=== PATIENT | male | born 1945 | race Caucasian/White ===

== ENCOUNTER 2022-05-24 18:14 | Outpatient (CLI) | payer MEDICARE, SELFPAY ==
--- OUTSIDE RECORDS SUMMARY | 2022-05-24 18:22 | XMS_ITS | Encounter Summary ---
:1945 Author Organization [facility] Address [address] [place] [id number] Care Team Providers Name Role Phone Elsewhere, Pcp Primary Care Provider Unavailable Reason for Visit Reason Comments Med Refill Encounter Details Date Type Department Care Team Description 09/06/2021 Refill Department of Family Medicine Davi Dean APRN, Med Refill in [facility] ynes RussellNYelena, M.S.N. [address] [place] [phone] [place] [phone] (Wo rk) Social History Tobacco Use Types Packs/Day Years Used Date Smoking Tobacco: Never Smokeless Tobacco: Never Comments: I don't care for it. Alcohol Use Standard Drinks/Week Comments No 0 (1 standard drink = 0.6 oz pure alcoho l) Alcohol Habits Answer Date Recorded How often do you have a drink containing alcohol? Monthly or less 06/14/2019 How many drinks containing alcohol do you have on a Patient refused 01/30/2020 typical day when you are drinking? How often do you have six or more drinks on one Never 06/14/2019 occasion? Comment: Not asked Social Isolation Answer Date Recorded In a typical week, how many times do you More than three yennifer es a week 06/14/2019 talk on the phone with family, friends, or neighbors? How often do you get together with friends Once a week 01/30/2020 or relatives? How often do you attend islam or More than 4 times per year 06/14/2019 confucianist services? Do you belong to any clubs or Yes 06/14/2019 organizations such as islam groups, unions, fraternal or athletic groups, or school groups? How often do you attend meetings of the More than 4 times pe r year 06/14/2019 clubs or organizations you belong to? Are you now , , , 06/14/2019 , never or living with a partner? Physical Activity Answer Date Recorded On average, how many days per week do you engage in 2 days 06/14/2019 moderate to strenuous exercise (like walking fast, running, jogging, dancing, swimming, biking, or other activities that cause a light or heavy sweat)? On average, how many minutes do you engage in exercise Patie nt refused 01/30/2020 at this level? Stress Answer Date Recorded Do you feel stress - tense, restless, nervous, or anxious, N ot at all 01/30/2020 or unable to sleep at night because your mind is troubled all the time - these days? Financial Resource Strain Answer Date Recorded How hard is it for you to pay for the very basics like Not v crystal hard 06/14/2019 food, housing, medical care, and heating? Intimate Partner Violence Answer Date Recorded Within the last year, have you been afraid of your partner o r No 06/14/2019 ex-partner? Within the last year, have you been humiliated or emotionall y No 06/14/2019 abused in other ways by your partner or ex-partner? Within the last year, have you been kicked, hit, slapped, or No 06/14/2019 otherwise physically hurt by your partner or ex-partner? Within the last year, have you been raped or forced to have any No 06/14/2019 kind of sexual activity by your partner or ex-partner? Food Insecurity Answer Date Recorded Within the past 12 months, you worried that your food would Never true 06/14/2019 run out before you got money to buy more. Within the past 12 months, the food you bought just didn't N ever true 06/14/2019 last and you didn't have money to get more. Transportation Needs Answer Date Recorded In the past 12 months, has lack of transportation kept you f rom No 06/14/2019 medical appointments or from getting medications? In the past 12 months, has lack of transportation kept you f rom No 01/30/2020 meetings, work, or getting things needed for daily living? Education Answer Date Recorded What is the highest level of school Bachelor's degree (e.g., BA, AB, 06/14/2019 you have completed or the highest BS) degree you have received? Sex Assigned at Date Recorded Male 04/17/2019 1:04 PM CDT documented as of this encounter Miscellaneous Notes Telephone Encounter - Petra Hines - 09/07/2021 12:45 PM CST Jorge no longer is going to be seen at [facility] due to an insurance change. May return if they get new insurance. ITY CONTROL EXPERT Telephone Encounter - Ofelia Montelongo LKamilaP.N. - 09/06/2021 12:17 PM QUALITY CONTROL EXPERT Last visit with you 08/10/20. Scheduling, please call patient to schedule annual exam for further refills. ITY CONTROL EXPERT documented in this encounter Plan of Treatment Not on filedocumented as of this encounter Visit Diagnoses Not on filedocumented in this encounter Care Teams Tax Commissioner Relationship Specialty Start Date End Date Elsewhere, Pcp PCP - General Family Medicine 12/02/20 documented as of this encounter
--- OUTSIDE RECORDS SUMMARY | 2022-05-24 18:22 | XMS_ITS | Clinical Summary ---
:1945 Author Organization [facility] Address [address] [place] [address] Care Team Providers Name Role Phone Elsewhere, Pcp Primary Care Provider Unavailable Source Comments Patient records contain information from all sites at [facility]. For routine questions regarding patient records, call [phone] during business hours, M-F 8:00 AM - 5:00 PM Central Time. Record requests for emergency care only can be directed to [phone] at any time.[facility] Allergies Active Allergy Reactions Severity Noted Date Comments Adhesive Tape-Silicones Rash 05/05/2011 Aspirin Other (see comments) 11/01/2011 Noseble ed Atorvastatin Other (see comments) 03/13/2009 Chest p ain Bee Venom Protein (Honey Other (see comments) 03/13/20 09 Bee) Clindamycin Other (see comments) 03/13/2009 Lisinopril Other (see comments) 06/09/2020 Elevate d potassium Metformin GI intolerance 07/24/2020 Hypokalemia Penicillin Shortness of breath 03/13/2009 Hives Medications Medication Sig Dispensed Refills Start Date End Date Status EPINEPHrine Inject 0.3 mg 0 06/30/2014 Act maurilio (for_EPIPEN) 0.3 intramuscularly once. mg/0.3 mL injection syringe ibuprofen Take 2 tablets by 0 04/14/2017 A ctive (for_ADVIL,MOTRIN) mouth every 4 (four) 200 mg tablet hours as needed. SIMETHICONE ORAL 80 mg as needed. 0 11/11/2013 Active sodium chloride 3 % Administer 2 sprays 0 06/13/2013 Active mist into each nostril 4 (four) times a day as needed. phenylephrine phenylephrine 0.5% 0 08/23/2013 Active (for_NEO-SYNEPHRINE) nasal spray as needed 0.5 % nasal spray for allergies DOCOSAHEXANOIC Take 1 capsule by 0 06/13/2013 Active ACID/EPA (FISH OIL mouth 3 (three) times ORAL) a day. When remembers blood sugar Pharmacy to dispense 400 strip 2 09/09/2019 Active diagnostic (OneTouch strips that are Ultra Blue Test covered by patient's Strip) strips insurance to allow pt to test blood glucose 4 to 5 times daily. E11.22 lancets Pharmacy to dispense 400 each 2 09/09/2019 Active lancets that are covered by patient's insurance to allow patient to test glucose 4 to 5 times a day. ICD 10: E11.22 FLUTICASONE FUROATE Administer into 0 Active NASAL nostril(s) as needed. insulin 2 Injection by 100 each 8 12/06/2019 Acti ve syringe-needle U-100 abdominal 1 mL 31 gauge x 5/16 subcutaneous route syringe daily. chlorhexidine Swish and spit 2 0 04/23/2020 Active (PERIDEX) 0.12 % (two) times a day. mouthwash fluocinonide (LIDEX) Apply 1 application 20 mL 3 0 Active 0.05 % external topically as needed solution for rash (5-6 x month). insulin lispro Inject 82 Units under 180 mL 3 06/09/2020 Active protamin-lispro the skin 2 (two) (HumaLOG Mix times a day before 75-25,U-100,Insuln) breakfast and dinner. 100 unit/mL (75-25) injection albuterol sulfate Inhale 2 puffs every 1 Inhaler 11 06/09/2020 Active (ProAir RespiClick) 4 (four) hours as 90 mcg/actuation needed for wheezing. aerosol powdr breath activated inhaler allopurinoL Take 1 tablet (100 mg 30 tablet 0 09/06/2021 Active (ZYLOPRIM) 100 mg total) by mouth 2 tablet (two) times a day. 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 type vesse l Diabetes Mellitus Type 2 With Diabetic Chronic Kidney Disease 03/10/2011 Hyperglycemic Overview: Diabetes mellitus without mention of com plication, type II or unspecified type, not stated as uncontrolled Family History Coronary Artery Disease 08/12/2009 Overview: Family history of coronary artery diseas e Hypertensive Heart And Chronic Kidney Disease Without Heart Failure And 08/12/2009 With Stage 3 (Moderate) Chronic Kidney Disease Overview: HTN [Hypertension] Hyperlipidemia 08/12/2009 Resolved Problems Problem Noted Date Resolved Date History Of Falling 10/18/2017 06/08/2020 Proteinuria 12/02/2015 06/08/2020 Myocardial Infarction Acute 11/09/2015 06/08/2020 Skin Cancer (Primary) NOS 11/09/2015 06/08/2020 Infection Helicobacter Pylori 07/24/2013 06/08/2020 Arrest Cardiac 08/12/2009 06/08/2020 Overview: Cardiac Arrest Coronary Stent Status Post 08/12/2009 06/08/2020 Pain Leg Left 06/08/2020 Immunizations Name Administration Dates Next Due Influenza high dose QV(65 years or 06/25/2020 older) (PF) Influenza, Seasonal, Injectable 07/05/2019 Influenza, Unspecified 06/13/2016, 06/25/2015, 06/30/2014, 06/13/2013, 06/17/2012, 10/07/2011, 06/30/2010 PCV13 08/05/2015 PPSV23 07/31/2014, 08/09/2006 SARS-COV-2 (COVID-19) - PFIZER (12 11/24/2020, 11/03/2020 years or older) Td (Adult), adsorbed 08/25/2011, 07/14/2003 Tdap 03/29/2018 influenza high dose (65 years or 08/09/2017, 05/27/2016 older) (PF) Family History Medical History Relation Name Comments Cataracts Brother 1 sabino Diabetes Brother 1 sabino Cataracts Brother 2 asvage Coronary artery disease Brother 2 savage Diabetes Brother 2 savage Pacemaker care Brother 2 savage Stroke Brother 2 savage Cataracts Brother 3 bianca Diabetes Brother 3 bianca Glaucoma Brother 3 bianca Diabetes Brother 4 mulu Urolithiasis Brother 4 mulu Brain Tumor Mother rachana Diabetes Sister domenic ORQUIDEA disease Sister domenic Relation Name Status Comments Brother 1 sabino Brother 2 savage Brother 3 bianca Brother 4 mulu Brother 5 Murphy (Age 3) Cause of : MVA Father Duc (Age 55) Mother rachana (Age 88) Sister domenic Social History Tobacco Use Types Packs/Day Years Used Date Smoking Tobacco: Never Smokeless Tobacco: Never Tobacco Cessation: Counseling Given: No Comments: I don't care for it. Alcohol [...] or relatives? How often do you attend alevism or More than 4 times per year 06/14/2019 bahai services? Do you belong to any clubs or Yes 06/14/2019 organizations such as alevism groups, unions, fraternal or athletic groups, or [...] Date Recorded Male 04/17/2019 1:04 PM CDT Last Filed Vital Signs Vital Sign Reading Time Taken Comments Blood Pressure 134/66 07/24/2020 2:27 PM LAUNCH MANAGER Pulse 64 07/24/2020 2:22 PM LAUNCH MANAGER Temperature 36 ??C (96.8 ??F) 07/24/2020 2:22 PM LAUNCH MANAGER Respiratory Rate 20 07/24/2020 2:22 PM LAUNCH MANAGER Oxygen Saturation 96% 01/30/2020 7:52 AM CDT room ai r Inhaled Oxygen Concentration - - Weight 113 kg (249 lb 9 oz) 07/24/2020 2:22 PM LAUNCH MANAGER Height 193 cm (6' 3.98) 06/10/2020 10:06 AM CDT Body Mass Index 30.39 06/10/2020 10:06 AM CDT Plan of Treatment Health Maintenance Due Date Last Done Comments Hepatitis B Vaccines (1 of 3 - 2004 Risk 3-dose series) Diabetes Education 02/21/2017 09/14/2015 Creatinine Level 12/03/2020 12/04/2019, 07/10/2019, 06/26/2019, Additional history exists Urine Albumin 12/03/2020 12/04/2019, 06/03/2019, 05/04/2018, Additional history exists Hemoglobin A1C 12/06/2020 06/08/2020, 12/04/2019, 06/03/2019, Additional history exists Diabetic Office Visit with Foot 06/09/2021 06/09/2020, 04, Exam 10/18/2017, Additional history exists Dilated Eye Exam 06/12/2021 06/12/2020 (Performed elsewhere), 06/03/2019 (Performed elsewhere), 05/24/2018 (Performed elsewhere), Additional history exists Office Visit for Blood Pressure 07/24/2021 07/24/2020 Check / Re-check Depression Screening (Annual 09/11/2021 PHQ-2) Fall Risk Screen (Annual) 09/11/2021 COVID-19 Vaccine (4 - Booster for 10/10/2021 06/10/2021, , Pfizer series) 11/03/2020 Influenza Vaccine (#1) 2022 06/10/2021, 06/25/2020, 07/05/2019, Additional history exists DTaP,Tdap,and Td Vaccines (3 - Td 03/29/2028 03/29/2018, , or Tdap) 08/25/2011, Additional history exists Pneumococcal vaccine (65+ years) Completed 08/05/2015, , 08/09/2006 Hepatitis C Screening Completed 04/12/2017 Zoster Vaccines Completed 10/01/2021, 06/10/2021 Medical Devices Implanted Type Area Feeder Catcher Device Shelf Model / Serial Identifier Expiration / Lot Date Cardiac Cardiac Heart Stent Stent Lens Ult [id number] Ant +17.0d - [id number] - [id number] Ocular Right: Evan 02/08/2022 [id number] / Implanted: Qty: 1 on 07/16/2019 by Bouchra Owens M.D. at [facility] [employer] [id number] / N/A Lens Ult [id number] Ant +18.0d - Sn/A - [id number] Ocular Evan 02/08/2022 [id number] / Implanted: Qty: 1 on 07/30/2019 by Bouchra Owens M.D. at [facility] [employer] N/A / [id number] Insurance Payer Benefit Plan / Subscriber ID Effective Dates Phone Addre ss Type Group AARP AARP MEDICARE [id number] 2020-Present [phone] [address] [address] [place] [address] Advance Directives For more information, please contact: [phone] Latest Code Status on File Code Status Date Activated Date Inactivated Comments Full Code 07/16/2019 10:14 AM 07/16/2019 12:54 PM Full Code: Discussed Full Code 07/16/2019 8:59 AM 07/16/2019 10:14 AM Full Code: Discussed Care Teams Perfect Bind Machine Operator Relationship Specialty Start Date End Date Elsewhere, Pcp PCP - General Family Medicine 12/02/20
--- OUTSIDE RECORDS SUMMARY | 2022-05-24 18:22 | XMS_ITS | Encounter Summary ---
:1945 Author Organization [facility] Address [address] [place] [address] Care Team Providers Name Role Phone Elsewhere, Pcp Primary Care Provider Unavailable Encounter Details Date Type Department Care Team Description 06/07/2021 Orders Only [facility] PCP [facility] Remberto Johnston, DKamilaOKamila [address] [place] [place] [address] (Wo rk) Social History Tobacco Use Types [...] or relatives? How often do you attend confucianist or More than 4 times per year 06/14/2019 mu-ism services? Do you belong to any clubs or Yes 06/14/2019 organizations such as confucianist groups, unions, fraternal or athletic groups, or [...] PM CDT documented as of this encounter Plan of Treatment Not on filedocumented as of this encounter Visit Diagnoses Not on filedocumented in this encounter Care Teams Assistance Specialist Relationship Specialty Start Date End Date Elsewhere, Pcp PCP - General Family Medicine 12/02/20 documented as of this encounter
--- OUTSIDE RECORDS SUMMARY | 2022-05-24 18:22 | XMS_ITS | Encounter Summary ---
:1945 Author Organization [facility] Address [address] [place] [address] Care Team Providers Name Role Phone Ebony Patton APRN, M.S.Mamta., R.N. Primary Care Provider + Reason for Visit Reason Comments Med Refill allopurinol and metoprolol Encounter Details Date Type Department Care Team Description 10/15/2020 Refill Department of [facility] Ebony Patton M ed Refill (allopurinol Medicine in [place] M. S.[place]., R.N. and metoprolol) [address] [phone] Social History Tobacco Use Types Packs/Day Years [...] or relatives? How often do you attend faith or More than 4 times per year 06/14/2019 baptist services? Do you belong to any clubs or Yes 06/14/2019 organizations such as faith groups, unions, fraternal or athletic groups, or [...] this encounter Miscellaneous Notes Telephone Encounter - Marlen Ceballos L.P.N. - 10/15/2020 1:43 PM CAR SALES CONSULTANT Last visit 07/24/20 Last refill 06/12/20- allopurinol and 06/09/20- metoprolol Next appointment scheduled -12/09/20 Pended 180 And 3 refills for allopurinol and 90 with 3 refills for metoprolol SALES CONSULTANT documented in this encounter Plan of Treatment Not on filedocumented as of this encounter Visit Diagnoses Not on filedocumented in this encounter Care Teams Telegraph Service Clerk Relationship Specialty Start Date End Date Ebony Patton APRN, M.S.N., R.N. PCP - General 12/19/19 12/01/[address] [place], [place] [address] [address] documented as of this encounter
--- OUTSIDE RECORDS SUMMARY | 2022-05-24 18:22 | XMS_ITS | Encounter Summary ---
:1945 Author Organization [facility] Address [address] [place] [address] Care Team Providers Name Role Phone Ebony Patton APRN, M.S.N., R.N. Primary Care Provider + Reason for Visit Reason Comments DMV form Encounter Details Date Type Department Care Team Description 08/21/2020 Clinical Communication Department of [facility] Dick iqbal, DMV form Medicine in [facility] [place], Shaka Wei, R.N. [address] [place] [phone] Social History Tobacco Use Types Packs/Day Years [...] or relatives? How often do you attend religion or More than 4 times per year 06/14/2019 bahai services? Do you belong to any clubs or Yes 06/14/2019 organizations such as religion groups, unions, fraternal or athletic groups, or [...] this encounter Miscellaneous Notes Telephone Encounter - Diana Vail - 08/24/2020 1:30 PM CST Form has been faxed to DMV, scanned to chart and sent to DMV. Patient has been notified. [place] INSPECTOR Telephone Encounter - Diana Vail - 08/21/2020 2:15 PM CST Patient dropped off form for DMV. Form had been partially filled out and placed on [employer] temporary desk in [place]. [place] INSPECTOR documented in this encounter Plan of Treatment Not on filedocumented as of this encounter Visit Diagnoses Not on filedocumented in this encounter Care Teams Critical Care Nurse Specialist Relationship Specialty Start Date End Date Ebony Patton APRN, M.S.N., R.N. PCP - General 12/19/19 12/01/[address] [place] [phone] documented as of this encounter
--- OUTSIDE RECORDS SUMMARY | 2022-05-24 18:22 | XMS_ITS | Encounter Summary ---
:1945 Author Organization [facility] Address [address] [place] [address] Care Team Providers Name Role Phone Ebony Patton APRN, M.SKamilaN., R.N. Primary Care Provider + Reason for Referral Specialty Diagnoses / Procedures Referred By Contact Refer red To Contact Cintia Pierre M.D. [facility] [address] [place] [address] Referral ID Status Reason Start Date Expiration Date Visits Requ ested Visits Authorized TATION WORKER CLEANING EQUIPMENT Encounter Details Date Type Department Care Team Description 10/16/2020 Orders Only [facility] PCP [facility] Artur Rincon Jr., M.D. [address] [place] [phone] (Wo rk) Social History Tobacco Use Types [...] or relatives? How often do you attend restorationism or More than 4 times per year 06/14/2019 worship services? Do you belong to any clubs or Yes 06/14/2019 organizations such as restorationism groups, unions, fraternal or athletic groups, or [...] as of this encounter Plan of Treatment Scheduled Referrals Name Type Priority Associated Order Schedule Diagnoses Covid immunization Outpatient Referral Routine Ex pected: office visit Initial 021 (Approximate), Expires: 10/16/2021 documented as of this encounter Visit Diagnoses Not on filedocumented in this encounter Care Teams Credit And Collections Representative Relationship Specialty Start Date End Date Ebony Patton APRN, M.S.N., R.N. PCP - General 12/19/19 12/01/[address] [place] [address] SAKINA Wise [phone] documented as of this encounter
--- OUTSIDE RECORDS SUMMARY | 2022-05-24 18:22 | XMS_ITS | Encounter Summary ---
:1945 Author Organization [facility] Address [address] [place] [address] Care Team Providers Name Role Phone Ebony Patton APRN, M.SIván, R.N. Primary Care Provider + Reason for Referral Outpatient (Routine) - Closed Specialty Diagnoses / Procedures Referred By Contact Refer red To Contact Diagnoses Pain Leg Bilateral Ebony Patton APRN, [facility] Region Procedures Lower Extremity Arterial (PEPPER) - Standard Protocol Sanjuana, R.N. [address] [place] [phone] Referral ID Status Reason Start Date Expiration Date Visits Requ ested Visits Authorized [id number] Closed 07/24/2020 07/24/2021 1 1 CTOR SHOPPER MARKETING Reason for Visit Outpatient (Routine) - Closed Specialty Diagnoses / Procedures Referred By Contact Refer red To Contact Diagnoses Pain Leg Bilateral Ebony Patton APRN, [facility] Region Procedures Lower Extremity Arterial (PEPPER) - Standard Protocol EloiseSIván, R.N. [address] [place] [phone] Referral ID Status Reason Start Date Expiration Date Visits Requ ested Visits Authorized [id number] Closed 07/24/2020 07/24/2021 1 1 Encounter Details Date Type Department Care Team Description 08/12/2020 Hospital Encounter Department of Nico Patton Bilateral Radiology, [place] APRN, [facility], in [place], MKamilaSKamilaN., R. N. [address] [place], [place] [phone] Social History Tobacco Use Types Packs/Day Years [...] or relatives? How often do you attend latter day or More than 4 times per year 06/14/2019 cheondoism services? Do you belong to any clubs or Yes 06/14/2019 organizations such as latter day groups, unions, fraternal or athletic groups, or [...] PM CDT documented as of this encounter Medications at Time of Discharge Medication Sig Dispensed Refills Start Date End Date albuterol sulfate Inhale 2 puffs every 4 1 Inhaler 11 2019 (ProAir RespiClick) (four) hours as needed 90 mcg/actuation for wheezing. aerosol powdr breath activated inhaler blood sugar Pharmacy to dispense 400 strip 2 09/09/2019 diagnostic (OneTouch strips that are Ultra Blue Test covered by patient's Strip) strips insurance to allow pt to test blood glucose 4 to 5 times daily. E11.22 chlorhexidine Swish and spit 2 (two) 0 04/23/2020 (PERIDEX) 0.12 % times a day. mouthwash DOCOSAHEXANOIC Take 1 capsule by 0 06/13/2013 ACID/EPA (FISH OIL mouth 3 (three) times ORAL) a day. When remembers EPINEPHrine Inject 0.3 mg 0 06/30/2014 (for_EPIPEN) 0.3 intramuscularly once. mg/0.3 mL injection syringe fluocinonide (LIDEX) Apply 1 application 20 mL 3 2019 0.05 % external topically as needed solution for rash (5-6 x month). FLUTICASONE FUROATE Administer into 0 NASAL nostril(s) as needed. ibuprofen Take 2 tablets by 0 04/14/2017 (for_ADVIL,MOTRIN) mouth every 4 (four) 200 mg tablet hours as needed. insulin lispro Inject 82 Units under 180 mL 3 06/09/2020 protamin-lispro the skin 2 (two) times (HumaLOG Mix a day before breakfast 75-25,U-100,Insuln) and dinner. 100 unit/mL (75-25) injection insulin 2 Injection by 100 each 8 12/06/2019 syringe-needle U-100 abdominal subcutaneous 1 mL 31 gauge x 5/16 route daily. syringe lancets Pharmacy to dispense 400 each 2 09/09/2019 lancets that are covered by patient's insurance to allow patient to test glucose 4 to 5 times a day. ICD 10: E11.22 phenylephrine phenylephrine 0.5% 0 08/23/2013 (for_NEO-SYNEPHRINE) nasal spray as needed 0.5 % nasal spray for allergies SIMETHICONE ORAL 80 mg as needed. 0 11/11/2013 sodium chloride 3 % Administer 2 sprays 0 013 mist into each nostril 4 (four) times a day as needed. xjlbgi-lcxlrudq-iostj Take 2 capsules by 540 capsule 3 06/1006/10/2021 se (Creon) mouth 3 (three) times 24,000-76,000-120,000 a day. Unit per DR capsuleIndications: Pancreatitis Chronic (HCC) allopurinoL Take 1 tablet (100 mg 180 tablet 3 06/12/2020 (ZYLOPRIM) 100 mg total) by mouth 2 tablet (two) times a day. metoprolol tartrate Take 0.5 tablets (12.5 90 tablet 3 05/1310/15/2020 (LOPRESSOR) 25 mg mg total) by mouth 2 tablet (two) times a day. documented as of this encounter Plan of Treatment Not on filedocumented as of this encounter Procedures Procedure Name Priority Date/Time Associated Diagnosis Comme nts LOWER EXTREMITY Routine 08/12/2020 11:15 AM Pain Leg Bilateral Results for this ARTERIAL - STANDARD DIRECTOR SHOPPER MARKETING procedur e are in PROTOCOL the results section. documented in this encounter Results LOWER EXTREMITY ARTERIAL - STANDARD PROTOCOL (08/12/2020 11:15 AM DIRECTOR SHOPPER MARKETING) Anatomical Region Laterality Modality Ultrasound Specimen (Source) Anatomical Collection Method Collection Time Re ceived Time Location / / Volume Laterality 08/12/2020 9:49 AM DIRECTOR SHOPPER MARKETING Narrative 08/12/2020 9:49 AM DIRECTOR SHOPPER MARKETING Right: Doppler Waveforms: ? Normal at all levels evaluated. ?? Resting Index: ? PEPPER (PT)- ??1.23 ?PEPPER (DP)- ??1.17 ?TBI- ??0.92 ?? Left: Doppler Waveforms: ? Normal at all levels evaluated. ?? Resting Index: ? PEPPER (PT)- ??1.12 ?PEPPER (DP)- ??1.25 ?TBI- ??0.73 ?? General: PEPPER standard completed Left omar f > 1.4 ?? Conclusions: Normal bilateral ABIs. Wave form evaluation with no evidence of focal severe stenosis. Procedure Note Sean Justice M.D. - 08/14/2020Formatt ing of this note might be different from the original. Right: Doppler Waveforms: Normal at all levels evaluated. Resting Index: PEPPER (PT)- 1.23 PEPPER (DP)- 1.17 TBI- 0.92 Left: Doppler Waveforms: Normal at all l evels evaluated. Resting Index: PPEPER (PT)- 1.12 PEPPER (DP)- 1.25 TBI- 0.73 General: PEPPER standard completed Left omar f > 1.4 Conclusions: Normal bilateral ABIs. Wave form evaluation with no evidence of focal severe stenosis. Ebony Patton APRN, M.S.N., R.N. CV VASCULAR PROCED URES documented in this encounter Visit Diagnoses Diagnosis Pain Leg Bilateral documented in this encounter Care Teams Spice Cleaner Relationship Specialty Start Date End Date Ebony Patton APRN, M.S.N., R.N. PCP - General 12/19/19 12/01/[address] [place], [place] [address] [phone] documented as of this encounter
--- OUTSIDE RECORDS SUMMARY | 2022-05-24 18:22 | XMS_ITS | Encounter Summary ---
:1945 Author Organization [facility] Address [address] [place] [address] Care Team Providers Name Role Phone Elsewhere, Pcp Primary Care Provider Unavailable Reason for Visit Reason Comments Med Refill Encounter Details Date Type Department Care Team Description 11/09/2021 Refill Department of Family Medicine Ebony Patton APRN, Med Refill in [facility] [place] ynes M.S.N., R.N. [address] [place] [phone] [place] [phone] (Wo rk) Social History Tobacco Use Types [...] or relatives? How often do you attend yarsanism or More than 4 times per year 06/14/2019 anabaptist services? Do you belong to any clubs or Yes 06/14/2019 organizations such as yarsanism groups, unions, fraternal or athletic groups, or [...] this encounter Miscellaneous Notes Telephone Encounter - Ofelia Montelongo L.P.N. - 11/09/2021 8:19 AM FIRE OFFICER Spoke with patient. Meds were not meant to go to us. Pt will call [facility] to get this fixed. OFFICER Telephone Encounter - Ofelia Montelongo L.P.N. - 11/09/2021 8:11 AM FIRE OFFICER Last visit with you 08/12/20. Scheduling, please call patient to schedule annual exam for further refills. OFFICER documented in this encounter Plan of Treatment Not on filedocumented as of this encounter Visit Diagnoses Not on filedocumented in this encounter Care Teams Steam Hammer Operator Relationship Specialty Start Date End Date Elsewhere, Pcp PCP - General Family Medicine 12/02/20 documented as of this encounter
--- OUTSIDE RECORDS SUMMARY | 2022-05-24 18:22 | XMS_ITS | Encounter Summary ---
:1945 Author Organization [facility] Address [address] [place] [address] Care Team Providers Name Role Phone Ebony Patton APRN M.S.N., R.N. Primary Care Provider + Reason for Referral Outpatient (Routine) - Closed Specialty Diagnoses / Procedures Referred By Contact Refer red To Contact Diagnoses Pain Leg Bilateral [facility]ony [facility] Region Procedures Lower Extremity Arterial (PEPPER) - Standard Protocol M.S.Mamta., R.N. [address] [place] [phone] Referral ID Status Reason Start Date Expiration Date Visits Requ ested Visits Authorized [id number] Closed 07/24/2020 07/24/2021 1 1 TMILLER Reason for Visit Reason Comments Medication Question switching insulin d/t covera ge Leg Pain bilat notice when up doing w ork Outpatient (Routine) - Canceled Specialty Diagnoses / Procedures Referred By Contact Refer red To Contact Family Medicine Ebony Patton [facility] Region M.S.N., R.N. [address] [place] [phone] 1 Referral ID Status Reason Start Date Expiration Date Visits V isits Requested Authorized [id number] Canceled 06/09/2020 06/09/2021 1 1 Encounter Details Date Type Department Care Team Description 07/24/2020 Office Visit Department of Family Nico Patton Bilateral (Primary Dx); Medicine in Eb[place], NETEZZA ARCHITECT, Diabetes [facility] Type 2 With Diabetic Chronic Kidney Disease Hyperglycemic (HCC) Shaka Hood, R.N. [address] [place] [address] [phone] Social History Tobacco Use Types Packs/Day Years [...] or relatives? How often do you attend yazidi or More than 4 times per year 06/14/2019 mormonism services? Do you belong to any clubs or Yes 06/14/2019 organizations such as yazidi groups, unions, fraternal or athletic groups, or [...] PM CDT documented as of this encounter Last Filed Vital Signs Vital Sign Reading Time Taken Comments Blood Pressure 134/66 07/24/2020 2:27 PM GRISTMILLER Pulse 64 07/24/2020 2:22 PM GRISTMILLER Temperature 36 ??C (96.8 ??F) 07/24/2020 2:22 PM GRISTMILLER Respiratory Rate 20 07/24/2020 2:22 PM GRISTMILLER Oxygen Saturation - - Inhaled Oxygen Concentration - - Weight 113 kg (249 lb 9 oz) 07/24/2020 2:22 PM GRISTMILLER Height - - Body Mass Index 30.39 06/10/2020 10:06 AM CDT documented in this encounter Progress Notes Ebony Patton, CHARY, C.N.P., M.S.N. - 07/24/2020 2:30 PM CST SUBJECTIVE CHIEF COMPLAINT/REASON FOR VISIT Chief Complaint Patient presents with ??? Medication Question switching insulin d/t coverage ??? Leg Pain bilat notice when up doing work HISTORY OF PRESENT ILLNESS Jorge Chance is a 75 y.o. male who presents to the clinic today for evaluation of right lower calf leg pain progressing over the last month, and wanting to know this provider's recommendationsfor Medicare supplemental insurance, and to see if switching from humalog to novolog flex pen (70-30) would be a problem if he switched insurance companies. He reports right lower calf pain worse with standing and walking around, and intermittently in the left leg, also some twitching in his legs, sometimes in the overnight hours per his . He is wondering what could be causing this. He states his legs seem to be cold at times. He does have neuropathy and is wondering if this could be a pronblem. Also reports his feet become purple at times. He stateshe does not feel like he has good circulation. He completed a lower extremity ultrasound in 2014 that was normal PEPPER. He presents with his Clara. He has a medical history positive for diabetes mellitus type 2, chronic pancreatitis, last visit with GI was in March of 2019, history of H pylori gastritis in 2012, hypertensive heart and chronic kidney disease without heart failure, history of coronary artery disease with out of hospital cardiac arrest in 2005 secondary to LAD stenosis with anterior UT, hyperlipidemia, and gout. His last colonoscopy was in 2012 is due for repeat 2022. ?? CURRENT MEDICATIONS Current Outpatient Medications Medication Sig Dispense Refill ??? albuterol sulfate (ProAir RespiClick) 90 mcg/actuation aerosol powdr breath activated inhaler Inhale 2 puffs every 4 (four) hours as needed for wheezing. 1 Inhaler 11 ??? allopurinoL (ZYLOPRIM) 100 mg tablet Take 1 tablet (100 mg total) by mouth 2 (two) times a day. 180 tablet 3 ??? blood sugar diagnostic (OneTouch Ultra Blue Test Strip) strips Pharmacy to dispense strips that are covered by patient's insurance to allow pt to test blood glucose 4 to 5 times daily. E11.22 400 strip 2 ??? DOCOSAHEXANOIC ACID/EPA (FISH OIL ORAL) Take 1 capsule by mouth 3 (three) times a day. When remembers ??? EPINEPHrine (for_EPIPEN) 0.3 mg/0.3 mL injection syringe Inject 0.3 mg intramuscularly once. ??? fluocinonide (LIDEX) 0.05 % external solution Apply 1 application topically as needed for rash (5-6 x month). 20 mL 3 ??? FLUTICASONE FUROATE NASAL Administer into nostril(s) as needed. ??? ibuprofen (for_ADVIL,MOTRIN) 200 mg tablet Take 2 tablets by mouth every 4 (four) hours as needed. ??? insulin lispro protamin-lispro (HumaLOG Mix 75-25,U-100,Insuln) 100 unit/mL (75-25) injection Inject 82 Units under the skin 2 (two) times a day before breakfast and dinner. 180 mL 3 ??? insulin syringe-needle U-100 1 mL 31 gauge x 5/16 syringe 2 Injection by abdominal subcutaneous route daily. 100 each 8 ??? lancets Pharmacy to dispense lancets that are covered by patient's insurance to allow patient totest glucose 4 to 5 times a day. ICD 10: E11.22 400 each 2 ??? gnafub-kcsirhbk-repqlht (Creon) 24,000-76,000-120,[address] capsule Take 2 capsules by mouth 3 (three) times a day. 540 capsule 3 ??? metoprolol tartrate (LOPRESSOR) 25 mg tablet Take 0.5 tablets (12.5 mg total) by mouth 2 (two) times a day. 90 tablet 3 ??? SIMETHICONE ORAL 80 mg as needed. ??? sodium chloride 3 % mist Administer 2 sprays into each nostril 4 (four) times a day as needed. ??? chlorhexidine (PERIDEX) 0.12 % mouthwash Swish and spit 2 (two) times a day. ??? phenylephrine (for_NEO-SYNEPHRINE) 0.5 % nasal spray phenylephrine 0.5% nasal spray as needed for allergies No current facility-administered medications for this visit. ALLERGIES/CONTRAINDICATIONS Allergies Allergen Reactions ??? Adhesive Tape-Silicones Rash ??? Aspirin Other (see comments) Nosebleed ??? Atorvastatin Other (see comments) Chest pain ??? Bee Venom Protein (Honey Bee) Other (see comments) ??? Clindamycin Other (see comments) ??? Lisinopril Other (see comments) Elevated potassium ??? Metformin GI intolerance Hypokalemia ??? Penicillin Shortness of breath Hives REVIEW OF SYSTEMS Constitutional: Positive for fatigue. Genitourinary: Positive for urgency and erectile dysfunction. Musculoskeletal: Positive for back pain. Neurological: Positive for numbness or shooting pain in hands, arms, legs, or feet. The following systems were negative: Skin, Eyes, ENT, CV, Respiratory, GI, Hematologic MEDICAL HISTORY Past Medical History: Diagnosis Date ??? Arrest Cardiac (HCC) ??? Cataract 2009 ??? Coronary Artery Disease (Unspecified) ??? Diabetes Mellitus NOS ??? History Of Falling ??? Hyperlipidemia ??? Hypertension NOS ??? Infection Helicobacter Pylori ??? Myocardial Infarction Acute (HCC) ??? Pancreatitis Chronic (HCC) ??? Proteinuria ??? Skin Cancer (Primary) NOS SURGICAL HISTORY Past Surgical History: Procedure Laterality Date ??? CAROTID ARTERY ANGIOPLASTY 2005 ??? CORONARY STENT PLACEMENT 2005 ??? MOUTH SURGERY ??? OSTECTOMY OF CALCANEUS FOR SPUR N/A 02/23/2007 Excision of calcaneal spur ??? OTHER SURGICAL HISTORY 2000 bone spurs removed ??? PHACOEMULSIFICATION CATARACT WITH INTRAOCULAR LENS IMPLANTATION Right 07/16/2019 Procedure: PHACOEMULSIFICATION CATARACT WITH INTRAOCULAR LENS IMPLANTATION; Surgeon: Bouchra Ta M.D.; Location: [facility] OR ??? PHACOEMULSIFICATION CATARACT WITH INTRAOCULAR LENS IMPLANTATION Left 07/30/2019 Procedure: PHACOEMULSIFICATION CATARACT WITH INTRAOCULAR LENS IMPLANTATION; Surgeon: Bouchra Ta M.D.; Location: [facility] OR ??? PLACEMENT OF STENT IN CARDIAC CONDUIT 2005 OBJECTIVE VITAL SIGNS BP 134/66 Pulse 64 Temp 36 ??C (Temporal) Resp 20 Wt 113 kg BMI 30.39 kg/m?? PHYSICAL EXAMINATION General: Alert male in no acute distress, nontoxic in appearance, well dressed, normal hygiene. HEENT: Head normocephalic, atraumatic. Neck: Supple. Cardiovascular: Regular rate, rhythm, S1, S2. No edema. Respiratory: Lungs clear to auscultation in the anterior chest, easy respirations. Nonlabored breathing. Neurologic: Alert, oriented, steady gait. Extremities: Cool lower extremities bilaterally, pedis pulses 2+. Negative homans test. No edema. Noopen sores or erythema. Cap refill less than 2 seconds. ASSESSMENT / PLAN #1 Pain Leg Bilateral - Lower Extremity Arterial (PEPPER) - Standard Protocol; Future; Expected date: 07/24/2020 #2 Diabetes Mellitus Type 2 With Diabetic Chronic Kidney Disease Hyperglycemic (HCC) Differential diagnosis includes spinal stenosis, electrolyte disturbance, neuropathy, claudication, venous insufficiency, atherosclerosis, myofascial pain. We discussed with his cool feet bilaterally, although good pulses, there may be concern for lower extremity atherosclerosis. No difference in calf circumference. No varicosities. No erythema, warmth. Negative Homans signs. Pedis pulse 2+. This may be the start of claudication. He does have a history of coronary artery disease. We discussed doing a Mag level, electrolytes to see if he would have someclonus sort of symptoms from electrolytes changes. He defers. He would like to start with a standardABI per ask Camejo Expert for atherosclerosis. He states that his brother recently got treated for plaque buildup in his legs. Recommend stretching, adequate hydration, and close observation. We also discussed switching from Humalog to NovoLog would not be an issue. Recommend he choose a supplemental insurance that is most comfortable with his financial strategies,and directed care. Patient agrees with plan, verbalizes understanding of plan, and is receptive to plan. Patient was provided verbal and written education. Patient has no further questions or concerns. Patient will follow up as needed or at the next scheduled return visit. Patient will call the clinic if there are any further questions or concerns in the meantime. Thank you for letting me be involved in your care. TMILLER documented in this encounter Plan of Treatment Not on filedocumented as of this encounter Results LOWER EXTREMITY ARTERIAL - STANDARD PROTOCOL (08/12/2020 11:15 AM GRISTMILLER) Anatomical Region Laterality Modality Ultrasound Specimen (Source) Anatomical Collection Method Collection Time Re ceived Time Location / / Volume Laterality 08/12/2020 9:49 AM GRISTMILLER Narrative 08/12/2020 9:49 AM GRISTMILLER Right: Doppler Waveforms: ? Normal at all [...] at all l evels evaluated. Resting Index: PEPPER (PT)- 1.12 PEPPER (DP)- 1.25 TBI- 0.73 General: PEPPER standard completed Left omar f > 1.4 Conclusions: Normal bilateral ABIs. Wave form evaluation with no evidence of focal severe stenosis. Ebony Patton APRN, M.S.N., R.N. CV VASCULAR PROCED URES documented in this encounter Visit Diagnoses Diagnosis Pain Leg Bilateral - Primary Diabetes Mellitus Type 2 With Diabetic C hronic Kidney Disease Hyperglycemic (HCC) Pain Leg Bilateral documented in this encounter Care Teams District Resource Officer Relationship Specialty Start Date End Date Ebony Patton APRN, M.S.N., R.N. PCP - General 12/19/19 12/01/[address] [place] [phone] documented as of this encounter
--- OUTSIDE RECORDS SUMMARY | 2022-05-24 18:22 | XMS_ITS | Encounter Summary ---
:1945 Author Organization [facility] Address [address] [place] [address] Care Team Providers Name Role Phone Ebony Patton APRN, M.S.N., R.N. Primary Care Provider + Encounter Details Date Type Department Care Team Description 11/24/2020 Immunization Business Service Irma Riddle [facility] For COVID-19 [facility] [place] Vaccine Immunization [place] [id number] [facility] [address] [place] [phone] Social History Tobacco Use Types Packs/Day Years [...] or relatives? How often do you attend mormonism or More than 4 times per year 06/14/2019 catholic services? Do you belong to any clubs or Yes 06/14/2019 organizations such as mormonism groups, unions, fraternal or athletic groups, or [...] filedocumented as of this encounter Visit Diagnoses Diagnosis Encounter For COVID-19 Vaccine Immunizat ion documented in this encounter Care Teams Warehouse Logistics Manager Relationship Specialty Start Date End Date Ebony Patton APRN, M.S.N., R.N. PCP - General 12/19/19 12/01/[address] [place] [address] [place] [phone] documented as of this encounter
--- OUTSIDE RECORDS SUMMARY | 2022-05-24 18:22 | XMS_ITS | Encounter Summary ---
:1945 Author Organization [facility] Address [address] [place] [address] Care Team Providers Name Role Phone Ebony Patton APRN, M.SPilar., R.N. Primary Care Provider + Reason for Referral Specialty Diagnoses / Procedures Referred By Contact Refer red To Contact [facility] [address] [place] [phone] Referral ID Status Reason Start Date Expiration Date Visits Requ ested Visits Authorized CE TEST ENGINEER Encounter Details Date Type Department Care Team Description 11/03/2020 Immunization [facility]co unter For COVID-19 in [place], [place] Vaccine Immunization [address] (Primary Dx) [place] [phone] Social History Tobacco Use Types Packs/Day Years [...] or relatives? How often do you attend denominational or More than 4 times per year 06/14/2019 temple services? Do you belong to any clubs or Yes 06/14/2019 organizations such as denominational groups, unions, fraternal or athletic groups, or [...] pay for the very basics like Not mayra crystal hard 06/14/2019 food, housing, medical care, [...] Treatment Scheduled Referrals Name Type Priority Associated Diagnoses Order S chedule Covid immunization Outpatient Referral Routine Encounter For E xpected: office visit COVID-19 Vaccine 11/24/2020, Subsequent; 21 days Immunization Expires: 11/03/2023 documented as of this encounter Visit Diagnoses Diagnosis Encounter For COVID-19 Vaccine Immunizat ion - Primary documented in this encounter Care Teams City Letter Carrier Relationship Specialty Start Date End Date Ebony Patton APRN, M.S.N., R.N. PCP - General 12/19/19 12/01/[address] [place] [address] [place] [phone] documented as of this encounter
--- OUTSIDE RECORDS SUMMARY | 2022-05-24 18:23 | XMS_ITS | Encounter Summary ---
:1945 Author Organization [facility] Address [address] [place] [id number] Care Team Providers Name Role Phone Cathy Mccoy M.D. Primary Care Provider Unavailable Reason for Visit Reason Onset Date Comments Med Refill 10/11/2019 Encounter Details Date Type Department Care Team Description 10/11/2019 Clinical Communication Department of [facility] Diane patterson, Med Refill Medicine in Cathy Hood M.D. [address] [address] Social History Tobacco Use Types Packs/Day Years Used Date Smoking Tobacco: Never Smokeless Tobacco: Never Alcohol Use Standard Drinks/Week Comments No 0 [...] or relatives? How often do you attend tenriism or More than 4 times per year 06/14/2019 restorationist services? Do you belong to any clubs or Yes 06/14/2019 organizations such as tenriism groups, unions, fraternal or athletic groups, or [...] this encounter Miscellaneous Notes Telephone Encounter - Asia Hien Blade - 10/11/2019 2:09 PM CST Pended to provider an 90 day supply script. Please see that encounter F MEDICAL OFFICER Telephone Encounter - Jenny Perkins - 10/11/2019 12:09 PM CST Please do not reply to sender,emails are not monitored. Thank you. If you need a prescription refill please call your pharmacy. Please allow 3 business days for processing. Expert RN: N/A (Med Refill Only) Call Center Template: ??? May we leave a message for you on this phone? yes What can I help you with today? Patient is wanting a 90 day supply of his humalog mix. [facility] He will save money by getting a 90 day supply. Please call with questions. ??? If Medication Refill: o What is the name and strength of the medication? o What do you use the medication for? o How many pills do you have left? o What pharmacy do you use (include location)? I will send this information to the appropriate staff member who will look into your concern. Is there anything else I can help you with today? Thank you for calling [facility]. F MEDICAL OFFICER documented in this encounter Plan of Treatment Not on filedocumented as of this encounter Visit Diagnoses Not on filedocumented in this encounter Care Teams Silo Man Relationship Specialty Start Date End Date Cathy Mccoy M.D. PCP - General 02/23/17 12/18/19 documented as of this encounter
--- OUTSIDE RECORDS SUMMARY | 2022-05-24 18:23 | XMS_ITS | Encounter Summary ---
:[address] [facility] Address [address] [place] [address] Care Team Providers Name Role Phone Ebony Ptaton APRN M.S.N., R.N. Primary Care Provider + Reason for Referral Outpatient (Routine) - Closed Specialty Diagnoses / Procedures Referred By Contact Refer red To Contact Diagnoses Cyst Epidermal Karina Herman M.D. Procedures Lesion Excision and Closure [facility] [place] [address] Referral ID Status Reason Start Date Expiration Date Visits Requ ested Visits Authorized [id number] Closed 02/10/2020 02/09/2021 1 1 Reason for Visit Reason Comments Procedure cyst on neck and left should er Outpatient (Routine) - Closed Specialty Diagnoses / Procedures Referred By Contact Refer red To Contact General Surgery Diagnoses Cyst Epidermal Steffany Jose APRN, [facility] C.N.P., M.S.N. [address] [place] [phone] Referral ID Status Reason Start Date Expiration Date Visits V isits Requested Authorized [id number] Closed Specialty 01/30/2020 01/29/2021 1 1 Services Required Encounter Details Date Type Department Care Team Description 02/10/2020 Comprehensive Visit Department of Karina Herman Cyst Ep idermal General Surgery in Junior (Primary Dx) [place], [place] [address] [facility] [address] [place], [place] [phone] Social History Tobacco Use Types Packs/Day Years [...] More than 4 times per year 06/14/2019 jainism services? Do you belong to any clubs [...] Sign Reading Time Taken Comments Blood Pressure - - Pulse - - Temperature 36.2 ??C (97.2 ??F) 02/10/2020 8:32 AM CDT Respiratory Rate 18 02/10/2020 8:32 AM CDT Oxygen Saturation - - Inhaled Oxygen Concentration - - Weight 111 kg (244 lb 4.3 oz) 02/10/2020 8:32 AM CDT Height 193 cm (6' 3.98) 02/10/2020 8:32 AM CDT Body Mass Index 29.75 02/10/2020 8:32 AM CDT documented in this encounter Procedure Notes Karina Herman M.D. - 02/10/2020 8:30 AM CDTAssociated Order(s): Lesion Excision and Closure Post-Procedure Diagnose(s): Cyst Epidermal Lesion Excision and Closure Date/Time: 02/10/2020 11:09 AM Performed by: Karina Herman M.D. Authorized by: Karina Herman M.D. Care team members present 1. Karina Herman M.D. 2. Kathleen Jenkins L.P.N. PROCEDURE DETAILS Number of lesions: 3 Lesion Number 1 Location on body: head/neck Head/Neck: neck Neck: anterior, right side. Size of lesion: 0.5 cm Size of total margins (both edges): 0 cm Size of lesion + margin: 0.5 cm Excision depth: subcutaneous Specimen sent for pathology: no (noted in comment) Malignancy: Benign lesion - Epidermoid cyst (epidermal inclusion or sebaceous cysts) Wound closure / hemostasis: wound closure Wound closure: simple Suture size: 4-0 Suture technique: subcuticular Photo taken: no Lesion Number 2 Location on body: posterior trunk Posterior trunk: left periscapular. Size of lesion: 1 cm Size of total margins (both edges): 0 cm Size of lesion + margin: 1 cm Excision depth: subcutaneous Specimen sent for pathology: no (noted in comment) Malignancy: Benign lesion- Epidermoid cyst (epidermal inclusion or sebaceous cysts) Wound closure / hemostasis: wound closure Wound closure: simple Suture size: 4-0 Suture material: Monocryl Suture technique: subcuticular Photo taken: no Lesion Number 3 Location on body: posterior trunk Posterior trunk: left periscapular. Size of lesion: 0.5 cm Size of total margins (both edges): 0 cm Size of lesion + margin: 0.5 cm Excision depth: subcutaneous Specimen sent for pathology: no (noted in comment) Malignancy: Benign lesion- Epidermoid cyst (epidermal inclusion or sebaceous cysts) Wound closure / hemostasis: wound closure Wound closure: simple Suture size: 4-0 Suture material: Monocryl Photo taken: no CONSENT Consent obtained: written UNIVERSAL PROTOCOL All relevant documentation and testing were reviewed and available. All required blood products, implants, devices and or special equipment were made available as applicable. Pre-procedure verificationwas conducted and the correct site was marked if required. A fire risk assessment was done as applicable. The procedural time-out was conducted prior to performing the procedure and confirmed in a procedural pause. PRE-PROCEDURE DETAILS Procedure purpose: therapeutic Appropriate hand hygiene, gown, cap, mask, protective eyewear, sterile gloves, skin preparation, sterile drape, and strict aseptic technique were utilized as applicable for the procedure.: Yes Site preparation: chlorhexidine SEDATION / ANESTHESIA Anesthesia method: local infiltration Local infiltrate type: lidocaine, with epinephrine POST-PROCEDURE DETAILS Estimated blood loss: minimal Procedure completed successfully: Yes Complications: No apparent complications Tolerance: well tolerated Follow-up: yes, requested as ordered documented in this encounter Consult Notes Karina Herman M.D. - 02/10/2020 8:30 AM CDT SUBJECTIVE CHIEF COMPLAINT/REASON FOR VISIT Neck cyst and left shoulder cyst. Referring provider: Steffany Jose APRN, C.N.Ashok., M.S.N. HISTORY OF PRESENT ILLNESS Jorge Chance is a 74 y.o. man who is referred by Steffany Jose APRN, C.Pete, M.S.N. with a chief complaint of a neck cyst and a left shoulder cyst. The patient has had the neck cyst for several weeks. It is been much larger in size than it is currently. Several days ago the patient and his squeezed a bunch of fluid out of the cyst. In addition, the patient has a cyst over his left scapular area. He has had this skin lesion for about five years or so. It is not drain for several years but he still notes that it is present. PAST MEDICAL HISTORY: Past Medical History: Diagnosis Date ??? Arrest Cardiac (HCC) ??? Coronary Artery Disease (Unspecified) ??? Diabetes Mellitus NOS ??? History Of Falling ??? Hyperlipidemia ??? Hypertension NOS ??? Infection Helicobacter Pylori ??? Myocardial Infarction Acute (HCC) ??? Pancreatitis Chronic (HCC) ??? Proteinuria ??? Skin Cancer (Primary) NOS PAST SURGICAL HISTORY: Past Surgical History: Procedure Laterality Date ??? MOUTH SURGERY ??? OSTECTOMY OF CALCANEUS FOR SPUR N/A 02/23/2007 Excision of calcaneal spur ??? PHACOEMULSIFICATION CATARACT WITH INTRAOCULAR LENS IMPLANTATION Right 07/16/2019 Procedure: PHACOEMULSIFICATION CATARACT WITH INTRAOCULAR LENS IMPLANTATION; Surgeon: Bouchra Ta M.D.; Location: [facility] OR ??? PHACOEMULSIFICATION CATARACT WITH INTRAOCULAR LENS IMPLANTATION Left 07/30/2019 Procedure: PHACOEMULSIFICATION CATARACT WITH INTRAOCULAR LENS IMPLANTATION; Surgeon: Bouchra Ta M.D.; Location: [facility] OR ??? PLACEMENT OF STENT IN CARDIAC CONDUIT 2005 MEDICATIONS: Current Outpatient Medications on File Prior to Visit Medication Sig Dispense Refill ??? albuterol sulfate (ProAir RespiClick) 90 mcg/actuation aerosol powdr breath activated inhaler Inhale 2 puffs every 4 (four) hours as needed for wheezing. 1 Inhaler 11 ??? allopurinol (ZYLOPRIM) 100 mg tablet TAKE 1 TABLET (100 MG) BY MOUTH TWO TIMES A DAY. 180 tablet2 ??? blood sugar diagnostic (MacroSolveuch Ultra Blue Test Strip) strips Pharmacy to dispense strips that are covered by patient's insurance to allow pt to test blood glucose 4 to 5 times daily. E11.22 400 strip 2 ??? diphenhydrAMINE (for_BENADRYL) 25 mg tablet Take 25 mg by mouth as needed. ??? DOCOSAHEXANOIC ACID/EPA (FISH OIL ORAL) Take 1 capsule by mouth 3 (three) times a day. When remembers ??? EPINEPHrine (for_EPIPEN) 0.3 mg/0.3 mL injection syringe Inject 0.3 mg intramuscularly once. ??? fluocinonide (LIDEX) 0.05 % external solution Apply 1 application topically as needed for rash (5-6 x month). 20 mL 3 ??? FLUTICASONE FUROATE NASAL Administer into affected nostril(s). ??? gemfibrozil (LOPID) 600 mg tablet TAKE 1 TABLET (600 MG) BY MOUTH TWO TIMES A DAY. 180 tablet 3 ??? ibuprofen (for_ADVIL,MOTRIN) 200 mg tablet Take 2 tablets by mouth every 4 (four) hours as needed. ??? insulin lispro protamin-lispro (HumaLOG Mix 75-25,U-100,Insuln) 100 unit/mL (75-25) injection Inject 0.9 mL (90 Units total) under the skin 2 (two) times a day. 180 mL 3 ??? insulin syringe-needle U-100 1 mL 31 gauge x 5/16 syringe 2 Injection by abdominal subcutaneous route daily. 100 each 8 ??? lancets Pharmacy to dispense lancets that are covered by patient's insurance to allow patient totest glucose 4 to 5 times a day. ICD 10: E11.22 400 each 2 ??? ofzfno-kscqrnyl-naexkmv (Creon) 24,000-76,000-120,[address] capsule Take 2 capsules by mouth 3 (three) times a day. 540 capsule 3 ??? metoprolol tartrate (LOPRESSOR) 25 mg tablet TAKE 1/2 TABLET (12.5MG) BY MOUTH TWO TIMES A DAY 90 tablet 3 ??? nitroglycerin (NITROSTAT) 0.[address] 1 tablet (0.4 mg total) under the tongue every 5 (five) minutes as needed for chest pain. 25 tablet 0 ??? phenylephrine (for_NEO-SYNEPHRINE) 0.5 % nasal spray phenylephrine 0.5% nasal spray as needed for allergies ??? SIMETHICONE ORAL 80 mg as needed. ??? sodium chloride 3 % mist Administer 2 sprays into each nostril 4 (four) times a day as needed. No current facility-administered medications on file prior to visit. ALLERGIES: Allergies Allergen Reactions ??? Adhesive Tape-Silicones Rash ??? Aspirin Other (see comments) Nosebleed ??? Atorvastatin Other (see comments) Chest pain ??? Bee Venom Protein (Honey Bee) Other (see comments) ??? Clindamycin Other (see comments) ??? Penicillin Shortness of breath Hives Social History Tobacco Use ??? Smoking status: Never Smoker ??? Smokeless tobacco: Never Used Substance Use Topics ??? Alcohol use: No Frequency: Monthly or less Drinks per session: Patient refused Binge frequency: Never FAMILY HISTORY His family history includes Brain Tumor in his mother; Cataracts in his brother, brother, and brother; Coronary artery disease in his brother; Diabetes in his brother, brother, brother, brother, and sister; ORQUIDEA disease in his sister; Glaucoma in his brother; Pacemaker care in his brother; Stroke in his brother; Urolithiasis in his brother. REVIEW OF SYSTEMS OBJECTIVE PHYSICAL EXAM VITAL SIGNS Temp 36.2 ??C (Temporal) Resp 18 Ht 193 cm Wt 111 kg BMI 29.75 kg/m?? GENERAL: Jorge Chance is a well-developed, well-nourished man who appears in no acute distress. NECK: At the base of the patient's right neck just posterior to his anterior sternocleidomastoid there is a small skin cyst. This feels entirely subcutaneous. It is soft and mobile. It is about 5 mm insize. Today, I cannot squish any fluid out of it. BACK: Examination of the left shoulder area reveals actually two small lumps within the skin. One isabout 1 cm in size in the others maybe 5 mm or so in size. The larger one appears to have a skin punctum but I cannot squeeze fluid out of it. They are both soft and mobile. They both feel entirely subcutaneous. LABS: Lab Results Component Value Date WBC 6.0 07/10/2019 HGB 15.4 07/10/2019 HCT 46.7 07/10/2019 PLT 178 07/10/2019 NA 140 12/04/2019 K 4.8 12/04/2019 CL 107 12/04/2019 HCO3 22 07/10/2019 CREATININE 1.40 (H) 12/04/2019 ALT 29 03/28/2019 AST 32 12/04/2019 CALCIUM 9.6 12/04/2019 BILITOT 0.4 03/28/2019 IMAGING: No results found. ASSESSMENT / PLAN #1 Cyst Epidermal PLAN The patient is a 74-year-old gentleman who appears to have three subcutaneous cyst. One is at the base of his right neck and the other two are over his posterior shoulder area. He is interested in excision of all of these today. I explained to the patient and his that this would be a short procedure that I could do for him in the office today. Risks of the procedure would be including but not limited to risk of bleeding, infection and recurrence of the lesions. The patient gave written consent to proceed. The procedure was completed successfully and please see the procedure note for full details. The patient was given post-procedure wound care instructions in a written and verbal format. I will see him back on a p.r.n. basis. Answers for HPI/ROS submitted by the patient on 01/29/2020 Fatigue: Yes No eye issues: Yes No ENT issues: Yes Pain in the calf muscles when walking: Yes No respiratory issues: Yes No GI issues: Yes Muscle pain/stiffness: Yes Change in mole or skin spot: Yes Numbness or shooting pain in hands, arms, legs or feet: Yes Weakness in arms and/or legs: Yes No mental health issues: Yes No blood/lymph issues: Yes Erectile dysfunction: Yes documented in this encounter Plan of Treatment Not on filedocumented as of this encounter Procedures Procedure Name Priority Date/Time Associated Diagnosis Comme nts LESION EXCISION AND Routine 02/10/2020 8:30 AM Cyst Epidermal Results for this CLOSURE CDT procedure are i n the results section. documented in this encounter Results Lesion Excision and Closure (02/10/2020 8:30 AM CDT) Narrative Karina Herman M.D. - 02/10/2020 8:30 AM CDT Karina Herman M.D. ? 02/10/2020 11:12 AM Lesion Excision and Closure Date/Time: 02/10/2020 11:09 AM Performed by: Karina Herman M.D. Authorized by: Karina Herman M.D. Care team members present 1. Karina Herman M.D. 2. Kathleen Jenkins L.P.N. PROCEDURE DETAILS ?? Number of lesions: 3 Lesion Number 1 Location on body: head/neck Head/Neck: neck Neck: anterior, right side. Size of lesion: 0.5 cm Size of total margins (both edges): 0 cm Size of lesion + margin: 0.5 cm Excision depth: subcutaneous Specimen sent for pathology: no (noted i n comment) Malignancy: Benign lesion - Epidermoid c yst (epidermal inclusion or sebaceous cysts) Wound closure / hemostasis: wound closur e Wound closure: simple Suture size: 4-0 Suture technique: subcuticular Photo taken: no Lesion Number 2 Location on body: posterior trunk Posterior trunk: left periscapular. Size of lesion: 1 cm Size of total margins (both edges): 0 cm Size of lesion + margin: 1 cm Excision depth: subcutaneous Specimen sent for pathology: no (noted i n comment) Malignancy: Benign lesion- Epidermoid cy st (epidermal inclusion or sebaceous cysts) Wound closure / hemostasis: wound closur e Wound closure: simple Suture size: 4-0 Suture material: Monocryl Suture technique: subcuticular Photo taken: no Lesion Number 3 Location on body: posterior trunk Posterior trunk: left periscapular. Size of lesion: 0.5 cm Size of total margins (both edges): 0 cm Size of lesion + margin: 0.5 cm Excision depth: subcutaneous Specimen sent for pathology: no (noted i n comment) Malignancy: Benign lesion- Epidermoid cy st (epidermal inclusion or sebaceous cysts) Wound closure / hemostasis: wound closur e Wound closure: simple Suture size: 4-0 Suture material: Monocryl Photo taken: no CONSENT Consent obtained: written UNIVERSAL PROTOCOL All relevant documentation and testing w ere reviewed and available. All required blood products, implants, devic es and or special equipment were made available as applicable. Pre-proced ure verification was conducted and the correct site was marked if required. A fire risk assessment was done as applicable. The procedural time-out w as conducted prior to performing the procedure and confirmed in a procedu ral pause. PRE-PROCEDURE DETAILS ?? Procedure purpose: therapeutic Appropriate hand hygiene, gown, cap, mas k, protective eyewear, sterile gloves, skin preparation, sterile drape, and strict aseptic technique were utilized as applicable for the procedure .: Yes ?? Site preparation: chlorhexidine SEDATION / ANESTHESIA Anesthesia method: local infiltration Local infiltrate type: lidocaine, with e pinephrine POST-PROCEDURE DETAILS ?? Estimated blood loss: minimal Procedure completed successfully: Yes ?? Complications: No apparent complications ?? Tolerance: well tolerated Follow-up: yes, requested as ordered Karina Herman M.D. PROCEDURE/MINOR SURGICAL ORD ERABLES documented in this encounter Visit Diagnoses Diagnosis Cyst Epidermal - Primary documented in this encounter Care Teams Private Branch Exchange Service Adviser Relationship Specialty Start Date End Date Ebony Patton APRN, M.S.N., R.N. PCP - General 12/19/19 12/01/[address] [place] [phone] documented as of this encounter
--- OUTSIDE RECORDS SUMMARY | 2022-05-24 18:23 | XMS_ITS | Encounter Summary ---
:1945 Author Organization [facility] Address [address] [place] [address] Care Team Providers Name Role Phone Ebony Patton APRN, M.S.N., R.N. Primary Care Provider + Encounter Details Date Type Department Care Team Description 06/08/2020 Hospital Encounter Department of [place], Diabetes Mellitus Type 2 With Diabetic Chronic Kidney Disease Hyperglycemic (HCC); Laboratory Medicine Mei Morgan. Hyperte nsive Heart And Chronic Kidney Disease Without Heart Failure And With Stage 3 (Moderate) Chronic Kidney Disease (HCC) in [place], [place] [address] [place] [address] Social History Tobacco Use Types Packs/Day [...] or relatives? How often do you attend caodaism or More than 4 times per year 06/14/2019 yazidi services? Do you belong to any clubs or Yes 06/14/2019 organizations such as caodaism groups, unions, fraternal or athletic groups, or [...] Sig Dispensed Refills Start Date End Date blood sugar diagnostic Pharmacy to dispense 400 strip 2 (OneTouch Ultra Blue strips that are Test Strip) strips covered by patient's insurance to allow pt [...] 0.3 intramuscularly once. mg/0.3 mL injection syringe FLUTICASONE FUROATE Administer into 0 NASAL nostril(s) as needed. ibuprofen Take 2 tablets by 0 04/14/2017 (for_ADVIL,MOTRIN) 200 mouth every 4 (four) mg tablet hours as needed. insulin syringe-needle 2 Injection by 100 each 8 0 U-100 1 mL 31 gauge x abdominal subcutaneous 01/24 syringe route daily. lancets Pharmacy to dispense 400 each 2 [...] 4 (four) times a day as needed. albuterol sulfate Inhale 2 puffs every 4 1 Inhaler 11 201906/09/2020 (ProAir RespiClick) 90 (four) hours as needed mcg/actuation aerosol for wheezing. powdr breath activated inhaler allopurinol (ZYLOPRIM) TAKE 1 TABLET (100 MG) 180 tablet 2 0 09/20/2019 06/09/2020 100 mg tablet BY MOUTH TWO TIMES A DAY. diphenhydrAMINE Take 25 mg by mouth as 0 04/14/20 17 06/09/2020 (for_BENADRYL) 25 mg needed. tablet fluocinonide (LIDEX) Apply 1 application 20 mL 3 201906/09/2020 0.05 % external topically as needed solution for rash (5-6 x month). gemfibrozil (LOPID) TAKE 1 TABLET (600 MG) 180 tablet 3 08/1106/09/2020 600 mg BY MOUTH TWO TIMES A tabletIndications: DAY. Diabetes Mellitus Type 2 With Diabetic Chronic Kidney Disease Hyperglycemic (HCC) insulin lispro Inject 0.9 mL (90 180 mL 3 10/11/2019 protamin-lispro Units total) under the (HumaLOG Mix skin 2 (two) times a 75-25,U-100,Insuln) day. 100 unit/mL (75-25) injection penvtz-lzafdyir-xwalfb Take 2 capsules by 540 capsule 3 09/1306/10/2020 e (Creon) mouth 3 (three) times 24,000-76,000-120,000 a day. Unit per DR capsuleIndications: Pancreatitis Chronic (HCC) LORazepam (ATIVAN) 1 Take 2 tablets (2 mg 2 tablet 0 05/2906/09/2020 mg tablet total) by mouth once for 1 dose. Take 30 minutes to 1 hour prior to MRI metoprolol tartrate TAKE 1/2 TABLET 90 tablet 3 06/21/2019 06/09/2020 (LOPRESSOR) 25 mg (12.5MG) BY MOUTH TWO tablet TIMES A DAY nitroglycerin Place 1 tablet (0.4 mg 25 tablet 0 12/06/2019 06/09/2020 (NITROSTAT) 0.4 mg SL total) under the tablet tongue every 5 (five) minutes as needed for chest pain. documented as of this encounter Plan of Treatment Not on filedocumented as of this encounter Procedures Procedure Name Priority Date/Time Associated Diagnosis Comme nts POTASSIUM, S/P Routine 06/08/2020 9:55 AM Hypertensive Heart A nd Results for this CDT Chronic Kidney Disease proce dure are in Without Heart Failure the re sults And With Stage 3 section. (Moderate) Chronic Kidney Disease (HCC) HEMOGLOBIN A1C, B Routine 06/08/2020 9:55 AM Diabetes Mellitus Type Results for this CDT 2 With Diabetic procedure ar e in Chronic Kidney Disease the r esults Hyperglycemic (HCC) section. documented in this encounter Results Potassium (06/08/2020 9:55 AM CDT) P athologist Signature Potassium, P 4.7 3.6 - 5.2 06/08/2020 [facility] mmol/L 2:26 PM CDT Specimen Anatomical Collection Method Collection Time Receive d Time (Source) Location / / Volume Laterality Blood (Blood, 06/08/2020 9:55 AM 06/08/20 20 1:04 Venous) CDT PM CDT Cathy Mccoy M.D. LAB BLOOD ADD-ON Performing Organization Address [facility]/ZIP Code Phon e Number [address] [address] [facility] [place] [address] (ABNORMAL) Hemoglobin A1c (06/08/2020 9:55 AM CDT) P athologist Signature Hemoglobin A1c, 6.5 (H) 4.2 - 5.6 06/08/2020 [facility] B % 2:01 PM CDT Comment: Hemoglobin A1c values greater than or eq ual to 6.5 percent are diagnostic for diabetes mellitus. ?? Diagnosis should be confirmed by repeat testing. ??In diabet ic patients, HbA1c goals should be discussed with healthcar e provider. Specimen Anatomical Collection Method Collection Time Receive d Time (Source) Location / / Volume Laterality Blood (Blood, 06/08/2020 9:55 AM 06/08/20 20 1:04 Venous) CDT PM CDT Cathy Mccoy M.D. LAB BLOOD ADD-ON Performing Organization Address City/[facility]/ZIP Code Phon e Number [address] [place], [place] [address] [facility] [place] [address] System [address] documented in this encounter Visit Diagnoses Diagnosis Diabetes Mellitus Type 2 With Diabetic C hronic Kidney Disease Hyperglycemic (HCC) Hypertensive Heart And Chronic Kidney Di sease Without Heart Failure And With Stage 3 (Moderate) Chronic Kidney Disease (HCC) documented in this encounter Care Teams Federal Appellate Clerk Relationship Specialty Start Date End Date Ebony Patton APRN, M.S.N., R.N. PCP - General 12/19/19 12/01/[address] [place] [address] SAKINA Wise [phone] documented as of this encounter
--- OUTSIDE RECORDS SUMMARY | 2022-05-24 18:23 | XMS_ITS | Encounter Summary ---
:1945 Author Organization [facility] Address [address] [place] [address] Care Team Providers Name Role Phone Ebony Patton APRN, M.S.N., R.N. Primary Care Provider + Encounter Details Date Type Department Care Team Description 05/29/2020 Clinical Communication Department of [facility], Gastroenterology in [place], [place] Junior, Ph.D. [address] [address] [place] [address] [phone] Social History Tobacco Use Types Packs/Day Years [...] or relatives? How often do you attend congregational or More than 4 times per year 06/14/2019 oriental orthodox services? Do you belong to any clubs or Yes 06/14/2019 organizations such as congregational groups, unions, fraternal or athletic groups, or [...] this encounter Miscellaneous Notes Telephone Encounter - Cristela Weinstein L.P.N. - 06/01/2020 11:44 AM CDT Spoke with the patient's and notified her that the Ativan Rx had been sent to the pharmacy. Shestated that the pharmacy had already notified them that the Rx was ready to brain picker. She wanted to verify the correct dates/time for MRI and follow up appointment with Dr. Zapata and had no further questions. Telephone Encounter - Cristela Weinstein L.P.N. - 05/29/2020 12:08 PM CDT Patient is scheduled for MRI on 06/09/20. Per last office visit note from 08/15/19: PLAN: 1. - MRI abdomen (Pancreas) to assess chronic pancreatitis and assess if pancreas cancer high rish patient in 03/2020; pt has claustrophobia and may use oral Ativan (1mg/tab) 1-2 tab before MRI exam. Telephone Encounter - Lacie Tafoya - 05/29/2020 11:55 AM CDT Cristela Pt doesn't want Mail order for prescription they want sent to [facility] in [facility] and she said he needs 2 like last time documented in this encounter Plan of Treatment Not on filedocumented as of this encounter Visit Diagnoses Not on filedocumented in this encounter Care Teams Transportation Assistant Relationship Specialty Start Date End Date Ebony Patton APRN, M.S.N., R.N. PCP - General 12/19/19 12/01/[address] [place] [address], [place] [phone] documented as of this encounter
--- OUTSIDE RECORDS SUMMARY | 2022-05-24 18:23 | XMS_ITS | Encounter Summary ---
:1945 Author Organization [facility] Address [address] [place] [address] Care Team Providers Name Role Phone Ebony Patton APRN, M.SPilar., R.N. Primary Care Provider + Reason for Referral Outpatient (Routine) - Closed Specialty Diagnoses / Referred By Contact Referred To Procedures Contact Gastroenterology and Evan Zapata [facility] Hepatology Junior, Ph.D. [address] [place] [phone] Referral ID Status Reason Start Date Expiration Date Visits Requ ested Visits Authorized [id number] Closed 06/10/2020 06/10/2021 1 1 Reason for Visit Reason Comments Follow-up 6 mth Outpatient (Routine) - Closed Specialty Diagnoses / Referred By Contact Referred To Procedures Contact Gastroenterology and Evan Zaapta [facility] Hepatology Junior, Ph.D. [address] [place] [phone] Referral ID Status Reason Start Date Expiration Date Visits Requ ested Visits Authorized [id number] Closed 08/15/2019 08/14/2020 1 1 Encounter Details Date Type Department Care Team Description 06/10/2020 Office Visit Department of [place]enny, Pancreatitis Lacy hronic (HCC) (Primary Dx); Gastroenterology in [place] (HCC) [place], [place] Junior, Ph.D. [address] [facility] [address] [place] [address] [place], [place] [phone] Social History Tobacco Use Types Packs/Day [...] or relatives? How often do you attend yazidism or More than 4 times per year 06/14/2019 restorationist services? Do you belong to any clubs or Yes 06/14/2019 organizations such as yazidism groups, unions, fraternal or athletic groups, or [...] Sign Reading Time Taken Comments Blood Pressure 100/60 06/10/2020 10:06 AM CDT Pulse 64 06/10/2020 10:06 AM CDT Temperature 36.9 ??C (98.4 ??F) 06/10/2020 10:06 AM CDT Respiratory Rate 22 06/10/2020 10:06 AM CDT Oxygen Saturation - - Inhaled Oxygen Concentration - - Weight 109 kg (241 lb 2.9 oz) 06/10/2020 10:06 AM CDT Height 193 cm (6' 3.98) 06/10/2020 10:06 AM CDT Body Mass Index 29.37 06/10/2020 10:06 AM CDT documented in this encounter Patient Instructions Patient InstructionsNannette Preciado L.P.N. - 06/10/2020 10:15 AM CDT Blood work today 1 yr follow up documented in this encounter Progress Notes Evan Zapata M.D., Ph.D. - 06/10/2020 10:15 AM CDT SUBJECTIVE Patient ID: Jorge Chance is a 75 y.o. male who presents for evaluation of Follow-up (6 mth). HPI 75 y/o Male, first seen my clinic 03/2019 as FU of chronic pancreatitis since 2013.?? 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 Hx chronic pancreatitis (burn-out total calcified); ?In use of Creon (2 pills TID) with okay control of BMs with sometimes loose stool and abdominal bloating.??Recently, due to elevated potassium level and frequent loose stool, metformin and lisinoprilwere discontinued and he feels good control BM now and K level stable as well. BW: - 2019 BMI: 31; (113 kgs) - 05/2020 109 KGS, BMI -29.4; MEDs: creon??(2 pills TID), vit E, NITRO, iNSULIN, ALLOPURINOL, LOPID, Metoprolol, albuterol, Ibuprofen prn; allopurinol, ?? FH: denied CRC; mother -brain tumor; uncle some kind of cancer; SMK (-); alcohol (-) ?? - 07/10/2019 Hb 15, MCV 104; WBC 6.0; PLT 178; - 04/2019 folate >20; TSH 3.7; 04/2019 blood smear review - mild macrocytosis; FINAL DIAGNOSIS Peripheral blood smear: Mild macrocytosis with otherwise unremarkable red cells, white cells and platelets. See comment. COMMENT : The differential diagnosis for macrocytosis includes, but is not limited to, nutritional deficiencies, reticulocytosis, toxin/medication effect, alcohol abuse, hypothyroidism, liver disease, as well as a myeloid disorder. ?? - 05/2020 A1C- 6.5; - 11/2019 Cre 1.40; - 03/28/2019 Hb 14.1, MCV 105.7, PLT 172; WBC 6.3; cmp ok but K 6.0 (pt went to ED for care of hyperkalemia);??cre 1.48 ??BUN 34;?LFT wnl; B12 390; ?? - 04/01/2019 Hb 13.3, MCV 107.1; - 03/2019 CEA 4.3 wnl; CA 19-9 ??10 wnl; 03/29/2018 - CBC ok, MCV 104 HIGH - 12/2018 - bun 31, CRE 1.32; SUGAR 139; A1C 5.9 - 03/2018 LFT wnl; CA 19-9 wnl;? 06/09/2020- MR ABDOMEN WITHOUT AND WITH IV CONTRAST ??COMPARISON: 04/03/2019 ??IMPRESSION:?? 1. Improved pancreatic ductal dilatation, now measuring 7.2 mm in greatest diameter compared to 10.2 mm on the study of 04/03/2019. 2. Stable significant pancreatic atrophy. 3. No separable pancreatic mass. FINDINGS: There is stable diffuse pancreatic atrophy. There is persistent dilatation of the proximal pancreatic duct, which has improved in the interim, now measuring 7.2 mm in greatest diameter as compared to 10.2 mm on the prior study. There is no evidence of a separable mass within the pancreatic head. Previously noted pancreatic calcifications are not as well appreciated on this study as on a prior CT scan of 01/29/2016. ?? The liver, gallbladder, spleen, adrenal glands and kidneys are unchanged, including several bilateral nonenhancing renal cysts. ? - 04/03/2019?MR ABDOMEN MRCP WITHOUT AND WITH IV CONTRAST ??COMPARISON: CT 01/29/2016, previous MRI 08/20/2015. ??IMPRESSION: ??1. Persistent diffuse pancreatic ductal dilatation with distal filling defect which may represent obstructing calcified stone given numerous pancreatic calcifications on prior CT. 2. No discrete mass within atrophied pancreatic parenchyma. 3. No biliary ductal dilatation. ?? FINDINGS: Liver normal size and contour. No focal hepatic lesion identified. Spleen, adrenal glands,gallbladder within normal limits. Stable simple appearing cysts within both kidneys.?? Persistent diffuse pancreatic ductal dilatation measuring up to 10 mm. Numerous pancreatic calcifications??better demonstrated on prior CT, which may account for filling defect within distal pancreatic duct best appreciated on coronal image 15 series 10, similar-appearing finding at this location on prior MRI. Persistent diffuse pancreatic atrophy. No biliary ductal dilatation. ??Abdominal aorta normal diameter. ??Visualized bowel normal diameter. No upper abdominal ascites. ??Degenerative findings of the spine. ?? 07/16/2013??EGD? PREOPERATIVE DIAGNOSIS: ??Chronic diarrhea and weight loss. ? POSTOPERATIVE DIAGNOSIS: ??H. Pylori gastritis.? 07/2013 C-scope -??Colonic diverticulosis. ?? MRI/MRCP 08/2015 IMPRESSION: 1. Unchanged 8 x 5 mm distal pancreatic duct stone within the head of the pancreas with dilated mainpancreatic duct proximal to the stone, consistent with chronic pancreatitis. This has been stable since the CT examination 06/20/2013. 2. No evidence for pancreatic mass. 3. No evidence for gallbladder or biliary pathology. 4. Other incidental nonacute findings as described above, stable ? 08/2014 MRCP IMPRESSION: 1. Findings compatible with sequela of chronic pancreatitis with obstructing intraductal calcification measuring 8mm. No discrete pancreatic mass identified. Progressive pancreatic atrophy favored related to chronic ductal obstruction. 2. Diffuse hepatic steatosis.? - 01/2016 CT abdomen/pel?? IMPRESSION: 1. Normal-appearing appendix. 2. No acute intra-abdominal/pelvic pathology. 3. Other stable incidental nonacute findings as described above. ?? OBJECTIVE PHYSICAL EXAM Vital signs: Recorded and reviewed. General: Alert and oriented, no acute distress. Head: Normocephalic, atraumatic. Eyes: Anicteric sclera. Neck: Supple. No jugular venous distention. Cardiac: Regular rate. Normal peripheral perfusion. Lungs: Non-labored respirations. Symmetrical expansion. Abdomen: Soft and nontender with normoactive bowel sounds. Musculoskeletal: Normal range of motion, no deformity. Integumentary: Warm and dry. No characteristic lesions on exposed surfaces. Neurologic: No relevant focal deficits. Psychiatric: Cooperative, appropriate mood and affect. ASSESSMENT / PLAN 1. Improving loose stool and hyperkalemia after discontinued metformin and lisinopril; 2. Chronic (atrophic) pancreatitis (remote alcoholics hx) with calcified and P duct stone 8 mm in last MRCP 2014; clinically, stable, no abdominal pain; on Creon (2 pills with meals three times a day) with well control; MRI abd 03/2019 - diffuse P duct dilation with distal filling defect may representcalcified stone given chronic pancreatic calcification; MRI 05/2020- no pancreas mass, previous dilated P duct decrease in size from 10mm to 7.2mm; 3. DM, CKD cre 1.48; lab 03/28/2019 showed K 6.0 high and sugar 331; LFT wnl; K wnl 05/2020; 4. Hx of H pylori gastritis s/p abx in 2012; hx of colonic diverticulosis; ?? PLAN: 1. CBC, LFT, B12, CEA, CA19-9; 2. May repeat MRI pancreas in 2021; MRI abdomen (Pancreas) to assess chronic pancreatitis ; pt has claustrophobia and may use oral Ativan (1mg/tab) 1-2 tab before MRI exam. 3. ??my office contact info is provided to pt for follow and up and further question or concern later on; informed patient about the availability of future communicating/updating through [place] patient portal; Clinic follow up in 12 months. Answers for HPI/ROS submitted by the patient on 06/07/2020 Fatigue: Yes No eye issues: Yes No ENT issues: Yes No heart issues: Yes No respiratory issues: Yes No GI issues: Yes Back pain/stiffness: Yes No skin issues: Yes Numbness or shooting pain in hands, arms, legs or feet: Yes No mental health issues: Yes No blood/lymph issues: Yes Urgency: Yes Erectile dysfunction: Yes 4. documented in this encounter Plan of Treatment Scheduled Referrals Name Type Priority Associated Order Schedule Diagnoses Gastroenterology and Outpatient Routine Expecte d: Hepatology office visit Referral 05/14 (clinic) (Approximate), Expires: 06/10/2023 documented as of this encounter Results Carbohydrate Antigen 19-9 (CA 19-9) (06/10/2020 10:51 AM CDT) P athologist Signature Carbohydrate Ag 9 <35 U/mL 06/11/2020 [facility] 19-9, S 9:02 AM CDT Comment: ----ADDITIONAL INFORMATION---- The testing method is an immunoenzymatic assay manufactured by [employer] and performed on the [employer] DxI 800. ? Values obtained with different assay met hods or kits may be different and cannot be used inte rchangeably. ? Test results cannot be interpreted as ab solute evidence for the presence or absence of malignant disease. Specimen Anatomical Collection Method Collection Time Receive d Time (Source) Location / / Volume Laterality Blood (Blood, 06/10/2020 10:51 06/11/2020 8:09 Venous) AM CDT AM CDT Evan Zapata M.D., Ph.D. LAB BLOOD ADD-ON Performing Organization Address City/State/ZIP Code Phon e Number [facility] [address] [place] [address] [place] [address] Laboratory Medicine and Pathology [address] [place] CEA (Carcinoembryonic Antigen) (06/10/2020 10:51 AM CDT) [facility] Method Time Signature Carcinoembryonic Ag 4.1 ng/mL 06/10/2020 [facility] (CEA), S 12:05 PM CDT Comment: Biotin has been identified by the [facility] as a potential interfering substance. ??Higher concentr ations of biotin may be found in multivitamins, hair/nail supple ments, and workout supplements. ??If the result does not ma [facility] clinical observations, repeat testing after patient refrains fr om the use of supplements for at least 12 hours. ----REFERENCE VALUE---- Reference values have not been established for patients who are greater than 69 years of age ----ADDITIONAL INFORMATION---- The testing method is an electrochemilum inescence assay manufactured by [employer] and performed on the Sam system. Values obtained with different assay met hods or kits may be different and cannot be used inte rchangeably. Test results cannot be interpreted as ab solute evidence for the presence or absence of malignant disease. Specimen Anatomical Collection Method Collection Time Receive d Time (Source) Location / / Volume Laterality Blood (Blood, 06/10/2020 10:51 06/10/2020 Venous) AM CDT 10:54 AM CDT Evan Zapata M.D., Ph.D. LAB BLOOD ADD-ON Performing Organization Address [facility] Phon e Number [facility]- [address] [place] [address] [place] [address] System in [address] Hepatic Function Panel (06/10/2020 10:51 AM CDT) [facility] gist Method Time Signature Bilirubin, Total, P 0.4 <=1.2 06/10/2020 [facility] mg/dL 11:24 AM CDT Bilirubin, Direct, P <0.2 0.0 - 0.3 06/10/2020 [facility] mg/dL 11:24 AM CDT Aspartate 40 8 - 48 06/10/2020 [facility] Aminotransferase U/L 11:24 AM CDT (AST), P Alanine 34 7 - 55 06/10/2020 [facility] Aminotransferase U/L 11:24 AM CDT (ALT), P Alkaline 89 40 - 129 06/10/2020 [facility] Phosphatase, P U/L 11:24 AM CDT Albumin, P 4.0 3.5 - 5.0 06/10/2020 [facility] g/dL 11:24 AM CDT Protein, Total, P 7.2 6.3 - 7.9 06/10/2020 [facility] g/dL 11:24 AM CDT Specimen Anatomical Collection Method Collection Time Receive d Time (Source) Location / / Volume Laterality Blood (Blood, 06/10/2020 10:51 06/10/2020 Venous) AM CDT 10:54 AM CDT Evan Zapata M.D., Ph.D. LAB BLOOD ADD-ON Performing Organization Address City/[facility] Phon e Number [facility]- [address] [place] [phone] [place] [address] System in [address] (ABNORMAL) CBC with Differential, Blood (06/10/2020 10:51 AM CDT) [facility] gist Method Time Signature Hemoglobin 15.1 13.2 - 06/10/2020 [facility] 16.6 g/dL 10:58 AM CDT Hematocrit 46.8 38.3 - 06/10/2020 [facility] 48.6 % 10:58 AM CDT Erythrocytes 4.39 4.35 - 06/10/2020 [facility] 5.65 10:58 AM CDT x10(12)/L MCV 106.6 (H) 78.2 - 06/10/2020 [facility] 97.9 fL 10:58 AM CDT RBC Distrib Width 12.8 11.8 - 06/10/2020 [facility] 14.5 % 10:58 AM CDT Platelet Count 172 135 - 317 06/10/2020 [facility] x10(9)/L 10:58 AM CDT Leukocytes 5.7 3.4 - 9.6 06/10/2020 [facility] x10(9)/L 10:58 AM CDT Neutrophils 3.19 1.56 - 06/10/2020 [facility] 6.45 10:58 AM CDT x10(9)/L Lymphocytes 1.72 0.95 - 06/10/2020 [facility] 3.07 10:58 AM CDT x10(9)/L Monocytes 0.58 0.26 - 06/10/2020 [facility] 0.81 10:58 AM CDT x10(9)/L Eosinophils 0.16 0.03 - 06/10/2020 [facility] 0.48 10:58 AM CDT x10(9)/L Basophils 0.03 0.01 - 06/10/2020 [facility] 0.08 10:58 AM CDT x10(9)/L Specimen Anatomical Collection Method Collection Time Receive d Time (Source) Location / / Volume Laterality Blood (Blood, 06/10/2020 10:51 06/10/2020 Venous) AM CDT 10:54 AM CDT Evan Zapata M.D., Ph.D. LAB BLOOD ADD-ON Performing Organization Address City/State/ZIP Code Phon e Number [facility]- [address] [place] [phone] [place] [address] System in [address] documented in this encounter Visit Diagnoses Diagnosis Pancreatitis Chronic (HCC) - Primary Cyst Pancreas documented in this encounter Care Teams Burn Table Operator Relationship Specialty Start Date End Date Ebony Patton APRN, M.S.N., R.N. PCP - General 12/19/19 12/01/[address] [place] [address] SAKINA Carson [phone] documented as of this encounter
--- OUTSIDE RECORDS SUMMARY | 2022-05-24 18:23 | XMS_ITS | Encounter Summary ---
:1945 Author Organization [facility] Address [address] [place] [address] Care Team Providers Name Role Phone Ebony Patton APRN, M.S.N., R.N. Primary Care Provider + Reason for Referral Outpatient (Routine) - Closed Specialty Diagnoses / Procedures Referred By Contact Refer red To Contact General Surgery Diagnoses Cyst Epidermal Steffany Jose APRN, [facility] Lacy.N.Rajeev, M.S.N. [address] [place] [phone] Referral ID Status Reason Start Date Expiration Date Visits V isits Requested Authorized [id number] Closed Specialty 01/30/2020 01/29/2021 1 1 Services Required Reason for Visit Reason Comments Cyst on neck and Left shoulder Encounter Details Date Type Department Care Team Description 01/30/2020 Office Visit Department of [facility] Steffany Jose, Cyst Epidermal Medicine, Billie DIEZ C.N.PKamila, (Primary D x) Clinic, in [place].S.NKamila [address] [place] [phone] Social History Tobacco Use Types Packs/Day Years [...] or relatives? How often do you attend evangelical or More than 4 times per year 06/14/2019 judaism services? Do you belong to any clubs or Yes 06/14/2019 organizations such as evangelical groups, unions, fraternal or athletic groups, or [...] Sign Reading Time Taken Comments Blood Pressure 118/64 01/30/2020 7:52 AM CDT Pulse 62 01/30/2020 7:52 AM CDT Temperature 36.2 ??C (97.2 ??F) 01/30/2020 7:52 AM CDT Respiratory Rate 20 01/30/2020 7:52 AM CDT Oxygen Saturation 96% 01/30/2020 7:52 AM CDT room ai r Inhaled Oxygen Concentration - - Weight 109 kg (240 lb 15.4 oz) 01/30/2020 7:52 AM CDT Height - - Body Mass Index 29.34 08/15/2019 1:31 PM NET ARCHITECT documented in this encounter Progress Notes Steffany Jose, CHARY, C.N.P., M.S.N. - 01/30/2020 8:00 AM CDT SUBJECTIVE CHIEF COMPLAINT / REASON FOR VISIT Cyst (on neck and Left shoulder ) HISTORY OF PRESENT ILLNESS Jorge Chance is a 74 y.o. male who presents for evaluation of a bump on his left shoulder which has been present for the last 5 years. He states that over the last few years intermittently it has drained however has not drained in the last year or caused any pain or redness or swelling or other problems. He also notes he has an area on his right neck. It has been there for the last 2 months.He states in the past he has squeezed it and small amount of drainage has come out. He feels this isactually improving not worsening. He states there has been no redness or pain in the area. Overall he is feeling well today. His is with him. The patient's social history, problem list, medications and allergies were reviewed in the electronic medical record. REVIEW OF SYSTEMS A brief review of systems was negative except for that mentioned in the history of present of illness. PAST MEDICAL HISTORY Past Medical History: Diagnosis Date ??? Arrest Cardiac (HCC) ??? Coronary Artery Disease (Unspecified) ??? Diabetes Mellitus NOS ??? History Of Falling ??? Hyperlipidemia ??? Hypertension NOS ??? Infection Helicobacter Pylori ??? Myocardial Infarction Acute (HCC) ??? Pancreatitis Chronic (HCC) ??? Proteinuria ??? Skin Cancer (Primary) NOS CURRENT MEDICATIONS Current Outpatient Medications on File Prior to Visit Medication Sig Dispense Refill ??? albuterol sulfate (ProAir RespiClick) 90 mcg/actuation aerosol powdr breath activated inhaler Inhale 2 puffs every 4 (four) hours as needed for wheezing. 1 Inhaler 11 ??? allopurinol (ZYLOPRIM) 100 mg tablet TAKE 1 TABLET (100 MG) BY MOUTH TWO TIMES A DAY. 180 tablet2 ??? blood sugar diagnostic (OneTouch Ultra Blue [...] 4 (four) hours as needed. ??? insulin syringe-needle U-100 1 mL 31 gauge x 5/16 syringe 2 Injection by abdominal subcutaneous route daily. 100 each 8 ??? lancets Pharmacy to dispense lancets that are covered by patient's insurance to allow patient totest glucose 4 to 5 times a day. ICD 10: E11.22 400 each 2 ??? achezr-sznyktkg-ywfztwq (Creon) 24,000-76,000-120,[address] capsule Take [...] (four) times a day as needed. ??? insulin lispro protamin-lispro (HumaLOG Mix 75-25,U-100,Insuln) 100 unit/mL (75-25) injection Inject 0.9 mL (90 Units total) under the skin 2 (two) times a day. 180 mL 3 No current facility-administered medications on file prior to visit. The patient's social history, medical history, problem list, medications and allergies were reviewedin the electronic medical record. OBJECTIVE VITAL SIGNS BP 118/64 (BP Location: Right arm, Patient Position: Sitting, Cuff Size: Large) Pulse 62 Temp 36.2 ??C Resp 20 Wt 109 kg SpO2 96% Comment: room air BMI 29.34 kg/m?? PHYSICAL EXAMINATION Constitutional General: He is not in acute distress. Appearance: Normal appearance. He is not toxic-appearing. HENT Head: Normocephalic and atraumatic. Eyes Conjunctiva/sclera: Conjunctivae normal. Cardiovascular Rate and Rhythm: Normal rate and regular rhythm. Pulmonary Effort: Pulmonary effort is normal. Breath sounds: Normal breath sounds. Musculoskeletal Normal range of motion. Skin General: Skin is warm and dry. Capillary Refill: Capillary refill takes less than 2 seconds. Comments: Right anterior neck an inch over the clavicle there is a raised, skin colored, cyst whichis not painful to touch and 1 cm by 1 cm in size. There is no surrounding erythema or inflammation. There is a pinpoint area in the center which when decompressed is using a very small amount of yellowdrainage but this is very minimal. Left posterior shoulder has an area which also appears to be a cyst, is skin colored and raised and nonpainful to touch. It is 2 cm x 2 cm in size approximately. There is no drainage, open areas, redness or signs of infection. Neurological Mental Status: He is alert and oriented to person, place, and time. Psychiatric Mood and Affect: Mood normal. Behavior: Behavior normal. Thought Content: Thought content normal. Judgment: Judgment normal. ASSESSMENT / PLAN 1. Cyst Epidermal We discussed that the cyst present on his right neck likely will eventually need to be incised and drained. I did offer to do this today in the clinic. We discussed the cyst on his left shoulder looks to be benign, it has been there for 5 years and at this time does not require removal unless he desires to do so. We discussed the area does not appear to need antibiotics on his right neck at this timeis are no signs of infection however with the small amount of drainage this likely will eventually need to be incised, again he is declining having this done in the clinic today. I did offer a consult to General surgery for removal of both at the same time as well as the cyst capsules. The 1 on the right neck is in a more sensitive area. He prefers to again have this done all at once in [place] with general surgery. If the area on his right neck should worsen prior to his appointment he should return sooner. - General Surgery - General consult (clinic); Future Patient agrees with plan and verbalizes understanding of plan. Patient was provided verbal and written education and has no further questions or concerns. He will follow up as needed or at the next scheduled return visit. He will call the clinic if there are any further questions or concerns in the meantime. documented in this encounter Plan of Treatment Scheduled Referrals Name Type Priority Associated Diagnoses Order S [facility] Surgery - Outpatient Referral Routine Cyst Epidermal E xpected: General consult 01/30/2020 (clinic) (Approximate), Expires: 01/29/2023 documented as of this encounter Visit Diagnoses Diagnosis Cyst Epidermal - Primary documented in this encounter Care Teams Electrical Troubleshooter Relationship Specialty Start Date End Date Ebony Patton APRN, M.S.N., R.N. PCP - General 12/19/19 12/01/[address] [place] [address] [place] [address] documented as of this encounter
--- OUTSIDE RECORDS SUMMARY | 2022-05-24 18:23 | XMS_ITS | Encounter Summary ---
:1945 Author Organization [facility] Address [address] [place] [id number] Care Team Providers Name Role Phone Cathy Mccoy M.D. 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 How often do you attend mandaen or More than 4 times per year 06/14/2019 moravian services? Do you belong to any clubs or Yes 06/14/2019 organizations such as mandaen groups, unions, fraternal or athletic groups, or [...] glucose 4 to 5 times daily. E11.22 DOCOSAHEXANOIC Take 1 capsule by 0 06/13/2013 ACID/EPA (FISH OIL mouth 3 (three) times ORAL) a day. When remembers EPINEPHrine Inject 0.3 mg 0 06/30/2014 (for_EPIPEN) 0.3 intramuscularly once. mg/0.3 mL injection syringe ibuprofen Take 2 tablets by 0 04/14/2017 (for_ADVIL,MOTRIN) 200 mouth every 4 (four) mg tablet hours as needed. lancets Pharmacy to dispense 400 each 2 [...] (four) times a day as needed. albuterol Inhale 2 puffs every 4 0 04/14/2017 (for_PROVENTIL (four) hours as HFA,VENTOLIN HFA) 90 needed. mcg/actuation inhaler allopurinol (ZYLOPRIM) TAKE 1 TABLET (100 MG) 180 tablet 2 0 09/20/2019 06/09/2020 100 mg tablet BY MOUTH TWO TIMES A DAY. diphenhydrAMINE Take 25 mg by mouth as 0 04/14/20 17 06/09/2020 (for_BENADRYL) 25 mg needed. tablet fluocinonide Apply 1 application 20 mL 3 10/18/2017 (for_LIDEX) 0.05 % topically as needed external solution for rash (5-6 x month). gemfibrozil (LOPID) TAKE 1 TABLET (600 MG) 180 tablet 3 08/1106/09/2020 600 mg BY MOUTH TWO TIMES A tabletIndications: DAY. Diabetes Mellitus Type 2 With Diabetic Chronic Kidney Disease Hyperglycemic (HCC) insulin lispro 91 U before breakfast; 80 mL 3 9 12/06/2019 protamin-lispro 86 U before supper. 90 (HumaLOG Mix day supply; lifetime 75-25,U-100,Insuln) 100 unit/mL (75-25) injection insulin lispro Inject 0.9 mL (90 180 mL 3 10/11/2019 protamin-lispro Units total) under the (HumaLOG Mix skin 2 (two) times a 75-25,U-100,Insuln) day. 100 unit/mL (75-25) injection insulin syringe-needle USE FOR INSULIN 100 each 4 05/27/20 19 12/06/2019 U-100 1 mL 31 gauge x INJECTIONS TWO TIMES A 01/24 syringe DAY ketorolac (ACULAR) 0.5 Administer 1 drop into 1 1 12/06/2019 % ophthalmic solution the left eye 2 (two) times a day. zogjes-ixperdmt-tafdly Take 2 capsules by 540 capsule 3 09/1306/10/2020 e (Creon) mouth 3 (three) times 24,000-76,000-120,000 a day. Unit per DR capsuleIndications: Pancreatitis Chronic (HCC) metoprolol tartrate TAKE 1/2 TABLET 90 tablet 3 06/21/2019 06/09/2020 (LOPRESSOR) 25 mg (12.5MG) BY MOUTH TWO tablet TIMES A DAY nitroglycerin Place 1 tablet (0.4 mg 25 tablet 0 12/19/2018 12/06/2019 (NITROSTAT) 0.4 mg SL total) under the tablet tongue every 5 (five) minutes as needed for chest pain. prednisoLONE acetate 1 07/05/201911/10 (PRED FORTE) 1 % ophthalmic suspension documented as of this encounter Plan of Treatment Not on filedocumented as of this encounter Procedures Procedure Name Priority Date/Time Associated Diagnosis Comme nts LIPID PANEL, S Routine 12/04/2019 8:34 Hyperlipidemia Results for this AM CDT procedure are i n the results section. ASPARTATE Routine 12/04/2019 8:34 Hyperlipidemia Results fo r this AMINOTRANSFERASE (AST), AM CDT proc edure are in S/P the results section. HEMOGLOBIN A1C, B Routine 12/04/2019 8:34 Diabetes Mellitus Re sults for this AM CDT Type 2 With Diabetic procedu re are in Chronic Kidney the results Disease Hyperglycemic sectio n. (HCC) BASIC METABOLIC PANEL, Routine 12/04/2019 8:34 Hyperkalemia Re sults for this S/P AM CDT procedure are i n the results section. documented in this encounter Results (ABNORMAL) Hemoglobin A1c (12/04/2019 8:34 AM CDT) P athologist Signature Hemoglobin A1c, 7.5 (H) 4.2 - 5.6 12/04/2019 [facility] B % 1:20 PM CDT Comment: Hemoglobin A1c values greater than or eq ual to 6.5 percent are diagnostic for diabetes mellitus. ?? Diagnosis should be confirmed by repeat testing. ??In diabet ic patients, HbA1c goals should be discussed with healthcar e provider. Specimen Anatomical Collection Method Collection Time Receive d Time (Source) Location / / Volume Laterality Blood (Blood, 12/04/2019 8:34 AM 12/04/19 Venous) CDT 12:34 PM CDT Cathy Mccoy M.D. LAB BLOOD ADD-ON Performing Organization Address City/[facility] Phon e Number [phone] [place] [address] System [address] AST (Aspartate Aminotransferase) (12/04/2019 8:34 AM CDT) [facility] gist Method Time Signature Aspartate 32 8 - 48 12/04/2019 [facility] Aminotransferase U/L 1:13 PM CDT (AST), P Specimen Anatomical Collection Method Collection Time Receive d Time (Source) Location / / Volume Laterality Blood (Blood, 12/04/2019 8:34 AM 12/04/19 20 Venous) CDT 12:34 PM CDT Cathy Mccoy M.D. LAB BLOOD ADD-ON Performing Organization Address City/[facility] Phon e Number [phone] [place] [address] System [address] (ABNORMAL) Lipid Panel (12/04/2019 8:34 AM CDT) P athologist Signature Cholesterol, 121 mg/dL 12/04/2019 [facility] Total 1:13 PM CDT Comment: ----REFERENCE VALUE---- Desirable: < 200 Borderline high: 200 - 239 High: > or = 240 Triglycerides 81 mg/dL 12/04/2019 1:13 PM CDT [facility] Comment: ----REFERENCE VALUE---- Normal: <150 Borderline high: 150-199 High: 200-499 Very high: > or =500 Cholesterol, HDL 28 (L) >=40 mg/dL 12/04/2019 1:13 PM CDT [facility] Calculated LDL 77 mg/dL 12/04/2019 1:13 PM CDT [facility] CA Comment: ----REFERENCE VALUE---- Desirable: <100 Above Desirable: 100-129 Borderline high: 130-159 High: 160-189 Very high: > or =190 Cholesterol, Non-HDL, Calculated 93 mg/dL 020 1:13 PM CDT [facility] Comment: ----REFERENCE VALUE---- Desirable: <130 Above Desirable: 130-159 Borderline high: 160-189 High: 190-219 Very high: > or =220 Specimen Anatomical Collection Method Collection Time Receive d Time (Source) Location / / Volume Laterality Blood (Blood, 12/04/2019 8:34 AM 12/04/19 20 Venous) CDT 12:34 PM CDT Cathy Mccoy M.D. LAB BLOOD ADD-ON Performing Organization Address City/State/ZIP Code Phon e Number [facility]- [address] [place] [phone] [place] [address] [address] (ABNORMAL) Basic Metabolic Panel (12/04/2019 8:34 AM CDT) Analysis Performed At Patho logist Time Signature Potassium, P 4.8 3.6 - 5.2 12/04/2019 [facility] mmol/L 1:13 PM CDT Sodium, P 140 135 - 145 12/04/2019 [facility] mmol/L 1:13 PM CDT Chloride, P 107 98 - 107 12/04/2019 [facility] mmol/L 1:13 PM CDT Bicarbonate, P 20 (L) 22 - 29 12/04/2019 [facility] mmol/L 1:13 PM CDT Anion Gap, P 13 7 - 15 12/04/2019 [facility] 1:13 PM CDT BUN (Blood Urea 35 (H) 8 - 24 12/04/2019 [facility] Nitrogen), P mg/dL 1:13 PM CDT Creatinine 1.40 (H) 0.74 - 12/04/2019 [facility] 1.35 mg/dL 1:13 PM CDT eGFR-Black/Afri 56 (L) >=60 12/04/2019 [facility] can [place] mL/min/BSA 1:13 PM CDT Comment: ----ADDITIONAL INFORMATION---- Estimated GFR calculated using the 2009 CKD_EPI creatinine equation. eGFR Non-Black/ 49 (L) >=60 mL/min/BSA 12/04/2019 1:13 PM CDT [facility] [place] Comment: ----ADDITIONAL INFORMATION---- Estimated GFR calculated using the 2009 CKD_EPI creatinine equation. Calcium, Total, P 9.6 8.8 - 10.2 mg/dL 12/04/2019 1:13 PM CDT [facility] Glucose, P 148 (H) 70 - 140 mg/dL 12/04/2019 1:13 PM CDT [facility] Specimen Anatomical Collection Method Collection Time Receive d Time (Source) Location / / Volume Laterality Blood (Blood, 12/04/2019 8:34 AM 12/04/19 20 Venous) CDT 12:34 PM CDT Cathy Mccoy M.D. LAB BLOOD ADD-ON Performing Organization Address City/State/ZIP Code Phon e Number [facility]- [address] [place] [address] [phone] [place] [address] System in [address] documented in this encounter Visit Diagnoses Diagnosis Hyperkalemia Hyperlipidemia Diabetes Mellitus Type 2 With Diabetic C hronic Kidney Disease Hyperglycemic (HCC) documented in this encounter Care Teams Chemist Internship Relationship Specialty Start Date End Date Cathy Mccoy M.D. PCP - General 02/23/17 12/18/19 documented as of this encounter
--- OUTSIDE RECORDS SUMMARY | 2022-05-24 18:23 | XMS_ITS | Encounter Summary ---
:1945 Author Organization [facility] Address [address] [place] [address] Care Team Providers Name Role Phone Cathy Mccoy M.D. Primary Care Provider Unavailable Reason for Visit Reason Comments Med Refill Encounter Details Date Type Department Care Team Description 08/22/2019 Refill Department of Family Medicine Cathy Mccoy Med Refill in [facility] ynes Pacheco [address] [place] [address] Social History Tobacco Use Types Packs/Day Years [...] More than 4 times per year 06/14/2019 holiness services? Do you belong to any clubs [...] this encounter Miscellaneous Notes Telephone Encounter - Allyssa Taylor - 08/22/2019 3:10 PM CST Patient's spouse notified script was sent to pharmacy by Dr. Noriega. SBAND LAYER Telephone Encounter - Allyssa Taylor - 08/22/2019 1:20 PM CST Gemfibrozil 600mg tablet renewal request received from [employer]. Renewal is currently pending to PCP Dr. Mccoy, who is back in office tomorrow. Patient was notified of the above. He states he only has 1 tablet remaining so he would like refill request addressed today, if possible. He takes medication twice daily. Instructional Supervisor will re-route script toon-call provider, Dr. Noriega. He takes medication for his diabetes. Last office visit was with Dr. Mccoy on 06/14/19 for pre-op. Please do not reply to sender,emails are not monitored. Thank you. If you need a prescription refill please call your pharmacy. Please allow 3 business days for processing. Expert RN: N/A (Med Refill Only) Call Center Template: ??? May we leave a message for you on this phone? yes What can I help you with today? Patient is needing his gemfibrozil refilled. He is completely out. Please send script to [facility] in [facility]. ??? If Medication Refill: o What is [...] you with today? Thank you for calling [facility]. SBAND LAYER documented in this encounter Plan of Treatment Not on filedocumented as of this encounter Visit Diagnoses Diagnosis Diabetes Mellitus Type 2 With Diabetic C hronic Kidney Disease Hyperglycemic (HCC) - Primary documented in this encounter Care Teams Hand Gluer And Slicer Relationship Specialty Start Date End Date Cathy Mccoy M.D. PCP - General 02/23/17 12/18/19 documented as of this encounter
--- OUTSIDE RECORDS SUMMARY | 2022-05-24 18:23 | XMS_ITS | Encounter Summary ---
:1945 Author Organization [facility] Address [address] [place] [address] Care Team Providers Name Role Phone Cathy Mccoy M.D. Primary Care Provider Unavailable Reason for Visit Reason Onset Date Comments Med Refill 08/22/2019 Encounter Details Date Type Department Care Team Description 08/22/2019 Clinical Communication Department of [facility] Diane patterson, Med Refill Medicine in Cathy Hood M.D. [address] [address] Social History Tobacco Use Types [...] or relatives? How often do you attend scientologist or More than 4 times per year 06/14/2019 judaism services? Do you belong to any clubs or Yes 06/14/2019 organizations such as scientologist groups, unions, fraternal or athletic groups, or [...] Telephone Encounter - Allyssa Taylor - 08/22/2019 1:15 PM CST Gemfibrozil 600mg tablet renewal request received from [employer]. Renewal is currently pending to PCP Dr. Mccoy, who is back in office tomorrow. Patient was notified of the above. He states he only has 1 tablet remaining so he would like refill request addressed today, if possible. He takes medication twice daily. Gift Officer will re-route script toon-call provider, Dr. Noriega. RAFT MECHANIC Telephone Encounter - Jenny Perkins - 08/22/2019 1:07 PM CST Please do not reply to [...] is completely out. Please send script to [facility] in [facility]. ??? If Medication Refill: o [...] you with today? Thank you for calling [facility]. RAFT MECHANIC documented in this encounter Plan of Treatment Not on filedocumented as of this encounter Visit Diagnoses Not on filedocumented in this encounter Care Teams Calender Runner Relationship Specialty Start Date End Date Cathy Mccoy M.D. PCP - General 02/23/17 12/18/19 documented as of this encounter
--- OUTSIDE RECORDS SUMMARY | 2022-05-24 18:23 | XMS_ITS | Encounter Summary ---
:1945 Author Organization [facility] Address [address] [place] [address] Care Team Providers Name Role Phone Ebony Patton APRN, M.S.N., R.N. Primary Care Provider + Reason for Visit Reason Comments Medication Question allopurinol Encounter Details Date Type Department Care Team Description 06/12/2020 Clinical Communication Department of [facility] in [place], (allopuri nol) Jose Hood., R.N. [address] [phone] Social History Tobacco Use Types Packs/Day Years [...] or relatives? How often do you attend quaker or More than 4 times per year 06/14/2019 congregational services? Do you belong to any clubs or Yes 06/14/2019 organizations such as quaker groups, unions, fraternal or athletic groups, or [...] Notes Telephone Encounter - Allyssa Taylor - 06/12/2020 4:42 PM CDT Rumper spoke with patient and informed him of Ebony's response. He will plan to continue on allopurinol 100mg po BID. Informed him that the 300mg tablet script has been discontinued and new 100mg po BIDscript sent to pharmacy instead. Patient verbalized understanding. No other concerns at this time. Telephone Encounter - Ebony Patton APRN C.N.P., M.S.N. - 06/12/2020 4:31 PM CDT No I don't know why it was changed, he can stay on the allopurinol 100mg BID, our apologies Thanks Ebony Telephone Encounter - Allyssa Taylor - 06/12/2020 3:58 PM CDT Reviewed patient's chart. He has previously been prescribed allopurinol 100mg po BID. Prescriptions go back to 03/06/2017. Dr. Mccoy had previously prescribed this dose to patient. See medication history below: Start Date End Date allopurinoL (ZYLOPRIM) 300 mg tablet 06/09/20 -- allopurinol (ZYLOPRIM) 100 mg tablet 09/18/19 06/09/20 allopurinol (ZYLOPRIM) 100 mg tablet 02/12/19 01/08/20 allopurinol (ZYLOPRIM) 100 mg tablet 03/06/18 10/23/18 allopurinol (for_ZYLOPRIM) 100 mg tablet 10/18/17 03/06/18 allopurinol (for_ZYLOPRIM) 100 mg tablet 08/31/17 10/18/17 allopurinol (for_ZYLOPRIM) 100 mg tablet 03/06/17 08/31/17 Lab Results Component Value Date URICACID 4.1 01/22/2014 Rumper spoke with patient and spouse on phone. They are wondering why the dose was changed from 100mg po BID to 300mg po daily? Patient reports changing of his dose was not discussed at last office visit. Patient states he did not pickling solution maker the 300mg tablet from pharmacy. Patient states he's been takingthe 100mg po BID dosing for way longer than 2016 (technical proposal writer informed patient/spouse this is the then states so can we have a reason why this was changed and sent to the pharmacy this way? Rumper apologized to patient/spouse for any confusion. Will Telephone Encounter - Ebony Patton APRN, C.N.Ashok., M.S.N. - 06/12/2020 3:06 PM CDT Nursing, please call patient's pharmacy and ensure correct allopurinol dosage, then send me the pended correct dosage. Also, please ask the patient if there are any other med concerns? We apologize, asour lists are not always in sync with the pharmacy and we have to rely on patient's for their dosing, which is not always know if meds are not present. Thanks Ebony Telephone Encounter - Steffany Faith L.PIván - 06/12/2020 1:16 PM CDT Patient had called clinic this AM, technical proposal writer returned call back, and patient and had concerns regarding allopurinol RX. Patient states he takes 100 mg BID and not 300 mg daily. Informed patient will inform Ebony and we will get the correct RX sent to pharmacy for him. Rumper informed patient he will get a call back when this is completed. documented in this encounter Plan of Treatment Not on filedocumented as of this encounter Visit Diagnoses Not on filedocumented in this encounter Care Teams Field Representative/Health Education Relationship Specialty Start Date End Date Ebony Patton APRN, M.S.N., R.N. PCP - General 12/19/19 12/01/[address] [place] [phone] documented as of this encounter
--- OUTSIDE RECORDS SUMMARY | 2022-05-24 18:23 | XMS_ITS | Encounter Summary ---
:1945 Author Organization [facility] Address [address] [place] [address] Care Team Providers Name Role Phone Ebony Patton APRN, M.SPilar., R.N. Primary Care Provider + Reason for Visit Reason Comments Phone Contact f/u cyst excisions Encounter Details Date Type Department Care Team Description 02/12/2020 Documentation Department of General Karina Herman, Phone Contact (f[place]u [place] [address] [phone] Social History Tobacco Use Types Packs/Day Years [...] or relatives? How often do you attend jehovah's witness or More than 4 times per year 06/14/2019 quaker services? Do you belong to any clubs or Yes 06/14/2019 organizations such as jehovah's witness groups, unions, fraternal or athletic groups, or [...] PM CDT documented as of this encounter Progress Notes Marlen Cruz R.N. - 02/12/2020 3:31 PM CDT Pt called clinic stating that he has another cyst he noticed on his right neck. He had 3 cysts removed in clinic by Dr. Herman on 02/10/2020. One on his neck, and two on his left upper back. Pt explained that approx an 1/8 inch below the incision on his Rt neck he has noticed another pimple forming. Ptquestioning if he should come in soon again to have it looked at or wait until the incision on his neck has healed and see if the new spot clears up. Pt denied any drainage or complications to recent incision sites. Senior Software Analyst offered an appt to come in and have site looked at now if he would like, but hecan also wait if it is not bothering him or showing increasing s/s of infection. Pt decided he wouldlike To wait until he heals from recent excisions and if spot is still bothersome then he will call back to make an appt. Pt will continue to monitor other excision sites for any complications as well and call us back for a return visit if needed. documented in this encounter Plan of Treatment Not on filedocumented as of this encounter Visit Diagnoses Not on filedocumented in this encounter Care Teams Shell Sorter Relationship Specialty Start Date End Date Ebony Patton APRN, M.S.N., R.N. PCP - General 12/19/19 12/01/[address] [place] [address] SAKINA Carson [phone] documented as of this encounter
--- OUTSIDE RECORDS SUMMARY | 2022-05-24 18:23 | XMS_ITS | Encounter Summary ---
:1945 Author Organization [facility] Address [address] [place] [address] Care Team Providers Name Role Phone Cathy Mccoy M.D. Primary Care Provider Unavailable Reason for Visit Reason Comments Med Refill Encounter Details Date Type Department Care Team Description 09/18/2019 Refill Department of Family Medicine Cathy Mccoy Med Refill in [facility] ynes [place] [address] [place] [address] Social History Tobacco Use [...] or relatives? How often do you attend samaritan or More than 4 times per year 06/14/2019 lutheran services? Do you belong to any clubs or Yes 06/14/2019 organizations such as samaritan groups, unions, fraternal or athletic groups, or [...] this encounter Miscellaneous Notes Telephone Encounter - Jose Garcia C.M.A. - 09/18/2019 11:52 AM CUPOLA TENDER HELPER Last OV 07/10/19, has appt on 12/06/2019 LA TENDER HELPER documented in this encounter Plan of Treatment Not on filedocumented as of this encounter Visit Diagnoses Not on filedocumented in this encounter Care Teams Community Representative Relationship Specialty Start Date End Date Cathy Mccoy M.D. PCP - General 02/23/17 12/18/19 documented as of this encounter
--- OUTSIDE RECORDS SUMMARY | 2022-05-24 18:23 | XMS_ITS | Encounter Summary ---
:1945 Author Organization [facility] Address [address] [place] [address] Care Team Providers Name Role Phone Ebony Patton APRN, M.SPilar., R.N. Primary Care Provider + Encounter Details Date Type Department Care Team Description 06/11/2020 Clinical Communication Department of [place], Gastroenterology in [place], [place] L.P.N. [address] [facility] [phone] [place] [phone] (Work) [phone] Social History Tobacco Use Types Packs/Day Years [...] More than 4 times per year 06/14/2019 adventism services? Do you belong to any clubs [...] this encounter Miscellaneous Notes Telephone Encounter - Nannette Preciado L.P.N. - 06/11/2020 2:03 PM CDT [id number] documented in this encounter Plan of Treatment Not on filedocumented as of this encounter Visit Diagnoses Not on filedocumented in this encounter Care Teams Rn Charge Relationship Specialty Start Date End Date Ebony Patton APRN, M.S.N., R.N. PCP - General 12/19/19 12/01/[address] [place] [phone] documented as of this encounter
--- OUTSIDE RECORDS SUMMARY | 2022-05-24 18:23 | XMS_ITS | Encounter Summary ---
:1945 Author Organization [facility] Address [address] [place] [address] Care Team Providers Name Role Phone Ebony Patton APRN, M.SPilar., R.N. Primary Care Provider + Encounter Details Date Type Department Care Team Description 06/15/2020 Clinical Communication Department of [place], Gastroenterology in [place], [place] L.P.N. [address] [facility] [phone] [place] [phone] (Work) [phone] Social History Tobacco Use Types Packs/Day Years [...] or relatives? How often do you attend jew or More than 4 times per year 06/14/2019 synagogue services? Do you belong to any clubs or Yes 06/14/2019 organizations such as jew groups, unions, fraternal or athletic groups, or [...] Telephone Encounter - Nannette Preciado L.P.N. - 06/15/2020 3:32 PM CDT Spoke with patient and updated him on the unremarkable results from the liver panel, tumor markers (CEA, CA 19-9) and blood counts. Pt had no quesitons or concerns at that time. Verbalized understanding Telephone Encounter - Nannette Preciado L.P.N. - 06/15/2020 9:09 AM CDT Left a message with patients to call us back. Patients took our number and stated will letpt know documented in this encounter Plan of Treatment Not on filedocumented as of this encounter Visit Diagnoses Not on filedocumented in this encounter Care Teams Kaiawhina Kohanga Reo Relationship Specialty Start Date End Date Ebony Patton APRN, M.S.N., R.N. PCP - General 12/19/19 12/01/[address] [place] [phone] documented as of this encounter
--- OUTSIDE RECORDS SUMMARY | 2022-05-24 18:23 | XMS_ITS | Encounter Summary ---
:1945 Author Organization [facility] Address [address] [place] [address] Care Team Providers Name Role Phone Cathy Mccoy M.D. Primary Care Provider Unavailable Reason for Visit Reason Comments Med Refill Encounter Details Date Type Department Care Team Description 09/06/2019 Refill Department of Family Medicine Cathy Mccoy Med Refill in [facility] ynes [place] [address] [place] [phone] Social History Tobacco Use [...] or relatives? How often do you attend advent or More than 4 times per year 06/14/2019 yazdanism services? Do you belong to any clubs or Yes 06/14/2019 organizations such as advent groups, unions, fraternal or athletic groups, or [...] on filedocumented in this encounter Care Teams Central Services Tech Relationship Specialty Start Date End Date Cathy Mccoy M.D. PCP - General 02/23/17 12/18/19 documented as of this encounter
--- OUTSIDE RECORDS SUMMARY | 2022-05-24 18:23 | XMS_ITS | Encounter Summary ---
:1945 Author Organization [facility] Address [address] [place] [address] Care Team Providers Name Role Phone Cathy Mccoy M.D. Primary Care Provider Unavailable Reason for Visit Reason Comments Rash Appointment Request (Routine) - Closed Specialty Diagnoses / Procedures Referred By Contact Refer red To Contact Family Medicine Referral ID Status Reason Start Date Expiration Date Visits Requ ested Visits Authorized [id number] Closed 11/04/2019 11/03/2020 1 1 Encounter Details Date Type Department Care Team Description 11/04/2019 Office Visit Department of Family Baldomero Mccoy ce (Primary Dx); Medicine in [place] Methicillin Re sistant Staphylococcal Aureus [address] [phone] Social History Tobacco Use Types Packs/Day Years Used Date Smoking Tobacco: Never Smokeless Tobacco: Never Tobacco Cessation: Counseling Given: Yes Alcohol Use Standard Drinks/Week Comments No 0 [...] or relatives? How often do you attend adventist or More than 4 times per year 06/14/2019 christian services? Do you belong to any clubs or Yes 06/14/2019 organizations such as adventist groups, unions, fraternal or athletic groups, or [...] Sign Reading Time Taken Comments Blood Pressure 130/68 11/04/2019 2:38 PM AGING ROOM OPERATOR Pulse 62 11/04/2019 2:38 PM AGING ROOM OPERATOR Temperature 36.5 ??C (97.7 ??F) 11/04/2019 2:38 PM AGING ROOM OPERATOR Respiratory Rate 14 11/04/2019 2:38 PM AGING ROOM OPERATOR Oxygen Saturation - - Inhaled Oxygen Concentration - - Weight 108 kg (238 lb) 11/04/2019 2:38 PM AGING ROOM OPERATOR Height - - Body Mass Index 28.98 08/15/2019 1:31 PM AGING ROOM OPERATOR documented in this encounter Progress Notes Cathy Mccoy M.D. - 11/04/2019 2:45 PM CST SUBJECTIVE CHIEF COMPLAINT/REASON FOR VISIT Rash HISTORY OF PRESENT ILLNESS Jorge Chance is a 74 y.o. male who presents with a rash on the left side of his face. It started on at the tip of his nose and he put triple antibiotic on it. He thought it helped a little but it seemed to be worse 2 days later. He is diabetic and his sugars have been a little bit higher than normal. He denies changes in skin sensation around the rash but he says the left eye feels lisa. REVIEW OF SYSTEMS Review of systems was negative except as noted in HPI. ALLERGIES/CONTRAINDICATIONS Allergies Allergen Reactions ??? Adhesive Tape-Silicones Rash ??? Aspirin Other (see comments) Nosebleed ??? Atorvastatin Other (see comments) Chest pain ??? Bee Venom Protein (Honey Bee) Other (see comments) ??? Clindamycin Other (see comments) ??? Penicillin Shortness of breath Hives CURRENT MEDICATIONS Current Outpatient Medications Medication Sig Dispense Refill ??? albuterol (for_PROVENTIL HFA,VENTOLIN HFA) 90 mcg/actuation inhaler Inhale 2 puffs every 4 (four) hours as needed. ??? allopurinol (ZYLOPRIM) 100 mg tablet TAKE [...] Inject 0.3 mg intramuscularly once. ??? fluocinonide (for_LIDEX) 0.05 % external solution Apply 1 application topically as needed for rash (5-6 x month). 20 mL 3 ??? gemfibrozil (LOPID) 600 mg tablet TAKE 1 TABLET (600 MG) BY MOUTH TWO TIMES A DAY. 180 tablet 3 ??? ibuprofen (for_ADVIL,MOTRIN) 200 mg tablet Take 2 tablets by mouth every 4 (four) hours as needed. ??? insulin lispro protamin-lispro (HumaLOG Mix 75-25,U-100,Insuln) 100 unit/mL (75-25) injection 91U before breakfast; 86 U before supper. 90 day supply; lifetime 80 mL 3 ??? insulin lispro protamin-lispro (HumaLOG Mix 75-25,U-100,Insuln) 100 unit/mL (75-25) injection Inject 0.9 mL (90 Units total) under the skin 2 (two) times a day. 180 mL 3 ??? insulin syringe-needle U-100 1 mL 31 gauge x 5/16 syringe USE FOR INSULIN INJECTIONS TWO TIMES ADAY 100 each 4 ??? ketorolac (ACULAR) 0.5 % ophthalmic solution Administer 1 drop into the left eye 2 (two) times aday. 1 ??? lancets Pharmacy to dispense lancets that are covered by patient's insurance to allow patient totest glucose 4 to 5 times a day. ICD 10: E11.22 400 each 2 ??? ubbkzd-ypdgbbez-vuafein (Creon) 24,000-76,000-120,[address] capsule Take [...] nasal spray as needed for allergies ??? prednisoLONE acetate (PRED FORTE) 1 % ophthalmic suspension 1 ??? SIMETHICONE ORAL 80 mg as needed. ??? sodium chloride 3 % mist Administer 2 sprays into each nostril 4 (four) times a day as needed. ??? cephalexin (KEFLEX) 500 mg capsule Take 1 capsule (500 mg total) by mouth 4 (four) times a day for 7 days. 28 capsule 0 ??? valACYclovir (VALTREX) 1000 mg tablet Take 1 tablet (1,000 mg total) by mouth 3 (three) times a day for 7 days. 21 tablet 0 OBJECTIVE VITAL SIGNS BP 130/68 (BP Location: Right arm, Patient Position: Sitting, Cuff Size: Large) Pulse 62 Temp 36.5 ??C (Temporal) Resp 14 Wt 108 kg BMI 28.98 kg/m?? PHYSICAL EXAMINATION General: The patient is in no apparent distress and is alert and oriented. Mood and affect normal. Patient is very pleasant. Skin: On the tip of his nose there is an area of eschar that is yellow it is about 3 force cm. Underneath the left eye there is an area of swelling and erythema underneath the entire eye. There are 3 open areas in this area of redness that appear white and open. Underneath the large area of redness there are 3 small pink spots that are new according to the patient. ASSESSMENT / PLAN #1 Rash Face Hard to say since there are no out right vesicles, but this appears like it could be zoster. Becausethere is no obvious vesicles I decided to test for zoster as I lifted a area on the eschar of the nose. We also did a bacterial culture and started Keflex in case this is bacterial. Also because of the complaint of Lisa I were going to have him see Ophthalmology. We are also going to start Valtrex 1000 mg 3 times a day so he can be treated if it is zoster. I suspect it is. - Varicella-Zoster Virus PCR; Future; Expected date: 11/04/2019 - Bacterial Culture, Aerobic + Susc; Future; Expected date: 11/04/2019 - Ophthalmology - General consult (clinic); Future; Expected date: 11/04/2019 - Bacterial Culture, Aerobic + Susc - Varicella-Zoster Virus PCR Other orders - cephalexin (KEFLEX) 500 mg capsule; Take 1 capsule (500 mg total) by mouth 4 (four) times a day for 7 days., Starting Mon11/04/2019, Until Mon11/11/2019, Normal - valACYclovir (VALTREX) 1000 mg tablet; Take 1 tablet (1,000 mg total) by mouth 3 (three) times a day for 7 days., Starting Mon11/04/2019, Until Mon11/11/2019, Normal Addendum: Cultures came back positive for varicella zoster and MRSA. He has already been using Valtrex to treat the zoster. We are starting him on doxycycline 100 mg b.i.d. for 10 days and Bactroban nasal ointment. Contacted patient with this information. ADMINISTRATIVE BILLING Total time spent 30 minutes, 25 minutes spent in counseling and coordination of care. G ROOM OPERATOR documented in this encounter Miscellaneous Notes Result Encounter Note - Cathy Mccoy M.D. - 11/06/2019 5:53 PM AGING ROOM OPERATOR Gave results to patient and who is a nurse. The swelling under the left eye is decreasing and the open areas are turning dark. He is not having any pain but he has noticed for 5 tiny vesicles in different places such as the back under the arm and on the buttock. We're going to take off the Keflexa case this is an allergic reaction, but I told him if he continues to see more vesicle like lesionshe should go the emergency room as that could mean he has disseminated herpes zoster. G ROOM OPERATOR documented in this encounter Plan of Treatment Not on filedocumented as of this encounter Procedures Procedure Name Priority Date/Time Associated Diagnosis Comme nts VARICELLA-ZOSTER Routine 11/04/2019 3:32 PM Rash Face Resul ts for this VIRUS PCR, V AGING ROOM OPERATOR procedure are i n the results section. BACTERIAL CULTURE, Routine 11/04/2019 3:32 PM Rash Face Res ults for this AEROBIC + SUSC AGING ROOM OPERATOR procedure are in the results section. documented in this encounter Results (ABNORMAL) Bacterial Culture, Aerobic + Susc (11/04/2019 3:32 PM AGING ROOM OPERATOR) Component Value Ref Test Analysis Performed At [facility] Method Time Signature Bacterial STAPHYLOCOCCUS EPIDERMIDIS 11/07/2019 MK TO Culture, 2+ 9:34 AM AGING ROOM OPERATOR Aerobic + (A) Susc Specimen Anatomical Collection Method Collection Time Receive d Time (Source) Location / / Volume Laterality Swab (Nose) 11/04/2019 3:32 PM 0 AGING ROOM OPERATOR 10:45 PM AGING ROOM OPERATOR Comment: Specimen Source Site: Swab Organism Antibiotic Method Susceptibility Staphylococcus epidermidis Oxacillin SUSCEPTIBILITY, SUZETTE > =4 mcg/mL: Resistant (MCG/ML) Comment: Use oxacillin interpretation to predict results for anti-staphylococcal beta-lac avendano antibiotics (except ceftaroline). Staphylococcus Gentamicin SUSCEPTIBILITY, SUZETTE <=0.5 mcg/mL : epidermidis (MCG/ML) Susceptible Staphylococcus Ciprofloxacin SUSCEPTIBILITY, SUZETTE >=8 mcg/mL: Resistant epidermidis (MCG/ML) Staphylococcus Levofloxacin SUSCEPTIBILITY, SUZETTE >=8 mcg/mL: Resistant epidermidis (MCG/ML) Staphylococcus Moxifloxacin SUSCEPTIBILITY, SUZETTE 1 mcg/mL: Joel sceptible epidermidis (MCG/ML) Staphylococcus Erythromycin SUSCEPTIBILITY, SUZETTE >=8 mcg/mL: Resistant epidermidis (MCG/ML) Staphylococcus Clindamycin SUSCEPTIBILITY, SUZETTE 0.25 mcg/mL: epidermidis (MCG/ML) Susceptible Staphylococcus Linezolid SUSCEPTIBILITY, SUZETTE 1 mcg/mL: Joel sceptible epidermidis (MCG/ML) Staphylococcus Daptomycin SUSCEPTIBILITY, SUZETTE 0.5 mcg/mL: epidermidis (MCG/ML) Susceptible Staphylococcus Vancomycin SUSCEPTIBILITY, SUZETTE 1 mcg/mL: Joel sceptible epidermidis (MCG/ML) Staphylococcus Doxycycline SUSCEPTIBILITY, SUZETTE 4 mcg/mL: Joel sceptible epidermidis (MCG/ML) Staphylococcus Tetracycline SUSCEPTIBILITY, SUZETTE >=16 mcg/mL: epidermidis (MCG/ML) Resistant Staphylococcus Rifampin SUSCEPTIBILITY, SUZETTE <=0.5 mcg/mL : epidermidis (MCG/ML) Susceptible Comment: Rifampin should not be used as monotherapy Staphylococcus Trimethoprim + SUSCEPTIBILITY, SUZETTE <=10 mcg/mL: epidermidis Sulfamethoxazole (MCG/ML) Susceptible Cathy Mccoy M.D. LAB MICROBIOLOGY - GENERAL O CRISTHIAN Performing Organization Address City/[facility]/ZIP Code Phon e Number [facility]- [address] [place] [address] [place] [address] System in [place] [address] [facility] (ABNORMAL) Varicella-Zoster Virus PCR (11/04/2019 3:32 PM AGING ROOM OPERATOR) [facility] Method Time Signature Specimen Swab, Nasal 11/06/2019 DTL Source tip 5:26 PM AGING ROOM OPERATOR Varicella-Zos Positive (A) Negative 11/06/[address] Virus PCR 5:26 PM AGING ROOM OPERATOR Comment: ----ADDITIONAL INFORMATION---- This test was developed and its performa nce characteristics determined by [facility] in a manner consistent with CLIA requirements. This test has not been cleared or approved by the [place] Jennifer d and Drug Administration. Semi-Urgent This is a semi-urgent result [facility] - () [facility] Specimen Anatomical Collection Method Collection Time Receive d Time (Source) Location / / Volume Laterality Varies (Nasal 11/04/2019 3:32 PM 11/05/19 20 tip) AGING ROOM OPERATOR 10:18 PM AGING ROOM OPERATOR Cathy Mccoy M.D. 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 PCP - General 02/23/17 12/18/19 documented as of this encounter
--- OUTSIDE RECORDS SUMMARY | 2022-05-24 18:23 | XMS_ITS | Encounter Summary ---
:1945 Author Organization [facility] Address [address] [place] [address] Care Team Providers Name Role Phone Ebony Patton APRN, M.S.N., R.N. Primary Care Provider + Reason for Visit Reason Comments Consult Encounter Details Date Type Department Care Team Description 03/23/2020 Office Visit Department of General Laurita Herman M.D. Cyst Epidermal Surgery in [place], [address] [place] [address] (Primary Dx) [place], [place] [address] [facility] [id number] [place] [address] [phone] Social History Tobacco Use Types Packs/Day Years [...] or relatives? How often do you attend zoroastrian or More than 4 times per year 06/14/2019 scientology services? Do you belong to any clubs or Yes 06/14/2019 organizations such as zoroastrian groups, unions, fraternal or athletic groups, or [...] Sign Reading Time Taken Comments Blood Pressure 128/60 03/23/2020 1:03 PM CDT Pulse 60 03/23/2020 1:03 PM CDT Temperature 36.1 ??C (97 ??F) 03/23/2020 1:03 PM CDT Respiratory Rate 18 03/23/2020 1:03 PM CDT Oxygen Saturation - - Inhaled Oxygen Concentration - - Weight - - Height - - Body Mass Index - - documented in this encounter Progress Notes Karina Herman M.D. - 03/23/2020 1:30 PM CDT SUBJECTIVE CHIEF COMPLAINT/REASON FOR VISIT Concern for recurrent or new right neck cyst. HISTORY OF PRESENT ILLNESS Jorge Chance is a 75 y.o. man seen in post procedure follow-up. On 02/10/2020, I excised a small cyst from the patient's right neck. I also excise two cysts from the patient's left upper back area. The patient has been concern for several weeks that he either has a new recurrent cyst on the right side. He feels like there are actually two new cysts with a yellowy area of tissue in between. He is concerned because he touches this area every single day when he shaves his face and neck. He denies any pain at the site of his previous incisions. OBJECTIVE VITAL SIGNS BP 128/60 Pulse 60 Temp 36.1 ??C (Temporal) Resp 18 PHYSICAL EXAM In general, the patient is a well-developed well-nourished man in no acute distress. Neck: Examination of the incision at the base of his right neck, that is anteriorly located, shows that his incision is healing nicely. He has a little bit of skin thickening at each end of the incision and this turns out to be the area where he thinks he has recurrent or new cyst. I explained to the patient that this is actually still his incision healing an adult take several months for the incision to completely soften out and feel normal again. Reassurance is provided. Back: Examination of the two incisions at the left upper back area shows that these also have thickened healing tissue underneath these also. The patient does admit he does not feel these areas on a regular basis. ASSESSMENT / PLAN Mr. Chance is 75 y.o. man status post an excision of a right neck cyst and two left upper back cyst. I had a discussion with the patient and his that he does not have new recurrent cyst at his incision site on his right neck. This is simply this healing process still occurring. I have encouraged him to place a little bit a lotion on the incisions a couple of times a day for at least the next few months. Reassurance is provided. There is nothing to re-excise. I will see the patient back on a p.r.n. basis but if he has further concerns or problems he is encouraged to call my office. Answers for HPI/ROS submitted by the patient [...] Primary documented in this encounter Care Teams Undercoat Sprayer Relationship Specialty Start Date End Date Ebony Patton APRN, M.S.N., R.N. PCP - General 12/19/19 12/01/[address] [place] [address] SAKINA Carson [phone] documented as of this encounter
--- OUTSIDE RECORDS SUMMARY | 2022-05-24 18:23 | XMS_ITS | Encounter Summary ---
:1945 Author Organization [facility] Address [address] [place] [address] Care Team Providers Name Role Phone Cathy Mccoy M.D. Primary Care Provider Unavailable Reason for Referral Outpatient (Routine) - Closed Specialty Diagnoses / Procedures Referred By Contact Refer red To Contact Family Cathy Crook M.D. [address] [address] Referral ID Status Reason Start Date Expiration Date Visits Requ ested Visits Authorized [id number] Closed 12/06/2019 12/05/2020 1 1 Reason for Visit Reason Comments Follow-up 6 month diabetic- labs prior Dental Injury Teeth breaking down. Outpatient (Routine) - Closed Specialty Diagnoses / Procedures Referred By Contact Refer red To Contact Family Cathy Crook M.D. 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 How often do you attend lutheran or More than 4 times per year 06/14/2019 church services? Do you belong to any clubs or Yes 06/14/2019 organizations such as lutheran groups, unions, fraternal or athletic groups, or [...] documented as of this encounter Progress Notes Cathy Mccoy M.D. - 12/06/2019 9:45 AM CDT SUBJECTIVE CHIEF COMPLAINT/REASON FOR VISIT Follow-up (6 month diabetic- labs prior) and Dental Injury (Teeth breaking down.) HISTORY OF PRESENT ILLNESS Jorge Chance is a 74 y.o. male who presents for diabetic check. He has already looked at his labs and of concern was his kidney function. Creatinine was 1.4 and BUN was 35. I told him he needsto drink more fluids as his GFR was 49. His microalbumin was 63 and previously 95 so that has improved. Hemoglobin A1c was 7.5 and previously it was 7.4. Lipids were great and AST was normal. He is concerned about his potassium because it was high before. It is now in the normal range. He needed meds refilled plus diabetic insulin products such as needles and testing strips. He just had zoster a couple months ago and he was wanting about the a zoster shot but advised that this is should probably wait until after the covoid-19 virus is decreased. He also says that his teeth are breaking down and he has a dentist that he is following with but last talked in September. They wanted to pull his teeth andgiven dentures however I told him I was not sure that that would happen. This conversation came up when we were talking about giving him aspirin but he can't take that because it causes nosebleeds for him. I advised him to talk to his dentist to see if anything was actually going to happen any time soon. REVIEW OF SYSTEMS See pertinent findings noted above in the History of Present Illness. MEDICAL HISTORY Patient Active Problem List Diagnosis ??? Family History Coronary Artery Disease ??? 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 Pancreatitis Chronic (HCC) ??? Coronary Artery Disease (Unspecified) ??? Diabetes Mellitus Type 2 With Diabetic Chronic Kidney Disease Hyperglycemic (HCC) ??? Arrest Cardiac (HCC) ??? Myocardial Infarction Acute (HCC) ??? Coronary Stent Status Post ??? Gout ??? Infection Helicobacter Pylori ??? Hyperlipidemia ??? Proteinuria ??? Skin Cancer (Primary) NOS ??? History Of Falling ??? Pain Leg Left SURGICAL HISTORY Past Surgical History: Procedure Laterality Date ??? MOUTH SURGERY ??? OSTECTOMY OF CALCANEUS FOR SPUR N/A 02/23/2007 Excision of calcaneal spur ??? PHACOEMULSIFICATION CATARACT WITH INTRAOCULAR LENS IMPLANTATION Right 07/16/2019 Procedure: PHACOEMULSIFICATION CATARACT WITH INTRAOCULAR LENS IMPLANTATION; Surgeon: Bouchra Ta M.D.; Location: [facility] OR ??? PHACOEMULSIFICATION CATARACT WITH INTRAOCULAR LENS IMPLANTATION Left 07/30/2019 Procedure: PHACOEMULSIFICATION CATARACT WITH INTRAOCULAR LENS IMPLANTATION; Surgeon: Bouchra Ta M.D.; Location: [facility] OR ??? PLACEMENT OF STENT IN CARDIAC CONDUIT 2005 FAMILY HISTORY Family History Problem Relation Age of Onset ??? Cataracts Brother ??? Diabetes Brother ??? Brain Tumor Mother ??? Diabetes Brother ??? Cataracts Brother ??? Coronary artery disease Brother ??? Pacemaker care Brother ??? Stroke Brother ??? Diabetes Sister ??? ORQUIDEA disease Sister ??? Diabetes Brother ??? Cataracts Brother ??? Glaucoma Brother ??? Urolithiasis Brother ??? Diabetes Brother SOCIAL HISTORY Social History Tobacco Use ??? Smoking status: Never Smoker ??? Smokeless tobacco: Never Used Substance Use Topics ??? Alcohol use: No Frequency: Monthly or less Drinks per session: 1 or 2 Binge frequency: Never ??? Drug use: No ALLERGIES/CONTRAINDICATIONS Allergies Allergen Reactions ??? Adhesive Tape-Silicones Rash ??? Aspirin Other (see comments) Nosebleed ??? Atorvastatin Other (see comments) Chest pain ??? Bee Venom Protein (Honey Bee) Other (see comments) ??? Clindamycin Other (see comments) ??? Penicillin Shortness of breath Hives CURRENT MEDICATIONS Current Outpatient Medications Medication Sig Dispense Refill ??? allopurinol (ZYLOPRIM) 100 mg tablet TAKE 1 TABLET (100 MG) BY MOUTH TWO TIMES A DAY. 180 tablet2 ??? blood sugar diagnostic (Practice Fusionuch Ultra Blue Test Strip) strips Pharmacy to [...] ICD 10: E11.22 400 each 2 ??? iolwtc-ixdihwgv-twxleij (Creon) 24,000-76,000-120,[address] capsule Take 2 capsules by mouth 3 (three) times a day. 540 capsule 3 ??? metoprolol tartrate (LOPRESSOR) 25 mg tablet TAKE 1/2 TABLET (12.5MG) BY MOUTH TWO TIMES A DAY 90 tablet 3 ??? phenylephrine (for_NEO-SYNEPHRINE) 0.5 % nasal spray phenylephrine 0.5% nasal spray as needed for allergies ??? SIMETHICONE ORAL 80 mg as needed. ??? albuterol sulfate (ProAir RespiClick) 90 mcg/actuation aerosol powdr breath activated inhaler Inhale 2 puffs every 4 (four) hours as needed for wheezing. 1 Inhaler 11 ??? nitroglycerin (NITROSTAT) 0.[address] 1 tablet (0.4 mg total) under the tongue every 5 (five) minutes as needed for chest pain. 25 tablet 0 ??? sodium chloride 3 % mist Administer 2 sprays into each nostril 4 (four) times a day as needed. OBJECTIVE VITAL SIGNS There were no vitals taken for this visit. PHYSICAL EXAMINATION No exam because this is a telephone visit due to suleiman-19. Did let him know that this would be billed as if it was tvzz-qy-yqmc. DIAGNOSTICS Recent Results (from the past 72 hour(s)) Basic Metabolic Panel Collection Time: 12/04/19 8:34 AM Result Value Potassium, P 4.8 Sodium, P 140 Chloride, P 107 Bicarbonate, P 20 (L) Anion Gap, P 13 BUN, P 35 (H) Creatinine, P 1.40 (H) eGFR Black 56 (L) eGFR Non-Black 49 (L) Calcium, Total, P 9.6 Glucose, P 148 (H) Lipid Panel Collection Time: 12/04/19 8:34 AM Result Value Cholesterol, Total, P 121 Triglycerides, Fasting, P 81 Cholesterol, HDL, P 28 (L) Calculated LDL 77 Non HDL Cholesterol 93 AST (Aspartate Aminotransferase) Collection Time: 12/04/19 8:34 AM Result Value Aspartate Aminotransferase (AST), P 32 Hemoglobin A1c Collection Time: 12/04/19 8:34 AM Result Value Hemoglobin A1c, B 7.5 (H) Albumin, Random, Urine Collection Time: 12/04/19 8:42 AM Result Value Microalbumin 63.0 Creatinine 92 Albumin/Creatinine Ratio 68 (H) ASSESSMENT / PLAN #1 Diabetes Mellitus Type 2 With Diabetic Chronic Kidney Disease Hyperglycemic (HCC) Will check a hemoglobin A1c and set up appointment for 6 months. This will be with another provider due to my half-way. His diabetes is fairly stable although it should be a little lower than it is. He is going to drink more fluid because of his kidney function. Refilled insulin syringes. 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 - Potassium; Future; Expected date: 06/07/2020 #3 Hyperlipidemia Lipid was very good and he should have that checked in a year. Other orders - Family Medicine office visit (clinic) - albuterol sulfate (ProAir RespiClick) 90 mcg/actuation aerosol powdr breath activated inhaler; Inhale 2 puffs every 4 (four) hours as needed for wheezing., Starting Mon12/06/2019, Normal - fluocinonide (LIDEX) 0.05 % external solution; Apply 1 application topically as needed for rash (5-6 x month)., Starting Mon12/06/2019, Normal - insulin syringe-needle U-100 1 mL 31 gauge x 5/16 syringe; 2 Injection by abdominal subcutaneous route daily., Starting Mon12/06/2019, Until Mon12/05/2020, Normal - nitroglycerin (NITROSTAT) 0.4 mg SL tablet; Place 1 tablet (0.4 mg total) under the tongue every 5(five) minutes as needed for chest pain., Starting Mon12/06/2019, Normal - Family Medicine office visit (clinic); Future; Expected date: 06/07/2020 ADMINISTRATIVE BILLING: Total time spent 44 minutes, 44 minutes spent in counseling and coordination of care. documented in this encounter Plan of Treatment Scheduled Referrals Name Type Priority Associated Diagnoses Order S chito Family Medicine Outpatient Referral Routine Expec ann: office visit 06/07/2020 (clinic) (Approximate), Expires: 12/05/2022 documented as of this encounter Results Potassium (06/08/2020 9:55 AM CDT) athologist Signature Potassium, P 4.7 3.6 - 5.2 06/08/2020 [facility] mmol/L 2:26 PM CDT Specimen Anatomical Collection Method Collection Time Receive d Time (Source) Location / / Volume Laterality Blood (Blood, 06/08/2020 9:55 AM 06/08/20 20 1:04 Venous) CDT PM CDT Cathy Mccoy M.D. LAB BLOOD ADD-ON Performing Organization Address [facility] Phon e Number [address] [phone] [facility] [place] [address] [address] (ABNORMAL) Hemoglobin A1c (06/08/2020 9:55 AM CDT) athologist Signature Hemoglobin A1c, 6.5 (H) 4.2 [...] M.D. LAB BLOOD ADD-ON Performing Organization Address [facility] Phon e Number [phone] [facility] [place] [address] System in [address] documented in this encounter Visit Diagnoses Diagnosis Diabetes Mellitus Type 2 With Diabetic C hronic Kidney Disease Hyperglycemic (HCC) - Primary Hypertensive Heart And Chronic Kidney Di sease Without Heart Failure And With Stage 3 (Moderate) Chronic Kidney Disease (HCC) Hyperlipidemia documented in this encounter Care Teams Urban Renewal Manager Relationship Specialty Start Date End Date Cathy Mccoy M.D. PCP - General 02/23/17 12/18/19 documented as of this encounter
--- OUTSIDE RECORDS SUMMARY | 2022-05-24 18:23 | XMS_ITS | Encounter Summary ---
:1945 Author Organization [facility] Address [address] [place] [address] Care Team Providers Name Role Phone Ebony Patton APRN, M.S.N., R.N. Primary Care Provider + Encounter Details Date Type Department Care Team Description 06/10/2020 Hospital Encounter Department of [place], Pancreat itis Chronic (HCC); Laboratory Medicine, [facility], Cyst Pa ncreas (HCC) Specialty Clinic, in [place] Ph.D. [address] [phone] Social History Tobacco Use Types Packs/Day [...] or relatives? How often do you attend jainism or More than 4 times per year 06/14/2019 muslim services? Do you belong to any clubs or Yes 06/14/2019 organizations such as jainism groups, unions, fraternal or athletic groups, or [...] 4 (four) times a day as needed. kjvvlk-bksrwfkj-resvl Take 2 capsules by 540 capsule 3 06/1006/10/2021 se (Creon) mouth 3 (three) times 24,000-76,000-120,000 a day. Unit per DR capsuleIndications: Pancreatitis Chronic (HCC) allopurinoL Take 1 tablet (300 mg 90 tablet 3 06/09/2020 (ZYLOPRIM) 300 mg total) by mouth daily. tablet metoprolol tartrate Take 0.5 tablets (12.5 90 tablet 3 05/1310/15/2020 (LOPRESSOR) 25 mg mg total) by mouth 2 tablet (two) times a day. documented as of this encounter Plan of Treatment Not on filedocumented as of this encounter Procedures Procedure Name Priority Date/Time Associated Comments Diagnosis HEPATIC FUNCTION PANEL, Routine 06/10/2020 10:51 Pancreatitis Results for this S AM CDT Chronic (HCC) procedure are in Cyst Pancreas (HCC) the resu lts section. CARBOHYDRATE AG 19-9 (CA Routine 06/10/2020 10:51 Pancreatitis Results for this 19-9), S AM CDT Chronic (HCC) procedure are in Cyst Pancreas (HCC) the resu lts section. CBC WITH DIFFERENTIAL, B Routine 06/10/2020 10:51 Pancreatitis Results for this AM CDT Chronic (HCC) procedure are in Cyst Pancreas (HCC) the resu lts section. CARCINOEMBRYONIC AG Routine 06/10/2020 10:51 Pancreatitis Resu lts for this (CEA), S AM CDT Chronic (HCC) procedure are in Cyst Pancreas (HCC) the resu lts section. documented in this encounter Results Carbohydrate Antigen 19-9 (CA 19-9) (06/10/2020 10:51 AM CDT) P athologist Signature Carbohydrate Ag 9 <35 U/mL 06/11/2020 [facility] 19-9, S 9:02 AM CDT Comment: ----ADDITIONAL INFORMATION---- The testing method is an immunoenzymatic assay manufactured by [employer] and performed on the Traansmission DxI 800. ? Values obtained with different [...] Organization Address City/State/ZIP Code Phon e Number [facility] [address] [place] [address] [facility] [place] [address] Laboratory Medicine and Pathology [address] [place] CEA (Carcinoembryonic Antigen) (06/10/2020 10:51 AM CDT) Patholo gist Method Time Signature Carcinoembryonic Ag 4.1 ng/mL 06/10/2020 [facility] (CEA), S 12:05 PM CDT Comment: Biotin has been identified by the [facility]phy [facility]ney as a potential interfering substance. ??Higher concentr ations of biotin may be found in multivitamins, hair/nail supple ments, and workout supplements. ??If the result does not ma [facility] clinical observations, repeat testing after patient refrains fr om the use of supplements for at least 12 hours. ----REFERENCE VALUE---- Reference values have not been established for patients who are greater than 69 years of age ----ADDITIONAL INFORMATION---- The testing method is an electrochemilum inescence assay manufactured by [employer] and performed on the Sam system. [...] Ph.D. LAB BLOOD ADD-ON Performing Organization Address City/[facility] Phon e Number [facility]- [address] [place] [phone] [place] [address] System [address] Hepatic Function Panel (06/10/2020 10:51 AM CDT) [facility] Method Time Signature Bilirubin, Total, P 0.4 [...] Ph.D. LAB BLOOD ADD-ON Performing Organization Address City/[facility] Code Phon e Number [facility]- [address] [place] [phone] [place] [address] (ABNORMAL) CBC with Differential, Blood (06/10/2020 10:51 AM CDT) Patholo gist Method Time Signature Hemoglobin 15.1 13.2 [...] Organization Address City/State/ZIP Code Phon e Number [facility]- [address] [place] [phone] [place] [address] [address] documented in this encounter Visit Diagnoses Diagnosis Pancreatitis Chronic (HCC) Cyst Pancreas documented in this encounter Care Teams Barge Pilot Relationship Specialty Start Date End Date Ebony Patton APRN, M.S.N., R.N. PCP - General 12/19/19 12/01/[address] [place] [address] SAKINA Wise [phone] documented as of this encounter
--- OUTSIDE RECORDS SUMMARY | 2022-05-24 18:23 | XMS_ITS | Encounter Summary ---
:1945 Author Organization [facility] Address [address] [place] [address] Care Team Providers Name Role Phone Ebony Patton APRN, M.S.N., R.N. Primary Care Provider + Reason for Visit Reason Comments Follow-up 6 month- labs prior- diabeti c shoes Outpatient (Routine) - Closed Specialty Diagnoses / Procedures Referred By Contact Refer red To Contact Family Medicine Cathy Mccoy M.D. [facility] [address] [place] [phone] Referral ID Status Reason Start Date Expiration Date Visits Requ ested Visits Authorized [id number] Closed 12/06/2019 12/05/2020 1 1 Encounter Details Date Type Department Care Team Description 06/09/2020 Office Visit Department of Family Parisa Patton History Of Other Malignant Neoplasm Of Skin (Primary Dx); Medicine in [place], Family History Coronary Artery Disease; [facility] Sanjuana, R.N. Hypertensive Heart And Chronic Kidney Di seas Without Heart Failure And With Stage 3 (Moderate) Chronic Kidney Disease (HCC); [address] [place] [address] Coronary Artery Disease Without Angina P ectoris; [place], [place] Hyperlipidemi a; [id number] Gout; [phone] Diabetes [facility] Type 2 With Diabetic Chronic Kidney Disease Hyperglycemic (HCC); (Work) Pancreatitis Chronic (HCC); [phone] Macrocytosis; (Fax) Diabetes [facility] Type 2 With Diabetic Neuropathy (HCC); Dermatitis; Other Allergic Rhinitis Social History Tobacco Use Types Packs/Day Years Used Date Smoking Tobacco: Never Smokeless Tobacco: Never Tobacco Cessation: Counseling Given: No Alcohol Use Standard Drinks/Week Comments No 0 [...] or relatives? How often do you attend synagogue or More than 4 times per year 06/14/2019 sikhism services? Do you belong to any clubs or Yes 06/14/2019 organizations such as synagogue groups, unions, fraternal or athletic groups, or [...] for the very basics like Not mayra rojas hard 06/14/2019 food, housing, medical care, and [...] Sign Reading Time Taken Comments Blood Pressure 116/66 06/09/2020 10:50 AM CDT Pulse 64 06/09/2020 10:50 AM CDT Temperature 36.1 ??C (97 ??F) 06/09/2020 10:50 AM CDT Respiratory Rate 18 06/09/2020 10:50 AM CDT Oxygen Saturation - - Inhaled Oxygen Concentration - - Weight 110 kg (241 lb 10 oz) 06/09/2020 10:50 AM CDT Height - - Body Mass Index 29.42 02/10/2020 8:32 AM CDT documented in this encounter Progress Notes Ebony Patton, [facility], C.N.P., M.S.N. - 06/09/2020 11:00 AM CDT SUBJECTIVE CHIEF COMPLAINT/REASON FOR VISIT Chief Complaint Patient presents with ??? Follow-up 6 month- labs prior- diabetic shoes HISTORY OF PRESENT ILLNESS Jorge Chance is a 75 y.o. male who presents to the clinic today for an establish care, diabetes visit. He presents with his Clara. He has a medical history positive for diabetes mellitus type 2, chronic pancreatitis, last visit with GI was in March of 2019, history of H pylori gastritis in 2012, hypertensive heart and chronic kidney disease without heart failure, history of coronary artery disease with out of hospital cardiac arrest in 2005 secondary to LAD stenosis with anterior IL, hyperlipidemia, and gout. Recently he got dentures, he is not sure if he likes them at this time. He isstill adapting. His last colonoscopy was in 2012 is due for repeat 2022. He offers no additional concerns today. He also has seasonal allergies in which he uses an albuterolinhaler for intermittently and scalp dermatitis in which he uses lidex wash intermittently PRN with flares. CURRENT MEDICATIONS Current Outpatient Medications Medication Sig Dispense Refill ??? albuterol sulfate (ProAir RespiClick) 90 mcg/actuation aerosol powdr breath activated inhaler Inhale 2 puffs every 4 (four) hours as needed for wheezing. 1 Inhaler 11 ??? blood sugar diagnostic (OneTouch Ultra Blue Test Strip) strips Pharmacy to dispense strips that are covered by patient's insurance to allow pt to test blood glucose 4 to 5 times daily. E11.22 400 strip 2 ??? chlorhexidine (PERIDEX) 0.12 % mouthwash ??? DOCOSAHEXANOIC ACID/EPA (FISH OIL ORAL) Take 1 capsule by mouth 3 (three) times a day. When remembers ??? EPINEPHrine (for_EPIPEN) 0.3 mg/0.3 mL injection syringe Inject 0.3 mg intramuscularly once. ??? fluocinonide (LIDEX) 0.05 % external solution Apply 1 application topically as needed for rash (5-6 x month). 20 mL 3 ??? FLUTICASONE FUROATE NASAL Administer into affected nostril(s). ??? insulin lispro protamin-lispro (HumaLOG Mix 75-25,U-100,Insuln) [...] ICD 10: E11.22 400 each 2 ??? khidvz-mwgrioom-qpeniyv (Creon) 24,000-76,000-120,[address] capsule Take 2 capsules by mouth 3 (three) times a day. 540 capsule 3 ??? phenylephrine (for_NEO-SYNEPHRINE) 0.5 % nasal spray phenylephrine 0.5% nasal spray as needed for allergies ??? SIMETHICONE ORAL 80 mg as needed. ??? sodium chloride 3 % mist Administer 2 sprays into each nostril 4 (four) times a day as needed. ??? allopurinoL (ZYLOPRIM) 300 mg tablet Take 1 tablet (300 mg total) by mouth daily. 90 tablet 3 ??? ibuprofen (for_ADVIL,MOTRIN) 200 mg tablet Take 2 tablets by mouth every 4 (four) hours as needed. ??? metoprolol tartrate (LOPRESSOR) 25 mg tablet Take 0.5 tablets (12.5 mg total) by mouth 2 (two) times a day. 90 tablet 3 No current facility-administered medications for this visit. ALLERGIES/CONTRAINDICATIONS Allergies Allergen Reactions ??? Adhesive Tape-Silicones Rash ??? Aspirin Other (see comments) Nosebleed ??? Atorvastatin Other (see comments) Chest pain ??? Bee Venom Protein (Honey Bee) Other (see comments) ??? Clindamycin Other (see comments) ??? Lisinopril Other (see comments) Elevated potassium ??? Penicillin Shortness of breath Hives REVIEW [...] LENS IMPLANTATION; Surgeon: Bouchra Ta M.D.; Location: [facility] OR ??? PHACOEMULSIFICATION CATARACT WITH INTRAOCULAR LENS IMPLANTATION Left 07/30/2019 Procedure: PHACOEMULSIFICATION CATARACT WITH INTRAOCULAR LENS IMPLANTATION; Surgeon: Bouchra Ta M.D.; Location: [facility] OR ??? PLACEMENT OF STENT IN CARDIAC CONDUIT 2005 OBJECTIVE VITAL SIGNS BP 116/66 (BP Location: Right arm, Patient Position: Sitting, Cuff Size: Large) Pulse 64 Temp 36.1 ??C (Temporal) Resp 18 Wt 110 kg BMI 29.42 kg/m?? PHYSICAL EXAMINATION General: Alert male in no acute distress, nontoxic in appearance, well dressed, normal hygiene. HEENT: Head normocephalic, atraumatic, pupils equal round react to light, EOM intact. Neck: Supple. No lymphadenopathy. Cardiovascular: Regular rate, rhythm, S1, S2. No murmur. No edema. Respiratory: Lungs clear to auscultation in the anterior and posterior chest, easy Respirations. Nonlabored breathing. Neurologic: Alert, oriented, steady gait. Extremities: Warm, pink, dry. Significantly poor peripheral known sensation. Failed monofilament testing bilaterally. 2+ pedal pulses bilaterally. DIAGNOSTICS: Hemoglobin A1c is 6.5 Potassium is 4.7 ASSESSMENT / PLAN #1 Family History Coronary Artery Disease #2 Hypertensive Heart And Chronic Kidney Disease Without Heart Failure And With Stage 3 (Moderate) Chronic Kidney Disease (HCC) #3 Coronary Artery Disease Without Angina Pectoris #4 Hyperlipidemia -patient had an out of hospital cardiac arrest in 2005, with stenting placed to the LAD, anterior IL. His last visit with Cardiology was over 10 years ago. He is on risk factor modification with statinmedication, aspirin therapy, and blood pressure management with metoprolol 12.5 mg twice daily. No anginal symptoms today. Cholesterol profile is due for follow-up in 6 months. Patient is not on FLORA-inhibitor given hyperkalemia. Recommend a low-fat, low-cholesterol diet. Renal functions in November of 2019 revealed evidence of CKD stage 3. GFR was 56. Creatinine was 1.4. Recommend avoidance of NSAIDs. #5 Gout -stable on allopurinol, no recent gouty flares. Uric acid pending in 6 months. #6 Diabetes Mellitus Type 2 With Diabetic Chronic Kidney Disease Hyperglycemic (HCC) with severe polyneuropathy - DME Lower limb orthosis (ankle, foot, hip, knee); - DME Medical Justification: Lower limb devices (ankle, foot, knee, shoe) - Lipid Panel; Future; Expected date: 12/07/2020 - Albumin, Random, Urine; Future; Expected date: 12/07/2020 - CBC with Differential, Blood; Future; Expected date: 12/07/2020 -hemoglobin A1c is stable at 6.5. No changes made to diabetes medication. Recommend he continue on Humalog mix 82 units twice daily. Prescription for diabetic shoes given today. Return visit planned in6 months, with A1c, urine microalbumin, BMP, and lipid panel. Currently not on metformin given diarrheal issues. Recommend daily foot checks given his significant poor sensation distally. #7 Pancreatitis Chronic (HCC) -following with GI, no longer on metformin given some diarrheal issues. Currently on pancreas enzymesupplementation. #8 Personal History Of Other Malignant Neoplasm Of Skin -patient has a history of basal cell carcinoma. No skin concerns today. ABCDE of skin monitoring recommended. #9 Macrocytosis - Vitamin B12 Assay; Future; Expected date: 12/07/2020 - Folate; Future; Expected date: 12/07/2020 - Comprehensive Metabolic Panel; Future; Expected date: 12/07/2020 -patient has significant macrocytosis in the past, we will plan to follow this up in 6 months, with a CBC, B12, CMP, and folic acid level. Recommend referral to hematology at follow-up. #10 Scalp dermatitis -Lidex wash renewed for patient #11 Seasonal allergy -albuterol inhaler refilled, he uses p.r.n. with postnasal drainage induced wheezing #12 Adult health maintenance -age anticipatory guidance provided, support given -colonoscopy due in 2022 -vaccinations are up to date -he is past age for prostate cancer screening -recommended diabetes friendly diet Other orders - Family Medicine office visit (clinic) - metoprolol tartrate (LOPRESSOR) 25 mg tablet; Take 0.5 tablets (12.5 mg total) by mouth 2 (two) times a day., Starting Mon06/09/2020, Until Mon06/09/2021, Normal - fluocinonide (LIDEX) 0.05 % external solution; Apply 1 application topically as needed for rash (5-6 x month)., Starting Mon06/09/2020, Normal - allopurinoL (ZYLOPRIM) 300 mg tablet; Take 1 tablet (300 mg total) by mouth daily., Starting Mon06/09/2020, Normal - insulin lispro protamin-lispro (HumaLOG Mix 75-25,U-100,Insuln) 100 unit/mL (75-25) injection; Inject 82 Units under the skin 2 (two) times a day before breakfast and dinner., Starting Mon06/09/2020,Normal - albuterol sulfate (ProAir RespiClick) 90 mcg/actuation aerosol powdr breath activated inhaler; Inhale 2 puffs every 4 (four) hours as needed for wheezing., Starting Mon06/09/2020, Normal - Family Medicine office visit (clinic); Future; Expected date: 12/07/2020 Return visit in 6 months with labs, sooner if needed. Patient agrees with plan, verbalizes understanding of plan, is receptive to plan. Patient was provided verbal and written education. Patient has no further questions or concerns. Patient will follow upas needed or at the next scheduled return visit. Patient will call the clinic if there are any further questions or concerns in the meantime. Thank you for letting me be involved in your care. documented in this encounter Plan of Treatment Not on filedocumented as of this encounter Visit Diagnoses Diagnosis Personal History Of Other Malignant Neop lasm Of Skin - Primary Family History Coronary Artery Disease Hypertensive Heart And Chronic Kidney Di sease Without Heart Failure And With Stage 3 (Moderate) Chronic Kidney Disease (HCC) Coronary Artery Disease Without Angina P ectoris Hyperlipidemia Gout Diabetes Mellitus Type 2 With Diabetic C hronic Kidney Disease Hyperglycemic (HCC) Pancreatitis Chronic (HCC) Macrocytosis Diabetes Mellitus Type 2 With Diabetic N europathy (HCC) Dermatitis Other Allergic Rhinitis documented in this encounter Care Teams Pipe Manufacture Supervisor Relationship Specialty Start Date End Date Ebony Patton APRN, M.S.N., R.N. PCP - General 12/19/19 12/01/[address] [place] [address] SAKINA Wise [phone] documented as of this encounter
--- OUTSIDE RECORDS SUMMARY | 2022-05-24 18:23 | XMS_ITS | Encounter Summary ---
:1945 Author Organization [facility] Address [address] [place] [address] Care Team Providers Name Role Phone Cathy Mccoy M.D. Primary Care Provider Unavailable Encounter Details Date Type Department Care Team Description 12/04/2019 Hospital Encounter Department of Nadine, Diabetes Mellitus Type Laboratory Medicine Junior Morgan 2 With Diabetic in [place], Chronic Kidne y Disease [place] Hyperglycemic (HCC) [address] [place] [address] Social History Tobacco Use Types [...] or relatives? How often do you attend hindu or More than 4 times per year 06/14/2019 evangelical services? Do you belong to any clubs or Yes 06/14/2019 organizations such as hindu groups, unions, fraternal or athletic groups, or [...] left eye 2 (two) times a day. sdbgym-[id number] Take 2 capsules by 540 capsule 3 [...] Name Priority Date/Time Associated Diagnosis Comme nts ALBUMIN, RANDOM, U Routine 12/04/2019 8:42 AM Diabetes Mellitu s Type Results for this CDT 2 With Diabetic procedure ar e in Chronic Kidney Disease the r esults Hyperglycemic (HCC) section. documented in this encounter Results (ABNORMAL) Albumin, Random, Urine (12/04/2019 8:42 AM CDT) Analysis Performed At Patho logist Time Signature Microalbumin 63.0 mg/L 12/04/2019 MKTO 2:49 PM CDT Creatinine 92 mg/dL 12/04/2019 MKTO 2:49 PM CDT Albumin/Creatinin 68 (H) <17 mg/g 12/04/2019 MKTO e Ratio 2:49 PM CDT Specimen Anatomical Collection Method Collection Time Receive d Time (Source) Location / / Volume Laterality Urine (Urine, 12/04/2019 8:42 AM 12/04/19 20 2:12 Clean Catch) CDT PM CDT Cathy Mccoy M.D. LAB URINE ORDERABLES Performing Organization Address City/State/[facility] Phon e Number [facility]- [address] [place] [address] [place] [address] [address] documented in this encounter Visit Diagnoses Diagnosis Diabetes Mellitus Type 2 With Diabetic C hronic Kidney Disease Hyperglycemic (HCC) documented in this encounter Care Teams Skin Grader Relationship Specialty Start Date End Date Cathy Mccoy M.D. PCP - General 02/23/17 12/18/19 documented as of this encounter
--- OUTSIDE RECORDS SUMMARY | 2022-05-24 18:23 | XMS_ITS | Encounter Summary ---
:1945 Author Organization [facility] Address [address] [place] [address] Care Team Providers Name Role Phone Cathy Mccoy M.D. Primary Care Provider Unavailable Reason for Referral Outpatient (Routine) - Closed Specialty Diagnoses / Referred By Contact Referred To Procedures Contact Gastroenterology and Evan Zapata, [facility] Hepatology MJewels, Ph.D. [address] [place] [phone] Referral ID Status Reason Start Date Expiration Date Visits Requ ested Visits Authorized [id number] Closed 08/15/2019 08/14/2020 1 1 GER ENDOSCOPY MRI/CAT/PET Scan (Routine) - Closed Specialty Diagnoses / Procedures Referred By Contact Refer red To Contact Radiology Diagnoses Cyst Pancreas Evan Zapata M.D., [facility] Procedures MR Abdomen without and with IV Contrast Ph.D. [address] [place] [phone] Referral ID Status Reason Start Date Expiration Date Visits Requ ested Visits Authorized [id number] Closed 08/15/2019 08/14/2020 1 1 GER ENDOSCOPY Reason for Visit Reason Comments Pancreatitis Outpatient (Routine) - Closed Specialty Diagnoses / Referred By Contact Referred To Procedures Contact Gastroenterology and Evan Zapata [facility] Hepatology Junior, Ph.D. [address] [place] [phone] Referral ID Status Reason Start Date Expiration Date Visits Requ ested Visits Authorized [id number] Closed 03/28/2019 03/27/2020 1 1 Encounter Details Date Type Department Care Team Description 08/15/2019 Office Visit Department of Evan Zapata, Cyst Pancre as (HCC) Gastroenterology in Junior, Ph.D. [address] [phone] Social History Tobacco Use Types Packs/Day Years [...] or relatives? How often do you attend zoroastrianism or More than 4 times per year 06/14/2019 christian services? Do you belong to any clubs or Yes 06/14/2019 organizations such as zoroastrianism groups, unions, fraternal or athletic groups, or [...] Sign Reading Time Taken Comments Blood Pressure 110/80 08/15/2019 1:31 PM MANAGER ENDOSCOPY Pulse 68 08/15/2019 1:31 PM MANAGER ENDOSCOPY Temperature 36.4 ??C (97.5 ??F) 08/15/2019 1:31 PM MANAGER ENDOSCOPY Respiratory Rate 16 08/15/2019 1:31 PM MANAGER ENDOSCOPY Oxygen Saturation - - Inhaled Oxygen Concentration - - Weight 112 kg (247 lb 5.7 oz) 08/15/2019 1:31 PM MANAGER ENDOSCOPY Height 193 cm (6' 3.98) 08/15/2019 1:31 PM MANAGER ENDOSCOPY Body Mass Index 30.12 08/15/2019 1:31 PM MANAGER ENDOSCOPY documented in this encounter Progress Notes Evan Zapata M.D., Ph.D. - 08/15/2019 1:30 PM CST SUBJECTIVE Patient ID: Jorge Chance is a 74 y.o. male who presents for evaluation of Pancreatitis. HPI 74 y/o Male, first seen my clinic 03/2019 as FU of chronic pancreatitis since 2013. He is in use of Creon (2 pills TID) with okay control of BMs with sometimes loose stool and abdominal bloating. Recently, due to elevated potassium level and frequent loose stool, metformin and lisinopril were discontinued and he feels much better control BM now and K level stable as well. 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 Hx chronic pancreatitis (burn-out total calcified); ??BMI: 31; (113 kgs) ?? MEDs: creon (2 pills TID), vit E, NITRO, iNSULIN, ALLOPURINOL, LOPID, Metoprolol, albuterol, Ibuprofen prn; FH: denied CRC; mother -brain tumor; uncle some kind of cancer; SMK (-); alcohol (-) - 07/10/2019 Hb 15, MCV 104; WBC [...] disease, as well as a myeloid disorder. - 03/28/2019 Hb 14.1, MCV 105.7, PLT 172; WBC 6.3; cmp ok but K 6.0 (pt went to ED for care of hyperkalemia); cre 1.48 BUN 34; LFT wnl; B12 390; - 04/01/2019 Hb 13.3, MCV 107.1; - 03/2019 CEA 4.3 wnl; CA 19-9 10 wnl; 03/29/2018 - CBC ok, MCV 104 HIGH - 12/2018 - bun 31, CRE 1.32; SUGAR 139; A1C 5.9 - 03/2018 LFT wnl; CA 19-9 wnl;? - 04/03/2019 MR ABDOMEN MRCP WITHOUT AND WITH IV CONTRAST [...] measuring up to 10 mm. Numerous pancreatic calcifications better demonstrated on prior CT, which may account for filling defect within distal pancreatic duct best appreciated on coronal image 15 series 10, similar-appearing finding at this location on prior MRI. Persistent diffuse pancreatic atrophy. No biliary ductal dilatation. ??Abdominal aorta normal diameter. ??Visualized bowel normal diameter. No upper abdominal ascites. ??Degenerative findings of the spine. 07/16/2013??EGD? PREOPERATIVE DIAGNOSIS: ??Chronic diarrhea and weight [...] stable incidental nonacute findings as described above. ASSESSMENT / PLAN 1. Improving loose stool [...] may representcalcified stone given chronic pancreatic calcification; 3. DM, CKD cre 1.48; Today lab 03/28/2019 showed K 6.0 high and sugar 331; LFT wnl; 4. Hx of H pylori gastritis s/p abx in 2012; hx of colonic diverticulosis; PLAN: 1. - MRI abdomen (Pancreas) to assess chronic pancreatitis and assess if pancreas cancer high rish patient in 03/2020; pt has claustrophobia and may use oral Ativan (1mg/tab) 1-2 tab before MRI exam. 2. my office contact info is provided to pt for follow and up and further question or concern later on; informed patient about the availability of future communicating/updating through [place] patient portal; Clinic follow up in 6 months. GER ENDOSCOPY documented in this encounter Plan of Treatment Scheduled Referrals Name Type Priority Associated Order Schedule Diagnoses Gastroenterology and Outpatient Routine Expecte d: Hepatology office visit Referral 11/2019 (clinic) (Approximate), Expires: 08/15/2022 documented as of this encounter Results MR Abdomen without and with IV Contrast (06/09/2020 4:39 PM CDT) Anatomical Region Laterality Modality Abdomen, Abdominal RST LOS, Abdominal ARZ LOS, N/A Magnetic Resonance Abdominal FLA LOS Specimen (Source) Anatomical Collection Method Collection Time Re ceived Time Location / / Volume Laterality 06/09/2020 5:19 PM CDT Impressions 06/09/2020 5:22 PM CDT 1. Improved pancreatic ductal dilatation , now measuring 7.2 mm in greatest diameter compared to 10.2 mm on the stud y of 04/03/2019. 2. Stable significant pancreatic atrophy . 3. No separable pancreatic mass. Narrative 06/09/2020 5:22 PM CDT EXAM: MR ABDOMEN WITHOUT AND WITH IV CONTRAST COMPARISON: 04/03/2019 FINDINGS: There is stable diffuse pancre atic atrophy. There is persistent dilatation of the proximal pancreatic du ct, which has improved in the interim, now measuring 7.2 mm in greatest diamete r as compared to 10.2 mm on the prior study. There is no evidence of a separab le mass within the pancreatic head. Previously noted pancreatic calcificatio ns are not as well appreciated on this study as on a prior CT scan of 6. The liver, gallbladder, spleen, adrenal glands and kidneys are unchanged, including several bilateral nonenhancing renal cysts. Procedure Note James Craven M.D. - 06/09/2020Format ting of this note might be different from the original. EXAM: MR ABDOMEN WITHOUT AND WITH IV CON TRAST COMPARISON: 04/03/2019 FINDINGS: There is stable diffuse pancre atic atrophy. There is persistent dilatation of the proximal pancreatic du ct, which has improved in the interim, now measuring 7.2 mm in greatest diamete r as compared to 10.2 mm on the prior study. There is no evidence of a separab le mass within the pancreatic head. Previously noted pancreatic calcificatio ns are not as well appreciated on this study as on a prior CT scan of 6. The liver, gallbladder, spleen, adrenal glands and kidneys are unchanged, including several bilateral nonenhancing renal cysts. IMPRESSION: 1. Improved pancreatic ductal dilatation , now measuring 7.2 mm in greatest diameter compared to 10.2 mm on the stud y of 04/03/2019. 2. Stable significant pancreatic atrophy . 3. No separable pancreatic mass. Evan Zapata M.D., Ph.D. IMG MRI PROCEDURES documented in this encounter Visit Diagnoses Diagnosis Cyst Pancreas Cyst Pancreas documented in this encounter Care Teams Secretary Board Of Commissioners Relationship Specialty Start Date End Date Waldschmidt, Cathy, M.D. PCP - General 02/23/17 12/18/19 documented as of this encounter
--- OUTSIDE RECORDS SUMMARY | 2022-05-24 18:23 | XMS_ITS | Encounter Summary ---
:1945 Author Organization [facility] Address [address] [place] [address] Care Team Providers Name Role Phone Ebony Patton APRN, M.S.Mamta., R.N. Primary Care Provider + Reason for Referral MRI/CAT/PET Scan (Routine) - Closed Specialty Diagnoses / Procedures Referred By Contact Refer red To Contact Radiology Diagnoses Cyst Pancreas Evan Zapata M.D., [facility] Region Procedures MR Abdomen without and with IV Contrast Ph.D. [address] [place] [phone] Referral ID Status Reason Start Date Expiration Date Visits Requ ested Visits Authorized [id number] Closed 08/15/2019 08/14/2020 1 1 Reason for Visit MRI/CAT/PET Scan (Routine) - Closed Specialty Diagnoses / Procedures Referred By Contact Refer red To Contact Radiology Diagnoses Cyst Pancreas Evan Zapata M.D., [facility] Region Procedures MR Abdomen without and with IV Contrast Ph.D. [address] [place] [phone] Referral ID Status Reason Start Date Expiration Date Visits Requ ested Visits Authorized [id number] Closed 08/15/2019 08/14/2020 1 1 Encounter Details Date Type Department Care Team Description 06/09/2020 Hospital Encounter Department of Evan Zapata, Cyst Pancreas (HCC) Radiology, [place] M.D., Ph.[place] [facility] [place] [address] [place] [address] [place], [place] [phone] (Work) [phone] Social History Tobacco Use Types Packs/Day Years [...] or relatives? How often do you attend buddhist or More than 4 times per year 06/14/2019 sabianism services? Do you belong to any clubs or Yes 06/14/2019 organizations such as buddhist groups, unions, fraternal or athletic groups, or [...] 4 (four) times a day as needed. allopurinoL Take 1 tablet (300 mg 90 tablet 3 06/09/2020 (ZYLOPRIM) 300 mg total) by mouth daily. tablet gpuyqp-xobptdzd-zryol Take 2 capsules by 540 capsule 3 10/1106/10/2020 se (Creon) mouth 3 (three) times 24,000-76,000-120,000 a day. Unit per DR capsuleIndications: Pancreatitis Chronic (HCC) metoprolol tartrate Take 0.5 tablets (12.5 90 tablet 3 05/1310/15/2020 (LOPRESSOR) 25 mg mg total) by mouth 2 tablet (two) times a day. documented as of this encounter Plan of Treatment Not on filedocumented as of this encounter Procedures Procedure Name Priority Date/Time Associated Comments Diagnosis MR ABDOMEN RAD - Routine 06/09/2020 4:39 Cyst Pancreas Results fo r this WITHOUT AND WITH (most inpatients PM CDT (HCC) procedu re are in IV CONTRAST and all the results outpatients) section. documented in this encounter Results MR Abdomen without and [...] atrophy . 3. No separable pancreatic mass. Eavn Zapata M.D., Ph.D. IMG MRI PROCEDURES documented in this encounter Visit Diagnoses Diagnosis Cyst Pancreas documented in this encounter Administered Medications Inactive Administered Medications - up to 3 most recent administrations Medication Order MAR Action Action Date Dose Rate Site gadobutrol injection 0.01-30 mL Given 06/09/2020 4:40 PM CDT 10 mL (GADAVIST) 0.01-30 mL, intravenous, Once in imaging, contrast, Starting on Mon06/09/20 at 1640, For 1 dose, Imaging Protocol Orders, Dose per Radiant Medication Guidelines sodium chloride (PF) 0.9 % injection 1-1 00 mL Given 06/09/2020 4:45 PM CDT 50 mL 1-100 mL, intravenous, Once, On Mon06/09/20 at 1645, For 1 dose, Imaging Protocol Orders documented in this encounter Care Teams Tool Setter Apprentice Relationship Specialty Start Date End Date Ebony Patton APRN, M.S.N., R.N. PCP - General 12/19/19 12/01/[address] [place] [phone] documented as of this encounter
--- OUTSIDE RECORDS SUMMARY | 2022-05-24 18:23 | XMS_ITS | Encounter Summary ---
:1945 Author Organization [facility] [place] [facility] Address [address] [place] [address] Care Team Providers Name Role Phone Cathy Mccoy M.D. Primary Care Provider Unavailable Encounter Details Date Type Department Care Team Description 10/11/2019 Clinical Communication Department of Diana Radford, Gastroenterology in [address] [phone] Social History Tobacco Use Types Packs/Day Years [...] or relatives? How often do you attend anabaptist or More than 4 times per year 06/14/2019 adventism services? Do you belong to any clubs or Yes 06/14/2019 organizations such as anabaptist groups, unions, fraternal or athletic groups, or [...] encounter Miscellaneous Notes Telephone Encounter - Diana Radford R.N. - 10/11/2019 2:27 PM CST Patient calling to request new Rx of Creon be sent to pharmacy in a 90 day supply. SAMANTHA: 08/15/19- Dr. Zapata 74 y/o Male, first seen my clinic 03/2019 as FU of chronic pancreatitis since 2013. He is in use of Creon (2 pills TID) with okay control of BMs with sometimes loose stool and abdominal bloating. Rx pended for 90 day supply of Creon. ORT GUIDE documented in this encounter Plan of Treatment Not on filedocumented as of this encounter Visit Diagnoses Diagnosis Pancreatitis Chronic (HCC) documented in this encounter Care Teams Cone Chocolate Dipper Relationship Specialty Start Date End Date Cathy Mccoy M.D. PCP - General 02/23/17 12/18/19 documented as of this encounter
--- OUTSIDE RECORDS SUMMARY | 2022-05-24 18:23 | XMS_ITS | Encounter Summary ---
:1945 Author Organization [facility] Address [address] [place] [address] Care Team Providers Name Role Phone Cathy Mccoy M.D. Primary Care Provider Unavailable Reason for Visit Reason Onset Date Comments Med Refill 10/11/2019 Encounter Details Date Type Department Care Team Description 10/11/2019 Refill Department of Family Medicine Cathy Mccoy Med Refill in [facility] ynes Pacheco [address] [place] [address] Social History Tobacco Use [...] More than 4 times per year 06/14/2019 jain services? Do you belong to any clubs [...] this encounter Miscellaneous Notes Telephone Encounter - Hien Betancourt - 10/11/2019 1:58 PM CST Pt calling in needing a 90 days supply of his humalog [facility]. It will be more cost savings to receive a 90 day supply. 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 PCP - General 02/23/17 12/18/19 documented as of this encounter
--- OUTSIDE RECORDS SUMMARY | 2022-05-24 18:23 | XMS_ITS | Encounter Summary ---
:1945 Author Organization [facility] Address [address] [place] [address] Care Team Providers Name Role Phone Ebony Patton APRN, M.S.N., R.N. Primary Care Provider + Encounter Details Date Type Department Care Team Description 06/12/2020 Orders Only Department of Family Ebony Patton, Medicine in [place], Eloise DIEZ, R.N. [address] [address] [place] [address] [phone] Social History Tobacco Use Types Packs/Day Years [...] on filedocumented in this encounter Care Teams Student Career Development Specialist Relationship Specialty Start Date End Date Ebony Patton APRN, M.S.N., R.N. PCP - General 12/19/19 12/01/[address] [place] [address] SAKINA Carson [phone] documented as of this encounter
--- OUTSIDE RECORDS SUMMARY | 2022-05-24 18:24 | XMS_ITS | Encounter Summary ---
:1945 Author Organization [facility] Address [address] [place] [address] Care Team Providers Name Role Phone Cathy Mccoy M.D. Primary Care Provider Unavailable Encounter Details Date Type Department Care Team Description 06/05/2019 Orders Only Department of Family Camilla Mccoy (Primary Medicine in [place] Dx) [facility] a [address] [place] [address] Social History Tobacco Use Types [...] or relatives? How often do you attend bahai or More than 4 times per year 06/14/2019 taoism services? Do you belong to any clubs or Yes 06/14/2019 organizations such as bahai groups, unions, fraternal or athletic groups, or [...] or getting things needed for daily living? Sex Assigned at Date Recorded Male 04/17/2019 1:04 PM CDT documented as of this encounter Plan of Treatment Not on filedocumented as of this encounter Results (ABNORMAL) Potassium (06/06/2019 10:04 AM CDT) P athologist Signature Potassium, S 5.6 (H) 3.6 - 5.2 06/06/2019 mmol/L 10:55 AM CDT Specimen Anatomical Collection Method Collection Time Receive d Time (Source) Location / / Volume Laterality Blood (Blood, 06/06/2019 10:04 06/06/2019 Venous) AM CDT 10:55 AM CDT Cathy Mccoy M.D. LAB BLOOD ADD-ON Performing Organization Address City/State/ZIP Code Phon e Number [facility]- [address] [place] [address], [place] [address] [facility] documented in this encounter Visit Diagnoses Diagnosis Hyperkalemia - Primary documented in this encounter Care Teams Salvation [employer] Officer Relationship Specialty Start Date End Date Cathy Mccoy M.D. PCP - General 02/23/17 12/18/19 documented as of this encounter
--- OUTSIDE RECORDS SUMMARY | 2022-05-24 18:24 | XMS_ITS | Encounter Summary ---
:1945 Author Organization [facility] Address [address] [place] [address] Care Team Providers Name Role Phone Cathy Mccoy M.D. Primary Care Provider Unavailable Reason for Visit Reason Comments Med Refill Encounter Details Date Type Department Care Team Description 06/20/2019 Refill Department of Family Medicine Cathy Mccoy, Med Refill in [facility] ynes Pacheco [address] [place] [address] Social History Tobacco Use Types Packs/Day Years [...] or relatives? How often do you attend presybeterian or More than 4 times per year 06/14/2019 nondenominational services? Do you belong to any clubs or Yes 06/14/2019 organizations such as presybeterian groups, unions, fraternal or athletic groups, or [...] on filedocumented in this encounter Care Teams Budget Specialist Relationship Specialty Start Date End Date Cathy Mccoy M.D. PCP - General 02/23/17 12/18/19 documented as of this encounter
--- OUTSIDE RECORDS SUMMARY | 2022-05-24 18:24 | XMS_ITS | Encounter Summary ---
:[address] [facility] Address [address] [place] [address] Care Team Providers Name Role Phone Cathy Mccoy M.D. Primary Care Provider Unavailable Reason for Visit Outpatient (Routine) - Closed Specialty Diagnoses / Procedures Referred By Contact Refer red To Contact Nutrition Diagnoses fu Cathy Mccoy M.D. [facility] Region [address] [place] [phone] Referral ID Status Reason Start Date Expiration Date Visits Requ ested Visits Authorized [id number] Closed 06/26/2019 06/25/2020 1 1 Encounter Details Date Type Department Care Team Description 08/05/2019 Clinical Support Department of Cathy Mccoy M .D. Diabetes Mellitus Type Nutrition in Aly Wise, Velma Chambers RIván [address] [place] [phone] 2 With Diabetic [place] Chronic Kidney Disease [address] [facility] Hyperglycemic (HCC) [place] (Primary Dx) [phone] Social History Tobacco Use Types Packs/Day Years [...] or relatives? How often do you attend holiness or More than 4 times per year 06/14/2019 pentecostalism services? Do you belong to any clubs or Yes 06/14/2019 organizations such as holiness groups, unions, fraternal or athletic groups, or [...] to pay for the very basics like Danna nunez crystal hard 06/14/2019 food, housing, medical care, [...] documented as of this encounter Progress Notes Aly, Velma Chambers R.N., Bruce. - 08/05/2019 10:00 AM CST REASON FOR VISIT Diabetes Education Referred by: Cathy Mccoy M.D. HISTORY OF PRESENT ILLNESS Jorge attends with his [place] and his log book ready to share blood sugars from the last few weeks. The goal was to reduce the evening dose of Humalog 75/25 from 91 to 86 U in an effort to reduce nocturnal hypoglycemia. Jorge has reduced the insulin about 90% of the time. CDE notes on 2 days he took the first and last dose of Humalog about 4-5 hours apart. He could not recall the details but the times in his log book clearly noted the times. He did recall that he had done it, things were messed up that day. Using [id number] sheet of HumaLog 75/25 we reviewed the action of the insulin and the importance not to double up on the dosing. On 07/24/19 Jorge had a 49 fasting. He explained that he did not eat the amount of carbohydrates at the evening meal prior due to his cataract surgery that morning. Discussed the importance of eating about the same amount of carbohydrate at each meal. Diabetes Visit type: follow-up Diabetes type: type 2 Blood glucose ranges (mg/dl): Date: last 2 weeks Breakfast: Range: 49-291 Preprandial range: 49-291 Dinner: Preprandial range: 200's often will snack in the afternoon. OBJECTIVE Pertinent Labs: Lab Results Component Value Date HGBA1C 7.4 (H) 06/03/2019 HGBA1C 5.9 (H) 12/12/2018 HGBA1C 6.4 (H) 05/04/2018 Lab Results Component Value Date HDL 25 (L) 12/12/2018 HDL 25 (L) 10/16/2017 HDL 24 (L) 10/12/2016 Lab Results Component Value Date LDLCALC 66 12/12/2018 LDLCALC 75 10/16/2017 LDLCALC 88 10/12/2016 Lab Results Component Value Date TRIG 109 12/12/2018 TRIG 150 (H) 10/16/2017 TRIG 144 10/12/2016 Lab Results Component Value Date CREATININE 1.27 07/10/2019 CREATININE 1.19 06/26/2019 CREATININE 1.44 (H) 06/14/2019 Lab Results Component Value Date EGFR 55 (L) 07/10/2019 EGFR 59 (L) 06/26/2019 EGFR 47 (L) 06/14/2019 ASSESSMENT CDE identified patient knowledge gaps or diabetes skills that patient needs education/training on asthe following: Review action of HumaLog 75/25; Patient Education Provided: Yes, patient education was provided, refer to the patients education record. Evaluation of Learning: Barriers that were noted at education session and how addressed: no barriers to learning Patient's response to learning completed today: OK, I will do my best. Will need further education on the following: Encouraged to meet with RDN, refuses at this time. Medication Changes: No Medication recommendations: Continue to take mixed insulin AC breakfast and AC supper. Do not take < 8-10 hours apart. PLAN The patient has the following support and personal plans for managing their diabetes: Goal #1: I will check my blood sugar 3 times per day, fasting pre and post supper. I will bring my log to Velma in 2 weeks. DMPLAN: Patient completed diabetes eduacaton program. Patient encouraged to call/message team with questions and attend annual diabetes education. 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 PCP - General 02/23/17 12/18/19 documented as of this encounter
--- OUTSIDE RECORDS SUMMARY | 2022-05-24 18:24 | XMS_ITS | Encounter Summary ---
:1945 Author Organization [facility] Address [address] [place] [address] Care Team Providers Name Role Phone Cathy Mccoy M.D. Primary Care Provider Unavailable Reason for Visit Reason Comments Med Refill Pend evening dose of Humalog 75/25 reduction to 86 U AC supper Encounter Details Date Type Department Care Team Description 06/26/2019 Refill Department of Nutrition Aly, Velma Chambers Med Refill (Pend evening in [place], [place] R.N. dose of Humalog 75/25 [address] [facility] [address] [facility] reduction [place] [address] [place] [address] [place], [place] supper) [phone] Social History Tobacco Use Types Packs/Day [...] More than 4 times per year 06/14/2019 religion services? Do you belong to any clubs [...] this encounter Miscellaneous Notes Telephone Encounter - Velma Lu R.N., C.DKamilaE. - 06/26/2019 11:33 AM CDT I have asked Jorge to reduce his evening dose of Humalog 75 /25 from 91 to 86 U. Remain at 91 U Am Dose. He is coming back to see me in about a month. Will send me notes of concern via portal in the meantime. Not feeling the 63, but felt low at 50. Fast noon acsup Hs 115 125 80 84 112 May have eaten something in the middle of the night 208 70 216 79 180 63 228 303 73 97 82 264 50 236 371 151 189 111 Thank you! Velma documented in this encounter Plan of Treatment Not on filedocumented as of this encounter Visit Diagnoses Not on filedocumented in this encounter Care Teams Milieu Coordinator Relationship Specialty Start Date End Date Cathy Mccoy M.D. PCP - General 02/23/17 12/18/19 documented as of this encounter
--- OUTSIDE RECORDS SUMMARY | 2022-05-24 18:24 | XMS_ITS | Encounter Summary ---
:1945 Author Organization [facility] Address [address] [place] [address] Care Team Providers Name Role Phone Cathy Mccoy M.D. Primary Care Provider Unavailable Encounter Details Date Type Department Care Team Description 06/11/2019 Orders Only Department of Family Camilla Mccoy (Primary Medicine in [place]x) [facility] a [address] [place] [address] Social History Tobacco Use Types [...] More than 4 times per year 06/14/2019 baptism services? Do you belong to any clubs [...] as of this encounter Visit Diagnoses Diagnosis Hyperkalemia - Primary documented in this encounter Care Teams Corporate Communications Manager Relationship Specialty Start Date End Date Cathy Mccoy M.D. PCP - General 02/23/17 12/18/19 documented as of this encounter
--- OUTSIDE RECORDS SUMMARY | 2022-05-24 18:24 | XMS_ITS | Encounter Summary ---
:1945 Author Organization [facility] Address [address] [place] [address] Care Team Providers Name Role Phone Cathy Mccoy M.D. Primary Care Provider Unavailable Reason for Visit Auth/Cert Specialty Diagnoses / Procedures Referred By Contact Refer red To Contact Diagnoses Cataract Procedures SC RMVL CATARACT EXTRACAP CMPLX PHACOEMULSIFICATION CATARACT WITH INTRAOCULAR LENS IMPLANTATION Referral ID Status Reason Start Date Expiration Date Visits Requ ested Visits Authorized [id number] 1 1 Encounter Details Date Type Department Care Team Description 07/16/2019 Hospital Encounter [facility] OR Bouchra Ta, [address] [address] [address] [facility] [phone] [place] [phone] (Wo rk) Social History Tobacco Use Types [...] or relatives? How often do you attend yarsani or More than 4 times per year 06/14/2019 [employer] services? Do you belong to any clubs or Yes 06/14/2019 organizations such as yarsani groups, unions, fraternal or athletic groups, or [...] Sign Reading Time Taken Comments Blood Pressure 143/81 07/16/2019 10:33 AM VIDEO PRODUCER Pulse 52 07/16/2019 10:33 AM VIDEO PRODUCER Temperature 36.4 ??C (97.5 ??F) 07/16/2019 10:33 AM VIDEO PRODUCER Respiratory Rate 16 07/16/2019 10:33 AM VIDEO PRODUCER Oxygen Saturation 98% 07/16/2019 10:33 AM VIDEO PRODUCER Inhaled Oxygen Concentration - - Weight 111 kg (244 lb 11.4 oz) 07/16/2019 9:03 AM VIDEO PRODUCER Height - - Body Mass Index 29.8 07/10/2019 10:21 AM CDT documented in this encounter Discharge Instructions Discharge InstructionsBouchra Ta M.D. - 07/16/2019 10:31 AM VIDEO PRODUCER Images from the original note were not included. Anesthesia Discharge Instructions Adult - Outpatient After sedation After you have been sedated, it is common to have lapses of memory, slowed reaction time and impaired judgment. Arrange for someone to accompany you to and from your appointment and drive you home. Youmay need this person to help you at home as well. ?? Rest. ?? Do not drive or operate motorized vehicles or equipment. ?? Do not return to work or school. ?? Do not take on responsibility for children or anyone who depends on your care. ?? Do not use exercise equipment or take part in rough play or sports. ?? Do not drink alcoholic beverages. Medication Do not take any medications that are unknown to your surgeon. If your pain is not controlled, notifyyour surgeon. In addition, because you were given: ?? General anesthesia..you may experience: A sore throat that may last a few days. Generalized body soreness for a few days. ?? Spinal anesthesia..notify your physician if you: Have a severe headache (if headache is mild, increase fluids you drink) Notice any residual weakness or numbness Develop severe back pain ?? Monitored anesthesia care (MAC) with local..you may have: Numbness in the affected area. Until the numbness wears off, you will not be able to feel heat, cold, or pressure like normal. Protect the extremity from these sensations. Notify your physician if you have numbness or tingling that lasts longer than 24 hours. ?? IV regional block anesthesia with MAC..you may have: Numbness or tingling in the ???blocked or deadened?? area may last up to 24 hours. Until the numbness wears off, you will not be able to feel heat, cold, or pressure like normal. Protect the extremityfrom these sensations. Notify your physician if you have numbness or tingling that lasts longer than24 hours. ?? Upper extremity block/lower extremity block..you may have: Numbness or tingling in the ???blocked or deadened?? area may last up to 24 hours. Until the numbness wears off, you will not be able to feel heat, cold, or pressure like normal. Protect the extremityfrom these sensations. Notify your physician if you have numbness or tingling of your affected extremity that lasts longer than 24 hours. This material is for your education and information only. This content does not replace medical advice, diagnosis or treatment. New medical research may change this information. If you have questions about a medical condition, always talk with your health care provider. Caring for your Eye Please administer 1 drop from all 3 of your prescription eye drop bottles 3 more times today. Keep shield on at all times during the day and overnight except for when administering the eye drops Do not rub the eye. Avoid heavy lifting (>15 pounds), bending at the waist (keep your head above your heart), or straining (anything that elevates your heart rate or turns you red in the face). Call [facility] ([phone]) with severe pain or loss of vision. Follow up tomorrow morning as scheduled for your first post operative appointment O PRODUCER documented in this encounter Medications at Time of Discharge Medication Sig Dispensed Refills Start Date End Date DOCOSAHEXANOIC Take 1 capsule by 0 06/13/2013 ACID/EPA (FISH OIL mouth 3 (three) times ORAL) a day. When remembers EPINEPHrine Inject 0.3 mg 0 06/30/2014 (for_EPIPEN) 0.3 intramuscularly once. mg/0.3 mL injection syringe ibuprofen Take 2 tablets by 0 04/14/2017 (for_ADVIL,MOTRIN) 200 mouth every 4 (four) mg tablet hours as needed. phenylephrine phenylephrine 0.5% 0 08/23/2013 (for_NEO-SYNEPHRINE) nasal [...] HFA) 90 needed. mcg/actuation inhaler allopurinol (ZYLOPRIM) Take 1 tablet (100 mg 180 tablet 2 09/18/2019 100 mg tablet total) by mouth 2 (two) times a day. benzocaine 10 % liquid Apply 1 application 0 04/201608/15/2019 topically 4 (four) times a day. blood sugar diagnostic 5 test daily. Use to 400 strip 3 09/06/2019 (ONETOUCH ULTRA BLUE test 4-5 times a day TEST STRIP) strips E11.9 diphenhydrAMINE Take 25 mg by mouth as 0 04/14/20 17 06/09/2020 (for_BENADRYL) 25 mg needed. tablet fluocinonide Apply 1 application 20 mL 3 10/18/2017 (for_LIDEX) 0.05 % topically as needed external solution for rash (5-6 x month). gemfibrozil (LOPID) Take 1 tablet (600 mg 180 tablet 2 10/2408/22/2019 600 mg tablet total) by mouth 2 (two) times a day. insulin lispro 91 U before breakfast; 80 mL 3 9 12/06/2019 protamin-lispro 86 U before supper. 90 (HumaLOG Mix day supply; lifetime 75-25,U-100,Insuln) 100 unit/mL (75-25) injection insulin syringe-needle USE FOR INSULIN 100 each 4 05/27/20 19 12/06/2019 U-100 1 mL 31 gauge x INJECTIONS TWO TIMES A 01/24 syringe DAY ketorolac (ACULAR) 0.5 Administer 1 drop into 1 1 12/06/2019 % ophthalmic solution the left eye 2 (two) times a day. lancets 1 test 5 (five) times 0 a day. Pharmacy to dispense lancets that are covered by patient's insurance to allow patient to test glucose 4 to 5 times a day. ICD 10: E11.22 asimyi-yjrvxlei-gkxksc Take 2 capsules by 180 capsule 11 03/1310/11/2019 e (CREON) mouth 3 (three) times 24,000-76,000-120,000 a day. [...] (five) minutes as needed for chest pain. ofloxacin (OCUFLOX) 1 07/05/201908/15 0.3 % ophthalmic solution prednisoLONE acetate 1 07/05/201911/10 (PRED FORTE) 1 % ophthalmic suspension documented as of this encounter H&P Notes Bouchra Ta M.D. - 07/16/2019 9:21 AM CST INTERVAL HISTORY AND PHYSICAL PRE-PROCEDURE UPDATE H&P reviewed. The patient was examined and there are no significant changes to the H&P. Bouchra Ta M.D. O PRODUCER Source Note - Cathy Mccoy M.D. - 07/10/2019 10:30 AM CDT SUBJECTIVE CHIEF COMPLAINT/REASON FOR VISIT Chief Complaint Patient presents with ??? Pre-op Exam cataracts, [facility] [place] [facility] HISTORY OF PRESENT ILLNESS Jorge [place] is a 74 y.o. male who presents at the request of Dr. Ta for cataract removal on 07/16/2019 and 07/30/2019 at [facility]. He had this schedule previously but was having elevated potassium so this got delayed and we are going to recheck potassium today. We talked about his diabetes and evidently he was going low so they cut back on his insulin and then he started going up again. He is working with diabetic Education on this. She does complain of elbow pain and right shoulder pain for last few days. REVIEW OF SYSTEMS Constitutional: Positive for fatigue. Fatigue is getting better Eyes: Positive for visual problems. Having cataract surgery done Respiratory: Positive for sleep disturbances due to breathing. Genitourinary: Positive for erectile dysfunction. Musculoskeletal: Positive for arthralgias, pain or stiffness in the joints and muscle pain/stiffness. Right shoulder pain and in the last few days pain in the anterior elbow area Neurological: Positive for numbness or shooting pain in hands, arms, legs, or feet. Psychiatric/Behavioral: Positive for snores loudly and stop breathing, choking, or gasping while asleep. notes sleep apnea The following systems were negative: ENT, Hematologic MEDICAL HISTORY Patient Active Problem List Diagnosis [...] N/A 02/23/2007 Excision of calcaneal spur ??? PLACEMENT OF STENT IN CARDIAC CONDUIT [...] Brother ??? Urolithiasis Brother ??? Diabetes Brother No anesthesia or bleeding problems. SOCIAL HISTORY Social History Tobacco Use ??? [...] needed. ??? allopurinol (ZYLOPRIM) 100 mg tablet Take 1 tablet (100 mg total) by mouth 2 (two) times a day. 180 tablet 2 ??? benzocaine 10 % liquid Apply 1 application topically 4 (four) times a day. ??? blood sugar diagnostic (ONETOUCH ULTRA BLUE TEST STRIP) strips 5 test daily. Use to test 4-5 times a day E11.9 400 strip 3 ??? diphenhydrAMINE (for_BENADRYL) 25 mg tablet Take 25 mg by mouth as needed. ??? DOCOSAHEXANOIC ACID/EPA (FISH OIL ORAL) Take 1 capsule by mouth 3 (three) times a day. ??? EPINEPHrine (for_EPIPEN) 0.3 mg/0.3 mL injection syringe Inject 0.3 mg intramuscularly once. ??? fluocinonide (for_LIDEX) 0.05 % external solution Apply 1 application topically as needed for rash (5-6 x month). 20 mL 3 ??? gemfibrozil (LOPID) 600 mg tablet Take 1 tablet (600 mg total) by mouth 2 (two) times a day. 180tablet 2 ??? ibuprofen (for_ADVIL,MOTRIN) 200 mg tablet Take 2 tablets by mouth every 4 (four) hours as needed. ??? insulin lispro protamin-lispro (HumaLOG Mix 75-25,U-100,Insuln) 100 unit/mL (75-25) injection 91U before breakfast; 86 U before supper. 90 day supply; lifetime 80 mL 3 ??? insulin syringe-needle U-100 1 mL 31 gauge x 5/16 syringe USE FOR INSULIN INJECTIONS TWO TIMES ADAY 100 each 4 ??? pszvxa-linexooy-gdivjlz (CREON) 24,000-76,000-120,[address] capsule Take 2 capsules by mouth 3 (three) times a day. 180 capsule 11 ??? metFORMIN XR (GLUCOPHAGE-XR) 500 mg 24 hr tablet Take 1 tablet (500 mg total) by mouth daily. 90tablet 2 ??? metoprolol tartrate (LOPRESSOR) 25 mg tablet [...] (four) times a day as needed. ??? ketorolac (ACULAR) 0.5 % ophthalmic solution 1 ??? ofloxacin (OCUFLOX) 0.3 % ophthalmic solution 1 ??? prednisoLONE acetate (PRED FORTE) 1 % ophthalmic suspension 1 OBJECTIVE VITAL SIGNS BP 110/76 (BP Location: Left arm, Patient Position: Sitting, Cuff Size: Large) Pulse 64 Temp 36.2 ??C (Temporal) Resp 20 Ht 193 cm Wt 109 kg BMI 29.16 kg/m?? PHYSICAL EXAMINATION General: Alert, in no apparent distress, nontoxic appearing. Mood and affect were appropriate to thesituation. HEENT: No pallor or icterus. Conjunctivae and sclerae clear without redness or drainage. Oropharynx was clear with no erythema, exudate or tonsillar enlargement. Moist mucous membranes. Tympanic membranes pearly wang bilaterally. Cataracts noted. Neck: Trachea was midline. No lymphadenopathy. No thyromegaly or palpable masses. No carotid bruits. Heart: S1, S2 with no significant murmurs, rubs or gallops. Odin rate and regular rhythm. Lungs: Breath sounds were clear throughout bilaterally. Respirations were regular, nonlabored. Abdomen: Soft, nontender, nondistended with bowel sounds active x 4 quadrants. No abdominal bruits. No rebound tenderness or guarding. No obvious masses or hernias. No organomegaly noted. Extremities: Without redness, swelling, or edema. Skin: [place], warm, dry and intact with no rashes noted. Neurologic: No focal deficits. Sensorimotor function was intact in the bilateral upper and lower extremities. Pupils were equal, round, and reactive to light. Normal gait and posture noted. DTRs 2+/4. Strengths 5/5. ASSESSMENT / PLAN #1 Preoperative Exam We are checking a CBC and his hemoglobin is 15.4 platelet count is 178 and leukocytes are 6. He had an EKG in March that showed sinus rhythm with 1st degree AV block, left axis deviation and low anterolateral forces. Cannot rule out inferior infarct but he has had a heart attack many years ago. 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 He is not taking metformin because it was thought that might be affecting his potassium. 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 Told him to take his metoprolol with a small sip of fluid the day of his surgery. - BMP (Basic Metabolic Panel) Addendum: Patient is cleared for surgery in outpatient venue. ADMINISTRATIVE BILLING Total time spent 30 minutes, 25 minutes spent in counseling and coordination of care. documented in this encounter OR Notes Op Note - Bouchra Ta M.D. - 07/16/2019 10:15 AM CST FULL OP NOTE Procedure(s) (LRB): PHACOEMULSIFICATION CATARACT WITH INTRAOCULAR LENS IMPLANTATION (Right) Surgeon(s) and Role: * Bouchra Ta M.D. - Primary Anesthesia Type Moderate sedation (rn) Pre-operative Diagnosis Visually significant nuclear sclerotic cataract of the right eye Post-operative Diagnosis Pseudophakia, right eye Findings As expected. Complications None Description of Procedure After informed written consent was obtained, the patient was brought into the operating room and placed in the supine position. The appropriate leads and monitors were placed by the anesthesia team andmonitored anesthesia care was induced. Tetracaine was instilled into the operative eye, and the patient was then prepped and draped in the usual sterile fashion. A time-out was performed to ensure the correct patient and eye were confirmed by all present in the operating room. An eyelid speculum was placed. Using a 1.0 mm sideport blade, a paracentesis was performed 60 degrees temporal to the planned temporal incision. Approximately 0.5 cc of 1% preservative free epi-Shugarcaine was then injected into the anterior chamber. A cohesive and dispersive viscoelastic were injected into the anterior chamber using an Arshinoff shell technique. A 2.75 mm keratome was then used to make the temporal incision. A cystotome and uttrata forceps were used to create a continuous curvilinear capsulorrhexis. Hydrodissection was performed to free the nucleus from the capsule and the nucleusrotated freely within the capsule. Using a chopping technique, phacoemulsification was performed to e mulsify the nucleus. The irrigation/aspiration handpiece was then used to remove the remaining cortical material. Using a sigifredo squeegee, the capsular bag was polished. The bag was then filled with viscoelastic and the intraocular lens was injected into the capsule and rotated into position. The irrigation/aspiration handpiece was then used to remove the remaining viscoelastic. The wound was hydratedwith balanced salt solution. 0.05 ml of preservative free moxifloxacin was injected into the anterior chamber. At the conclusion of the case the wound was watertight, the pupil was round, the IOL was centered and the anterior chamber was deep and formed. Antibiotic and steroid eye drops were placed inthe operative eye, the lid speculum and drapes were removed, and a protective shield was taped over the operative eye. The patient then left the operating room in stable condition. Specimens None Drains None Estimated Blood Loss None Implants Implant Name Type Inv. Item Serial No. Meat Scrubber Lot No. LRB No. Used LENS ULT [id number] ANT +17.0D - [id number] - [id number] Ocular Lens LENS ULT [id number] ANT +17.0D [id number] Replise N/A Right 1 Bouchra Ta M.D. O PRODUCER documented in this encounter Plan of Treatment Not on filedocumented as of this encounter Procedures Procedure Name Priority Date/Time Associated Comments Diagnosis GLUCOSE POCT, B Routine 07/16/2019 10:38 Results for this AM VIDEO PRODUCER procedure are i n the results section. PHACOEMULSIFICATION 07/16/2019 10:05 Cataract CATARACT WITH INTRAOCULAR AM VIDEO PRODUCER LENS IMPLANTATION Special Needs Epishugarcaine GLUCOSE POCT, B Routine 07/16/2019 9:58 AM VIDEO PRODUCER Re sults for this procedure are in the results sec tion. GLUCOSE POCT, B Routine 07/16/2019 9:43 AM VIDEO PRODUCER Re sults for this procedure are in the results sec tion. GLUCOSE POCT, B Routine 07/16/2019 9:26 AM VIDEO PRODUCER Re sults for this procedure are in the results sec tion. documented in this encounter Results Glucose, POCT (07/16/2019 10:38 AM VIDEO PRODUCER) P athologist Signature Glucose, POCT, 114 70 - 140 07/16/2019 MKTO B mg/dL 10:38 AM VIDEO PRODUCER Specimen Anatomical Collection Method Collection Time Receive d Time (Source) Location / / Volume Laterality Blood 07/16/2019 10:38 07/16/2019 AM VIDEO PRODUCER 10:52 AM VIDEO PRODUCER Generic Rals LAB POCT ORDERABLES-MANUAL Performing Organization Address City/State/ZIP Code Phon e Number [facility] [place] [address] [facility] [place] [address] System [address] Glucose, POCT (07/16/2019 9:58 AM VIDEO PRODUCER) P athologist Signature Glucose, POCT, 96 70 - 140 07/16/2019 MKTO B mg/dL 9:58 AM VIDEO PRODUCER Specimen Anatomical Collection Method Collection Time Receive d Time (Source) Location / / Volume Laterality Blood 07/16/2019 9:58 AM 9 VIDEO PRODUCER 10:09 AM VIDEO PRODUCER Generic Rals LAB POCT ORDERABLES-MANUAL Performing Organization Address City/[facility]/ZIP Code Phon e Number [facility] [place] [address] [facility] [place] [address] Glucose, POCT (07/16/2019 9:43 AM VIDEO PRODUCER) P athologist Signature Glucose, POCT, 116 70 - 140 07/16/2019 MKTO B mg/dL 9:43 AM VIDEO PRODUCER Specimen Anatomical Collection Method Collection Time Receive d Time (Source) Location / / Volume Laterality Blood 07/16/2019 9:43 AM 9 VIDEO PRODUCER 10:09 AM VIDEO PRODUCER Generic Rals LAB POCT ORDERABLES-MANUAL Performing Organization Address City/State/ZIP Code Phon e Number [facility] [address] [place] [id number] [facility] [place] [address] System in [place] [address] [place] [address] (ABNORMAL) Glucose, POCT (07/16/2019 9:26 AM VIDEO PRODUCER) P athologist Signature Glucose, POCT, 46 (L) 70 - 140 07/16/2019 MKTO B mg/dL 9:26 AM VIDEO PRODUCER Specimen Anatomical Collection Method Collection Time Receive d Time (Source) Location / / Volume Laterality Blood 07/16/2019 9:26 AM 9 VIDEO PRODUCER 10:09 AM VIDEO PRODUCER Generic Rals LAB POCT ORDERABLES-MANUAL Performing Organization Address City/State/ZIP Code Phon e Number [facility] [place] [address] [place] [address] System in [place] [address] [facility] documented in this encounter Visit Diagnoses Not on filedocumented in this encounter Administered Medications Inactive Administered Medications - up to 3 most recent administrations Medication Order MAR Action Action Date Dose Rate Site acetaminophen tablet 650 mg (TYLENOL) 650 mg, oral, Once as needed, mild pain or score 1-3 of 10, moderate pain or score 4-6 of 10, Starting on Mon07/16/19 at 1014, For 1 dose cyclopentolate 1 % ophthalmic solution 1 drop Given 9:54 AM VIDEO PRODUCER 1 drop (CYCLOGYL) 1 drop, right eye, Every 5 min, First dose on Mon07/16/19 at 0900, For 3 doses, Pre-Op, in operative eye, Indications: perioperative mydriasis Given 07/16/2019 9:50 AM VIDEO PRODUCER 1 drop Given 07/16/2019 9:45 AM VIDEO PRODUCER 1 drop dextrose 40 % gel 15 g (GLUTOSE) 15 g, oral, As needed, low blood sugar, For glucose 51-70 mg/dL, Starting on Mon07/16/19 at 0928, If patient is conscious and able to s wallow safely and has a fuctioning gastrointestinal tract or on Acarbose (Prec ose??) or Miglitol (Glyset??). May use tablets or gel. dextrose 50 % injection 12.5 g Given 07/16/2019 10:01 AM VIDEO PRODUCER 12.5 g 12.5 g, intravenous, As needed, low blood sugar, For glucose 51-70 mg/dL, Starting on Mon07/16/19 at 0928, If the patient has intravenous access available, is not able to take oral feeding safely, does not have a functioning gastrointestinal tract or feeding tube, or is NPO, administer D50W intravenously. Given 07/16/2019 9:32 AM VIDEO PRODUCER 12.5 g dextrose 50 % injection 25 g 25 g, intravenous, As needed, low blood sugar, For glu cose less than 50 mg/dL, Starting on Mon07/16/19 at 0928, If intravenous access is available, administer D50W intravenously glucagon injection 1 mg (GlucaGen) 1 mg, subcutaneous, Once as needed, low blood sugar, F or glucose 51-70 mg/dL, Starting on Mon07/16/19 at 0928, For 1 d ose, If patient is not able to take oral feeding safely, does not have a function ing gastrointestinal tract or feeding tube, or is NPO. Following treatment with Gluc agon, a source of glucose should be started to maintain blood glucose level (e.g., patient should eat oral carbohydrates if allowed or perscriber should be contacte d to consider starting fluids containing dextrose) Glucagon may only be given once per hypoglyc emia episode. glucagon injection 1 mg (GlucaGen) 1 mg, subcutaneous, Once as needed, low blood sugar, F or glucose less than 50 mg/dL, Starting on Mon07/16/19 at 0928, For 1 dose, If intravenous access not available and patient is not able to take oral feeding safely, does not have a functioning gastrointestinal tract or feeding tube. glucose chewable tablet 16 g 16 g, oral, As needed, low blood sugar, For glucose 51-70 mg/dL, Starting on Mon07/16/19 at 0928, If patient is conscious and able to s wallow safely and has a functioning gastrointestinal tract or on Acarbose (Pre cose??) or Miglitol (Glyset??). Administer 4 tablets to total 16 grams. Ma y use tablets or gel. lactated ringers New Bag 07/16/2019 9:49 AM VIDEO PRODUCER 20 mL/hr 20 mL/hr 20 mL/hr, intravenous, Continuous, Starting on Mon07/16/19 at 1045, Pre-Op midazolam (PF) injection (VERSED) Given 07/16/2019 10:10 AM VIDEO PRODUCER 0.5 mg Code/trauma/sedation medication, Starting on Mon07/16/19 at 1010 naloxone injection 0.2 mg (NARCAN) 0.2 mg, intravenous, As needed, respirat ory depression, Starting on Mon07/16/19 at 1014, For respiratory rate less than 8 b reaths per minute or RASS score of -3, -4, -5. Apply oxygen to keep oxygen saturati ons greater than 90% and notify service. phenylephrine 2.5 % ophthalmic solution 1 Given 07/16/2019 9:55 AM VIDEO PRODUCER 1 drop drop (MYDFRIN) 1 drop, right eye, Every 5 min, First dose on Mon07/16/19 at 0900, For 3 doses, Pre-Op, in operative eye, Indications: mydriasis Given 07/16/2019 9:50 AM VIDEO PRODUCER 1 drop Given 07/16/2019 9:45 AM VIDEO PRODUCER 1 drop sodium chloride 0.9 % injection 10 mL 10 mL, intravenous, As needed, line care , Starting on Mon07/16/19 at 0859, Pre-Op, Peripheral Intravenous Catheter and Rapid Infusion Cat heter, prior to blood sampling, post blood transfusion or post blood samplin g sodium chloride 0.9 % injection 3 mL 3 mL, intravenous, As needed, line care, Starting on Mon07/16/19 at 0859, Pre-Op, Prior to and following infusion and betw een multiple consecutive infusions: sodium chloride 0.9 % injection sodium chloride 0.9 % injection 3 mL 3 mL, intravenous, Every 12 hours scheduled, First dos e on Mon07/16/19 at 0900, Pre-Op, Peripheral Intravenous Catheter and Rapid Infu berta Catheter, when no infusion to maintain patency documented in this encounter Active and Recently Administered Medications Due to Daylight Saving Time, this section may contain times in both CDT and VIDEO PRODUCER. Scheduled Medication Order 07/14/2019 07/15/2019 07/16/2019 cyclopentolate 1 % ophthalmic solution 1 drop (CYCLOGYL) (COMPLE YANICK) 0945 (Given - Provider: Marlen Murphy R.N.)0950 (Given - Provider: Marlen Murphy R.N.)0954 (Given - Provider: Marlen Murphy R.N.) 1 drop, right eye, Every 5 min, First do se on Mon07/16/19 at 0900, For 3 doses, Pre-Op, in operative eye, Indications: Perioperative Mydriasis phenylephrine 2.5 % ophthalmic solution 1 drop (MYDFRIN) (COMPLE YANICK) 0945 (Given - Provider: Marlen Murphy R.N.)0950 (Given - Provider: Marlen Murphy R.N.)0955 (Given - Provider: Marlen Murphy R.N.) 1 drop, right eye, Every 5 min, First do se on Mon07/16/19 at 0900, For 3 doses, Pre-Op, in operative eye, Indications: Mydriasis sodium chloride 0.9 % injection 3 mL 0900 (Due) 3 mL, intravenous, Every 12 hours schedu led, First dose on Mon07/16/19 at 0900, Pre-Op, Peripheral Intravenous Catheter and Rapid Infusion Catheter, when no infusion to maintain patency Continuous Medication Order 07/14/2019 07/15/2019 07/16/2019 lactated ringers 0949 (New Bag - Provider: Jacquie Hager R.N.) 20 mL/hr, intravenous, at 20 mL/hr, Cont inuous, Starting Mon07/16/19 at 1045, Pre-Op PRN Medication Order 07/14/2019 07/15/2019 07/16/2019 acetaminophen tablet 650 mg (TYLENOL) 650 mg, oral, Once as needed, mild pain or score 1-3 of 10, moderate pain or score 4-6 of 10, Starting Mon07/16/19 at 1014, For 1 dose dextrose 40 % gel 15 g (GLUTOSE) 15 g, oral, As needed, low blood sugar, For glucose 51-70 mg/dL, Starting Mon07/16/19 at 0928, If patient is conscious and able to swallow safely and has a fuctioning gastrointestinal tract or on Acarbo se (Precose??) or Miglitol (Glyset??). May use tablets or gel. dextrose 50 % injection 12.5 g 0 932 (Given - Provider: Marlen Murphy R.N.)1001 (Given - Provider: Marlen Murphy R.N.) 12.5 g, intravenous, As needed, low bloo d sugar, For glucose 51-70 mg/dL, Starting Mon07/16/19 at 0928, If the patient has intravenous access available, is not able to take oral feeding safely, does not have a functioning gastrointestinal tra ct or feeding tube, or is NPO, administer D50W intravenously. dextrose 50 % injection 25 g 25 g, intravenous, As needed, low blood sugar, For glucose less than 50 mg/dL, Starting Mon07/16/19 at 0928, If intravenous access is available, administer D50W intravenously EPINEPHrine 0.5 mg in balanced salt solu tion 500 mL ophthalmic irrigation (CANCELED) 1016 (Given - Provid er: Bouchra Ta M.D.) As needed, Starting Mon07/16/19 at 1016, Intra-Op glucagon injection 1 mg (GlucaGen) 1 mg, subcutaneous, Once as needed, low blood sugar, For glucose 51-70 mg/dL, Starting Mon07/16/19 at 0928, For 1 dose, If patient is not able to take oral feeding safely, does not have a functioning ga strointestinal tract or feeding tube, or is NPO. Following treatment with Glucagon, a source of glucose should be started to maintain blood glucose level (e.g., patient should eat oral carbohydrates if allowed or perscriber should be contacte d to consider starting fluids containing dextrose) Glucagon may only be given once per hypoglycemia episode. glucagon injection 1 mg (GlucaGen) 1 mg, subcutaneous, Once as needed, low blood sugar, For glucose less than 50 mg/dL, Starting Mon07/16/19 at 0928, For 1 dose, If intravenous access not available and patient is not able to take oral fe eding safely, does not have a functionin g gastrointestinal tract or feeding tube. glucose chewable tablet 16 g 16 g, oral, As needed, low blood sugar, For glucose 51-70 mg/dL, Starting Mon07/16/19 at 0928, If patient is conscious and able to swallow safely and has a functioning gastrointestinal tract or on Acarb ose (Precose??) or Miglitol (Glyset??). Administer 4 tablets to total 16 grams. May use tablets or gel. lidocaine (PF) 0.75 mL, balanced salt so lution 2.25 mL, EPINEPHrine (PF) 1 mL 4 mL solution (SHUGARCAINE) (CANCELED) 101 6 (Given - Provider: Bouchra Ta M.D.) As needed, Starting Mon07/16/19 at 1016, Intra-Op midazolam (PF) injection (VERSED) (COMPLETED) 1010 (Given - Provider: Ann Marie Palmer R.N.) Code/trauma/sedation medication, Starting on Mon07/16/19 at 1010 moxifloxacin 0.5 % ophthalmic solution (VIGAMOX) (CANCELED) 1027 (Given - Provider: Bouchra Ta M.D.) As needed, Starting e 07/16/19 at 1027, Intra-Op naloxone injection 0.2 mg (NARCAN) 0.2 mg, intravenous, As needed, respirat ory depression, Starting e 07/16/19 at 1014, For respiratory rate less than 8 breaths per minute or RASS score of -3, - 4, -5. Apply oxygen to keep oxygen saturations greater than 90% and notify service. sodium chloride 0.9 % injection 10 mL 10 mL, intravenous, As needed, line care , Starting Mon07/16/19 at 0859, Pre-Op, Peripheral Intravenous Catheter and Rapid Infusion Catheter, prior to blood sampling, post blood transfusion or post blood sampling sodium chloride 0.9 % injection 3 mL 3 mL, intravenous, As needed, line care, Starting Mon07/16/19 at 0859, Pre-Op, Prior to and following infusion and between multiple consecutive infusions: sodium chloride 0.9 % injection tetracaine (PF) 0.5 % ophthalmic solution (ALTACAINE) (CANCELED) 1010 (Given - Provider: Bouchra Ta M.D.)1011 (Given - Provider: Bouchra Ta M.D.)1012 (Given - Provider: Bouchra Ta M.D.) As needed, Starting Mon07/16/19 at 1010, Intra-Op documented in this encounter Care Teams Float Nurse Relationship Specialty Start Date End Date Cathy Mccoy M.D. PCP - General 02/23/17 12/18/19 documented as of this encounter
--- OUTSIDE RECORDS SUMMARY | 2022-05-24 18:24 | XMS_ITS | Encounter Summary ---
:1945 Author Organization [facility] Address [address] [place] [address] Care Team Providers Name Role Phone Cathy Mccoy M.D. 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 How often do you attend mosque or More than 4 times per year 06/14/2019 jain services? Do you belong to any clubs or Yes 06/14/2019 organizations such as mosque groups, unions, fraternal or athletic groups, or [...] Sign Reading Time Taken Comments Blood Pressure 110/76 07/10/2019 10:21 AM CDT Pulse 64 07/10/2019 10:21 AM CDT Temperature 36.2 ??C (97.2 ??F) 07/10/2019 10:21 AM CDT Respiratory Rate 20 07/10/2019 10:21 AM CDT Oxygen Saturation - - Inhaled Oxygen Concentration - - Weight 109 kg (239 lb 6.7 oz) 07/10/2019 10:21 AM CDT Height 193 cm (6' 3.98) 07/10/2019 10:21 AM CDT Body Mass Index 29.16 07/10/2019 10:21 AM CDT documented in this encounter Progress Notes Cathy Mccoy M.D. - 07/10/2019 10:30 AM CDT SUBJECTIVE CHIEF COMPLAINT/REASON FOR VISIT Chief Complaint Patient presents with ??? Pre-op Exam cataracts, 07/16/19 and 07/[facility]/19, at [facility] HISTORY OF PRESENT ILLNESS Jorge Chance is a 74 y.o. male who presents at the request of Dr. Ta for cataract removal on 07/16/2019 and 07/30/2019 at [facility]. He had this schedule previously but was [...] times a day. ??? blood sugar diagnostic (UFOstart AGUCH ULTRA BLUE TEST STRIP) strips 5 test [...] TWO TIMES ADAY 100 each 4 ??? wswbbg-njfoqnmg-yfzzebl (CREON) 24,000-76,000-120,[address] capsule Take [...] Extremities: Without redness, swelling, or edema. Skin: [place], warm, dry and intact with no [...] Name Priority Date/Time Associated Diagnosis Comme nts CBC WITH Routine 07/10/2019 11:41 Preoperative Exam Result s for this DIFFERENTIAL, B AM CDT procedure ar e in the results section. BASIC METABOLIC Routine 07/10/2019 11:41 Hypertensive Heart Re sults for this PANEL, S/P AM CDT And Chronic Kidney procedure are in Disease Without Heart the re sults Failure And With section. Stage 3 (Moderate) Chronic Kidney Disease (HCC) documented in this encounter Results (ABNORMAL) CBC with Differential, Blood (07/10/2019 11:41 AM CDT) [facility] Method Time Signature Hemoglobin 15.4 13.2 - 07/10/2019 [facility] 16.6 g/dL 8:47 PM CDT Hematocrit 46.7 38.3 - 07/10/2019 [facility] 48.6 % 8:47 PM CDT Erythrocytes 4.49 4.35 - 07/10/2019 [facility] 5.65 8:47 PM CDT x10(12)/L MCV 104.0 (H) 78.2 - 07/10/2019 [facility] 97.9 fL 8:47 PM CDT RBC Distrib Width 13.2 11.8 - 07/10/2019 [facility] 14.5 % 8:47 PM CDT Platelet Count 178 135 - 317 07/10/2019 [facility] x10(9)/L 8:47 PM CDT Leukocytes 6.0 3.4 - 9.6 07/10/2019 [facility] x10(9)/L 8:47 PM CDT Neutrophils 3.27 1.56 - 07/10/2019 [facility] 6.45 8:47 PM CDT x10(9)/L Lymphocytes 1.93 0.95 - 07/10/2019 [facility] 3.07 8:47 PM CDT x10(9)/L Monocytes 0.65 0.26 - 07/10/2019 [facility] 0.81 8:47 PM CDT x10(9)/L Eosinophils 0.09 0.03 - 07/10/2019 [facility] 0.48 8:47 PM CDT x10(9)/L Basophils 0.02 0.01 - 07/10/2019 [facility] 0.08 8:47 PM CDT x10(9)/L Specimen Anatomical Collection Method Collection Time Receive d Time (Source) Location / / Volume Laterality Blood (Blood, 07/10/2019 11:41 07/10/2019 8:39 Venous) AM CDT PM CDT Cathy Mccoy M.D. LAB BLOOD ADD-ON Performing Organization Address City/State/ZIP Code Phon e Number [facility]- [address] [place] [phone] [place] [address] System [address] (ABNORMAL) BMP (Basic Metabolic Panel) (07/10/2019 11:41 AM CDT) P athologist Signature Potassium, S 4.8 3.6 - 5.2 07/10/2019 [facility] mmol/L 9:00 PM CDT Sodium, S 141 135 - 145 07/10/2019 [facility] mmol/L 9:00 PM CDT Chloride, S 106 98 - 107 07/10/2019 [facility] mmol/L 9:00 PM CDT Bicarbonate, S 22 22 - 29 07/10/2019 [facility] mmol/L 9:00 PM CDT Anion Gap 13 7 - 15 07/10/2019 [facility] 9:00 PM CDT BUN (Blood Urea 33 (H) 8 - 24 07/10/2019 [facility] Nitrogen), S mg/dL 9:00 PM CDT Creatinine 1.27 0.74 - 07/10/2019 [facility] 1.35 mg/dL 9:00 PM CDT eGFR-Non 55 (L) >=60 07/10/2019 [facility] Black/ mL/min/BSA 9:00 PM CDT [place] Comment: ----ADDITIONAL INFORMATION---- Estimated GFR calculated using the 2009 CKD_EPI creatinine equation. eGFR-Black/ 63 >=60 mL/min/BSA 2018 9:00 PM CDT [facility] Comment: ----ADDITIONAL INFORMATION---- Estimated GFR calculated using the 2009 CKD_EPI creatinine equation. Calcium, Total, S 9.6 8.8 - 10.2 mg/dL 07/10/2019 9:00 PM CDT [facility] Glucose, S 119 70 - 140 mg/dL 07/10/2019 9:00 PM CDT [facility] Specimen Anatomical Collection Method Collection Time Receive d Time (Source) Location / / Volume Laterality Blood (Blood, 07/10/2019 11:41 07/10/2019 8:39 Venous) AM CDT PM CDT Cathy Mccoy M.D. LAB BLOOD ADD-ON Performing Organization Address City/State/ZIP Code Phon e Number [facility]- [address] [place] [phone] [place] [address] System [address] documented in this encounter Visit Diagnoses Diagnosis Preoperative Exam - Primary Diabetes Mellitus Type 2 With Diabetic C hronic Kidney Disease Hyperglycemic (HCC) Hypertensive Heart And Chronic Kidney Di sease Without Heart Failure And With Stage 3 (Moderate) Chronic Kidney Disease (HCC) documented in this encounter Care Teams Stock Raiser Relationship Specialty Start Date End Date Cathy Mccoy M.D. PCP - General 02/23/17 12/18/19 documented as of this encounter
--- OUTSIDE RECORDS SUMMARY | 2022-05-24 18:24 | XMS_ITS | Encounter Summary ---
:1945 Author Organization [facility] Address [address] [place] [address] Care Team Providers Name Role Phone Cathy Mccoy M.D. Primary Care Provider Unavailable Reason for Visit Reason Onset Date Comments Diabetes 08/05/2019 DSMT Encounter Details Date Type Department Care Team Description 08/05/2019 Clinical Communication Department of [facility], Velma fontana (DSMT) Nutrition in [place], Trish, R.N. [address] [place] [phone] Social History Tobacco Use Types Packs/Day Years [...] or relatives? How often do you attend rastafari or More than 4 times per year 06/14/2019 adventism services? Do you belong to any clubs or Yes 06/14/2019 organizations such as rastafari groups, unions, fraternal or athletic groups, or [...] on filedocumented in this encounter Care Teams Knot Cutter Relationship Specialty Start Date End Date Cathy Mccoy M.D. PCP - General 02/23/17 12/18/19 documented as of this encounter
--- OUTSIDE RECORDS SUMMARY | 2022-05-24 18:24 | XMS_ITS | Encounter Summary ---
:1945 Author Organization [facility] Address [address] [place] [address] Care Team Providers Name Role Phone Cathy Mccoy M.D. Primary Care Provider Unavailable Encounter Details Date Type Department Care Team Description 06/26/2019 Hospital Encounter Department of Laboratory Diane patterson, Hyperkalemia Medicine in Cathy Wise M.D. [address] [address] Social History Tobacco Use Types Packs/Day Years [...] or relatives? How often do you attend confucianism or More than 4 times per year 06/14/2019 mormonism services? Do you belong to any clubs or Yes 06/14/2019 organizations such as confucianism groups, unions, fraternal or athletic groups, or [...] INJECTIONS TWO TIMES A 01/24 syringe DAY vqobni-mhdrzbvt-miqqdo Take 2 capsules by 180 capsule 03/1310/11/2019 e (CREON) mouth 3 (three) times 24,000-76,000-120,000 a day. Unit per DR capsuleIndications: Pancreatitis Chronic (HCC) metFORMIN XR Take 1 tablet (500 mg 90 tablet 2 10/24/2018 1 09/11/2018 (GLUCOPHAGE-XR) 500 mg total) by mouth daily. 24 hr tablet metoprolol tartrate TAKE 1/2 TABLET 90 tablet 3 06/21/2019 06/09/2020 (LOPRESSOR) 25 mg (12.5MG) BY MOUTH TWO tablet TIMES A DAY nitroglycerin Place 1 tablet (0.4 mg 25 tablet 0 12/19/2018 12/06/2019 (NITROSTAT) 0.4 mg SL total) under the tablet tongue every 5 (five) minutes as needed for chest pain. documented as of this encounter Miscellaneous Notes Result Encounter Note - Cathy Mccoy M.D. - 06/26/2019 9:30 AM CDT Discussed basic metabolic panel from 06/26/2019 and his potassium is now normal sodium is normal butchloride is high kidney function is much improved and glucose was improved also. He was told to decrease his insulin to 85 units as he was going low in the morning and I discussed bedtime snacks with him. documented in this encounter Plan of Treatment Not on filedocumented as of this encounter Procedures Procedure Name Priority Date/Time Associated Diagnosis Comme nts BASIC METABOLIC Routine 06/26/2019 9:47 AM Hyperkalemia Result s for this PANEL, S/P CDT procedure are i n the results section. documented in this encounter Results (ABNORMAL) BMP (Basic Metabolic Panel) (06/26/2019 9:47 AM CDT) P athologist Signature Potassium, S 4.2 3.6 - 5.2 06/26/2019 [facility] mmol/L 11:49 AM CDT Sodium, S 142 135 - 145 06/26/2019 [facility] mmol/L 11:49 AM CDT Chloride, S 114 (H) 98 - 107 06/26/2019 [facility] mmol/L 11:49 AM CDT Bicarbonate, S 17 (L) 22 - 29 06/26/2019 [facility] mmol/L 11:49 AM CDT Anion Gap 11 7 - 15 06/26/2019 [facility] 11:49 AM CDT BUN (Blood Urea 29 (H) 8 - 24 06/26/2019 [facility] Nitrogen), S mg/dL 11:49 AM CDT Creatinine 1.19 0.74 - 06/26/2019 [facility] 1.35 mg/dL 11:49 AM CDT eGFR-Non 59 (L) >=60 06/26/2019 [facility] Black/ mL/min/BSA 11:49 AM CDT [place] Comment: ----ADDITIONAL INFORMATION---- Estimated GFR calculated using the 2009 CKD_EPI creatinine equation. eGFR-Black/ 69 >=60 mL/min/BSA 2018 11:49 AM CDT [facility] Comment: ----ADDITIONAL INFORMATION---- Estimated GFR calculated using the 2009 CKD_EPI creatinine equation. Calcium, Total, S 9.3 8.8 - 10.2 mg/dL 06/26/2019 11:4 9 AM CDT [facility] Glucose, S 129 70 - 140 mg/dL 06/26/2019 11:49 AM CDT [facility] Specimen Anatomical Collection Method Collection Time Receive d Time (Source) Location / / Volume Laterality Blood (Blood, 06/26/2019 9:47 AM 06/26/20 9:48 Venous) CDT AM CDT Cathy Mccoy M.D. LAB BLOOD ADD-ON Performing Organization Address City/State/ZIP Code Phon e Number [facility]- [address] [place] [phone] [facility] [place] [address] System [address] documented in this encounter Visit Diagnoses Diagnosis Hyperkalemia documented in this encounter Care Teams Diesel Engine Erector Relationship Specialty Start Date End Date Cathy Mccoy M.D. PCP - General 02/23/17 12/18/19 documented as of this encounter
--- OUTSIDE RECORDS SUMMARY | 2022-05-24 18:24 | XMS_ITS | Encounter Summary ---
:1945 Author Organization [facility] Address [address] [place] [address] Care Team Providers Name Role Phone Cathy Mccoy M.D. Primary Care Provider Unavailable Reason for Referral Outpatient (Routine) - Closed Specialty Diagnoses / Procedures Referred By Contact Refer red To Contact Nutrition Diagnoses fu Cathy Mccoy M.D. [address] [address] Referral ID Status Reason Start Date Expiration Date Visits Requ ested Visits Authorized [id number] Closed 06/26/2019 06/25/2020 1 1 Reason for Visit Outpatient (Routine) - Closed Specialty Diagnoses / Procedures Referred By Contact Refer red To Contact Cathy Adams M.D. [address] [address] Referral ID Status Reason Start Date Expiration Date Visits Requ ested Visits Authorized [id number] Closed 06/10/2019 06/09/2020 1 1 Encounter Details Date Type Department Care Team Description 06/26/2019 Clinical Support Department of Cathy Mccoy M .D. Diabetes Mellitus Type Nutrition in Aly Wise, Velma Chambers RKamilaNKamila [address] [place] [address] 2 With Diabetic [place] Chronic Kidney Disease [address] [facility] (HCC) [place], [place] (Primary Dx) [phone] Social History Tobacco Use [...] or relatives? How often do you attend anglican or More than 4 times per year 06/14/2019 spiritism services? Do you belong to any clubs or Yes 06/14/2019 organizations such as anglican groups, unions, fraternal or athletic groups, or [...] PM CDT documented as of this encounter Patient Instructions Patient InstructionsSchVelma an R.N., Alexa - 06/26/2019 10:15 AM CDT Reduce evening dose of insulin from 91 to 86 U; Take about about 10-15 before supper. Test blood sugar right before you take the evening insulin. Test 3-4 hours after supper before bedtime snack. Use a notebook to keep track of blood sugars and times, and meals if you can, after you return from your travels. documented in this encounter Progress Notes Velma Lu R.N., Bruce. - 06/26/2019 10:15 AM CDT REASON FOR VISIT Diabetes Education Referred by: Cathy Mccoy M.D. HISTORY OF PRESENT ILLNESS Jorge attends with his Elham to share blood sugars from the last couple weeks. He has his One Touch meter that is one of the earlier models. Jorge believes it is working fine and is not interestedin a new meter. 06/17/19-06/26/19 Fast noon acsup Hs 115 125 80 84 112 208 70 216 79 180 63 228 303 73 97 82 264 50 236 371 151 189 111 Jorge is moving his injection site daily and preparing the cloudy insulin correctly. Meter was tested against clinic meter, 15% difference. Elham explains that they are making diet changes to reduce the K+ in Jorge's diet thus they have eliminated potatoes and all melons. Both foods that had enjoyed daily. They are having more pasta and rice instead. Some of the HS readings may have followed an Hs snack but Jorge could not confirm that for sure. Elham shares that Jorge might get up in the middle of the night and grab something to eat Jorge agreed which may drive the fasting blood sugar up. He does not recall s/s of low blood sugar being the reason he gets up in the middle of the night. He did not feel hypoglycemic at 63, but he did feel funny at 50, noting my balance was off. Plan: Reduce the evening dose of Humalog 75/25 from 91 to 86 U due to hypoglycemia unawareness. Check HS blood sugar before the evening snack. Return before Thanks to review blood sugars. Napoleon send notes of concern via portal in the meantime. OBJECTIVE Pertinent Labs: Lab Results Component Value [...] 10/12/2016 Lab Results Component Value Date CREATININE 1.19 06/26/2019 CREATININE 1.44 (H) 06/14/2019 CREATININE 1.44 (H) 06/05/2019 Lab Results Component Value Date EGFR 59 (L) 06/26/2019 EGFR 47 (L) 06/14/2019 EGFR 47 (L) 06/05/2019 ASSESSMENT CDE identified patient knowledge gaps or diabetes skills that patient needs education/training on asthe following: Review s/s of low blood sugar and tx of; the importance of preventing acute complications; encouraged to test blood sugars before evening snack; limit nocturnal snacking; low K+ options to take the place of his potatoes; Patient Education Provided: Yes, patient education was provided, refer to the patients education record. Evaluation of Learning: Barriers that were noted at education session and how addressed: No barriers to learning noted. Patient's response to learning completed today: I learned that we need to continue to experiment with the foods that we are able to eat. I will reduce my insulin to 86 U before supper and take blood sugar before my snack. Will need further education on the following: blood sugar follow up in one month. Medication Changes: Yes, Medication recommendations: Reduce ac supper dose to 86 U PLAN The patient has the following support and personal plans for managing their diabetes: Goal #1: I will check my blood sugar 3 times per day, fasting pre and post supper. I will bring my log to Velma in 2 weeks. DMPLAN: To see roaster operator face to face (visit) in One month documented in this encounter Plan of Treatment Scheduled Referrals Name Type Priority Associated Diagnoses Order S [facility] Nutrition office Outpatient Referral Routine Expe cted: visit (clinic) 08/05/2019 (Approximate), Expires: 06/26/2022 documented as of this encounter Visit Diagnoses Diagnosis Diabetes Mellitus Type 2 With Diabetic C hronic Kidney Disease Hyperglycemic (HCC) - Primary documented in this encounter Care Teams Component Engineer Relationship Specialty Start Date End Date Cathy Mccoy M.D. PCP - General 02/23/17 12/18/19 documented as of this encounter
--- OUTSIDE RECORDS SUMMARY | 2022-05-24 18:24 | XMS_ITS | Encounter Summary ---
:1945 Author Organization [facility] Address [address] [place] [address] Care Team Providers Name Role Phone Cathy Mccoy M.D. Primary Care Provider Unavailable Reason for Visit Auth/Cert Specialty Diagnoses / Procedures Referred By Contact Refer red To Contact Diagnoses Cataract Procedures [place] RMVL CATARACT EXTRACAP CMPLX PHACOEMULSIFICATION CATARACT WITH INTRAOCULAR LENS IMPLANTATION Referral ID Status Reason Start Date Expiration Date Visits Requ ested Visits Authorized [id number] 1 1 Encounter Details Date Type Department Care Team Description 07/30/2019 Hospital Encounter [facility] OR Bouchra Ta, [address] [place] [address] 2009 [facility] [phone] [place] [phone] (Wo rk) Social History Tobacco Use Types [...] or relatives? How often do you attend shinto or More than 4 times per year 06/14/2019 catholic services? Do you belong to any clubs or Yes 06/14/2019 organizations such as shinto groups, unions, fraternal or athletic groups, or [...] Sign Reading Time Taken Comments Blood Pressure 151/87 07/30/2019 9:41 AM RELOCATION SERVICES SPECIALIST Pulse 62 07/30/2019 9:41 AM RELOCATION SERVICES SPECIALIST Temperature 36.8 ??C (98.2 ??F) 07/30/2019 9:41 AM RELOCATION SERVICES SPECIALIST Respiratory Rate 18 07/30/2019 9:41 AM RELOCATION SERVICES SPECIALIST Oxygen Saturation 98% 07/30/2019 9:41 AM RELOCATION SERVICES SPECIALIST Inhaled Oxygen Concentration - - Weight 111 kg (244 lb 7.8 oz) 07/30/2019 8:19 AM RELOCATION SERVICES SPECIALIST Height - - Body Mass Index 29.77 07/10/2019 10:21 AM CDT documented in this encounter Discharge Instructions Discharge InstructionsKaitlynn Franco R.N. - 07/30/2019 9:32 AM CST Images from the original note were not [...] In addition, because you were given: ?? Monitored anesthesia care (MAC) with local..you may have: Numbness in the affected area. Until the numbness wears off, you will not be able to feel heat, cold, or pressure like normal. Protect the extremity from these sensations. Notify your physician if you have numbness or tingling that lasts longer than 24 hours. This material is for your education and information only. This content does not replace medical advice, diagnosis or treatment. New medical research may change this information. If you have questions about a medical condition, always talk with your health care provider. Cataract Surgery ?? No lifting, bending, straining or eye rubbing. Keep head up. ?? If you should develop severe eye pain or headache pain call your doctor. ?? Give drops today as directed by physician. (all 3 drops today, 3 more times) [facility] [phone] CATION SERVICES SPECIALIST documented in this encounter Medications at Time [...] by mouth 2 (two) times a day. HUMALOG MIX INJECT 90 UNITS UNDER 60 mL 11 07/29/2019 75-25,U-100,INSULN 100 THE SKIN TWICE A DAY unit/mL (75-25) injection insulin lispro 91 U before breakfast; 80 [...] 5 times a day. ICD 10: E11.22 zpgald-klnjclzb-bshmvh Take 2 capsules by 180 capsule 11 [...] encounter H&P Notes Bouchra Ta M.D. - 07/30/2019 8:33 AM CST INTERVAL HISTORY AND PHYSICAL PRE-PROCEDURE UPDATE H&P reviewed. The patient was examined and there are no significant changes to the H&P. Bouchra Ta M.D. CATION SERVICES SPECIALIST Source Note - Cathy Mccoy M.D. - 07/10/2019 10:30 AM CDT SUBJECTIVE CHIEF COMPLAINT/REASON FOR VISIT Chief Complaint Patient presents with ??? Pre-op Exam cataracts, 07/16/19 and 07/30/19, at [email or web address] HISTORY OF PRESENT ILLNESS Jorge Chance is a 74 y.o. male who presents at the request of Dr. Ta for cataract removal on 07/16/2019 and 07/30/2019 at [facility]. He had this schedule previously but was [...] times a day. ??? blood sugar diagnostic (Affirmed NetworksUCH ULTRA BLUE TEST STRIP) strips 5 test [...] TWO TIMES ADAY 100 each 4 ??? pvhrww-tlgfhbul-adjyshs (CREON) 24,000-76,000-120,[address] capsule Take [...] Extremities: Without redness, swelling, or edema. Skin: [place], warm, dry and intact with no rashes [...] Op Note - Bouchra Ta M.D. - 07/30/2019 9:23 AM CST FULL OP NOTE Procedure(s) (LRB): PHACOEMULSIFICATION CATARACT WITH INTRAOCULAR LENS IMPLANTATION (Left) Surgeon(s) and Role: * Bouchra Ta M.D. - Primary Anesthesia Type Moderate sedation (rn) Pre-operative Diagnosis Cataract Visually significant nuclear sclerotic cataract of the left eye Post-operative Diagnosis Pseudophakia, Left eye Findings As expected. Complications None Description [...] Implant Name Type Inv. Item Serial No. Security Services Specialist Lot No. LRB No. Used LENS ULT [id number] ANT +18.0D - SN/A - [id number] Ocular Lens LENS ULT [id number] ANT +18.0D N/A [employer] [id number] Left 1 Bouchra Ta M.D. CATION SERVICES SPECIALIST documented in this encounter Plan of Treatment Not on filedocumented as of this encounter Procedures Procedure Name Priority Date/Time Associated Comments Diagnosis PHACOEMULSIFICATION CATARACT 07/30/2019 9:[address] WITH INTRAOCULAR LENS RELOCATION SERVICES SPECIALIST IMPLANTATION Special Needs Epishugarcaine GLUCOSE POCT, B Routine 07/30/2019 8:38 AM RELOCATION SERVICES SPECIALIST Re sults for this procedure are in the results sec tion. documented in this encounter Results (ABNORMAL) Glucose, POCT (07/30/2019 8:38 AM RELOCATION SERVICES SPECIALIST) athologist Signature Glucose, POCT, 189 (H) 70 - 140 07/30/2019 MKTO B mg/dL 8:38 AM RELOCATION SERVICES SPECIALIST Specimen Anatomical Collection Method Collection Time Receive d Time (Source) Location / / Volume Laterality Blood 07/30/2019 8:38 AM 9 8:45 RELOCATION SERVICES SPECIALIST AM RELOCATION SERVICES SPECIALIST Generic [facility] LAB POCT ORDERABLES-MANUAL Performing Organization Address City/State/ZIP Code Phon e Number [facility]- [address] [place] [address] [place] [address] [facility] [place] [address] [place] [address] documented in this encounter Visit Diagnoses Not on filedocumented in this encounter Administered Medications Inactive Administered Medications - up to 3 most recent administrations Medication Order MAR Action Action Date Dose Rate Site cyclopentolate 1 % ophthalmic Given 07/30/2019 8:46 AM RELOCATION SERVICES SPECIALIST 1 juliette p solution 1 drop (CYCLOGYL) 1 drop, left eye, Every 5 min, First dose on Mon07/30/19 at 0815, For 3 doses, Pre-Op, in operative eye Given 07/30/2019 8:39 AM RELOCATION SERVICES SPECIALIST 1 drop Given 07/30/2019 8:32 AM RELOCATION SERVICES SPECIALIST 1 drop lactated ringers New Bag 07/30/2019 8:47 AM RELOCATION SERVICES SPECIALIST 20 mL/hr 20 mL/hr 20 mL/hr, intravenous, Continuous, Starting on Mon07/30/19 at 0815, Pre-Op midazolam (PF) injection (VERSED) Given 07/30/2019 9:18 AM RELOCATION SERVICES SPECIALIST 0.5 mg Code/trauma/sedation medication, Starting on Mon07/30/19 at 0918 phenylephrine 2.5 % ophthalmic solution 1 Given 07/30/2019 8:46 AM RELOCATION SERVICES SPECIALIST 1 drop drop (MYDFRIN) 1 drop, left eye, Every 5 min, First dose on Mon07/30/19 at 0815, For 3 doses, Pre-Op, in operative eye Given 07/30/2019 8:39 AM RELOCATION SERVICES SPECIALIST 1 drop Given 07/30/2019 8:32 AM RELOCATION SERVICES SPECIALIST 1 drop sodium chloride 0.9 % injection 10 mL 10 mL, intravenous, As needed, line care , Starting on Mon07/30/19 at 0805, Pre-Op, Peripheral Intravenous Catheter and Rapid Infusion Cat heter, prior to blood sampling, post blood transfusion or post blood samplin g sodium chloride 0.9 % injection 3 mL 3 mL, intravenous, As needed, line care, Starting on Mon07/30/19 at 0805, Pre-Op, Prior to and following infusion and betw een multiple consecutive infusions: sodium chloride 0.9 % injection sodium chloride 0.9 % injection 3 mL 3 mL, intravenous, Every 12 hours schedu led, First dose on Mon07/30/19 at 0900, Pre-Op, Peripheral Intravenous Catheter and Rapid Infu berta Catheter, when no infusion to maintain patency documented in this encounter Active and Recently Administered Medications Times are shown in RELOCATION SERVICES SPECIALIST. Scheduled Medication Order 07/28/2019 07/29/2019 07/30/2019 cyclopentolate 1 % ophthalmic solution 1 drop (CYCLOGYL) (COMPLE YANICK) 0832 (Given - Provider: Jacquie Hager RPilar.)0839 (Given - Provider: Jacquie Hager R.N.)0846 (Given - Provider: Heena PedroN.) 1 drop, left eye, Every 5 min, First dos e on Mon07/30/19 at 0815, For 3 doses, Pre-Op, in operative eye phenylephrine 2.5 % ophthalmic solution 1 drop (MYDFRIN) (COMPLE YNAICK) 0832 (Given - Provider: Jacqueline Pedro.N.)0839 (Given - Provider: Jacqueline Pedro.N.)0846 (Given - Provider: Heena PedroN.) 1 drop, left eye, Every 5 min, First dos e on Mon07/30/19 at 0815, For 3 doses, Pre-Op, in operative eye sodium chloride 0.9 % injection 3 mL 0900 (Due) 3 mL, intravenous, Every 12 hours schedu led, First dose on Mon07/30/19 at 0900, Pre-Op, Peripheral Intravenous Catheter and Rapid Infusion Catheter, when no infusion to maintain patency Continuous Medication Order 07/28/2019 07/29/2019 07/30/2019 lactated ringers 0847 (New Bag - Provider: Jacquie Hager RKamilaNKamila) 20 mL/hr, intravenous, at 20 mL/hr, Cont inuous, Starting Mon07/30/19 at 0815, Pre-Op PRN Medication Order 07/28/2019 07/29/2019 07/30/2019 EPINEPHrine 0.5 mg in balanced salt solu tion 500 mL ophthalmic irrigation (CANCELED) 0930 (Given - Provid er: Bouchra Ta M.D.) As needed, Starting Mon07/30/19 at 0930, Intra-Op lidocaine (PF) 0.75 mL, balanced salt so lution 2.25 mL, EPINEPHrine (PF) 1 mL 4 mL solution (SHUGARCAINE) (CANCELED) 092 9 (Given - Provider: Bouchra Ta M.D.) As needed, Starting Mon07/30/19 at 0929, Intra-Op midazolam (PF) injection (VERSED) (COMPLETED) 0918 (Given - Provider: Joanne Jama R.N.) Code/trauma/sedation medication, Starting on Mon07/30/19 at 091 8 moxifloxacin 0.5 % ophthalmic solution (VIGAMOX) (CANCELED) 0929 (Given - Provider: Bouchra Ta M.D.) As needed, Starting Mon07/30/19 at 0929, Intra-Op sodium chloride 0.9 % injection 10 mL 10 mL, intravenous, As needed, line care , Starting Mon07/30/19 at 0805, Pre-Op, Peripheral Intravenous Catheter and Rapid Infusion Catheter, prior to blood sampling, post blood transfusion or post blood sampling sodium chloride 0.9 % injection 3 mL 3 mL, intravenous, As needed, line care, Starting Mon07/30/19 at 0805, Pre-Op, Prior to and following infusion and between multiple consecutive infusions: sodium chloride 0.9 % injection tetracaine (PF) 0.5 % ophthalmic solution (ALTACAINE) (CANCELED) 0915 (Given - Provider: Bouchra Ta M.D.)0916 (Given - Provider: Bouchra Ta M.D.)0917 (Given - Provider: [facility] Ta M.D.) As needed, Starting Mon07/30/19 at 0915, Intra-Op documented in this encounter Care Teams Continuous Improvement Facilitator Relationship Specialty Start Date End Date Cathy Mccoy M.D. PCP - General 02/23/17 12/18/19 documented as of this encounter
--- OUTSIDE RECORDS SUMMARY | 2022-05-24 18:24 | XMS_ITS | Encounter Summary ---
:1945 Author Organization [facility] Address [address] [place] [address] Care Team Providers Name Role Phone Cathy Mccoy M.D. Primary Care Provider Unavailable Reason for Visit Reason Onset Date Comments Sign 07/10 pre-op note 07/12/2019 Encounter Details Date Type Department Care Team Description 07/12/2019 Clinical Department of [facility], Sign 07/10 pre -op Communication Anesthesiology in Cintia Schmid R.N. note [place], [place] [address] [place] [address] [address] [place] [phone] Social History Tobacco Use Types Packs/Day Years [...] or relatives? How often do you attend roman catholic or More than 4 times per year 06/14/2019 sikhism services? Do you belong to any clubs or Yes 06/14/2019 organizations such as roman catholic groups, unions, fraternal or athletic groups, or [...] this encounter Miscellaneous Notes Telephone Encounter - Cathy Mccoy M.D. - 07/12/2019 3:43 PM CDT This is been down Telephone Encounter - Venus Jones L.P.N. - 07/12/2019 9:56 AM CDT This was sent to [facility]. Telephone Encounter - Cintia Wren R.N. - 07/12/2019 9:40 AM CDT Tico Mccoy and team, Patient is scheduled for surgery on 07/16 & 07/30 (cataracts). Please complete and sign your H&P note from 07/10. Thank you, FERNANDO Chamberlain Pre-op Material Specialist documented in this encounter Plan of Treatment Not on filedocumented as of this encounter Visit Diagnoses Not on filedocumented in this encounter Care Teams Guest Service Supervisor Relationship Specialty Start Date End Date Cathy Mccoy M.D. PCP - General 02/23/17 12/18/19 documented as of this encounter
--- OUTSIDE RECORDS SUMMARY | 2022-05-24 18:24 | XMS_ITS | Encounter Summary ---
:1945 Author Organization [facility] Address [address] [place] [address] Care Team Providers Name Role Phone Cathy Mccoy M.D. Primary Care Provider Unavailable Reason for Visit Reason Comments Other elevated potassium and gluco se readings Appointment Request (Routine) - Closed Specialty Diagnoses / Procedures Referred By Contact Refer red To Contact Family Medicine Referral ID Status Reason Start Date Expiration Date Visits Requ ested Visits Authorized [id number] Closed 06/12/2019 06/11/2020 1 1 Encounter Details Date Type Department Care Team Description 06/14/2019 Office Visit Department of Family Camilla Mccoy (Primary Medicine in [place]) [facility] [address] [place] [address] Social History Tobacco Use Types Packs/Day Years [...] Sign Reading Time Taken Comments Blood Pressure 122/78 06/14/2019 3:35 PM CDT Pulse 62 06/14/2019 3:35 PM CDT Temperature 36.2 ??C (97.2 ??F) 06/14/2019 3:35 PM CDT Respiratory Rate 18 06/14/2019 3:35 PM CDT Oxygen Saturation - - Inhaled Oxygen Concentration - - Weight 111 kg (244 lb 7.8 oz) 06/14/2019 3:35 PM CDT Height 193 cm (6' 3.98) 06/14/2019 3:35 PM CDT Body Mass Index 29.77 06/14/2019 3:35 PM CDT documented in this encounter Progress Notes Cathy Mccoy M.D. - 06/14/2019 3:00 PM CDT SUBJECTIVE CHIEF COMPLAINT/REASON FOR VISIT Chief Complaint Patient presents with ??? Other elevated potassium and glucose readings HISTORY OF PRESENT ILLNESS Jorge Chance is a 74 y.o. male who presents because he has been having elevated potassium levels and he is trying to get ready for a surgery for cataracts. We gave him Kayexalate 1 dose and heis here to get Rechecked. We also had a long discussion about what should be a normal potassium intake and they are going to try to really pay attention to the diet so he does not get added potassium. His kidney function is somewhat low with a GFR 47, but I do not think it is low enough to cause the chronic hyperkalemia. He has been taken off Doug inhibitors and metformin due to this when his potassium was 6.5 earlier this year. We also advised him to hydrate himself well and he does admit that he does not drink as much as he probably should. He does mention that since taking the Kayexalate he did not have crampy feelings in his calf and hips like he has previously. He did talk to nutrition and he has a list of high potassium foods to avoid. We did tell him that normal potassium amount would be 4700 mg per day but he should shoe for less than that since his kidney function is not normal. REVIEW OF SYSTEMS Answers for HPI/ROS submitted by the patient on 06/14/2019 Fatigue: Yes Visual problems: Yes No ENT issues: Yes Pain in the calf muscles when walking: Yes Shortness of breath: Yes Coughing up mucus (phlegm): Yes Abdominal (belly) pain or cramping: Yes Diarrhea: Yes Muscle pain/stiffness: Yes Pain or stiffness in the joints: Yes Skin rash: Yes Headache: Yes Light-headedness: Yes Numbness or shooting pain in hands, arms, legs or feet: Yes Weakness in arms and/or legs: Yes Loss of balance or tendency to fall easily: Yes Loud snoring: Yes Stop breathing, choking, or gasping while asleep: Yes No blood/lymph issues: Yes Difficulty urinating: Yes Erectile dysfunction: Yes MEDICAL HISTORY Patient Active Problem List Diagnosis ??? Family History Coronary Artery Disease ??? Hypertension Benign Renovascular ??? Pancreatitis Chronic (HCC) ??? Coronary Artery [...] times a day before breakfast and dinner. 60 mL 3 ??? insulin syringe-needle U-100 1 mL 31 gauge x 5/16 syringe USE FOR INSULIN INJECTIONS TWO TIMES ADAY 100 each 4 ??? hyvtew-afidorbm-lbiecnw (CREON) 24,000-76,000-120,[address] capsule Take 2 capsules by mouth 3 (three) times a day. 180 capsule 11 ??? metFORMIN XR (GLUCOPHAGE-XR) 500 mg 24 hr tablet Take 1 tablet (500 mg total) by mouth daily. 90tablet 2 ??? metoprolol tartrate (LOPRESSOR) 25 mg tablet Take 0.5 tablets (12.5 mg total) by mouth 2 (two) times a day. 90 tablet 3 ??? nitroglycerin (NITROSTAT) 0.4 [...] a day as needed. OBJECTIVE VITAL SIGNS BP 122/78 (BP Location: Left arm, Patient Position: Sitting, Cuff Size: Regular) Pulse 62 Temp 36.2 ??C Resp 18 Ht 193 cm Wt 111 kg BMI 29.77 kg/m?? PHYSICAL EXAMINATION General: Alert, in no apparent distress, nontoxic appearing. Mood and affect were appropriate to thesituation. Heart: S1, S2 with no significant murmurs, rubs or gallops. Regular rate and rhythm. Lungs: Breath sounds were clear throughout bilaterally. Respirations were regular, nonlabored. DIAGNOSTICS Recent Results (from the past 72 hour(s)) BMP (Basic Metabolic Panel) Collection Time: 06/14/19 4:25 PM Result Value Potassium, S 4.5 Sodium, S 143 Chloride, S 107 Bicarbonate, S 22 Anion Gap 14 Bld Urea Nitrog(BUN), S 40 (H) Creatinine, S 1.44 (H) eGFR-Non Black 47 (L) eGFR-Black 55 (L) Calcium, Total, S 9.4 Glucose, S 156 (H) ASSESSMENT / PLAN #1 Hyperkalemia We checked a basic metabolic panel today and as noted above his potassium was 4.5 which is normal. Were going to recheck in about 10 days which is prior to his cataract surgery preop to see if the dietis helping to keep his potassium lower. Otherwise we could start a diuretic but he really does not have a lot of edema problems. - BMP (Basic Metabolic Panel) - BMP (Basic Metabolic Panel); Future; Expected date: 06/26/2019 ADMINISTRATIVE BILLING Total time spent 25 minutes, 20 minutes spent in counseling and coordination of care. documented in this encounter Miscellaneous Notes Result Encounter Note - Cathy Mccoy M.D. - 06/14/2019 3:00 PM CDT Discussed labs with patient and his documented in this encounter Plan of Treatment Not on filedocumented as of this encounter Procedures Procedure Name Priority Date/Time Associated Diagnosis Comme nts BASIC METABOLIC Routine 06/14/2019 4:25 PM Hyperkalemia Result s for this PANEL, S/P [...] 06/26/2019 [facility] Black/ mL/min/BSA 11:49 AM CDT [place] Comment: ----ADDITIONAL INFORMATION---- Estimated GFR calculated using [...] Organization Address City/State/ZIP Code Phon e Number [facility]- [address] [place] [address] [address] [place] [place] [address] [address] (ABNORMAL) BMP (Basic Metabolic Panel) (06/14/2019 4:25 PM CDT) Analysis Performed At Patho logist Time Signature Potassium, S 4.5 3.6 - 5.2 06/14/2019 mmol/L 8:47 PM CDT Sodium, S 143 135 - 145 06/14/2019 mmol/L 8:47 PM CDT Chloride, S 107 98 - 107 06/14/2019 mmol/L 8:47 PM CDT Bicarbonate, S 22 22 - 29 06/14/2019 mmol/L 8:47 PM CDT Anion Gap 14 7 - 15 06/14/2019 8:47 PM CDT BUN (Blood Urea 40 (H) 8 - 24 06/14/2019 Nitrogen), S mg/dL 8:47 PM CDT Creatinine 1.44 (H) 0.74 - 06/14/2019 1.35 mg/dL 8:47 PM CDT eGFR-Non 47 (L) >=60 06/14/2019 Black/ mL/min/BSA 8:47 PM CDT [place] Comment: ----ADDITIONAL INFORMATION---- Estimated GFR calculated using the 2009 CKD_EPI creatinine equation. eGFR-Black/ 55 (L) >=60 mL/min/BSA 2018 8:47 PM CDT Comment: ----ADDITIONAL INFORMATION---- Estimated GFR calculated using the 2009 CKD_EPI creatinine equation. Calcium, Total, S 9.4 8.8 - 10.2 mg/dL 06/14/2019 8:47 PM CDT Glucose, S 156 (H) 70 - 140 mg/dL 06/14/2019 8:47 PM CDT Specimen Anatomical Collection Method Collection Time Receive d Time (Source) Location / / Volume Laterality Blood (Blood, 06/14/2019 4:25 PM 06/14/20 19 8:16 Venous) CDT PM CDT Cathy Mccoy M.D. LAB BLOOD ADD-ON Performing Organization Address City/State/ZIP Code Phon e Number [facility]- [address] [place] [address], [place] [address] [facility] documented in this encounter Visit Diagnoses Diagnosis Hyperkalemia - Primary documented in this encounter Care Teams Cougar Hunter Relationship Specialty Start Date End Date Cathy Mccoy M.D. PCP - General 02/23/17 12/18/19 documented as of this encounter
--- OUTSIDE RECORDS SUMMARY | 2022-05-24 18:24 | XMS_ITS | Encounter Summary ---
:1945 Author Organization [facility] Address [address] [place] [address] Care Team Providers Name Role Phone Cathy Mccoy M.D. Primary Care Provider Unavailable Reason for Visit Reason Comments Med Refill Encounter Details Date Type Department Care Team Description 07/26/2019 Refill Department of Family Medicine Cathy Mccoy Med Refill in [facility] [place] [address] [place] [address] Social History Tobacco Use [...] or relatives? How often do you attend buddhism or More than 4 times per year 06/14/2019 anglican services? Do you belong to any clubs or Yes 06/14/2019 organizations such as buddhism groups, unions, fraternal or athletic groups, or [...] Telephone Encounter - Ofelia Montelongo L.P.N. - 07/29/2019 9:00 AM SHRIMP PACKER Last visit with you 07/10/19. MP PACKER documented in this encounter Plan of Treatment Not on filedocumented as of this encounter Visit Diagnoses Not on filedocumented in this encounter Care Teams Expansion Joint Builder Relationship Specialty Start Date End Date Cathy Mccoy M.D. PCP - General 02/23/17 12/18/19 documented as of this encounter
--- OUTSIDE RECORDS SUMMARY | 2022-05-24 18:24 | XMS_ITS | Encounter Summary ---
:1945 Author Organization [facility] Address [address] [place] [address] Care Team Providers Name Role Phone Cathy Mccoy M.D. Primary Care Provider Unavailable Encounter Details Date Type Department Care Team Description 07/15/2019 Clinical Communication Department of Family Diane patterson, Medicine in [place] [address] [place] [address] Social History Tobacco Use Types [...] or relatives? How often do you attend anabaptism or More than 4 times per year 06/14/2019 jainism services? Do you belong to any clubs or Yes 06/14/2019 organizations such as anabaptism groups, unions, fraternal or athletic groups, or [...] Notes Telephone Encounter - Allyssa Taylor - 07/15/2019 9:53 AM CST Per office dictation from visit with Dr. Mccoy on 07/10/19: #1 Preoperative Exam We are checking a [...] is cleared for surgery in outpatient venue. Spoke with patient on phone. He states he received call from [facility] today re: his surgery. He states the nurse he spoke with answered all of his medication questions/concerns. He has no further questions at this time. He read back his notes re: medications correctly, as dictated by Dr. Mccoy. TION DESCRIPTION MANAGER Telephone Encounter - Margaret Simmons - 07/15/2019 9:15 AM CST Please do not reply to sender,emails are not monitored. Thank you. If you need a prescription refill please call your pharmacy. Please allow 3 business days for processing. Expert RN: Declined Call Center Template: ??? May we leave a message for you on this phone? yes What can I help you with today? Patient's called re: insulin. Caller states that patient is having cataract surgery tomorrow and needs to be NPO after midnight tonight. Caller would like a call back from Dr. Mccoy re: theamount of insulin that patient is supposed to take tomorrow morning, along with which mediations to t lawrence and which not to. Please call patient back as soon as possible. Thank you. I will send this information to the appropriate staff member who will look into your concern. Is there anything else I can help you with today? Thank you for calling [facility]. TION DESCRIPTION MANAGER documented in this encounter Plan of Treatment Not on filedocumented as of this encounter Visit Diagnoses Not on filedocumented in this encounter Care Teams Microbiology Laboratory Manager Relationship Specialty Start Date End Date Cathy Mccoy M.D. PCP - General 02/23/17 12/18/19 documented as of this encounter
--- OUTSIDE RECORDS SUMMARY | 2022-05-24 18:24 | XMS_ITS | Encounter Summary ---
:1945 Author Organization [facility] Address [address] [place] [address] Care Team Providers Name Role Phone Cathy Mccoy M.D. Primary Care Provider Unavailable Reason for Visit Physical Therapy (Routine) - Canceled Specialty Diagnoses / Procedures Referred By Contact Refer red To Contact Diagnoses Pain Leg Left [facility] [place] [facility] Procedures PT Ongoing treatment [address] [place] [address] Referral ID Status Reason Start Date Expiration Date Visits V isits Requested Authorized [id number] Canceled 05/23/2019 09/10/2019 99 19 Encounter Details Date Type Department Care Team Description 06/06/2019 Clinical Support Department of Physical Mike Holbrook M.D. [address] [place] [address] Pain Leg Left Kassidy and Benja Brown, PKamilaTKamila [address] [place] [address] Rehabilitation in [place], [place] [address] [place] [address] Social History Tobacco Use Types Packs/Day Years [...] documented as of this encounter Progress Notes Benja Brown, P.T. - 06/06/2019 9:00 AM CDT Physical Therapy Outpatient Treatment Note SUBJECTIVE Patient's Name: Jorge Carr Carlosleigha Referring Provider: Mike Holbrook M.D. Visit Diagnosis: 1. Pain Leg Left Reason for Referral: Left hamstring strain Onset Date: 05/09/19 Payor: [facility] / Plan: [employer] FOR [employer] HMO / Product Type: HMO / No data recorded Epic Visit Count: 3 Patient comments: patient is doing well no concerns or complaints today. He states compliance with his home program. OBJECTIVE Pain: Pain Assessment Pain Assessment: 0-10 Numeric Pain Intensity Scale Pain Score: 3 Pain Type: Acute pain Pain Location: Leg Pain Orientation: Left TREATMENT Treatment today consisted of: Therapeutic Exercise: patient was placed on the NuStep for 10 min of warmup and AROM. Patient continued with hip abduction machine bilaterally 2 plates times 25, hamstring resisted curls 2 plates times20. Patient performs lunges, step- ups, standing hip abduction and mini squats times 25 Patient was instructed in Thera-Band resisted shoulder extension, internal rotation and external rotation followedby 1 lb scaption times 25. Patient was instructed in Thera-Band resisted hamstring curls, hamstring stretches, times 25 Home Exercise Program/Education: Patient was provided written, graphic, and verbal instructions for the exercises to ensure understanding. Assessment Clinical Impression: Patient still has some discomfort in the hamstring and right shoulder. Overall he tolerates exercises well. Rehab Potential: Excellent Clinical Presentation: Stable Functional Goals and Timeframes: PT Goal #1: Patient will be independent in home program in 2 weeks PT Goal #2: Patient will report 25% improvement with all standing functional tasks in 2 weeks PT Goal #3: Patient reports 50% improvement with all standing functional activities in 6 weeks PT Goal #4: Patient will score 70 or more on the LEFS in 8 weeks Goals 1 through 2 met 3- 4 in progress Plan Treatment/Interventions: Therapeutic exercise Plan: Continue with current plan Plan for next session: Patient will continue with current plan of care and return for [facility] program as tolerated and deemed appropriate by therapist. Time Spent with Patient Therapeutic Exercise (min): 30 min Time Calculation Total Timed Units (min): 30 min Total Treatment Time (min): 30 min Functional G-code Worksheet Rajeev AuT. Department of Physical Medicine and Rehabilitation in [address] [address] Dept: [phone] documented in this encounter Plan of Treatment Not on filedocumented as of this encounter Visit Diagnoses Diagnosis Pain Leg Left documented in this encounter Care Teams Barrel Maker Relationship Specialty Start Date End Date Cathy Mccoy M.D. PCP - General 02/23/17 12/18/19 documented as of this encounter
--- OUTSIDE RECORDS SUMMARY | 2022-05-24 18:24 | XMS_ITS | Encounter Summary ---
:1945 Author Organization [facility] Address [address] [place] [address] Care Team Providers Name Role Phone Cathy Mccoy M.D. Primary Care Provider Unavailable Reason for Visit Physical Therapy (Routine) - Canceled Specialty Diagnoses / Procedures Referred By Contact Refer red To Contact Diagnoses Pain Leg Left [facility] [place] [facility] Procedures PT Ongoing treatment [address] [place] [address] Referral ID Status Reason Start Date Expiration Date Visits V isits Requested Authorized [id number] Canceled 05/23/2019 09/10/2019 99 19 Encounter Details Date Type Department Care Team Description 06/13/2019 Clinical Support Department of Physical YusefMike ortiz M.D. [address] [place] [address] Pain Leg Left Kassidy and Benja Brown, PKamilaTKamila [address] [place] [address] Rehabilitation in [place], [place] [address] [place] [address] Social History Tobacco Use Types Packs/Day Years [...] or relatives? How often do you attend temple or More than 4 times per year 06/14/2019 roman catholic services? Do you belong to any clubs or Yes 06/14/2019 organizations such as temple groups, unions, fraternal or athletic groups, or [...] encounter Progress Notes Benja Brown, P.T. - 06/13/2019 10:00 AM CDT Physical Therapy Outpatient Treatment Note SUBJECTIVE Patient's Name: Jorge Chance Referring Provider: Mike Holbrook M.D. Visit Diagnosis: 1. Pain Leg Left Reason for Referral: Left hamstring strain Onset Date: 05/09/19 Payor: [employer] / Plan: [employer] FOR [employer] HMO / Product Type: HMO / No data recorded Epic Visit Count: 4 Patient comments: patient is doing well no concerns or complaints today. He states compliance with his home program. OBJECTIVE Pain: Pain Assessment Pain Assessment: 0-10 Numeric Pain Intensity Scale Pain Score: 1 Pain Location: Shoulder Pain Orientation: Right TREATMENT Treatment today consisted of: Therapeutic Exercise: [...] right shoulder. Overall he tolerates exercises well. LEFS 72, report 75% overall improvement Rehab Potential: Excellent Clinical Presentation: Stable Functional [...] LEFS in 8 weeks Goals 1 through 4 met Plan Treatment/Interventions: Therapeutic exercise Plan: Discontinue therapy Plan for next session: Patient will continue with current plan of care and return for [facility] program as tolerated and deemed appropriate by therapist. Discharge summary: Patient was seen in physical therapy for hamstring strain. Patient made excellentprogress with skilled physical therapy and achieved all of his short-term and long-term goals. Patient is independent with their home program, understands his condition, and will continue working on their home exercises. Patient will be discharged from physical therapy at this time secondary to his progress. Time Spent with Patient Therapeutic Exercise (min): 30 min Time Calculation Total Timed Units (min): 30 min Total Treatment Time (min): 30 min Functional G-code Worksheet Benja Brown P.T. Department of Physical Medicine and Rehabilitation in [address] [address] Dept: [phone] documented in this encounter Plan of Treatment Not on filedocumented as of this encounter Visit Diagnoses Diagnosis Pain Leg Left documented in this encounter Care Teams Pediatric Anesthesiologist Relationship Specialty Start Date End Date Cathy Mccoy M.D. PCP - General 02/23/17 12/18/19 documented as of this encounter
--- OUTSIDE RECORDS SUMMARY | 2022-05-24 18:24 | XMS_ITS | Encounter Summary ---
:1945 Author Organization [facility] Address [address] [place] [address] Care Team Providers Name Role Phone Cathy Mccoy M.D. Primary Care Provider Unavailable Reason for Visit Reason Onset Date Comments Diabetes 06/10/2019 Chronic pancreatitis Encounter Details Date Type Department Care Team Description 06/10/2019 Clinical Communication Department of Schema, Velma fontana (Chronic Nutrition in A, R.N. pancreatitis) [address] [address] [phone] Social History Tobacco Use Types Packs/Day Years [...] More than 4 times per year 06/14/2019 voodoo services? Do you belong to any clubs [...] this encounter Miscellaneous Notes Telephone Encounter - Narcisa Murphy M.D. - 06/11/2019 10:14 AM CDT Yony Carreon, Due to chronic pancreatitis patients can develop Diabetes, however loss of exocrine pancreas is generally more prominent and earlier feature and loss of beta cell function can come in to play generallylater. So once Beta cell function is feected- they would have less insulin secretion and present like type 1 DM patients and would require insulin treatment, however DKA risk would be low. I think thiscan be the case with him, STEVE 65 ab level can be checked as well but given pancreatitis history- I doubt that this will be Type 1. He does not necessarily see me due to pancreatitis as ling as DM is well controlled, however I wouldleave this up to discretion of his PCP. Thanks! Dr Murphy Telephone Encounter - Velma Lu R.N., CKamilaDKamilaE. - 06/10/2019 11:40 AM CDT , I met with Jorge today, has a very interesting hx. 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 Dx with chronic pancreatitis in 2013. My question, would this affect his ability to produce insulin? I do not see a STEVE 65 done, he is currently using 90-91 U of HumaLog 75/25 BID. Recently went off of metformin and FLORA due to hyperkaliemia. Is there a chance he could have developed type 1 diabetes? Should he come an see you? His PCP is out for a few days and I am interested in your opinion. Thank you, Velma documented in this encounter Plan of Treatment Not on filedocumented as of this encounter Visit Diagnoses Not on filedocumented in this encounter Care Teams Filler Wiper Relationship Specialty Start Date End Date Cathy Mccoy M.D. PCP - General 02/23/17 12/18/19 documented as of this encounter
--- OUTSIDE RECORDS SUMMARY | 2022-05-24 18:24 | XMS_ITS | Encounter Summary ---
:1945 Author Organization [facility] Address [address] [place] [address] Care Team Providers Name Role Phone Cathy Mccoy M.D. Primary Care Provider Unavailable Encounter Details Date Type Department Care Team Description 06/06/2019 Hospital Encounter Department of Laboratory Diane patterson, Hyperkalemia Medicine in Cathy Wise M.D. [address] [address] Social History Tobacco Use Types Packs/Day Years [...] daily. Use to 400 strip 3 09/06/2019 (PosibaTOUCH ULTRA BLUE test 4-5 times a day [...] 2 (two) times a day. insulin lispro Inject 0.9 mL (90 60 mL 3 06/05/2019 protamin-lispro Units total) under the (HumaLOG Mix skin 2 (two) times a 75-25,U-100,Insuln) day before breakfast 100 unit/mL (75-25) and dinner. injection insulin syringe-needle USE FOR INSULIN 100 each 4 05/27/20 19 12/06/2019 U-100 1 mL 31 gauge x INJECTIONS TWO TIMES A 01/24 syringe DAY [id number] Take 2 capsules by 180 capsule 11 03/1310/11/2019 e (CREON) mouth 3 (three) times 24,000-76,000-120,[address] a day. Unit per DR capsuleIndications: Pancreatitis Chronic (HCC) metFORMIN XR Take 1 tablet (500 mg 90 tablet 2 10/24/2018 1 09/11/2018 (GLUCOPHAGE-XR) 500 mg total) by mouth daily. 24 hr tablet metoprolol tartrate Take 0.5 tablets (12.5 90 tablet 3 05/1306/20/2019 (LOPRESSOR) 25 mg mg total) by mouth 2 tablet (two) times a day. nitroglycerin Place 1 tablet (0.4 mg 25 tablet 0 12/19/2018 12/06/2019 (NITROSTAT) 0.4 mg SL total) under the tablet tongue every 5 (five) minutes as needed for chest pain. documented as of this encounter Miscellaneous Notes Result Encounter Note - Cathy Mccoy M.D. - 06/06/2019 9:30 AM CDT Contacted patient and noted continued elevated potassium and were going to have him get some Kayexalate and take that. He will be coming back in to see me probably Monday and will discuss whether he should be seen by Endocrinology to control his diabetes. documented in this encounter Plan of Treatment Not on filedocumented as of this encounter Procedures Procedure Name Priority Date/Time Associated Diagnosis Comme nts POTASSIUM, S/P Routine 06/06/2019 10:04 AM Hyperkalemia Result s for this CDT procedure are i n the results section . documented in this encounter Results (ABNORMAL) Potassium (06/06/2019 10:04 [...] Address City/State/ZIP Code Phon e Number [facility]- [address] [place] [address], [place] [address] [facility] documented in this encounter Visit Diagnoses Diagnosis Hyperkalemia documented in this encounter Care Teams Urogynaecologist Relationship Specialty Start Date End Date Cathy Mccoy M.D. PCP - General 02/23/17 12/18/19 documented as of this encounter
--- OUTSIDE RECORDS SUMMARY | 2022-05-24 18:24 | XMS_ITS | Encounter Summary ---
:1945 Author Organization [facility] Address [address] [place] [address] Care Team Providers Name Role Phone Cathy Mccoy M.D. Primary Care Provider Unavailable Reason for Visit Auth/Cert Specialty Diagnoses / Procedures Referred By Contact Refer red To Contact Diagnoses Cataract Procedures OH RMVL CATARACT EXTRACAP CMPLX PHACOEMULSIFICATION CATARACT WITH INTRAOCULAR LENS IMPLANTATION Referral ID Status Reason Start Date Expiration Date Visits Requ ested Visits Authorized [id number] 1 1 Encounter Details Date Type Department Care Team Description 07/16/2019 Surgery [facility] OR Bouchra Ta PHACOEMULSIFICATION CATARACT [address] MONTANO M.D. WITH INTRAOCULAR LENS [place], [place] [address] IMPLANTATION [address] [place], [place] [phone] Social History Tobacco Use Types Packs/Day Years [...] or relatives? How often do you attend sikh or More than 4 times per year 06/14/2019 baptist services? Do you belong to any clubs or Yes 06/14/2019 organizations such as sikh groups, unions, fraternal or athletic groups, or [...] Comments Blood Pressure 143/81 07/16/2019 10:33 AM HOSPICE PLAN ADMINISTRATOR Pulse 52 07/16/2019 10:33 AM HOSPICE PLAN ADMINISTRATOR Temperature 36.4 ??C (97.5 ??F) 07/16/2019 10:33 AM HOSPICE PLAN ADMINISTRATOR Respiratory Rate 16 07/16/2019 10:33 AM HOSPICE PLAN ADMINISTRATOR Oxygen Saturation 98% 07/16/2019 10:33 AM HOSPICE PLAN ADMINISTRATOR Inhaled Oxygen Concentration - - Weight 111 kg (244 lb 11.4 oz) 07/16/2019 9:03 AM HOSPICE PLAN ADMINISTRATOR Height - - Body Mass Index 29.8 07/10/2019 10:21 AM CDT documented in this encounter Discharge Instructions Discharge InstructionsBouchra Ta M.D. - 07/16/2019 10:31 AM HOSPICE PLAN ADMINISTRATOR Images from the original note were not [...] red in the face). Call [facility] ([phone]) with severe pain or loss of vision. Follow up tomorrow morning as scheduled for your first post operative appointment ICE PLAN ADMINISTRATOR documented in this encounter Medications at Time [...] 5 times a day. ICD 10: E11.22 sgoook-zylsjaqw-knmfrn Take 2 capsules by 180 capsule 11 [...] changes to the H&P. Bouchra Ta M.D. ICE PLAN ADMINISTRATOR Source Note - Waldabymidt, Cathy K, M.D. - 07/10/2019 10:30 AM CDT SUBJECTIVE CHIEF COMPLAINT/REASON FOR VISIT Chief Complaint Patient presents with ??? Pre-op Exam cataracts, 07/16/19 and 07/30/19, at [place], bouchra ta HISTORY OF PRESENT ILLNESS Jorge Chance is a 74 y.o. male who presents at the request of Dr. Ta for cataract removal on 07/16/2019 and 07/30/2019 at [facility]. He had this schedule previously but [...] TWO TIMES ADAY 100 each 4 ??? lttnxd-aqzbpywt-qeokbkg (CREON) 24,000-76,000-120,[address] capsule Take [...] Extremities: Without redness, swelling, or edema. Skin: [place], warm, dry and intact with no rashes [...] Implant Name Type Inv. Item Serial No. Geoscience Professor Lot No. LRB No. Used LENS ULT [id number] ANT +17.0D - [id number] - [id number] Ocular Lens LENS ULT [id number] ANT +17.0D [id number] HESIODO N/A Right 1 Bouchra Ta M.D. ICE PLAN ADMINISTRATOR documented in this encounter Plan of Treatment Not on filedocumented as of this encounter Procedures Procedure Name Priority Date/Time Associated Comments Diagnosis GLUCOSE POCT, B Routine 07/16/2019 10:38 Results for this AM HOSPICE PLAN ADMINISTRATOR procedure are i n the results section. PHACOEMULSIFICATION 07/16/2019 10:05 Cataract CATARACT WITH INTRAOCULAR AM HOSPICE PLAN ADMINISTRATOR LENS IMPLANTATION Special Needs Epishugarcaine GLUCOSE POCT, B Routine 07/16/2019 9:58 AM HOSPICE PLAN ADMINISTRATOR Re sults for this procedure are in the results sec tion. GLUCOSE POCT, B Routine 07/16/2019 9:43 AM HOSPICE PLAN ADMINISTRATOR Re sults for this procedure are in the results sec tion. GLUCOSE POCT, B Routine 07/16/2019 9:26 AM HOSPICE PLAN ADMINISTRATOR Re sults for this procedure are in the results sec tion. documented in this encounter Results Glucose, POCT (07/16/2019 10:38 AM HOSPICE PLAN ADMINISTRATOR) P athologist Signature Glucose, POCT, 114 70 - 140 07/16/2019 MKTO B mg/dL 10:38 AM HOSPICE PLAN ADMINISTRATOR Specimen Anatomical Collection Method Collection Time Receive d Time (Source) Location / / Volume Laterality Blood 07/16/2019 10:38 07/16/2019 AM HOSPICE PLAN ADMINISTRATOR 10:52 AM HOSPICE PLAN ADMINISTRATOR Generic Rals LAB POCT ORDERABLES-MANUAL Performing Organization Address City/State/ZIP Code Phon e Number [facility]- [facility] [place] [address] [place] [address] Glucose, POCT (07/16/2019 9:58 AM HOSPICE PLAN ADMINISTRATOR) P athologist Signature Glucose, POCT, 96 70 - 140 07/16/2019 MKTO B mg/dL 9:58 AM HOSPICE PLAN ADMINISTRATOR Specimen Anatomical Collection Method Collection Time Receive d Time (Source) Location / / Volume Laterality Blood 07/16/2019 9:58 AM 9 HOSPICE PLAN ADMINISTRATOR 10:09 AM HOSPICE PLAN ADMINISTRATOR Generic Rals LAB POCT ORDERABLES-MANUAL Performing Organization Address City/State/ZIP Code Phon e Number [facility] [place] [address] [facility] [place] [address] System [address] Glucose, POCT (07/16/2019 9:43 AM HOSPICE PLAN ADMINISTRATOR) P athologist Signature Glucose, POCT, 116 70 - 140 07/16/2019 MKTO B mg/dL 9:43 AM HOSPICE PLAN ADMINISTRATOR Specimen Anatomical Collection Method Collection Time Receive d Time (Source) Location / / Volume Laterality Blood 07/16/2019 9:43 AM 9 HOSPICE PLAN ADMINISTRATOR 10:09 AM HOSPICE PLAN ADMINISTRATOR Generic Rals LAB POCT ORDERABLES-MANUAL Performing Organization Address City/State/ZIP Code Phon e Number [facility] [place] [address] [facility] [address] System in [place] [address] [place] [address] (ABNORMAL) Glucose, POCT (07/16/2019 9:26 AM HOSPICE PLAN ADMINISTRATOR) P athologist Signature Glucose, POCT, 46 (L) 70 - 140 07/16/2019 MKTO B mg/dL 9:26 AM HOSPICE PLAN ADMINISTRATOR Specimen Anatomical Collection Method Collection Time Receive d Time (Source) Location / / Volume Laterality Blood 07/16/2019 9:26 AM 9 HOSPICE PLAN ADMINISTRATOR 10:09 AM HOSPICE PLAN ADMINISTRATOR Generic Rals LAB POCT ORDERABLES-MANUAL Performing Organization Address City/State/ZIP Code Phon e Number [facility]- [address] [place] [address] [facility] [address] System in [place] [address] [facility] documented in this encounter Visit Diagnoses Not [...] ophthalmic solution 1 drop Given 9:54 AM HOSPICE PLAN ADMINISTRATOR 1 drop (CYCLOGYL) 1 drop, right eye, Every 5 min, First dose on Mon07/16/19 at 0900, For 3 doses, Pre-Op, in operative eye, Indications: perioperative mydriasis Given 07/16/2019 9:50 AM HOSPICE PLAN ADMINISTRATOR 1 drop Given 07/16/2019 9:45 AM HOSPICE PLAN ADMINISTRATOR 1 drop dextrose 40 % gel 15 [...] injection 12.5 g Given 07/16/2019 10:01 AM HOSPICE PLAN ADMINISTRATOR 12.5 g 12.5 g, intravenous, As needed, low blood sugar, For glucose 51-70 mg/dL, Starting on Mon07/16/19 at 0928, If the patient has intravenous access available, is not able to take oral feeding safely, does not have a functioning gastrointestinal tract or feeding tube, or is NPO, administer D50W intravenously. Given 07/16/2019 9:32 AM HOSPICE PLAN ADMINISTRATOR 12.5 g dextrose 50 % injection 25 g 25 g, intravenous, As needed, low blood sugar, For glu cose less than 50 mg/dL, Starting on Mon07/16/19 at 0928, If intravenous access is available, administer D50W intravenously EPINEPHrine 0.5 mg in balanced salt solution Given 01/2019 10:16 AM HOSPICE PLAN ADMINISTRATOR 500 mL 500 mL ophthalmic irrigation As needed, Starting on Mon07/16/19 at 1016, Intra-Op glucagon injection 1 [...] lactated ringers New Bag 07/16/2019 9:49 AM HOSPICE PLAN ADMINISTRATOR 20 mL/hr 20 mL/hr 20 mL/hr, intravenous, Continuous, Starting on Mon07/16/19 at 1045, Pre-Op lidocaine (PF) 0.75 mL, balanced salt Given 07/16/2019 10:16 AM HOSPICE PLAN ADMINISTRATOR 1 mL Right Eye solution 2.25 mL, EPINEPHrine (PF) 1 mL 4 mL solution (SHUGARCAINE) As needed, Starting on Mon07/16/19 at 1016, Intra-Op midazolam (PF) injection (VERSED) Given 07/16/2019 10:10 AM HOSPICE PLAN ADMINISTRATOR 0.5 mg Code/trauma/sedation medication, Starting on Mon07/16/19 at 1010 moxifloxacin 0.5 % ophthalmic Given 07/16/2019 10:27 AM HOSPICE PLAN ADMINISTRATOR 0.05 mL Right Eye solution (VIGAMOX) As needed, Starting on Mon07/16/19 at 1027, Intra-Op naloxone injection 0.2 mg (NARCAN) 0.2 mg, intravenous, As needed, respirat ory depression, Starting on Mon07/16/19 at 1014, For respiratory rate less than 8 b reaths per minute or RASS score of -3, -4, -5. Apply oxygen to keep oxygen saturati ons greater than 90% and notify service. phenylephrine 2.5 % ophthalmic solution 1 Given 07/16/2019 9:55 AM HOSPICE PLAN ADMINISTRATOR 1 drop drop (MYDFRIN) 1 drop, right eye, Every 5 min, First dose on Mon07/16/19 at 0900, For 3 doses, Pre-Op, in operative eye, Indications: mydriasis Given 07/16/2019 9:50 AM HOSPICE PLAN ADMINISTRATOR 1 drop Given 07/16/2019 9:45 AM HOSPICE PLAN ADMINISTRATOR 1 drop sodium chloride 0.9 % injection [...] Catheter, when no infusion to maintain patency tetracaine (PF) 0.5 % ophthalmic Given 07/16/2019 10:12 AM HOSPICE PLAN ADMINISTRATOR 2 drops Right Eye solution (ALTACAINE) As needed, Starting on Mon07/16/19 at 1010, Intra-Op Given 07/16/2019 10:11 AM HOSPICE PLAN ADMINISTRATOR 1 drop Righ t Eye Given 07/16/2019 10:10 AM HOSPICE PLAN ADMINISTRATOR 1 drop Righ t Eye documented in this encounter Active and Recently Administered Medications Due to Daylight Saving Time, this section may contain times in both CDT and HOSPICE PLAN ADMINISTRATOR. Scheduled Medication Order 07/14/2019 07/15/2019 07/16/2019 cyclopentolate 1 % ophthalmic solution 1 drop (CYCLOGYL) (COMPLE YNAICK) 0945 (Given - Provider: Marlen Murphy R.N.)0950 [...] 0949 (New Bag - Provider: Jacquie Hager RIván) 20 mL/hr, intravenous, at 20 mL/hr, Cont [...] For glucose 51-70 mg/dL, Starting Mon07/16/19 at 09, If the patient has intravenous access available, is not able to take oral feeding safely, does not have a functioning gastrointestinal tra ct or feeding tube, or is NPO, administer D50W intravenously. dextrose 50 % injection 25 g 25 g, intravenous, As needed, low blood sugar, For glucose less than 50 mg/dL, Starting Mon07/16/19 at 09, If intravenous access is available, administer D50W [...] Ta M.D.) As needed, Starting Mon07/16/19 at 1027, Intra-Op naloxone injection 0.2 mg (NARCAN) 0.2 mg, intravenous, As needed, respirat ory depression, Starting Mon07/16/19 at 1014, For respiratory rate less [...] Intra-Op documented in this encounter Care Teams Quality Assurance Tester Relationship Specialty Start Date End Date Cathy Mccoy M.D. PCP - General 02/23/17 12/18/19 documented as of this encounter
--- OUTSIDE RECORDS SUMMARY | 2022-05-24 18:24 | XMS_ITS | Encounter Summary ---
:1945 Author Organization [facility] Address [address] [place] [address] Care Team Providers Name Role Phone Cathy Mccoy M.D. Primary Care Provider Unavailable Reason for Referral Outpatient (Routine) - Closed Specialty Diagnoses / Procedures Referred By Contact Refer red To Contact Cathy Adams M.D. [facility] [address] [place] [phone] Referral ID Status Reason Start Date Expiration Date Visits Requ ested Visits Authorized [id number] Closed 06/10/2019 06/09/2020 1 1 Encounter Details Date Type Department Care Team Description 06/10/2019 Clinical Support Department of Cathy Mccoy M .D. Diabetes Mellitus Type Nutrition in [facility] Aly, Velma Chambers, R.N. 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 Do you belong to any clubs [...] encounter Patient Instructions Patient InstructionsSchVelma an R.N., Bruce. - 06/10/2019 10:00 AM CDT Check blood sugars: 1 Beforer Breakfast; Goal is to get to 100-140, most morning 2 Before evening meal ( before late afternoon snack.) Goal is to get to, 100-160 Most of the time 3 2-3 hours after supper, before bedtime snack; Goal is < 180 Most the time. documented in this encounter Progress Notes Velma Lu R.N., Bruce. - 06/10/2019 10:00 AM CDT REASON FOR VISIT Diabetes Education Referred by: Cathy Mccoy M.D. HISTORY OF PRESENT ILLNESS Jorge attends with his of nearly 50 years, Elham. He shares his recent hx of Hyperkalemia and notes that he has stopped taking metformin and his FLORA inhibitor. Since stopping the metformin his blood sugars have gone up on average about 40- 50 pts. He is checking AC breakfast and evening meals, confirming the use of Humalog 75/25 90-91 U BID. He also checks periodically if he feels his blood sugars are going too low, he feels low at about 60's. Using vial and syringe, he is not interested in using the pen. The vial is affordable. 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 It is so small that it is not able to produce any enzymes and he wonders about the ability to produce insulin. He has been told thatbecause of the Creon that is required, he only has a limited amount of time to live. CDE does not note a STEVE 65 in his history. Jorge would be interested in using an insulin pump, if indeed he can afford it. He has done basal/bolus in the past, Elham recalls adjusting the insulin as needed. However they believe they switched to mixed insulin to simplify his daily routine. Plan: Increase testing times to TID, and if he feels he is going low. Return in 2 weeks to review and start insulin titration. Send note of concern to Dr. Murphy. OBJECTIVE Pertinent Labs: Lab Results Component Value [...] 10/12/2016 Lab Results Component Value Date CREATININE 1.44 (H) 06/05/2019 CREATININE 1.43 (H) 04/04/2019 CREATININE 1.37 (H) 04/01/2019 Lab Results Component Value Date EGFR 47 (L) 06/05/2019 EGFR 48 (L) 04/04/2019 EGFR 50 (L) 04/01/2019 ASSESSMENT CDE identified patient knowledge gaps or diabetes skills that patient needs education/training on asthe following: Discuss blood sugar goals; insulin options, including insulin pump. Ask RDN to supplyinformation on foods that contain K+; explain the roll of metformin. Patient Education Provided: Yes, patient education was provided, refer to the patients education record. Evaluation of Learning: Barriers that were noted at education session and how addressed: No barriers to education noted. Patient's response to learning completed today: I learned about the potassium and that we can look at a pump. Will need further education on the following: Insulin titration. Medication Changes: No Medication recommendations: Increase testing times to TID to allow for safe insulin titration. PLAN The patient has the following support and personal plans for managing their diabetes: Goal #1: I will check my blood sugar 3 times per day, fasting pre and post supper. I will bring my log to Velma in 2 weeks. DMPLAN: To see educator senior clinical face to face (visit) in 2 weeks. 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 PCP - General 02/23/17 12/18/19 documented as of this encounter
--- OUTSIDE RECORDS SUMMARY | 2022-05-24 18:24 | XMS_ITS | Encounter Summary ---
:1945 Author Organization [facility] Address [address] [place] [address] Care Team Providers Name Role Phone Cathy Mccoy M.D. Primary Care Provider Unavailable Reason for Visit Auth/Cert Specialty Diagnoses / Procedures Referred By Contact Refer red To Contact Diagnoses Cataract Procedures [place] RMVL CATARACT EXTRACAP CMPLX PHACOEMULSIFICATION CATARACT WITH INTRAOCULAR LENS IMPLANTATION Referral ID Status Reason Start Date Expiration Date Visits Requ ested Visits Authorized [id number] 1 1 Encounter Details Date Type Department Care Team Description 07/30/2019 Surgery [facility] OR Bouchra Ta PHACOEMULSIFICATION CATARACT [address] MONTANO M.D. WITH INTRAOCULAR LENS [place], [place] [address] IMPLANTATION [address] [place], [place] [phone] Social History Tobacco Use Types Packs/Day [...] Comments Blood Pressure 151/87 07/30/2019 9:41 AM WELDER APPRENTICE GAS Pulse 62 07/30/2019 9:41 AM WELDER APPRENTICE GAS Temperature 36.8 ??C (98.2 ??F) 07/30/2019 9:41 AM WELDER APPRENTICE GAS Respiratory Rate 18 07/30/2019 9:41 AM WELDER APPRENTICE GAS Oxygen Saturation 98% 07/30/2019 9:41 AM WELDER APPRENTICE GAS Inhaled Oxygen Concentration - - Weight 111 kg (244 lb 7.8 oz) 07/30/2019 8:19 AM WELDER APPRENTICE GAS Height - - Body Mass Index 29.77 [...] more times) [facility] [phone] ER APPRENTICE GAS documented in this encounter Medications at Time [...] 5 times a day. ICD 10: E11.22 wsujgu-dsewnrjw-abzeuo Take 2 capsules by 180 capsule 11 [...] changes to the H&P. Bouchra Ta M.D. ER APPRENTICE GAS Source Note - Cathy Mccoy M.D. - 07/10/2019 10:30 AM CDT SUBJECTIVE CHIEF COMPLAINT/REASON FOR VISIT Chief Complaint Patient presents with ??? Pre-op Exam [facility], [facility] HISTORY OF PRESENT ILLNESS Jorge Chance is a 74 y.o. male who presents at the request of Dr. Ta for cataract removal on 07/16/2019 and 07/30/2019 at [facility]. He had this schedule previously but was [...] times a day. ??? blood sugar diagnostic (RamamiaUCH ULTRA BLUE TEST STRIP) strips 5 test [...] TWO TIMES ADAY 100 each 4 ??? ojpzpi-agyknuca-yscbbus (CREON) 24,000-76,000-120,[address] capsule Take [...] Extremities: Without redness, swelling, or edema. Skin: [place], warm, dry and intact with no rashes [...] Implant Name Type Inv. Item Serial No. Senior Javascript Engineer Lot No. LRB No. Used LENS ULT [id number] ANT +18.0D - SN/A - [id number] Ocular Lens LENS ULT [id number] ANT +18.0D N/A [employer] [id number] Left 1 Bouchra Ta M.D. ER APPRENTICE GAS documented in this encounter Plan of Treatment Not on filedocumented as of this encounter Procedures Procedure Name Priority Date/Time Associated Comments Diagnosis PHACOEMULSIFICATION CATARACT 07/30/2019 9:[address] WITH INTRAOCULAR LENS WELDER APPRENTICE GAS IMPLANTATION Special Needs Epishugarcaine GLUCOSE POCT, B Routine 07/30/2019 8:38 AM WELDER APPRENTICE GAS Re sults for this procedure are in the results sec tion. documented in this encounter Results (ABNORMAL) Glucose, POCT (07/30/2019 8:38 AM WELDER APPRENTICE GAS) P athologist Signature Glucose, POCT, 189 (H) 70 - 140 07/30/2019 MKTO B mg/dL 8:38 AM WELDER APPRENTICE GAS Specimen Anatomical Collection Method Collection Time Receive d Time (Source) Location / / Volume Laterality Blood 07/30/2019 8:38 AM 9 8:45 WELDER APPRENTICE GAS AM WELDER APPRENTICE GAS Generic Rals LAB POCT ORDERABLES-MANUAL Performing Organization Address City/State/ZIP Code Phon e Number [facility]- [address] [place] [address] System [address] documented in this encounter Visit Diagnoses Not on filedocumented in this encounter Administered Medications Inactive Administered Medications - up to 3 most recent administrations Medication Order MAR Action Action Date Dose Rate Site cyclopentolate 1 % ophthalmic Given 07/30/2019 8:46 AM WELDER APPRENTICE GAS 1 juliette p solution 1 drop (CYCLOGYL) 1 drop, left eye, Every 5 min, First dose on Mon07/30/19 at 0815, For 3 doses, Pre-Op, in operative eye Given 07/30/2019 8:39 AM WELDER APPRENTICE GAS 1 drop Given 07/30/2019 8:32 AM WELDER APPRENTICE GAS 1 drop EPINEPHrine 0.5 mg in balanced salt solution Given 9:30 AM WELDER APPRENTICE GAS 500 mL 500 mL ophthalmic irrigation As needed, Starting on Mon07/30/19 at 0930, Intra-Op lactated ringers New Bag 07/30/2019 8:47 AM WELDER APPRENTICE GAS 20 mL/hr 20 mL/hr 20 mL/hr, intravenous, Continuous, Starting on Mon07/30/19 at 0815, Pre-Op lidocaine (PF) 0.75 mL, balanced salt Given 07/30/2019 9:[address] 1.5 mL Left Eye solution 2.25 mL, EPINEPHrine (PF) 1 mL 4 mL solution (SHUGARCAINE) As needed, Starting on Mon07/30/19 at 0929, Intra-Op midazolam (PF) injection (VERSED) Given 07/30/2019 9:18 AM WELDER APPRENTICE GAS 0.5 mg Code/trauma/sedation medication, Starting on Mon07/30/19 at 0918 moxifloxacin 0.5 % ophthalmic Given 07/30/2019 9:29 AM WELDER APPRENTICE GAS 0.05 mL Left Eye solution (VIGAMOX) As needed, Starting on Mon07/30/19 at 0929, Intra-Op phenylephrine 2.5 % ophthalmic solution 1 Given 07/30/2019 8:46 AM WELDER APPRENTICE GAS 1 drop drop (MYDFRIN) 1 drop, left eye, Every 5 min, First dose on Mon07/30/19 at 0815, For 3 doses, Pre-Op, in operative eye Given 07/30/2019 8:39 AM WELDER APPRENTICE GAS 1 drop Given 07/30/2019 8:32 AM WELDER APPRENTICE GAS 1 drop sodium chloride 0.9 % injection [...] patency tetracaine (PF) 0.5 % ophthalmic Given 07/30/2019 9:17 AM WELDER APPRENTICE GAS 1 drop Left Eye solution (ALTACAINE) As needed, Starting on Mon07/30/19 at 0915, Intra-Op Given 07/30/2019 9:16 AM WELDER APPRENTICE GAS 1 drop Left Eye Given 07/30/2019 9:15 AM WELDER APPRENTICE GAS 1 drop Left Eye documented in this encounter Active and Recently Administered Medications Times are shown in WELDER APPRENTICE GAS. Scheduled Medication Order 07/28/2019 07/29/2019 07/30/2019 cyclopentolate 1 % ophthalmic solution 1 drop (CYCLOGYL) (COMPLE YANICK) 0832 (Given - Provider: Jacquie Hager R.N.)0839 (Given - Provider: Jacquie Hager R.N.)0846 (Given - Provider: Jacquie Hager R.N.) 1 drop, left eye, Every 5 min, First dos e on Mon07/30/19 at 0815, For 3 doses, Pre-Op, in operative eye phenylephrine 2.5 % ophthalmic solution 1 drop (MYDFRIN) (COMPLE YANICK) 0832 (Given - Provider: Jacquie Hager R.N.)0839 (Given - Provider: Jacquie Hager R.N.)0846 (Given - Provider: Jacquie Hager R.N.) 1 drop, left eye, Every 5 min, [...] 0847 (New Bag - Provider: Jacquie Hager R.N.) [...] 0929, Intra-Op midazolam (PF) injection (VERSED) (COMPLETED) 917 (Given - Provider: Joanne Jama R.N.) Code/trauma/sedation medication, Starting on Mon07/30/19 at 091 8 moxifloxacin 0.5 % ophthalmic solution (VIGAMOX) (CANCELED) 928 (Given - Provider: Bouchra Ta M.D.) As [...] (PF) 0.5 % ophthalmic solution (ALTACAINE) (CANCELED) 914 (Given - Provider: Bouchra Ta M.D.)09 (Given - Provider: Bouchra Ta M.D.)0917 (Given - Provider: Bouchra Ta M.D.) As needed, Starting Mon07/30/19 at 0915, Intra-Op documented in this encounter Care Teams Wildland Fire Fighter Specialist Relationship Specialty Start Date End Date Cathy Mccoy M.D. PCP - General 02/23/17 12/18/19 documented as of this encounter
--- OUTSIDE RECORDS SUMMARY | 2022-05-24 18:25 | XMS_ITS | Encounter Summary ---
:1945 Author Organization [facility] Address [address] [place] [address] Care Team Providers Name Role Phone Cathy Mccoy M.D. Primary Care Provider Unavailable Reason for Visit Reason Comments Med Refill Encounter Details Date Type Department Care Team Description 05/27/2019 Refill Department of Family Medicine, Malka Thomas RKamilaNKamila Med Refill [facility], in [place] [id number] [place] [address] [place] [address] [place] [address] Social History Tobacco Use Types Packs/Day Years [...] this encounter Miscellaneous Notes Telephone Encounter - Malka Horton - 05/27/2019 9:53 AM CDT Last seen 04/01/19 Last filled 11/05/18 Upcoming appt 06/05/19 documented in this encounter Plan of Treatment Not on filedocumented as of this encounter Visit Diagnoses Not on filedocumented in this encounter Care Teams Flosser Relationship Specialty Start Date End Date Cathy Mccoy M.D. PCP - General 02/23/17 12/18/19 documented as of this encounter
--- OUTSIDE RECORDS SUMMARY | 2022-05-24 18:25 | XMS_ITS | Encounter Summary ---
:1945 Author Organization [facility] Address [address] [place] [address] Care Team Providers Name Role Phone Cathy Mccoy M.D. Primary Care Provider Unavailable Reason for Referral Outpatient (Routine) - Closed Specialty Diagnoses / Procedures Referred By Contact Sita loera To Contact Cathy De Jesus M.D. [address] [phone] Referral ID Status Reason Start Date Expiration Date Visits Requ ested Visits Authorized [id number] Closed 06/05/2019 06/04/2020 1 1 Specialty Diagnoses / Procedures Referred By Contact Sita olera To Contact Cathy Mccoy M.D. [address] [phone] Referral ID Status Reason Start Date Expiration Date Visits Requ ested Visits Authorized Reason for Visit Reason Comments Diabetes 6 month follow up Pre-op Exam cataract surgery planned to be scheduled soon, [facility], Outpatient (Routine) - Closed Specialty Diagnoses / Procedures Referred By Arcelia loera To Contact Cathy De Jesus M.D. 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 Hyperglycemic (HCC); Shaka Hood Hyperlipidemia; [address] Hypertension Benign Renovasc ular; [place], [place] Proteinuria; [id number] Hyperkalemia [phone] Social History Tobacco Use Types Packs/Day Years [...] Sign Reading Time Taken Comments Blood Pressure 112/66 06/05/2019 10:20 AM CDT Pulse 64 06/05/2019 10:20 AM CDT Temperature 35.7 ??C (96.3 ??F) 06/05/2019 10:20 AM CDT Respiratory Rate 20 06/05/2019 10:20 AM CDT Oxygen Saturation - - Inhaled Oxygen Concentration - - Weight 110 kg (243 lb 9.7 oz) 06/05/2019 10:20 AM CDT Height 193 cm (6' 3.98) 06/05/2019 10:20 AM CDT Body Mass Index 29.67 06/05/2019 10:20 AM CDT documented in this encounter Progress Notes Cathy Mccoy M.D. - 06/05/2019 10:30 AM CDT SUBJECTIVE CHIEF COMPLAINT/REASON FOR VISIT Chief Complaint Patient presents with ??? Diabetes 6 month follow up ??? Pre-op Exam cataract surgery planned to be scheduled soon, [facility], HISTORY OF PRESENT ILLNESS Jorge Chance is a 74 y.o. male who presents for diabetes check but he is also interested beau preop for cataract surgery. It has not been arranged yet so I am not sure that this visit will count for preop unless the surgery is scheduled within a month. Patient has had labs done and his microalbumin has increased from 70-95, hemoglobin A1c is increased from 5.9-7.4. He keeps having hyperkalemia and they stopped metformin and lisinopril due to this. He says his sugars in the morning her around 165 and in the evening around 185. He had his diabetic eye exam last Monday and that is why they are setting up cataract surgery. He was seen recently in the emergency room and he was told that he tore his left hamstring and is doing physical therapy for that. He was evidently trying to lift to trailer and became unsteady. He is also having some pain in his right shoulder because he tipped over in achair and he says it hurts to sleep on that shoulder. He does not want to have evaluation quite yet and wants to give it more time. He also mentions that the last 2 weeks he has had sore calves when hewalks and they are better when he rests. He discussed this very late and the appointment and we asked him to come back to re-evaluate this as it could be claudication. REVIEW OF SYSTEMS Constitutional: Positive for fatigue. Eyes: Positive for visual problems. Getting cataracts done Respiratory: Positive for sleep disturbances due to breathing. Cardiovascular: Positive for pain in the calf muscles when walking. Musculoskeletal: Positive for arthralgias, pain or stiffness in the joints and muscle pain/stiffness. Tore hamstring and right shoulder pain from fall and torquing lifting Psychiatric/Behavioral: Positive for stop breathing, choking, or gasping while asleep. The following systems were negative: Skin, ENT, GI, , Hematologic, Neuro MEDICAL HISTORY Patient Active Problem List Diagnosis [...] Substance Use Topics ??? Alcohol use: No ??? Drug use: No ALLERGIES/CONTRAINDICATIONS Allergies Allergen [...] times a day. ??? blood sugar diagnostic (Food and Beverage ULTRA BLUE TEST STRIP) strips 5 test [...] TWO TIMES ADAY 100 each 4 ??? kfyfgn-jumhgcsd-sikxqsf (CREON) 24,000-76,000-120,[address] capsule Take 2 capsules by mouth 3 (three) times a day. 180 capsule 11 ??? metoprolol tartrate (LOPRESSOR) 25 mg tablet [...] (four) times a day as needed. ??? metFORMIN XR (GLUCOPHAGE-XR) 500 mg 24 hr tablet Take 1 tablet (500 mg total) by mouth daily. 90tablet 2 OBJECTIVE VITAL SIGNS BP 112/66 (BP Location: Right arm, Patient Position: Sitting, Cuff Size: Large) Pulse 64 Temp (!) 35.7 ??C (Temporal) Resp 20 Ht 193 cm Wt 110 kg BMI 29.67 kg/m?? PHYSICAL EXAMINATION General: Alert, in no apparent distress, nontoxic appearing. Mood and affect were appropriate to thesituation. HEENT: No pallor or icterus. Conjunctivae and sclerae clear without redness or drainage. Bilateral cataract. Oropharynx was clear with no erythema, exudate or tonsillar enlargement. Moist mucous membranes. Tympanic membranes pearly wang bilaterally. Neck: Trachea was midline. No lymphadenopathy. No thyromegaly or palpable masses. No carotid bruits. Heart: S1, S2 with no significant murmurs. Regular rate and rhythm. Distant. Lungs: Breath sounds were clear throughout bilaterally. Respirations were regular, nonlabored. Abdomen: Soft, nontender, nondistended with bowel sounds active x 4 quadrants. No abdominal bruits. No rebound tenderness or guarding. No obvious masses or hernias. No organomegaly noted. Extremities: Right shoulder is tender at 45?? with extension. Supraspinatus and pop can test were both positive Skin: [place], warm, dry and intact with no rashes noted. Neurologic: No focal deficits. Sensorimotor function was intact in the bilateral upper and lower extremities. Pupils were equal, round, and reactive to light. Normal gait and posture noted. DTR???s 2+/4, Strengths 5/5. DIAGNOSTICS Recent Results (from the past 72 hour(s)) Hemoglobin A1c Collection Time: 06/03/19 8:55 AM Result Value Hemoglobin A1c, B 7.4 (H) Microalbumin, Random, Urine Collection Time: 06/03/19 9:02 AM Result Value Microalbumin 95.0 Creatinine 120 Albumin/Creatinine Ratio 79 (H) ASSESSMENT / PLAN #1 Preoperative Exam If his cataract surgery is scheduled within 30 days depending on labs we will likely clear him for surgery. He has history of cardiac arrest but an EKG in March showed sinus rhythm with 1st degree AV block, left axis deviation, low- voltage QRS, low anterolateral forces and cannot rule out inferior infarct. 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 We should see him back in 6 months with a hemoglobin A1c and microalbumin.We are increasing his dosage of 75/25 mix of insulin to 90 units twice a day. - Nutrition - clinical educator visit (clinic); Future; Expected date: 06/05/2019 - Microalbumin, Random, Urine; Future; Expected date: 12/04/2019 - Hemoglobin A1c; Future; Expected date: 12/04/2019 #3 Hyperlipidemia In 6 months will be checking lipid panel and AST. - Lipid Panel; Future; Expected date: 12/04/2019 - AST (Aspartate Aminotransferase); Future; Expected date: 12/04/2019 #4 Hypertension Benign Renovascular Hypertension is being controlled by metoprolol alone. He was taken off lisinopril because it was thought that that might be increasing his potassium. #5 Proteinuria Protein in the urine is increasing so were going to recheck that and may have him see Nephrology if that continues to increase. #6 Hyperkalemia We are going to recheck a basic metabolic panel today and in 6 months. - BMP (Basic Metabolic Panel); Future; Expected date: 12/04/2019 - BMP (Basic Metabolic Panel) Other orders - Family Medicine office visit (clinic) - Self - Family Medicine office visit (clinic); Future; Expected date: 12/04/2019 - insulin lispro protamin-lispro (HumaLOG Mix 75-25,U-100,Insuln) 100 unit/mL (75-25) injection; Inject 0.9 mL (90 Units total) under the skin 2 (two) times a day before breakfast and dinner., StartingWed 06/05/2019, Normal ADMINISTRATIVE BILLING Total time spent 45 minutes, 40 minutes spent in counseling and coordination of care. documented in this encounter Miscellaneous Notes Result Encounter Note - Cathy Mccoy M.D. - 06/05/2019 10:30 AM CDT Contacted patient and discussed potassium and kidney function and will have him go back in and checka potassium tomorrow and told him to drink plenty of fluids tonight. documented in this encounter Plan of Treatment Scheduled Referrals Name Type Priority Associated Diagnoses Order S chedule Nutrition - Outpatient Referral Routine Diabetes Mellitus Typ e Expected: clinical educator 2 With Diabetic 019 visit (clinic) Chronic Kidney Disease (Ap proximate), Hyperglycemic (HCC) Expires: 06/05/2020 Family Medicine Outpatient Referral Routine Expec ann: office visit 12/04/2019 (clinic) (Approximate), Expires: 06/05/2022 documented as of this encounter Procedures Procedure Name Priority Date/Time Associated Diagnosis Comme nts BASIC METABOLIC Routine 06/05/2019 11:33 Hyperkalemia Results for this PANEL, S/P AM CDT procedure are i n [...] M.D. LAB URINE ORDERABLES Performing Organization Address City/State/ZIP Code Phon e Number [facility]- [address] [place] [phone] [place] [address] System in [address] (ABNORMAL) Hemoglobin A1c (12/04/2019 8:34 AM CDT) [...] M.D. LAB BLOOD ADD-ON Performing Organization Address [facility] Phon e Number [place] [address] [address] [place] [address] System in [address] AST (Aspartate Aminotransferase) (12/04/2019 8:34 AM CDT) [facility] Method Time Signature Aspartate 32 8 - 48 12/04/2019 [facility] Aminotransferase U/L 1:13 PM CDT (AST), P Specimen Anatomical Collection Method Collection Time Receive d Time (Source) Location / / Volume Laterality Blood (Blood, 12/04/2019 8:34 AM 12/04/19 20 Venous) CDT 12:34 PM CDT Cathy Mccoy M.D. LAB BLOOD ADD-ON Performing Organization Address [facility] Phon e Number [phone] [place] [address] System in [address] (ABNORMAL) Lipid Panel (12/04/2019 8:34 AM CDT) athologist Signature Cholesterol, 121 mg/dL 12/04/2019 [facility] Total 1:13 PM CDT Comment: ----REFERENCE VALUE---- Desirable: < 200 Borderline high: 200 - 239 High: > or = 240 Triglycerides 81 mg/dL 12/04/2019 1:13 PM CDT [facility] A Comment: ----REFERENCE VALUE---- Normal: <150 Borderline [...] Organization Address City/State/ZIP Code Phon e Number [phone] [address] System [address] (ABNORMAL) Basic Metabolic Panel (12/04/2019 8:34 [...] eGFR-Black/Afri 56 (L) >=60 12/04/2019 [facility] can [place] mL/min/BSA 1:13 PM CDT Comment: ----ADDITIONAL INFORMATION---- Estimated GFR calculated using the 2009 CKD_EPI creatinine equation. eGFR Non-Black/ 49 (L) >=60 mL/min/BSA 12/04/2019 1:13 PM CDT [facility] [place] Comment: ----ADDITIONAL INFORMATION---- Estimated GFR calculated using [...] Address City/State/ZIP Code Phon e Number [facility]- [address] [place] [phone] [place] [address] System [address] (ABNORMAL) BMP (Basic Metabolic Panel) (06/05/2019 11:33 AM CDT) Analysis Performed At Patho logist Time Signature Potassium, S 5.6 (H) 3.6 - 5.2 06/05/2019 mmol/L 8:16 PM CDT Sodium, S 137 135 - 145 06/05/2019 mmol/L 8:16 PM CDT Chloride, S 106 98 - 107 06/05/2019 mmol/L 8:16 PM CDT Bicarbonate, S 20 (L) 22 - 29 06/05/2019 mmol/L 8:16 PM CDT Anion Gap 11 7 - 15 06/05/2019 8:16 PM CDT BUN (Blood Urea 32 (H) 8 - 24 06/05/2019 Nitrogen), S mg/dL 8:16 PM CDT Creatinine 1.44 (H) 0.74 - 06/05/2019 1.35 mg/dL 8:16 PM CDT eGFR-Non 47 (L) >=60 06/05/2019 Black/ mL/min/BSA 8:16 PM CDT [place] Comment: ----ADDITIONAL INFORMATION---- Estimated GFR calculated using the 2009 CKD_EPI creatinine equation. eGFR-Black/ 55 (L) >=60 mL/min/BSA 2018 8:16 PM CDT Comment: ----ADDITIONAL INFORMATION---- Estimated GFR calculated using the 2009 CKD_EPI creatinine equation. Calcium, Total, S 9.9 8.8 - 10.2 mg/dL 06/05/2019 8:16 PM CDT Glucose, S 243 (H) 70 - 140 mg/dL 06/05/2019 8:16 PM CDT Specimen Anatomical Collection Method Collection Time Receive d Time (Source) Location / / Volume Laterality Blood (Blood, 06/05/2019 11:33 06/05/2019 7:39 Venous) AM CDT PM CDT Cathy Mccoy M.D. LAB BLOOD ADD-ON Performing Organization Address City/State/ZIP Code Phon e Number [facility]- [address] [place] [address] [address] [facility] documented in this encounter Visit Diagnoses Diagnosis Preoperative Exam - Primary Diabetes Mellitus Type 2 With Diabetic C hronic Kidney Disease Hyperglycemic (HCC) Hyperlipidemia Hypertension Benign Renovascular Proteinuria Hyperkalemia documented in this encounter Care Teams Sofa Inspector Relationship Specialty Start Date End Date Cathy Mccoy M.D. PCP - General 02/23/17 12/18/19 documented as of this encounter
--- OUTSIDE RECORDS SUMMARY | 2022-05-24 18:25 | XMS_ITS | Encounter Summary ---
:1945 Author Organization [facility] Address [address] [place] [address] Care Team Providers Name Role Phone Cathy Mccoy M.D. Primary Care Provider Unavailable Reason for Visit Reason Comments Abnormal Potassium reports high potassium. had same last week. patient feels very well otherwise. Encounter Details Date Type Department Care Team Description 04/01/2019 Emergency [facility] Kyle Lozano Hype rkalemia (Primary System Olivia Junior Dx) Emergency Department [address] [phone] Social History Tobacco Use Types Packs/Day Years [...] or relatives? How often do you attend latter-day or More than 4 times per year 06/14/2019 uatsdin services? Do you belong to any clubs or Yes 06/14/2019 organizations such as latter-day groups, unions, fraternal or athletic groups, or [...] Sign Reading Time Taken Comments Blood Pressure 147/78 04/01/2019 11:00 PM CDT Pulse 59 04/01/2019 11:00 PM CDT Temperature 36.5 ??C (97.7 ??F) 04/01/2019 9:34 PM CDT Respiratory Rate 0 04/01/2019 11:00 PM CDT Oxygen Saturation 98% 04/01/2019 11:00 PM CDT Inhaled Oxygen Concentration - - Weight 113 kg (249 lb 9 oz) 04/01/2019 9:34 PM CDT Height 190.5 cm (6' 3) 04/01/2019 9:34 PM CDT Body Mass Index 31.19 04/01/2019 9:34 PM CDT documented in this encounter Discharge Instructions AttachmentsThe following attachments cannot be sent through Care Everywhere. Hyperkalemia (Kazakh)documented in this encounter Medications at Time of [...] (two) times a day. HUMALOG MIX INJECT 0.9 ML (90 60 mL 4 11/05/20182018 75-25,U-100,INSULN 100 UNITS) UNDER THE SKIN unit/mL (75-25) TWICE A DAY injection insulin syringe-needle USE TO INJECT INSULIN 200 each 3 05/27/2019 U-100 1 mL 31 gauge x TWICE DAILY E11.9 01/24 syringe [id number]-[id number] Take 2 capsules by 180 capsule 11 03/1104/08/2019 e (CREON) mouth 3 (three) times 24,000-76,000-120,000 a day. Unit per capsuleIndications: Pancreatitis Chronic (HCC) metFORMIN XR Take [...] chest pain. documented as of this encounter ED Notes Tanning, Kyle D, M.D. - 04/01/2019 10:00 PM CDT I, Price Vergara, am scribing for and in the presence of, Kyle Lozano MD SUBJECTIVE: CHIEF COMPLAINT/REASON FOR VISIT: Abnormal Potassium (reports high potassium. had same last week. patient feels very well otherwise. ) HISTORY OF PRESENT ILLNESS: 74 YO male presents w/ noted hyperkalemia that was noted on f/u lab draw after a similar episode last week. He reports a K+ of 6.5 today and states that he has no complaints or other sxs at this time. Patient is currently on lisinopril, however, spoke w/ PCP who felt that this was driving up his K andhas now stopped this as of today. He also takes metformin. History provided by: Patient and significant other Abnormal Lab Time since result: 4 hours Patient referred by: PCP Resulting agency: Internal Result type: chemistry Chemistry: Potassium: High REVIEW OF SYSTEMS: Constitutional: Negative for chills and fever. HENT: Negative for congestion and sore throat. Respiratory: Negative for cough and shortness of breath. Cardiovascular: Negative for chest pain. Gastrointestinal: Negative for abdominal pain, diarrhea, nausea and vomiting. Genitourinary: Negative for dysuria and hematuria. Musculoskeletal: Negative for back pain. Skin: Negative for rash. Neurological: Negative for numbness and headaches. Psychiatric/Behavioral: Negative for confusion. ALLERGIES/MEDICATIONS: Reviewed in medical record PAST MEDICAL/FAMILY/SOCIAL HISTORY: Medical History: Past Medical History: Diagnosis Date ??? Arrest Cardiac (HCC) ??? Coronary Artery Disease (Unspecified) ??? Diabetes Mellitus NOS ??? History Of Falling ??? Hyperlipidemia ??? Hypertension NOS ??? Infection Helicobacter Pylori ??? Myocardial Infarction Acute (HCC) ??? Pancreatitis Chronic (HCC) ??? Proteinuria ??? Skin Cancer (Primary) NOS Patient Active Problem List Diagnosis Date Noted ??? History Of Falling 10/18/2017 ??? Proteinuria 12/02/2015 ??? Myocardial Infarction Acute (HCC) 11/09/2015 ??? Skin Cancer (Primary) NOS 11/09/2015 ??? Gout 01/22/2014 ??? Infection Helicobacter Pylori 07/24/2013 ??? Pancreatitis Chronic (HCC) 07/16/2013 ??? Coronary Artery Disease (Unspecified) 03/10/2011 ??? Diabetes Mellitus Type 2 (HCC) 03/10/2011 ??? Family History Coronary Artery Disease 08/12/2009 ??? Hypertension Benign Renovascular 08/12/2009 ??? Arrest Cardiac (HCC) 08/12/2009 ??? Coronary Stent Status Post 08/12/2009 ??? Hyperlipidemia 08/12/2009 Surgical History: Past Surgical History: Procedure Laterality Date ??? MOUTH SURGERY ??? OSTECTOMY OF CALCANEUS FOR SPUR N/A 02/23/2007 Excision of calcaneal spur ??? PLACEMENT OF STENT IN CARDIAC CONDUIT 2005 Family History: Reviewed in chart Social History: Social History Socioeconomic History ??? Marital status: Spouse name: None ??? Number of children: None ??? Years of education: None ??? Highest education level: None Occupational History ??? None Social Needs ??? Financial resource strain: None ??? Food insecurity: Worry: None Inability: None ??? Transportation needs: Medical: None Non-medical: None Tobacco Use ??? Smoking status: Never Smoker ??? Smokeless tobacco: Never Used Substance and Sexual Activity ??? Alcohol use: No ??? Drug use: No ??? Sexual activity: None Lifestyle ??? Physical activity: Days per week: None Minutes per session: None ??? Stress: None Relationships ??? Social connections: Talks on phone: None Gets together: None Attends uatsdin service: None Active member of club or organization: None Attends meetings of clubs or organizations: None Relationship status: None ??? Intimate partner violence: Fear of current or ex partner: None Emotionally abused: None Physically abused: None Forced sexual activity: None Other Topics Concern ??? None Social History Narrative ??? None Social History Substance and Sexual Activity Alcohol Use No Social History Substance and Sexual Activity Drug Use No OBJECTIVE: INITIAL VITAL SIGNS: Initial Vitals Temperature Pulse Rate Heart Rate Resp Rate Blood Pressure SpO2 04/01/19 2134 04/01/19 2134 04/01/19 2200 04/01/19 2134 04/01/19213304/01/192133 36.5 ??C 64 62 17 143/73 98 % Pain Score 04/01/19 2323 0 - No pain PHYSICAL EXAMINATION: Constitutional: No distress. HENT: Head: Normocephalic and atraumatic. Nose: Nose normal. Mouth/Throat: Mucous membranes are moist. Eyes: Conjunctivae and EOM are normal. Neck: Normal range of motion. Neck supple. Cardiovascular: Normal rate and regular rhythm. No murmur heard. Pulmonary/Chest: Effort normal. No tachypnea. No respiratory distress. Abdominal: Soft. He exhibits no distension. There is no tenderness. Musculoskeletal: Normal range of motion. He exhibits no tenderness or deformity. Neurological: He is alert and oriented to person, place, and time. Skin: Skin is warm, dry and normal color. He is not diaphoretic. Psychiatric: He has a normal mood and affect. His behavior is normal. Nursing note and vitals reviewed. ED COURSE: Final Diagnoses: as of Apr 02 46 Hyperkalemia INTERVENTIONS: Medications NaCl 0.9 % bolus 500 mL (0 mL intravenous Stopped 04/01/192253) furosemide injection 20 mg (LASIX) (20 mg intravenous Given 04/01/198) LABS: Labs Reviewed BASIC METABOLIC PANEL, S/P - Abnormal Result Value Potassium, P 5.6 (*) Sodium, P 136 Chloride, P 109 (*) Bicarbonate, P 20 (*) Anion Gap, P 7 BUN, P 34 (*) Creatinine, P 1.37 (*) eGFR Black 58 (*) eGFR Non-Black 50 (*) Calcium, Total, P 8.9 Glucose, P 289 (*) CBC WITHOUT DIFFERENTIAL, B - Abnormal Hemoglobin 13.3 Hematocrit 41.7 Erythrocytes 3.88 (*) MCV 107.5 (*) RBC Distrib Width 12.7 Platelet Count 159 Leukocytes 4.9 ECG: Ecg 12 Lead Result Date: 03/29/2019 Normal sinus rhythm Low voltage QRS Low anterolateral forces Cannot rule out Inferior infarct When compared with ECG of 10-APR-2015 10:45, Possible V2-V3 interchange Minimal criteria for Inferior infarct are now present Reviewed by MILAGROS Wilburn RADIOLOGY: No orders to display ASSESSMENT AND PLAN: Impression and Plan 74-year-old male presents with concerns of hyperkalemia. The reported lab draw of 6.5 was either savannah hemolyzed or was elevated but his somewhat self- resolved. He does have mild hyperkalemia still, but considerably lower than this. I gave 500 cc of saline and 20 mg of IV Lasix to eliminate this. I donot think he needs further cellular shifting at that level. EKG was reassuring as well. He is feeling fine and asymptomatic. Given the renal status of a creatinine of 1.38, I do not think that this is the culprit. Rather, the use of lisinopril in the use of metformin would be the biggest triggers for him to have issues with hyperkalemia. As per the conversation he had earlier today, I do think that stopping lisinopril at this time makes sense. I think he should follow up with the PCP to figure out if a replacement for this will be warranted. I also hope we can address whether not the metformin works from after this change, or if the issues with hyperkalemia are ongoing related to this other etiology.. I personally performed the services described in this documentation, as scribed in my presence, and it is both accurate and complete. DIAGNOSIS: Final diagnoses: [E87.5] Hyperkalemia ED DISCHARGE MEDS: ED Prescriptions None DISPOSITION: FOLLOW UP: Kyle Lozano M.D. 04/02/19 0046 documented in this encounter Plan of Treatment Not on filedocumented as of this encounter Procedures Procedure Name Priority Date/Time Associated Diagnosis Comme nts CBC WITHOUT STAT 04/01/2019 10:25 PM Results for this DIFFERENTIAL, B CDT procedure ar e in the results section. BASIC METABOLIC STAT 04/01/2019 10:25 PM Resul ts for this PANEL, S/P CDT procedure are i n the results section. ECG STAT 04/01/2019 9:38 PM Results f or this CDT procedure are i n the results section. documented in this encounter Results (ABNORMAL) CBC without Differential (04/01/2019 10:25 PM CDT) [facility] Method Time Signature Hemoglobin 13.3 13.2 - 04/01/2019 16.6 g/dL 10:29 PM CDT Hematocrit 41.7 38.3 - 04/01/2019 48.6 % 10:29 PM CDT Erythrocytes 3.88 (L) 4.35 - 04/01/2019 5.65 10:29 PM CDT x10(12)/L MCV 107.5 (H) 78.2 - 04/01/2019 97.9 fL 10:29 PM CDT RBC Distrib Width 12.7 11.8 - 04/01/2019 14.5 % 10:29 PM CDT Platelet Count 159 135 - 317 04/01/2019 x10(9)/L 10:29 PM CDT Leukocytes 4.9 3.4 - 9.6 04/01/2019 x10(9)/L 10:29 PM CDT Specimen Anatomical Collection Method Collection Time Receive d Time (Source) Location / / Volume Laterality Blood (Blood, 04/01/2019 10:25 04/01/2019 Venous) PM CDT 10:27 PM CDT Kyle Lozano M.D. LAB BLOOD ADD-ON Performing Organization Address City/State/[facility] Code Phon e Number [address] [phone] LAB (ABNORMAL) BMP (Basic Metabolic Panel) (04/01/2019 10:25 PM CDT) Analysis Performed At Patho logist Time Signature Potassium, P 5.6 (H) 3.6 - 5.2 04/01/2019 mmol/L 10:47 PM CDT Sodium, P 136 135 - 145 04/01/2019 mmol/L 10:47 PM CDT Chloride, P 109 (H) 98 - 107 04/01/2019 mmol/L 10:47 PM CDT Bicarbonate, P 20 (L) 22 - 29 04/01/2019 mmol/L 10:47 PM CDT Anion Gap, P 7 7 - 15 04/01/2019 10:47 PM CDT BUN (Blood Urea 34 (H) 8 - 24 04/01/2019 Nitrogen), P mg/dL 10:47 PM CDT Creatinine 1.37 (H) 0.74 - 04/01/2019 1.35 mg/dL 10:47 PM CDT eGFR-Black/Afri 58 (L) >=60 04/01/2019 can Kosovan mL/min/BSA 10:47 PM CDT Comment: ----ADDITIONAL INFORMATION---- Estimated GFR calculated using the 2009 CKD_EPI creatinine equation. eGFR Non-Black/ 50 (L) >=60 mL/min/BSA 04/01/2019 10:47 PM CDT Comment: ----ADDITIONAL INFORMATION---- Estimated GFR calculated using the 2009 CKD_EPI creatinine equation. Calcium, Total, P 8.9 8.8 - 10.2 mg/dL 04/01/2019 10:4 7 PM CDT Glucose, P 289 (H) 70 - 140 mg/dL 04/01/2019 10:47 PM CDT Specimen Anatomical Collection Method Collection Time Receive d Time (Source) Location / / Volume Laterality Blood (Blood, 04/01/2019 10:25 04/01/2019 Venous) PM CDT 10:27 PM CDT Kyle Lozano M.D. LAB BLOOD ADD-ON Performing Organization Address City/State/ZIP Code Phon e Number [address] [phone] LAB ECG 12 Lead (04/01/2019 9:38 PM CDT) P athologist Signature Ventricular Rate 60 BPM MUSE ECG/Min [place] Interval 216 ms MUSE QRSD Interval 86 ms MUSE QT Interval 386 ms MUSE QTC Interval 386 ms MUSE P [place] 10 degrees MUSE R [place] -43 degrees MUSE T Wave [place] 14 degrees MUSE Specimen Anatomical Collection Method Collection Time Receive d Time (Source) Location / / Volume Laterality 04/01/2019 9:38 PM 9 9:06 CDT AM CDT Impressions MUSE - 04/02/2019 9:06 AM CDT Sinus rhythm with 1st degree A-V block Left axis deviation Low voltage QRS Low anterolateral forces Cannot rule out Inferior infarct When compared with ECG of 28-MAR-2019 16 :55, [place] interval has increased Reviewed by MILAGROS Hough Narrative This result has an attachment that is no t available. Procedure Note Kurt Dhaliwal M.D. - 04/02/2019Forma tting of this note might be different from the original. IMPRESSION: Sinus rhythm with 1st degree A-V block Left axis deviation Low voltage QRS Low anterolateral forces Cannot rule out Inferior infarct When compared with ECG of 28-MAR-2019 16 :55, [place] interval has increased Reviewed by MILAGROS Hough Kyle Lozano M.D. ECG ORDERABLES Performing Organization Address City/State/ZIP Code Phon e Number MUSE MUSE NA documented in this encounter Visit Diagnoses Diagnosis Hyperkalemia - Primary documented in this encounter Administered Medications Inactive Administered Medications - up to 3 most recent administrations Medication Order MAR Action Action Date Dose Rate Site furosemide injection 20 mg (LASIX) Given 04/01/2019 11:18 PM CDT 20 mg 20 mg, intravenous, Once, On Mon04/01/19 at 2254, For 1 dose, Adults: Doses less than 120 mg: IV push over 20 mg/minute. Doses 120 mg or greater: IVPB at 4 mg/minute. Peds/Neonates: Doses less than 120 mg over 0.5 mg/kg/minute. Doses 120 mg or greater: IVPB at 4 mg/minute. NaCl 0.9 % bolus 500 mL New Bag 04/01/2019 10:07 PM CDT 500 mL 500 mL/hr 500 mL, intravenous, at 500 mL/hr, Administer over 1 Hours, Once, On Mon04/01/19 at 2206, For 1 dose documented in this encounter Active and Recently Administered Medications Times are shown in CDT. Scheduled Medication Order 03/30/2019 03/31/2019 04/01/2019 furosemide injection 20 mg (LASIX) (COMPLETED) 2317 (Given - Provider: Rl Enrique R.N.) 20 mg, intravenous, Once, Mon04/01/19 at 2254, For 1 dose, Adults: Doses less than 120 mg: IV push over 20 mg/minute. Doses 120 mg or greater: IVPB at 4 mg/minute. Peds/Neonates: Doses less than 120 mg over 0.5 mg/kg/minute. Doses 120 mg or greater: IVPB at 4 mg/min circle. NaCl 0.9 % bolus 500 mL (COMPLETED) 2206 (New Bag - Provider: Angela Herrera R.N.)2254 (Stopped - Provider: Rl Enrique R.N.) 500 mL, intravenous, at 500 mL/hr, Admin ister over 1 Hours, Once, Mon04/01/19 at 2206, For 1 dose documented in this encounter Care Teams Patient Care Technician Relationship Specialty Start Date End Date Cathy Mccoy M.D. PCP - General 02/23/17 12/18/19 documented as of this encounter
--- OUTSIDE RECORDS SUMMARY | 2022-05-24 18:25 | XMS_ITS | Encounter Summary ---
:1945 Author Organization [facility] Address [address] [place] [address] Care Team Providers Name Role Phone Cathy Mccoy M.D. Primary Care Provider Unavailable Reason for Referral MRI/CAT/PET Scan (Routine) - Closed Specialty Diagnoses / Procedures Referred By Contact Refer red To Contact Radiology Diagnoses Pancreatitis Chronic (HCC) Evan Zapata M.D., [facility] Region Procedures MR Abdomen MRCP without and with IV Contrast UT MRI ABDOMEN WO/W CNTRST HC MRI ABDOMEN WO/W CNTRST UT MRI ABDOMEN WO/W CNTRST Ph.D. [address] [place] [phone] Referral ID Status Reason Start Date Expiration Date Visits Requ ested Visits Authorized [id number] Closed 03/28/2019 03/27/2020 1 1 Reason for Visit MRI/CAT/PET Scan (Routine) - Closed Specialty Diagnoses / Procedures Referred By Contact Refer red To Contact Radiology Diagnoses Pancreatitis Chronic (HCC) Evan Zapata M.D., [facility] Region Procedures MR Abdomen MRCP without and with IV Contrast UT MRI ABDOMEN WO/W CNTRST HC MRI ABDOMEN WO/W CNTRST UT MRI ABDOMEN WO/W CNTRST Ph.D. [address] [place] [phone] Referral ID Status Reason Start Date Expiration Date Visits Requ ested Visits Authorized [id number] Closed 03/28/2019 03/27/2020 1 1 Encounter Details Date Type Department Care Team Description 04/03/2019 Hospital Encounter Department of [facility], nissa Pacheco, Ph.D. [place] [place] [address] [facility] [phone] Social History Tobacco Use Types Packs/Day Years [...] More than 4 times per year 06/14/2019 faith services? Do you belong to any clubs [...] daily. Use to 400 strip 3 09/06/2019 ([employer] ULTRA BLUE test 4-5 times a day [...] gauge x TWICE DAILY E11.9 01/24 syringe pwypgg-gbsnvsya-lgozlu Take 2 capsules by 180 capsule 11 [...] Priority Date/Time Associated Comments Diagnosis MR ABDOMEN MRCP RAD - Routine 04/03/2019 2:00 Pancreatitis Results for this WITHOUT AND WITH (most inpatients PM CDT Chronic (HCC) proced ure are in IV CONTRAST and all the results outpatients) section. documented in this encounter Results MR Abdomen MRCP without and with IV Contrast (04/03/2019 2:00 PM CDT) Anatomical Region Laterality Modality Abdomen, Abdominal RST LOS, Abdominal ARZ LOS, N/A Magnetic Resonance Abdominal FLA LOS Specimen (Source) Anatomical Collection Method Collection Time Re ceived Time Location / / Volume Laterality 04/03/2019 3:11 PM CDT Impressions 04/03/2019 3:21 PM CDT 1. Persistent diffuse pancreatic ductal dilatation with distal filling defect which may represent obstructing calcifie d stone given numerous pancreatic calcifications on prior CT. 2. No discrete mass within atrophied tripp creatic parenchyma. 3. No biliary ductal dilatation. Narrative 04/03/2019 3:21 PM CDT EXAM: MR ABDOMEN MRCP WITHOUT AND WITH IV CONTRAST COMPARISON: CT 01/29/2016, previous MRI 1 10/21/2014. FINDINGS: Liver normal size and contour. No focal hepatic lesion identified. Spleen, adrenal glands, gallbladder with in normal limits. Stable simple appearing cysts within both kidneys. Persistent diffuse pancreatic ductal dil atation measuring up to 10 mm. Numerous pancreatic calcifications better demonst rated on prior CT, which may account for filling defect within distal pancreatic duct best appreciated on coronal image 15 series 10, similar-appearing finding at this location on prior MRI. Persistent diffuse pancreatic atrophy. N o biliary ductal dilatation. Abdominal aorta normal diameter. Visualized bowel normal diameter. No upp er abdominal ascites. Degenerative findings of the spine. Procedure Note Price Bradford M.D. - 04/03/2019For matting of this note might be different from the original. EXAM: MR ABDOMEN MRCP WITHOUT AND WITH I V CONTRAST COMPARISON: CT 01/29/2016, previous MRI 1 10/21/2014. FINDINGS: Liver normal size and contour. No focal hepatic lesion identified. Spleen, adrenal glands, gallbladder with in normal limits. Stable simple appearing cysts within both kidneys. Persistent diffuse pancreatic ductal dil atation measuring up to 10 mm. Numerous pancreatic calcifications better demonst rated on prior CT, which may account for filling defect within distal pancreatic duct best appreciated on coronal image 15 series 10, similar-appearing finding at this location on prior MRI. Persistent diffuse pancreatic atrophy. N o biliary ductal dilatation. Abdominal aorta normal diameter. Visualized bowel normal diameter. No upp er abdominal ascites. Degenerative findings of the spine. IMPRESSION: 1. Persistent diffuse pancreatic ductal dilatation with distal filling defect which may represent obstructing calcifie d stone given numerous pancreatic calcifications on prior CT. 2. No discrete mass within atrophied tripp creatic parenchyma. 3. No biliary ductal dilatation. Evan Zapata M.D., Ph.D. IMG MRI PROCEDURES documented in this encounter Visit Diagnoses Diagnosis Pancreatitis Chronic (HCC) documented in this encounter Administered Medications Inactive Administered Medications - up to 3 most recent administrations Medication Order MAR Action Action Date Dose Rate Site gadobutrol injection 0.01-30 Given 04/03/2019 1:43 PM CDT 10 mL Right Hand mL (GADAVIST) 0.01-30 mL, intravenous, Once in imaging, contrast, Starting on Mon04/03/19 at 1412, For 1 dose, Imaging Protocol Orders, Dose per Radiant Medication Guidelines documented in this encounter Care Teams Flavor Room Worker Relationship Specialty Start Date End Date Cathy Mccoy M.D. PCP - General 02/23/17 12/18/19 documented as of this encounter
--- OUTSIDE RECORDS SUMMARY | 2022-05-24 18:25 | XMS_ITS | Encounter Summary ---
:1945 Author Organization [facility] Address [address] [place] [address] Care Team Providers Name Role Phone Cathy Mccoy M.D. Primary Care Provider Unavailable Encounter Details Date Type Department Care Team Description 04/18/2019 Clinical Communication Department of [facility], Gastroenterology in [place], [place] Junior, Ph.D. [address] [address] [place] [address] [phone] Social History Tobacco Use Types Packs/Day [...] of the More than 4 times pe year 06/14/2019 clubs or organizations you belong [...] Telephone Encounter - Diana Radford R.N. - 04/18/2019 11:52 AM CDT Reviewed letter to patient from Dr. Zapata- increase size of RBC (red blood cells) up to MCV 107 (normal is less than 100). Your B12 is normal. I ordered another blood test (checking folate and thyroid function) to see if any other reason to cause the increase of RBC size. If still unclear, I will suggest a Hematology consult opinion for this macrocytosis (increase of RBC size). Patient verbalized understanding and had no further questions. Telephone Encounter - Sarika Sanchez - 04/18/2019 10:39 AM CDT Please do not reply to sender,emails are not monitored. Thank you. If you need a prescription refill please call your pharmacy. Please allow 3 business days for processing. Expert RN: N/A (Med Refill Only) Call Center Template: ??? May we leave a message for you on this phone? yes What can I help you with today? Pt had blood work done this morning. He thought he was just having aPotassium done, but he actually had other orders too and he is wondering why. He doesn't understand why we sherly for the other things. Please call him back to advise. ??? If Medication Refill: o What is [...] you with today? Thank you for calling [facility]. documented in this encounter Plan of Treatment Not on filedocumented as of this encounter Visit Diagnoses Not on filedocumented in this encounter Care Teams Bench Loom Weaver Relationship Specialty Start Date End Date Cathy Mccoy M.D. PCP - General 02/23/17 12/18/19 documented as of this encounter
--- OUTSIDE RECORDS SUMMARY | 2022-05-24 18:25 | XMS_ITS | Encounter Summary ---
:1945 Author Organization [facility] Address [address] [place] [address] Care Team Providers Name Role Phone Cathy Mccoy M.D. Primary Care Provider Unavailable Reason for Visit Reason Onset Date Comments Med Refill 04/08/2019 Encounter Details Date Type Department Care Team Description 04/08/2019 Clinical Communication Department of [facility], Med Refill Gastroenterology in [place], [place] Junior, Ph.D. [facility] [address] [place] [address] [phone] Social History Tobacco Use Types Packs/Day [...] Telephone Encounter - Cristela Weinstein L.P.N. - 04/09/2019 2:29 PM CDT PA requested. Telephone Encounter - Cristela Weinstein L.P.N. - 04/08/2019 8:59 AM CDT SAMANTHA: 03/28/19 Next Office Visit: 07/04/19 1. Chronic (atrophic) pancreatitis (remote alcoholics hx) with calcified and P duct stone 8 mm in last MRCP 2014; clinically, stable, no abdominal pain; on Creon (2 pills with meals three times a day) with well control, except sometimes loose stool and bloating Telephone Encounter - Chanda Luna - 04/08/2019 8:52 AM CDT Please do not reply to sender,emails are not monitored. Thank you. If you need a prescription refill please call your pharmacy. Please allow 3 business days for processing. Expert RN: N/A (Med Refill Only) Call Center Template: ??? May we leave a message for you on this phone? yes What can I help you with today? If Medication Refill: o What is the name and strength of the medication? CREON o What do you use the medication for? o How many pills do you have left? o What pharmacy do you use (include location)? [facility] I will send this information to the appropriate staff member who will look into your concern. Is there anything else I can help you with today? Thank you for calling [facility]. documented in this encounter Plan of Treatment Not on filedocumented as of this encounter Visit Diagnoses Diagnosis Pancreatitis Chronic (HCC) documented in this encounter Care Teams Oval Or Circular Glass Cutter Relationship Specialty Start Date End Date Cathy Mccoy M.D. PCP - General 02/23/17 12/18/19 documented as of this encounter
--- OUTSIDE RECORDS SUMMARY | 2022-05-24 18:25 | XMS_ITS | Encounter Summary ---
:1945 Author Organization [facility] Address [address] [place] [address] Care Team Providers Name Role Phone Cathy Mccoy M.D. Primary Care Provider Unavailable Reason for Visit Physical Therapy (Routine) - Canceled Specialty Diagnoses / Procedures Referred By Contact Refer red To Contact Diagnoses Pain Leg Left [facility] [place] [facility] Procedures PT Ongoing treatment [address] [place] [address] Referral ID Status Reason Start Date Expiration Date Visits V isits Requested Authorized [id number] Canceled 05/23/2019 09/10/2019 99 19 Encounter Details Date Type Department Care Team Description 05/30/2019 Clinical Support Department of Physical Mike Holbrook M.D. [address] [place] [address] Pain Leg Left Kassidy and Benja Brown, PKamilaTKamila [address] [place] [address] Rehabilitation in [place], [place] [address] [place] [address] Social History Tobacco Use Types Packs/Day Years [...] encounter Progress Notes Benja Brown, P.T. - 05/30/2019 9:00 AM CDT Physical Therapy Outpatient Treatment Note SUBJECTIVE Patient's Name: Jorge Crar Carlosleigha Referring Provider: Mike Holbrook M.D. Visit Diagnosis: 1. Pain Leg Left Reason for Referral: Left hamstring strain Onset Date: 05/09/19 Payor: [employer] / Plan: [employer] FOR [employer] HMO / Product Type: HMO / No data recorded Epic Visit Count: 2 Patient comments: patient is doing well no concerns or complaints today. He states compliance with his home program. OBJECTIVE Pain: Pain Assessment Pain Assessment: 0-10 Numeric Pain Intensity Scale Pain Score: 4 Pain Location: Leg Pain Orientation: Left TREATMENT [...] in 8 weeks Goals 1 through 4 in progress Plan Treatment/Interventions: Therapeutic exercise Plan: Continue with current plan Plan for next session: Patient will continue with current plan of care and return for [facility] as tolerated and deemed appropriate by therapist. Time Spent with Patient Therapeutic Exercise (min): 30 min Time Calculation Total Timed Units (min): 30 min Total Treatment Time (min): 30 min Functional G-code Worksheet Benja Brown PKamilaTKamila Department of Physical Medicine and Rehabilitation in [address] [address] Dept: [phone] documented in this encounter Plan of Treatment Not on filedocumented as of this encounter Visit Diagnoses Diagnosis Pain Leg Left documented in this encounter Care Teams Farm Crops Teacher Relationship Specialty Start Date End Date Cathy Mccoy M.D. PCP - General 02/23/17 12/18/19 documented as of this encounter
--- OUTSIDE RECORDS SUMMARY | 2022-05-24 18:25 | XMS_ITS | Encounter Summary ---
:1945 Author Organization [facility] Address [address] [place] [address] Care Team Providers Name Role Phone Cathy Mcocy M.D. Primary Care Provider Unavailable Encounter Details Date Type Department Care Team Description 04/08/2019 Clinical Communication Department of [facility], Gastroenterology in [place], [place] Junior, Ph.D. [address] [address] [place] [address] [phone] Social History Tobacco Use Types Packs/Day [...] More than 4 times per year 06/14/2019 adventist services? Do you belong to any clubs [...] Miscellaneous Notes Telephone Encounter - Cristela Weinstein L.PKamilaN. - 04/08/2019 8:54 AM CDT See alternate thread, patient called back and gave name of medication and pharmacy needed. Telephone Encounter - Theresa Leigh - 04/08/2019 8:02 AM CDT Patient left a message on the scheduling line needing a prescription refill, he did not state which prescription. Please call patient back to discuss. documented in this encounter Plan of Treatment Not on filedocumented as of this encounter Visit Diagnoses Not on filedocumented in this encounter Care Teams Stone Setter Apprentice Relationship Specialty Start Date End Date Cathy Mccoy M.D. PCP - General 02/23/17 12/18/19 documented as of this encounter
--- OUTSIDE RECORDS SUMMARY | 2022-05-24 18:25 | XMS_ITS | Encounter Summary ---
:1945 Author Organization [facility] Address [address] [place] [address] Care Team Providers Name Role Phone Cathy Mccoy M.D. Primary Care Provider Unavailable Reason for Visit Appointment Request (Routine) - Closed Specialty Diagnoses / Procedures Referred By Contact Refer red To Contact Family Medicine Referral ID Status Reason Start Date Expiration Date Visits Requ ested Visits Authorized [id number] Closed 04/01/2019 03/31/2020 1 Encounter Details Date Type Department Care Team Description 04/01/2019 Office Visit Department of Family Camilla Mccoy (Primary Medicine in [place]) [address] [address] Social History Tobacco Use Types [...] or relatives? How often do you attend rastafarian or More than 4 times per year 06/14/2019 anabaptist services? Do you belong to any clubs or Yes 06/14/2019 organizations such as rastafarian groups, unions, fraternal or athletic groups, or [...] Sign Reading Time Taken Comments Blood Pressure 114/66 04/01/2019 3:47 PM CDT Pulse 68 04/01/2019 3:47 PM CDT Temperature 37 ??C (98.6 ??F) 04/01/2019 3:47 PM CDT Respiratory Rate 16 04/01/2019 3:47 PM CDT Oxygen Saturation - - Inhaled Oxygen Concentration - - Weight 112 kg (247 lb) 04/01/2019 3:47 PM CDT Height - - Body Mass Index 30.07 03/28/2019 4:59 PM CDT documented in this encounter Progress Notes Cathy Mccoy M.D. - 04/01/2019 4:00 PM CDT SUBJECTIVE CHIEF COMPLAINT/REASON FOR VISIT No chief complaint on file. HISTORY OF PRESENT ILLNESS Jorge Chance is a 74 y.o. male who presents to follow-up for hyperkalemia. He was seen by Gastroenterology because of his pancreas and labs were done and it was noted that he had a potassium of 6. He went to the emergency room due to this and his potassium came back 5.3. He is here for recheck. They do have an MRI with and without dye scheduled for 04/03. His GFR on the most recent basic metabolic panel was 55. His sugars are between 100 and 105 in the morning and occasionally goes down to 70 so the potassium is a because of extremely high glucose. He feels just fine and has not had any heart symptoms. REVIEW OF SYSTEMS See pertinent findings noted above in the History of Present Illness. MEDICAL HISTORY Patient Active Problem List Diagnosis ??? Family History Coronary Artery Disease ??? Hypertension Benign Renovascular ??? Pancreatitis Chronic (HCC) ??? Coronary Artery Disease (Unspecified) ??? Diabetes Mellitus Type 2 (HCC) ??? Arrest Cardiac (HCC) ??? Myocardial Infarction Acute (HCC) ??? Coronary Stent Status Post ??? Gout ??? Infection Helicobacter Pylori ??? Hyperlipidemia ??? Proteinuria ??? Skin Cancer (Primary) NOS ??? History Of Falling SURGICAL HISTORY Past Surgical History: Procedure Laterality [...] (two) times a day. 180tablet 2 ??? HUMALOG MIX 75-25,U-100,INSULN 100 unit/mL (75-25) injection INJECT 0.9 ML (90 UNITS) UNDER THE SKIN TWICE A DAY (Patient taking differently: 84-86 Units. ) 60 mL 4 ??? ibuprofen (for_ADVIL,MOTRIN) 200 mg tablet Take 2 tablets by mouth every 4 (four) hours as needed. ??? insulin syringe-needle U-100 1 mL 31 gauge x 5/16 syringe USE TO INJECT INSULIN TWICE DAILY E11.9 200 each 3 ??? pqysxv-sspihuhg-nwdpofp (CREON) 24,000-76,000-120,000 Unit per capsule Take 2 capsules by mouth 3 [...] day as needed. OBJECTIVE VITAL SIGNS BP 114/66 (BP Location: Right arm, Patient Position: Sitting, Cuff Size: Regular) Pulse 68 Temp 37 ??C (Temporal) Resp 16 Wt 112 kg BMI 30.07 kg/m?? PHYSICAL EXAMINATION General: Alert, in no apparent distress, nontoxic appearing. Mood and affect were appropriate to thesituation. Heart: S1, S2 with no significant murmurs, rubs or gallops. Regular rate and rhythm. Lungs: Breath sounds were clear throughout bilaterally. Respirations were regular, nonlabored. Extremities: Without redness, swelling, or edema. ASSESSMENT / PLAN #1 Hyperkalemia We are going to check a potassium today with a basic metabolic panel to see his kidney function also, but also because he is having contrast in 2 days we want to check his potassium again so we will have him come in on Monday to get that, the . We are also going to stop his lisinopril as that could be causing his potassium to increase. All have him come back in a month to recheck his blood pressures and his potassium and kidney function. - BMP (Basic Metabolic Panel); Future; Expected date: 04/05/2019 - BMP (Basic Metabolic Panel) Addendum: Potassium recheck was 6.5 in we again sent him to the emergency room where his potassium was still high but not critically high. ADMINISTRATIVE BILLING Total time spent 20 minutes, 15 minutes spent in counseling and coordination of care. documented in this encounter Miscellaneous Notes Result Encounter Note - Cathy Mccoy M.D. - 04/01/2019 4:00 PM CDT Called patient when contacted about critical result and told him could go to ER and he chooses to [facility] and did call 1 call and they will contact the ER. documented in this encounter Plan of Treatment Not on filedocumented as of this encounter Procedures Procedure Name Priority Date/Time Associated Diagnosis Comme nts BASIC METABOLIC Routine 04/01/2019 4:40 PM Hyperkalemia Result s for this PANEL, S/P CDT procedure are i n the results section. documented in this encounter Results (ABNORMAL) BMP (Basic Metabolic Panel) (04/04/2019 9:26 AM CDT) Analysis Performed At Patho logist Time Signature Potassium, S 5.4 (H) 3.6 - 5.2 04/04/2019 mmol/L 9:52 AM CDT Sodium, S 139 135 - 145 04/04/2019 mmol/L 9:52 AM CDT Chloride, S 105 98 - 107 04/04/2019 mmol/L 9:52 AM CDT Bicarbonate, S 22 22 - 29 04/04/2019 mmol/L 9:52 AM CDT Anion Gap 12 7 - 15 04/04/2019 9:52 AM CDT BUN (Blood Urea 39 (H) 8 - 24 04/04/2019 Nitrogen), S mg/dL 9:52 AM CDT Creatinine 1.43 (H) 0.74 - 04/04/2019 1.35 mg/dL 9:52 AM CDT eGFR-Non 48 (L) >=60 04/04/2019 Black/ mL/min/BSA 9:52 AM CDT Nigerian Comment: ----ADDITIONAL INFORMATION---- Estimated GFR calculated using the 2009 CKD_EPI creatinine equation. eGFR-Black/ 55 (L) >=60 mL/min/BSA 2018 9:52 AM CDT Comment: ----ADDITIONAL INFORMATION---- Estimated GFR calculated using the 2009 CKD_EPI creatinine equation. Calcium, Total, S 9.9 8.8 - 10.2 mg/dL 04/04/2019 9:52 AM CDT Glucose, S 81 70 - 140 mg/dL 04/04/2019 9:52 AM CDT Specimen Anatomical Collection Method Collection Time Receive d Time (Source) Location / / Volume Laterality Blood (Blood, 04/04/2019 9:26 AM 04/04/20 19 9:27 Venous) CDT AM CDT Cathy Mccoy M.D. LAB BLOOD ADD-ON Performing Organization Address City/State/ZIP Code Phon e Number [facility]- [address] [place] [phone] [facility] (ABNORMAL) BMP (Basic Metabolic Panel) (04/01/2019 4:40 PM CDT) Analysis Performed At Patho logist Time Signature Potassium, S 6.5 (CH) 3.6 - 5.2 04/01/2019 mmol/L 8:27 PM CDT Sodium, S 139 135 - 145 04/01/2019 mmol/L 8:27 PM CDT Chloride, S 107 98 - 107 04/01/2019 mmol/L 8:27 PM CDT Bicarbonate, S 22 22 - 29 04/01/2019 mmol/L 8:27 PM CDT Anion Gap 10 7 - 15 04/01/2019 8:27 PM CDT BUN (Blood Urea 36 (H) 8 - 24 04/01/2019 Nitrogen), S mg/dL 8:27 PM CDT Creatinine 1.38 (H) 0.74 - 04/01/2019 1.35 mg/dL 8:27 PM CDT eGFR-Non 50 (L) >=60 04/01/2019 Black/ mL/min/BSA 8:27 PM CDT Nigerian Comment: ----ADDITIONAL INFORMATION---- Estimated GFR calculated using the 2009 CKD_EPI creatinine equation. eGFR-Black/ 57 (L) >=60 mL/min/BSA 2018 8:27 PM CDT Comment: ----ADDITIONAL INFORMATION---- Estimated GFR calculated using the 2009 CKD_EPI creatinine equation. Calcium, Total, S 9.6 8.8 - 10.2 mg/dL 04/01/2019 8:27 PM CDT Glucose, S 133 70 - 140 mg/dL 04/01/2019 8:27 PM CDT Specimen Anatomical Collection Method Collection Time Receive d Time (Source) Location / / Volume Laterality Blood (Blood, 04/01/2019 4:40 PM 04/01/20 19 8:04 Venous) CDT PM CDT Cathy Mccoy M.D. LAB BLOOD ADD-ON Performing Organization Address City/State/ZIP Code Phon e Number [facility]- [address] [place] [address] [place], [place] [phone] [facility] documented in this encounter Visit Diagnoses Diagnosis Hyperkalemia - Primary documented in this encounter Care Teams Egg Processing Supervisor Relationship Specialty Start Date End Date Cathy Mccoy M.D. PCP - General 02/23/17 12/18/19 documented as of this encounter
--- OUTSIDE RECORDS SUMMARY | 2022-05-24 18:25 | XMS_ITS | Encounter Summary ---
:1945 Author Organization [facility] Address [address] [place] [address] Care Team Providers Name Role Phone Cathy Mccoy M.D. Primary Care Provider Unavailable Encounter Details Date Type Department Care Team Description 04/18/2019 Hospital Encounter Department of Laboratory Zaid Zapata, Macrocytosis Medicine in [place] Wise, Ph.D. [address] [place] [phone] Social History Tobacco Use Types Packs/Day Years [...] or relatives? How often do you attend restorationist or More than 4 times per year 06/14/2019 faith services? Do you belong to any clubs or Yes 06/14/2019 organizations such as restorationist groups, unions, fraternal or athletic groups, or [...] gauge x TWICE DAILY E11.9 01/24 syringe wfxcwj-ehysrggy-andema Take 2 capsules by 180 capsule 11 [...] Name Priority Date/Time Associated Diagnosis Comme nts THYROID-STIMULATING Routine 04/18/2019 9:02 AM Macrocytosis Re sults for this HORMONE-SENSITIVE CDT procedure are in (S-TSH) the results section. FOLATE, S Routine 04/18/2019 9:02 AM Macrocytosis Results f or this CDT procedure are i n the results section. documented in this encounter Results Folate (04/18/2019 9:02 AM CDT) P athologist Signature Folate, S >20.0 >=4.0 mcg/L 04/18/2019 6:46 PM CDT Comment: Biotin has been identified by the murphy whitney as a potential interfering substance. ??Higher concentr ations of biotin may be found in multivitamins, hair/nail supple ments, and workout supplements. ??If the result does not [facility] clinical observations, repeat testing after patient refrains fr om the use of supplements for at least 12 hours. Specimen Anatomical Collection Method Collection Time Receive d Time (Source) Location / / Volume Laterality Blood (Blood, 04/18/2019 9:02 AM 04/18/20 19 2:12 Venous) CDT PM CDT Evan Zapata M.D., Ph.D. LAB BLOOD ADD-ON Performing Organization Address City/[facility] Code Phon e Number [facility] [address] [place] [address] LAB S-TSH (Thyroid-Stimulating Hormone - Sensitive) (04/18/2019 9:02 AM CDT) athologist Signature TSH, Sensitive 3.7 0.3 - 4.2 04/18/2019 mIU/L 9:59 AM CDT Comment: Biotin has been identified by the murphy whitney as a potential interfering substance. ??Higher concentr ations of biotin may be found in multivitamins, hair/nail supple ments, and workout supplements. ??If the result does not [facility] clinical observations, repeat testing after patient refrains fr om the use of supplements for at least 12 hours. Specimen Anatomical Collection Method Collection Time Receive d Time (Source) Location / / Volume Laterality Blood (Blood, 04/18/2019 9:02 AM 04/18/20 19 9:21 Venous) CDT AM CDT Evan Zapata M.D., Ph.D. LAB BLOOD ADD-ON Performing Organization Address City/State/[facility] Code Phon e Number [facility]- [address] [place] [phone] [facility] documented in this encounter Visit Diagnoses Diagnosis Macrocytosis documented in this encounter Care Teams Support Team Assoc Relationship Specialty Start Date End Date Cathy Mccoy M.D. PCP - General 02/23/17 12/18/19 documented as of this encounter
--- OUTSIDE RECORDS SUMMARY | 2022-05-24 18:25 | XMS_ITS | Encounter Summary ---
:1945 Author Organization [facility] Address [address] [place] [address] Care Team Providers Name Role Phone Cathy Mccoy M.D. Primary Care Provider Unavailable Reason for Visit Reason Comments Med Refill Encounter Details Date Type Department Care Team Description 05/27/2019 Refill Department of Family Medicine Cathy Mccoy Med Refill in [facility] ynes Pacheco [address] [place] [address] Social History Tobacco Use [...] or relatives? How often do you attend sabianism or More than 4 times per year 06/14/2019 cheondoism services? Do you belong to any clubs or Yes 06/14/2019 organizations such as sabianism groups, unions, fraternal or athletic groups, or [...] this encounter Miscellaneous Notes Telephone Encounter - Enid Siu, MarlynPKamilaN. - 05/27/2019 10:14 AM CDT Pt needs today. Last visit 04/01/19, next appointment 06/05/19, last filled 03/27/19 documented in this encounter Plan of Treatment Not on filedocumented as of this encounter Visit Diagnoses Not on filedocumented in this encounter Care Teams Watershed Program Manager Relationship Specialty Start Date End Date Cathy Mccoy M.D. PCP - General 02/23/17 12/18/19 documented as of this encounter
--- OUTSIDE RECORDS SUMMARY | 2022-05-24 18:25 | XMS_ITS | Encounter Summary ---
:1945 Author Organization [facility] Address [address] [place] [address] Care Team Providers Name Role Phone Cathy Mccoy M.D. Primary Care Provider Unavailable Encounter Details Date Type Department Care Team Description 04/12/2019 Documentation Division of Gastroenterology Valeria Zapata, in [facility] yousuf Pacheco, Ph.D. [address] [facility] [address] [place] [address] [place], [place] [phone] [phone] Social History Tobacco Use Types Packs/Day [...] or relatives? How often do you attend pentecostalism or More than 4 times per year 06/14/2019 voodoo services? Do you belong to any clubs or Yes 06/14/2019 organizations such as pentecostalism groups, unions, fraternal or athletic groups, or [...] documented as of this encounter Progress Notes Evan Zapata M.D., Ph.D. - 04/12/2019 4:58 PM CDT Reviewed chart; PLAN: - for macrocytosis, MCV 107; check folate and TSH; although pt had alcohol history in past but not currently; ordered lab; - peripheral blood smear review - if unclear, may need Shaka consult to r/o other myelodysplastic disease - scheduled GI return 06/2019; - 03/28/2019 Hb 14.1, MCV 105.7, PLT 172; WBC 6.3; cmp ok but K 6.0 (pt went to ED for care of hyperkalemia); cre 1.48 BUN 34; LFT wnl; B12 390; - 04/01/2019 Hb 13.3, MCV 107.1; - 03/2019 CEA 4.3 wnl; CA 19-9 10 wnl; MEDs: creon (2 pills TID), vit E, NITRO, iNSULIN, ALLOPURINOL, LOPID, METFORMIN, LISINOPRIL, Metoprolol, albuterol, Ibuprofen, Bismuth - 04/03/2019 MR ABDOMEN MRCP WITHOUT AND WITH IV CONTRAST ??COMPARISON: CT 01/29/2016, previous MRI 08/20/2015. ??IMPRESSION: ??1. Persistent diffuse pancreatic ductal dilatation with distal filling defect which may represent obstructing calcified stone given numerous pancreatic calcifications on prior CT. 2. No discrete mass within atrophied pancreatic parenchyma. 3. No biliary ductal dilatation. FINDINGS: Liver normal size and contour. No [...] ascites. ??Degenerative findings of the spine. ?? - 03/28/2019 1. Chronic (atrophic) pancreatitis (remote alcoholics hx) with calcified and P duct stone 8 mm in last MRCP 2014; clinically, stable, no abdominal pain; on Creon (2 pills with meals three times a day) with well control, except sometimes loose stool and bloating 2. DM, CKD cre 1.48; Today lab 03/28/2019 showed K 6.0 high and sugar 331; LFT wnl; 3. Hx of H pylori gastritis s/p abx in 2012; hx of colonic diverticulosis; documented in this encounter Plan of Treatment Not on filedocumented as of this encounter Results Folate (04/18/2019 9:02 AM CDT) athologist Signature Folate, S >20.0 >=4.0 mcg/L 04/18/2019 6:46 PM CDT Comment: Biotin has been identified by the murphy whitney as a potential interfering substance. ??Higher concentr ations of biotin may be found in multivitamins, hair/nail supple ments, and workout supplements. ??If the result does not ma tch clinical observations, repeat testing after patient refrains fr om the use of supplements for at least 12 hours. Specimen Anatomical Collection Method Collection Time Receive d Time (Source) Location / / Volume Laterality Blood (Blood, 04/18/2019 9:02 AM 04/18/20 19 2:12 Venous) CDT PM CDT Evan Zapata M.D., Ph.D. LAB BLOOD ADD-ON Performing Organization Address City/State/ZIP Code Phon e Number [address] [address] LAB S-TSH (Thyroid-Stimulating Hormone - Sensitive) (04/18/2019 9:02 AM CDT) P athologist Signature TSH, Sensitive 3.7 0.3 - 4.2 04/18/2019 mIU/L 9:59 AM CDT Comment: Biotin has been identified by the murphy whitney as a potential interfering substance. ??Higher concentr ations of biotin may be found in multivitamins, hair/nail supple ments, and workout supplements. ??If the result does not ma tch clinical observations, repeat testing after patient refrains fr om the use of supplements for at least 12 hours. Specimen Anatomical Collection Method Collection Time Receive d Time (Source) Location / / Volume Laterality Blood (Blood, 04/18/2019 9:02 AM 04/18/20 19 9:21 Venous) CDT AM CDT Evan Zapata M.D., Ph.D. LAB BLOOD ADD-ON Performing Organization Address City/State/[facility] Code Phon e Number [facility]- [address] [place] [phone] [facility] documented in this encounter Visit Diagnoses Diagnosis Macrocytosis - Primary documented in this encounter Care Teams Consulting Technical Director Relationship Specialty Start Date End Date Cathy Mccoy M.D. PCP - General 02/23/17 12/18/19 documented as of this encounter
--- OUTSIDE RECORDS SUMMARY | 2022-05-24 18:25 | XMS_ITS | Encounter Summary ---
:1945 Author Organization [facility] Address [address] [place] [address] Care Team Providers Name Role Phone Cathy Mccoy M.D. Primary Care Provider Unavailable Encounter Details Date Type Department Care Team Description 05/09/2019 Nurse Triage Department of Lisa Watts, Medicine in [address] [place] [address] [place] [address] Social History Tobacco Use Types Packs/Day Years [...] on filedocumented in this encounter Care Teams Gymnastic Coach Relationship Specialty Start Date End Date Cathy Mccoy M.D. PCP - General 02/23/17 12/18/19 documented as of this encounter
--- OUTSIDE RECORDS SUMMARY | 2022-05-24 18:25 | XMS_ITS | Encounter Summary ---
:1945 Author Organization [facility] Address [address] [place] [address] Care Team Providers Name Role Phone Cathy Mccoy M.D. Primary Care Provider Unavailable Encounter Details Date Type Department Care Team Description 04/02/2019 Clinical Communication Department of Diana Radford, Gastroenterology in [address] [phone] Social History Tobacco Use Types Packs/Day Years [...] More than 4 times per year 06/14/2019 episcopalian services? Do you belong to any clubs [...] Telephone Encounter - Diana Radford R.N. - 04/02/2019 3:20 PM CDT Pharmacy calling requesting Rx for Ativan sent last week. Upon chart review it was noted that the Rxwas ordered clinic administer. Verbal order for Ativan given to pharmacy per Dr. Zapata's visit note. documented in this encounter Plan of Treatment Not on filedocumented as of this encounter Visit Diagnoses Not on filedocumented in this encounter Care Teams Labor Arbitrator Relationship Specialty Start Date End Date Cathy Mccoy M.D. PCP - General 02/23/17 12/18/19 documented as of this encounter
--- OUTSIDE RECORDS SUMMARY | 2022-05-24 18:25 | XMS_ITS | Encounter Summary ---
:1945 Author Organization [facility] Address [address] [place] [address] Care Team Providers Name Role Phone Cathy Mccoy M.D. Primary Care Provider Unavailable Encounter Details Date Type Department Care Team Description 04/18/2019 Orders Only Department of Evan Zapata, Chronic Kid megan Disease Stage 2 Glomerular Filtration Rate 60 To 89 (Primary Dx); Gastroenterology in M.D., Ph.D. Hyperkalemia; [place], [place] [address] [facility] Macrocytosis [address] [place] [phone] Social History Tobacco Use Types Packs/Day Years [...] or relatives? How often do you attend sabianist or More than 4 times per year 06/14/2019 temple services? Do you belong to any clubs or Yes 06/14/2019 organizations such as sabianist groups, unions, fraternal or athletic groups, or [...] on filedocumented as of this encounter Results Peripheral Morphology (04/18/2019 9:19 AM CDT) Component Value Ref Test Analysis Performed Pathologis t Range Method Time At Signature Report Jenny P. 04/19/2019 electronically MD Jean-Paul 1:13 PM signed by CDT 04/19/2019 1:13 PM CDT Specimen Received A. Peripheral 04/19/2019 blood smear, 1:13 PM CDT Gross Description Received is a peripheral blood smear and accompan inna 04/19/2019 hemogram results. 1:13 PM CDT Microscopic Red blood cells: The red cells appear normochromic. 04/19/2019 Description Poikilocytosis is minimal. Polychromasia is not increa sed. 1:13 PM Rouleaux formation is not increased. CDT White blood cells: Lymphocytes appear polymorphous and neutrophils display normal cytoplasmic granularity and unremarkable nuclear morphology. Platelets: The morphology of the platelets is normal. Interpretation FINAL DIAGNOSIS 04/19/2019 Peripheral blood smear: Mild macrocytosis with otherwise 1:13 PM unremarkable red cells, white cells and platelets. See CDT comment. COMMENT : The differential diagnosis for macrocytosis includes, but is not limited to, nutritional deficiencies, reticulocytosis, toxin/medication effect, alcohol abuse, hypothyroidism, liver disease, as well as a myeloid disorder. Correlation with clinical findings and additional laboratory studies is recommended. Specimen Anatomical Collection Method Collection Time Receive d Time (Source) Location / / Volume Laterality Blood (Blood, 04/18/2019 9:19 AM 04/18/20 19 3:56 Venous) CDT PM CDT Narrative This result has an attachment that is no t available. Evan Zapata M.D., Ph.D. LAB BLOOD ADD-ON Performing Organization Address City/State/ZIP Code Phon e Number [address] [phone] LAB Potassium (04/18/2019 9:19 AM CDT) P athologist Signature Potassium, S 4.9 3.6 - 5.2 04/18/2019 mmol/L 10:37 AM CDT Specimen Anatomical Collection Method Collection Time Receive d Time (Source) Location / / Volume Laterality Blood (Blood, 04/18/2019 9:19 AM 04/18/20 19 9:19 Venous) CDT AM CDT Evan Zapata M.D., Ph.D. LAB BLOOD ADD-ON Performing Organization Address City/State/[facility] Code Phon e Number [facility]- [address] [place] [address], [place] [phone] [facility] documented in this encounter Visit Diagnoses Diagnosis Chronic Kidney Disease Stage 2 Glomerula r Filtration Rate 60 To 89 - Primary Hyperkalemia Macrocytosis documented in this encounter Care Teams Launch Manager Relationship Specialty Start Date End Date Cathy Mccoy M.D. PCP - General 02/23/17 12/18/19 documented as of this encounter
--- OUTSIDE RECORDS SUMMARY | 2022-05-24 18:25 | XMS_ITS | Encounter Summary ---
:1945 Author Organization [facility] Address [address] [place] [address] Care Team Providers Name Role Phone Cathy Mccoy M.D. Primary Care Provider Unavailable Reason for Referral Outpatient (Routine) - Closed Specialty Diagnoses / Procedures Referred By Contact Refer red To Contact Emergency Medicine Diagnoses Pain Leg Left Mike Holbrook M.D. [address] [address] Referral ID Status Reason Start Date Expiration Date Visits Requ ested Visits Authorized [id number] Closed 05/09/2019 05/08/2020 1 1 Reason for Visit Reason Comments Leg Injury pt lifting hitch last night, felt pop in back of upper leg and has had pain since. advil last night for pain. Encounter Details Date Type Department Care Team Description 05/09/2019 Emergency [facility] Mike Holbrook Pain Leg Left (Primary System Henna Pacheco Dx) Emergency Department [address] [place] [phone] Social History Tobacco Use Types Packs/Day Years [...] More than 4 times per year 06/14/2019 druze services? Do you belong to any clubs [...] Sign Reading Time Taken Comments Blood Pressure 134/81 05/09/2019 12:30 PM CDT Pulse 64 05/09/2019 12:30 PM CDT Temperature 36.4 ??C (97.5 ??F) 05/09/2019 11:39 AM CDT Respiratory Rate 16 05/09/2019 11:39 AM CDT Oxygen Saturation 97% 05/09/2019 12:30 PM CDT Inhaled Oxygen Concentration - - Weight 111 kg (245 lb 9.5 oz) 05/09/2019 11:40 AM CDT Height 193 cm (6' 4) 05/09/2019 11:40 AM CDT Body Mass Index 29.89 05/09/2019 11:40 AM CDT documented in this encounter Discharge Instructions Discharge InstructionsAida Solomon, P.A.-Lacy. - 05/09/2019 1:18 PM CDT You evaluated in the emergency department for left leg pain. Your x-rays were reassuring. If you have any new or worsening symptoms of pain, difficulty walk or weakness you may follow-up in the emergency department for re-evaluation. You should follow-up with primary care provider in 5-7 days for re-evaluation of symptoms. documented in this encounter Medications at Time [...] gauge x TWICE DAILY E11.9 01/24 syringe [id number] Take 2 capsules by 180 capsule 11 [...] documented as of this encounter ED Notes Mike Holbrook M.D. - 05/09/2019 1:24 PM CDT I have personally seen and examined this patient. I have fully participated in the care of this patient. I have reviewed all clinical information including history, physical exam, orders, and plan. I agree with the note of the DIRECTOR AIRPORT OPERATIONS/PA. Clinically patient has strain versus partial tear of his left hamstring. X-ray with no avulsion injury. Is stable for discharge, advised injury, advised gentle stretching, no extensive exercise or heavy lifting, follow-up with physical therapy and primary care On last evaluation, patient stable for discharge. ED return precautions given, both specific for condition and if they feel any concern for a change or worsening of their condition. Advised to follow up with primary care physician. Final Diagnoses: as of May 10 1139 Pain Leg Left Mike Holbrook M.D. 05/10/19 113 Aida Solomon P.A.-C. - 05/09/2019 12:36 PM CDT SUBJECTIVE CHIEF COMPLAINT/REASON FOR VISIT Leg Injury (pt lifting hitch last night, felt pop in back of upper leg and has had pain since. advillast night for pain. ) HISTORY OF PRESENT ILLNESS Jorge Chance is a 74 y.o. male presenting to the emergency department with a chief complaint of leg injury. Patient reports that yesterday he was lifting a ball hitch from the boat when he experienced a popping sensation in the left posterior thigh near the hip area. He reports that the painwas significant initially any head immediately stop what he was doing and stand without moving untilthe pain improved. Patient reports that he then hobbled around on the leg and felt like ???somethingwas moving in the back of his leg that was not supposed to be ???. Patient reports that he has had moderate pain since the injury but has not noticed any swelling. He notes difficulty with ambulation secondary to pain. REVIEW OF SYSTEMS Constitutional: Negative for chills, diaphoresis, fatigue and fever. Eyes: Negative for photophobia and visual disturbance. Respiratory: Negative for cough, chest tightness and shortness of breath. Cardiovascular: Negative for chest pain, palpitations and leg swelling. Gastrointestinal: Negative for abdominal pain, diarrhea, nausea and vomiting. Musculoskeletal: Positive for extremity pain. Negative for back pain and neck pain. Skin: Negative for pallor, rash and wound. Neurological: Negative for weakness, numbness and headaches. OBJECTIVE Initial Vitals Temperature Pulse Rate Heart Rate Resp Rate Blood Pressure SpO2 05/09/19 1139 05/09/19 1139 -- 05/09/19 1139 05/09/19 1139 05/09/19 1139 36.4 ??C 72 16 135/73 98 % Pain Score 05/09/19 1140 8 PHYSICAL EXAMINATION Constitutional: He appears not lethargic. No distress. HENT: Head: Normocephalic and atraumatic. No signs of injury. Right Ear: Tympanic membrane normal. Left Ear: Tympanic membrane normal. Mouth/Throat: Oropharynx is clear and moist. Mucous membranes are moist. Eyes: Conjunctivae and EOM are normal. Pupils are equal, round, and reactive to light. Right eye exhibits no discharge. Left eye exhibits no discharge. Neck: Normal range of motion. No JVD present. No tracheal deviation present. Cardiovascular: Normal rate, regular rhythm and normal heart sounds. Exam reveals no gallop and no friction rub. Pulses are strong and palpable. No murmur heard.Capillary refill: takes less than 3 seconds, Pulmonary/Chest: Effort normal and breath sounds normal. No tachypnea. No respiratory distress. He has no wheezes. He has no rhonchi. He has no rales. Abdominal: Soft. He exhibits no distension. There is no tenderness. There is no rebound and no guarding. Musculoskeletal: There is no pain with palpation of the pelvis, left femur, left knee, left tibia or fibula. The patient is able to fully flex, extend, abduct and adduct his left hip. Strength of his hip is intact withresistance. The patient is able to fully flex and extend left his knee. Strength of his knee is intact with resistance. There is no evidence of bruising, swelling or deformity of the left hip or thigh. Sensation of the left thigh is intact. The left lower extremity is warm and well perfused with intact dorsalis pedis and posterior tibial pulses. Neurological: He is alert and oriented to person, place, and time. Skin: Skin is warm and dry. He is not diaphoretic. No cyanosis. No pallor. Psychiatric: He has a normal mood and affect. His behavior is normal. Nursing note and vitals reviewed. ASSESSMENT/PLAN Impression and Plan 74-year-old male presenting emergency department with left posterior hip/buttock discomfort. Hemodynamics are reassuring. Patient has adequate range of motion of the left lower extremity in strength is intact. Neurovascular intact. Plain film imaging of the left hip and pelvis to rule out avulsion fracture which is reassuring. At this point in time, the patient most likely has a strain of the left hamstring versus partial tear. Navneet not suspect a full tear given his musculoskeletal exam. Physical therapy referral placed if the patient continues to have discomfort or pain. I did discuss return precautions with the patient and his and they verbalized understanding. Follow-up recommendations discussed. I personally reviewed the radiology image(s) and reviewed the radiology report(s). The Radiology exam interpretation(s) is/are normal. ED Course as of May 09 1504 Kiki May 09, 2019 1325 X-ray hip and pelvis left:FINDINGS: There is no identified fracture or acute abnormality of thepelvis. Hip joint spaces are maintained. There is no fracture/dislocation or acute abnormality of the left hip. Regional soft tissues have a normal appearance. There is atherosclerotic vascular calcification. The visualized lower lumbar spine instrument endplate degenerative changes and facet arthropathy. Symmetric appearance of the sacroiliac joints. No widening of the pubic symphysis. Final Diagnoses: as of May 09 1504 Pain Leg Left Aida Solomon P.A.-C. 05/09/19 1708 documented in this encounter Plan of Treatment Scheduled Referrals Name Type Priority Associated Diagnoses Order S chedule POST ED VISIT Outpatient Referral Routine Pain Leg Left Expect ed: Physical Therapy 05/09/2019 (Approximate), Expires: 05/09/2022 documented as of this encounter Procedures Procedure Name Priority Date/Time Associated Comments Diagnosis DX HIP AND PELVIS RAD - Semiurgent 05/09/2019 12:14 Re sults for this LEFT 2-3 VIEWS (Fast; most ED PM CDT procedure a re in patients; some the results inpatients) section. documented in this encounter Results DX Hip And Pelvis Left 2-3 Views (05/09/2019 12:14 PM CDT) Anatomical Region Laterality Modality Lower Extremity, Pelvis, Hip, Musculoskeletal RST LOS, Left Digital Radiography Musculoskeletal ARZ LOS, Muskuloskeletal FLA LOS Specimen (Source) Anatomical Collection Method Collection Time Re ceived Time Location / / Volume Laterality 05/09/2019 12:36 PM CDT Impressions 05/09/2019 12:37 PM CDT No acute abnormality of the pelvis or le ft hip. Narrative 05/09/2019 12:37 PM CDT EXAM: DX HIP AND PELVIS LEFT 2-3 VIEWS COMPARISON: None FINDINGS: There is no identified fractur e or acute abnormality of the pelvis. Hip joint spaces are maintained. There i s no fracture/dislocation or acute abnormality of the left hip. Regional so ft tissues have a normal appearance. There is atherosclerotic vascular calcif ication. The visualized lower lumbar spine instru ment endplate degenerative changes and facet arthropathy. Symmetric appearance of the sacroiliac joints. No widening of the pubic symphysis. Procedure Note Francis Luevano M.D. - 05/09/2019Forma tting of this note might be different from the original. EXAM: DX HIP AND PELVIS LEFT 2-3 VIEWS COMPARISON: None FINDINGS: There is no identified fractur e or acute abnormality of the pelvis. Hip joint spaces are maintained. There i s no fracture/dislocation or acute abnormality of the left hip. Regional so ft tissues have a normal appearance. There is atherosclerotic vascular calcif ication. The visualized lower lumbar spine instru ment endplate degenerative changes and facet arthropathy. Symmetric appearance of the sacroiliac joints. No widening of the pubic symphysis. IMPRESSION: No acute abnormality of the pelvis or le ft hip. Aida Solomon P.A.-C. [facility] DIAGNOSTIC IMAGING PROC EDURES documented in this encounter Visit Diagnoses Diagnosis Pain Leg Left - Primary documented in this encounter Care Teams Systems Mgr Relationship Specialty Start Date End Date Cathy Mccoy M.D. PCP - General 02/23/17 12/18/19 documented as of this encounter
--- OUTSIDE RECORDS SUMMARY | 2022-05-24 18:25 | XMS_ITS | Encounter Summary ---
:1945 Author Organization [facility] Address [address] [place] [address] Care Team Providers Name Role Phone Cathy Mccoy M.D. Primary Care Provider Unavailable Encounter Details Date Type Department Care Team Description 04/18/2019 Hospital Encounter Department of Zapata, Chronic Kidney Disease Stage 2 Glomerular Filtration Rate 60 To 89; Laboratory Medicine Zaid-Jose David, Hyperkal emia; in [place], [place] Junior, Ph.D. Macrocytosis [address] [facility] [address] [place] [phone] [phone] Social History Tobacco Use Types Packs/Day Years [...] or relatives? How often do you attend mormon or More than 4 times per year 06/14/2019 restoration services? Do you belong to any clubs or Yes 06/14/2019 organizations such as mormon groups, unions, fraternal or athletic groups, or [...] gauge x TWICE DAILY E11.9 01/24 syringe [id number] Take 2 capsules by 180 capsule 11 [...] Name Priority Date/Time Associated Diagnosis Comme nts PERIPHERAL Routine 04/18/2019 9:19 AM Macrocytosis Results f or this MORPHOLOGY CDT procedure are i n the results section. POTASSIUM, S/P Routine 04/18/2019 9:19 AM Chronic Kidney Resul ts for this CDT Disease Stage 2 procedure ar e in Glomerular Filtration the re sults Rate 60 To 89 section. Hyperkalemia CBC WITH Routine 04/18/2019 9:18 AM Results f or this DIFFERENTIAL, B CDT procedure ar e in the results section. documented in this encounter Results Peripheral Morphology (04/18/2019 9:19 AM CDT) Component Value Ref Test Analysis Performed Pathologis t Range Method Time At Signature Report Jenny Boo 04/19/2019 electronically MD Jean-Paul 1:13 PM signed [...] Laterality Blood (Blood, 04/18/2019 9:19 AM 04/18/20 3:56 Venous) CDT PM CDT Narrative This result has an attachment that is no t available. Evan Zapata M.D., Ph.D. LAB BLOOD ADD-ON Performing Organization Address City/[facility]/ZIP Code Phon e Number [facility] [address] [place] [address] LAB Potassium (04/18/2019 9:19 AM CDT) P athologist Signature Potassium, S 4.9 3.6 - 5.2 04/18/2019 mmol/L 10:37 AM CDT Specimen Anatomical Collection Method Collection Time Receive d Time (Source) Location / / Volume Laterality Blood (Blood, 04/18/2019 9:19 AM 04/18/20 19 9:19 Venous) CDT AM CDT Evan Zapata M.D., Ph.D. LAB BLOOD ADD-ON Performing Organization Address City/[facility]/ZIP [facility] Phon e Number [facility]- [address] [place] [phone] [facility] (ABNORMAL) CBC with Differential, Blood (04/18/2019 9:18 AM CDT) [facility] Method Time Signature Hemoglobin 15.3 13.2 - 04/18/2019 16.6 g/dL 5:17 PM CDT Hematocrit 46.3 38.3 - 04/18/2019 48.6 % 5:17 PM CDT Erythrocytes 4.42 4.35 - 04/18/2019 5.65 5:17 PM CDT x10(12)/L MCV 104.8 (H) 78.2 - 04/18/2019 97.9 fL 5:17 PM CDT RBC Distrib Width 12.9 11.8 - 04/18/2019 14.5 % 5:17 PM CDT Platelet Count 181 135 - 317 04/18/2019 x10(9)/L 5:17 PM CDT Leukocytes 5.3 3.4 - 9.6 04/18/2019 x10(9)/L 5:17 PM CDT Neutrophils 2.80 1.56 - 04/18/2019 6.45 5:17 PM CDT x10(9)/L Lymphocytes 1.77 0.95 - 04/18/2019 3.07 5:17 PM CDT x10(9)/L Monocytes 0.57 0.26 - 04/18/2019 0.81 5:17 PM CDT x10(9)/L Eosinophils 0.10 0.03 - 04/18/2019 0.48 5:17 PM CDT x10(9)/L Basophils 0.01 0.01 - 04/18/2019 0.08 5:17 PM CDT x10(9)/L Specimen Anatomical Collection Method Collection Time Receive d Time (Source) Location / / Volume Laterality Blood 04/18/2019 9:18 AM 9 4:56 CDT PM CDT Evan Zapata M.D., Ph.D. LAB BLOOD ADD-ON Performing Organization Address City/State/ZIP Code Phon e Number [facility]- [address] [place] [address] Billie SAKINA [phone] [facility] documented in this encounter Visit Diagnoses Diagnosis Chronic Kidney Disease Stage 2 Glomerula r Filtration Rate 60 To 89 Hyperkalemia Macrocytosis documented in this encounter Care Teams Rubber Attacher Relationship Specialty Start Date End Date Waldschmidt, Cathy, M.D. PCP - General 02/23/17 12/18/19 documented as of this encounter
--- OUTSIDE RECORDS SUMMARY | 2022-05-24 18:25 | XMS_ITS | Encounter Summary ---
:1945 Author Organization [facility] Address [address] [place] [address] Care Team Providers Name Role Phone Cathy Mccoy M.D. Primary Care Provider Unavailable Reason for Visit Reason Comments Abnormal Potassium pt sent to ER with K+ of 6.0 . pt has hx of a little kidney trouble from time to time. Encounter Details Date Type Department Care Team Description [facility]2019 [facility] Henna Pacheco Results (Primary Dx) Emergency Department [id number] [place] [phone] Social History Tobacco Use Types Packs/Day Years [...] or relatives? How often do you attend judaism or More than 4 times per year 06/14/2019 baptism services? Do you belong to any clubs or Yes 06/14/2019 organizations such as judaism groups, unions, fraternal or athletic groups, or [...] Sign Reading Time Taken Comments Blood Pressure 134/79 03/28/2019 6:00 PM CDT Pulse 58 03/28/2019 6:00 PM CDT Temperature 36.8 ??C (98.2 ??F) 03/28/2019 4:56 PM CDT Respiratory Rate 17 03/28/2019 6:00 PM CDT Oxygen Saturation 95% 03/28/2019 6:00 PM CDT Inhaled Oxygen Concentration - - Weight 112 kg (247 lb 12.8 oz) 03/28/2019 4:59 PM CDT Height 193 cm (6' 4) 03/28/2019 4:59 PM CDT Body Mass Index 30.16 03/28/2019 4:59 PM CDT documented in this encounter Medications at Time [...] 4 (four) times a day as needed. vitamin E 400 unit Take 1 capsule (400 30 capsule 11 03/29/20 18 03/29/2019 capsuleIndications: Units total) by mouth Pancreatitis Chronic daily. (HCC) ADACEL,TDAP 0 03/29/2018 04/01/2019 ADOLESN/ADULT,,PF, vaccine albuterol Inhale 2 puffs every 4 0 04/14/2017 (for_PROVENTIL (four) hours as HFA,VENTOLIN HFA) 90 needed. mcg/actuation inhaler allopurinol (ZYLOPRIM) Take 1 tablet (100 mg 180 tablet 2 09/18/2019 100 mg tablet total) by mouth 2 (two) times a day. benzocaine 10 % liquid Apply 1 application 0 04/201608/15/2019 topically 4 (four) times a day. BISMUTH SUBSALICYLATE Take by mouth as 0 03/13/20 09 04/01/2019 ORAL needed. blood sugar diagnostic 5 test daily. Use to 400 strip 3 09/06/2019 ([employer] Europe[employer]CH ULTRA BLUE test 4-5 times a day TEST STRIP) strips E11.9 diphenhydrAMINE Take 25 mg by mouth as 0 04/14/20 17 06/09/2020 (for_BENADRYL) 25 mg needed. tablet fluocinonide Apply 1 application 20 mL 3 10/18/2017 (for_LIDEX) 0.05 % topically as needed external solution for rash (5-6 x month). FLUZONE HIGH-DOSE INJECT 0.5ML ANNUALLY 0 017 04/01/2019 2017-18, PF, vaccine FLUZONE HIGH-DOSE INJECT 0.5ML ANNUALLY 0 018 04/01/2019 2018-19, PF, vaccine gemfibrozil (LOPID) Take 1 tablet (600 mg [...] gauge x TWICE DAILY E11.9 01/24 syringe xhsluq-mzahzpur-oajtzf Take 2 capsules by 180 capsule 11 03/1104/08/2019 e (CREON) mouth 3 (three) times 24,000-76,000-120,000 a day. Unit per capsuleIndications: Pancreatitis Chronic (HCC) lisinopril TAKE 1 TABLET (5 MG 90 tablet 3 09/03/201804/01 (PRINIVIL,ZESTRIL) 5 TOTAL) BY MOUTH DAILY. mg tablet metFORMIN XR Take 1 tablet (500 mg [...] encounter ED Notes Mike Holbrook M.D. - 03/28/2019 5:13 PM CDT I, Price Vergara, am scribing for and in the presence of, Mike Holbrook MD. SUBJECTIVE: CHIEF COMPLAINT/REASON FOR VISIT: Abnormal Potassium (pt sent to ER with K+ of 6.0. pt has hx of a little kidney trouble from time totime.) HISTORY OF PRESENT ILLNESS: 74 YO male arrives from clinic w/ noted hyperkalemia w/ routine lab draw earlier today. He denies any CP, SOB, abdominal pain or other sxs, is currently on lisinopril and denies any recent illnesses. History provided by: Patient and medical records Abnormal Lab Time since result: 3 hours Patient referred by: PCP Resulting agency: Internal Result type: chemistry Chemistry: Potassium: High (6.0) REVIEW OF SYSTEMS: Constitutional: Negative for chills and fever. HENT: Negative for congestion. Respiratory: Negative for cough and shortness of breath. Cardiovascular: Negative for chest pain. Gastrointestinal: Negative for abdominal pain, diarrhea, nausea and vomiting. Genitourinary: Negative for dysuria. Musculoskeletal: Negative for back pain. Skin: Negative [...] on phone: None Gets together: None Attends baptism service: None Active member of club or [...] Heart Rate Resp Rate Blood Pressure SpO2 03/28/19 1656 03/28/19 1656 03/28/19 1700 03/28/19 1656 03/28/19 1657 03/28/19 1656 36.8 ??C 60 61 20 128/78 96 % Pain Score 03/28/19 1802 0 - No pain PHYSICAL EXAMINATION: Constitutional: [...] Skin is warm, dry and normal color. Psychiatric: He has a normal mood and affect. His behavior is normal. Nursing note and vitals reviewed. ED COURSE: ED Course as of Mar 29 47 [facility] Mar 28, 2019 1750 Labs appear to have slight dehydration, not hyperkalemia, is stable for discharge, increased toincrease fluid intake and follow up primary care in a week Final Diagnoses: as of Mar 29 47 Abnormal Laboratory Results INTERVENTIONS: Medications - No data to display LABS: Labs Reviewed CBC WITH DIFFERENTIAL, B - Abnormal Result Value Hemoglobin 14.1 Hematocrit 42.6 Erythrocytes 4.03 (*) MCV 105.7 (*) RBC Distrib Width 12.6 Platelet Count 172 Leukocytes 6.3 Neutrophils 3.93 Lymphocytes 1.69 Monocytes 0.54 Eosinophils 0.08 Basophils 0.04 BASIC METABOLIC PANEL, S/P - Abnormal Potassium, P 5.3 (*) Sodium, P 137 Chloride, P 107 Bicarbonate, P 19 (*) Anion Gap, P 11 BUN, P 38 (*) Creatinine, P 1.42 (*) eGFR Black 55 (*) eGFR Non-Black 48 (*) Calcium, Total, P 9.1 Glucose, P 267 (*) ECG: RADIOLOGY: No orders to display ASSESSMENT AND PLAN: ED Course as of Mar 29 47 [facility] Mar 28, 2019 1750 Labs appear to have slight dehydration, not hyperkalemia, is stable for discharge, increased toincrease fluid intake and follow up primary care in a week Final Diagnoses: as of Mar 29 47 Abnormal Laboratory Results I personally performed the services described in this documentation, as scribed in my presence, and it is both accurate and complete. DIAGNOSIS: Final diagnoses: [R68.89] Abnormal Laboratory Results ED DISCHARGE MEDS: ED Prescriptions None DISPOSITION: FOLLOW UP: Mike Holbrook M.D. 03/29/1947 Mike Holbrook M.D. 03/29/1948 documented in this encounter Plan of Treatment Not on filedocumented as of this encounter Procedures Procedure Name Priority Date/Time Associated Diagnosis Comme nts CBC WITH STAT 03/28/2019 5:08 PM Results f or this DIFFERENTIAL, B CDT procedure ar e in the results section. BASIC METABOLIC STAT 03/28/2019 5:08 PM Result s for this PANEL, S/P CDT procedure are i n the results section. ECG STAT 03/28/2019 4:55 PM Results f or this CDT procedure are i n the results section. documented in this encounter Results (ABNORMAL) BMP (Basic Metabolic Panel) (03/28/2019 5:08 PM CDT) Analysis Performed At Patho logist Time Signature Potassium, P 5.3 (H) 3.6 - 5.2 03/28/2019 mmol/L 5:31 PM CDT Sodium, P 137 135 - 145 03/28/2019 mmol/L 5:31 PM CDT Chloride, P 107 98 - 107 03/28/2019 mmol/L 5:31 PM CDT Bicarbonate, P 19 (L) 22 - 29 03/28/2019 mmol/L 5:31 PM CDT Anion Gap, P 11 7 - 15 03/28/2019 5:31 PM CDT BUN (Blood Urea 38 (H) 8 - 24 03/28/2019 Nitrogen), P mg/dL 5:31 PM CDT Creatinine 1.42 (H) 0.74 - 03/28/2019 1.35 mg/dL 5:31 PM CDT eGFR-Black/Afri 55 (L) >=60 03/28/2019 can Micronesian mL/min/BSA 5:31 PM CDT Comment: ----ADDITIONAL INFORMATION---- Estimated GFR calculated using the 2009 CKD_EPI creatinine equation. eGFR Non-Black/ 48 (L) >=60 mL/min/BSA 5:31 PM CDT Comment: ----ADDITIONAL INFORMATION---- Estimated GFR calculated using the 2009 CKD_EPI creatinine equation. Calcium, Total, P 9.1 8.8 - 10.2 mg/dL 03/28/2019 5:31 PM CDT Glucose, P 267 (H) 70 - 140 mg/dL 03/28/2019 5:31 PM CDT Specimen Anatomical Collection Method Collection Time Receive d Time (Source) Location / / Volume Laterality Blood (Blood, 03/28/2019 5:08 PM 03/28/20 19 5:11 Venous) CDT PM CDT Mike Holbrook M.D. LAB BLOOD ADD-ON Performing Organization Address City/State/[facility] Code Phon e Number [address] [address] LAB (ABNORMAL) CBC with Differential (03/28/2019 5:08 PM CDT) [facility] gist Method Time Signature Hemoglobin 14.1 13.2 - 03/28/2019 16.6 g/dL 5:15 PM CDT Hematocrit 42.6 38.3 - 03/28/2019 48.6 % 5:15 PM CDT Erythrocytes 4.03 (L) 4.35 - 03/28/2019 5.65 5:15 PM CDT x10(12)/L MCV 105.7 (H) 78.2 - 03/28/2019 97.9 fL 5:15 PM CDT RBC Distrib Width 12.6 11.8 - 03/28/2019 14.5 % 5:15 PM CDT Platelet Count 172 135 - 317 03/28/2019 x10(9)/L 5:15 PM CDT Leukocytes 6.3 3.4 - 9.6 03/28/2019 x10(9)/L 5:15 PM CDT Neutrophils 3.93 1.56 - 03/28/2019 6.45 5:15 PM CDT x10(9)/L Lymphocytes 1.69 0.95 - 03/28/2019 3.07 5:15 PM CDT x10(9)/L Monocytes 0.54 0.26 - 03/28/2019 0.81 5:15 PM CDT x10(9)/L Eosinophils 0.08 0.03 - 03/28/2019 0.48 5:15 PM CDT x10(9)/L Basophils 0.04 0.01 - 03/28/2019 0.08 5:15 PM CDT x10(9)/L Specimen Anatomical Collection Method Collection Time Receive d Time (Source) Location / / Volume Laterality Blood (Blood, 03/28/2019 5:08 PM 03/28/20 19 5:11 Venous) CDT PM CDT Mike Holbrook M.D. LAB BLOOD ADD-ON Performing Organization Address City/State/[facility] [place] [address] LAB ECG 12 Lead (03/28/2019 4:55 PM CDT) P athologist Signature Ventricular Rate 60 BPM MUSE ECG/Min MD Interval 198 ms MUSE QRSD Interval 88 ms MUSE QT Interval 382 ms MUSE QTC Interval 382 ms MUSE P [place] -8 degrees MUSE R [place] -37 degrees MUSE T Wave [place] -5 degrees MUSE Specimen Anatomical Collection Method Collection Time Receive d Time (Source) Location / / Volume Laterality 03/28/2019 4:55 PM 9 CDT 10:51 AM CDT Impressions MUSE - 03/29/2019 10:51 AM CDT Normal sinus rhythm Low voltage QRS Low anterolateral forces Cannot rule out Inferior infarct When compared with ECG of 10-APR-2015 10 :45, Possible V2-V3 interchange Minimal criteria for Inferior infarct ar e now present Reviewed by MILAGROS Wilburn Narrative This result has an attachment that is no t available. Procedure Note Karissa Sam M.D., Ph.D. - 03/29/2019Fo rmatting of this note might be different from the original. IMPRESSION: Normal sinus rhythm Low voltage QRS Low anterolateral forces Cannot rule out Inferior infarct When compared with ECG of 10-APR-2015 10 :45, Possible V2-V3 interchange Minimal criteria for Inferior infarct ar e now present Reviewed by MILAGROS Wilburn Mike Holbrook M.D. ECG ORDERABLES Performing Organization Address City/State/ZIP Code Phon e Number MUSE MUSE NA documented in this encounter Visit Diagnoses Diagnosis Abnormal Laboratory Results - Primary documented in this encounter Care Teams Kick Press Operator Relationship Specialty Start Date End Date Cathy Mccoy M.D. PCP - General 02/23/17 12/18/19 documented as of this encounter
--- OUTSIDE RECORDS SUMMARY | 2022-05-24 18:25 | XMS_ITS | Encounter Summary ---
:1945 Author Organization [facility] Address [address] [place] [address] Care Team Providers Name Role Phone Cathy Mccoy M.D. Primary Care Provider Unavailable Reason for Visit Outpatient (Routine) - Closed Specialty Diagnoses / Procedures Referred By Contact Refer red To Contact Emergency Medicine Diagnoses Pain Leg Left Mike Holbrook M.D. [facility] [address] [place] [phone] Referral ID Status Reason Start Date Expiration Date Visits Requ ested Visits Authorized [id number] Closed 05/09/2019 05/08/2020 1 1 Encounter Details Date Type Department Care Team Description 05/23/2019 Clinical Support Department of Physical Mike Holbrook M.D. [address] [place] [phone] Pain Leg Left Medicine and Benja Brown, P.TKamila [address] [place] [phone] Rehabilitation in [address] [phone] Social History Tobacco Use Types Packs/Day Years [...] or relatives? How often do you attend jain or More than 4 times per year 06/14/2019 sikhism services? Do you belong to any clubs or Yes 06/14/2019 organizations such as jain groups, unions, fraternal or athletic groups, or [...] PM CDT documented as of this encounter Consult Notes Benja Brown P.T. - 05/23/2019 10:00 AM CDT Consults Physical Therapy Outpatient Evaluation/Treatment By co-signing this note, the provider certifies the therapy being provided to this patient is reasonable and necessary for the diagnosis or treatment of this patient. SUBJECTIVE Patient's Name: Jorge Chance Referring Provider: Mike Holbrook M.D. Visit Diagnosis: 1. Pain Leg Left Reason for Referral: Left hamstring strain Onset Date: 05/09/19 Payor: [facility] / Plan: [id number] HMO / Product Type: HMO / [employer] Visit Count: 1 PERTINENT MEDICAL / SURGICAL HISTORY: Patient Active Problem List Diagnosis ??? Family [...] History Of Falling ??? Pain Leg Left Past Surgical History: Procedure Laterality Date ??? MOUTH SURGERY ??? OSTECTOMY OF CALCANEUS FOR SPUR N/A 02/23/2007 Excision of calcaneal spur ??? PLACEMENT OF STENT IN CARDIAC CONDUIT 2005 Diagnostic Tests: Negative x-ray for avulsion injury or fracture Jorge Chance is a 74 y.o. male who presents to outpatient physical therapy for evaluation. His symptoms consist of: 1. Left hip pain Overall he reports his status is improving . History of Present Illness: patient is a 74-year-old male referred to physical therapy for evaluation treatment of left hip pain. Patient was lifting a trailer hitch in felt a pop in the left buttock. He localizes the pain to the and insertion of the proximal hamstring and the midportion of the hamstring muscle. It is worse with resisted hamstring contractions and better with rest. Unfortunately alsofell recently a injury to his right shoulder. He would also like me to look at that today. Aggravating Factors: Patient has pain with walking and standing and lifting objects from the floor Relieving Factors: Rest Previous Treatments: Heat/Cold modalities Prior Level of Function: Patient was quite active for his age and was not limited with standing activities Patient goals:Patient like to walk without pain OBJECTIVE REVIEW OF SYSTEMS Negative PHYSICAL EXAM Pain: Pain Assessment Pain Assessment: 0-10 Numeric Pain Intensity Scale Pain Score: 5 - Moderate pain Pain Location: Buttocks Pain Orientation: Left Observation/Inspection: Patient is a well-appearing 74-year-old no acute distress Posture: Normal Ambulation/Balance: mildly antalgic secondary to left hip pain Palpation: Tender palpation at the proximal insertion of the lateral hamstring, also tender along the midportion of hamstring muscle belly. Range of Motion: hip and knee are within normal limits. Right shoulder as a painful arc from 80-120 however he has full AROM in all planes. Strength: 5/5 throughout lower extremities except for left hamstring which is 4/5 and painful. 5/5 throughout upper extremities except for right external rotation 4/5 and painful. Neuro Screen/Motor Control: Intact to light touch, denies numbness or tingling throughout the upper and lower extremities. Reflexes are absent at the patella and Achilles bilaterally, 1+ at the brachioradialis, triceps and biceps bilaterally Joint Mobility: Hip and knee normal, shoulder normal Special Tests: Negative FADIR and GARRET, negative straight leg raise, pain with stretch of the hamstring and active contraction of the hamstring. Positive Yancey Larry, positive empty can for pain, negative external rotation lag sign, and negative speed's. LEFS 60 Ortho Exam TREATMENT Treatment today consisted of: Therapeutic Exercise: patient was placed on the NuStep for 10 min of warmup and AROM. Patient continued with hip abduction bilaterally, hamstring resisted curls 2 plates times 20. Patient was instructed in Thera-Band resisted shoulder extension, internal rotation and external rotation times 25. Patient was instructed in Thera-Band resisted hamstring curls, hamstring stretches, bridging times 25. Home Exercise Program/Education: Patient was provided written, graphic, and verbal instructions for the exercises to ensure understanding. Assessment Clinical Impression: Mr. Chance presents to physical therapy with signs and symptoms consistent with grade 2 hamstringstrain, rotator cuff contusion. Impairments: Pain in the hip, pain in the shoulder unable to walk without pain Functional Deficits: lifting objects overhead, walking Rehab Potential: Mr. Chance has Excellent potential to achieve established physical therapy goalswithin the time frame outlined below, provided he actively participates in his physical therapy treatment plan and home program. Comorbidities: See past medical history above Personal Factors: None Clinical Presentation: Stable Examination elements: 1-2 Clinical Decision Making: Low: no complicating factors, 1-2 eval elements, stable clinical presentation Functional Goals and Timeframes: PT Goal #1: Patient will be independent in home program in 2 weeks PT Goal #2: Patient will report 25% improvement with all standing functional tasks in 2 weeks PT Goal #3: Patient reports 50% improvement with all standing functional activities in 6 weeks PT Goal #4: Patient will score 70 or more on the LEFS in 8 weeks Plan Mr. Chance was educated regarding evaluative findings, diagnosis, prognosis, potential risks and benefits of rehabilitation interventions. A collaborative effort was used to establish goals and planof care. He was informed of his right to make decisions regarding his care, including refusal of examination or treatment or selection of services from another provider if desired. The treatment plan may be progressed or modified based upon his response to treatment. Treatment Plan: Start of Plan of Care: 05/23/2019 Number of Visits: 8 visits PT Duration: 6 weeks PT Frequency: 1-2x/week Treatment interventions may include: Therapeutic exercise Plan for next session: Patient will continue with current plan of care and return for advancement ofhome program as tolerated and deemed appropriate by therapist. Time Spent with Patient PT Evaluation (min): 20 min Therapeutic Exercise (min): 20 min Time Calculation Total Timed Units (min): 20 min Total Treatment Time (min): 40 min Functional G-code Worksheet Benja Brown P.T. Department of Physical Medicine and Rehabilitation in [address] [phone] Dept: [phone] documented in this encounter Plan of Treatment Not on filedocumented as of this encounter Visit Diagnoses Diagnosis Pain Leg Left documented in this encounter Care Teams Chip Loft Worker Relationship Specialty Start Date End Date Cathy Mccoy M.D. PCP - General 02/23/17 12/18/19 documented as of this encounter
--- OUTSIDE RECORDS SUMMARY | 2022-05-24 18:25 | XMS_ITS | Encounter Summary ---
:1945 Author Organization [facility] Address [address] [place] [address] Care Team Providers Name Role Phone Cathy Mccoy M.D. Primary Care Provider Unavailable Reason for Visit Reason Onset Date Comments Med Refill 05/27/2019 Encounter Details Date Type Department Care Team Description 05/27/2019 Clinical Communication Department of [facility] Diane patterson, Med Refill Medicine in Cathy Hood M.D. [address] [phone] Social History Tobacco Use Types [...] Miscellaneous Notes Telephone Encounter - Malka Horton 05/27/2019 9:49 AM CDT Currently pending to Dr Mccoy, awaiting approval. Telephone Encounter - Chanda Luna - 05/27/2019 9:38 AM CDT Please do not reply to sender,emails are not monitored. Thank you. If you need a prescription refill please call your pharmacy. Please allow 3 business days for processing. Expert RN: N/A (Med Refill Only) Call Center Template: ??? May we leave a message for you on this phone? yes What can I help you with today? Needing needles today- only has 4 needles. Thank you. ??? If Medication Refill: o What is the name and strength of the medication? HUMALOG and PEN NEEDLES o What do you use the medication for? o How many pills do you have left? o What pharmacy do you use (include location)? [facility] in [place] I will send this information to the appropriate staff member who will look into your concern. Is there anything else I can help you with today? Thank you for calling [facility]. documented in this encounter Plan of Treatment Not on filedocumented as of this encounter Visit Diagnoses Not on filedocumented in this encounter Care Teams Political Researcher Relationship Specialty Start Date End Date Cathy Mccoy M.D. PCP - General 02/23/17 12/18/19 documented as of this encounter
--- OUTSIDE RECORDS SUMMARY | 2022-05-24 18:25 | XMS_ITS | Encounter Summary ---
:1945 Author Organization [facility] Address [address] [place] [address] Care Team Providers Name Role Phone Cathy Mccoy M.D. Primary Care Provider Unavailable Encounter Details Date Type Department Care Team Description 06/03/2019 Hospital Encounter Department of Nadine, Diabetes Mellitus Laboratory Medicine Junior Morgan Type 2 (HCC) in [place], [place] [address] [place] [address] Social History Tobacco Use Types [...] (two) times a day. insulin lispro Inject 0.84-0.86 mL 60 mL 3 05/27/2019 0 06/05/2019 protamin-lispro (84-86 Units total) (HumaLOG Mix under the skin 2 (two) 75-25,U-100,Insuln) times a day. 100 unit/mL (75-25) injection insulin syringe-needle USE FOR INSULIN 100 each 4 05/27/20 19 12/06/2019 U-100 1 mL 31 gauge x INJECTIONS TWO TIMES A 01/24 syringe DAY [id number] Take 2 capsules by 180 capsule 11 [...] Diagnosis Comme nts ALBUMIN, RANDOM, U Routine 06/03/2019 9:02 AM Diabetes Mellitu s Results for this CDT Type 2 (HCC) procedure are i n the results section. HEMOGLOBIN A1C, B Routine 06/03/2019 8:55 AM Diabetes Mellitus Results for this CDT Type 2 (HCC) procedure are i n the results section. documented in this encounter Results (ABNORMAL) Microalbumin, Random, Urine (06/03/2019 9:02 AM CDT) Analysis Performed At Patho logist Time Signature Microalbumin 95.0 mg/L 06/03/2019 2:51 PM CDT Creatinine 120 mg/dL 06/03/2019 2:51 PM CDT Albumin/Creatinin 79 (H) <17 mg/g 06/03/2019 e Ratio 2:51 PM CDT Specimen Anatomical Collection Method Collection Time Receive d Time (Source) Location / / Volume Laterality Urine (Urine, 06/03/2019 9:02 AM 06/03/20 19 2:16 Clean Catch) CDT PM CDT Cathy Mccoy M.D. LAB URINE ORDERABLES Performing Organization Address City/[facility]/ZIP Code Phon e Number [facility] [address] [place] [address] LAB (ABNORMAL) Hemoglobin A1c (06/03/2019 8:55 AM CDT) P athologist Signature Hemoglobin A1c, 7.4 (H) 4.2 - 5.6 06/03/2019 B % 2:14 PM CDT Comment: Hemoglobin A1c values greater than or eq ual to 6.5 percent are diagnostic for diabetes mellitus. ?? Diagnosis should be confirmed by repeat testing. ??In diabet ic patients, HbA1c goals should be discussed with healthcar e provider. Specimen Anatomical Collection Method Collection Time Receive d Time (Source) Location / / Volume Laterality Blood (Blood, 06/03/2019 8:55 AM 06/03/20 19 Venous) CDT 12:57 PM CDT Cathy Mccoy M.D. LAB BLOOD ADD-ON Performing Organization Address City/State/ZIP Code Phon e Number [facility]- [address] [place] [address], [place] [phone] [facility] documented in this encounter Visit Diagnoses Diagnosis Diabetes Mellitus Type 2 (HCC) documented in this encounter Care Teams Segment Assembler Relationship Specialty Start Date End Date Cathy Mccoy M.D. PCP - General 02/23/17 12/18/19 documented as of this encounter
--- OUTSIDE RECORDS SUMMARY | 2022-05-24 18:25 | XMS_ITS | Encounter Summary ---
:1945 Author Organization [facility] Address [address] [place] [address] Care Team Providers Name Role Phone Cathy Mccoy M.D. Primary Care Provider Unavailable Encounter Details Date Type Department Care Team Description 04/04/2019 Hospital Encounter Department of Laboratory Diane patterson, Hyperkalemia Medicine in Cathy Wise M.D. [address] [address] Social History Tobacco Use Types Packs/Day Years [...] or relatives? How often do you attend congregation or More than 4 times per year 06/14/2019 voodoo services? Do you belong to any clubs or Yes 06/14/2019 organizations such as congregation groups, unions, fraternal or athletic groups, or [...] gauge x TWICE DAILY E11.9 01/24 syringe yeqqbu-yvcndklm-allvrg Take 2 capsules by 180 capsule 11 [...] Associated Diagnosis Comme nts BASIC METABOLIC Routine 04/04/2019 9:26 AM Hyperkalemia Result s for this PANEL, [...] >=60 04/04/2019 Black/ mL/min/BSA 9:52 AM CDT Mauritian Comment: ----ADDITIONAL INFORMATION---- Estimated GFR calculated using [...] City/State/ZIP Code Phon e Number [facility]- [address] [place] [address], [place] [phone] [facility] documented in this encounter Visit Diagnoses Diagnosis Hyperkalemia documented in this encounter Care Teams Lead Cook Relationship Specialty Start Date End Date Cathy Mccoy M.D. PCP - General 02/23/17 12/18/19 documented as of this encounter
--- OUTSIDE RECORDS SUMMARY | 2022-05-24 18:26 | XMS_ITS | Encounter Summary ---
:1945 Author Organization [facility] Address [address] [place] [address] Care Team Providers Name Role Phone Cathy Mccoy M.D. Primary Care Provider Unavailable Encounter Details Date Type Department Care Team Description 03/26/2019 Documentation Department of Gastroenterology Harshad Zapata, in [place], Shaka dunn M.D., Ph.D. [address] [address] [place] [address] [phone] Social History Tobacco Use Types Packs/Day [...] or relatives? How often do you attend religious or More than 4 times per year 06/14/2019 cheondoism services? Do you belong to any clubs or Yes 06/14/2019 organizations such as religious groups, unions, fraternal or athletic groups, or school groups? How often do you attend meetings of the More than 4 times pe sudarshan year 06/14/2019 clubs or organizations you belong [...] Progress Notes Evan Zapata M.D., Ph.D. 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 Hx chronic pancreatitis (burn-out total calcified); BMI: 31; (113 kgs) MEDs: creon, vit E, NITRO, iNSULIN, ALLOPURINOL, LOPID, METFORMIN, LISINOPRIL, Metoprolol, albuterol, Ibuprofen, Bismuth 03/29/2018 - CBC ok, MCV 104 HIGH - 12/2018 - bun 31, CRE 1.32; SUGAR 139; A1C 5.9 - 03/2018 LFT wnl; CA 19-9 wnl; 07/16/2013 EGD ?? PREOPERATIVE DIAGNOSIS: Chronic diarrhea and weight loss. ?? POSTOPERATIVE DIAGNOSIS: H. Pylori gastritis. 07/2013 C-scope - Colonic diverticulosis. MRI/MRCP 08/2015 IMPRESSION: 1. Unchanged 8 x 5 mm distal pancreatic duct stone within the head of the pancreas with dilated mainpancreatic duct proximal to the stone, consistent with chronic pancreatitis. This has been stable since the CT examination 06/20/2013. 2. No evidence for pancreatic mass. 3. No evidence for gallbladder or biliary pathology. 4. Other incidental nonacute findings as described above, stable 08/2014 MRCP IMPRESSION: 1. Findings compatible with sequela of chronic pancreatitis with obstructing intraductal calcification measuring 8mm. No discrete pancreatic mass identified. Progressive pancreatic atrophy favored related to chronic ductal obstruction. 2. Diffuse hepatic steatosis. - 01/2016 CT abdomen/pel IMPRESSION: 1. Normal-appearing appendix. 2. No acute intra-abdominal/pelvic pathology. 3. Other stable incidental nonacute findings as described above. FINDINGS: Lung bases: No acute airspace opacity in the bilateral bases. Coronary artery and thoracic aortic atherosclerotic changes again observed, stable. Abdomen and pelvis: Normal-appearing appendix in the right lower quadrant on image 48 through 52 ofseries 2. There is no free intraperitoneal air, free fluid, fluid collection, or abscess. Mild aortoiliac atherosclerotic changes are observed. Unchanged rounded low attenuating renal cortical structures bilaterally that are too small to characterize but statistically most likely to represent simple cysts. Pancreatic calcifications proximally and atrophy of the pancreas throughout are stable. The liver, spleen, adrenal glands, and gallbladder are unremarkable. Bones: No lytic or blastic bone lesions are identified. documented in this encounter Plan of Treatment Not on filedocumented as of this encounter Visit Diagnoses Not on filedocumented in this encounter Care Teams Earth Science Professor Relationship Specialty Start Date End Date Cathy Mccoy M.D. PCP - General 02/23/17 12/18/19 documented as of this encounter
--- OUTSIDE RECORDS SUMMARY | 2022-05-24 18:26 | XMS_ITS | Encounter Summary ---
:1945 Author Organization [facility] Address [address] [place] [address] Care Team Providers Name Role Phone Cathy Mccoy M.D. Primary Care Provider Unavailable Reason for Referral Outpatient (Routine) - Closed Specialty Diagnoses / Referred By Contact Referred To Procedures Contact Gastroenterology and Diagnoses Pancreatitis Chronic (HCC) Kedar Ellison M.D. [facility] Hepatology [address] [place] [phone] Referral ID Status Reason Start Date Expiration Date Visits Requ ested Visits Authorized [id number] Closed 03/29/2018 03/29/2019 1 1 Reason for Visit Reason Comments Pancreatitis Outpatient (Routine) - Closed Specialty Diagnoses / Procedures Referred By Contact Refer red To Contact Kedar Ellison M.D. Referral ID Status Reason Start Date Expiration Date Visits Requ ested Visits Authorized [id number] Closed 06/22/2017 12/19/2017 1 1 Encounter Details Date Type Department Care Team Description 03/29/2018 Office Visit Department of Kedar Ellison, Pancreatitis Chronic Gastroenterology in [place].D[place] (HCC) (P rimary Dx) [address] [phone] Social History Tobacco Use Types Packs/Day Years [...] or relatives? How often do you attend adventism or More than 4 times per year 06/14/2019 jewish services? Do you belong to any clubs or Yes 06/14/2019 organizations such as adventism groups, unions, fraWeft or athletic groups, or school groups? How [...] Sign Reading Time Taken Comments Blood Pressure 112/70 03/29/2018 10:29 AM CDT Pulse 60 03/29/2018 10:29 AM CDT Temperature - - Respiratory Rate 10 03/29/2018 10:29 AM CDT Oxygen Saturation - - Inhaled Oxygen Concentration - - Weight 112 kg (246 lb 11.1 oz) 03/29/2018 10:29 AM CDT Height 191 cm (6' 3.2) 03/29/2018 11:31 AM CDT Body Mass Index 30.67 03/29/2018 10:29 AM CDT documented in this encounter Progress Notes Kedar Ellison M.D. - 03/29/2018 10:15 AM CDT SUBJECTIVE Chief Complaint/Reason for Visit Chief Complaint Patient presents with ??? Pancreatitis Jorge Chance is a 73 y.o. male who presents for evaluation of the following concerns: Chronic calcific pancreatitis with exocrine and endocrine pancreatic insufficiency. History of Present Illness: Diagnosis Plan 1. Pancreatitis Chronic (HCC) vitamin E 400 unit capsule kzlmbd-mzvfrdei-kmbqnpj (CREON) 24,000-76,000-120,000 Unit per capsule Tdap: Vtsudhi-xljnvxnbja-yxgomnsht pertussis vaccine (7 years and older) CBC without Differential Hepatic Function Panel Carbohydrate Antigen 19-9 (CA 19-9) Gastroenterology office visit (clinic) 73-year-old gentleman with history of chronic calcific pancreatitis due to alcoholism in the remote past presented to GI Clinic for follow-up. Since last year patient started on vitamin E due to deficiency identified from blood test. His ability to walk and his gait have improved within 2 weeks of starting vitamin-E supplementation. Patient only complained of diarrhea approximately once every 3 weeks. His weight has been stable. He gained approximately 30 lb after pancreas enzyme supplementations was started [address] scan from 2016 showed near complete atrophy of the pancreas with diffuse calcification of the pancreas gland. Pancreatic duct was obstructed due to calcifications. Review of Systems Constitutional: Negative for fatigue, fever, loss of appetite, night sweats and weight loss of more than 10 pounds. Skin: Negative for skin rash. Eyes: Negative for visual problems. ENT: Negative for sinus congestion. Respiratory: Negative for dry cough. Cardiovascular: Negative for swelling in the legs or feet. Gastrointestinal: Negative for abdominal (belly) pain or cramping, blood in stool, constipation, diarrhea, heartburn, nausea, vomiting and difficulty swallowing. Genitourinary: Negative for difficulty urinating. Hematologic: Negative for abnormal lumps or bumps. Musculoskeletal: Negative for joint swelling. OBJECTIVE Physical Exam Constitutional: He is oriented to person, place, and time. He appears well- developed and well-nourished. HENT: Head: Normocephalic and atraumatic. Nose: Nose normal. Eyes: Conjunctivae and EOM are normal. Pupils are equal, round, and reactive to light. No scleral icterus. Neck: Normal range of motion. Neck supple. No JVD present. No tracheal deviation present. Cardiovascular: Normal rate, regular rhythm and normal heart sounds. He exhibits no edema. No murmur heard. Pulmonary/Chest: Effort normal and breath sounds normal. He has no wheezes. He has no rales. Abdominal: Soft. Bowel sounds are normal. He exhibits no distension and no mass. There is no tenderness. There is no rebound and no guarding. No hernia. Musculoskeletal: Normal range of motion. Lymphadenopathy: He has no cervical adenopathy. Neurological: He is alert and oriented to person, place, and time. Skin: Skin is warm and dry. Psychiatric: He has a normal mood and affect. His behavior is normal. ASSESSMENT / PLAN 1. Pancreatitis Chronic (HCC) Nearly complete burnt out pancreas with diffuse calcifications. - vitamin E 400 unit capsule; Take 1 capsule (400 Units total) by mouth daily. Dispense: 30 capsule;Refill: 11 - cigqam-bxqsrvdj-kopcklf (CREON) 24,000-76,000-120,000 Unit per capsule; Take 2 capsules by mouth 3(three) times a day. Dispense: 180 capsule; Refill: 11 - Tdap: Mbsivox-vgdntusnzp-fhywppqos pertussis vaccine (7 years and older) - CBC without Differential - Hepatic Function Panel - Carbohydrate Antigen 19-9 (CA 19-9) - Gastroenterology office visit (clinic); Future in 1 year. documented in this encounter Plan of Treatment Scheduled Referrals Name Type Priority Associated Order Schedule Diagnoses Gastroenterology office Outpatient Routine Pancreatitis Expe cted: visit (clinic) Referral Chronic (HCC) 03/29/2019 (Approximate), Expires: 03/29/2021 documented as of this encounter Procedures Procedure Name Priority Date/Time Associated Diagnosis Comme nts HEPATIC FUNCTION Routine 03/29/2018 11:43 Pancreatitis Chronic Results for this PANEL, S AM CDT (HCC) procedure are i n the results section. CARBOHYDRATE AG 19-9 Routine 03/29/2018 11:43 Pancreatitis Chr onic Results for this (CA 19-9), S AM CDT (HCC) procedure are i n the results section. CBC WITHOUT Routine 03/29/2018 11:43 Pancreatitis Chronic Res ults for this DIFFERENTIAL, B AM CDT (HCC) procedure ar e in the results section. documented in this encounter Results Carbohydrate Antigen 19-9 (CA 19-9) (03/29/2018 11:43 AM CDT) P athologist Signature Carbohydrate Ag 7 <35 U/mL 03/30/2018 [facility] 19-9, S 10:13 AM CDT [facility] Comment: ----ADDITIONAL INFORMATION---- The testing method is an immunoenzymatic assay manufactured by [employer] and performed on the RIISnetI 800. ? Values obtained with different assay met hods or kits may be different and cannot be used inte rchangeably. ? Test results cannot be interpreted as ab solute evidence for the presence or absence of malignant disease. Specimen Anatomical Collection Method Collection Time Receive d Time (Source) Location / / Volume Laterality Blood (Blood, 03/29/2018 11:43 03/30/2018 8:20 Venous) AM CDT AM CDT Kedar Ellison M.D. LAB BLOOD ADD-ON Performing Organization Address City/[facility] Code Phon e Number [facility] [address] [place], [place] [address] [facility] Hepatic Function Panel (03/29/2018 11:43 AM CDT) [facility] Method Time Signature Bilirubin, Total, S 0.4 <=1.2 03/29/2018 [facility] mg/dL 12:44 PM CDT [facility] Bilirubin, Direct, S 0.2 0.0 - 0.3 03/29/2018 [facility] mg/dL 12:44 PM CDT [facility] Aspartate 34 8 - 48 03/29/2018 [facility] Aminotransferase U/L 12:44 PM CDT [facility] Alanine 31 7 - 55 03/29/2018 [facility] Aminotransferase U/L 12:44 PM CDT [facility] Alkaline 91 45 - 115 03/29/2018 [facility] Phosphatase, S U/L 12:44 PM CDT [facility] Albumin, S 4.2 3.5 - 5.0 03/29/2018 [facility] g/dL 12:44 PM CDT [facility] Protein, Total, S 6.9 6.3 - 7.9 03/29/2018 [facility] g/dL 12:44 PM CDT [facility] Specimen Anatomical Collection Method Collection Time Receive d Time (Source) Location / / Volume Laterality Blood (Blood, 03/29/2018 11:43 03/29/2018 Venous) AM CDT 11:49 AM CDT Kedar Ellison M.D. LAB BLOOD ADD-ON Performing Organization Address City/State/ZIP Code Phon e Number [facility] [address] [place] [address] LAB (ABNORMAL) CBC without Differential (03/29/2018 11:43 AM CDT) [facility] Method Time Signature Hemoglobin 14.7 13.2 - 03/29/2018 [facility] 16.6 g/dL 11:54 AM T [facility] Hematocrit 45.4 38.3 - 03/29/2018 [facility] 48.6 % 11:54 AM T [facility] Erythrocytes 4.37 4.35 - 03/29/2018 [facility] 5.65 11:54 AM CDT HEALTH x10(12)/L [facility] MCV 103.9 (H) 78.2 - 03/29/2018 [facility] 97.9 fL 11:54 AM T [facility] RBC Distrib Width 13.9 11.8 - 03/29/2018 [facility] 14.5 % 11:54 AM T [facility] Platelet Count 199 135 - 317 03/29/2018 [facility] x10(9)/L 11:54 AM T [facility] Leukocytes 5.9 3.4 - 9.6 03/29/2018 [facility] x10(9)/L 11:54 AM T [facility] Specimen Anatomical Collection Method Collection Time Receive d Time (Source) Location / / Volume Laterality Blood (Blood, 03/29/2018 11:43 03/29/2018 Venous) AM CDT 11:49 AM CDT Kedar Ellison M.D. LAB BLOOD ADD-ON Performing Organization Address City/State/ZIP Code Phon e Number [facility] [address] [place] [address] LAB documented in this encounter Visit Diagnoses Diagnosis Pancreatitis Chronic (HCC) - Primary documented in this encounter Care Teams Staff Mine Warfare Officer Relationship Specialty Start Date End Date Cathy Mccoy M.D. PCP - General 02/23/17 12/18/19 documented as of this encounter
--- OUTSIDE RECORDS SUMMARY | 2022-05-24 18:26 | XMS_ITS | Encounter Summary ---
:1945 Author Organization [facility] Address [address] [place] [address] Care Team Providers Name Role Phone Cathy Mccoy M.D. Primary Care Provider Unavailable Reason for Visit Reason Comments Diabetes follow up Outpatient (Routine) - Closed Specialty Diagnoses / Procedures Referred By Contact Refer red To Contact Cathy Mccoy M.D. Referral ID Status Reason Start Date Expiration Date Visits Requ ested Visits Authorized [id number] Closed 06/22/2017 12/19/2017 1 1 Encounter Details Date Type Department Care Team Description 10/18/2017 Office Visit Department of Family Brigid Mccoy s Mellitus Type 2 (HCC) (Primary Dx); Medicine in [place] Hypertension B enign Renovascular [facility] a [address] [place] [address] Social History Tobacco Use Types [...] More than 4 times per year 06/14/2019 amish services? Do you belong to any clubs [...] Sign Reading Time Taken Comments Blood Pressure 116/74 10/18/2017 1:49 PM BILLING CLINICIAN Pulse 68 10/18/2017 1:49 PM BILLING CLINICIAN Temperature 36.3 ??C (97.3 ??F) 10/18/2017 1:49 PM BILLING CLINICIAN Respiratory Rate 20 10/18/2017 1:49 PM BILLING CLINICIAN Oxygen Saturation - - Inhaled Oxygen Concentration - - Weight 113 kg (250 lb) 10/18/2017 1:49 PM BILLING CLINICIAN Height 174 cm (5' 8.5) 10/18/2017 1:49 PM BILLING CLINICIAN Body Mass Index 37.46 10/18/2017 1:49 PM BILLING CLINICIAN documented in this encounter Progress Notes Cathy Mccoy M.D. - 10/18/2017 2:00 PM CST SUBJECTIVE CHIEF COMPLAINT / REASON FOR VISIT Jorge Chance is a 72 y.o. male who presents for evaluation of Diabetes (follow up). HISTORY OF PRESENT ILLNESS Patient is a 72-year-old male here with his for diabetic check. He had his hemoglobin A1c done previously and it was 7.5 which is up from 6.4 last time he says he uses more insulin in the winter because he is not as active. He does say he has been having some charley horses. Eyes: Positive for visual problems. Gastrointestinal: Positive for diarrhea. Occ. diarrhea Genitourinary: Positive for decreased libido and erectile dysfunction. Hematologic: Bruises/bleeds easily: .exa. Neurological: Positive for loss of balance or tendency to fall easily. Helped with Vitamen E Psychiatric/Behavioral: Positive for decreased libido and sleep disturbance. Feeling anxious in pasttwo weeks: .exa. The following systems were negative: Constitutional, Skin, ENT, CV, Respiratory, Hematologic, Musculoskeletal The following portions of the patient's history were reviewed and updated as appropriate: allergies,current medications, family history, medical history, social history, surgical history and problem list. OBJECTIVE BP 116/74 (BP Location: Left arm, Patient Position: Sitting, Cuff Size: Large) Pulse 68 Temp 36.3 ??C (Temporal) Resp 20 Ht 174 cm Wt 113.4 kg BMI 37.46 kg/m?? PHYSICAL EXAM Constitutional: He is oriented to person, place, and time. He appears well- developed and well-nourished. Neck: Normal range of motion. Neck supple. No thyromegaly present. Cardiovascular: Normal rate, regular rhythm, normal heart sounds and intact distal pulses. He exhibits no edema. Exam reveals no gallop and no friction rub. No murmur heard. Dorsal pedal pulses and ankle pulses are within normal limits. Pulmonary/Chest: Effort normal and breath sounds normal. No respiratory distress. He has no wheezes.He has no rales. Abdominal: Soft. Bowel sounds are normal. He exhibits no distension and no mass. There is no tenderness. There is no rebound and no guarding. Musculoskeletal: Normal range of motion. He exhibits no tenderness or deformity. Neurological: He is alert and oriented to person, place, and time. He has normal reflexes. He exhibits normal muscle tone. He has decreased sensation on left in the whole foot and on the right mainly his toes. Skin: Skin is warm and dry. On the right foot there is eschar on the dorsum that is healing ASSESSMENT / PLAN #1 Diabetes Mellitus Type 2 (HCC) He is using insulin twice a day which is quite a big dose of 90 units of 7525 insulin mix. This is likely due to his pancreas not functioning well he needs refills of his syringe needles and his insulin. Were going to get a hemoglobin A1c microalbumin the next time in 6 months. - Hemoglobin A1c; Future - Microalbumin, Random, Urine; Future #2 Hypertension Benign Renovascular He is doing well on his current regimen will do a basic metabolic panel in 6 months. Other orders - Family Medicine office visit (clinic) - insulin lispro protamin-lispro (HumaLOG Mix 75-25) 100 unit/mL (75-25) injection; Inject 0.9 mL (90 Units total) under the skin 2 (two) times a day., Starting Mon10/18/2017, Until Mon04/16/2018, Normal - allopurinol (for_ZYLOPRIM) 100 mg tablet; Take 1 tablet (100 mg total) by mouth 2 (two) times a day., Starting Mon10/18/2017, Normal - fluocinonide (for_LIDEX) 0.05 % external solution; Apply 1 application topically as needed for rash (5-6 x month)., Starting Mon10/18/2017, Normal - gemfibrozil (for_LOPID) 600 mg tablet; Take 1 tablet (600 mg total) by mouth 2 (two) times a day.,Starting Mon10/18/2017, Normal - insulin syringe-needle U-100 (ULTRA COMFORT INSULIN SYRINGE) 1 mL 31 gauge x 16 syringe; Inject twice daily E11.9. Ultcare Ins syringe 1ml 31G x 16, Normal - nitroglycerin (for_NITROSTAT) 0.4 mg SL tablet; Place 1 tablet (0.4 mg total) under the tongue every 5 (five) minutes as needed for chest pain., Starting Mon10/18/2017, Normal Return as needed and in 6 months total time spent was 45 minutes with 40 minutes in counseling coordination of care. ING CLINICIAN documented in this encounter Plan of Treatment Not on filedocumented as of this encounter Results (ABNORMAL) Microalbumin, Random, Urine (05/04/2018 9:20 AM CDT) [facility] Method Time Signature Microalbumin 70.0 mg/L 05/04/2018 [facility] 3:02 PM CDT [facility] Creatinine 64 mg/dL 05/04/2018 [facility] 3:02 PM T [facility] Albumin/Creatinin 109 (H) <17 mg/g 05/04/2018 [facility] e Ratio 3:02 PM T [facility] Specimen Anatomical Collection Method Collection Time Receive d Time (Source) Location / / Volume Laterality Urine (Urine, 05/04/2018 9:20 AM 05/04/20 18 2:06 Clean Catch) CDT PM CDT Cathy Mccoy M.D. LAB URINE ORDERABLES Performing Organization Address City/State/ZIP Code Phon e Number [facility] [address] [place] [address] LAB (ABNORMAL) Hemoglobin A1c (05/04/2018 9:15 AM CDT) P athologist Signature Hemoglobin A1c, 6.4 (H) 4.2 - 5.6 05/04/2018 [facility] B % 1:14 PM CDT [facility] Comment: Hemoglobin A1c values of 5.7-6.4 percent indicate an increased risk for developing diabetes davie crawford. In diabetic patients, HbA1c goals should be discussed with healthcare provider. Specimen Anatomical Collection Method Collection Time Receive d Time (Source) Location / / Volume Laterality Blood (Blood, 05/04/2018 9:15 AM 05/04/20 18 Venous) CDT 12:27 PM CDT Cathy Mccoy M.D. LAB BLOOD ADD-ON Performing Organization Address City/State/ZIP Code Phon e Number [facility] [address] [place] [phone] [facility] documented in this encounter Visit Diagnoses Diagnosis Diabetes Mellitus Type 2 (HCC) - Primary Hypertension Benign Renovascular documented in this encounter Care Teams Grass Farm Laborer Relationship Specialty Start Date End Date Cathy Mccoy M.D. PCP - General 02/23/17 12/18/19 documented as of this encounter
--- OUTSIDE RECORDS SUMMARY | 2022-05-24 18:26 | XMS_ITS | Encounter Summary ---
:1945 Author Organization [facility] Address [address] [place] [address] Care Team Providers Name Role Phone Cathy Mccoy M.D. Primary Care Provider Unavailable Reason for Referral Outpatient (Routine) - Closed Specialty Diagnoses / Procedures Referred By Contact Refer red To Contact Family Cathy Crook M.D. [address] [address] Referral ID Status Reason Start Date Expiration Date Visits Requ ested Visits Authorized [id number] Closed 12/19/2018 12/19/2019 1 1 Reason for Visit Reason Comments Diabetes follow up Outpatient (Routine) - Closed Specialty Diagnoses / Procedures Referred By Contact Refer red To Contact Family Cathy Crook M.D. [address] [address] Referral ID Status Reason Start Date Expiration Date Visits Requ ested Visits Authorized [id number] Closed 06/05/2018 06/05/2019 1 1 Encounter Details Date Type Department Care Team Description 12/19/2018 Office Visit Department of Family Brigid Mccoy s Mellitus Type 2 (HCC) (Primary Dx); Medicine in [place] Pancreatitis C hronic (HCC); [facility] a Arrest Cardiac (HCC) [address] [place] [phone] Social History Tobacco Use Types Packs/Day [...] 06/14/2019 organizations such as yazidi groups, unions, [employer] or athletic groups, or school groups? How [...] Sign Reading Time Taken Comments Blood Pressure 114/76 12/19/2018 9:58 AM CDT Pulse 72 12/19/2018 9:58 AM CDT Temperature 36.4 ??C (97.5 ??F) 12/19/2018 9:58 AM CDT Respiratory Rate 20 12/19/2018 9:58 AM CDT Oxygen Saturation - - Inhaled Oxygen Concentration - - Weight 113 kg (250 lb) 12/19/2018 9:58 AM CDT Height 191 cm (6' 3.2) 12/19/2018 9:58 AM CDT Body Mass Index 31.08 12/19/2018 9:58 AM CDT documented in this encounter Progress Notes Cathy Mccoy M.D. - 12/19/2018 10:00 AM CDT SUBJECTIVE CHIEF COMPLAINT/REASON FOR VISIT Chief Complaint Patient presents with ??? Diabetes follow up HISTORY OF PRESENT ILLNESS Jorge Chance is a 73 y.o. male who presents for diabetes follow-up. He says his blood sugars are all over but mostly in the morning there between 80 and 110 and in the afternoon there between 120 and 130. When he worked really hard loading some would his sugars will go down the 50 so we cut back on his insulin when he knew we would do a lot of work. He has had his labs drawn in his hemoglobin A1c was 5.9, total cholesterol 113, triglycerides 109, HDL 25 which would be expected with everything else being low, and LDL 66. He takes 88 units of Humalog 75/25 twice a day. He also takes metformin. He does have some diarrhea occasionally and he can get some bleeding rectally afterwards. He says he has a lot of gas and occasional incontinence. Please see review of systems for discussion of otherproblems REVIEW OF SYSTEMS Constitutional: Positive for fatigue. Tires easily Skin: Positive for skin rash. There is a couple red spots on both arms that were just noticed today. They were pimples the patient squeezed them Eyes: Positive for visual problems. ENT: Positive for difficulty hearing. Wax in ears Respiratory: Positive for dyspnea. With extreme exertion Gastrointestinal: Positive for diarrhea. Occasionally has 1 day of diarrhea and afterwards some bleeding rectally. Occasional incontinence and lots of gas Genitourinary: Positive for erectile dysfunction. Occasionally Neurological: Positive for numbness or shooting pain in hands, arms, legs, or feet and loss of balance or tendency to fall easily. Vitamin-D is helping balance Psychiatric/Behavioral: Declines medication The following systems were negative: CV, , Hematologic, Musculoskeletal ALLERGIES/CONTRAINDICATIONS Allergies Allergen Reactions ??? Adhesive Tape-Silicones Rash ??? Aspirin Other (see comments) Nosebleed ??? Atorvastatin Other (see comments) Chest pain ??? Bee Venom Protein (Honey Bee) Other (see comments) ??? Clindamycin Other (see comments) ??? Penicillin Shortness of breath Hives CURRENT MEDICATIONS Current Outpatient Prescriptions Medication Sig Dispense Refill ??? albuterol (for_PROVENTIL HFA,VENTOLIN HFA) 90 mcg/actuation inhaler Inhale 2 puffs every 4 (four) hours as needed. ??? allopurinol (ZYLOPRIM) 100 mg tablet Take 1 tablet (100 mg total) by mouth 2 (two) times a day. 180 tablet 2 ??? benzocaine 10 % liquid Apply 1 application topically 4 (four) times a day. ??? BISMUTH SUBSALICYLATE ORAL Take by mouth as needed. ??? blood sugar diagnostic (ONETOUCH ULTRA BLUE [...] (5-6 x month). 20 mL 3 ??? FLUZONE HIGH-DOSE 2016-, PF, vaccine INJECT 0.5ML ANNUALLY 0 ??? FLUZONE HIGH-DOSE , PF, vaccine INJECT 0.5ML ANNUALLY 0 ??? gemfibrozil (LOPID) 600 mg tablet Take 1 tablet (600 mg total) by mouth 2 (two) times a day. 180tablet 2 ??? HUMALOG MIX 75-25,U-100,INSULN 100 unit/mL (75-25) injection INJECT 0.9 ML (90 UNITS) UNDER THE SKIN TWICE A DAY 60 mL 4 ??? ibuprofen (for_ADVIL,MOTRIN) 200 mg tablet Take 2 tablets by mouth every 4 (four) hours as needed. ??? insulin syringe-needle U-100 1 mL 31 gauge x 5/16 syringe USE TO INJECT INSULIN TWICE DAILY E11.9 200 each 3 ??? xdapcy-ymtsopic-lunbeke (CREON) 24,000-76,000-120,000 Unit per capsule Take 2 capsules by mouth 3 (three) times a day. 180 capsule 11 ??? lisinopril (PRINIVIL,ZESTRIL) 5 mg tablet TAKE 1 TABLET (5 MG TOTAL) BY MOUTH DAILY. 90 tablet 3 ??? metFORMIN XR (GLUCOPHAGE-XR) 500 mg 24 [...] (four) times a day as needed. ??? vitamin E 400 unit capsule Take 1 capsule (400 Units total) by mouth daily. 30 capsule 11 ??? ADACEL,TDAP ADOLESN/ADULT,,PF, vaccine OBJECTIVE VITAL SIGNS BP 114/76 (BP Location: Left arm, Patient Position: Sitting, Cuff Size: Large) Pulse 72 Temp 36.4 ??C (Temporal) Resp 20 Ht 191 cm Wt 113.4 kg BMI 31.08 kg/m?? PHYSICAL EXAMINATION General: The patient is in no apparent distress and is alert and oriented. Mood and affect normal. Patient is very pleasant. Neck: Supple without lymphadenopathy or thyromegaly. Lungs: Clear to auscultation bilaterally. Heart: Regular rate and rhythm without murmur. Dorsal pedal and ankle pulses are strong Abdomen: Soft, nontender without hepatosplenomegaly, rebound or rigidity. Skin: To pimples on each arm, noted this morning. Three or 4 Red spots on left foot. Right heel has a crack. Extremities: No cyanosis, clubbing or edema. Patient has pes planus Musculoskeletal: Normal range of motion. Strength is symmetric and appropriate for age. Neuro: Balance, coordination and gait are normal. Speech and recall are normal. Decreased sensation ASSESSMENT / PLAN #1 Diabetes Mellitus Type 2 (HCC) He is doing well with his sugars and will continue on this dose of insulin. He should return in 6 months at that time we will check hemoglobin A1c and microalbumin - Hemoglobin A1c; Future; Expected date: 06/20/2019 - Microalbumin, Random, Urine; Future; Expected date: 06/20/2019 #2 Pancreatitis Chronic (HCC) He follows with GI for this and takes Creon. 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 As far as I can see he has not seen Cardiology since 2008 but he also has not had any problems. We will refill his nitroglycerin and we are following his risk factors including diabetes, cholesterol, and hypertension. Other orders - Family Medicine office visit (clinic) - Self - nitroglycerin (NITROSTAT) 0.4 mg SL tablet; Place 1 tablet (0.4 mg total) under the tongue every 5(five) minutes as needed for chest pain., Starting Mon12/19/2018, Normal - Family Medicine office visit (clinic) - Self; Future; Expected date: 06/20/2019 ADMINISTRATIVE BILLING Total time spent 30 minutes, 25 minutes spent in counseling and coordination of care. documented in this encounter Plan of Treatment Scheduled Referrals Name Type Priority Associated Diagnoses Order S [facility] Medicine Outpatient Referral Routine Expec ann: office visit 06/20/2019 (clinic) - Self (Approximate ), Expires: 12/19/2021 documented as of this encounter Results (ABNORMAL) Microalbumin, [...] Organization Address City/State/ZIP Code Phon e Number [address] [address] LAB (ABNORMAL) Hemoglobin A1c (06/03/2019 8:55 AM [...] Organization Address City/State/ZIP Code Phon e Number [facility]- [address] [place] [phone] [place] [facility] documented in this encounter Visit Diagnoses Diagnosis Diabetes Mellitus Type 2 (HCC) - Primary Pancreatitis Chronic (HCC) Arrest Cardiac (HCC) documented in this encounter Care Teams Special Education Resource Room Teacher Relationship Specialty Start Date End Date Cathy Mccoy M.D. PCP - General 02/23/17 12/18/19 documented as of this encounter
--- OUTSIDE RECORDS SUMMARY | 2022-05-24 18:26 | XMS_ITS | Encounter Summary ---
:1945 Author Organization [facility] Address [address] [place] [address] Care Team Providers Name Role Phone Cathy Mccoy M.D. Primary Care Provider Unavailable Reason for Visit Reason Onset Date Comments Med concern 10/01/2018 Encounter Details Date Type Department Care Team Description 10/01/2018 Clinical Communication Department of Kedar Ellison, Med concern Gastroenterology in M.D[place] [address] [phone] Social History Tobacco Use Types Packs/Day [...] or relatives? How often do you attend methodist or More than 4 times per year 06/14/2019 nondenominational services? Do you belong to any clubs or Yes 06/14/2019 organizations such as methodist groups, unions, fraternal or athletic groups, or [...] this encounter Miscellaneous Notes Telephone Encounter - Clara Pereira L.P.N. - 10/01/2018 4:00 PM DELIVERY [employer] Attempted to reach pt however he was not available. Spoke with his , Elham and informed her thatboth prescriptions are valid until March 2019. She had no further questions at this time. [employer] Telephone Encounter - Keagan Lu - 10/01/2018 9:13 AM CST Patient called in today and is concerned his meds will need to be updated since Dr. Ellison is no longer his dr. Could you help with this and call patient if needed. He uses [facility]. Thanks [employer] documented in this encounter Plan of Treatment Not on filedocumented as of this encounter Visit Diagnoses Not on filedocumented in this encounter Care Teams Screw Cutter Relationship Specialty Start Date End Date Cathy Mccoy M.D. PCP - General 02/23/17 12/18/19 documented as of this encounter
--- OUTSIDE RECORDS SUMMARY | 2022-05-24 18:26 | XMS_ITS | Encounter Summary ---
:1945 Author Organization [facility] Address [address] [place] [address] Care Team Providers Name Role Phone Cathy Mccoy M.D. Primary Care Provider Unavailable Encounter Details Date Type Department Care Team Description 05/04/2018 Hospital Encounter Department of Nadine, Diabetes Mellitus Laboratory Medicine [place] Type 2 (HCC) in [place], [place] [address] [place] [address] Social History Tobacco Use Types [...] More than 4 times per year 06/14/2019 congregation services? Do you belong to any clubs [...] inhaler allopurinol (ZYLOPRIM) TAKE 1 TABLET (100 MG 180 tablet 2 10/23/2018 100 mg tablet TOTAL) BY MOUTH 2 (TWO) TIMES A DAY. benzocaine 10 % liquid Apply 1 application 0 04/201608/15/2019 topically 4 (four) times a day. BISMUTH SUBSALICYLATE Take by mouth as 0 03/13/20 09 04/01/2019 ORAL needed. diphenhydrAMINE Take 25 mg by mouth as 0 04/14/20 17 06/09/2020 (for_BENADRYL) 25 mg needed. tablet fluocinonide Apply 1 application 20 mL 3 10/18/2017 (for_LIDEX) 0.05 % topically as needed external solution for rash (5-6 x month). FLUZONE HIGH-DOSE INJECT 0.5ML ANNUALLY 0 017 04/01/2019 2017-18, PF, vaccine gemfibrozil Take 1 tablet (600 mg 180 tablet 3 10/18/2017 (for_LOPID) 600 mg total) by mouth 2 tablet (two) times a day. insulin lispro Inject 0.9 mL (90 60 mL 4 10/18/201702/2018 protamin-lispro Units total) under the (HumaLOG Mix 75-25) skin 2 (two) times a 100 unit/mL (75-25) day. injection insulin syringe-needle Inject twice daily 200 each 1 10/1805/18/2018 U-100 (ULTRA COMFORT E11.9. [employer] Ins INSULIN SYRINGE) 1 mL syringe 1ml 31G x 31 gauge x 01/24 01/24 syringe slqysy-mwlregwe-tdthhb Take 2 capsules by 180 capsule 11 03/1104/08/2019 e (CREON) mouth 3 (three) times 24,000-76,000-120,000 a day. Unit per capsuleIndications: Pancreatitis Chronic (HCC) lisinopril Take 1 tablet (5 mg 90 tablet 3 09/01/201709/02 (for_PRINIVIL,ZESTRIL) total) by mouth daily. 5 mg tablet metFORMIN XR Take 1 tablet (500 mg 90 tablet 1 11/29/2017 0 05/26/2018 (for_GLUCOPHAGE-XR) total) by mouth daily. 500 mg 24 hr tablet metoprolol tartrate Take 0.5 tablets (12.5 90 tablet 3 08/1206/05/2018 (for_LOPRESSOR) 25 mg mg total) by mouth 2 tablet (two) times a day. nitroglycerin Place 1 tablet (0.4 mg 25 tablet 0 10/18/2017 12/19/2018 (for_NITROSTAT) 0.4 mg total) under the SL tablet tongue every 5 (five) minutes as needed for chest pain. documented as of this encounter Plan of Treatment Not on filedocumented as of this encounter Procedures Procedure Name Priority Date/Time Associated Diagnosis Comme nts ALBUMIN, RANDOM, U Routine 05/04/2018 9:20 AM Diabetes Mellitu s Results for this CDT Type 2 (HCC) procedure are i n the results section. HEMOGLOBIN A1C, B Routine 05/04/2018 9:15 AM Diabetes Mellitus Results for this CDT Type 2 (HCC) procedure are i n the results section. documented in this encounter Results (ABNORMAL) Microalbumin, Random, Urine (05/04/2018 9:20 AM CDT) Patholo gist Method Time Signature Microalbumin 70.0 mg/L 05/04/2018 [facility] 3:02 PM CDT [facility] Creatinine 64 mg/dL 05/04/2018 [facility] 3:02 PM CDT [facility] Albumin/Creatinin 109 (H) <17 mg/g 05/04/2018 [facility] e Ratio 3:02 PM CDT [facility] Specimen Anatomical Collection Method Collection Time Receive d Time (Source) Location / / Volume Laterality Urine (Urine, 05/04/2018 9:20 AM 05/04/20 18 2:06 Clean Catch) CDT PM CDT Cathy Mccoy M.D. LAB URINE ORDERABLES Performing Organization Address City/[facility]/ZIP Code Phon e Number [facility] [address] [place] [address] LAB (ABNORMAL) Hemoglobin A1c (05/04/2018 9:15 AM CDT) P athologist Signature Hemoglobin A1c, 6.4 (H) 4.2 - 5.6 05/04/2018 [facility] B % 1:14 PM CDT [facility] Comment: Hemoglobin A1c values of 5.7-6.4 percent indicate an increased risk for developing diabetes m ellitus. In diabetic patients, HbA1c goals should be discussed with healthcare provider. Specimen Anatomical Collection Method Collection Time Receive d Time (Source) Location / / Volume Laterality Blood (Blood, 05/04/2018 9:15 AM 05/04/20 18 Venous) CDT 12:27 PM CDT Cathy Mccoy M.D. LAB BLOOD ADD-ON Performing Organization Address City/[facility]/ZIP Code Phon e Number [facility]- [address] [place] [address], [place] [address] [place] [facility] documented in this encounter Visit Diagnoses Diagnosis Diabetes Mellitus Type 2 (HCC) documented in this encounter Care Teams Hub Borer Relationship Specialty Start Date End Date Cathy Mccoy M.D. PCP - General 02/23/17 12/18/19 documented as of this encounter
--- OUTSIDE RECORDS SUMMARY | 2022-05-24 18:26 | XMS_ITS | Encounter Summary ---
:1945 Author Organization [facility] Address [address] [place] [address] Care Team Providers Name Role Phone Cathy Mccoy M.D. Primary Care Provider Unavailable Reason for Referral Outpatient (Routine) - Closed Specialty Diagnoses / Procedures Referred By Contact Refer red To Contact Family Medicine Cathy Mccoy M.D. [address] [address] Referral ID Status Reason Start Date Expiration Date Visits Requ ested Visits Authorized [id number] Closed 05/29/2018 05/29/2019 1 1 Encounter Details Date Type Department Care Team Description 05/29/2018 Orders Only Department of Family Karissa Horton, R.NKamila Medicine, [facility], in [address] [place] [phone] [place] [address] [place] [address] Social History Tobacco Use Types Packs/Day Years [...] or relatives? How often do you attend hoahaoism or More than 4 times per year 06/14/2019 adventist services? Do you belong to any clubs or Yes 06/14/2019 organizations such as hoahaoism groups, unions, fraternal or athletic groups, or [...] Name Type Priority Associated Diagnoses Order S [facility] Family Medicine Outpatient Referral Routine Expec ann: office visit 05/29/2018 (clinic) (Approximate), Expires: 05/29/2021 documented as of this encounter Visit Diagnoses Not on filedocumented in this encounter Care Teams Insurance Administrative Assistant Relationship Specialty Start Date End Date Cathy Mccoy M.D. PCP - General 02/23/17 12/18/19 documented as of this encounter
--- OUTSIDE RECORDS SUMMARY | 2022-05-24 18:26 | XMS_ITS | Encounter Summary ---
:1945 Author Organization [facility] Address [address] [place] [address] Care Team Providers Name Role Phone Cathy Mccoy M.D. Primary Care Provider Unavailable Reason for Visit Reason Comments Med Refill Encounter Details Date Type Department Care Team Description 11/29/2017 Refill Department of Family Medicine, Maxine Polo RKamilaNKamila Med Refill [facility] [place] [address] [place] [address] Social History Tobacco Use Types Packs/Day Years [...] on filedocumented in this encounter Care Teams Vp Scientific Relationship Specialty Start Date End Date Cathy Mccoy M.D. PCP - General 02/23/17 12/18/19 documented as of this encounter
--- OUTSIDE RECORDS SUMMARY | 2022-05-24 18:26 | XMS_ITS | Encounter Summary ---
:1945 Author Organization [facility] Address [address] [place] [address] Care Team Providers Name Role Phone Cathy Mccoy M.D. Primary Care Provider Unavailable Reason for Visit Reason Comments Med Refill Encounter Details Date Type Department Care Team Description 03/06/2018 Refill Department of Family Medicine Cathy Mccoy Med Refill in [facility] ynes Pacheco [address] [place] [address] Social History Tobacco Use [...] 06/14/2019 organizations such as adventism groups, unions, fraternal or athletic groups, or [...] Miscellaneous Notes Telephone Encounter - Malka Horton R.N. - 03/06/2018 8:16 AM CDT Last seen 10/18/17 Last filled 10/18/17 documented in this encounter Plan of Treatment Not on filedocumented as of this encounter Visit Diagnoses Not on filedocumented in this encounter Care Teams Online Marketing Specialist Relationship Specialty Start Date End Date Cathy Mccoy M.D. PCP - General 02/23/17 12/18/19 documented as of this encounter
--- OUTSIDE RECORDS SUMMARY | 2022-05-24 18:26 | XMS_ITS | Encounter Summary ---
:1945 Author Organization [facility] Address [address] [place] [address] Care Team Providers Name Role Phone Cathy Mccoy M.D. Primary Care Provider Unavailable Encounter Details Date Type Department Care Team Description 10/16/2017 Hospital Encounter Department of [place], Hyperlip idemia; Laboratory Medicine Junior Morgan Diabete s Mellitus Type 2 Without Complication (HCC); in [place], Hypertension NOS [place] [address] [place] [address] Social History Tobacco Use Types Packs/Day Years Used Date Smoking Tobacco: Never Alcohol Habits Answer Date Recorded How often [...] or relatives? How often do you attend uatsdin or More than 4 times per year 06/14/2019 judaism services? Do you belong to any clubs or Yes 06/14/2019 organizations such as uatsdin groups, unions, fraternal or athletic groups, or [...] HFA,VENTOLIN HFA) 90 needed. mcg/actuation inhaler allopurinol Take 1 tablet (100 mg 180 tablet 0 09/01/2017 (for_ZYLOPRIM) 100 mg total) by mouth 2 tablet (two) times a day. benzocaine 10 % liquid Apply 1 application 0 04/201608/15/2019 topically 4 (four) times a day. BISMUTH SUBSALICYLATE Take by mouth as 0 03/13/20 09 04/01/2019 ORAL needed. diphenhydrAMINE Take 25 mg by mouth as 0 04/14/20 17 06/09/2020 (for_BENADRYL) 25 mg needed. tablet fluocinonide Apply 1 application 0 12/02/201503/2018 (for_LIDEX) 0.05 % topically as needed. external solution FLUZONE HIGH-DOSE INJECT 0.5ML ANNUALLY 0 017 04/01/2019 2017-18, PF, vaccine gemfibrozil Take 1 tablet (600 mg 180 tablet 3 09/01/2017 (for_LOPID) 600 mg total) by mouth 2 tablet (two) times a day. HUMALOG MIX 75-25 100 INJECT 75 UNITS IN THE 60 mL 4 10/18/2017 unit/mL (75-25) MORNING AND 75 UNITS injection IN THE EVENING insulin lispro HumaLOG Mix 75/25 0 04/14/2017 protamin-lispro subcutaneous (HumaLOG Mix 75-25) suspension See 100 unit/mL (75-25) Instructions, 75 am injection and 75 pm E11.9, 60 mL, 4 Refill(s) insulin syringe-needle Inject twice daily 200 each 1 08/2810/18/2017 U-100 (ULTRA COMFORT E11.9. Ultcare Ins INSULIN SYRINGE) 1 mL syringe 1ml 31G x 31 gauge x 01/24 01/24 syringe nzwksi-rjogjadq-extgot Take 2 capsules by 0 03/3011/08/2017 e (for_CREON) mouth 3 (three) times 24,000-76,000-120,000 a day. Unit per capsule lisinopril Take 1 tablet (5 mg 90 tablet 3 09/01/201711/29 (for_PRINIVIL,ZESTRIL) total) by mouth daily. 5 mg tablet lisinopril Take 1 tablet (5 mg 90 tablet 3 09/01/201709/02 (for_PRINIVIL,ZESTRIL) total) by mouth daily. 5 mg tablet metFORMIN XR Take 1 tablet by mouth 0 12/14/2016 11/29/2017 (for_GLUCOPHAGE-XR) daily. 500 mg 24 hr tablet metoprolol tartrate Take 0.5 tablets (12.5 180 tablet 3 08/1211/29/2017 (for_LOPRESSOR) 25 mg mg total) by mouth 2 tablet (two) times a day. metoprolol tartrate Take 0.5 tablets (12.5 90 tablet 3 08/1206/05/2018 (for_LOPRESSOR) 25 mg mg total) by mouth 2 tablet (two) times a day. nitroglycerin Place 1 tablet under 0 04/14/2017 0 10/18/2017 (for_NITROSTAT) 0.4 mg the tongue every 5 SL tablet (five) minutes as needed. VITAMIN E ACETATE Take 1 capsule by 0 04/04/2017 03/29/2018 (VITAMIN E ORAL) mouth daily. documented as of this encounter Plan of Treatment Not on filedocumented as of this encounter Procedures Procedure Name Priority Date/Time Associated Diagnosis Comme nts ALBUMIN, RANDOM, U Routine 10/16/2017 11:07 Hyperlipidemia Res ults for this AM MANAGER READING procedure are i n the results section. LIPID PANEL, S Routine 10/16/2017 10:02 Hyperlipidemia Results for this AM MANA[facility]ING procedure are i n the results section. ASPARTATE Routine 10/16/2017 10:02 Hyperlipidemia Results f or this AMINOTRANSFERASE (AST), AM MANA[facility] READING proc edure are in S/P the results section. HEMOGLOBIN A1C, B Routine 10/16/2017 10:02 Diabetes Mellitus R esults for this AM MANA[facility]ING Type 2 Without procedure are in Complication (HCC) the resul ts section. BASIC METABOLIC PANEL, Routine 10/16/2017 10:02 Hypertension N OS Results for this S/P AM [facility] procedure are i n the results section. documented in this encounter Results (ABNORMAL) Microalbumin, Random, Urine (10/16/2017 11:07 AM [facility]) Patholo gist Method Time Signature Microalbumin 174.0 mg/L 10/17/2017 [facility] 12:03 AM [facility] Creatinine 113 mg/dL 10/17/2017 [facility] 12:03 AM [facility] Albumin/Creatinin 154 (H) <17 mg/g 10/17/2017 [facility] e Ratio 12:03 AM [facility] Specimen Anatomical Collection Method Collection Time Receive d Time (Source) Location / / Volume Laterality Urine 10/16/2017 11:07 10/16/2017 AM [facility] 11:36 PM [facility] Cathy Mccoy M.D. LAB URINE ORDERABLES Performing Organization Address City/State/ZIP Code Phon e Number [facility] [address] [place] [address] LAB (ABNORMAL) BMP (Basic Metabolic Panel) (10/16/2017 10:02 AM [facility]) P athologist Signature Potassium, S 5.2 3.6 - 5.2 10/16/2017 [facility] mmol/L 1:55 PM [facility] [place] [facility] Sodium, S 143 135 - 145 10/16/2017 [facility] mmol/L 1:55 PM [facility] Chloride, S 106 98 - 107 10/16/2017 [facility] mmol/L 1:55 PM [facility] Bicarbonate, S 24 22 - 29 10/16/2017 [facility] mmol/L 1:55 PM [facility] [place] [facility] Anion Gap 13 7 - 15 10/16/2017 [facility] 1:55 PM [facility] [place] [facility] BUN (Blood Urea 30 (H) 8 - 24 10/16/2017 [facility] Nitrogen), S mg/dL 1:55 PM [facility] [place] [facility] Creatinine 1.23 0.74 - 10/16/2017 [facility] 1.35 mg/dL 1:55 PM [facility] [place] [facility] eGFR 58 (L) >=60 10/16/2017 [facility] Non-Black/Afric mL/min/BSA 1:55 PM [facility]- [facility] [place] [facility] Comment: ----ADDITIONAL INFORMATION---- Estimated GFR calculated using the 2009 CKD_EPI creatinine equation. eGFR Black/ 67 >=60 mL/min/BSA 10/16/2017 1:55 PM [facility] [place] [facility] Comment: ----ADDITIONAL INFORMATION---- Estimated GFR calculated using the 2009 CKD_EPI creatinine equation. Calcium, Total, S 9.7 8.9 - 10.1 mg/dL 10/16/2017 1:55 PM [facility] [place] [facility] Glucose, S 189 (H) 70 - 140 mg/dL 10/16/2017 1:55 PM [facility] [place] [facility] Specimen Anatomical Collection Method Collection Time Receive d Time (Source) Location / / Volume Laterality Blood 10/16/2017 10:02 10/16/2017 1:10 AM [facility] Cathy Mccoy M.D. LAB BLOOD ADD-ON Performing Organization Address City/State/ZIP Code Phon e Number [facility] [address] [place] [phone] [place] LAB (ABNORMAL) Hemoglobin A1c (10/16/2017 10:02 AM [facility]) P athologist Signature Hemoglobin A1c, 7.4 (H) 4.2 - 5.6 10/16/2017 [facility] B % 2:26 PM [facility] [place] [facility] Comment: Hemoglobin A1c values greater than or eq ual to 6.5 percent are diagnostic for diabetes mellitus. ?? Diagnosis should be confirmed by repeat testing. ??In diabet ic patients, HbA1c goals should be discussed with healthcar e provider. Specimen Anatomical Collection Method Collection Time Receive d Time (Source) Location / / Volume Laterality Blood 10/16/2017 10:02 10/16/2017 1:08 AM [facility] PM [facility] Cathy Mccoy M.D. LAB BLOOD ADD-ON Performing Organization Address City/[facility]/ZIP Code Phon e Number [address] [phone] [place] LAB AST (Aspartate Aminotransferase) (10/16/2017 10:02 AM [facility]) Patholo gist Method Time Signature Aspartate 27 8 - 48 10/16/2017 [facility] Aminotransferase U/L 1:55 PM [facility] [employer] (AST), [employer] Specimen Anatomical Collection Method Collection Time Receive d Time (Source) Location / / Volume Laterality Blood 10/16/2017 10:02 10/16/2017 1:10 AM [facility] PM [facility] Cathy Mccoy M.D. LAB BLOOD ADD-ON Performing Organization Address City/[facility]/ZIP [facility] Phon e Number [address] [phone] [place] LAB (ABNORMAL) Lipid Panel (10/16/2017 10:02 AM [facility]) P athologist Signature Cholesterol, 130 mg/dL 10/16/2017 [facility] Total 1:55 PM [facility] [place] [facility] Comment: ----REFERENCE VALUE---- Desirable: < 200 Borderline high: 200 - 239 High: > or = 240 Triglycerides 150 (H) mg/dL 10/16/2017 1:[address] [facility] [place] [facility] Comment: ----REFERENCE VALUE---- Normal: <150 Borderline high: 150-199 High: 200-499 Very high: > or =500 Cholesterol, HDL, S 25 (L) >=40 mg/dL 10/16/2017 1:55 PM [facility] Calculated LDL 75 mg/dL 10/16/2017 1:55 PM [facility] Comment: ----REFERENCE VALUE---- Desirable: <100 Above Desirable: 100-129 Borderline high: 130-159 High: 160-189 Very high: > or =190 Cholesterol, Non-HDL, 105 mg/dL 10/16/2017 1:55 PM MANAGER READING [facility] [place] [facility] Comment: ----REFERENCE VALUE---- Desirable: <130 Above Desirable: 130-159 Borderline high: 160-189 High: 190-219 Very high: > or =220 Specimen Anatomical Collection Method Collection Time Receive d Time (Source) Location / / Volume Laterality Blood 10/16/2017 10:02 10/16/2017 1:10 AM [facility] PM MANA[facility] Cathy Mccoy M.D. LAB BLOOD ADD-ON Performing Organization Address City/State/ZIP Code Phon e Number [facility]- [address] [place] [address], [place] [phone] [place] [facility] documented in this encounter Visit Diagnoses Diagnosis Hyperlipidemia Diabetes Mellitus Type 2 Without Complic ation (HCC) Hypertension NOS documented in this encounter Care Teams Stogy Maker Relationship Specialty Start Date End Date Cathy Mccoy M.D. PCP - General 02/23/17 12/18/19 documented as of this encounter
--- OUTSIDE RECORDS SUMMARY | 2022-05-24 18:26 | XMS_ITS | Encounter Summary ---
:1945 Author Organization [facility] Address [address] [place] [address] Care Team Providers Name Role Phone Cathy Mccoy M.D. Primary Care Provider Unavailable Reason for Visit Reason Comments Med Refill Encounter Details Date Type Department Care Team Description 05/17/2018 Refill Department of Family Medicine Cathy Mccoy Med Refill in [facility] ynes Pacheco [address] [place] [address] Social History Tobacco Use [...] or relatives? How often do you attend orthodoxy or More than 4 times per year 06/14/2019 adventist services? Do you belong to any clubs or Yes 06/14/2019 organizations such as orthodoxy groups, unions, fraternal or athletic groups, or [...] this encounter Miscellaneous Notes Telephone Encounter - Dottie Jung - 05/17/2018 10:11 AM CDT Please do not reply to sender,emails are not monitored. Thank you. If you need a prescription refill please call your pharmacy. Please allow 3 business days for processing. Expert RN: N/A (Med Refill Only) Call Center Template: ??? May we leave a message for you on this phone? yes ??? What can I help you with today?needs a refill on his insulin has called the pharmacy - he will be in 3 weeks ??? If Medication Refill: o What is the name and strength of the medication? insulin o What do you use the medication for? o How many pills do you have left? o What pharmacy [facility] you use (include [facility] I will send this information to the appropriate staff member who will look into your concern. Is there anything else I can help you with today? Thank you for calling [facility]. documented in this encounter Plan of Treatment Not on filedocumented as of this encounter Visit Diagnoses Not on filedocumented in this encounter Care Teams Java Developer With Security Clearance Relationship Specialty Start Date End Date Cathy Mccoy M.D. PCP - General 02/23/17 12/18/19 documented as of this encounter
--- OUTSIDE RECORDS SUMMARY | 2022-05-24 18:26 | XMS_ITS | Encounter Summary ---
:1945 Author Organization [facility] Address [address] [place] [address] Care Team Providers Name Role Phone Cathy Mccoy M.D. Primary Care Provider Unavailable Reason for Visit Reason Onset Date Comments Med Refill 04/03/2018 Needs verbal approva l for Vitam E capsules quantity of 30 to be increased to quantit y of 100 due to packaging amount Encounter Details Date Type Department Care Team Description 04/03/2018 Refill Department of Kedar Ellison, Med Refill ([place] Vitam E capsules [address] [facility] quantity of 30 [place] [address] increased to quantity [phone] of 100 due to packaging amoun t) Social History Tobacco Use Types Packs/Day Years [...] this encounter Miscellaneous Notes Telephone Encounter - Keisha Radford R.N. - 04/03/2018 11:20 AM CDT Called pharmacy and spoke to Luca-advised her 100 capsule allowed w/3 refills. Antigone read prescription back and call ended Telephone Encounter - Rupa Dent - 04/03/2018 10:20 AM CDT Please do not reply to sender,emails are not monitored. Thank you. If you need a prescription refill please call your pharmacy. Please allow 3 business days for processing. Expert RN: N/A (Med Refill Only) Call Center Template: ??? May we leave a message for you on this phone? yes ??? What can I help you with today? [facility] called regarding the quantity for the Vitamin E capsules. Requested were 30 capsules, but capsules are packaged in 100. Please verify o.k. To increase quantity to 100. Call and give Reference #[id number]- [id number] and can talk to anyone. Thank you. ??? If Medication Refill: o What is the name and strength of the medication? Vitamin E capsules o What do you use the medication for? o How many pills do you have left? o What pharmacy do you use (include location)? [facility] [place], [place] I will send this information to the appropriate staff member who will look into your concern. Is there anything else I can help you with today? Thank you for calling [facility]. documented in this encounter Plan of Treatment Not on filedocumented as of this encounter Visit Diagnoses Not on filedocumented in this encounter Care Teams Veneer Splicer Relationship Specialty Start Date End Date Cathy Mccoy M.D. PCP - General 02/23/17 12/18/19 documented as of this encounter
--- OUTSIDE RECORDS SUMMARY | 2022-05-24 18:26 | XMS_ITS | Encounter Summary ---
:1945 Author Organization [facility] Address [address] [place] [address] Care Team Providers Name Role Phone Cathy Mccoy M.D. Primary Care Provider Unavailable Reason for Referral Outpatient (Routine) - Closed Specialty Diagnoses / Procedures Referred By Contact Refer red To Contact Family Cathy Crook M.D. [address] [phone] Referral ID Status Reason Start Date Expiration Date Visits Requ ested Visits Authorized [id number] Closed 06/05/2018 06/05/2019 1 1 Reason for Visit Reason Comments Diabetes 6 month. Outpatient (Routine) - Closed Specialty Diagnoses / Procedures Referred By Contact Refer red To Contact Family Cathy Crook M.D. [address] [phone] Referral ID Status Reason Start Date Expiration Date Visits Requ ested Visits Authorized [id number] Closed 05/29/2018 05/29/2019 1 1 Encounter Details Date Type Department Care Team Description 06/05/2018 Office Visit Department of Family Brigid Mccoy s Mellitus Type 2 (HCC) (Primary Dx); Medicine in [place] Hyperlipidemia ; [place] Hy[facility] Benign Renovasc ular [address] [place] [phone] Social History Tobacco Use Types Packs/Day [...] More than 4 times per year 06/14/2019 christianity services? Do you belong to any clubs or Yes 06/14/2019 organizations such as mormonism groups, unions, [employer] or athletic groups, or school groups? How [...] Sign Reading Time Taken Comments Blood Pressure 92/60 06/05/2018 8:00 AM CDT Pulse 58 06/05/2018 8:00 AM CDT Temperature 36.3 ??C (97.3 ??F) 06/05/2018 8:00 AM CDT Respiratory Rate 20 06/05/2018 8:00 AM CDT Oxygen Saturation - - Inhaled Oxygen Concentration - - Weight 111 kg (243 lb 13.3 oz) 06/05/2018 8:00 AM CDT Height 191 cm (6' 3.2) 06/05/2018 8:00 AM CDT Body Mass Index 30.32 06/05/2018 8:00 AM CDT documented in this encounter Progress Cathy Bowling M.D. - 06/05/2018 8:00 AM CDT SUBJECTIVE CHIEF COMPLAINT/REASON FOR VISIT Chief Complaint Patient presents with ??? Diabetes 6 month. HISTORY OF PRESENT ILLNESS Jorge Chance is a 73 y.o. male who presents for diabetic check. He has already had labs done and his hemoglobin A1c was 6.4 and microalbumin was 70. He uses Humalog mix 75-25 90 units twice a day and he went low today. He says is rare that he goes low though. Usually in the afternoon he is 180 and in the morning between 95 and 120. He says in the summer he is more active so he goes low more and we thought maybe he should decrease down to 85 units if he knows he is going to be active. He also has a skin lesion on his back left shoulder and 1 on his left thigh that he wanted me to look at. Review of systems Constitutional: Positive for fatigue. Skin: Positive for change in mole or skin spot. Lt. Thigh nodular lesion. Benjamin K on left posterior shoulder Eyes: Positive for visual problems. Cataracts Gastrointestinal: Positive for diarrhea. Occasional Genitourinary: Positive for erectile dysfunction. Psychiatric/Behavioral: Positive for snores loudly. The following systems were negative: ENT, CV, Respiratory, , Hematologic, Musculoskeletal, Neuro ALLERGIES/CONTRAINDICATIONS Allergies Allergen Reactions ??? Adhesive Tape-Silicones [...] 100 mg tablet TAKE 1 TABLET (100 MG TOTAL) BY MOUTH 2 (TWO) TIMES A DAY. 180 tablet 2 ??? benzocaine 10 % liquid Apply 1 application topically 4 (four) times a day. ??? BISMUTH SUBSALICYLATE ORAL Take by mouth as needed. ??? diphenhydrAMINE (for_BENADRYL) 25 mg tablet Take [...] month). 20 mL 3 ??? FLUZONE HIGH-DOSE 2017-, PF, vaccine INJECT 0.5ML ANNUALLY 0 ??? gemfibrozil (for_LOPID) 600 mg tablet Take 1 tablet (600 mg total) by mouth 2 (two) times a day.180 tablet 3 ??? HUMALOG MIX 75-25,U-100,INSULN 100 unit/mL (75-25) injection INJECT 0.9 ML (90 UNITS) UNDER THE SKIN TWICE A DAY 60 mL 4 ??? ibuprofen (for_ADVIL,MOTRIN) 200 mg tablet Take 2 tablets by mouth every 4 (four) hours as needed. ??? insulin syringe-needle U-100 1 mL 31 gauge x 5/16 syringe USE TO INJECT INSULIN TWICE DAILY E11.9 200 each 3 ??? qfncwf-qwoabcap-kwnjnur (CREON) 24,000-76,000-120,000 Unit per capsule Take 2 capsules by mouth 3 (three) times a day. 180 capsule 11 ??? lisinopril (for_PRINIVIL,ZESTRIL) 5 mg tablet Take 1 tablet (5 mg total) by mouth daily. 90 tablet 3 ??? metFORMIN XR (GLUCOPHAGE-XR) 500 mg 24 hr tablet TAKE 1 TABLET (500 MG TOTAL) BY MOUTH DAILY. 90tablet 0 ??? metoprolol tartrate (for_LOPRESSOR) 25 mg tablet Take 0.5 tablets (12.5 mg total) by mouth 2 (two) times a day. 90 tablet 3 ??? nitroglycerin (for_NITROSTAT) 0.[address] 1 tablet [...] ADACEL,TDAP ADOLESN/ADULT,,PF, vaccine OBJECTIVE VITAL SIGNS BP 92/60 (BP Location: Left arm, Patient Position: Sitting, Cuff Size: Large) Pulse (!) 58 Temp 36.3 ??C (Temporal) Resp 20 Ht 191 cm Wt 110.6 kg BMI 30.32 kg/m?? PHYSICAL EXAMINATION General: The patient is in no apparent distress and is alert and oriented. Mood and affect normal. Patient is very pleasant. Lungs: Clear to auscultation bilaterally. Heart: Regular rate and rhythm without murmur. Abdomen: Soft, nontender without hepatosplenomegaly, rebound or rigidity. Skin: On his posterior left shoulder there is a 1 cm dark rough lesion that appears to be a seborrheic keratosis. On the anterior left thigh there is a brown lesion that appears to be at double nodularlesion that is about 1 x 0.3 cm. We asked him to come back to biopsy the thigh lesion. Extremities: No cyanosis, clubbing or edema. Musculoskeletal: Normal range of motion. Strength is symmetric and appropriate for age. ASSESSMENT / PLAN #1 Diabetes Mellitus Type 2 (HCC) We ordered 6 month appointment with hemoglobin A1c, lipid, AST, and basic metabolic panel. Refill meds as needed. #2 Skin lesion Asked him to come back to biopsy the thigh lesion. I am sure the lesion on his shoulders benign seborrheic keratosis. #3 Hypertension Well controlled on current regimen. Will check a basic in 6 months. #4 Hyperlipidemia Will check a lipid and AST in 6 months. Other orders - Family Medicine office visit (clinic) ADMINISTRATIVE BILLING Total time spent 30 minutes, 25 minutes spent in counseling and coordination of care. documented in this encounter Plan of Treatment Scheduled Referrals Name Type Priority Associated Diagnoses Order [facility] Family Medicine Outpatient Referral Routine Expec ann: office visit 12/03/2018 (clinic) - Self (Approximate ), Expires: 06/05/2021 documented as of this encounter Results (ABNORMAL) Hemoglobin A1c (12/12/2018 8:54 AM CDT) P athologist Signature Hemoglobin A1c, 5.9 (H) 4.2 - 5.6 12/12/2018 [facility] B % 1:33 PM CDT [facility] [place] [facility] Comment: Hemoglobin A1c values of 5.7-6.4 percent indicate an increased risk for developing diabetes davie crawford. In diabetic patients, HbA1c goals should be discussed with healthcare provider. Specimen Anatomical Collection Method Collection Time Receive d Time (Source) Location / / Volume Laterality Blood (Blood, 12/12/2018 8:54 AM 12/13/19 19 Venous) CDT 12:42 PM CDT Cathy Mccoy M.D. LAB BLOOD ADD-ON Performing Organization Address [facility] Phon e Number [address] [place], [place] [address] [facility] (ABNORMAL) Lipid Panel (12/12/2018 8:54 AM CDT) athologist Signature Cholesterol, 113 mg/dL 12/12/2018 [facility] Total 1:21 PM CDT [facility] Comment: ----REFERENCE VALUE---- Desirable: < 200 Borderline high: 200 - 239 High: > or = 240 Triglycerides 109 mg/dL 12/12/2018 1:21 PM CDT [facility] Comment: ----REFERENCE VALUE---- Normal: <150 Borderline high: 150-199 High: 200-499 Very high: > or =500 Cholesterol, HDL, S 25 (L) >=40 mg/dL 12/12/2018 1:21 PM CDT [facility] Calculated LDL 66 mg/dL 12/12/2018 1:21 PM CDT [facility] Comment: ----REFERENCE VALUE---- Desirable: <100 Above Desirable: 100-129 Borderline high: 130-159 High: 160-189 Very high: > or =190 Cholesterol, Non-HDL, 88 mg/dL 12/12/2018 1:21 PM CDT [facility] Comment: ----REFERENCE VALUE---- Desirable: <130 Above Desirable: 130-159 Borderline high: 160-189 High: 190-219 Very high: > or =220 Specimen Anatomical Collection Method Collection Time Receive d Time (Source) Location / / Volume Laterality Blood (Blood, 12/12/2018 8:54 AM 12/13/19 19 Venous) CDT 12:43 PM CDT Cathy Mccoy M.D. LAB BLOOD ADD-ON Performing Organization Address City/[facility] Phon e Number [address] [place], [place] [address] [facility] (ABNORMAL) BMP (Basic Metabolic Panel) (12/12/2018 8:54 AM CDT) P athologist Signature Potassium, S 5.0 3.6 - 5.2 12/12/2018 [facility] mmol/L 1:21 PM [facility] Sodium, S 142 135 - 145 12/12/2018 [facility] mmol/L 1:21 PM [facility] Chloride, S 108 (H) 98 - 107 12/12/2018 [facility] mmol/L 1:21 PM [facility] Bicarbonate, S 21 (L) 22 - 29 12/12/2018 [facility] mmol/L 1:21 PM [facility] Anion Gap 13 7 - 15 12/12/2018 [facility] 1:21 PM [facility] BUN (Blood Urea 31 (H) 8 - 24 12/12/2018 [facility] Nitrogen), S mg/dL 1:21 PM [facility] [employer] [facility] Creatinine 1.32 0.74 - 12/12/2018 [facility] 1.35 mg/dL 1:21 PM [facility] eGFR-Non 53 (L) >=60 12/12/2018 [facility] Black/ mL/min/BSA 1:21 PM [facility] Comment: ----ADDITIONAL INFORMATION---- Estimated GFR calculated using the 2009 CKD_EPI creatinine equation. eGFR-Black/ 61 >=60 mL/min/BSA 2018 1:21 PM [facility]- [facility] Comment: ----ADDITIONAL INFORMATION---- Estimated GFR calculated using the 2009 CKD_EPI creatinine equation. Calcium, Total, S 9.5 8.8 - 10.2 mg/dL 12/12/2018 1 :21 PM CDT [facility] Glucose, S 139 70 - 140 mg/dL 12/12/2018 1:21 PM CDT [facility] Specimen Anatomical Collection Method Collection Time Receive d Time (Source) Location / / Volume Laterality Blood (Blood, 12/12/2018 8:54 AM 12/13/19 19 Venous) CDT 12:43 PM CDT Cathy Mccoy M.D. LAB BLOOD ADD-ON Performing Organization Address [facility]/ZIP Code Phon e Number [address] [place], [place] [phone] [facility] AST (Aspartate Aminotransferase) (12/12/2018 8:54 AM CDT) [facility] Method Time Signature Aspartate 32 8 - 48 12/12/2018 [facility] Aminotransferase U/L 1:21 PM CDT [facility] Specimen Anatomical Collection Method Collection Time Receive d Time (Source) Location / / Volume Laterality Blood (Blood, 12/12/2018 8:54 AM 12/13/19 19 Venous) CDT 12:43 PM CDT Cathy Mccoy M.D. LAB BLOOD ADD-ON Performing Organization Address [facility]/ZIP Code Phon e Number [facility]- [address] [place] [address] [place], [place] [address] [facility] documented in this encounter Visit Diagnoses Diagnosis Diabetes Mellitus Type 2 (HCC) - Primary Hyperlipidemia Hypertension Benign Renovascular documented in this encounter Care Teams Accounting Lecturer Relationship Specialty Start Date End Date Cathy Mccoy M.D. PCP - General 02/23/17 12/18/19 documented as of this encounter
--- OUTSIDE RECORDS SUMMARY | 2022-05-24 18:26 | XMS_ITS | Encounter Summary ---
:1945 Author Organization [facility] Address [address] [place] [address] Care Team Providers Name Role Phone Cathy Mccoy M.D. Primary Care Provider Unavailable Reason for Visit Reason Comments Med Refill Encounter Details Date Type Department Care Team Description 05/18/2018 Refill Department of Family Medicine Cathy Mccoy Med Refill in [facility] ynes [place] [address] [place] [address] Social History Tobacco Use [...] or relatives? How often do you attend spiritism or More than 4 times per year 06/14/2019 advent services? Do you belong to any clubs or Yes 06/14/2019 organizations such as spiritism groups, unions, fraternal or athletic groups, or [...] on filedocumented in this encounter Care Teams Final Finisher Forging Dies Relationship Specialty Start Date End Date Cathy Mccoy M.D. PCP - General 02/23/17 12/18/19 documented as of this encounter
--- OUTSIDE RECORDS SUMMARY | 2022-05-24 18:26 | XMS_ITS | Encounter Summary ---
:1945 Author Organization [facility] Address [address] [place] [address] Care Team Providers Name Role Phone Cathy Mccoy M.D. Primary Care Provider Unavailable Reason for Visit Reason Comments Med Refill Encounter Details Date Type Department Care Team Description 11/03/2018 Refill Department of Family Medicine Cathy Mccoy Med Refill in [facility] ynes [address] [place] [address] Social History Tobacco Use [...] More than 4 times per year 06/14/2019 restorationism services? Do you belong to any clubs [...] on filedocumented in this encounter Care Teams Pugger Helper Relationship Specialty Start Date End Date Cathy Mccoy M.D. PCP - General 02/23/17 12/18/19 documented as of this encounter
--- OUTSIDE RECORDS SUMMARY | 2022-05-24 18:26 | XMS_ITS | Encounter Summary ---
:1945 Author Organization [facility] Address [address] [place] [address] Care Team Providers Name Role Phone Cathy Mccoy M.D. Primary Care Provider Unavailable Reason for Visit Reason Comments Med Refill Encounter Details Date Type Department Care Team Description 11/08/2017 Refill Department of Gastroenterology in [place] M.D. Med Refill [place], [place] [address] [place], [place] [phone] Social History Tobacco Use Types Packs/Day Years [...] or relatives? How often do you attend yazdanism or More than 4 times per year 06/14/2019 orthodox services? Do you belong to any clubs or Yes 06/14/2019 organizations such as yazdanism groups, unions, fraternal or athletic groups, or [...] this encounter Miscellaneous Notes Telephone Encounter - KuClara castro L.P.N. - 11/08/2017 1:11 PM CATTERY OPERATOR PA requested ERY OPERATOR Telephone Encounter - Clara Pereira L.P.N. - 11/08/2017 10:01 AM CATTERY OPERATOR SAMANTHA: 03/30/2017 Next Ov: 03/29/2018 Please review and approve as appropriate. Thanks. ERY OPERATOR documented in this encounter Plan of Treatment Not on filedocumented as of this encounter Visit Diagnoses Not on filedocumented in this encounter Care Teams Puppy Sitter Relationship Specialty Start Date End Date Cathy Mccoy M.D. PCP - General 02/23/17 12/18/19 documented as of this encounter
--- OUTSIDE RECORDS SUMMARY | 2022-05-24 18:26 | XMS_ITS | Encounter Summary ---
:1945 Author Organization [facility] Address [address] [place] [address] Care Team Providers Name Role Phone Cathy Mccoy M.D. Primary Care Provider Unavailable Encounter Details Date Type Department Care Team Description 10/14/2017 Abstract Department of Family Medicine, Provider, Historical [facility], in [place] [address] [place] [address] Social History Tobacco Use Types Packs/Day Years [...] on filedocumented in this encounter Care Teams Computer Equipment Repairer Relationship Specialty Start Date End Date Cathy Mccoy M.D. PCP - General 02/23/17 12/18/19 documented as of this encounter
--- OUTSIDE RECORDS SUMMARY | 2022-05-24 18:26 | XMS_ITS | Encounter Summary ---
:1945 Author Organization [facility] Address [address] [place] [address] Care Team Providers Name Role Phone Cathy Mccoy M.D. Primary Care Provider Unavailable Reason for Visit Reason Comments Med Refill Encounter Details Date Type Department Care Team Description 05/26/2018 Refill Department of Family Medicine, Cathy Hull Med Refill [facility], in [place] [address] [phone] Social History Tobacco Use Types Packs/Day Years [...] or relatives? How often do you attend taoist or More than 4 times per year 06/14/2019 nondenominational services? Do you belong to any clubs or Yes 06/14/2019 organizations such as taoist groups, unions, fraternal or athletic groups, or [...] this encounter Miscellaneous Notes Telephone Encounter - Sarika Terry R.N. - 05/29/2018 7:02 AM CDT See message attached Telephone Encounter - Cathy Mccoy M.D. - 05/28/2018 9:22 PM CDT Please contact patient an have him make an appointment for 6 month diabetic check. Telephone Encounter - Sarika Terry R.N. - 05/28/2018 9:14 AM CDT Last ordered 11/29/17 Last visit - 10/18/17 Future visit - none documented in this encounter Plan of Treatment Not on filedocumented as of this encounter Visit Diagnoses Not on filedocumented in this encounter Care Teams Signal Technician Relationship Specialty Start Date End Date Cathy Mccoy M.D. PCP - General 02/23/17 12/18/19 documented as of this encounter
--- OUTSIDE RECORDS SUMMARY | 2022-05-24 18:26 | XMS_ITS | Encounter Summary ---
:1945 Author Organization [facility] Address [address] [place] [address] Care Team Providers Name Role Phone Cathy Mccoy M.D. Primary Care Provider Unavailable Encounter Details Date Type Department Care Team Description 12/12/2018 Hospital Encounter Department of [place], Hyperlip idemia; Laboratory Medicine [place] Hyperte nsion Benign Renovascular; in [place], Diabetes Barbra itus Type 2 (HCC) [place] [address] [place] [address] Social History Tobacco Use Types [...] More than 4 times per year 06/14/2019 hindu services? Do you belong to any clubs [...] daily. Use to 400 strip 3 09/06/2019 ([employer] Beverages[employer]OUCH ULTRA BLUE test 4-5 times a day [...] gauge x TWICE DAILY E11.9 01/24 syringe nhjrfq-vblocypb-kxjlyb Take 2 capsules by 180 capsule 11 [...] Diagnosis Comme nts LIPID PANEL, S Routine 12/12/2018 8:54 Hyperlipidemia Results for this AM CDT procedure are i n the results section. ASPARTATE Routine 12/12/2018 8:54 Hyperlipidemia Results fo r this AMINOTRANSFERASE (AST), AM CDT proc edure are in S/P the results section. HEMOGLOBIN A1C, B Routine 12/12/2018 8:54 Diabetes Mellitus Re sults for this AM CDT Type 2 (HCC) procedure are i n the results section. BASIC METABOLIC PANEL, Routine 12/12/2018 8:54 Hypertension Be nign Results for this S/P AM CDT Renovascular procedure are i n the results section. documented in this encounter Results (ABNORMAL) Hemoglobin A1c (12/12/2018 8:54 AM CDT) athologist Signature Hemoglobin A1c, 5.9 (H) 4.2 - 5.6 12/12/2018 [facility] B % 1:33 PM CDT [facility] Comment: Hemoglobin A1c values of 5.7-6.4 [...] Address City/State/ZIP Code Phon e Number [facility]- [address] [place] [address], [place] [address] [facility] (ABNORMAL) Lipid Panel (12/12/2018 8:54 AM CDT) athologist Signature Cholesterol, 113 mg/dL 12/12/2018 [facility] Total 1:21 PM CDT [facility] [facility] Comment: ----REFERENCE VALUE---- Desirable: < 200 Borderline high: 200 - 239 High: > or = 240 Triglycerides 109 mg/dL 12/12/2018 1:[address] [facility] Comment: ----REFERENCE VALUE---- Normal: <150 Borderline high: 150-199 High: 200-499 Very high: > or =500 Cholesterol, HDL, S 25 (L) >=40 mg/dL 12/12/2018 1:[address] [facility] Calculated LDL 66 mg/dL 12/12/2018 1:21 PM CDT [facility] Comment: ----REFERENCE VALUE---- Desirable: <100 Above Desirable: 100-129 Borderline high: 130-159 High: 160-189 Very high: > or =190 Cholesterol, Non-HDL, 88 mg/dL 12/12/2018 1:21 PM CDT [facility] Comment: ----REFERENCE VALUE---- Desirable: <130 Above Desirable: 130-159 Borderline high: 160-189 High: 190-219 Very high: > or =220 Specimen Anatomical Collection Method Collection Time Receive d Time (Source) Location / / Volume Laterality Blood (Blood, 12/12/2018 8:54 AM 12/13/19 19 Venous) CDT 12:43 PM CDT Cathy Mccoy M.D. LAB BLOOD ADD-ON Performing Organization Address City/State/ZIP Code Phon e Number [facility]- [address] [place] [phone] [facility] (ABNORMAL) BMP (Basic Metabolic Panel) (12/12/2018 8:54 AM CDT) P athologist Signature Potassium, S 5.0 3.6 - 5.2 12/12/2018 [facility] mmol/L 1:21 PM [facility] Sodium, S 142 135 - 145 12/12/2018 [facility] mmol/L 1:21 PM [facility] Chloride, S 108 (H) 98 - 107 12/12/2018 [facility] mmol/L 1:21 PM [facility] Bicarbonate, S 21 (L) 22 - 29 12/12/2018 [facility] mmol/L 1:21 PM [facility] Anion Gap 13 7 - 15 12/12/2018 [facility] 1:21 PM [facility] BUN (Blood Urea 31 (H) 8 - 24 12/12/2018 [facility] Nitrogen), S mg/dL 1:21 PM [facility] Creatinine 1.32 0.74 - 12/12/2018 [facility] 1.35 mg/dL 1:21 PM CDT [facility] [facility] eGFR-Non 53 (L) >=60 12/12/2018 [facility] Black/ mL/min/BSA 1:21 PM CDT [facility] [facility] Comment: ----ADDITIONAL INFORMATION---- Estimated GFR calculated using the 2009 CKD_EPI creatinine equation. eGFR-Black/ 61 >=60 mL/min/BSA 2018 1:[address] [facility] [facility] Comment: ----ADDITIONAL INFORMATION---- Estimated GFR calculated using the 2009 CKD_EPI creatinine equation. Calcium, Total, S 9.5 8.8 - 10.2 mg/dL 12/12/2018 1 :[address] [facility] Glucose, S 139 70 - 140 mg/dL 12/12/2018 1:[address] [facility] Specimen Anatomical Collection Method Collection Time Receive d Time (Source) Location / / Volume Laterality Blood (Blood, 12/12/2018 8:54 AM 12/13/19 Venous) CDT 12:43 PM CDT Cathy Mccoy M.D. LAB BLOOD ADD-ON Performing Organization Address [facility] Phon e Number [address] [phone] [facility] AST (Aspartate Aminotransferase) (12/12/2018 8:54 AM CDT) [facility] gist Method Time Signature Aspartate 32 8 - 48 12/12/2018 [facility] Aminotransferase U/L 1:21 PM CDT [facility] (AST), [employer] [facility]- [place] [facility] Specimen Anatomical Collection Method Collection Time Receive d Time (Source) Location / / Volume Laterality Blood (Blood, 12/12/2018 8:54 AM 12/13/19 19 Venous) CDT 12:43 PM CDT Cathy Mccoy M.D. LAB BLOOD ADD-ON Performing Organization Address City/[facility] Phon e Number [address] [phone] [facility] documented in this encounter Visit Diagnoses Diagnosis Hyperlipidemia Hypertension Benign Renovascular Diabetes Mellitus Type 2 (HCC) documented in this encounter Care Teams Assistant Finance Manager Relationship Specialty Start Date End Date Cathy Mccoy M.D. PCP - General 02/23/17 12/18/19 documented as of this encounter
--- OUTSIDE RECORDS SUMMARY | 2022-05-24 18:26 | XMS_ITS | Encounter Summary ---
:1945 Author Organization [facility] Address [address] [place] [address] Care Team Providers Name Role Phone Cathy Mccoy M.D. Primary Care Provider Unavailable Reason for Visit Reason Comments Med Refill Encounter Details Date Type Department Care Team Description 10/23/2018 Refill Department of Family Medicine Ofelia Franco, L.P.N. Med Refill in [address] [address] [place] [address] [phone] Social History Tobacco Use Types Packs/Day Years [...] More than 4 times per year 06/14/2019 zoroastrian services? Do you belong to any clubs [...] encounter Miscellaneous Notes Telephone Encounter - Ofelia Montelongo, L.P.N. - 10/23/2018 4:17 PM CERTIFIED REHABILITATION COUNSELOR Last visit with you 06/18/18. Pt using new pharmacy and needs med refills. IFIED REHABILITATION COUNSELOR documented in this encounter Plan of Treatment Not on filedocumented as of this encounter Visit Diagnoses Not on filedocumented in this encounter Care Teams Ship Boat Or Barge Mate Relationship Specialty Start Date End Date Cathy Mccoy M.D. PCP - General 02/23/17 12/18/19 documented as of this encounter
--- OUTSIDE RECORDS SUMMARY | 2022-05-24 18:26 | XMS_ITS | Encounter Summary ---
:1945 Author Organization [facility] Address [address] [place] [address] Care Team Providers Name Role Phone Cathy Mccoy M.D. Primary Care Provider Unavailable Encounter Details Date Type Department Care Team Description 01/17/2018 Orders Only Department of Family Loulou Gonzales Medicine in [place], [address] [place] [phone] [place] [address] [place] [address] Social History Tobacco Use [...] on filedocumented in this encounter Care Teams Branch Mechanic Relationship Specialty Start Date End Date Cathy Mccoy M.D. PCP - General 02/23/17 12/18/19 documented as of this encounter
--- OUTSIDE RECORDS SUMMARY | 2022-05-24 18:26 | XMS_ITS | Encounter Summary ---
:1945 Author Organization [facility] Address [address] [place] [address] Care Team Providers Name Role Phone Cathy Mccoy M.D. Primary Care Provider Unavailable Encounter Details Date Type Department Care Team Description 03/28/2019 Hospital Encounter Department of [place], Pancreat itis Chronic Laboratory Medicine, Evan ([facility]) Specialty Clinic, in [place], Ph.D. [address] [phone] [phone] Social History Tobacco Use Types Packs/Day Years [...] for the very basics like Not v crytsal hard 06/14/2019 food, housing, medical care, and [...] gauge x TWICE DAILY E11.9 01/24 syringe ntdybj-tfqdxydp-okccbp Take 2 capsules by 180 capsule 11 [...] Procedure Name Priority Date/Time Associated Comments Diagnosis CARBOHYDRATE AG 19-9 (CA Routine 03/28/2019 2:09 Pancreatitis Results for this 19-9), S PM CDT Chronic (HCC) procedure are in the results section. CBC WITH DIFFERENTIAL, B Routine 03/28/2019 2:09 Pancreatitis Results for this PM CDT Chronic (HCC) procedure are in the results section. VITAMIN B12 ASSAY, S Routine 03/28/2019 2:09 Pancreatitis Resu lts for this PM CDT Chronic (HCC) procedure are in the results section. CARCINOEMBRYONIC AG Routine 03/28/2019 2:09 Pancreatitis Resul ts for this (CEA), S PM CDT Chronic (HCC) procedure are in the results section. COMPREHENSIVE METABOLIC Routine 03/28/2019 2:09 Pancreatitis R esults for this PANEL, S/P PM CDT Chronic (HCC) procedure are in the results section. documented in this encounter Results CEA (Carcinoembryonic Antigen) (03/28/2019 2:09 PM CDT) [facility] Method Time Signature Carcinoembryonic Ag 4.3 ng/mL 03/28/2019 (CEA), S 3:23 PM CDT Comment: Biotin has been identified by the [facility] as a potential interfering substance. ??Higher concentr ations of biotin may be found in multivitamins, hair/nail supple ments, and workout supplements. ??If the result does not ma [facility] clinical observations, repeat testing after patient refrains [...] / / Volume Laterality Blood (Blood, 03/28/2019 2:09 PM 03/28/20 19 2:17 Venous) CDT PM CDT Zaid-Hsi Zapata M.D., Ph.D. LAB BLOOD ADD-ON Performing Organization Address City/State/ZIP Code Phon e Number [facility] [address] [place] [address] LAB Carbohydrate Antigen 19-9 (CA 19-9) (03/28/2019 2:09 PM CDT) P athologist Signature Carbohydrate Ag 10 <35 U/mL 03/29/2019 19-9, S 10:51 AM CDT Comment: ----ADDITIONAL INFORMATION---- The testing method is an immunoenzymatic assay manufactured by [employer]. and performed on the [employer] DxI 800. ? Values obtained with different assay met hods or kits may be different and cannot be used inte rchangeably. ? Test results cannot be interpreted as ab solute evidence for the presence or absence of malignant disease. Specimen Anatomical Collection Method Collection Time Receive d Time (Source) Location / / Volume Laterality Blood (Blood, 03/28/2019 2:09 PM 03/29/20 9:18 Venous) CDT AM CDT Evan Zapata M.D., Ph.D. LAB BLOOD ADD-ON Performing Organization Address City/[facility]/ZIP Code Phon e Number [facility] [address] [address] [place], [place] [address] [place] [address] CENTER Vitamin B12 Assay (03/28/2019 2:09 PM CDT) athologist Signature Vitamin B12 390 236 - 8138 03/28/2019 Assay, S ng/L 3:32 PM CDT Comment: Biotin has been identified by the [facility] as a potential interfering substance. ??Higher concentr ations of biotin may be found in multivitamins, hair/nail supple ments, and workout supplements. ??If the result does not ma the [facility] clinical observations, repeat testing after patient refrains fr om the use of supplements for at least 12 hours. Specimen Anatomical Collection Method Collection Time Receive d Time (Source) Location / / Volume Laterality Blood (Blood, 03/28/2019 2:09 PM 03/28/20 19 2:17 Venous) CDT PM CDT Evan Zapata M.D., Ph.D. LAB BLOOD ADD-ON Performing Organization Address City/State/ZIP Code Phon e Number [place] [id number] [place] [address] LAB (ABNORMAL) Comprehensive Metabolic Panel (03/28/2019 2:09 PM CDT) Analysis Performed At Patho logist Time Signature Potassium, S 6.0 (CH) 3.6 - 5.2 03/28/2019 mmol/L 3:25 PM CDT Sodium, S 138 135 - 145 03/28/2019 mmol/L 3:15 PM CDT Chloride, S 105 98 - 107 03/28/2019 mmol/L 3:15 PM CDT Bicarbonate, S 23 22 - 29 03/28/2019 mmol/L 3:15 PM CDT Anion Gap 10 7 - 15 03/28/2019 3:15 PM CDT BUN (Blood Urea 34 (H) 8 - 24 03/28/2019 Nitrogen), S mg/dL 3:15 PM CDT Creatinine 1.48 (H) 0.74 - 03/28/2019 1.35 mg/dL 3:15 PM CDT eGFR-Non 46 (L) >=60 03/28/2019 Black/ mL/min/BSA 3:15 PM CDT Maltese Comment: ----ADDITIONAL INFORMATION---- Estimated GFR calculated using the 2009 CKD_EPI creatinine equation. eGFR-Black/ 53 (L) >=60 mL/min/BSA 2018 3:15 PM CDT Comment: ----ADDITIONAL INFORMATION---- Estimated GFR calculated using the 2009 CKD_EPI creatinine equation. Calcium, Total, S 9.2 8.8 - 10.2 mg/dL 03/28/2019 3:15 PM CDT Glucose, S 331 (H) 70 - 140 mg/dL 03/28/2019 3:15 PM CDT Protein, Total, S 6.5 6.3 - 7.9 g/dL 03/28/2019 3:15 P M CDT Albumin, S 4.1 3.5 - 5.0 g/dL 03/28/2019 3:15 PM CDT Aspartate Aminotransferase 31 8 - 48 U/L 03/28/2019 3 :15 PM CDT (AST), S Alkaline Phosphatase, S 105 40 - 129 U/L 03/28/2019 3: 15 PM CDT Alanine Aminotransferase (ALT), 29 7 - 55 U/L 019 3:15 PM CDT S Bilirubin, Total, S 0.4 <=1.2 mg/dL 03/28/2019 3:15 PM CDT Specimen Anatomical Collection Method Collection Time Receive d Time (Source) Location / / Volume Laterality Blood (Blood, 03/28/2019 2:09 PM 03/28/20 19 2:17 Venous) CDT PM CDT Evan Zapata M.D., Ph.D. LAB BLOOD ADD-ON Performing Organization Address City/State/ZIP Code Phon e Number [address] [address] LAB (ABNORMAL) CBC with Differential, Blood (03/28/2019 2:09 PM CDT) [facility] Method Time Signature Hemoglobin 14.8 13.2 - 03/28/2019 16.6 g/dL 2:21 PM CDT Hematocrit 45.5 38.3 - 03/28/2019 48.6 % 2:21 PM CDT Erythrocytes 4.25 (L) 4.35 - 03/28/2019 5.65 2:21 PM CDT x10(12)/L MCV 107.1 (H) 78.2 - 03/28/2019 97.9 fL 2:21 PM CDT RBC Distrib Width 12.7 11.8 - 03/28/2019 14.5 % 2:21 PM CDT Platelet Count 167 135 - 317 03/28/2019 x10(9)/L 2:21 PM CDT Leukocytes 5.8 3.4 - 9.6 03/28/2019 x10(9)/L 2:21 PM CDT Neutrophils 3.82 1.56 - 03/28/2019 6.45 2:21 PM CDT x10(9)/L Lymphocytes 1.42 0.95 - 03/28/2019 3.07 2:21 PM CDT x10(9)/L Monocytes 0.47 0.26 - 03/28/2019 0.81 2:21 PM CDT x10(9)/L Eosinophils 0.08 0.03 - 03/28/2019 0.48 2:21 PM CDT x10(9)/L Basophils 0.04 0.01 - 03/28/2019 0.08 2:21 PM CDT x10(9)/L Specimen Anatomical Collection Method Collection Time Receive d Time (Source) Location / / Volume Laterality Blood (Blood, 03/28/2019 2:09 PM 03/28/20 19 2:17 Venous) CDT PM CDT Evan Zapata M.D., Ph.D. LAB BLOOD ADD-ON Performing Organization Address City/State/[facility] [place] [address] LAB documented in this encounter Visit Diagnoses Diagnosis Pancreatitis Chronic (HCC) documented in this encounter Care Teams Coal Tower Operator Relationship Specialty Start Date End Date Cathy Mccoy M.D. PCP - General 02/23/17 12/18/19 documented as of this encounter
--- OUTSIDE RECORDS SUMMARY | 2022-05-24 18:26 | XMS_ITS | Encounter Summary ---
:1945 Author Organization [facility] Address [address] [place] [address] Care Team Providers Name Role Phone Cathy Mccoy M.D. Primary Care Provider Unavailable Encounter Details Date Type Department Care Team Description 10/01/2018 Clinical Communication Department of Kedar Ellison, Gastroenterology in [place] [address] [phone] Social History Tobacco Use Types Packs/Day [...] on filedocumented in this encounter Care Teams Welding Machine Tender Relationship Specialty Start Date End Date Cathy Mccoy M.D. PCP - General 02/23/17 12/18/19 documented as of this encounter
--- OUTSIDE RECORDS SUMMARY | 2022-05-24 18:26 | XMS_ITS | Encounter Summary ---
:1945 Author Organization [facility] Address [address] [place] [address] Care Team Providers Name Role Phone Nikia Mccoy M.D. Primary Care Provider Unavailable Reason for Visit Reason Comments Suspicious Skin Lesion Lt upper leg. Encounter Details Date Type Department Care Team Description 06/18/2018 Office Visit Department of Family Nadine, Lesion Skin Leg Medicine in [place] (Primary Dx) [facility] a [address] [place] [address] Social History Tobacco Use Types [...] or relatives? How often do you attend mu-ism or More than 4 times per year 06/14/2019 judaism services? Do you belong to any clubs or Yes 06/14/2019 organizations such as mu-ism groups, unions, fraternal or athletic groups, or [...] Sign Reading Time Taken Comments Blood Pressure 110/60 06/18/2018 7:59 AM CDT Pulse 62 06/18/2018 7:59 AM CDT Temperature 36.9 ??C (98.4 ??F) 06/18/2018 7:59 AM CDT Respiratory Rate 16 06/18/2018 7:59 AM CDT Oxygen Saturation - - Inhaled Oxygen Concentration - - Weight 111 kg (245 lb 9.5 oz) 06/18/2018 7:59 AM CDT Height 191 cm (6' 3.2) 06/18/2018 7:59 AM CDT Body Mass Index 30.54 06/18/2018 7:59 AM CDT documented in this encounter Progress Notes Nikia Mccoy M.D. - 06/18/2018 8:00 AM CDT SUBJECTIVE CHIEF COMPLAINT/REASON FOR VISIT Chief Complaint Patient presents with ??? Suspicious Skin Lesion Lt upper leg. HISTORY OF PRESENT ILLNESS Jorge Chance is a 73 y.o. male who presents for biopsy of a lesion on his left upper thigh anterior. REVIEW OF SYSTEMS Review of systems was [...] Outpatient Prescriptions Medication Sig Dispense Refill ??? ADACEL,TDAP ADOLESN/ADULT,,PF, vaccine ??? albuterol (for_PROVENTIL HFA,VENTOLIN HFA) 90 mcg/actuation [...] month). 20 mL 3 ??? FLUZONE HIGH-DOSE , PF, vaccine INJECT [...] TWICE DAILY E11.9 200 each 3 ??? djeagy-insbvkbp-ukydxea (CREON) 24,000-76,000-120,000 Unit per capsule Take 2 capsules by mouth 3 (three) times a day. 180 capsule 11 ??? lisinopril (for_PRINIVIL,ZESTRIL) 5 mg tablet Take 1 tablet (5 mg total) by mouth daily. 90 tablet 3 ??? metFORMIN XR (GLUCOPHAGE-XR) 500 mg 24 hr tablet Take 1 tablet (500 mg total) by mouth daily. 90tablet 1 ??? metoprolol tartrate (LOPRESSOR) 25 mg tablet [...] by mouth daily. 30 capsule 11 ??? FLUZONE HIGH-DOSE , PF, vaccine INJECT 0.5ML ANNUALLY 0 OBJECTIVE VITAL SIGNS BP 110/60 (BP Location: Left arm, Patient Position: Sitting, Cuff Size: Regular) Pulse 62 Temp 36.9 ??C (Temporal) Resp 16 Ht 191 cm Wt 111.4 kg BMI 30.54 kg/m?? PHYSICAL EXAMINATION General: The patient is in no apparent distress and is alert and oriented. Mood and affect normal. Patient is very pleasant. Skin: 2 small lesions in close proximity that are brown. Together about 4 mm by 2 mm . ASSESSMENT / PLAN #1 Lesion Skin Leg See procedure note. Sample sent for pathology. - Lesion Biopsy - Surgical Pathology ADMINISTRATIVE BILLING Total time spent 10 minutes, 7 minutes spent in counseling and coordination of care. Nikia Mccoy M.D. - 06/18/2018 8:00 AM CDT Gave patient results and told him this was a benign lesion. documented in this encounter Procedure Notes Nikia Mccoy M.D. - 06/18/2018 8:00 AM CDTAssociated Order(s): LESION BIOPSY Post-Procedure Diagnose(s): Lesion Skin Leg Lesion Biopsy Date/Time: 06/18/2018 8:09 AM Performed by: NIKIA MCCOY Authorized by: NIKIA MCCOY Consent: Consent obtained: Verbal Consent given by: Patient The benefits, risks and alternatives to the procedure and the potential need for sedation or anesthesia as well as the names, roles, and responsibilities of healthcare team members performing significant interventional tasks were discussed with the patient and/or decision maker.: Yes The benefits, risks and alternatives to the possible need for blood products were discussed with the patient and/or decision maker.: Not addressed Keota protocol: All relevant documentation and testing were reviewed and available. All required blood products, implants, devices and/or special equipment were made available as applicable. The pre-procedure verification was conducted, the correct site was marked if required, and the procedural time out was conducted prior to performing the procedure and confirmed in a procedural pause.: Yes Pre-procedure details: Procedure purpose: Diagnostic Indications: Abnormal skin lesion Appropriate hand hygiene, gown, cap, mask, protective eyewear, sterile gloves, skin preparation, sterile drape, and strict aseptic technique were utilized as applicable for the procedure.: Yes Site preparation: Alcohol Sedation/Anesthesia (see MAR for exact dosages): Anesthesia method: Local Local infiltrate: Lidocaine with epi Total anesthetic volume: <1 mL Procedure details: Type of biopsy: Shave Number of lesions: 1 Lesion Number 1: Location on body: Left lower extremity Lower extremity: Thigh, anterior. Size of lesion: 4 mm Size of final defect: 4 mm Wound closure / hemostasis: Hemostasis Hemostasis: Electrocautery Specimen sent for pathology: Yes Photo taken: No Post-procedure details: Estimated blood loss: Minimal Procedure completed successfully: Yes Complications: No apparent complications Tolerance: Well tolerated Comments: Dressed with bacitracin and bandaid documented in this encounter Plan of Treatment Not on filedocumented as of this encounter Procedures Procedure Name Priority Date/Time Associated Diagnosis Comme nts SURGICAL PATHOLOGY Routine 06/18/2018 8:32 AM Lesion Skin Leg Results for this CDT procedure are i n the results section. IN BX SKIN/SUBQ Routine 06/18/2018 8:00 AM Lesion Skin Leg Res ults for this TISS 1ST LESION CDT procedure ar e in the results section. documented in this encounter Results Surgical Pathology (06/18/2018 8:32 AM CDT) Component Value Ref Test Analysis Performed At [facility] Method Time Signature Report Rl Rush 06/20/2018 [facility] electronically MD Blas 10:27 AM HEALTH signed by Fashion Genome ProjectT Quote Roller [email or web address] [email or web address] 06/20/2018 [facility] 10:27 AM HEALTH [facility] Specimen Received A. Skin shave biopsy, Left anterior thigh- x2 sha ve 06/20/2018 [facility] biopsies 10:27 AM HEALTH CDT [facility] Clinical History Disorder of the 06/20/2018 [facility] skin and 10:27 AM HEALTH subcutaneous CDT SYSTEM- tissue [facility] Gross Description Received are skin fragments to a 6 mm greatest di mension. 06/20/2018 [facility] ESB, one cassette. ?? ddg/dms 10:27 AM HEALTH [facility] Interpretation Skin, left 06/20/2018 [facility] anterior thigh: 10:27 AM HEALTH Seborrheic CDT SYSTEM- keratosis. [facility] Specimen Anatomical Collection Method Collection Time Receive d Time (Source) Location / / Volume Laterality Varies 06/18/2018 8:32 AM 8 1:50 CDT PM CDT Narrative This result has an attachment that is no t available. Nikia Mccoy M.D. LAB SURG PATH ORDERABLES Performing Organization Address City/State/[place] Code Phon e Number [facility] [address] [place] [address] LAB IN BX SKIN/SUBQ TISS 1ST LESION (06/18/2018 8:00 AM CDT) Narrative [facility] - 06/18/2018 8:00 AM CDT Nikia Mccoy M.D. ? 06/18/2018 ??8:39 AM Lesion Biopsy Date/Time: 06/18/2018 8:09 AM Performed by: NIKIA MCCOY Authorized by: NIKIA MCCOY Consent: ??Consent obtained: ??Verbal ??Consent given by: ??Patient ??The benefits, risks and alternatives to the procedure and the potential need for sedation or anesthesia as well as the names, roles, and responsibilities of healthcare team memb ers performing significant interventional tasks were discussed with the patient and/or decision maker.: Yes ?The benefits, risks and alternatives to the possible need for blood products were discussed with the patient and/or decision maker.: ??Not addressed Keota protocol: ??All relevant documentation and testin g were reviewed and available. All required blood products, implants, devic es and/or special equipment were made available as applicable. The pre-pr ocedure verification was conducted, the correct site was marked i f required, and the procedural time out was conducted prior to performi ng the procedure and confirmed in a procedural pause.: Yes ?? Pre-procedure details: ??Procedure purpose: ??Diagnostic ??Indications: ??Abnormal skin lesion ??Appropriate hand hygiene, gown, cap, mask, protective eyewear, sterile gloves, skin preparation, sterile drape, and strict aseptic technique were utilized as applicable for the procedure .: Yes ?Site preparation: ??Alcohol Sedation/Anesthesia (see MAR for exact d osages): ??Anesthesia method: ??Local ??Local infiltrate: ??Lidocaine with ep i ??Total anesthetic volume: ??<1 mL Procedure details: ??Type of biopsy: Shave ?Number of lesions: ??1 Lesion Number 1: ??Location on body: ??Left lower extrem ity ? Lower extremity: ??Thigh, anterio r. ??Size of lesion: ??4 mm ??Size of final defect: ??4 mm ??Wound closure / hemostasis: ??Hemosta sis ??Hemostasis: ??Electrocautery ??Specimen sent for pathology: ??Yes ??Photo taken: ??No Post-procedure details: ??Estimated blood loss: ??Minimal ??Procedure completed successfully: Yes ?Complications: No apparent complicati ons ?Tolerance: ??Well tolerated Comments: ??Dressed with bacitracin and bandaid Nikia Mccoy M.D. PROCEDURE/MINOR SURGICAL ORD ERABLES Performing Organization Address City/State/ZIP Code Phon e Number [facility] NA documented in this encounter Visit Diagnoses Diagnosis Lesion Skin Leg - Primary documented in this encounter Care Teams Automatic Winder Operator Relationship Specialty Start Date End Date Nikia Mccoy M.D. PCP - General 02/23/17 12/18/19 documented as of this encounter
--- OUTSIDE RECORDS SUMMARY | 2022-05-24 18:26 | XMS_ITS | Encounter Summary ---
:1945 Author Organization [facility] Address [address] [place] [address] Care Team Providers Name Role Phone Cathy Mccoy M.D. Primary Care Provider Unavailable Reason for Visit Reason Comments Med Refill Encounter Details Date Type Department Care Team Description 07/09/2018 Refill Department of Orthopedic Surgery María Ochoa L.P.N. Med Refill in [place] [address] [place] [address] Social History Tobacco Use Types Packs/Day Years [...] on filedocumented in this encounter Care Teams Pneumatic Tool Repairer Relationship Specialty Start Date End Date Cathy Mccoy M.D. PCP - General 02/23/17 12/18/19 documented as of this encounter
--- OUTSIDE RECORDS SUMMARY | 2022-05-24 18:26 | XMS_ITS | Encounter Summary ---
:1945 Author Organization [facility] Address [address] [place] [address] Care Team Providers Name Role Phone Cathy Mccoy M.D. Primary Care Provider Unavailable Reason for Visit Reason Comments Med Refill Encounter Details Date Type Department Care Team Description 09/02/2018 Refill Department of Family Medicine, Cathy Hull Med Refill [facility], in [place] [address] [phone] Social History Tobacco Use Types Packs/Day Years [...] Telephone Encounter - Malka Horton R.N. - 09/03/2018 10:50 AM CST Las seen 06/18/18 Last filled 09/01/17 TAIN SERVER documented in this encounter Plan of Treatment Not on filedocumented as of this encounter Visit Diagnoses Not on filedocumented in this encounter Care Teams Canvas Goods Maker Relationship Specialty Start Date End Date Cathy Mccoy M.D. PCP - General 02/23/17 12/18/19 documented as of this encounter
--- OUTSIDE RECORDS SUMMARY | 2022-05-24 18:26 | XMS_ITS | Encounter Summary ---
:1945 Author Organization [facility] Address [address] [place] [address] Care Team Providers Name Role Phone Cathy Mccoy M.D. Primary Care Provider Unavailable Reason for Referral Outpatient (Routine) - Closed Specialty Diagnoses / Referred By Contact Referred To Procedures Contact Gastroenterology and Evan Zapata, [facility] Hepatology MJewels, Ph.D. [address] [place] [phone] Referral ID Status Reason Start Date Expiration Date Visits Requ ested Visits Authorized [id number] Closed 03/28/2019 03/27/2020 1 1 MRI/CAT/PET Scan (Routine) - Closed Specialty Diagnoses / Procedures Referred By Contact Refer red To Contact Radiology Diagnoses Pancreatitis Chronic (HCC) Evan Zapata M.D., [facility] Procedures MR Abdomen MRCP without and with IV Contrast HI MRI ABDOMEN WO/W CNTRST HC MRI ABDOMEN WO/W CNTRST HI MRI ABDOMEN WO/W CNTRST Ph.D. [address] [place] [phone] Referral ID Status Reason Start Date Expiration Date Visits Requ ested Visits Authorized [id number] Closed 03/28/2019 03/27/2020 1 1 Reason for Visit Reason Comments Pancreatitis Chronic Outpatient (Routine) - Closed Specialty Diagnoses / Referred By Contact Referred To Procedures Contact Gastroenterology and Diagnoses Pancreatitis Chronic (HCC) Kedar Ellison M.D. [facility] Hepatology [address] [place] [address] Referral ID Status Reason Start Date Expiration Date Visits Requ ested Visits Authorized [id number] Closed 03/29/2018 03/29/2019 1 1 Encounter Details Date Type Department Care Team Description 03/28/2019 Office Visit Department of Zapata, Pancreatitis C hronic Gastroenterology in [facility], (HCC) [place], [place] Junior, Ph.D. [address] [facility] [address] [place] [address] [place], [place] [phone] Social History Tobacco Use Types Packs/Day [...] More than 4 times per year 06/14/2019 yarsanism services? Do you belong to any clubs [...] Sign Reading Time Taken Comments Blood Pressure 118/62 03/28/2019 12:47 PM CDT Pulse 72 03/28/2019 12:47 PM CDT Temperature 36.6 ??C (97.9 ??F) 03/28/2019 12:47 PM CDT Respiratory Rate 20 03/28/2019 12:47 PM CDT Oxygen Saturation - - Inhaled Oxygen Concentration - - Weight 113 kg (249 lb 9 oz) 03/28/2019 12:47 PM CDT Height 191 cm (6' 3.2) 03/28/2019 12:47 PM CDT Body Mass Index 31.03 03/28/2019 12:47 PM CDT documented in this encounter H&P Notes Evan Zapata M.D., Ph.D. - 03/28/2019 1:00 PM CDT CHIEF COMPLAINT/REASON FOR CONSULT Fu chronic pancreatitis SUBJECTIVE HISTORY OF PRESENT ILLNESS Mr. Chance is a 74 y/o Male (seen Dr Ellison 03/2018) and comes as FU of chronic pancreatitis for 5-6 years. He is in use of Creon (2 pills TID) with okay control of BMs with sometimes loose stool and abdominal bloating. ?? 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 Hx chronic pancreatitis (burn-out total calcified); ??BMI: 31; (113 kgs) ?? MEDs: creon (2 pills TID), vit E, NITRO, iNSULIN, ALLOPURINOL, LOPID, METFORMIN, LISINOPRIL, Metoprolol, albuterol, Ibuprofen, Bismuth FH: denied CRC; mother -brain tumor; uncle some kind of cancer; SMK (-); alcohol (-) ?? 03/29/2018 - CBC ok, MCV 104 HIGH - 12/2018 - bun 31, CRE 1.32; SUGAR 139; A1C 5.9 - 03/2018 LFT wnl; CA 19-9 wnl; ?? 07/16/2013 EGD ?? PREOPERATIVE DIAGNOSIS: ??Chronic diarrhea and weight loss. ? POSTOPERATIVE DIAGNOSIS: ??H. Pylori gastritis. ?? 07/2013 C-scope - Colonic diverticulosis. ?? MRI/MRCP 08/2015 IMPRESSION: 1. Unchanged [...] chronic ductal obstruction. 2. Diffuse hepatic steatosis. ? - 01/2016 CT abdomen/pel IMPRESSION: 1. Normal-appearing appendix. 2. No acute intra-abdominal/pelvic pathology. 3. Other stable incidental nonacute findings as described above. ??FINDINGS: Lung bases: No acute airspace opacity in the bilateral bases. Coronary artery and thoracic aortic atherosclerotic changes again observed, stable. ??Abdomen and pelvis: Normal-appearing appendix in the right lower quadrant on image 48 through 52 of series 2. There is no free intraperitoneal air, free fluid, fluid collection, or abscess. Mild aortoiliac atherosclerotic changes are observed. Unchanged rounded low attenuating renal cortical structures bilaterally that are too small to characterize but statistically most likely to represent simple cysts. Pancreatic calcifications proximally and atrophy of the pancreas throughout are stable. The liver, spleen, adrenal glands, and gallbladder are unremarkable. ??Bones: No lytic or blastic bone lesions are identified. The following portions of the patient's history were reviewed and updated as appropriate: allergies,current medications, family history, medical history, social history, surgical history, systems review and problem list. Review of Systems Skin: Negative for skin rash. Gastrointestinal: Positive for diarrhea. Negative for abdominal (belly) pain or cramping, blood in stool, nausea and vomiting. The following systems were negative: Constitutional, ENT, CV, Respiratory, , Hematologic, Musculoskeletal Past Medical History: Diagnosis Date ??? Arrest Cardiac (HCC) ??? Coronary Artery Disease (Unspecified) ??? Diabetes Mellitus NOS ??? History Of Falling ??? Hyperlipidemia ??? Hypertension NOS ??? Infection Helicobacter Pylori ??? Myocardial Infarction Acute (HCC) ??? Pancreatitis Chronic (HCC) ??? Proteinuria ??? Skin Cancer (Primary) NOS Past Surgical History: Procedure Laterality Date ??? MOUTH SURGERY ??? OSTECTOMY OF CALCANEUS FOR SPUR N/A 02/23/2007 Excision of calcaneal spur ??? PLACEMENT OF STENT IN CARDIAC CONDUIT 2006 Current Outpatient Medications: ??? albuterol (for_PROVENTIL HFA,VENTOLIN HFA) 90 mcg/actuation inhaler, Inhale 2 puffs every 4 (four) hours as needed., Disp: , Rfl: ??? allopurinol (ZYLOPRIM) 100 mg tablet, Take 1 tablet (100 mg total) by mouth 2 (two) times a day., Disp: 180 tablet, Rfl: 2 ??? blood sugar diagnostic ([employer]Ag[employer].comUCH ULTRA BLUE TEST STRIP) strips, 5 test daily. Use to test 4-5 times a day E11.9, Disp: 400 strip, Rfl: 3 ??? diphenhydrAMINE (for_BENADRYL) 25 mg tablet, Take 25 mg by mouth as needed., Disp: , Rfl: ??? DOCOSAHEXANOIC ACID/EPA (FISH OIL ORAL), Take 1 capsule by mouth 3 (three) times a day., Disp: ,Rfl: ??? EPINEPHrine (for_EPIPEN) 0.3 mg/0.3 mL injection syringe, Inject 0.3 mg intramuscularly once., Disp: , Rfl: ??? fluocinonide (for_LIDEX) 0.05 % external solution, Apply 1 application topically as needed for rash (5-6 x month)., Disp: 20 mL, Rfl: 3 ??? FLUZONE HIGH-DOSE 2017-, PF, vaccine, INJECT 0.5ML ANNUALLY, Disp: , Rfl: 0 ??? gemfibrozil (LOPID) 600 mg tablet, Take 1 tablet (600 mg total) by mouth 2 (two) times a day., Disp: 180 tablet, Rfl: 2 ??? HUMALOG MIX 75-25,U-100,INSULN 100 unit/mL (75-25) injection, INJECT 0.9 ML (90 UNITS) UNDER THESKIN TWICE A DAY, Disp: 60 mL, Rfl: 4 ??? ibuprofen (for_ADVIL,MOTRIN) 200 mg tablet, Take 2 tablets by mouth every 4 (four) hours as needed., Disp: , Rfl: ??? insulin syringe-needle U-100 1 mL 31 gauge x 5/16 syringe, USE TO INJECT INSULIN TWICE DAILY E11.9, Disp: 200 each, Rfl: 3 ??? gytneq-dlzvdrtu-pqlwonm (CREON) 24,000-76,000-120,000 Unit per capsule, Take 2 capsules by mouth3 (three) times a day., Disp: 180 capsule, Rfl: 11 ??? lisinopril (PRINIVIL,ZESTRIL) 5 mg tablet, TAKE 1 TABLET (5 MG TOTAL) BY MOUTH DAILY., Disp: 90 tablet, Rfl: 3 ??? metFORMIN XR (GLUCOPHAGE-XR) 500 mg 24 hr tablet, Take 1 tablet (500 mg total) by mouth daily., Disp: 90 tablet, Rfl: 2 ??? metoprolol tartrate (LOPRESSOR) 25 mg tablet, Take 0.5 tablets (12.5 mg total) by mouth 2 (two) times a day., Disp: 90 tablet, Rfl: 3 ??? nitroglycerin (NITROSTAT) 0.4 mg SL tablet, Place 1 tablet (0.4 mg total) under the tongue every5 (five) minutes as needed for chest pain., Disp: 25 tablet, Rfl: 0 ??? phenylephrine (for_NEO-SYNEPHRINE) 0.5 % nasal spray, phenylephrine 0.5% nasal spray as needed for allergies, Disp: , Rfl: ??? SIMETHICONE ORAL, 80 mg as needed., Disp: , Rfl: ??? sodium chloride 3 % mist, Administer 2 sprays into each nostril 4 (four) times a day as needed.,Disp: , Rfl: ??? vitamin E 400 unit capsule, Take 1 capsule (400 Units total) by mouth daily., Disp: 30 capsule, Rfl: 11 ??? ADACEL,TDAP ADOLESN/ADULT,,PF, vaccine, , Disp: , Rfl: ??? benzocaine 10 % liquid, Apply 1 application topically 4 (four) times a day., Disp: , Rfl: ??? BISMUTH SUBSALICYLATE ORAL, Take by mouth as needed., Disp: , Rfl: ??? FLUZONE HIGH-DOSE , PF, vaccine, INJECT 0.5ML ANNUALLY, Disp: , Rfl: 0 Allergies Allergen Reactions ??? Adhesive Tape-Silicones Rash ??? Aspirin Other (see comments) Nosebleed ??? Atorvastatin Other (see comments) Chest pain ??? Bee Venom Protein (Honey Bee) Other (see comments) ??? Clindamycin Other (see comments) ??? Penicillin Shortness of breath Hives Family History Problem Relation Age of Onset ??? Cataracts Brother ??? Diabetes Brother ??? Brain Tumor Mother ??? Diabetes Brother ??? Cataracts Brother ??? Coronary artery disease Brother ??? Pacemaker care Brother ??? Stroke Brother ??? Diabetes Sister ??? ORQUIDEA disease Sister ??? Diabetes Brother ??? Cataracts Brother ??? Glaucoma Brother ??? Urolithiasis Brother ??? Diabetes Brother Vitals: 03/28/19 1247 BP: 118/62 Pulse: 72 Resp: 20 Temp: 36.6 ??C OBJECTIVE PHYSICAL EXAM Vital signs: Recorded and reviewed. General: Alert and oriented, no acute distress. Head: Normocephalic, atraumatic. Eyes: Anicteric sclera. Mouth/Throat: Clear. Neck: Supple. No jugular venous distention. Cardiac: Regular rate. Normal peripheral perfusion. Lungs: Non-labored respirations. Symmetrical expansion. Abdomen: Soft and nontender with normoactive bowel sounds. Musculoskeletal: Normal range of motion, no deformity. Integumentary: Warm and dry. No characteristic lesions on exposed surfaces. Neurologic: No relevant focal deficits. Psychiatric: Cooperative, appropriate mood and affect. ASSESSMENT / PLAN IMPRESSIONS 1. Chronic (atrophic) pancreatitis (remote alcoholics hx) [...] abx in 2012; hx of colonic diverticulosis; RECOMMENDATIONS I reviewed the above in detail with the patient, who expressed an understanding of the overall concepts and plans. I attempted to answer all questions and review risks and benefits of various diagnostic and treatment alternatives. Any positive findings noted within the review of systems not addressed in this evaluation should be followed by the patient's primary medical team. We decided to proceed as follows: 1. CBC, CMP, B12, CA 19-9, CEA; 2. MRI/MRCP to assess chronic pancreatitis and assess if pancreas cancer high rish patient; pt has claustrophobia and may use oral Ativan (1mg/tab) 1-2 tab before MRI exam. 3. For the noticed high K 6.0, with elevated creatinine 1.45, I have informed patient to come to ED for urgent assessment; likely need recheck the lab, ECG, if confirm high, will let ED team to manage accordingly for hyperkalemia; 4. my office contact info is provided to pt for follow and up and further question or concern later on; informed patient about the availability of future communicating/updating through [facility] patient portal; Clinic follow up in 3 months. This note was prepared, in part, with voice recognition software. Although it was reviewed for content, some grammatical errors and misspellings may persist. Electronically signed by: Evan Zapata M.D., Ph.D. 03/28/2019 12:57 PM documented in this encounter Plan of Treatment Scheduled Referrals Name Type Priority Associated Order Schedule Diagnoses Gastroenterology and Outpatient Routine Expecte d: Hepatology office visit Referral 06/11 (clinic) (Approximate), Expires: 03/28/2022 documented as of this encounter Results MR Abdomen MRCP without [...] biliary ductal dilatation. Evan Zapata M.D., Ph.D. [facility] MRI PROCEDURES CEA (Carcinoembryonic Antigen) (03/28/2019 2:09 PM CDT) [facility] Method Time Signature Carcinoembryonic Ag 4.3 ng/mL 03/28/2019 (CEA), S 3:23 PM CDT Comment: Biotin has been identified by the murphy cturer as a potential interfering substance. ??Higher concentr ations of biotin may be found in multivitamins, hair/nail supple ments, and workout supplements. ??If the result does not [facility] clinical observations, repeat testing after patient [...] Ph.D. LAB BLOOD ADD-ON Performing Organization Address City/[facility] Phon e Number [facility] [address] [place] [phone] LAB Carbohydrate Antigen 19-9 (CA 19-9) (03/28/2019 2:09 PM CDT) athologist Signature Carbohydrate Ag 10 <35 U/mL 03/29/2019 19-9, S 10:51 AM CDT Comment: ----ADDITIONAL INFORMATION---- The testing method is an immunoenzymatic assay manufactured by [employer] and performed on the [employer] DxI 800. ? Values obtained with different assay met hods or kits may be different and cannot be used inte rchangeably. ? Test results cannot be interpreted as ab solute evidence for the presence or absence of malignant disease. Specimen Anatomical Collection Method Collection Time Receive d Time (Source) Location / / Volume Laterality Blood (Blood, 03/28/2019 2:09 PM 03/29/20 19 9:18 Venous) CDT AM CDT Evan Zapata M.D., Ph.D. LAB BLOOD ADD-ON Performing Organization Address City/[facility] Phon e Number [facility] [address] [place], [place] [address] [facility] Vitamin B12 Assay (03/28/2019 2:09 PM CDT) athologist Signature Vitamin B12 390 131 - 1246 03/28/2019 Assay, S ng/L 3:32 PM CDT Comment: Biotin has been identified by the murphy whitney as a potential interfering substance. ??Higher concentr ations of biotin may be found in multivitamins, hair/nail supple ments, and workout supplements. ??If the result does not [facility] clinical observations, repeat testing after patient refrains fr om the use of supplements for at least 12 hours. Specimen Anatomical Collection Method Collection Time Receive d Time (Source) Location / / Volume Laterality Blood (Blood, 03/28/2019 2:09 PM 03/28/20 19 2:17 Venous) CDT PM CDT Evan Zapata M.D., Ph.D. LAB BLOOD ADD-ON Performing Organization Address City/State/[facility] [place] [place] [address] LAB (ABNORMAL) Comprehensive Metabolic Panel (03/28/2019 2:09 [...] >=60 03/28/2019 Black/ mL/min/BSA 3:15 PM CDT Tongan Comment: ----ADDITIONAL INFORMATION---- Estimated GFR calculated using [...] Organization Address City/State/[place] [address] LAB (ABNORMAL) CBC with Differential, Blood (03/28/2019 2:09 PM CDT) [facility] Method Time Signature Hemoglobin 14.8 13.2 [...] Ph.D. LAB BLOOD ADD-ON Performing Organization Address City/State/[facility] Phon e Number [address] [address] LAB documented in this encounter Visit Diagnoses Diagnosis Pancreatitis Chronic (HCC) Pancreatitis Chronic (HCC) documented in this encounter Care Teams Marine Structural Welder Relationship Specialty Start Date End Date Cathy Mccoy M.D. PCP - General 02/23/17 12/18/19 documented as of this encounter
--- OUTSIDE RECORDS SUMMARY | 2022-05-24 18:27 | XMS_ITS | Encounter Summary ---
:1945 Author Organization [facility] Address [address] [place] [address] Care Team Providers Name Role Phone Unavailable Primary Care Provider Unavailable Encounter Details Date Type Department Care Team Description 01/29/2016 Hospital Encounter HX [facility] Shasta Patel M.D. Social History Tobacco Use Types Packs/Day Years Used Date Smoking Tobacco: Never Assessed Alcohol Habits Answer Date Recorded How often [...] More than 4 times per year 06/14/2019 gnosticist services? Do you belong to any clubs [...] End Date DOCOSAHEXANOIC Take 1 capsule by mouth 0 06/13/20 13 ACID/EPA (FISH OIL 3 (three) times a day. ORAL) When remembers EPINEPHrine Inject 0.3 mg 0 06/30/2014 (for_EPIPEN) 0.3 intramuscularly once. mg/0.3 mL injection syringe phenylephrine phenylephrine 0.5% 0 08/23/2013 (for_NEO-SYNEPHRINE) nasal spray as needed 0.5 % nasal spray for allergies SIMETHICONE ORAL 80 mg as needed. 0 11/11/2013 sodium chloride 3 % Administer 2 sprays 0 013 mist into each nostril 4 (four) times a day as needed. BISMUTH SUBSALICYLATE Take by mouth as 0 03/13/20 09 04/01/2019 ORAL needed. fluocinonide Apply 1 application 0 12/02/201503/2018 (for_LIDEX) 0.05 % topically as needed. external solution documented as of this encounter Miscellaneous Notes Miscellaneous - Conversion, Historical Provider Ser - 01/29/2016 11:59 PM CDT Coding Summary-Paper Based CODING DATE: 02/01/2016 [facility] * Discharged to Home or Self Care PAYOR: Medicare Advantage ADMIT DX: REASON FOR VISIT DX: FINAL DX: PRINCIPAL: N28.1 Cyst of kidney, acquired SECONDARY: K86.8 Other specified diseases of pancreas PROCEDURES DOCTOR NAME DATE NOTE: The code number assigned matches the documented diagnosis and / or procedure in the patient's chart. However, the narrative phrase printed from the coding software may appear abbreviated, or result in slightly different terminology. Coded By: KERRY RODRIGUEZ Date Saved: 02/01/2016 08:41 am Source: [facility] [employer] [place] Document Id: [id number] Miscellaneous - Nikia Mccoy M.D. - 01/29/2016 8:25 PM CDT From: NIKIA MCCOY MD Sent: 01/29/2016 20:25:37 CDT gave results. abdominal pain likely ;musculoskeletal Source: [facility] [employer] [place] Document Id: [id number] Electronically signed by Conversion, [facility]inder [id number] at 02/04/2017 2:40 PM CDT documented in this encounter Plan of Treatment Not on filedocumented as of this encounter Procedures Procedure Name Priority Date/Time Associated Diagnosis Comme nts CT ABDOMEN KIDNEY Routine 01/29/2016 9:39 AM Resu lts for this STONE WITHOUT IV CDT procedure a re in CONTRAST the results section. documented in this encounter Results CT Abdomen Kidney Stone without IV Contrast (01/29/2016 9:39 AM CDT) Anatomical Region Laterality Modality Abdomen, Pelvis Computed Tomography Specimen (Source) Anatomical Collection Method Collection Time Re ceived Time Location / / Volume Laterality 01/29/2016 9:39 AM CDT Addenda Addendum by Provider, Junior Worthington 01/29/2016 9:39 AM CDT RAD^^^MA CT Stone Protocol 01/29/2016 09:39:04 Addendum by Provider, Junior Worthington 01/29/2016 9:30 AM CDT RAD^^^MA CT Stone Protocol 01/29/2016 09:30:00 Impressions 01/29/2016 10:22 AM CDT 1. No renal, ureteral, or urinary bladde r stone. No hydroureteronephrosis bilaterally. 2. Normal-appearing appendix. 3. No acute intra-abdominal/pelvic patho logy. Other incidental nonacute findings as described above. Narrative 01/29/2016 10:22 AM CDT History: 70 year - old male with right l ower quadrant abdominal pain Comparison: 01/25/2016. Technique: Noncontrast 1.[address] slices were obtained from the lung bases through the symphysis pubis. Coronal images were reconstructed from source images. FINDINGS: Lung bases: The lung bases and pleural s paces are clear of airspace disease. There are coronary artery and t horacic aortic atherosclerotic changes observed. Abdomen and pelvis: There is a normal-ap pearing appendix on image 50 through 53 of series 2. There is no shasha l, ureteral, or urinary bladder stone observed. There is no hydr oureteronephrosis bilaterally. Rounded water attenuating s imple cysts are observed in both kidneys, stable. There is no free i ntraperitoneal air, free fluid, fluid collection, or abscess. Gonzales creatic calcifications and atrophy of the pancreas, stable. There a re colonic diverticula without pericolonic fat stranding. Aorto iliac atherosclerotic changes, stable. Bones: No lytic or blastic bone lesions are identified. Procedure Note Riki Perez M.D. / Provider, Leela orta M.D. - 01/13/2017 History: 70 year - old male with right l ower quadrant abdominal pain Comparison: 01/25/2016. Technique: Noncontrast 1.[address] slices were obtained from the lung bases through the symphysis pubis. Coronal images were reconstructed from source images. FINDINGS: Lung bases: The lung bases and pleural s paces are clear of airspace disease. There are coronary artery and t horacic aortic atherosclerotic changes observed. Abdomen and pelvis: There is a normal-ap pearing appendix on image 50 through 53 of series 2. There is no shasha l, ureteral, or urinary bladder stone observed. There is no hydr oureteronephrosis bilaterally. Rounded water attenuating s imple cysts are observed in both kidneys, stable. There is no free i ntraperitoneal air, free fluid, fluid collection, or abscess. Gonzales creatic calcifications and atrophy of the pancreas, stable. There a re colonic diverticula without pericolonic fat stranding. Aorto iliac atherosclerotic changes, stable. Bones: No lytic or blastic bone lesions are identified. IMPRESSION: 1. No renal, ureteral, or urinary bladde r stone. No hydroureteronephrosis bilaterally. 2. Normal-appearing appendix. 3. No acute intra-abdominal/pelvic patho logy. Other incidental nonacute findings as described above. Shanna Lazar(R)(CT), R.TKamila(R)(M) IMG CT PROCE DURES documented in this encounter Visit Diagnoses Not on filedocumented in this encounter
--- OUTSIDE RECORDS SUMMARY | 2022-05-24 18:27 | XMS_ITS | Encounter Summary ---
:1945 Author Organization [facility] Address [address] [place] [address] Care Team Providers Name Role Phone Unavailable Primary Care Provider Unavailable Encounter Details Date Type Department Care Team Description 12/01/2015 Hospital Encounter HX [facility] Tammy Davis M.D. Social History Tobacco Use Types Packs/Day [...] as 0 03/13/20 09 04/01/2019 ORAL needed. documented as of this encounter Miscellaneous Notes Miscellaneous - Nikia Mccoy M.D. - 12/02/2015 2:23 PM CDT From: NIKIA MCCOY MD Sent: 12/02/2015 14:23:46 CDT gave results at cecile't Source: [facility] POWERCHART Document Id: [id number] Electronically signed by Conversion, [facility] Special Systems Technician [id number] at 02/04/2017 3:50 PM CDT documented in this encounter Plan of Treatment Not on filedocumented as of this encounter Procedures Procedure Name Priority Date/Time Associated Diagnosis Comme nts ALBUMIN, RANDOM, U Routine 12/01/2015 8:51 AM Res ults for this CDT procedure are i n the results section. documented in this encounter Results (ABNORMAL) Microalbumin, Random, Urine (12/01/2015 8:51 AM CDT) athologist Signature HXU Albumin % 178.0 MGL POWERCHART Creatinine, 103 40 - 278 POWERCHART Random, U MGDL Comment: No established reference values for random urine samples. Albumin/Creatinine Ratio 173 (H) <=16 MGGM POWER CHART Specimen (Source) Anatomical Collection Method Collection Time Re ceived Time Location / / Volume Laterality Urine 12/01/2015 8:51 AM CDT Nikia Mccoy M.D. LAB URINE ORDERABLES Performing Organization Address City/State/ZIP Code Phon e Number POWERCHART documented in this encounter Visit Diagnoses Not on filedocumented in this encounter
--- OUTSIDE RECORDS SUMMARY | 2022-05-24 18:27 | XMS_ITS | Encounter Summary ---
:1945 Author Organization [facility] Address [address] [place] [address] Care Team Providers Name Role Phone Cathy Mccoy M.D. Primary Care Provider Unavailable Reason for Visit Reason Comments Med Refill Encounter Details Date Type Department Care Team Description 08/31/2017 Refill Department of Family Medicine, Brenda Saba L.P.NKamila Med Refill [facility] [place], in [place] [address] [place] [address] Social History Tobacco Use Types Packs/Day Years [...] or relatives? How often do you attend scientology or More than 4 times per year 06/14/2019 sikhism services? Do you belong to any clubs or Yes 06/14/2019 organizations such as scientology groups, unions, fraternal or athletic groups, or [...] on filedocumented in this encounter Care Teams Slurry Blender Relationship Specialty Start Date End Date Cathy Mccoy M.D. PCP - General 02/23/17 12/18/19 documented as of this encounter
--- OUTSIDE RECORDS SUMMARY | 2022-05-24 18:27 | XMS_ITS | Encounter Summary ---
:1945 Author Organization [facility] Address [address] [place] [address] Care Team Providers Name Role Phone Unavailable Primary Care Provider Unavailable Encounter Details Date Type Department Care Team Description 01/27/2016 Hospital Encounter HX [facility] Cathy Rosenthal M.D. Social History Tobacco Use Types Packs/Day [...] Sign Reading Time Taken Comments Blood Pressure 114/72 01/27/2016 1:55 PM CDT Pulse 64 01/27/2016 1:55 PM CDT Temperature - - Respiratory Rate 20 01/27/2016 1:55 PM CDT Oxygen Saturation - - Inhaled Oxygen Concentration - - Weight 115 kg (253 lb 1.4 oz) 01/27/2016 1:55 PM CDT Height 174 cm (5' 8.5) 01/27/2016 1:55 PM CDT Body Mass Index 37.92 01/27/2016 1:55 PM CDT documented in this encounter Medications [...] external solution documented as of this encounter Progress Notes Cathy Mccoy M.D. - 01/27/2016 1:52 PM CDT FM-LE CHIEF COMPLAINT/REASON FOR VISIT He was having right lower quadrant abdominal pain and went to the emergency room and was evaluated with a CT on 01/25/2016. They really did not find anything even though he does have a history of chronic pancreatic insufficiency; besides that is in the wrong place for which he is having the pain, which is in the right lower quadrant. He is afraid he had an appendix going, but they did not see any signs of inflammation. He does say he fell 1-1/2 weeks ago, tripped and fell and landed on his right shoulder, but he did not have the pain right away. He did have a colonoscopy 2 years ago. He winces whenhe gets out of bed or stands up. He started having the pain a week ago, Monday, pretty much staying t he same. It is not associated with eating. He does say he gets a twinge in his back when he turns tothe right. PAST MEDICAL/SURGICAL HISTORY Acute myocardial infarction with cardiac arrest. Arterial stent, Coronary artery disease. Diabetes. Gout. Hypertension. Hyperlipidemia. Helicobacter pylori. Chronic pancreatitis. Proteinuria. Skin cancer. Colonoscopy in 2007. Excision of a calcaneal spur, 2006. Gastroscopy/colonoscopy in July 2013. SOCIAL HISTORY He is a smoker. Drinks coffee daily. FAMILY HISTORY Mother had a brain tumor. Three brothers had cataracts. One brother had heart disease. Four brothersand a sister have diabetes. Sister has GERD. Brother has glaucoma. brother has kidney stones. Brother has pacemaker and another brother had stroke. MEDICATIONS Albuterol metered-dose inhaler. Allopurinol 100 mg twice a day. Creon 36,000 units 2 caps 3 times a day with a meal. EpiPen as needed. Fish oil 1000 mg 3 times a day. Gas-X 80 mg as needed. Gemfibrozil 600 mg 1 tab twice a day. Humalog 75-25, 70 mg in the a.m. and p.m. Hatley 5/325 was given to him in the emergency room for his pain. Lidex shampoo. Lisinopril 5 mg. Metformin 500 mg extended release 1 tab daily. Metoprolol 25 mg half tab twice a day. Nitroglycerin as needed. Pepto-Bismol as needed. Phenylephrine 0.5% nasal spray as needed. Saline nasal spray. ALLERGIES ADHESIVE BANDAGE. ASPIRIN. BEE STINGS. CLINDAMYCIN. LIPITOR. PENICILLIN. SYSTEMS REVIEW Pertinent review of systems in HPI. Remainder negative. VITAL SIGNS Blood pressure 114/72, pulse 64, respirations 20, temp 36.7, weight 114.8 kg, height 179 cm. PHYSICAL EXAMINATION CHEST: Clear to auscultation bilaterally. CARDIOVASCULAR: Regular rate and rhythm. No murmur. No CVA tenderness. No spinous or paraspinous tenderness to percussion. SKIN: No rash noted. ABDOMEN: His abdomen is soft. Positive bowel sounds. Tender in the right mid to lower quadrant. He does have some guarding. No rebound. No hernia noted on his abdomen. No inguinal hernia noted. EXTREMITIES: Right hip is nontender to log roll, internal or external rotation. IMPRESSION/REPORT/PLAN Right abdominal pain, lower quadrant. PLAN: The original CT was done with contrast, so if he has got a kidney stone that would have been hidden, but he does not have a whole lot of blood in his urine. We are going to just make sure there is no problem with the kidneys, doing a repeat CT with stone protocol. We did mention that it could be musculoskeletal and possibly even from the fall. If so, it should improve over time. He should continue taking pain medications as needed. ADMINISTRATIVE BILLING Total time spent was 25 minutes, with 20 minutes in counseling and coordination of care. Cathy Mccoy M.D./pos Electronically Signed By: CATHY MCCOY MD On: 02/02/2016 05:02 PM Modified by and Electronically Signed by: CATHY MCCOY MD On: 02/02/2016 05:02 PM Source: [facility] [id number] Document Id: [id number] documented in this encounter Consult Notes Eula Radford Pharm.D., R.Ph. - 03/08/2016 11:22 AM CDT Pharmacy Clinical Interventions Pharmacy Clinical Interventions Entered On: 03/08/2016 11:24 CDT Performed On: 03/08/2016 11:22 CDT by EULA RADFORDD Clinical Interventions Intervention Status : Completed Intervention Task Status : Completed Pharmacist Intervention Time : 11-15 Minutes Intervention Type Pharmacy : Other: statin recommendation from [facility] Prescriber Response Pharmacy : Accepted Pharmacy Prescribing Physician : CATHY MCCOY MD Pharmacy Additional Information : Patient's pharmacy, [facility], faxed a recommendation for patient to start a statin medicaiton. Chart review completed. Patient has a documented intolerance to statins and cholesterol is well- controlled on gemfibrozil. Faxed form to [phone]. EULA RADFORD PharmD - 03/08/2016 11:22 CDT Source: [facility] POWERCHART Document Id: [id number] documented in this encounter Nursing Notes Cathy Mccoy M.D. - 01/27/2016 2:37 PM CDT Ambulatory Patient Education The following Patient Education Materials have been given to the patient: Patient Education Materials: ED/Trauma Abdominal Pain, Adult ED/Trauma Abdominal Pain Abdominal pain is pain in the stomach or intestinal area. Everyone has this pain from time to time. In many cases it goes away on its own. But abdominal pain can sometimes be due to a serious problem, such as appendicitis. So its important to know when to seek help. Causes of abdominal pain There are many possible causes of abdominal pain. Common causes in adults include: ?? Constipation, diarrhea, or gas ?? GERD (movement of stomach acid into the esophagus, also known as acid reflux or heartburn) ?? Peptic ulcer (a sore in the lining of the stomach or small intestine) ?? Inflammation of the gallbladder or pancreas ?? Gallstones or kidney stones ?? Hernia (bulging of an internal organ through a muscle or other tissue) ?? Urinary tract infections ?? In women, menstrual cramps, fibroids, or endometriosis of the uterus ?? Inflammation or infection of the intestines Diagnosing the cause of abdominal pain Your health care provider will examine you to help find the cause of your pain. If needed, tests will be ordered. Because abdominal pain has so many possible causes, it can be hard to discover the reason for the pain. Giving details about your pain can help. Be ready to tell your health care provider where and when you feel the pain and what makes it better or worse. Also mention whether you have other symptoms such as fever, tiredness, nausea, vomiting, or changes in bathroom habits. Treating abdominal pain Certain causes of pain, such as appendicitis or a bowel obstruction, need emergency treatment. Otherproblems can be treated with rest, fluids, or medications. Your health care provider can give you specific instructions for treatment or self-care based on the cause of your pain. If you are have vomiting or diarrhea, sip water or other clear fluids. When you are ready to eat solid foods again, start with small amounts of [id number]-np-[id number], low-fat foods, such as applesauce, toast,or crackers. When to call the doctor Call 911 or go to the hospital right away if you: ?? Cant pass stool and are vomiting ?? Are vomiting blood or have black tarry diarrhea ?? Also have chest, neck, or shoulder pain ?? Feel like you are about to pass out ?? Have pain in your shoulder blades with nausea ?? Have sudden, excruciating abdominal pain ?? Have new, severe pain unlike any you have felt before ?? Have a belly that is rigid, hard, and tender to touch Call your doctor if you have: ?? Pain for more than 5 days ?? Bloating for more than 2 days ?? Diarrhea for more than 5 days ?? Fever of 101??F or higher ?? Pain that continues to worsen ?? Unexplained weight loss ?? Continued lack of appetite ?? Blood in the stool How to prevent abdominal pain Here are some tips to help prevent abdominal pain: ?? Eat smaller amounts of food at one time. ?? Avoid greasy, fried, or other high-fat foods. ?? Avoid foods that give you gas. ?? Exercise regularly. ?? Drink plenty of fluids. To help prevent symptoms of gastroesophageal reflux (GERD): ?? Quit smoking. ?? Lose excess weight. ?? Finish eating at least 2 hours before you go to bed or lie down. ?? Elevate the head of your bed. ?? [id number] [place] [address]. All rights reserved. This information is not intended as a substitute for professional medical care. Always follow your healthcare professional's instructions. Source: [facility] POWERCHART Document Id: [id number] documented in this encounter Miscellaneous Notes Miscellaneous - Samira Silva - 02/19/2016 11:[address] MCCOY-RX Document Contains Addenda Addendum by TERRA VYAS RN on February 19, 2016 11:16:01 CDT done From: SAMIRA SILVA To: SAGE Wise Nurse; Sent: 02/19/2016 11:13:45 CDT Subject: DR MCCOY-RX If you need a prescription refill please call your pharmacy. Please allow 3 business days for processing. Call Center Template: ?? May we leave a message for you on this phone? ?? What can I help you with today?Needs syringes short needle insulin for U100 insulin-would like bytoday if possible, Dr Mccoy is gone ?? If Medication Refill: o What is the medication? o What pharmacy do you use?[facility] o Have you contacted your pharmacy regarding this request? I will send this information to the appropriate staff member who will look into your concern. Someone will call you back within 4 business hours.. Thank you for calling [facility]. Source: [facility] POWERCHART Document Id: [id number] Electronically signed by Conversion, [facility] Cartographic Drafter [id number] at 02/04/2017 2:40 PM CDT Miscellaneous - Cathy Mccoy M.D. - 01/27/2016 2:37 PM CDT Ambulatory Patient Summary [facility] - [address] [id number] Visit Information Name: A[facility] Number: [id number] Current Date: 01/27/2016 14:37:56 Physicians Attending Provider: CATHY MCCOY MD Primary Care Provider: CATHY MCCOY MD [facility] has been given the following list of follow-up instructions, medication list, and patient education materials: Follow-up Instructions Your Medications Here is a list of your medications. It is important to take your medications as directed. Use a pillbox or chart to help remind you to take your medications. Please let your doctor or nurse know if you have problems taking your medications. Medication/Strength How to Take Indications/Special Instructions/Comments/Notes for Patient Medication Changes/Routing albuterol (albuterol CFC free 90 mcg/inh inhalation aerosol) 2 puff(s), Inhalation, every 4 hours asneeded for Shortness of Breath allergic triggered asthma allopurinol (allopurinol 100 mg oral tablet) 1 Tablet(s), Oral, two times a day bismuth subsalicylate (Pepto-Bismol) Oral, as needed upset stomach EPINEPHrine (EpiPen 2-Yves 0.3 mg injectable kit) 0.3 mg, Intramuscular, once fluocinonide topical (Lidex 0.05% topical solution) 1 cecile, Topical, two times a day gemfibrozil (gemfibrozil 600 mg oral tablet) 1 Tablet(s), Oral, two times a day HYDROcodone-acetaminophen (HYDROcodone-acetaminophen 5 mg-325 mg oral tablet) 1 to 2 tablets, Oral, every 6 hours as needed for Pain No more than 4,000mg acetaminophen/24hrs This is a CHANGE Routed to Printer insulin lispro protamine-insulin lispro (HumaLOG Mix 75/25 subcutaneous suspension) See [id number] am and 70 pm E11.9 lisinopril (lisinopril 5 mg oral tablet) 1 Tablet(s), Oral, once a day metFORMIN (metFORMIN 500 mg oral tablet, extended release) 1 Tablet(s), Oral, once a day metoprolol (metoprolol 25 mg oral tablet) 0.5 Tablet(s), Oral, two times a day nitroglycerin (nitroglycerin 0.4 mg sublingual tablet) 1 Tablet(s), Sublingual, as needed as needed for Chest Pain omega-3 polyunsaturated fatty acids (Fish Oil 1000 mg oral capsule) 1 cap, Oral, three times a day pancrelipase (Creon 36,000 units oral delayed release capsule) 2 cap, Oral, three times a day phenylephrine nasal (phenylephrine 0.5% nasal spray) as needed for allergies polyethylene glycol 3350 (MiraLax oral powder for reconstitution) 1 packet(s), Oral, once a day Contents of 1 packet dissolved in 4-8oz of water, juice, soda, coffee, or tea simethicone (Gas-X) 80 mg, , as needed sodium chloride nasal (Saline Nasal Mist nasal spray) 2 Greig(s), Nostrils(Both), four times a day as needed for Dry nasal passages Stop Taking the Following Medications: Medication list as of 01-27-16 14:37 Attention: If you have any medications at home that are not on this list, DO NOT take them until youcontact your provider for clarification. Give a copy of your medication list to your primary care provider. Update your medication list any time medications or doses are changed and carry your medication list at all times in case of emergency. Electronically Signed By: CATHY MCCOY MD Signed On:27-JAN-2016 14:37:25 Your Allergies & Intolerances Substance Reaction Symptoms Category Comments clindamycin Drug penicillin Hives Drug penicillin SOB - Shortness of breath Drug aspirin Nosebleeds Drug Lipitor Chest Pain:Pressure/Tightness Drug Adhesive Bandage Rash Drug Bee Stings Environment Your Problem List Problem Status Onset Comments Diabetes mellitus without mention of complication, type II or unspecified type, not stated as uncontrolled Active Coronary artery disease-unsp. type vessel Active HTN [Hypertension] Active Hyperlipidemia Active Gout Active Cardiac Arrest Active Acute Myocardial Infarction Active 10/12/2005 Arterial stent Active Family history of cancer Active Family history of coronary artery disease Active Family history of sleep apnea Active Family History of Diabetes Mellitus Active Family history of glaucoma Active Family history of cataract Active Family history of renal stone Active Skin cancer Active Chronic pancreatitis NOS Active 07/16/2013 Helicobacter Pylori [h. Pylori] Infection in Conditions Classified Elsewhere and of Unspecified SiteActive 07/24/2013 Proteinuria Active Your Upcoming Appointments Date Time Location Provider 04/11/2016 09:00 [facility] 04/12/2016 09:00 [facility] Cathy Payton MD 08/09/2016 12:45 [facility] Efrain Ellison MD Attention: Contact your local Clinic if further appointment detail needed. Abdominal Pain Abdominal pain is pain in the stomach or intestinal area. Everyone has this pain from time to time. In many cases it goes away on its own. But abdominal pain can sometimes be due to a serious problem, such as appendicitis. So its important to know when to seek help. Causes of abdominal pain There are many possible causes of abdominal pain. Common causes in adults include: ?? Constipation, diarrhea, or gas ?? GERD (movement of stomach acid into the esophagus, also known as acid reflux or heartburn) ?? Peptic ulcer (a sore in the lining of the stomach or small intestine) ?? Inflammation of the gallbladder or pancreas ?? Gallstones or kidney stones ?? Hernia (bulging of an internal organ through a muscle or other tissue) ?? Urinary tract infections ?? In women, menstrual cramps, fibroids, or endometriosis of the uterus ?? Inflammation or infection of the intestines Diagnosing the cause of abdominal pain Your health care provider will examine you to help find the cause of your pain. If needed, tests will be ordered. Because abdominal pain has so many possible causes, it can be hard to discover the reason for the pain. Giving details about your pain can help. Be ready to tell your health care provider where and when you feel the pain and what makes it better or worse. Also mention whether you have other symptoms such as fever, tiredness, nausea, vomiting, or changes in bathroom habits. Treating abdominal pain Certain causes of pain, such as appendicitis or a bowel obstruction, need emergency treatment. Otherproblems can be treated with rest, fluids, or medications. Your health care provider can give you specific instructions for treatment or self-care based on the cause of your pain. If you are have vomiting or diarrhea, sip water or other clear fluids. When you are ready to eat solid foods again, start with small amounts of [id number]-[id number], low-fat foods, such as applesauce, toast,or crackers. When to call the doctor Call 911 or go to the hospital right away if you: ?? Cant pass stool and are vomiting ?? Are vomiting blood or have black tarry diarrhea ?? Also have chest, neck, or shoulder pain ?? Feel like you are about to pass out ?? Have pain in your shoulder blades with nausea ?? Have sudden, excruciating abdominal pain ?? Have new, severe pain unlike any you have felt before ?? Have a belly that is rigid, hard, and tender to touch Call your doctor if you have: ?? Pain for more than 5 days ?? Bloating for more than 2 days ?? Diarrhea for more than 5 days ?? Fever of 101?F or higher ?? Pain that continues to worsen ?? Unexplained weight loss ?? Continued lack of appetite ?? Blood in the stool How to prevent abdominal pain Here are some tips to help prevent abdominal pain: ?? Eat smaller amounts of food at one time. ?? Avoid greasy, fried, or other high-fat foods. ?? Avoid foods that give you gas. ?? Exercise regularly. ?? Drink plenty of fluids. To help prevent symptoms of gastroesophageal reflux (GERD): ?? Quit smoking. ?? Lose excess weight. ?? Finish eating at least 2 hours before you go to bed or lie down. ?? Elevate the head of your bed. ?? [id number] Saul Ruelas, [address] [place] [address]. All rights reserved. This information is not intended as a substitute for professional medical care. Always follow your healthcare professional's instructions. Consider Using Patient Online [employer] Patient [employer] is a secure online and Mobile application that lets you: ?? View lab and test results ?? View portions of your medical record including clinical notes, immunizations and discharge summaries ?? Request an appointment or medication refill ?? Review your appointment schedule ?? Send secure messages to your care team Its easy to create an account if you dont have one. Go to [email or web address] and click on Create Your Account. Then, follow the directions to complete the online form. Youll be asked for your [facility] number which you can find at the top of this document. Your Goals/Additional instructions: Source: [facility] POWERCHART Document Id: [id number] Miscellaneous - Cathy Mccoy M.D. - 01/27/2016 2:37 PM CDT Ambulatory Discharge Medication List [facility] [address] [place] [id number] Visit Information Name: AVE [facility] Number: [id number] Visit Date: 01/27/2016 14:37:54 Attending Provider: CATHY MCCOY MD Primary Care Provider: CATHY MCCOY MD [facility] has been given the following list of medications: Your Medications It is important to take your medications as directed. Use a pill box or chart to help remind you to take your medications. Please let your doctor or nurse know if you have problems taking your medications. Medication/Strength How to Take Indications/Special Instructions/Comments/Notes for Patient Medication Changes/Routing albuterol (albuterol CFC free 90 mcg/inh inhalation aerosol) 2 puff(s), Inhalation, every 4 hours asneeded for Shortness of Breath allergic triggered asthma allopurinol (allopurinol 100 mg oral tablet) 1 Tablet(s), Oral, two times a day bismuth subsalicylate (Pepto-Bismol) Oral, as needed upset stomach EPINEPHrine (EpiPen 2-Yves 0.3 mg injectable kit) 0.3 mg, Intramuscular, once fluocinonide topical (Lidex 0.05% topical solution) 1 cecile, Topical, two times a day gemfibrozil (gemfibrozil 600 mg oral tablet) 1 Tablet(s), Oral, two times a day HYDROcodone-acetaminophen (HYDROcodone-acetaminophen 5 mg-325 mg oral tablet) 1 to 2 tablets, Oral, every 6 hours as needed for Pain No more than 4,000mg acetaminophen/24hrs This is a CHANGE Routed to Printer insulin lispro protamine-insulin lispro (HumaLOG Mix 75/25 subcutaneous suspension) See [id number] am and 70 pm E11.9 lisinopril (lisinopril 5 mg oral tablet) 1 Tablet(s), Oral, once a day metFORMIN (metFORMIN 500 mg oral tablet, extended release) 1 Tablet(s), Oral, once a day metoprolol (metoprolol 25 mg oral tablet) 0.5 Tablet(s), Oral, two times a day nitroglycerin (nitroglycerin 0.4 mg sublingual tablet) 1 Tablet(s), Sublingual, as needed as needed for Chest Pain omega-3 polyunsaturated fatty acids (Fish Oil 1000 mg oral capsule) 1 cap, Oral, three times a day pancrelipase (Creon 36,000 units oral delayed release capsule) 2 cap, Oral, three times a day phenylephrine nasal (phenylephrine 0.5% nasal spray) as needed for allergies polyethylene glycol 3350 (MiraLax oral powder for reconstitution) 1 packet(s), Oral, once a day Contents of 1 packet dissolved in 4-8oz of water, juice, soda, coffee, or tea simethicone (Gas-X) 80 mg, , as needed sodium chloride nasal (Saline Nasal Mist nasal spray) 2 Greig(s), Nostrils(Both), four times a day as needed for Dry nasal passages Stop Taking the Following Medications: Medication list as of 01-27-16 14:37 Attention: If you have any medications at home that are not on this list, DO NOT take them until youcontact your provider for clarification. Give a copy of your medication list to your primary care provider. Update your medication list any time medications or doses are changed and carry your medication list at all times in case of emergency. Electronically Signed By: CATHY MCCOY MD Signed On:27-JAN-2016 14:37:25 Additional Information: Yes - . Source: [facility] POWERCHART Document Id: [id number] Miscellaneous - Shirin Weeks L.P.N. - 01/27/2016 1:55 PM CDT Adult Customer Service Advisor Intake/History Adult Customer Service Advisor Intake/History Entered On: 01/27/2016 14:00 CDT Performed On: 01/27/2016 13:55 CDT by SHIRIN WEEKS LPN Intake Chief Complaint : still having right lower quadrant pain Temperature Core : 36.7 DegC(Converted to: 98.1 DegF) Peripheral Pulse Rate : 64 /min Respiratory Rate : 20 /min Heart Rhythm : Regular Systolic Blood Pressure : 114 mmHg Diastolic Blood Pressure : 72 mmHg NIBP Mean : 86 mmHg BP Location : Left upper extremity Blood Pressure Cuff Size : Large Height : 174 cm(Converted to: 5 ft 9 inch(es), 69 inch(es)) Actual Weight : 114.8 kg(Converted to: 253 lb 1 oz) Weight Source : Standing scale Dosing Weight Clinic : 114.8 kg Clinic BSA : 2.36 Body Mass Index : 37.92 kg/m2 SHIRIN WEEKS LPN - 01/27/2016 13:55 CDT General Info Information Given By : Patient, Spouse Preferred Communication Mode : Verbal Languages : Bel[place]ian Is Patient Female and 13-50 no hysterectomy : No SHIRIN WEEKS LPN - 01/27/2016 13:55 CDT Subjective Pain Symptoms : Yes SHIRIN WEEKS LPN - 01/27/2016 13:55 CDT Pain Scale Pain Scale Verbal 0-10 : Open SHIRIN WEEKS LPN - 01/27/2016 13:55 CDT Pain Pain Assessment Grid Pain 1 Location : Other: right lower quadrant pain Intensity : 6 Aggravating Factors : Other: twisting SHIRIN WEEKS MYNOR KIMBERLY - 01/27/2016 13:55 CDT Dependent Habits Exposure to Tobacco Smoke : Other: non smoker Smoking Status : Never smoker Tobacco 2A : No Tobacco Use/Currently Using : No Tobacco Use/Last 30 Days : No Tobacco Use/Last 12 months : No SHIRIN WEEKS LPN - 01/27/2016 13:55 CDT Caffeine Use Grid Caffeine Use : Current Type : Coffee Frequency : Daily SHIRIN WEEKS LPN - 01/27/2016 13:55 CDT Source: Get[employer] Document Id: [id number] CDT!45 documented in this encounter Plan of Treatment Not on filedocumented as of this encounter Visit Diagnoses Not on filedocumented in this encounter
--- OUTSIDE RECORDS SUMMARY | 2022-05-24 18:27 | XMS_ITS | Encounter Summary ---
:1945 Author Organization [facility] Address [address] [place] [address] Care Team Providers Name Role Phone Unavailable Primary Care Provider Unavailable Encounter Details Date Type Department Care Team Description 10/12/2016 Hospital Encounter HX [facility] Tammy Mccoy M.D. Social History Tobacco Use Types Packs/Day [...] or relatives? How often do you attend gnosticism or More than 4 times per year 06/14/2019 druze services? Do you belong to any clubs or Yes 06/14/2019 organizations such as gnosticism groups, unions, fraternal or athletic groups, or [...] 4 (four) times a day as needed. benzocaine 10 % liquid Apply 1 application 0 04/201608/15/2019 topically 4 (four) times a day. BISMUTH SUBSALICYLATE Take by mouth as 0 03/13/20 09 04/01/2019 ORAL needed. fluocinonide Apply 1 application 0 12/02/201503/2018 (for_LIDEX) 0.05 % topically as needed. external solution gemfibrozil Take 1 tablet by mouth 0 09/05/2016 1 11/01/2016 (for_LOPID) 600 mg 2 (two) times a day. tablet lisinopril Take 1 tablet by mouth 0 09/05/2016 (for_PRINIVIL,ZESTRIL) daily. 5 mg tablet metoprolol tartrate Take 0.5 tablets by 0 016 08/31/2017 (for_LOPRESSOR) 25 mg mouth 2 (two) times a tablet day. documented as of this encounter Miscellaneous Notes Miscellaneous - Nikia Mccoy M.D. - 10/14/2016 8:36 AM CST Normal Results Letter October 14, [address] [id number] [facility] [id number] Dear A[facility], I am pleased to report that your results from the following diagnostic test(s) are normal. Please follow up with us as we discussed during your visit or sooner if you have any concerns. If you have questions or concerns, please do not hesitate to call our office. Result Name Current Result Previous Result Normal Range U Albumin (mg/L) 103.0 10/12/2016 116.0 04/11/2016 U Creatinine (mg/dL) 99 10/12/2016 93 04/11/2016 40 - 278 U Alb/Creatinine Ratio (mg/gm) (H) 104 10/12/2016 (H) 124 04/11/2016 - <=16 Sodium Lvl (mmol/L) 140 10/12/2016 144 04/11/2016 135 - 145 Potassium Lvl (mmol/L) 4.9 10/12/2016 (H) 5.2 04/11/2016 3.5 - 5.1 Chloride (mmol/L) 106 10/12/2016 (H) 111 04/11/2016 98 - 107 CO2 (mmol/L) 22 10/12/2016 (L) 19 04/11/2016 22 - 29 AGAP (mmol/L) 12 10/12/2016 14 04/11/2016 7 - 15 Glucose Fasting (mg/dL) (H) 111 10/12/2016 (H) 185 08/31/2015 70 - 99 Creatinine (mg/dL) 1.2 10/12/2016 1.0 04/11/2016 0.8 - 1.3 EGFR (MDRD) (mL/min/SA) (L) 59.5 10/12/2016 >60.0 04/11/2016 >=60.0 - EGFR (MDRD) (mL/min/SA) >60 10/12/2016 >60 04/11/2016 >=60 - BUN (mg/dL) 21 10/12/2016 23 04/11/2016 6 - 24 Calcium Lvl (mg/dL) 9.4 10/12/2016 9.5 04/11/2016 8.8 - 10.3 AST (U/L) 44 10/12/2016 21 01/25/2016 8 - 48 Cholesterol (mg/dL) 141 10/12/2016 120 08/31/2015 - <=199 Trig (mg/dL) 144 10/12/2016 (H) 156 08/31/2015 - <=149 HDL (mg/dL) (L) 24 10/12/2016 (L) 24 08/31/2015 >=40 - LDL Calculated (mg/dL) 88 10/12/2016 65 08/31/2015 - <=129 Hgb A1c (% A1C) (H) 7.5 10/12/2016 (H) 6.6 04/11/2016 - <=5.6 Sincerely, NIKIA MCCOY [address] [place] [address] [id number] Electronic Signature Electronically Signed By: NIKIA MCCOY MD On: October 14, 2016 This document has images extracted. Source: [facility] POWERCHART Document Id: [id number] Electronically signed by Conversion, [facility] Right Of Way Maintenance Supervisor [id number] at 02/21/2017 12:21 AM CDT documented in this encounter Plan of Treatment Not on filedocumented as of this encounter Procedures Procedure Name Priority Date/Time Associated Comments Diagnosis ALBUMIN, RANDOM, U Routine 10/12/2016 8:29 Result s for this AM ASSISTANT MANAGER TRAINEE procedure are i n the results section. LIPID PANEL, S Routine 10/12/2016 8:24 Results fo r this AM ASSISTANT MANAGER TRAINEE procedure are i n the results section. ASPARTATE Routine 10/12/2016 8:24 Results for this AMINOTRANSFERASE (AST), AM ASSISTANT MANAGER TRAINEE proc edure are in S/P the results section. HEMOGLOBIN A1C, B Routine 10/12/2016 8:24 Results for this AM ASSISTANT MANAGER TRAINEE procedure are i n the results section. BASIC METABOLIC PANEL, Routine 10/12/2016 8:24 Re sults for this S/P AM ASSISTANT MANAGER TRAINEE procedure are i n the results section. documented in this encounter Results (ABNORMAL) Microalbumin, Random, Urine (10/12/2016 8:29 AM ASSISTANT MANAGER TRAINEE) P athologist Signature HXU Albumin % 103.0 MGL POWERCHART Creatinine, 99 40 - 278 POWERCHART Random, U MGDL Comment: No established reference values for random urine samples. Albumin/Creatinine Ratio 104 (H) <=16 MGGM POWER CHART Specimen (Source) Anatomical Collection Method Collection Time Re ceived Time Location / / Volume Laterality Urine 10/12/2016 8:29 AM ASSISTANT MANAGER TRAINEE Nikia Mccoy M.D. LAB URINE ORDERABLES Performing Organization Address City/State/ZIP Code Phon e Number POWERCHART (ABNORMAL) BMP (Basic Metabolic Panel) (10/12/2016 8:24 AM ASSISTANT MANAGER TRAINEE) Patholo gist Method Time Signature Sodium, S 140 135 - 145 POWERCHART MMOLL Potassium, S 4.9 3.5 - 5.1 POWERCHART MMOLL Chloride, S 106 98 - 107 POWERCHART MMOLL CO2 Total 22 22 - 29 POWERCHART MMOLL Glucose, 111 (H) 70 - 99 POWERCHART Fasting, S MGDL BUN (Blood Urea 21 6 - 24 MGDL POWERCHART Nitrogen), S Creatinine 1.2 0.8 - 1.3 POWERCHART MGDL Calcium, Total, 9.4 8.8 - 10.3 POWERCHART S MGDL Anion Gap 12 7 - 15 POWERCHART MMOLL HXeGFR (MDRD) 59.5 (L) >=60.0 POWERCHART MLMINSA Comment: Results are in mL/min/1.73m squared CKD Stage I: GFR > 90 CKD Stage II: GFR 60 to 89 CKD Stage III: GFR 30 to 59 CKD Stage IV: GFR 15 to 29 CKD Stage V: GFR < 15 or Dialysis eGFR Black/ >60 >=60 MLMINSA POWERCHART Specimen (Source) Anatomical Collection Method Collection Time Re ceived Time Location / / Volume Laterality Blood 10/12/2016 8:24 AM ASSISTANT MANAGER TRAINEE Nikia Mccoy M.D. LAB BLOOD ADD-ON Performing Organization Address City/State/ZIP Code Phon e Number POWERCHART AST (Aspartate Aminotransferase) (10/12/2016 8:24 AM ASSISTANT MANAGER TRAINEE) Patholo gist Method Time Signature Aspartate 44 8 - 48 UL POWERCHART Aminotransferase (AST), S Specimen (Source) Anatomical Collection Method Collection Time Re ceived Time Location / / Volume Laterality Blood 10/12/2016 8:24 AM ASSISTANT MANAGER TRAINEE Nikia Mccoy M.D. LAB BLOOD ADD-ON Performing Organization Address City/State/ZIP Code Phon e Number POWERCHART (ABNORMAL) Lipid Panel (10/12/2016 8:24 AM ASSISTANT MANAGER TRAINEE) P athologist Signature Cholesterol, 141 <=199 MGDL POWERCHART Total Comment: 2014 National Lipid Association recommen dations for Total Cholesterol in adults ages 18 and up: Desirable <200 mg/dL Borderline high 200-239 mg/dL High 240 mg/dL 2014 National Lipid Association recommen dations for Total Cholesterol in children ages 2 to 17. Acceptable <170 mg/dL Borderline High 170-199 mg/dL High 200 mg/dL HX HDL 24 (L) >=40 MGDL POWERCHART Comment: 2014 National Lipid Association recommen dations for HDL-C in adults ages 18 and up: Low <40 mg/dL (Men) Low <50 mg/dL (Women) 2014 National Lipid Association recommen dations for HDL-C in children ages 2 to 17. Low <40 mg/dL Borderline Low 40-45 mg/dL Acceptable >45 mg/dL Triglycerides 144 <=149 MGDL POWERCHART Comment: 2013 National Lipid Association recommen dations for Triglycerides in adults ages 18 and up: Normal <150 mg/dL Borderline High 150-199 mg/dL High 200-499 mg/dL Very High 500 mg/dL 2014 National Lipid Association recommen dations for Triglycerides in children ages 2 to 9. Acceptable <75 mg/dL Borderline High 75-99 mg/dL High 100 mg/dL 2014 National Lipid Association recommen dations for Triglycerides in children ages 10 to 17. Acceptable <90 mg/dL Borderline High 90-129 mg/dL High 130 mg/dL Trigs >400mg/dL: Triglycerides >400 mg/ dL. Calculated LDL cholesterol is not valid. Non-HDL cholesterol may be used for risk assessment when triglycerides are >400mg/dL. Calculated LDL 88 <=129 MGDL POWERCHART Comment: 2013 National Lipid Association recommen dations for LDL-C in adults ages 18 and up: Desirable <100 mg/dL Above desirable 100-129 mg/dL Borderline high 130-159 mg/dL High 160-189 mg/dL Very High 190 mg/dL 2014 National Lipid Association recommen dations for LDL-C in children ages 2 to 17. Acceptable <110 mg/dL Borderline High 110-129mg/dL High 130 mg/dL LDL-C >190mg/dL: The markedly elevated LDL level is suggestive of a genetic condition such as familial hypercholesterolemia(FH) or familial defective apolipoprotein B-100 (FDB). Molecular genetic t esting for FH and FDB is available anoop [facility]: FH/ADH Genetic Reflex Gonzales el (test ADHP). Acquired (non-genetic) causes of markedly increased LDL cholesterol include cholestatic liver disease due to the presence of LpX. If a genetic form of hypercholesterolemia is suspected, family studies including biochemical testing fo r lipids (total cholesterol,triglycerides, LDL cholesterol and HDL cholesterol) are recommended. ??Please contact the laboratory at or the on-line test catalog at [facility] for information about how to order these scottie ts or to speak with a genetic counselor. Further interpretation would require clinical information. Specimen (Source) Anatomical Collection Method Collection Time Re ceived Time Location / / Volume Laterality Blood 10/12/2016 8:24 AM ASSISTANT MANAGER TRAINEE Nikia Mccoy M.D. LAB BLOOD ADD-ON Performing Organization Address City/State/ZIP Code Phon e Number POWERCHART (ABNORMAL) Hemoglobin A1c (10/12/2016 8:24 AM ASSISTANT MANAGER TRAINEE) P athologist Signature Hemoglobin A1c, 7.5 (H) <=5.6 A1C POWERCHART B Specimen (Source) Anatomical Collection Method Collection Time Re ceived Time Location / / Volume Laterality Blood 10/12/2016 8:24 AM ASSISTANT MANAGER TRAINEE Nikia Mccoy M.D. LAB BLOOD ADD-ON Performing Organization Address City/State/ZIP Code Phon e Number POWERCHART documented in this encounter Visit Diagnoses Not on filedocumented in this encounter
--- OUTSIDE RECORDS SUMMARY | 2022-05-24 18:27 | XMS_ITS | Encounter Summary ---
:1945 Author Organization [facility] Address [address] [place] [address] Care Team Providers Name Role Phone Cathy Mccoy M.D. Primary Care Provider Unavailable Reason for Visit Reason Comments Med Refill Encounter Details Date Type Department Care Team Description 09/06/2017 Refill Department of Family Medicine Cathy Mccoy Med Refill in [facility] ynes [place] [address] [place] [address] Social History Tobacco Use [...] or relatives? How often do you attend oriental orthodox or More than 4 times per year 06/14/2019 anabaptist services? Do you belong to any clubs or Yes 06/14/2019 organizations such as oriental orthodox groups, unions, fraternal or athletic groups, or [...] encounter Miscellaneous Notes Telephone Encounter - Sarika Polo R.N. - 09/06/2017 1:38 PM CST Refill ESS SPECIALIST documented in this encounter Plan of Treatment Not on filedocumented as of this encounter Visit Diagnoses Not on filedocumented in this encounter Care Teams State Historical Society Director Relationship Specialty Start Date End Date Cathy Mccoy M.D. PCP - General 02/23/17 12/18/19 documented as of this encounter
--- OUTSIDE RECORDS SUMMARY | 2022-05-24 18:27 | XMS_ITS | Encounter Summary ---
:1945 Author Organization [facility] Address [address] [place] [address] Care Team Providers Name Role Phone Unavailable Primary Care Provider Unavailable Encounter Details Date Type Department Care Team Description 09/14/2015 Hospital Encounter [facility]X [facility] Nikia Mccoy M.D. Social History Tobacco Use Types [...] ORAL needed. documented as of this encounter Nursing Notes Charline Henning RDN, LD - 09/14/2015 2:05 PM CST Order Processing Manager Intake (Adult) Order Processing Manager Intake (Adult) Entered On: 09/14/2015 14:08 RADIOLOGY MANAGER Performed On: 09/14/2015 14:05 RADIOLOGY MANAGER by CHARLINE HENNING RDN Assessment Program Type : Non-Program Type of Visit : Diabetes MNT Diabetes Referring Provider : NIKIA MCCOY MD Comprehensive Program Start Date : 11/02/2011 RADIOLOGY MANAGER Special needs : None Method Used for DSME : Individual Program Non-completion Reason : Stopped coming, ceased correspondance via fax Last Educator Visit Date : 02/05/2013 CDT Diabetes Type : Type 2 19 years and older Ethnicity : White/ Diabetes Onset At Age : 44 Diabetes Visit Summary : CLINICAL NUTRITION - Initial Assessment REASON FOR VISIT: type 2 diabetes mellitus and pancreatitis Referring provider: Nadine Total Time: 45 minutes, 45 minutes spent in counseling and coordination of care. RECOMMENDATIONS/COMMUNICATION TO REFERRING PROVIDER Recommend the following carbohydrate consistent meal plan: 4 carb choices per meal for 3 meals. And 0-2 carb choices per snack. NUTRITION ASSESSMENT 70 year old male who attends today related to dx of DM and pancreatitis. Has not had any diabetic diet education previously. Would like help with diet to help with his pancreatitis. Nutrition History: is eating 3 meals per day and snack PRN. Has difficulties with some foods not being digested well related to the pancreatitis also reports runny stools. He takes Creon for this. NUTRITION DIAGNOSIS Food and Nutrition related knowledge deficit related to lack of nutrition related education e/b is not aware of what to eat and not eat. NUTRITION PLAN Follow carbohydrate controlled meal plan to improve blood glucose control using carb counting. Also focus on a healthy balanced diet for good nutrition. Also will avoid food not tolerated. INTERVENTION Meals and snacks: Recommended eating 3 meals per day to promote a consistent carb intake. Encouragedfruit and vegetable intake. Decrease portions. Limit high fat foods. Spent time on just eating a healthy diet and the impact fats and proteins and fiber can have on blood sugars. Discussed eating slowly and chewing foods well. Discussed limiting fats. Nutrition education: review of education materials, appropriate food choices, reading food labels, portion control Discussed macronutrient content of food and the role of calories in the diet. Explained how meal timing and carbohydrate intake will affect blood glucose. Covered 15g portion sizes of carbohydrates andhow to determine carbohydrate choices from a food label. Discussed label reading for carbohydrate and calorie content. Used the following teaching methods to enhance education: verbal explanation, use of print materials, use of food models Teaching Evaluation: able to teach back, verbalizes understanding what he should be doing to minimize food intolerances. Education materials provided: Diabetes nutrition therapy from [employer] MONITORING AND EVALUATION Nutrition Diagnosis has resolved and/or education is complete-Will follow up per patient or staffingrequest. Provided contact information and encouraged the patient to call with questions. Time Spent With Patient : 45 Minutes CHARLINE HENNING RDN - 09/14/2015 14:05 RADIOLOGY MANAGER DSMS Plan DSMS Plan Statement : This personalized follow-up plan for on-going self- management support was developed collaboratively with the patient. The patient feels this plan will help them manage their diabetes in the future. Diabetes Self Management Support Plan : Follow up with Primary Provider, Other: CHARLINE HENNING RDN - 09/14/2015 14:05 RADIOLOGY MANAGER Source: [facility] POWERCHART Document Id: [id number] RADIOLOGY MANAGER!18 OLOGY MANAGER documented in this encounter Plan of Treatment Not on filedocumented as of this encounter Visit Diagnoses Not on filedocumented in this encounter
--- OUTSIDE RECORDS SUMMARY | 2022-05-24 18:27 | XMS_ITS | Encounter Summary ---
:1945 Author Organization [facility] Address [address] [place] [address] Care Team Providers Name Role Phone Unavailable Primary Care Provider Unavailable Encounter Details Date Type Department Care Team Description 07/13/2016 Hospital Encounter [facility] [facility] [place] Rosenthal M.D. Social History Tobacco Use [...] More than 4 times per year 06/14/2019 pentecostal services? Do you belong to any clubs [...] Sign Reading Time Taken Comments Blood Pressure 110/64 07/13/2016 8:14 AM CDT Pulse 72 07/13/2016 8:14 AM CDT Temperature - - Respiratory Rate 20 07/13/2016 8:14 AM CDT Oxygen Saturation - - Inhaled Oxygen Concentration - - Weight 112 kg (246 lb 4.1 oz) 07/13/2016 8:14 AM CDT Height 174 cm (5' 8.5) 07/13/2016 8:14 AM CDT Body Mass Index 36.89 07/13/2016 8:14 AM CDT documented in this encounter Medications at [...] encounter Progress Notes Cathy Mccoy M.D. 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 This will be on the EMR, and he is okayed for 1 year. He has not had any episodes of syncope or near-syncope. Hehas, however, had an upper respiratory infection for the last 5 days. He is seeming a little bit better today, but he would like to be checked over. PAST MEDICAL/SURGICAL HISTORY Acute myocardial infarction with cardiac arrest. Arterial stent. Coronary artery disease. Diabetes. Gout. Hypertension. Hyperlipidemia. History of Helicobacter pylori. Chronic pancreatitis. Proteinuria. Skin cancer. Colonoscopy 2007. Gastroscopy in July 2013. Excision of calcaneal spur in 2006. FAMILY HISTORY Mother had brain tumor. Three brothers had cataracts. One brother had coronary artery disease. Four brothers and a sister have diabetes. Sister has GERD. Brother has glaucoma. Brother has kidney stone.Brother has pacemaker. Brother had a stroke. SOCIAL HISTORY He is not a smoker, but he has lived with a smoker. Drinks coffee currently. MEDICATIONS Albuterol metered-dose inhaler. Allopurinol 100 mg. Creon 36,000 units 2 tabs 3 times a day. EpiPen as needed. Fish oil 1000 mg 3 times a day. Gas-X 80 mg as needed. Gemfibrozil 600 mg twice a day. Humalog 75/25, 70 in the a.m., 70 in the p.m. Lidex 0.05% topical solution twice a day as needed. Lisinopril 5 mg daily. Metformin 500 mg 1 tab daily extended release. Metoprolol 25 mg 1/2 tab twice a day. Nitroglycerin as needed. Pepto-Bismol as needed. Phenylephrine 0.5% nasal spray as needed. Nasal saline as needed. ALLERGIES ADHESIVES cause rash. ASPIRIN caused nosebleeds. BEE STINGS. CLINDAMYCIN. LIPITOR. PENICILLIN. SYSTEMS REVIEW See HPI. Remainder negative. VITAL SIGNS Blood pressure 110/64, pulse 72, respirations 20, temp 36.8. Weight 111.7 kg, height 174 cm. PHYSICAL EXAMINATION HEENT: No sinus tenderness. Oropharynx is nonerythematous. NECK: Supple without lymphadenopathy. CHEST: Clear to auscultation bilaterally. CARDIOVASCULAR: Regular rate and rhythm. No murmur. IMPRESSION/REPORT/PLAN 1. Diabetes. 2. Upper respiratory infection. PLAN: Symptomatic care for the upper respiratory infection. Did not hear any problems with his chest. Filled out his form. As mentioned, he can go for 1 year and he needs to be rechecked at that point. ADMINISTRATIVE BILLING Total time spent was 15 minutes with 10 minutes in counseling and coordination of care. Cathy Mccoy M.D./pos Electronically Signed By: CATHY MCCOY MD On: 07/26/2016 10:00 AM Source: [facility] MHSDOLBEYNONRADSYS Document Id: [id number] S MANAGER documented in this encounter Miscellaneous Notes Miscellaneous - Conversion, Historical Provider Ser - 08/25/2016 10:06 AM WORKS MANAGER SIDDHARTH *General Message Document Contains Addenda Addendum by KEISHA DORANTES RN on September 13, 2016 07:59:17 WORKS MANAGER From: KEISHA DORANTES RN ([place] Specialty Gastroenterology/Hepatology Nurse) To: KEISHA DORANTES RN; Sent: 09/13/2016 07:59:17 WORKS MANAGER Subject: FW: SIDDHARTH *General Message Addendum by KEISHA DORANTES RN on September 13, 2016 07:59:07 WORKS MANAGER Noted Addendum by JERICA ELLISON MD on September 12, 2016 15:00:25 WORKS MANAGER From: JERICA ELLISON MD To: PA Specialty Gastroenterology/Hepatology Nurse; Sent: 09/12/2016 15:00:25 WORKS MANAGER Subject: RE: SIDDHARTH *General Message I called and discussed with his . Switch first and call back if he has any diarrhea and bloatingproblem. Addendum by KEISHA DORANTES RN on September 07, 2016 13:49:33 WORKS MANAGER From: KEISHA DORANTES RN ([place] Specialty Gastroenterology/Hepatology Nurse) To: JERICA ELLISON MD; Sent: 09/07/2016 13:49:33 WORKS MANAGER Subject: FW: SIDDHARTH *General Message Ave [facility] called back and continues to have concerns regarding his prescriptions. He said the intent wasto switch medicines that were less expensive without decreasing the amount of creon. He was taking 216,000 iu of Creon and you recently sent in new prescriptions for his pancrealipase to equal 144,000iu (2caps-3x a day). He thinks he should be taking 3 pills of the pancrealipase 3x a day to equal 216,000iu. Patient said if needed he will be happy to come and see you again to discuss. If you wish to talk with him his number is [phone] Please advise on prescription. Thank you. Keisha Addendum by KEISHA DORANTES RN on September 02, 2016 11:06:23 WORKS MANAGER Called patient and left msg that DR. Ellison has sent updated prescription for patients pancrelipase Addendum by KEISHA DORANTES RN on September 01, 2016 13:25:16 WORKS MANAGER Called and left message with callback number Addendum by JERICA ELLISON MD on September 01, 2016 12:16:33 WORKS MANAGER From: JERICA ELLISON MD To: PA Specialty Gastroenterology/Hepatology Nurse; Sent: 09/01/2016 12:16:33 WORKS MANAGER Subject: RE: SIDDHARTH *Patient Medication Question OK. I have sent a new order to double the pancreatic enzyme supplement. Does he have diarrhea or bloating? Addendum by JERICA ELLISON MD on September 01, 2016 12:15:40 WORKS MANAGER Submitted: Order:pancrelipase 2 cap(s) PO 3xDay Qty: 180 cap(s) Duration: 30 day(s) Refills: 11 Substitutions Allowed Route To [facility]acy - [facility] Signed by JERICA ELLISON MD 09/01/2016 12:15:14 Addendum by KEISHA DORANTES RN on August 25, 2016 10:28:33 WORKS MANAGER From: KEISHA DORANTES RN ([place] Specialty Gastroenterology/Hepatology Nurse) To: JERICA ELLISON MD; Sent: 08/25/2016 10:28:33 WORKS MANAGER Subject: FW: SIDDHARTH *Patient Medication Question Dr. Ellison, I spoke to patient, he was on: Creon 36,000 units and took 2 caps 3x a day for a total of 216,000 units daily When he saw you on 08/18 you changed his prescription to Pancrealipase 24,000 units, 76,0000 units-120,000 units. Delayed oral capsule Dosing 1 tab 3x a day--total 72,000 units daily His concerns is the difference in units between the 2 meds and that he may not be getting enough daily dosing. Please advise on difference of meds and any changes if needed. Thank you, Keisha From: ALO POLO To: SAGE Specialty Gastroenterology/Hepatology Nurse; Sent: 08/25/2016 10:06:00 WORKS MANAGER Subject: LI *General Message If you need a prescription refill please call your pharmacy. Please allow 3 business days for processing. Call Center Template: ?? May we leave a message for you on this phone? ?? What can I help you with today? Patient is asking to speak w/ GI Nurse today, regarding a mix up on his medication Creon(sp?) states the dosage that the pharmacy has given him is not correct. I will send this information to the appropriate staff member who will look into your concern. Someone will call you back within 4 business hours.. Thank you for calling [facility]. Source: [facility] POWERXIPWIRE Document Id: [id number] Miscellaneous - Cathy Mccoy M.D. - 07/13/2016 8:45 AM CDT Ambulatory Patient Summary [place] - [address] [id number] Visit Information Name: AVE CHANCE [facility] Number: [id number] Current Date: 07/13/2016 08:45:52 Physicians Attending Provider: CATHY MCCOY MD Primary Care Provider: CATHY MCCOY MD A[facility] CH[facility] MJ has been given the following list of [...] 1 Tablet(s), Oral, two times a day insulin lispro protamine-insulin lispro (HumaLOG Mix 75/25 subcutaneous suspension) See [id number] am and 70 pm E11.9 lisinopril (lisinopril [...] 0.5% nasal spray) as needed for allergies simethicone (Gas-X) 80 mg, , as needed sodium chloride nasal (Saline Nasal Mist nasal spray) 2 [place](s), Nostrils(Both), four times a day as needed for Dry nasal passages Stop Taking the Following Medications: Medication list as of 07-13-16 08:45 Attention: If you have any medications at [...] Electronically Signed By: CATHY MCCOY MD Signed On:13-JUL-2016 08:45:44 Your Allergies & Intolerances Substance Reaction Symptoms [...] Your Upcoming Appointments Date Time Location Provider 08/09/2016 12:45 TRUE TALAVERA/Efrain Skinner MD Attention: Contact your local Clinic if further appointment detail needed. Consider Using Patient Online Services Patient Online [...] if you dont have one. Go to [email or web address] and click on Create Your Account. Then, follow the directions to complete the online form. Youll be asked for your [facility] number which you can find at the top of this document. Your Goals/Additional instructions: Source: [facility] POWERCHART Document Id: [id number] Miscellaneous - Cathy Mccoy M.D. - 07/13/2016 8:45 AM CDT Ambulatory Discharge Medication List [place] - [address] [id number] Visit Information Name: AVE CHANCE [facility] Number: [id number] Current Date: 07/13/2016 08:45:51 Attending Provider: CATHY MCCOY MD Primary Care [...] 1 Tablet(s), Oral, two times a day insulin lispro protamine-insulin lispro (HumaLOG Mix 75/25 subcutaneous suspension) See Iufitahtpuhl04 am and 70 pm E11.9 lisinopril (lisinopril [...] 0.5% nasal spray) as needed for allergies simethicone (Gas-X) 80 mg, , as needed sodium chloride nasal (Saline Nasal Mist nasal spray) 2 [place](s), Nostrils(Both), four times a day as needed for Dry nasal passages Stop Taking the Following Medications: Medication list as of 07-13-16 08:45 Attention: If you have any medications at [...] Electronically Signed By: CATHY MCCOY MD Signed On:13-JUL-2016 08:45:44 Additional Information: Yes - . Source: [facility] POWERCHART Document Id: [id number] Miscellaneous - Shirin Keen L.P.N. - 07/13/2016 8:14 AM CDT Adult Nanosystems Engineer Intake/History Adult Nanosystems Engineer Intake/History Entered On: 07/13/2016 8:16 CDT Performed On: 07/13/2016 8:14 CDT by SHIRIN KEEN LPN Intake Chief Complaint : diabetes drivers form for DMV Temperature Core : 36.8 DegC(Converted to: 98.2 DegF) Peripheral Pulse Rate : 72 /min Respiratory Rate : 20 /min Heart Rhythm : Regular Systolic Blood Pressure : 110 mmHg Diastolic Blood Pressure : 64 mmHg NIBP Mean : 79 mmHg BP Location : Left upper extremity Blood Pressure Cuff Size : Large Height : 174 cm(Converted to: 5 ft 9 inch(es), 69 inch(es)) Actual Weight : 111.7 kg(Converted to: 246 lb 4 oz) Weight Source : Standing scale Dosing Weight Clinic : 111.7 kg Clinic BSA : 2.32 Body Mass Index : 36.89 kg/m2 SHIRIN KEEN LPN - 07/13/2016 8:14 CDT General Info Information Given By : Patient Preferred Communication Mode : Verbal Languages : Kazakh Is Patient Female and 13-50 no hysterectomy : No SHIRIN KEEN LPN - 07/13/2016 8:14 CDT Subjective Pain Symptoms : No SHIRIN KEEN LPN - 07/13/2016 8:14 CDT Dependent Habits Exposure to Tobacco Smoke : Other: non smoker Smoking Status : Never smoker Tobacco 2A : No Tobacco Use/Currently Using : No Tobacco Use/Last 30 Days : No Tobacco Use/Last 12 months : No SHIRIN KEEN LPN - 07/13/2016 8:14 CDT Caffeine Use Grid Caffeine Use : Current Type : Coffee Frequency : Daily SHIRIN KEEN LPN - 07/13/2016 8:14 CDT Source: [place] Document Id: [id number] CDT!37 documented in this encounter Plan of Treatment Not on filedocumented as of this encounter Visit Diagnoses Not on filedocumented in this encounter
--- OUTSIDE RECORDS SUMMARY | 2022-05-24 18:27 | XMS_ITS | Encounter Summary ---
:1945 Author Organization [facility] Address [address] [place] [address] Care Team Providers Name Role Phone Unavailable Primary Care Provider Unavailable Encounter Details Date Type Department Care Team Description 08/18/2016 Hospital Encounter HX [facility] Jerica Freeamn M. D. Social History Tobacco Use Types Packs/Day Years [...] Sign Reading Time Taken Comments Blood Pressure 144/78 08/18/2016 9:21 AM PRIVATE EQUITY ANALYST Pulse 66 08/18/2016 9:21 AM PRIVATE EQUITY ANALYST Temperature - - Respiratory Rate 16 08/18/2016 9:21 AM PRIVATE EQUITY ANALYST Oxygen Saturation - - Inhaled Oxygen Concentration - - Weight 116 kg (255 lb 4.7 oz) 08/18/2016 9:21 AM PRIVATE EQUITY ANALYST Height 174 cm (5' 8.5) 08/18/2016 9:21 AM PRIVATE EQUITY ANALYST Body Mass Index 38.25 08/18/2016 9:21 AM PRIVATE EQUITY ANALYST documented in this encounter Medications at Time [...] documented as of this encounter Progress Notes Jerica Ellison M.D. - 08/18/2016 9:15 AM CST [id number] CHIEF COMPLAINT/REASON FOR VISIT Chronic pancreatitis with a history of weight loss and diarrhea and pancreatic insufficiency. PRIMARY PHYSICIAN: Nikia Mccoy M.D. CONSULTING PHYSICIAN: Jerica Ellison M.D. HISTORY OF PRESENT ILLNESS Mr. Chance returns to the clinic for followup. The patient has gained additional weight since last year and he now weighs approximately 255 pounds with a body mass index of 38.3. This is the highestbody mass index since I first met Mr. Chance about 2 years ago, when he was having unexplained weight loss. CT scan that was performed this summer showed pancreatic atrophy in the body and tail withmultiple calcifications in the head and the body of the pancreas along the pancreatic duct. There was no obvious tumor or mass lesion that was noted. 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 The patient is currently doing well. He has occasional bloating and diarrhea. Other than that, he has no complaint. The last colonoscopy, 3 years ago, was completely normal. The patient is concerned about the cost of Creon, which is approximately 300 dollars a month of co-pay. His insurance apparentlychanged his Creon medication to tier 4, which requires a much higher co-pay that he previously paid. PHYSICAL EXAMINATION VITAL SIGNS: Temperature 36.5, pulse 66, respiratory rate 16, blood pressure 144/78. Weight is 116 kg, body mass index 38.3. ABDOMEN: Round, soft, nontender. Bowel sounds present, normoactive. No rebound, no guarding, no palpable mass. 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 The patient has gained more weight since last year. His pancreatic insufficiency is adequately treated at this point. The patient's most recent A1c is 6.6, which is well controlled. I have contacted the patient's [employer] insurance company and obtained an alternative pancrelipase strength, which is covered under his insurance policy; it is on tier 2 and will cost approximately 40 dollars a month. The regimen is 24,000 units/76,000 units/120,000 units 1 pill with each meal, 3 times aday. The [facility] prescription [facility] to [facility]. PLAN: Return to clinic in 6 months. We will obtain pancreas imaging at that time and continue pancrelipase supplement to treat the patient's exocrine pancreatic insufficiency. Juliano Ellison M.D./pos cc: Nikia Mccoy M.D. [facility] [place] [address] Electronically Signed By: JERICA ELLISON MD On: 09/23/2016 06:25 AM [facility]SYEfrain Document Id: [id number] ATE EQUITY ANALYST documented in this encounter Miscellaneous Notes Miscellaneous - Jerica Ellison M.D. - 08/18/2016 10:30 AM CST Ambulatory Patient Summary [address] [place], [place] [id number] Visit Information Name: JORGE CHANCE [facility] Number: [id number] Current Date: 08/18/2016 10:30:08 Physicians Attending Provider: JERICA ELLISON MD Primary Care Provider: NIKIA MCCOY MD JORGE CHANCE has been given the following list [...] 1 Tablet(s), Oral, two times a day benzocaine topical (Anbesol Liquid) 1 cecile, Topical, four times a day bismuth subsalicylate (Pepto-Bismol) Oral, as needed upset stomach EPINEPHrine (EpiPen 2-Yves 0.3 mg injectable kit) 0.3 mg, Intramuscular, once fluocinonide topical (Lidex 0.05% topical solution) 1 cecile, Topical, two times a day gemfibrozil (gemfibrozil 600 mg oral tablet) 1 Tablet(s), Oral, two times a day insulin lispro protamine-insulin lispro (HumaLOG Mix 75/25 subcutaneous suspension) See [id number] am and 70 pm E11.9 lisinopril (lisinopril [...] cap, Oral, three times a day pancrelipase (pancrelipase 24,000 units-76,000 units-120,000 units oral delayed release capsule) 1 cap, Oral, three times a day This is a CHANGE Routed to [address] [address] phenylephrine nasal (phenylephrine 0.5% nasal spray) as needed for allergies simethicone (Gas-X) 80 mg, , as needed sodium chloride nasal (Saline Nasal Mist nasal spray) 2 [place](s), Nostrils(Both), four times a day as needed for Dry nasal passages Stop Taking the Following Medications: Medication list as of 08-18-16 10:30 Attention: If you have any medications at home that are not on this list, DO NOT take them until youcontact your provider for clarification. Give a copy of your medication list to your primary care provider. Update your medication list any time medications or doses are changed and carry your medication list at all times in case of emergency. Electronically Signed By: JERICA ELLISON MD Signed On:18-AUG-2016 10:27:32 Your Allergies & Intolerances Substance Reaction Symptoms [...] Your Upcoming Appointments Date Time Location Provider No Appointments found Attention: Contact your local Clinic if further [...] if you dont have one. Go to [email or web address] and click on Create Your Account. Then, follow the directions to complete the online form. Youll be asked for your [facility] number which you can find at the top of this document. Your Goals/Additional instructions: Source: [facility] POWERCHART Document Id: [id number] ATE EQUITY ANALYST Miscellaneous - Jerica Ellison M.D. - 08/18/2016 10:30 AM CST Ambulatory Discharge Medication List [address] [place] [id number] Visit Information Name: JORGE CHANCE [facility] Number: [id number] Current Date: 08/18/2016 10:30:04 Attending Provider: JERICA ELLISON MD Primary Care Provider: NIKIA MCCOY MD JORGE CHANCE has been given the following list [...] 1 Tablet(s), Oral, two times a day benzocaine topical (Anbesol Liquid) 1 cecile, Topical, four times a day bismuth subsalicylate (Pepto-Bismol) Oral, as needed upset stomach EPINEPHrine (EpiPen 2-Yves 0.3 mg injectable kit) 0.3 mg, Intramuscular, once fluocinonide topical (Lidex 0.05% topical solution) 1 cecile, Topical, two times a day gemfibrozil (gemfibrozil 600 mg oral tablet) 1 Tablet(s), Oral, two times a day insulin lispro protamine-insulin lispro (HumaLOG Mix 75/25 subcutaneous suspension) See [id number] am and 70 pm E11.9 lisinopril (lisinopril [...] cap, Oral, three times a day pancrelipase (pancrelipase 24,000 units-76,000 units-120,000 units oral delayed release capsule) 1 cap, Oral, three times a day This is a CHANGE [facility] [address] phenylephrine nasal (phenylephrine 0.5% nasal spray) as needed for allergies simethicone (Gas-X) 80 mg, , as needed sodium chloride nasal (Saline Nasal Mist nasal spray) 2 [place](s), Nostrils(Both), four times a day as needed for Dry nasal passages Stop Taking the Following Medications: Medication list as of 08-18-16 10:30 Attention: If you have any medications at home that are not on this list, DO NOT take them until youcontact your provider for clarification. Give a copy of your medication list to your primary care provider. Update your medication list any time medications or doses are changed and carry your medication list at all times in case of emergency. Electronically Signed By: JERICA ELLISON MD Signed On:18-AUG-2016 10:27:32 Additional Information: Source: [employer] Document Id: [id number] ATE EQUITY ANALYST Miscellaneous - Cintia Thakkar - 08/18/2016 9:21 AM CST Adult Steaming Cabinet Tender Intake/History Adult Steaming Cabinet Tender Intake/History Entered On: 08/18/2016 9:25 PRIVATE EQUITY ANALYST Performed On: 08/18/2016 9:21 PRIVATE EQUITY ANALYST by CINTIA THAKKAR LPN Intake Chief Complaint : Chronic pancreatitis Temperature Core : 36.5 DegC(Converted to: 97.7 DegF) Peripheral Pulse Rate : 66 /min Respiratory Rate : 16 /min Systolic Blood Pressure : 144 mmHg (HI) Diastolic Blood Pressure : 78 mmHg NIBP Mean : 100 mmHg BP Location : Left upper extremity Blood Pressure Cuff Size : Regular Height : 174 cm(Converted to: 5 ft 9 inch(es), 69 inch(es)) Actual Weight : 115.8 kg(Converted to: 255 lb 5 oz) Dosing Weight Clinic : 115.8 kg Clinic BSA : 2.37 Body Mass Index : 38.25 kg/m2 CINTIA THAKKAR LPN - 08/18/2016 9:21 PRIVATE EQUITY ANALYST General Info Information Given By : Patient Languages : Latvian Is Patient Female and 13-50 no hysterectomy : No CINTIA THAKKAR LPN - 08/18/2016 9:21 PRIVATE EQUITY ANALYST Subjective Pain Symptoms : CINTIA Mckenna LPN - 08/18/2016 9:21 PRIVATE EQUITY ANALYST Dependent Habits Exposure to Tobacco Smoke : Other: non smoker Smoking Status : Never smoker Tobacco 2A : No Tobacco Use/Currently Using : No Tobacco Use/Last 30 Days : No Tobacco Use/Last 12 months : No Alcohol Use : No CINTIA THAKKAR LPN - 08/18/2016 9:21 PRIVATE EQUITY ANALYST Caffeine Use Grid Caffeine Use : Current Type : Coffee Frequency : Daily CINTIA THAKKAR LPN - 08/18/2016 9:21 PRIVATE EQUITY ANALYST [facility] Document Id: [id number] PRIVATE EQUITY ANALYST!35 ATE EQUITY ANALYST documented in this encounter Plan of Treatment Not on filedocumented as of this encounter Visit Diagnoses Not on filedocumented in this encounter
--- OUTSIDE RECORDS SUMMARY | 2022-05-24 18:27 | XMS_ITS | Encounter Summary ---
:1945 Author Organization [facility] Address [address] [place] [address] Care Team Providers Name Role Phone Unavailable Primary Care Provider Unavailable Encounter Details Date Type Department Care Team Description 04/11/2016 [facility] Tammy Mccoy M.D. Social History Tobacco [...] or relatives? How often do you attend gnosticist or More than 4 times per year 06/14/2019 orthodoxy services? Do you belong to any clubs or Yes 06/14/2019 organizations such as gnosticist groups, unions, fraternal or athletic groups, or [...] Notes Miscellaneous - Nikia Mccoy M.D. - 04/12/2016 9:41 AM CDT Normal Results Letter April 12, [address] [id number] [facility] [id number] [address] A[facility], I am pleased to report that your results from the following diagnostic test(s) are normal. Please follow up with us as we discussed during your visit or sooner if you have any concerns. If you have questions or concerns, please do not hesitate to call our office. Result Name Current Result Previous Result Normal Range U Albumin (mg/L) 116.0 04/11/2016 178.0 12/01/2015 U Creatinine (mg/dL) 93 04/11/2016 103 12/01/2015 40 - 278 U Alb/Creatinine Ratio (mg/gm) (H) 124 04/11/2016 (H) 173 12/01/2015 - <=16 Sodium Lvl (mmol/L) 144 04/11/2016 137 01/25/2016 135 - 145 Potassium Lvl (mmol/L) (H) 5.2 04/11/2016 4.5 01/25/2016 3.5 - 5.1 Chloride (mmol/L) (H) 111 04/11/2016 104 01/25/2016 98 - 107 CO2 (mmol/L) (L) 19 04/11/2016 22 01/25/2016 22 - 29 AGAP (mmol/L) 14 04/11/2016 11 01/25/2016 7 - 15 Glucose Lvl (mg/dL) (H) 147 04/11/2016 (H) 217 01/25/2016 70 - 140 Creatinine (mg/dL) 1.0 04/11/2016 1.1 01/25/2016 0.8 - 1.3 [id number] EGFR (MDRD) (mL/min/SA) >60.0 04/11/2016 >60 01/25/2016 >=60.0 - EGFR (MDRD) (mL/min/SA) >60 04/11/2016 >60 01/25/2016 >=60 - BUN (mg/dL) 23 04/11/2016 (H) 25 01/25/2016 6 - 24 Calcium Lvl (mg/dL) 9.5 04/11/2016 9.7 01/25/2016 8.8 - 10.3 Hgb A1c (% A1C) (H) 6.6 04/11/2016 (H) 7.1 08/31/2015 - <=5.6 Sincerely, NIKIA MCCOY [address] [place] [id number] Electronic Signature Electronically Signed By: NIKIA MCCOY MD On: April 12, 2016 This document has images extracted. Source: [facility] POWERCHART Document Id: [id number] Electronically signed by Conversion, [facility] Material Handler Loader [id number] at 02/05/2017 2:51 AM CDT documented in this encounter Plan of Treatment Not on filedocumented as of this encounter Procedures Procedure Name Priority Date/Time Associated Comments Diagnosis ALBUMIN, RANDOM, U Routine 04/11/2016 9:57 AM Res ults for this CDT procedure are i n the results section. HEMOGLOBIN A1C, B Routine 04/11/2016 9:53 AM Resu lts for this CDT procedure are i n the results section. BASIC METABOLIC Routine 04/11/2016 9:53 AM Result s for this PANEL, S/P CDT procedure are i n the results section. documented in this encounter Results (ABNORMAL) Microalbumin, Random, Urine (04/11/2016 9:57 AM CDT) P athologist Signature HXU Albumin % 116.0 MGL POWERCHART Creatinine, 93 40 - 278 POWERCHART Random, U MGDL Comment: No established reference values for random urine samples. Albumin/Creatinine Ratio 124 (H) <=16 MGGM POWER CHART Specimen (Source) Anatomical Collection Method Collection Time Re ceived Time Location / / Volume Laterality Urine 04/11/2016 9:57 AM CDT Authorizing Provider Result Jose Alejandro Mccoy M.D. LAB URINE ORDERABLES Performing Organization Address City/[facility] Code Phon e Number POWERCHART (ABNORMAL) Hemoglobin A1c (04/11/2016 9:53 AM CDT) P athologist Signature Hemoglobin A1c, 6.6 (H) <=5.6 A1C POWERCHART B Specimen (Source) Anatomical Collection Method Collection Time Re ceived Time Location / / Volume Laterality Blood 04/11/2016 9:53 AM CDT Nikia Mccoy M.D. LAB BLOOD ADD-ON Performing Organization Address City/[facility] Code Phon e Number POWERCHART (ABNORMAL) BMP (Basic Metabolic Panel) (04/11/2016 9:53 AM CDT) Patholo gist Method Time Signature Sodium, S 144 135 - 145 POWERCHART MMOLL Potassium, S 5.2 (H) 3.5 - 5.1 POWERCHART MMOLL Chloride, S 111 (H) 98 - 107 POWERCHART MMOLL CO2 Total 19 (L) 22 - 29 POWERCHART MMOLL Glucose 147 (H) 70 - 140 POWERCHART MGDL BUN (Blood Urea 23 6 - 24 MGDL POWERCHART Nitrogen), S Creatinine 1.0 0.8 - 1.3 POWERCHART MGDL Calcium, Total, 9.5 8.8 - 10.3 POWERCHART S MGDL Anion Gap 14 7 - 15 MMOLL POWERCHART HXeGFR (MDRD) >60.0 >=60.0 POWERCHART MLMINSA Comment: Results are in [...] Time Location / / Volume Laterality Blood 04/11/2016 9:53 AM CDT Nikia Mccoy M.D. LAB BLOOD ADD-ON Performing Organization Address City/State/ZIP Code Phon e Number POWERCHART documented in this encounter Visit Diagnoses Not on filedocumented in this encounter
--- OUTSIDE RECORDS SUMMARY | 2022-05-24 18:27 | XMS_ITS | Encounter Summary ---
:1945 Author Organization [facility] Address [address] [place] [address] Care Team Providers Name Role Phone Unavailable Primary Care Provider Unavailable Encounter Details Date Type Department Care Team Description 12/02/[address] [facility] [place] Cathy Rosenthal M.D. Social History Tobacco Use [...] Sign Reading Time Taken Comments Blood Pressure 136/72 12/02/2015 9:58 AM CDT Pulse 64 12/02/2015 9:58 AM CDT Temperature - - Respiratory Rate 20 12/02/2015 9:58 AM CDT Oxygen Saturation - - Inhaled Oxygen Concentration - - Weight 115 kg (252 lb 10.4 oz) 12/02/2015 9:58 AM CDT Height 174 cm (5' 8.5) 12/02/2015 9:58 AM CDT Body Mass Index 37.85 12/02/2015 9:58 AM CDT documented in this encounter Medications [...] as of this encounter Progress Notes Cathy Frias M.D. - 12/02/2015 9:46 AM CDT FM-LE CHIEF COMPLAINT\REASON FOR VISIT A 70-year-old male here for diabetes check. He also had an elevated protein and so he gave us another 1 and he wants to know how that worked out. He said the last time he was not drinking as much and he thought that they urine was really concentrated last time, it was 353, this time it is 178, still more than we would like to see but he defers nephrology at this point. He does not want to do diabeticeducation either. He wants a food plan that is very specific. He also needs a refill of Lidex. He says his sugars are all over the place when he gets up, they are anywhere between 70 and 180 and in theafternoon if he has a snack, it can be over 200. Otherwise they are usually 160. PAST MEDICAL/SURGICAL HISTORY PAST MEDICAL HISTORY: Diabetes. Hypertension. Proteinuria. Acute myocardial infarction. Clq-yo-aabwdqau arrest. Arterial stent. Coronary artery disease. Gout. Hypertension. Hyperlipidemia. History of Helicobacter pylori infection. Chronic pancreatitis. Skin cancer. He had colonoscopy in 2012, gastroscopy same time. Colonoscopy in 2007. Excision of calcaneal spur 2006. FAMILY HISTORY Mother had brain tumor. Three brothers had cataracts, 1 brother had coronary artery disease. Four brothers and a sister have diabetes. GERD in a sister. Glaucoma in a brother. Kidney stone in a brother. Pacemaker in a brother. Stroke in a brother. SOCIAL HISTORY He is not a smoker. Drinks coffee daily. He is here with his . MEDICATIONS Albuterol CSC free metered-dose inhaler 2 puffs every 4 hours as needed. Allopurinol 100 mg 1 tab twice a day. Creon 36,000 units, 2 capsules 3 times a day. EpiPen as needed. Fish oil 1000 mg 3 times a day. Gas-X 80 mg as needed. Gemfibrozil 600 mg twice a day. Humalog 75/25, 70 units in the a.m. and 70 units in the p.m. Indomethacin 25 mg 3 times a day as needed gout. Kenalog Orabase 0.1% mucous membrane paste 4 times a day for tooth pain. Lidex 0.05% topical solution twice a day as needed psoriasis. Lisinopril 5 mg daily. Lubricating topical gel twice a day. Metformin 500 mg daily extended release. Metoprolol 25 mg half tab twice a day. Nitroglycerin as needed chest pain. Pepto-Bismol as needed. Phenylephrine 0.5% nasal spray as needed allergy. Phenylephrine hydrochloride 10 mg every 4 hours as needed allergies. Saline nasal spray as needed. ALLERGIES ADHESIVE BANDAGES. ASPIRIN. BEE STINGS. CLINDAMYCIN. LIPITOR. PENICILLIN. SYSTEMS REVIEW ENT: In the morning, he has phlegm in his throat. GI: Gets gassy with vegetables and we discussed the simethicone or Gas-X. : No dysuria or hematuria. MUSCULOSKELETAL: He feels it when the weather changes. NEURO: His feet are tingly. PSYCH: No depression or anxiety. Remainder of 11 point review of systems negative. VITAL SIGNS Blood pressure 136/72, pulse 64, respirations 20, temp 36.9. Weight 114.6 kg. Height 174 cm. PHYSICAL EXAMINATION CHEST: Clear to auscultation bilaterally. CARDIOVASCULAR: Regular rate and rhythm. No murmur. IMPRESSION/REPORT/PLAN 1. Diabetes. 2. Hypertension. 3. Proteinuria. PLAN: Suggested Gas-X for his gassiness. His last hemoglobin A1c was about 3 months ago so we are going to get that checked again in 3 months. Refill his Lidex. Use diet and his insulin to try to control his diabetes better so he does not have worsening proteinuria. He should return in 3 months or as needed. Total time spent was 30 minutes, with 25 minutes in counseling and coordination of care. Cathy Frias M.D./pos Electronically Signed By: CATHY FRIAS MD On: 12/13/2015 05:32 PM Source: [facility] MHSDOLBEYNONRADSYS Document Id: [id number] documented in this encounter Miscellaneous Notes Miscellaneous - Sharlene Ortiz Blade - 01/25/2016 1:[address] Frias-Pt needs ED f/u for extreme abdimonal pain 2-4 days Document Contains Addenda Addendum by TERESITA TONEY RN on January 25, 2016 15:[address] frias, patient is scheduled to see you on 01/27/16 at 1430. pateint is aware. Addendum by TERESITA TONEY RN on January 25, 2016 14:21:56 CDT From: TERESITA TONEY RN ([facility] Nurse) To: CATHY FRIAS MD; Sent: 01/25/2016 14:21:56 CDT Subject: FW: Dr. Frias-Pt needs ED f/u for extreme abdimonal pain 2-4 days see message below. you have nothing available this week to see patient, unless you wanted to see pateint Monday in [place] when you hospitalist? or double book sometime? only openings in schedule are with Ellen this week. From: SHARLENE ORTIZ To: [facility] Nurse; Sent: 01/25/2016 13:43:53 CDT Subject: Dr. Frias-Pt needs ED f/u for extreme abdimonal pain 2-4 days If you need a prescription refill please call your pharmacy. Please allow 3 business days for processing. Call Center Template: ?? May we leave a message for you on this phone? yes ?? What can I help you with today?Pt needs ED f/u for extreme abdimonal pain 2-[address] Callejas is currently booked untill 02/01. Pt was wondering if there was anyway Dr. Callejas would see pt this week. Pt is still experiencing pain and the ED didn't know what was wrong. Please give pt a call with answer. ?? If Medication Refill: o What is the medication? o What pharmacy do you use? o Have you contacted your pharmacy regarding this request? I will send this information to the appropriate staff member who will look into your concern. If thenurse needs to talk to you he or she will call you back within two hours. Thank you for calling [facility]. Source: [facility] POWERCHART Document Id: [id number] Miscellaneous - Cathy Frias M.D. - 12/02/2015 10:56 AM CDT Ambulatory Patient Summary [address] [id number] Visit Information Name: [facility] Number: [id number] Current Date: 12/02/2015 10:56:22 Physicians Attending Provider: CATHY FRIAS MD Primary Care Provider: CATHY FRIAS MD [address] has been given the [...] subsalicylate (Pepto-Bismol) Oral, as needed upset stomach emollients, topical (Lubricating Jelly topical gel) 1 cecile, Topical, two times a day EPINEPHrine (EpiPen 2-Yves 0.3 mg injectable kit) 0.3 mg, Intramuscular, once fluocinonide topical (Lidex 0.05% topical solution) 1 cecile, Topical, two times a day Routed to [address] [address] gemfibrozil (gemfibrozil 600 mg oral tablet) 1 Tablet(s), Oral, two times a day indomethacin (indomethacin 25 mg oral capsule) 1 cap, Oral, three times a day as needed for Pain Take with food insulin lispro protamine-insulin lispro (Humalog Mix 75/25 subcutaneous suspension) See [id number] am and 70 pm lisinopril (lisinopril 5 mg oral tablet) 1 [...] cap, Oral, three times a day phenylephrine (phenylephrine hydrochloride 10 mg oral tablet) 1 Tablet(s), Oral, every 4 hours as needed for allergies phenylephrine nasal (phenylephrine 0.5% nasal spray) as needed for allergies simethicone (Gas-X) 80 mg, , as needed sodium chloride nasal (Saline Nasal Mist nasal spray) 2 Mccune(s), Nostrils(Both), four times a day as needed for Dry nasal passages triamcinolone topical (Kenalog in Orabase 0.1% mucous membrane paste) 1 cecile, Topical, four times a day as needed for tooth pain Stop Taking the Following Medications: Medication list as of 12-02-15 10:56 Attention: If you have any medications at home that are not on this list, DO NOT take them until youcontact your provider for clarification. Give a copy of your medication list to your primary care provider. Update your medication list any time medications or doses are changed and carry your medication list at all times in case of emergency. Electronically Signed By: CATHY FRIAS MD Signed On:02-DEC-2015 10:56:07 Your Allergies & Intolerances Substance Reaction Symptoms [...] Your Upcoming Appointments Date Time Location Provider 03/02/2016 09:30 [facility] 08/09/2016 12:45 [facility]/Hep Efrain Ellison MD Attention: Contact your [...] if you dont have one. Go to [email or web address] and click on Create Your Account. Then, follow the directions to complete the online form. Youll be asked for your [facility] number which you can find at the top of this document. Your Goals/Additional instructions: Source: [facility] POWERCHART Document Id: [id number] Miscellaneous - Cathy Frias M.D. - 12/02/2015 10:56 AM CDT Ambulatory Discharge Medication List [place] - [address] [id number] Visit Information Name: A[facility] Number: [id number] Visit Date: 12/02/2015 10:56:21 Attending Provider: CATHY FRIAS MD Primary Care Provider: CATHY FRIAS MD [address] MJ has been given [...] subsalicylate (Pepto-Bismol) Oral, as needed upset stomach emollients, topical (Lubricating Jelly topical gel) 1 cecile, Topical, two times a day EPINEPHrine (EpiPen 2-Yves 0.3 mg injectable kit) 0.3 mg, Intramuscular, once fluocinonide topical (Lidex 0.05% topical solution) 1 cecile, Topical, two times a day Routed to [address] [address] gemfibrozil (gemfibrozil 600 mg oral tablet) 1 Tablet(s), Oral, two times a day indomethacin (indomethacin 25 mg oral capsule) 1 cap, Oral, three times a day as needed for Pain Take with food insulin lispro protamine-insulin lispro (Humalog Mix 75/25 subcutaneous suspension) See [id number] am and 70 pm lisinopril (lisinopril 5 mg oral tablet) 1 [...] cap, Oral, three times a day phenylephrine (phenylephrine hydrochloride 10 mg oral tablet) 1 Tablet(s), Oral, every 4 hours as needed for allergies phenylephrine nasal (phenylephrine 0.5% nasal spray) as needed for allergies simethicone (Gas-X) 80 mg, , as needed sodium chloride nasal (Saline Nasal Mist nasal spray) 2 Mccune(s), Nostrils(Both), four times a day as needed for Dry nasal passages triamcinolone topical (Kenalog in Orabase 0.1% mucous membrane paste) 1 cecile, Topical, four times a day as needed for tooth pain Stop Taking the Following Medications: Medication list as of 12-02-15 10:56 Attention: If you have any medications at home that are not on this list, DO NOT take them until youcontact your provider for clarification. Give a copy of your medication list to your primary care provider. Update your medication list any time medications or doses are changed and carry your medication list at all times in case of emergency. Electronically Signed By: CATHY FRIAS MD Signed On:02-DEC-2015 10:56:07 Additional Information: Yes - . Source: [facility] POWERCHART Document Id: [id number] Miscellaneous - Shirin Weeks L.P.N. - 12/02/2015 9:58 AM CDT Adult Cop Intake/History Adult Cop Intake/History Entered On: 12/02/2015 10:00 CDT Performed On: 12/02/2015 9:58 CDT by SHIRIN WEEKS LPN Intake Chief Complaint : follow up diabetes and results from urine Temperature Core : 36.9 DegC(Converted to: 98.4 DegF) Peripheral Pulse Rate : 64 /min Respiratory Rate : 20 /min Heart Rhythm : Regular Systolic Blood Pressure : 136 mmHg Diastolic Blood Pressure : 72 mmHg NIBP Mean : 93 mmHg BP Location : Left upper extremity Blood Pressure Cuff Size : Large Height : 174 cm(Converted to: 5 ft 9 inch(es), 69 inch(es)) Actual Weight : 114.6 kg(Converted to: 252 lb 10 oz) Weight Source : Standing scale Dosing Weight Clinic : 114.6 kg Clinic BSA : 2.35 Body Mass Index : 37.85 kg/m2 SHIRIN WEEKS LPN - 12/02/2015 9:58 CDT General Info Information Given By : Patient Preferred Communication Mode : Verbal Languages : [place] Is Patient Female and 13-50 no hysterectomy : No SHIRIN WEEKS LPN - 12/02/2015 9:58 CDT Subjective Pain Symptoms : No SHIRIN WEEKS LPN - 12/02/2015 9:58 CDT Dependent Habits Exposure to Tobacco Smoke : Other: non smoker Smoking Status : Never smoker Tobacco 2A : No Tobacco Use/Currently Using : No Tobacco Use/Last 30 Days : No Tobacco Use/Last 12 months : No SHIRIN WEEKS LPN - 12/02/2015 9:58 CDT Caffeine Use Grid Caffeine Use : Current Type : Coffee Frequency : Daily SHIRIN WEEKS LPN - 12/02/2015 9:58 CDT Source: [facility] [employer] Document Id: [id number] CDT!37 documented in this encounter Plan of Treatment Not on filedocumented as of this encounter Visit Diagnoses Not on filedocumented in this encounter
--- OUTSIDE RECORDS SUMMARY | 2022-05-24 18:27 | XMS_ITS | Encounter Summary ---
:1945 Author Organization [facility] Address [address] [place] [address] Care Team Providers Name Role Phone Cathy Mccoy M.D. Primary Care Provider Unavailable Reason for Visit Reason Comments Med Refill Encounter Details Date Type Department Care Team Description 08/31/2017 Refill Department of Family Medicine, Brenda Saba L.P.NKamila Med Refill [facility], in [place] [address] [place] [address] Social History Tobacco Use Types Packs/Day Years [...] or relatives? How often do you attend worship or More than 4 times per year 06/14/2019 anglican services? Do you belong to any clubs or Yes 06/14/2019 organizations such as worship groups, unions, fraternal or athletic groups, or [...] filedocumented in this encounter Care Teams Welding Tester Relationship Specialty Start Date End Date Cathy Mccoy M.D. PCP - General 02/23/17 12/18/19 documented as of this encounter
--- OUTSIDE RECORDS SUMMARY | 2022-05-24 18:27 | XMS_ITS | Encounter Summary ---
:1945 Author Organization [facility] Address [address] [place] [address] Care Team Providers Name Role Phone Cathy Mccoy M.D. Primary Care Provider Unavailable Reason for Visit Reason Comments Med Refill Encounter Details Date Type Department Care Team Description 08/31/2017 Refill Department of Family Medicine, Brenda Saba L.P.NKamila Med Refill [facility], in [place] [address] [place] [address] Social History Tobacco Use Types Packs/Day Years [...] on filedocumented in this encounter Care Teams President College [employer] Relationship Specialty Start Date End Date Cathy Mccoy M.D. PCP - General 02/23/17 12/18/19 documented as of this encounter
--- OUTSIDE RECORDS SUMMARY | 2022-05-24 18:27 | XMS_ITS | Encounter Summary ---
:1945 Author Organization [facility] Address [address] [place] [address] Care Team Providers Name Role Phone Cathy Mccoy M.D. Primary Care Provider Unavailable Reason for Visit Reason Comments Med Refill Encounter Details Date Type Department Care Team Description 08/28/2017 Refill Department of Family Medicine, Diana Overton L.PKamilaNKamila Med Refill [facility], in [address] [address] [place] [address] [place] [address] Social History Tobacco Use Types Packs/Day Years [...] More than 4 times per year 06/14/2019 shinto services? Do you belong to any clubs [...] filedocumented in this encounter Care Teams Silo Tender Relationship Specialty Start Date End Date Cathy Mccoy M.D. PCP - General 02/23/17 12/18/19 documented as of this encounter
--- OUTSIDE RECORDS SUMMARY | 2022-05-24 18:27 | XMS_ITS | Encounter Summary ---
:1945 Author Organization [facility] Address [address] [place] [address] Care Team Providers Name Role Phone Cathy Mccoy M.D. Primary Care Provider Unavailable Encounter Details Date Type Department Care Team Description 04/14/2017 Hospital Encounter [facility] [facility] Cathy Rosenthal M.D. Social History Tobacco Use [...] More than 4 times per year 06/14/2019 [facility]? Do you belong to any clubs [...] Sign Reading Time Taken Comments Blood Pressure 122/70 04/14/2017 9:26 AM CDT Pulse 72 04/14/2017 9:26 AM CDT Temperature - - Respiratory Rate 20 04/14/2017 9:26 AM CDT Oxygen Saturation - - Inhaled Oxygen Concentration - - Weight 114 kg (251 lb 1.7 oz) 04/14/2017 9:26 AM CDT Height 174 cm (5' 8.5) 04/14/2017 9:26 AM CDT Body Mass Index 37.62 04/14/2017 9:26 AM CDT documented in this encounter Medications at Time of Discharge Medication Sig Dispensed Refills Start Date End Date DOCOSAHEXANOIC ACID/EPA Take 1 capsule by 0 06/13 (FISH OIL ORAL) mouth 3 (three) times a day. When remembers EPINEPHrine Inject 0.3 mg 0 06/30/2014 (for_EPIPEN) 0.3 mg/0.3 intramuscularly once. mL injection syringe ibuprofen Take 2 tablets [...] needed. mcg/actuation inhaler allopurinol Take 1 tablet by mouth 0 03/06/2017 1 11/01/2016 (for_ZYLOPRIM) 100 mg 2 (two) times a day. tablet benzocaine 10 % liquid Apply 1 application 0 04/201608/15/2019 topically 4 (four) times a day. BISMUTH SUBSALICYLATE Take by mouth as 0 03/13/20 09 04/01/2019 ORAL needed. diphenhydrAMINE Take 25 mg by mouth as 0 04/14/20 17 06/09/2020 (for_BENADRYL) 25 mg needed. tablet fluocinonide Apply 1 application 0 12/02/201503/2018 (for_LIDEX) 0.05 % topically as needed. external solution gemfibrozil (for_LOPID) Take 1 tablet by mouth 0 09/05/2016 08/31/2017 600 mg tablet 2 (two) times a day. insulin lispro HumaLOG Mix 75/25 0 12/09/2016 protamin-lispro subcutaneous (HumaLOG Mix 75-25) 100 suspension See unit/mL (75-25) Instructions, 75 am injection and 75 pm E11.9, 60 mL, 4 Refill(s) insulin lispro HumaLOG Mix 75/25 0 04/14/2017 protamin-lispro subcutaneous (HumaLOG Mix 75-25) 100 suspension See unit/mL (75-25) Instructions, 75 am injection and 75 pm E11.9, 60 mL, 4 Refill(s) nnltrl-vqaonoss-seqsirw Take 2 capsules by 0 03/1211/08/2017 (for_CREON) mouth 3 (three) times 24,000-76,000-120,000 a day. Unit per capsule lisinopril Take 1 tablet by mouth 0 09/05/2016 (for_PRINIVIL,ZESTRIL) daily. 5 mg tablet metFORMIN XR Take 1 tablet by mouth 0 12/14/2016 11/29/2017 (for_GLUCOPHAGE-XR) 500 daily. mg 24 hr tablet metoprolol tartrate Take 0.5 tablets by 0 016 08/31/2017 (for_LOPRESSOR) 25 mg mouth 2 (two) times a tablet day. nitroglycerin Place 1 tablet under 0 04/14/2017 0 10/18/2017 (for_NITROSTAT) 0.4 mg the tongue every 5 SL tablet (five) minutes as needed. VITAMIN E ACETATE Take 1 capsule by 0 04/04/2017 03/29/2018 (VITAMIN E ORAL) mouth daily. documented as of this encounter Progress Notes Cathy Mccoy M.D. - 04/14/2017 9:18 AM CDT [id number] CHIEF COMPLAINT/REASON FOR VISIT He is a 72-year-old male who is following up for diabetes. He also has a lesion on his right aleman. Evidently, he hit a piece of machinery 3 weeks ago. There was no rickie, but there was some pain. Four to five days later, he got some eschar and now there is red area around that. It is still mild tender. We marked that area. He also has a scrape on his left leg from 2 days ago, but that is not as pink. PAST MEDICAL/SURGICAL HISTORY Acute myocardial infarction with cardiac arrest. Arterial stent. Coronary artery disease. Chronic pancreatitis due to Cardiac arrest. Diabetes type 2. Gout. Hypertension. Hyperlipidemia. Infection with Helicobacter pylori. Proteinuria. Skin cancer. Colonoscopy in 2013. Gastroscopy at the same time. Colonoscopy 2008. Excision of a calcaneal spur in 2006. FAMILY HISTORY Mother had a brain tumor. Three brothers had cataracts. Brother had coronary artery disease. Four brothers and a sister had diabetes, GERD. Sister has glaucoma, brother. Kidney stone, brother. Pacemaker in a brother. Stroke, brother. SOCIAL HISTORY He is a nonsmoker. Drinks coffee daily. MEDICATIONS Albuterol metered-dose inhaler 2 puffs every 4 hours as needed. Allopurinol 100 mg daily. Anbesol liquid 1 application as needed. Benadryl 25 mg as needed. EpiPen. He has that for an allergy to bee stings, but he has been stung multiple times since he was originally having an allergic reaction. That was when he was stung all at once by many bees. So they deferred getting the EpiPen refilled. Fish oil 1000 mg, 1 tab 3 times a day. Gas-X 80 mg as needed. Gemfibrozil 600 mg twice a day. Humalog mix 75/25, 75 in the morning and 75 in the p.m. Ibuprofen 200 mg 2 tabs every 4 hours as needed. Lidex solution 1 application topical twice a day . Lisinopril 5 mg daily. Metformin 500 mg extended release 1 tab daily. Metoprolol 25 mg one-half tab twice a day. Nitroglycerin as needed. Pancrelipase 24,000 units, 76,000 units, 120,000 units oral delayed release capsule, 2 tabs 3 times a day. Pepto-Bismol as needed. Phenylephrine nasal spray as needed. Nasal saline as needed. Vitamin E 400 international units daily. ALLERGIES Adhesive bandage. Aspirin. Bee stings as mentioned above. Clindamycin. Lipitor. Penicillin. SYSTEMS REVIEW He saw Dr. Ellison 2 weeks ago, who put him on vitamin E and he is getting better balance from that. He was told he does not need an MRI, unlikely to get recurrent cancer, but he was low on E and took supplement, within 2 to 3 days felt much better. He says for 3 to 4 nights he got up to stool and he couldnot go back to sleep at all. He has neuropathy in his feet. Dry skin. He puts hand cream on wrists and feet weekly. He says he likes soaking in the tub and it makes him feel comfortable. ENDOCRINE: He says he is opposite of his with temperature regards. PSYCHOLOGICAL: Depressed at times, but doesnot want any medication or counseling. VITAL SIGNS Blood pressure 122/70, pulse 72, respirations 20, temp 36.4, weight 113.9 kg. Height 174 cm. IMPRESSION/REPORT/PLAN Cellulitis, right leg. Diabetes. Hypertension. Hyperlipidemia. PLAN: We are going to check labs in 6 months to include basic metabolic panel, hemoglobin A1c, lipidpanel, microalbumin, and AST. Refilled medication that was needed and started him on Keflex 500 mg 4times a day for the area that looks infected. He should come back in 6 months. ADMINISTRATIVE BILLING Total time spent was 35 minutes, with 30 minutes in counseling, coordination of care. Cathy Mccoy M.D./pos Electronically Signed By: CATHY MCCOY MD On: 04/20/2017 04:35 PM Modified by and Electronically Signed by: CATHY MCCOY MD On: 04/20/2017 04:35 PM Source: [facility] MHSDOLBEYNONRADSYS Document Id: [id number] documented in this encounter Miscellaneous Notes Miscellaneous - Cathy Mccoy M.D. - 04/14/2017 10:13 AM CDT Ambulatory Patient Summary [place] - [address] [id number] Visit Information Name: [address] Number: [id number] Current Date: 04/14/2017 10:13:47 Physicians Attending Provider: CATHY MCCOY MD Primary Care Provider: CATHY MCCOY MD [address] has been given the following list of [...] for Shortness of Breath allergic triggered asthma Routed to [address] [place] [address] allopurinol (allopurinol 100 mg oral tablet) 1 Tablet(s), Oral, two times a day benzocaine topical (Anbesol Liquid) 1 cecile, Topical, as needed bismuth subsalicylate (Pepto-Bismol) Oral, as needed upset stomach cephalexin (cephalexin 500 mg oral tablet) 1 Tablet(s), Oral, four times a day x 10 day(s) New Routed to [address] [place] [address] diphenhydrAMINE (Benadryl) 25 mg, Oral, as needed EPINEPHrine (EpiPen 2-Yves 0.3 mg injectable kit) 0.3 mg, Intramuscular, once fluocinonide topical (Lidex 0.05% topical solution) 1 cecile, Topical, two times a day gemfibrozil (gemfibrozil 600 mg oral tablet) 1 Tablet(s), Oral, two times a day ibuprofen (ibuprofen 200 mg oral tablet) 2 Tablet(s), Oral, every 4 hours as needed for Pain / FeverTake with food insulin lispro protamine-insulin lispro (HumaLOG Mix 75/25 subcutaneous suspension) See [id number] am and 75 pm E11.9 Routed to [place] [id number] lisinopril (lisinopril 5 mg oral tablet) 1 Tablet(s), Oral, once a day metFORMIN (metFORMIN 500 mg oral tablet, extended release) 1 Tablet(s), Oral, once a day metoprolol (metoprolol tartrate 25 mg oral tablet) 0.5 Tablet(s), Oral, two times a day nitroglycerin (nitroglycerin 0.4 mg sublingual tablet) 1 Tablet(s), Sublingual, every 5 minutes as needed for Chest Pain This is a CHANGE Routed to [address] [address] omega-3 polyunsaturated fatty acids (Fish Oil 1000 mg oral capsule) 1 cap, Oral, three times a day pancrelipase (pancrelipase 24,000 units-76,000 units-120,000 units oral delayed release capsule) 2 cap, Oral, three times a day phenylephrine nasal (phenylephrine 0.5% nasal spray) as needed for allergies simethicone (Gas-X) 80 mg, , as needed sodium chloride nasal (Saline Nasal Mist nasal spray) 2 [place](s), Nostrils(Both), four times a day as needed for Dry nasal passages vitamin E (vitamin E 400 intl units oral capsule) 1 cap, Oral, once a day Stop Taking the Following Medications: Medication list as of 04-14-17 10:13 Attention: If you have any medications at [...] Electronically Signed By: CATHY MCCOY MD Signed On:14-APR-2017 10:13:40 Your Allergies & Intolerances Substance Reaction Symptoms [...] Your Upcoming Appointments Date Time Location Provider 03/29/2018 10:00 [facility]/Hep Efrain Ellison MD Attention: Contact your local [...] if you dont have one. Go to [email or web address] and click on Create Your Account. Then, follow the directions to complete the online form. Youll be asked for your [facility] number which you can find at the top of this document. Your Goals/Additional instructions: Source: [facility] POWERCHART Document Id: [id number] Miscellaneous - Cathy Mccoy M.D. - 04/14/2017 10:13 AM CDT Ambulatory Discharge Medication List [place] - [facility] [address] [place] [id number] Visit Information Name: [address] Number: [id number] Current Date: 04/14/2017 10:13:46 Attending Provider: CATHY MCCOY MD Primary Care [...] for Shortness of Breath allergic triggered asthma Routed to [address] [address] allopurinol (allopurinol 100 mg oral tablet) 1 Tablet(s), Oral, two times a day benzocaine topical (Anbesol Liquid) 1 cecile, Topical, as needed bismuth subsalicylate (Pepto-Bismol) Oral, as needed upset stomach cephalexin (cephalexin 500 mg oral tablet) 1 Tablet(s), Oral, four times a day x 10 day(s) New Routed to [address] [address] diphenhydrAMINE (Benadryl) 25 mg, Oral, as needed EPINEPHrine (EpiPen 2-Yves 0.3 mg injectable kit) 0.3 mg, Intramuscular, once fluocinonide topical (Lidex 0.05% topical solution) 1 cecile, Topical, two times a day gemfibrozil (gemfibrozil 600 mg oral tablet) 1 Tablet(s), Oral, two times a day ibuprofen (ibuprofen 200 mg oral tablet) 2 Tablet(s), Oral, every 4 hours as needed for Pain / FeverTake with food insulin lispro protamine-insulin lispro (HumaLOG Mix 75/25 subcutaneous suspension) See [id number] am and 75 pm E11.9 Routed to [address] [address] lisinopril (lisinopril 5 mg oral tablet) 1 Tablet(s), Oral, once a day metFORMIN (metFORMIN 500 mg oral tablet, extended release) 1 Tablet(s), Oral, once a day metoprolol (metoprolol tartrate 25 mg oral tablet) 0.5 Tablet(s), Oral, two times a day nitroglycerin (nitroglycerin 0.4 mg sublingual tablet) 1 Tablet(s), Sublingual, every 5 minutes as needed for Chest Pain This is a CHANGE Routed to [address] [address] omega-3 polyunsaturated fatty acids (Fish Oil 1000 mg oral capsule) 1 cap, Oral, three times a day pancrelipase (pancrelipase 24,000 units-76,000 units-120,000 units oral delayed release capsule) 2 cap, Oral, three times a day phenylephrine nasal (phenylephrine 0.5% nasal spray) as needed for allergies simethicone (Gas-X) 80 mg, , as needed sodium chloride nasal (Saline Nasal Mist nasal spray) 2 [place](s), Nostrils(Both), four times a day as needed for Dry nasal passages vitamin E (vitamin E 400 intl units oral capsule) 1 cap, Oral, once a day Stop Taking the Following Medications: Medication list as of 04-14-17 10:13 Attention: If you have any medications at [...] Electronically Signed By: CATHY MCCOY MD Signed On:14-APR-2017 10:13:40 Additional Information: Yes - . Source: [facility] POWERCHART Document Id: [id number] Miscellaneous - Shirin Keen L.P.N. - 04/14/2017 9:26 AM CDT Adult Scarfer Operator Intake/History Adult Scarfer Operator Intake/History Entered On: 04/14/2017 9:29 CDT Performed On: 04/14/2017 9:26 CDT by SHIRIN KEEN LPN Intake Chief Complaint : follow up diabetes Temperature Core : 36.4 DegC(Converted to: 97.5 DegF) (LOW) Peripheral Pulse Rate : 72 /min Respiratory Rate : 20 /min Heart Rhythm : Regular Systolic Blood Pressure : 122 mmHg Diastolic Blood Pressure : 70 mmHg NIBP Mean : 87 mmHg BP Location : Left upper extremity Blood Pressure Cuff Size : Large Height : 174 cm(Converted to: 5 ft 9 inch(es), 69 inch(es)) Actual Weight : 113.9 kg(Converted to: 251 lb 2 oz) Weight Source : Standing scale Dosing Weight Clinic : 113.9 kg Clinic BSA : 2.35 Body Mass Index : 37.62 kg/m2 SHIRIN KEEN LPN - 04/14/2017 9:26 CDT General Info Information Given By : Patient, Spouse Preferred Communication Mode : Verbal Languages : Sami Is Patient Female and 13-50 no hysterectomy : No SHIRIN KEEN LPN - 04/14/2017 9:26 CDT Subjective Pain Symptoms : SHIRIN Hawkins LPN - 04/14/2017 9:26 CDT Dependent Habits Exposure to Tobacco Smoke : Other: non smoker Smoking Status : Never smoker Tobacco 2A : No Tobacco Use/Currently Using : No Tobacco Use/Last 30 Days : No Tobacco Use/Last 12 months : No SHIRIN KEEN LPN - 04/14/2017 9:26 CDT Caffeine Use Grid Caffeine Use : Current Type : Coffee Frequency : Daily SHIRIN KEEN LPN - 04/14/2017 9:26 CDT Source: [employer] Document Id: [id number] CDT!37 Miscellaneous - Shirin Keen L.P.[place] - 04/11/2017 8:48 AM CDT Quality Measures Quality Measures Entered On: 04/14/2017 8:49 CDT Performed On: 04/11/2017 8:48 CDT by SHIRIN KEEN LPN Diabetes Date of Last Eye Exam : 04/11/2017 CDT SHIRIN KEEN LPN - 04/14/2017 8:48 CDT Source: [employer] Document Id: [id number] CDT!3 documented in this encounter Plan of Treatment Not on filedocumented as of this encounter Visit Diagnoses Not on filedocumented in this encounter Care Teams Signal System Testing Maintainer Relationship Specialty Start Date End Date Cathy Mccoy M.D. PCP - General 02/23/17 12/18/19 documented as of this encounter
--- OUTSIDE RECORDS SUMMARY | 2022-05-24 18:27 | XMS_ITS | Encounter Summary ---
:1945 Author Organization [facility] Address [address] [place] [address] Care Team Providers Name Role Phone Unavailable Primary Care Provider Unavailable Encounter Details Date Type Department Care Team Description 04/12/2016 Hospital Encounter [place] [facility] [place]athy Rosenthal M.D. Social [...] More than 4 times per year 06/14/2019 hoahaoism services? Do you belong to any clubs [...] Sign Reading Time Taken Comments Blood Pressure 134/78 04/12/2016 9:26 AM CDT Pulse 64 04/12/2016 9:26 AM CDT Temperature - - Respiratory Rate 22 04/12/2016 9:26 AM CDT Oxygen Saturation - - Inhaled Oxygen Concentration - - Weight 112 kg (246 lb 14.6 oz) 04/12/2016 9:26 AM CDT Height 174 cm (5' 8.5) 04/12/2016 9:26 AM CDT Body Mass Index 36.99 04/12/2016 9:26 AM CDT documented in this encounter [...] encounter Progress Notes Cathy Mccoy M.D. - 04/12/2016 9:19 AM CDT [id number] CHIEF COMPLAINT/REASON FOR VISIT A 71-year-old male here with his , for diabetic a check and he has had proteinuria. He has also had some shortness of breath especially with the hot weather. He has had 3 to 4 weeks of the shortness of breath. It started out with a head cold and a lot of mucus, then it went down to his lungs and he does not feel like he is breathing as well. He has not had any fevers, has light to medium yellow phlegm, but it is kind of foamy now as it was clumpy. The hot weather and humidity makes it worse. He has not had any chest pain. He has already had labs done and his potassium was a little bit elevated at 5.2, chloride 111, sodium 144, glucose 147, creatinine 1, calcium 9.5. His hemoglobin A1c was 6.6.His urine albumin was 116. Previously it was 178 and 353, so obviously he is doing better on his diabetes and hypertension. He did complain of some leg cramps and charley horses and it could be becauseof the elevated potassium. He says his feet are getting more numb and healing takes longer of his skin. He does also have a tiny dark spot on his left neck at his collarbone. They wondered if we neededto biopsy that, it is very small. PAST MEDICAL/SURGICAL HISTORY Past medical history: Diabetes. Acute myocardial infarction where he had an vhz-hc-zyskxbik cardiac arrest. Arterial stent. Coronary artery disease. Gout. Hypertension. Hyperlipidemia. Helicobacter pylori infection. Chronic pancreatitis. Proteinuria. Skin cancer. A colonoscopy in 2012 and 2007, and gastroscopy in 2012. Excision of calcaneal spur in 2006. FAMILY HISTORY Mother had a brain tumor. Three brothers have had cataracts, 1 brother had coronary artery disease. Four brothers and a sister have had diabetes, a sister has GERD, a brother has glaucoma, a brother has kidney stones, a brother has a pacemaker, and brother had a stroke. It is quite a large family. SOCIAL HISTORY He has never smoked. His did though. Drinks coffee daily. MEDICATIONS Allopurinol 100 mg twice a day. Creon 36,000, 2 tabs 3 times a day. EpiPen as needed. Fish oil 1000 mg 3 times a day. Gas-X 80 mg as needed. Gemfibrozil 600 mg twice a day. Humalog 75/25, 70 in the morning and 70 in the p.m.. Lidex twice a day as needed. Lisinopril 5 mg daily. Metformin 500 mg extended release 1 tab daily. Metoprolol 25 mg half tab twice a day. Nitroglycerin as needed. Pepto-Bismol as needed. Phenylephrine 0.5% nasal spray as needed. Saline nasal mist. ALLERGIES Adhesives. Bandages. Aspirin. Bee stings. Clindamycin. Lipitor. Penicillin. SYSTEMS REVIEW Review of systems discussed in HPI. Remainder negative. PHYSICAL EXAMINATION VITAL SIGNS: Blood pressure 134/78, pulse 64, respirations 22, temp 36.5, weight 112.0 kg, height 174 cm. HEENT: Tympanic membranes are clear. Oropharynx is nonerythematous. He has right maxillary sinus tenderness that is worse than his right ethmoid sinus tenderness. The left side is nontender. Oropharynxis nonerythematous. NECK: Supple without lymphadenopathy or thyromegaly. CHEST: Clear to auscultation bilaterally. CARDIOVASCULAR: Regular rate and rhythm. No murmur. EXTREMITIES: Without edema. IMPRESSION/REPORT/PLAN 1. Diabetes. 2. Proteinuria. 3. Acute maxillary sinusitis. PLAN: We are going to do a Z-Yves and refill x1 for his sinuses as they are harder to get control of,refilled his albuterol metered-dose inhaler as he does not have one right now that he can use, refilled other medicines. He should return in 6 months and at that time we will recheck his urine and hemoglobin A1c, also cholesterol. Refill any meds as needed. ADMINISTRATIVE BILLING Total time spent was 30 minutes with 25 minutes in counseling, coordination of care. Cathy Mccoy M.D./pos Electronically Signed By: CATHY MCCOY MD On: 04/19/2016 03:40 PM Source: [facility] [id number] Document Id: [id number] documented in this encounter Nursing Notes Cathy Mccoy M.D. - 04/12/2016 10:04 AM CDT Ambulatory Patient Education The following Patient Education Materials have been given to the patient: Patient Education Materials: Otolaryngology Causes of Sinusitis Otolaryngology Causes of Sinusitis Mucus helps keep your sinuses clean. But mucus may build up in the sinuses due to colds, allergies, or obstructions. These things interfere with the natural drainage of mucus. This may lead to sinusitis (sinus inflammation and infection). Acute sinusitis comes on suddenly. It often happens right afteran upper respiratory infection, such as a cold. Chronic sinusitis is ongoing swelling of the sinus lining. This is often the result of allergies or chronic infections. Colds and Other Infections A cold or flu may cause your sinus and nasal linings to swell. Sinus openings can become blocked. This causes mucus to back up. This backed-up mucus becomes a perfect place for bacteria to grow. Thick,yellow, or discolored mucus is one sign of infection. Allergic Reactions You may be sensitive to certain substances. This causes the release of histamine in the body. Histamine makes your sinus and nasal linings swell. Long-term swelling clogs your sinuses. It prevents the cilia (tiny hairs in the nasal lining) from sweeping away mucus. Allergy symptoms can be persistent. But theyre less severe than with colds. Obstructions ?? A polyp is a sac of swollen tissue. It can be the result of an allergy or infection. It may blockthe middle meatus (the opening where most of your sinuses drain). It may even grow large enough to block your nose. ?? A deviated septum is when the thin wall inside your nose is pushed to one side. It is often the result of injury. This can block your middle meatus. ?? 137[address] [place] [address]. All rights reserved. This information is not intended as a substitute for professional medical care. Always follow your healthcare professional's instructions. This document has images extracted. Please consider using [employer] for all your patient education needs. Source: [facility] POWERCHART Document Id: [id number] documented in this encounter Miscellaneous Notes Miscellaneous - Cathy Mccoy M.D. - 04/12/2016 10:04 AM CDT Ambulatory Patient Summary [place] [facility] [address] [place] [address] [id number] Visit Information Name: [facility] Number: [id number] Current Date: 04/12/2016 10:04:21 Physicians Attending Provider: CATHY MCCOY MD Primary [...] for Shortness of Breath allergic triggered asthma This is a CHANGE Routed to [address] [place] [address] allopurinol (allopurinol 100 mg oral tablet) 1 Tablet(s), Oral, two times a day azithromycin (Azithromycin 5 Day Dose Pack 250 mg oral tablet) 2 tablets on day 1, then 1 tablet on days 2-5, Oral, as directed x 5 day(s) New Routed to [address] [place] [address] bismuth subsalicylate (Pepto-Bismol) Oral, as needed upset stomach EPINEPHrine (EpiPen 2-Yves 0.3 mg injectable kit) 0.3 mg, Intramuscular, once fluocinonide topical (Lidex 0.05% topical solution) 1 cecile, Topical, two times a day gemfibrozil (gemfibrozil 600 mg oral tablet) 1 Tablet(s), Oral, two times a day insulin lispro protamine-insulin lispro (HumaLOG Mix 75/25 subcutaneous suspension) See [id number] am and 70 pm E11.[address]ed to [address] [address] lisinopril (lisinopril 5 mg oral tablet) 1 Tablet(s), Oral, once a day metFORMIN (metFORMIN 500 mg oral tablet, extended release) 1 Tablet(s), Oral, once a day Routed to [address] [place] [address] metoprolol (metoprolol 25 mg oral tablet) 0.5 [...] nasal (Saline Nasal Mist nasal spray) 2 Hartland(s), Nostrils(Both), four times a day as needed for Dry nasal passages Stop Taking the Following Medications: Medication list as of 04-12-16 10:04 Attention: If you have any medications at [...] Electronically Signed By: CATHY MCCOY MD Signed On:12-APR-2016 10:03:53 Your Allergies & Intolerances Substance Reaction Symptoms [...] Appointments Date Time Location Provider 08/09/2016 12:45 [facility] Efrain Ellison MD Attention: Contact your local Clinic if further appointment detail needed. Causes of Sinusitis Mucus helps keep your sinuses clean. But mucus may build up in the sinuses due to colds, allergies, or obstructions. These things interfere with the natural drainage of mucus. This may lead to sinusitis (sinus inflammation and infection). Acute sinusitis comes on suddenly. It often happens right afteran upper respiratory infection, such as a cold. Chronic sinusitis is ongoing swelling of the sinus lining. This is often the result of allergies or chronic infections. Colds and Other Infections A cold or flu may cause your sinus and nasal linings to swell. Sinus openings can become blocked. This causes mucus to back up. This backed-up mucus becomes a perfect place for bacteria to grow. Thick,yellow, or discolored mucus is one sign of infection. Allergic Reactions You may be sensitive to certain substances. This causes the release of histamine in the body. Histamine makes your sinus and nasal linings swell. Long-term swelling clogs your sinuses. It prevents the cilia (tiny hairs in the nasal lining) from sweeping away mucus. Allergy symptoms can be persistent. But theyre less severe than with colds. Obstructions ?? A polyp is a sac of swollen tissue. It can be the result of an allergy or infection. It may blockthe middle meatus (the opening where most of your sinuses drain). It may even grow large enough to block your nose. ?? A deviated septum is when the thin wall inside your nose is pushed to one side. It is often the result of injury. This can block your middle meatus. ?? 4037[address]339 [place] [address]. All rights reserved. This information is not [...] if you dont have one. Go to [email or web address] and click on Create Your Account. Then, follow the directions to complete the online form. Youll be asked for your [facility] number which you can find at the top of this document. Your Goals/Additional instructions: This document has images extracted. Please consider using [employer] for all your patient education needs. Source: [facility] POWERCHART Document Id: [id number] Miscellaneous - Cathy Mccoy M.D. - 04/12/2016 10:04 AM CDT Ambulatory Discharge Medication List [address] [id number] Visit Information Name: [facility] Number: [id number] Visit Date: 04/12/2016 10:04:20 Attending Provider: CAHTY MCCOY MD Primary Care Provider: CATHY MCCOY [...] for Shortness of Breath allergic triggered asthma This is a CHANGE Routed to [address] [address] allopurinol (allopurinol 100 mg oral tablet) 1 Tablet(s), Oral, two times a day azithromycin (Azithromycin 5 Day Dose Pack 250 mg oral tablet) 2 tablets on day 1, then 1 tablet on days 2-5, Oral, as directed x 5 day(s) New Routed to [address] [address] bismuth subsalicylate (Pepto-Bismol) Oral, as needed upset stomach EPINEPHrine (EpiPen 2-Yves 0.3 mg injectable kit) 0.3 mg, Intramuscular, once fluocinonide topical (Lidex 0.05% topical solution) 1 cecile, Topical, two times a day gemfibrozil (gemfibrozil 600 mg oral tablet) 1 Tablet(s), Oral, two times a day insulin lispro protamine-insulin lispro (HumaLOG Mix 75/25 subcutaneous suspension) See [id number] am and 70 pm E11.9 Routed to [address] [address] lisinopril (lisinopril 5 mg oral tablet) 1 Tablet(s), Oral, once a day metFORMIN (metFORMIN 500 mg oral tablet, extended release) 1 Tablet(s), Oral, once a day Routed to [address] [address] metoprolol (metoprolol 25 mg oral tablet) 0.5 [...] nasal (Saline Nasal Mist nasal spray) 2 Hartland(s), Nostrils(Both), four times a day as needed for Dry nasal passages Stop Taking the Following Medications: Medication list as of 04-12-16 10:04 Attention: If you have any medications at [...] Electronically Signed By: CATHY MCCOY MD Signed On:12-APR-2016 10:03:53 Additional Information: Yes - . Source: [facility] POWERCHART Document Id: [id number] Jose Hernandez C.M.A. - 04/12/2016 9:26 AM CDT Quality Measures Quality Measures Entered On: 04/12/2016 9:26 CDT Performed On: 04/12/2016 9:26 CDT by JOSE GARCIA Diabetes Date of Last Eye Exam : 04/08/2016 CDT JOSE GACRIA - 04/12/2016 9:26 CDT Source: [facility] Document Id: [id number] CDT!3 Amor - Jose Garcia C.M.A. - 04/12/2016 9:26 AM CDT Adult Community Associate Intake/History Adult Community Associate Intake/History Entered On: 04/12/2016 9:29 CDT Performed On: 04/12/2016 9:26 CDT by JOSE GARCIA Intake Chief Complaint : DM check, proturia. Pt has also been short of breath, especially with the hot weather. Temperature Core : 36.5 DegC(Converted to: 97.7 DegF) Peripheral Pulse Rate : 64 /min Respiratory Rate : 22 /min (HI) Heart Rhythm : Regular Systolic Blood Pressure : 134 mmHg Diastolic Blood Pressure : 78 mmHg NIBP Mean : 97 mmHg BP Location : Left upper extremity Blood Pressure Cuff Size : Large Height : 174 cm(Converted to: 5 ft 9 inch(es), 69 inch(es)) Actual Weight : 112.0 kg(Converted to: 246 lb 15 oz) Weight Source : Standing scale Dosing Weight Clinic : 112 kg Clinic BSA : 2.33 Body Mass Index : 36.99 kg/m2 JOSE GARCIA - 04/12/2016 9:26 CDT General Info Information Given By : Patient Preferred Communication Mode : Verbal Languages : Albanian Is Patient Female and 13-50 no hysterectomy : No JOSE GARCIA - 04/12/2016 9:26 CDT Subjective Pain Symptoms : No JOSE GARCIA - 04/12/2016 9:26 CDT Dependent Habits Exposure to Tobacco Smoke : Other: non smoker Smoking Status : Never smoker Tobacco 2A : No Tobacco Use/Currently Using : No Tobacco Use/Last 30 Days : No Tobacco Use/Last 12 months : No Alcohol Use : No JOSE GARCIA - 04/12/2016 9:26 CDT Caffeine Use Grid Caffeine Use : Current Type : Coffee Frequency : Daily JOSE GARCIA - 04/12/2016 9:26 CDT Source: [facility] Document Id: [id number] CDT!38 Miscellaneous - Jose Garcia, C.M.AKamila - 04/12/2016 9:25 AM CDT Health Assessment Health Assessment Entered On: 04/12/2016 9:26 CDT Performed On: 04/12/2016 9:25 CDT by JOSE GARCIA Health Assessment Complete Health Assessment Complete or Modified : Annual Health Assessment Annual Health Assessment Completed : Yes JSOE GARCIA - 04/12/2016 9:25 CDT Nutrition Nutrition Risk Factors by History Adult : None JOSE GARCIA - 04/12/2016 9:25 CDT Functional Current Daily Living Assistance : None JOSE GARCIA - 04/12/2016 9:25 CDT Dependent Habits Exposure to Tobacco Smoke : Other: non smoker Smoking Status : Never smoker Tobacco 2A : No Tobacco Use/Currently Using : No Tobacco Use/Last 30 Days : No Tobacco Use/Last 12 months : No Alcohol Use : No JOSE GARCIA - 04/12/2016 9:25 CDT Caffeine Use Grid Caffeine Use : Current Type : Coffee Frequency : Daily JOSE GARCIA - 04/12/2016 9:25 CDT Psychosocial Domestic Abuse Concerns : None Behavioral Health Screen/Safety Assmt : No Bahai Preference : No Bahai Affiliation JOSE GARCIA - 04/12/2016 9:25 CDT Advance Directive Advanced Directives : No Advance Directive Additional Information : No JOSE GARCIA - 04/12/2016 9:25 CDT Educ Needs Learning Style Preference Adult Grid Patient : None Family : None JOSE GARCIA - 04/12/2016 9:25 CDT Source: [facility] Document Id: [id number] CDT!32 documented in this encounter Plan of Treatment Not on filedocumented as of this encounter Visit Diagnoses Not on filedocumented in this encounter
--- OUTSIDE RECORDS SUMMARY | 2022-05-24 18:27 | XMS_ITS | Encounter Summary ---
:1945 Author Organization [facility] Address [address] [place] [address] Care Team Providers Name Role Phone Cathy Mccoy M.D. Primary Care Provider Unavailable Reason for Referral Outpatient (Routine) - Closed Specialty Diagnoses / Procedures Referred By Contact Refer red To Contact Cathy Mccoy M.D. Referral ID Status Reason Start Date Expiration Date Visits Requ ested Visits Authorized [id number] Closed 06/22/2017 12/19/2017 1 1 Outpatient (Routine) - Closed Specialty Diagnoses / Procedures Referred By Contact Refer red To Contact Kedar Ellison M.D. Referral ID Status Reason Start Date Expiration Date Visits Requ ested Visits Authorized [id number] Closed 06/22/2017 12/19/2017 1 1 Encounter Details Date Type Department Care Team Description 06/22/2017 Orders Only Department of Kedar Ellison, Hyperlipidemi a; Gastroenterology in [facility] Diab etes Mellitus Type 2 Without Complication (HCC); [place], [place] Hypertension NOS [address] [place], [place] [phone] Social History Tobacco Use Types [...] Order Schedule Diagnoses Gastroenterology office Outpatient Routine Expe cted: visit (clinic) Referral 03/29/2018 (Approximate), Expires: 04/02/2023 Family Medicine office Outpatient Routine Expec ann: visit (clinic) Referral 10/11/2017 (Approximate), Expires: 10/15/2022 documented as of this encounter Results (ABNORMAL) Microalbumin, Random, Urine (10/16/2017 11:07 AM SALES STOCK ASSOCIATE) Patholo gist Method Time Signature Microalbumin 174.0 mg/L 10/17/2017 [facility] 12:03 AM [facility] Creatinine 113 mg/dL 10/17/2017 [facility] 12:03 AM [facility] Albumin/Creatinin 154 (H) <17 mg/g 10/17/2017 [facility] e Ratio 12:03 AM [facility] Specimen Anatomical Collection Method Collection Time Receive d Time (Source) Location / / Volume Laterality Urine 10/16/2017 11:07 10/16/2017 AM SALES STOCK ASSOCIATE 11:36 PM SALES STOCK ASSOCIATE Cathy Mccoy M.D. LAB URINE ORDERABLES Performing Organization Address City/State/ZIP Code Phon e Number [facility] [address] [place] [address] LAB (ABNORMAL) BMP (Basic Metabolic Panel) (10/16/2017 10:02 AM SALES STOCK ASSOCIATE) P athologist Signature Potassium, S 5.2 3.6 - 5.2 10/16/2017 [facility] mmol/L 1:55 PM SALES STOCK ASSOCIATE [facility] Sodium, S 143 135 - 145 10/16/2017 [facility] mmol/L 1:55 PM [facility] Chloride, S 106 98 - 107 10/16/2017 [facility] mmol/L 1:55 PM [facility] Bicarbonate, S 24 22 - 29 10/16/2017 [facility] mmol/L 1:55 PM [facility] Anion Gap 13 7 - 15 10/16/2017 [facility] 1:55 PM [facility] BUN (Blood Urea 30 (H) 8 - 24 10/16/2017 [facility] Nitrogen), S mg/dL 1:55 PM [facility] Creatinine 1.23 0.74 - 10/16/2017 [facility] 1.35 mg/dL 1:55 PM [facility] eGFR 58 (L) >=60 10/16/2017 [facility] Non-Black/Afric mL/min/BSA 1:[address] [facility]- an [place] [employer] [facility] Comment: ----ADDITIONAL INFORMATION---- Estimated GFR calculated using the 2009 CKD_EPI creatinine equation. eGFR Black/ 67 >=60 mL/min/BSA 10/16/2017 1:55 PM [facility] Comment: ----ADDITIONAL INFORMATION---- Estimated GFR calculated using the 2009 CKD_EPI creatinine equation. Calcium, Total, S 9.7 8.9 - 10.1 mg/dL 10/16/2017 1:55 PM [facility] Glucose, S 189 (H) 70 - 140 mg/dL 10/16/2017 1:55 PM [facility] Specimen Anatomical Collection Method Collection Time Receive d Time (Source) Location / / Volume Laterality Blood 10/16/2017 10:02 10/16/2017 1:10 AM [facility] Cathy Mccoy M.D. LAB BLOOD ADD-ON Performing Organization Address City/State/ZIP Code Phon e Number [facility] [address] [place], [place] [address] [facility] (ABNORMAL) Hemoglobin A1c (10/16/2017 10:02 AM [facility]) athologist Signature Hemoglobin A1c, 7.4 (H) 4.2 - 5.6 10/16/2017 [facility] B % 2:26 PM [facility] Comment: Hemoglobin A1c values greater than or eq ual to 6.5 percent are diagnostic for diabetes mellitus. ?? Diagnosis should be confirmed by repeat testing. ??In diabet ic patients, HbA1c goals should be discussed with healthcar e provider. Specimen Anatomical Collection Method Collection Time Receive d Time (Source) Location / / Volume Laterality Blood 10/16/2017 10:02 10/16/2017 1:08 AM SALES STOCK ASSOCIATE PM SALES STOCK ASSOCIATE Cathy Mccoy M.D. LAB BLOOD ADD-ON Performing Organization Address [facility] Phon e Number [address] [phone] [facility] AST (Aspartate Aminotransferase) (10/16/2017 10:02 AM SALES STOCK ASSOCIATE) [facility] gist Method Time Signature Aspartate 27 8 - 48 10/16/2017 [facility] Aminotransferase U/L 1:[address] [facility] Specimen Anatomical Collection Method Collection Time Receive d Time (Source) Location / / Volume Laterality Blood 10/16/2017 10:02 10/16/2017 1:10 AM SALES STOCK ASSOCIATE PM SALES STOCK ASSOCIATE Cathy Mccoy M.D. LAB BLOOD ADD-ON Performing Organization Address [facility] Code Phon e Number [address] [phone] [facility] LAB (ABNORMAL) Lipid Panel (10/16/2017 10:02 AM SALES STOCK ASSOCIATE) P athologist Signature Cholesterol, 130 mg/dL 10/16/2017 [facility] Total 1:55 PM [facility] LAB Comment: ----REFERENCE VALUE---- Desirable: < 200 Borderline high: 200 - 239 High: > or = 240 Triglycerides 150 (H) mg/dL 10/16/2017 1:55 PM [facility] Comment: ----REFERENCE VALUE---- Normal: <150 Borderline high: 150-199 High: 200-499 Very high: > or =500 Cholesterol, HDL, S 25 (L) >=40 mg/dL 10/16/2017 1:55 PM [facility] LAB Calculated LDL 75 mg/dL 10/16/2017 1:55 PM SALES STOCK ASSOCIATE [facility] Comment: ----REFERENCE VALUE---- Desirable: <100 Above Desirable: 100-129 Borderline high: 130-159 High: 160-189 Very high: > or =190 Cholesterol, Non-HDL, 105 mg/dL 10/16/2017 1:55 PM SALES STOCK ASSOCIATE [facility] Comment: ----REFERENCE VALUE---- Desirable: <130 Above Desirable: 130-159 Borderline high: 160-189 High: 190-219 Very high: > or =220 Specimen Anatomical Collection Method Collection Time Receive d Time (Source) Location / / Volume Laterality Blood 10/16/2017 10:02 10/16/2017 1:10 AM SALES STOCK ASSOCIATE PM SALES STOCK ASSOCIATE Cathy Mccoy M.D. LAB BLOOD ADD-ON Performing Organization Address City/State/ZIP Code Phon e Number [facility] [address] [place] [phone] [facility] documented in this encounter Visit Diagnoses Diagnosis Hyperlipidemia Diabetes Mellitus Type 2 Without Complic ation (HCC) Hypertension NOS documented in this encounter Care Teams Offset Lithographic Press Operator Relationship Specialty Start Date End Date Cathy Mccoy M.D. PCP - General 02/23/17 12/18/19 documented as of this encounter
--- OUTSIDE RECORDS SUMMARY | 2022-05-24 18:27 | XMS_ITS | Encounter Summary ---
:1945 Author Organization [facility] Address [address] [place] [address] Care Team Providers Name Role Phone Cathy Mccoy M.D. Primary Care Provider Unavailable Encounter Details Date Type Department Care Team Description 04/12/2017 Hospital Encounter HX [facility] Tammy Mccoy M.D. Social History Tobacco [...] More than 4 times per year 06/14/2019 latter-day services? Do you belong to any clubs [...] 4 (four) times a day as needed. allopurinol Take 1 tablet by mouth 0 [...] mg 2 (two) times a day. tablet insulin lispro HumaLOG Mix 75/25 0 12/09/2016 protamin-lispro subcutaneous suspension (HumaLOG Mix 75-25) See Instructions, 75 am 100 unit/mL (75-25) and 75 pm E11.9, 60 mL, injection 4 Refill(s) [id number] Take 2 capsules by 0 03/3011/08/2017 e (for_CREON) mouth 3 (three) times a 24,000-76,000-120,000 day. Unit per capsule lisinopril Take 1 tablet by mouth 0 09/05/2016 (for_PRINIVIL,ZESTRIL) daily. 5 mg tablet metFORMIN XR Take 1 tablet by mouth 0 12/14/2016 11/29/2017 (for_GLUCOPHAGE-XR) daily. 500 mg 24 hr tablet metoprolol tartrate Take 0.5 tablets by 0 016 08/31/2017 (for_LOPRESSOR) 25 mg mouth 2 (two) times a tablet day. VITAMIN E ACETATE Take 1 capsule by mouth 0 04/0403/29/2018 (VITAMIN E ORAL) daily. documented as of this encounter Plan of Treatment Not on filedocumented as of this encounter Visit Diagnoses Not on filedocumented in this encounter Care Teams Supervisor Uranium Processing Relationship Specialty Start Date End Date Ctahy Mccoy M.D. PCP - General 02/23/17 12/18/19 documented as of this encounter
--- OUTSIDE RECORDS SUMMARY | 2022-05-24 18:27 | XMS_ITS | Encounter Summary ---
:1945 Author Organization [facility] Address [address] [place] [address] Care Team Providers Name Role Phone Unavailable Primary Care Provider Unavailable Encounter Details Date Type Department Care Team Description 10/14/2016 Hospital Encounter HX [facility] Cathy Rosenthal M.D. Social History Tobacco Use [...] Sign Reading Time Taken Comments Blood Pressure 88/60 10/14/2016 8:19 AM SUPERINTENDENT [employer]STRU[employer] Pulse 68 10/14/2016 8:19 AM SUPERINTENDENT [employer]STRUCTION Temperature - - Respiratory Rate 20 10/14/2016 8:19 AM SUPERINTENDENT [employer]CTION Oxygen Saturation - - Inhaled Oxygen Concentration - - Weight 113 kg (250 lb 3.6 oz) 10/14/2016 8:19 AM SUPERINT[employer]ENT [employer] Height 174 cm (5' 8.5) 10/14/2016 8:19 AM SUPERINTENDENT [employer]STRUCTION Body Mass Index 37.49 10/14/2016 8:19 AM SUPERINTENDENT [employer]STRUCTION documented in this encounter Medications at Time [...] tablet day. documented as of this encounter Progress Notes Cathy Mccoy M.D. - 10/14/2016 8:13 AM CST [id number] CHIEF COMPLAINT/REASON FOR VISIT A 71-year-old male here for diabetes check. His hemoglobin A1c is increased from his previous one at7.5. Previous one was 6.9. He says he thinks it is due to lack of exercise and put in that he skipped his insulin once and that went really high. He had 1 low reading of sugar at 60. Usually in the morning is 100 to 115. In the afternoon it is 180 unless he has a snack and found that it is higher. He was taking 70 units in the morning and 70 units in the p.m. of lispro 75/25. Now he is taking 75in the morning and 75 in the evening. PAST MEDICAL/SURGICAL HISTORY History of acute myocardial infarction with cardiac arrest and arterial stent. Coronary artery disease. Chronic pancreatitis. Diabetes type 2. Gout. Hypertension. Hyperlipidemia. History of Helicobacter pylori infection. Proteinuria. Skin cancer. Colonoscopy 2012. Gastroscopy same time. Colonoscopy 2007. Excision of calcaneal spur 2006. FAMILY HISTORY Mother had a brain tumor. Three brothers had cataracts, 1 brother coronary artery disease, 4 brothers and a sister with diabetes, sister with GERD, brother with glaucoma, brother with kidney stone, brother with pacemaker, brother with stroke. He comes from a large family. SOCIAL HISTORY He is a nonsmoker. His did smoke at times. She has quit since then. He drinks coffee daily. MEDICATIONS Albuterol metered-dose inhaler. Allopurinol 100 mg twice a day. Anbesol liquid as needed. EpiPen as needed. Fish oil 1000 mg 3 times a day. Gas-X as needed. Gemfibrozil 600 mg twice a day. Humalog 75/25, 75 in the morning, 75 in the evening as mentioned. Lidex 2 times a day as needed. Lisinopril 5 mg daily. We actually talked about decreasing that but it is such a small pill he did not want to cut it in half. Metformin 500 mg extended release 1 tab daily. Metoprolol tartrate 25 mg half tab twice a day. Nitroglycerin as needed. Pancrelipase 24,000/76,000/120,000 units 2 tabs 3 times a day. Pepto-Bismol as needed. Phenylephrine nasal spray as needed. Nasal saline and as needed. ALLERGIES Adhesive bandages. Aspirin. Bee stings. Clindamycin. Lipitor. Penicillin. He did have a bandage on his foot today, though. SYSTEMS REVIEW He has a low back ache in the morning. It goes away with movement. His feet are cold at night. Usually he is up a couple times at night but it is for bowel moment due to his pancreas rather than nocturia. Defers PSA and prostate exam. Remainder of review of systems negative except for what is mentioned in HPI. PHYSICAL EXAMINATION VITAL SIGNS: Blood pressure 88/60. He is not dizzy, very occasionally when he gets out of a chair. Pulse 68, respirations 20, temp 36.6, weight 113.5 kg. CHEST: Clear to auscultation bilaterally. CARDIOVASCULAR: Regular rate and rhythm. No murmur. EXTREMITIES: Feet have normal pulses but almost absent sensation. The right is even up his leg with no sensation. The left he could feel somewhat in the great toe. He has no edema. CHEST: Clear to auscultation bilaterally. CARDIOVASCULAR: Regular rate and rhythm. No murmur. IMPRESSION/REPORT/PLAN 1. Diabetes. 2. Screening test lab for hepatitis C. PLAN: He does not need any medication refills at this time. He is planning on doing more exercise assummer comes around and avoiding the sugar snacks. His protein has gone down greatly but still was elevated at 109. He was 300+. We ordered a hemoglobin A1c and a hepatitis C for 6 months and he shouldcome back. ADMINISTRATIVE BILLING Total time spent was 20 minutes, with 15 minutes in counseling and coordination of care. Cathy Mccoy M.D./pos Electronically Signed By: CATHY MCCOY MD On: 10/15/2016 05:19 PM Source: [facility] MHSDOLBEYNONRADSYS Document Id: [id number] [employer] documented in this encounter Nursing Notes Cathy Mccoy M.D. - 10/14/2016 8:57 AM CST Ambulatory Patient Education The following Patient Education Materials have been given to the patient: Patient Education Materials: Ambulatory DIABETIC FOOT CARE Ambulatory Diabetic Foot Care Diabetes can lead to a number of different foot complications. Fortunately, most of these complications can be prevented with a little extra foot care. If diabetes is not well controlled, the high blood sugar can cause damage to blood vessels and result in poor circulation to the foot. When the skin does not get enough blood flow, it becomes prone to pressure sores and ulcers, which heal slowly. High blood sugar can also damage nerves, interfering with the ability to feel pain and pressure. When you cant feel your foot normally, it is easy to injure your skin, bones and joints without knowing it. For these reasons diabetes increases the risk of fungal infections, bunions and ulcers. Deep ulcers can lead to bone infection. Gangrene is the most serious foot complication of diabetes. It usuallyoccurs on the tips of the toes as blacked areas of skin. The black area is tissue. In severe cases, gangrene spreads to involve the entire toe, other toes and the entire foot. Foot or toe amputation may be required. Good foot care and blood sugar control can prevent this. Home Care Wear comfortable, proper fitting shoes. Wash your feet daily with warm water and mild soap. After drying, apply a moisturizing cream or lotion. Check your feet daily for skin breaks, blisters, swelling, or redness. Look between your toes also. Wear cotton socks and change them every day. Trim toe nails carefully and do not cut your cuticles. Strive to keep your blood sugar under control with a combination of medicines, diet and activity. If you smoke and have diabetes, it is very important that you stop. Smoking reduces blood flow to your foot. Avoid activities that increase your risk of foot injury: ?? Do not walk barefoot. ?? Do not use heating pads or hot water bottles on your feet. ?? Do not put your foot in a hot tub without first checking the temperature with your hand. 10) Schedule yearly foot exams. Follow Up with your doctor or as advised by our staff. Report any cut, puncture, scrape, other injury, blister, bunion, ingrown toenail or ulcer on your foot. Get Prompt Medical Attention if any of the following occur: -- Black skin color anywhere on the foot -- Open ulcer with pus draining from the wound -- Increasing foot or leg pain -- New areas of redness or swelling or tender areas of the foot ?? [id number] Saul Ruelas, [address] [place] [address], [place] [address]. All rights reserved. This information is not intended as a substitute for professional medical care. Always follow your healthcare professional's instructions. Source: [facility] POWERCHART Document Id: [id number] [employer] Cathy Mccoy M.D. - 10/14/2016 8:44 AM CST Diabetes Intake Diabetes Intake Entered On: 10/14/2016 8:47 [employer]PERINTENDENT [employer]STRU[employer] Performed On: 10/14/2016 8:44 SUPERINTENDENT CONSTRUCTION by CATHY MCCOY MD Diabetes Intake Foot Exam Grid Left foot exam Right foot exam Dorsalis Pedis Pulse : Normal Normal Post Tibial Pulse : Normal Normal Capillary Refill : Less than 3 seconds Less than 3 seconds 10 gm Monofilament Sensation Check : Absent Absent CATHY MCCOY MD - 10/14/2016 8:44 SUPERINTENDENT [employer]STRU[employer] CATHY MCCOY MD - 10/14/2016 8:44 SUPERINTENDENT [employer]STRUCTION Source: [facility] Busbud Document Id: [id number] SUPERINTENDENT CONSTRUCTION!13 RINTENDENT [employer]STRUCTION documented in this encounter Miscellaneous Notes Telephone Encounter - Terra Polo R.N. - 03/30/2017 1:08 PM CDT Appt/labs Document Contains Addenda Addendum by ANNABEL BURGESS on April 04, 2017 09:13:53 CDT From: ANNABEL BURGESS To: TERRA POLO RN; Sent: 04/04/2017 09:13:53 CDT Subject: RE: Appt/labs scheduled From: TERRA POLO RN To: ANNABEL BURGESS; Sent: 03/30/2017 13:08:42 CDT Subject: Appt/labs due for appt and labs. orders in q Source: [facility] POWERCHART Document Id: [id number] Electronically signed by Conversion, [facility] [employer] [id number] at 04/12/2017 12:34 AM CDT Miscellaneous - Cathy Mccoy M.D. - 10/14/2016 8:58 AM CST Ambulatory Patient Summary [address] [id number] Visit Information Name: [address] [facility] Number: [id number] Current Date: 10/14/2016 08:58:03 Physicians Attending Provider: CATHY MCCOY MD Primary [...] lispro (HumaLOG Mix 75/25 subcutaneous suspension) See [id number] am and 75 pm E11.9 This is a CHANGE lisinopril (lisinopril 5 mg oral tablet) 1 [...] nasal (Saline Nasal Mist nasal spray) 2 [place](s), Nostrils(Both), four times a day as needed for Dry nasal passages Stop Taking the Following Medications: Medication list as of 10-14-16 08:58 Attention: If you have any medications at [...] Electronically Signed By: CATHY MCCOY MD Signed On:14-OCT-2016 08:57:24 Your Allergies & Intolerances Substance Reaction Symptoms [...] Your Upcoming Appointments Date Time Location Provider 03/16/2017 10:30 TRUE TALAVERA/Efrain Skinner MD Attention: Contact your local Clinic if further appointment detail needed. Diabetic Foot Care Diabetes can lead to a number of different foot complications. Fortunately, most of these complications can be prevented with a little extra foot care. If diabetes is not well controlled, the high blood sugar can cause damage to blood vessels and result in poor circulation to the foot. When the skin does not get enough blood flow, it becomes prone to pressure sores and ulcers, which heal slowly. High blood sugar can also damage nerves, interfering with the ability to feel pain and pressure. When you cant feel your foot normally, it is easy to injure your skin, bones and joints without knowing it. For these reasons diabetes increases the risk of fungal infections, bunions and ulcers. Deep ulcers can lead to bone infection. Gangrene is the most serious foot complication of diabetes. It usuallyoccurs on the tips of the toes as blacked areas of skin. The black area is tissue. In severe cases, gangrene spreads to involve the entire toe, other toes and the entire foot. Foot or toe amputation may be required. Good foot care and blood sugar control can prevent this. Home Care Wear comfortable, proper fitting shoes. Wash your feet daily with warm water and mild soap. After drying, apply a moisturizing cream or lotion. Check your feet daily for skin breaks, blisters, swelling, or redness. Look between your toes also. Wear cotton socks and change them every day. Trim toe nails carefully and do not cut your cuticles. Strive to keep your blood sugar under control with a combination of medicines, diet and activity. If you smoke and have diabetes, it is very important that you stop. Smoking reduces blood flow to your foot. Avoid activities that increase your risk of foot injury: ?? Do not walk barefoot. ?? Do not use heating pads or hot water bottles on your feet. ?? Do not put your foot in a hot tub without first checking the temperature with your hand. 10) Schedule yearly foot exams. Follow Up with your doctor or as advised by our staff. Report any cut, puncture, scrape, other injury, blister, bunion, ingrown toenail or ulcer on your foot. Get Prompt Medical Attention if any of the following occur: -- Black skin color anywhere on the foot -- Open ulcer with pus draining from the wound -- Increasing foot or leg pain -- New areas of redness or swelling or tender areas of the foot ?? [id number] Saul Ruelas, [address] [place] [address]. All rights reserved. This information is not [...] if you dont have one. Go to [email or web address] and click on Create Your Account. Then, follow the directions to complete the online form. Youll be asked for your [facility] number which you can find at the top of this document. Your Goals/Additional instructions: Source: [facility] POWERCHART Document Id: [id number] [employer] Miscellaneous - Cathy Mccoy M.D. - 10/14/2016 8:58 AM CST Ambulatory Discharge Medication List [facility] [address] [place] [id number] Visit Information Name: [address] [facility] Number: [id number] Current Date: 10/14/2016 08:58:01 Attending Provider: CATHY MCCOY MD Primary Care Provider: CATHY MCCOY MD MESSIHENRIETTASANDYBRANT BARKER has been given the following list [...] lispro (HumaLOG Mix 75/25 subcutaneous suspension) See [id number] am and 75 pm E11.9 This is a CHANGE lisinopril (lisinopril 5 mg oral tablet) 1 [...] nasal (Saline Nasal Mist nasal spray) 2 [place](s), Nostrils(Both), four times a day as needed for Dry nasal passages Stop Taking the Following Medications: Medication list as of 10-14-16 08:58 Attention: If you have any medications at [...] Electronically Signed By: CATHY MCCOY MD Signed On:14-OCT-2016 08:57:24 Additional Information: Yes - . Source: [facility] POWERCHART Document Id: [id number] [employer] Miscellaneous - Shirin Keen L.P.N. - 10/14/2016 8:19 AM CST Adult Operator Catalyst Concentration Intake/History Adult Operator Catalyst Concentration Intake/History Entered On: 10/14/2016 8:22 [employer]PERINTENDENT [employer]STRU[employer] Performed On: 10/14/2016 8:19 [employer]PERINTENDENT CONSTRUCTION by SHIRIN KEEN LPN Intake Chief Complaint : follow up diabetes Temperature Core : 36.6 DegC(Converted to: 97.9 DegF) Peripheral Pulse Rate : 68 /min Respiratory Rate : 20 /min Heart Rhythm : Regular Systolic Blood Pressure : 88 mmHg (<LLOW) Diastolic Blood Pressure : 60 mmHg NIBP Mean : 69 mmHg BP Location : Left upper extremity Blood Pressure Cuff Size : Large Height : 174 cm(Converted to: 5 ft 9 inch(es), 69 inch(es)) Actual Weight : 113.5 kg(Converted to: 250 lb 4 oz) Weight Source : Standing scale Dosing Weight Clinic : 113.5 kg Clinic BSA : 2.34 Body Mass Index : 37.49 kg/m2 SHIRIN KEEN LPN - 10/14/2016 8:19 [employer]PERINTENDENT [employer]STRU[employer] General Info Information Given By : Patient Preferred Communication Mode : Verbal Languages : Greenlandic Is Patient Female and 13-50 no hysterectomy : No SHIRIN KEEN LPN - 10/14/2016 8:19 [employer]PER[employer]ENDENT [employer] Subjective Pain Symptoms : No SHIRIN KEEN LPN - 10/14/2016 8:19 [employer]PER[employer] Dependent Habits Exposure to Tobacco Smoke : Other: non smoker Smoking Status : Never smoker Tobacco 2A : No Tobacco Use/Currently Using : No Tobacco Use/Last 30 Days : No Tobacco Use/Last 12 months : No SHIRIN KEEN LPN - 10/14/2016 8:19 [employer]PER[employer]ENDENT [employer] Caffeine Use Grid Caffeine Use : Current Type : Coffee Frequency : Daily SHIRIN KEEN LPN - 10/14/2016 8:19 SUPERINTENDENT [employer]STRUCTION [facility] Document Id: [id number] SUPERINTENDENT CONSTRUCTION!37 R[employer]ENDENT [employer]STRUCTION documented in this encounter Plan of Treatment Not on filedocumented as of this encounter Visit Diagnoses Not on filedocumented in this encounter
--- OUTSIDE RECORDS SUMMARY | 2022-05-24 18:27 | XMS_ITS | Encounter Summary ---
:1945 Author Organization [facility] Address [address] [place] [address] Care Team Providers Name Role Phone Cathy Mccoy M.D. Primary Care Provider Unavailable Reason for Visit Reason Comments Med Refill Encounter Details Date Type Department Care Team Description 08/31/2017 Refill Department of Family Medicine, Brenda Saba L.P.NKamila Med Refill [facility], in [place] [address] [place] [address] Social History Tobacco Use Types Packs/Day Years [...] on filedocumented in this encounter Care Teams Secondary Spanish Teacher Relationship Specialty Start Date End Date Cathy Mccoy M.D. PCP - General 02/23/17 12/18/19 documented as of this encounter
--- OUTSIDE RECORDS SUMMARY | 2022-05-24 18:27 | XMS_ITS | Encounter Summary ---
:1945 Author Organization [facility] Address [address] [place] [address] Care Team Providers Name Role Phone Cathy Mccoy M.D. Primary Care Provider Unavailable Encounter Details Date Type Department Care Team Description 08/01/2017 Orders Only Department of Family [facility] [place], [address] [place] [id number] [place] [address] [place] [address] Social History Tobacco Use [...] or relatives? How often do you attend taoism or More than 4 times per year 06/14/2019 taoism services? Do you belong to any clubs or Yes 06/14/2019 organizations such as taoism groups, unions, fraternal or athletic groups, or [...] filedocumented in this encounter Care Teams Credit Verifier Relationship Specialty Start Date End Date Cathy Mccoy M.D. PCP - General 02/23/17 12/18/19 documented as of this encounter
--- OUTSIDE RECORDS SUMMARY | 2022-05-24 18:27 | XMS_ITS | Encounter Summary ---
:1945 Author Organization [facility] Address [address] [place] [address] Care Team Providers Name Role Phone Unavailable Primary Care Provider Unavailable Encounter Details Date Type Department Care Team Description 01/25/[address] [facility] Lisa Cardozo ED, M.D. [address] [place], [place] [phone] (Wo rk) Social History Tobacco Use Types [...] More than 4 times per year 06/14/2019 mormon services? Do you belong to any clubs [...] Sign Reading Time Taken Comments Blood Pressure 156/88 01/25/2016 10:20 AM CDT Pulse 63 01/25/2016 8:07 AM CDT Temperature - - Respiratory Rate 19 01/25/2016 10:20 AM CDT Oxygen Saturation - - Inhaled Oxygen Concentration - - Weight 112 kg (246 lb 14.6 oz) 01/25/2016 7:43 AM CDT Height - - Body Mass Index 36.99 12/02/2015 9:58 AM CDT documented in this encounter Discharge Summaries Padmini Fletcher R.N. - 01/25/2016 10:44 AM CDT ED Depart Summary [facility] Emergency Department Clinical Discharge Summary PERSON INFORMATION Name AVE CHANCE Age 70 Years 1945 12:00 AM Sex Male Language Chadian PCP CATHY MCCOY MD Marital Status N [id number] Visit Id Visit Reason Abdominal pain; ABDOMINAL PAIN Specialty Enc Type Emergency Med Service Emergency Medicine Referred by Armando RECIO ED Discharge 01/25/2016 10:44 AM Tracking Id [id number] Checkout 01/25/2016 10:44 AM Checkin 01/25/2016 7:40 AM Acuity 3 -Urgent Dispo Type * Discharged to Home or Self Care Arrival 01/25/2016 7:40 AM Reg Status Complete LOS 000 03:04 Address: [address] [place] [phone] Comment: PROVIDER INFORMATION Provider Role Provider Contact Time PADMINI FLETCHER RN ED Nurse 01/25/16 07:48 HAN POE MD ED Provider 01/25/16 08:10 SHARLENE DALTON ED Standards Analyst 01/25/16 08:12 DIAGNOSIS Pain Abdominal R Lower Quadrant (RLQ) Comment: PATIENT EDUCATION INFORMATION Instructions: Abdominal Pain, Adult Follow up: With: Address: When: Follow Up with Primary Care Within 2 - 4 days Comments: RLQ pain With: Address: When: CATHY MCCOY [address] [place] [address] [phone] Business (1) Within As Needed Source: [facility] POWERCHART Document Id: [id number] Padmini Fletcher R.N. - 01/25/2016 10:44 AM CDT ED Discharge Instructions [address] [id number] [place] [address] Name: AVE CHANCE Date of : 1945 12:00 AM Visit Date: 01/25/2016 7:40 AM [facility] Number: [id number] Address: [address] [place] [address] [phone] Primary Care Provider: CATHY MCCOY MD IMPORTANT: [facility] in [place] would like to thank you for allowing us to assist you with your healthcare needs. The following includes patient education materials and information regarding your injury/illness. Diagnosis: Pain Abdominal R Lower Quadrant (RLQ) Follow-Up Instructions: With: Address: When: Follow Up with Primary Care Within 2 - 4 days Comments: RLQ pain With: Address: When: CATHY MCCOY [address] [place] [phone] Business (1) Within As Needed Your Upcoming Appointments: Date Time Location Provider 04/11/2016 09:00 [facility] Lab [facility] Lab 04/12/2016 09:00 [facility] Cathy Payton MD 08/09/2016 12:45 [facility]/Hep Efrain Ellison MD Patient Education Materials: Abdominal Pain Abdominal pain is pain in [...] foods again, start with small amounts of jqre-qy-apptje, low-fat foods, such as applesauce, toast,or crackers. [...] Elevate the head of your bed. ?? [id number] [facility], [address] [place] [address], [place] [address]. All rights reserved. This information is not [...] if you dont have one. Go to [email or web address] and click on Create Your Account. Then, follow the directions to complete the online form. Youll be asked for your [facility] number which you can find at the top of this document. ED Tests and Procedures: Order Status CBC (includes Auto Differential) Completed Comprehensive Metabolic Panel Completed Lipase Level Completed Urinalysis with Microscopic Completed CT Abdomen/Pelvis w/ contrast Completed Stool Occult Blood x1-Diagnostic Completed Automated Diff-5 Part Completed Follow Up with Primary Care Completed Discharge Prescriptions & Home Medications: Medication/Strength Dose Route Frequency Indications/Special Instructions/Comments/Notes polyethylene glycol 3350 (MiraLax oral powder for reconstitution) 1 packet(s) Oral once a day Contents of 1 packet dissolved in 4-8oz of water, juice, soda, coffee, or tea HYDROcodone-acetaminophen (HYDROcodone-acetaminophen 5 mg-325 mg oral tablet) 1 to 2 tablets Oral every 6 hours as needed for Pain No more than 4,000mg acetaminophen/24hrs insulin lispro protamine-insulin lispro (HumaLOG Mix 75/25 subcutaneous suspension) See [id number] am and 70 pm E11.9 fluocinonide topical (Lidex 0.05% topical solution) 1 cecile Topical two times a day allopurinol (allopurinol 100 mg oral tablet) 100 mg Oral two times a day pancrelipase (Creon 36,000 units oral delayed release capsule) 2 cap(s) Oral three times a day metoprolol (metoprolol 25 mg oral tablet) 12.5 mg Oral two times a day lisinopril (lisinopril 5 mg oral tablet) 5 mg Oral once a day metFORMIN (metFORMIN 500 mg oral tablet, extended release) 500 mg Oral once a day gemfibrozil (gemfibrozil 600 mg oral tablet) 600 mg Oral two times a day nitroglycerin (nitroglycerin 0.4 mg sublingual tablet) 0.4 mg Sublingual as needed as needed for Chest Pain EPINEPHrine (EpiPen 2-Yves 0.3 mg injectable kit) 0.3 mg Intramuscular once simethicone (Gas-X) 80 mg as needed *phenylephrine nasal (phenylephrine 0.5% nasal spray) as needed for allergies sodium chloride nasal (Saline Nasal Mist nasal spray) 2 spray(s) Nostrils(Both) four times a day as needed for Dry nasal passages omega-3 polyunsaturated fatty acids (Fish Oil 1000 mg oral capsule) 1,000 mg Oral three times a day albuterol (albuterol CFC free 90 mcg/inh inhalation aerosol) 2 puff(s) Inhalation every 4 hours as needed for Shortness of Breath allergic triggered asthma bismuth subsalicylate (Pepto-Bismol) Oral as needed upset stomach * You have let us know that you are not taking this medication as listed. Please talk with your primary care provider or the health care provider who prescribed the medication as soon as possible. Comment: Attention: If you have any medications at home not on this list, DO NOT take them until you contact your provider for clarification. Give a copy of your medication list to your primary care provider. Update your medication list any time medications or doses are changed and carry your medication list at all times in case of emergency. IMPORTANT: We examined and treated you today on an emergency basis only. This was not a substitute for, or an effort to provide, complete medical care. In most cases, you must let your doctor check youagain. Tell your doctor about any new or lasting problems. We cannot recognize and treat all injuries or illnesses in one Emergency Department visit. If you had special tests, such as EKG's or X- rays, we will review them again within 24 hours. We will call you if there are any new suggestions. Please follow the instructions above carefully. If you are being transferred to another facility your followup plan of care will be determined by the receiving facility. If you are a patient that is being discharged from the Emergency Department after receiving narcotics or other medications that may impair your judgment you may be a risk to yourself or others if you operate a motor vehicle. We recommend that you arrange a ride home with a responsible alliance party. OFELIA Mcghee LARRY JAMES , or responsible alliance party have received this information and my questions have been answered. I have discussed any challenges I see with this plan with the nurse or physician. Patient Signature or Responsible Libertarian/Relationship Date Time Provider Signature Date Time IMPORTANT: We examined and treated you today on an emergency basis only. This was not a substitute for, or an effort to provide, complete medical care. In most cases, you must let your doctor check youagain. Tell your doctor about any new or lasting problems. We cannot recognize and treat all injuries or illnesses in one Emergency Department visit. If you had special tests, such as EKG's or X- rays, we will review them again within 24 hours. We will call you if there are any new suggestions. Please follow the instructions above carefully. If you are being transferred to another facility your followup plan of care will be determined by the receiving facility. If you are a patient that is being discharged from the Emergency Department after receiving narcotics or other medications that may impair your judgment you may be a risk to yourself or others if you operate a motor vehicle. We recommend that you arrange a ride home with a responsible alliance party. OFELIA Mcghee LARRY JAMES , or responsible alliance party have received this information and my questions have been answered. I have discussed any challenges I see with this plan with the nurse or physician. Patient Signature or Responsible Libertarian/Relationship Date Time Provider Signature Date Time Source: [facility] POWERCHART Document Id: [id number] documented in this encounter Medications at Time [...] external solution documented as of this encounter ED Notes Padmini Fletcher R.N. - 01/25/2016 10:42 AM CDT ED Nurse Reassess ED Nurse Reassess Entered On: 01/25/2016 10:43 CDT Performed On: 01/25/2016 10:42 CDT by PADMINI FLETCHER RN Pain Assessment Pain Symptoms : Yes PADMINI FLETCHER RN - 01/25/2016 10:42 CDT Pain Scale Pain Scale Verbal 0-10 : Open PADMINI FLETCHER RN - 01/25/2016 10:42 CDT Pain Pain Assessment Grid Pain 1 Location : Abdomen Laterality : Right Intensity : 5 PADMINI FLETCHER RN - 01/25/2016 10:42 CDT Comfort Measures Comfort Measures Grid Meditation Facilitation : Yes PADMINI FLETCHER RN - 01/25/2016 10:42 CDT Resp Reassess Respiratory Patient Stated Symptoms : None Distress : None Airway : Patent Respirations : Unlabored Cough : None PADMINI FLETCHER RN - 01/25/2016 10:42 CDT Breath Sounds Assessment Grid [place] : Clear RUL : Clear RML : Clear LLL : Clear RLL : Clear GOLDEN PADMINI PRIEST RN - 01/25/2016 10:42 CDT CV Reassess CV Patient Stated Symptoms : None Skin Color : Normal for ethnicity Skin Description : Dry Skin Temperature : Warm Nail Bed Color : [place] Capillary Refill : Less than 2 seconds GOLDEN PADMINI PRIEST RN - 01/25/2016 10:42 CDT Neuro Reassess Last Well Time Known : Not applicable Orientation : Oriented x 3 Characteristics of Speech : Clear Level of Consciousness : Alert Neuro Patient Stated Symptoms : None Gait : Steady GOLDEN PADMINI PRIEST RN - 01/25/2016 10:42 CDT [place] Coma Eye Opening Response Carmella : Spontaneously Best Verbal Response Carmella : Oriented Best Motor Response [place] : Obeys simple commands Carmella Coma Score : 15 GOLDEN PADMINI PRIEST RN - 01/25/2016 10:42 CDT Behavioral Health Screen/Safety Reassmt Affect/Behavior : Calm, Cooperative PADMINI FLETCHER RN - 01/25/2016 10:42 CDT GI Reassess GI Patient Stated Symptoms : Abdominal pain Abdomen Palpation : Soft, Tender Tenderness : Right lower quadrant PADMINI FLETCHER RN - 01/25/2016 10:42 CDT Bowel Sounds Grid LUQ : Normoactive RUQ : Normoactive LLQ : Normoactive RLQ : Normoactive PADMINI FLETCHER RN - 01/25/2016 10:42 CDT GI Note : ct negative medicated for pain will send home PADMINI FLETCHER RN - 01/25/2016 10:42 CDT /OB Reassess Patient Stated Symptoms : None PADMINI FLETCHER RN - 01/25/2016 10:42 CDT [facility] Document Id: [id number] CDT!59 Padmini Fletcher R.N. - 01/25/2016 10:31 AM CDT ED Education ED Education Entered On: 01/25/2016 10:31 CDT Performed On: 01/25/2016 10:31 CDT by PADMINI FLETCHER RN Education ED Education Grid Topics : Medication, Nutrition/Diet, Pain management, Plan of care, Other: to call or retrun with questions or concerns Individuals Taught : Patient, Spouse Barriers to Learning : None evident Teaching Method : Explanation, Printed materials Teaching Evaluation : Able to teach back, Verbalizes understanding PADMINI FLETCHER RN - 01/25/2016 10:31 CDT Source: [facility] BoltCHART Document Id: [id number] CDT!9 Han Poe M.D. - 01/25/2016 10:10 AM CDT Abdominal pain Patient: AVE CHANCE Age: 70 years Sex: Male : 1945 Author: HAN POE MD Attachments: None I,--Mary Wiseman, [place] scribing for and in the presence of Han Poe M.D.. Basic Information Time seen: Date 01/25/2016. History source: Patient. Arrival mode: Private vehicle. History limitation: None. Additional information: Chief Complaint from Nursing Triage Note : Chief Complaint Description 01/25/2016 8:07 CDT Chief Complaint Description RLQ pain started monday evening worsening today veronika with movment pain at rest 4/10 eating ok no n/v last BM yesterday normal has appendix Hx of Pancreatitis this feels different 01/25/2016 7:43 CDT Chief Complaint Description right lower abd pain since monday, slight nauses this am, aggravated with movement, unknown fever . History of Present Illness The patient presents with abdominal pain. The onset was 3 days ago. The course/duration of symptoms is constant and worsening. The character of symptoms is sharp. The degree at onset was minimal. The Location of pain at onset was right, lower and abdominal. The degree at present is moderate. The Location of pain at present is right, lower and abdominal. The relieving factor is none. Therapy today: none. Risk factors consist of age. Associated symptoms: denies nausea, denies vomiting, denies diarrhea, denies back pain and denies shortness of breath. Additional history: pt is a 70 year old male presenting to ED with RLQ abdominal pain. pt states for the past few days pain has worsened, he was going to mow the lawn today but pain was too persistent so he came to ED. he denies n/v/d. pt notes feelingminimally constipated recently, did have smaller stool today. he denies rectal bleeding but notes stool today was darker than normal. pt denies pain radiating to the back. pt denies fevers, chills. . Review of Systems Constitutional symptoms: Negative except as documented in HPI. Skin symptoms: Negative except as documented in HPI. Eye symptoms: Negative except as documented in HPI. ENMT symptoms: Negative except as documented in HPI. Respiratory symptoms: Negative except as documented in HPI. Cardiovascular symptoms: Negative except as documented in HPI. Gastrointestinal symptoms: Negative except as documented in HPI. Genitourinary symptoms: Negative except as documented in HPI. Musculoskeletal symptoms: Negative except as documented in HPI. Neurologic symptoms: Negative except as documented in HPI. Psychiatric symptoms: Negative except as documented in HPI. Endocrine symptoms: Negative except as documented in HPI. Hematologic/Lymphatic symptoms: Negative except as documented in HPI. Allergy/immunologic symptoms: Negative except as documented in HPI. Additional review of systems information: All other systems reviewed and otherwise negative. Health Status Allergies: Allergic Reactions (Selected) Severity Not Documented Adhesive Bandage- Rash. Aspirin- Nosebleeds. Bee Stings- No reactions were documented. Clindamycin- No reactions were documented. Lipitor- Chest pain:pressure/tightness. Penicillin- Hives and sob - shortness of breath.. Past Medical/ Family/ Social History Medical history: DM II Hyperlipidemia HTN CAD. Surgical history: Gastroscopy ([id number]) on 07/16/2013 at 68 Years. Comments: 07/16/2013 13:58 - APRIL FARMER RN Rx for pancrelipase tid with meals 07/16/2013 13:50 - APRIL FARMER RN versed 4mg fentanyl 100 mcg for both egd and colonoscopy; mild gastritis; biopsies taken throughout; Colonoscopy ([id number]) on 07/16/2013 at 68 Years. Comments: 07/16/2013 13:53 - APRIL FARMER RN versed 4 mg fentanyl 100 mcg for both egd and colonoscopy; random biopsies taken throughout; mild diverticulosis; repeat 5-10 years Colonoscopy ([id number]) on 06/23/2008 at 63 Years. Excision of calcaneal spur ([id number]) in 2006 at 62 Years.. Family history: Kidney stone Brother (mulu) Cataract Brother (bianca) Brother (sabino) Brother (savage) Diabetes mellitus Brother (sabino) Brother (savage) Brother (mulu) Sister (domenic) Brother (bianca) Brain tumor Mother (rachana, ) Stroke Brother (savage) Glaucoma Brother (bianca) Pacemaker care Brother (savage) GERD - Gastro-esophageal reflux disease Sister (domenic) Coronary artery disease Brother (savage) . Problem list: All Problems Helicobacter Pylori [h. Pylori] Infection in Conditions Classified Elsewhere and of Unspecified Site/ 041.86 / Confirmed Skin cancer / 173.9 / Confirmed Family history of cataract / 609069406 / Confirmed Diabetes mellitus without mention of complication, type II or unspecified type, not stated as uncontrolled / 250.00 / Confirmed Family history of renal stone / 1925581357 / Confirmed Hyperlipidemia / 272.4 / Confirmed Gout / 274 / Confirmed Family history of coronary artery disease / 4354528372 / Confirmed Family history of sleep apnea / 7500940269 / Confirmed HTN [Hypertension] / 401.9 / Confirmed Acute Myocardial Infarction / 410 / Confirmed Family history of cancer / 336935858 / Confirmed Coronary artery disease-unsp. type vessel / 414.00 / Confirmed Cardiac Arrest / 427.5 / Confirmed Arterial stent / 076001578 / Confirmed Chronic pancreatitis NOS / 577.1 / Confirmed Proteinuria / R80.9 / Confirmed Family History of Diabetes Mellitus / V18.0 / Confirmed Family history of glaucoma / V19.1 / Confirmed. Physical Examination Vital Signs: Vital Signs 01/25/2016 9:40 CDT Heart Rate Monitored 58 /min LOW Pulse SpO2 58 /min Respiratory Rate 14 /min SpO2 98 % 01/25/2016 7:43 CDT Temperature Oral 36.4 DegC Peripheral Pulse Rate 68 /min Respiratory Rate 20 /min SpO2 97 % Systolic Blood Pressure 164 mmHg >HHI Diastolic Blood Pressure 81 mmHg Mean Arterial Pressure 109 mmHg BP Location Left upper . General: Alert and mild distress. Skin: No rash and normal for ethnicity. Head: Normocephalic and atraumatic. Neck: Supple. Eye: Extraocular movements are intact and normal conjunctiva. Cardiovascular: Regular rate and rhythm and Normal peripheral perfusion. Respiratory: Lungs are clear to auscultation, respirations are non-labored and breath sounds are equal. Gastrointestinal: Soft, Non distended, Normal bowel sounds and Tenderness: Moderate, right lower quadrant. Back: Nontender and Normal range of motion. Musculoskeletal: Normal ROM Neurological: Alert and oriented to person, place, time, and situation and No focal neurological deficit observed. Psychiatric: Cooperative. Medical Decision Making Differential Diagnosis:Abdominal pain, Appendicitis, renal stone, ureteral stone, biliary colic, cholecystitis, hepatitis, pancreatitis, urinary tract infection, pyelonephritis, constipation, incarcerated hernia. Documents reviewed:Emergency department nurses' notes (triage notes), prior records. Results review:Lab results : Lab View 01/25/2016 9:43 CDT UA Color Yellow UA Clarity Clear UA Spec Grav 1.042 HI UA pH 5.5 UA Protein 30 mg/dL UA Glucose Negative UA Ketones Negative UA Bili Negative UA Urobilinogen 0.2 mg/dL UA Blood Trace UA Nitrite Negative UA Leuk Est Negative UR WBC None Seen /HPF UR RBC Occ-2 /HPF UR Hyaline Cast 1-3 /LPF Occult Bld Stl I Negative 01/25/2016 8:44 CDT Hgb 14.2 g/dL Hct 42.8 % WBC 5.6 x10(9)/L RBC 4.29 x10(12)/L LOW MCV 99.8 fL HI RDW 14.2 % Platelet 209 x10(9)/L Neutro Absolute 2.89 10(9)/L Lymph Absolute 2.04 x10(9)/L [place] Absolute 0.61 x10(9)/L Eos Absolute 0.08 x10(9)/L Baso Absolute 0.01 x10(9)/L Sodium Lvl 137 mmol/L Potassium Lvl 4.5 mmol/L Chloride 104 mmol/L CO2 22 mmol/L AGAP 11 mmol/L Alkaline Phosphatase 100 U/L Glucose Lvl 217 mg/dL HI Creatinine 1.1 mg/dL EGFR (MDRD) >60 mL/min/SA EGFR (MDRD) >60 mL/min/SA BUN 25 mg/dL HI Calcium Lvl 9.7 mg/dL Protein Total 6.8 g/dL Albumin Lvl 4.2 g/dL AST 21 U/L ALT 21 U/L Bili Total 0.4 mg/dL Lipase Lvl 6 U/L LOW . Radiology results:Radiologist's interpretation: : Radiology 01/25/2016 9:[address] Abdomen/Pelvis w/ contrast [id number] , IMPRESSION: 1. Normal-appearing appendix. 2. No acute intra-abdominal/pelvic pathology. 3. Other stable incidental nonacute findings as described above. Signature Line Final Dictated: 01/25/2016 9:48 am NARINDER CAZARES MD . Impression and Plan Plan Condition: Stable. Counseled: Patient, Regarding diagnosis, Regarding diagnostic results, Regarding treatment plan, Patient indicated understanding of instructions. Notes: I personally performed the services described in this documentation and as scribed in my presence; it is both accurate and complete.. Patient is a 70-year-old male presenting with right lower quadrant abdominal pain. Laboratory studies shows normal white blood cell count, urine negative for infection, liver tests and lipase are otherwise normal, CT scan with no evidence of acute obstruction, pancreatitis, appendicitis or any other acute findings. Patient was given pain control in the emergency department, tolerated well, is comfortable with discharged home and close primary care followup if no significant improvement of X 3 to 5 days, will return with any acute worsening. FINAL DIAGNOSIS: Right lower quadrant abdominal pain. Disposition: Home with outpatient primary care followup. Electronically Signed By: HAN POE MD On: 01/25/2016 03:21 PM Modified by and Electronically Signed by: HAN POE MD On: 01/25/2016 03:21 PM Source: [facility] POWERCHART Document Id: [id number] Padmini Fletcher RKamilaN. - 01/25/2016 9:55 AM CDT ED Nurse Reassess ED Nurse Reassess Entered On: 01/25/2016 9:56 CDT Performed On: 01/25/2016 9:55 CDT by PADMINI FLETCHER RN Pain Assessment Pain Symptoms : Yes PADMINI FLETCHER RN - 01/25/2016 9:55 CDT Pain Scale Pain Scale Verbal 0-10 : Open PADMINI FLETCHER CEM RN - 01/25/2016 9:55 CDT Pain Pain Assessment Grid Pain 1 Location : Abdomen Laterality : Right Intensity : 4 Comments (Comment: back from ct feels gassy refuses anything for pain yet [GOLDEN PADMINI PRIEST RN - 01/25/2016 9:55 CDT] ) GOLDEN PADMINI PRIEST RN - 01/25/2016 9:55 CDT Resp Reassess Respiratory Patient Stated Symptoms : None Distress : None Airway : Patent Respirations : Unlabored PADMINI FLETCHER RN - 01/25/2016 9:55 CDT CV Reassess CV Patient Stated Symptoms : None Skin Color : Normal for ethnicity Skin Description : Dry Skin Temperature : Warm Nail Bed Color : [place] Capillary Refill : Less than 2 seconds PADMINI FLETCHER RN - 01/25/2016 9:55 CDT Neuro Reassess Last Well Time Known : Not applicable Orientation : Oriented x 3 Characteristics of Speech : Clear Level of Consciousness : Alert Neuro Patient Stated Symptoms : None Gait : Steady PADMINI FLETCHER RN - 01/25/2016 9:55 CDT [place] Coma Eye Opening Response Carmella : Spontaneously Best Verbal Response Carmella : Oriented Best Motor Response [place] : Obeys simple commands Carmella Coma Score : 15 GOLDEN PADMINI PRIEST RN - 01/25/2016 9:55 CDT Behavioral Health Screen/Safety Reassmt Affect/Behavior : Calm, Cooperative PADMINI FLETCHER RN - 01/25/2016 9:55 CDT GI Reassess GI Patient Stated Symptoms : Abdominal pain Abdomen Description : Rounded Abdomen Palpation : Tender Tenderness : Right lower quadrant GI Note : back from ct feels gassy refuses anything for pain PADMINI FLETCHER RN - 01/25/2016 9:55 CDT /OB Reassess Patient Stated Symptoms : None PADMINI FLETCHER RN - 01/25/2016 9:55 CDT Source: [employer] Document Id: [id number] CDT!45 Padmini Fletcher R.N. - 01/25/2016 9:39 AM CDT ED Pain Assessment ED Pain Assessment Entered On: 01/25/2016 9:39 CDT Performed On: 01/25/2016 9:39 CDT by PADMINI FLETCHER RN Pain Assessment Pain Symptoms : Yes PADMINI FLETCHER RN - 01/25/2016 9:39 CDT Pain Scale Pain Scale Verbal 0-10 : Open PADMINI FLETCHER RN - 01/25/2016 9:39 CDT Pain Pain Assessment Grid Pain 1 Location : Abdomen Laterality : Right Intensity : 4 Comments (Comment: refuses anything for pain [PADMINI FLETCHER RN - 01/25/2016 9:39 CDT] ) PADMINI FLETCHER RN - 01/25/2016 9:39 CDT Source: [employer] Document Id: [id number] CDT!11 Padmini Fletcher R.N. - 01/25/2016 9:02 AM CDT ED Nurse Reassess ED Nurse Reassess Entered On: 01/25/2016 9:03 CDT Performed On: 01/25/2016 9:02 CDT by PADMINI FLETCHER RN Pain Assessment Pain Symptoms : Yes PADMINI FLETCHER RN - 01/25/2016 9:02 CDT Pain Scale Pain Scale Verbal 0-10 : Open PADMINI FLETCHER RN - 01/25/2016 9:02 CDT Pain Pain Assessment Grid Pain 1 Location : Abdomen Laterality : Right Intensity : 4 PADMINI FLETCHER RN - 01/25/2016 9:02 CDT Resp Reassess Respiratory Patient Stated Symptoms : None Distress : None Airway : Patent Respirations : Unlabored PADMINI FLETCHER RN - 01/25/2016 9:02 CDT CV Reassess CV Patient Stated Symptoms : None Skin Color : Normal for ethnicity Skin Description : Dry Skin Temperature : Warm Nail Bed Color : [place] Capillary Refill : Less than 2 seconds Cardiac Rhythm : Sinus rhythm PADMINI FLETCHER RN - 01/25/2016 9:02 CDT Neuro Reassess Last Well Time Known : Not applicable Orientation : Oriented x 3 Characteristics of Speech : Clear Level of Consciousness : Alert Neuro Patient Stated Symptoms : None Gait : Steady PADMINI FLETCHER RN - 01/25/2016 9:02 CDT [place] Coma Eye Opening Response [place] : Spontaneously Best Verbal Response Carmella : Oriented Best Motor Response Carmella : Obeys simple commands [place] Coma Score : 15 GOLDEN PADMINI PRIEST RN - 01/25/2016 9:02 CDT Behavioral Health Screen/Safety Reassmt Affect/Behavior : Calm, Cooperative PADMINI FLETCHER RN - 01/25/2016 9:02 CDT GI Reassess GI Patient Stated Symptoms : Abdominal pain Abdomen Description : Rounded Abdomen Palpation : Soft, Tender Tenderness : Right lower quadrant PADMINI FLETCHER RN - 01/25/2016 9:02 CDT Bowel Sounds Grid LUQ : Normoactive RUQ : Normoactive LLQ : Normoactive RLQ : Normoactive PADMINI FLETCHER RN - 01/25/2016 9:02 CDT GI Note : thinks stolls this am very small and ? black stool yesterday normal PADMINI FLETCHER RN - 01/25/2016 9:02 CDT /OB Reassess Patient Stated Symptoms : None PADMINI FLETCHER RN - 01/25/2016 9:02 CDT Source: [employer] Document Id: [id number] CDT!51 Padmini Fletcher R.N. - 01/25/2016 8:25 AM CDT ED Treatments and Procedures ED Treatments and Procedures Entered On: 01/25/2016 8:26 CDT Performed On: 01/25/2016 8:25 CDT by PADMINI FLETCHER RN Peripheral IV Peripheral IV Assess/Intervention Grid Peripheral IV #1 IV Activity : Start Number of Attempts : 1 Date of Insertion : 01/25/2016 CDT IV Site : Hand Laterality : Left Catheter Size : 20 Catheter Type : Over the needle PADMINI FLETCHER RN - 01/25/2016 8:25 CDT Source: [employer] Document Id: [id number] CDT!11 Padmini Fletcher R.N. - 01/25/2016 8:07 AM CDT ED Primary Assessment Document Has Been Updated ED Primary Assessment Entered On: 01/25/2016 8:12 CDT Performed On: 01/25/2016 8:07 CDT by PADMINI FLETCHER RN Reason For Visit (As Of: 01/25/2016 08:12:17 CDT) Problems(Active) Acute Myocardial Infarction (ICD-9-CM :410 ) Name of Problem: Acute Myocardial Infarction ; Onset Date: 10/2005 ; Recorder: CATHY MCCOY MD; Confirmation: Confirmed ; Classification: UPDATE NEEDED ; Code: 410 ; Contributor System: PowerChart ; Last Updated: 11/09/2015 4:16 [employer] ; Life Cycle Date: 08/12/2009 ; Life Cycle Status: Active ; Responsible Provider: CATHY MCCOY MD; Vocabulary: ICD-9-CM Arterial stent (SNOMED CT :489537865 ) Name of Problem: Arterial stent ; Recorder: CATHY MCCYO MD; Confirmation: Confirmed ; Classification: Medical ; Code: 851275710 ; Contributor System:PowerChart ; Last Updated: 08/12/2009 9:32 [employer] ; Life Cycle Date: 08/12/2009 ; Life Cycle Status: Active ; Responsible Provider: CATHY MCCOY MD; Vocabulary: SNOMED CT Cardiac Arrest (ICD-9-CM :427.5 ) Name of Problem: Cardiac Arrest ; Recorder: CATHY MCCOY MD; Confirmation: Confirmed ; Classification: Medical ; Code: 427.5 ; Contributor System: PowerChart ; Last Updated: 08/12/2009 9:30 [employer] ; Life Cycle Date: 08/12/2009 ; Life Cycle Status: Active ; Responsible Provider: CATHY MCCOY MD; Vocabulary: ICD-9-CM Chronic pancreatitis NOS (ICD-9-CM :577.1 ) Name of Problem: Chronic pancreatitis NOS ; Onset Date: 07/16/2013 ; Recorder: JERICA ELLISON MD; Confirmation: Confirmed ; Classification: Medical ; Code:577.1 ; Last Updated: 07/16/2013 12:06 [employer] ; Life Cycle Status: Active ; Responsible Provider: JOAQUIN ELLISON MD; Vocabulary: ICD-9-CM Coronary artery disease-unsp. type vessel (ICD-9-CM :414.00 ) Name of Problem: Coronary artery disease-unsp. type vessel ; Recorder: CATHY MCCOY MD; Confirmation: Confirmed ; Classification: Medical ; Code: 414.00 ; Contributor System: PowerChart ; Last Updated: 03/10/2011 7:24 CDT ; LifeCycle Date: 08/12/2009 ; Life Cycle Status: Active ; Responsible Provider: CATHY MCCOY MD; Vocabulary: ICD-9-CM Diabetes mellitus without mention of complication, type II or unspecified type, not stated as uncontrolled (ICD-9-CM :250.00 ) Name of Problem: Diabetes mellitus without mention of complication, type II or unspecified type, not stated as uncontrolled ; Recorder: ESTEVAN DORADO RN; Confirmation: Con firmed ; Classification: Nursing ; Code: 250.00 ; Contributor System: PowerChart ; Last Updated: 03/10/2011 7:25 CDT ; Life Cycle Date: 03/23/2009 ; Life Cycle Status: Active ; Responsible Provider: ESTEVAN DORADO RN; Vocabulary: ICD-9-CM Family history of cancer (SNOMED CT :260028110 ) Name of Problem: Family history of cancer ; Recorder: CATHY MCCOY MD; Confirmation: Confirmed ; Classification: Medical ; Code: 487179427 ;Contributor System: PowerChart ; Last Updated: 08/12/2009 9:33 [employer] ; Life Cycle Date: 08/12/2009 ; Life Cycle Status: Active ; Responsible Provider: CATHY MCCOY MD; Vocabulary: SNOMED CT Family history of cataract (SNOMED CT :212732802 ) Name of Problem: Family history of cataract ; Recorder: CATHY MCCOY MD; Confirmation: Confirmed ; Classification: Medical ; Code: 502381556 ; Contributor System: PowerChart ; Last Updated: 08/12/2009 9:35 [employer] ; Life Cycle Date: 08/12/2009; Life Cycle Status: Active ; Responsible Provider: CATHY MCCOY MD; Vocabulary: SNOMED CT Family history of coronary artery disease (SNOMED CT :3289641446 ) Name of Problem: Family history of coronary artery disease ; Recorder: CATHY MCCOY MD; Confirmation: Confirmed ; Classification: Medical ; Code: 2515326017 ; Contributor System: PowerChart ; Last Updated: 08/12/2009 9:34 [employer] ; Life Cycle Date: 08/12/2009 ; Life Cycle Status: Active ; Responsible Provider: CATHY MCCOY MD; Vocabulary: SNOMED CT Family History of Diabetes Mellitus (ICD-9-CM :V18.0 ) Name of Problem: Family History of Diabetes Mellitus ; Recorder: CATHY MCCOY MD; Confirmation: Confirmed ; Classification: Medical ; Code: V18.0 ; Contributor System: PowerChart ; Last Updated: 08/12/2009 9:34 [employer] ; Life Cycle Date: ; Life Cycle Status: Active ; Responsible Provider: CATHY MCCOY MD; Vocabulary: ICD-9-CM Family history of glaucoma (ICD-9-CM :V19.1 ) Name of Problem: Family history of glaucoma ; Recorder: CATHY MCCOY MD; Confirmation: Confirmed ; Classification: UPDATE NEEDED ; Code: V19.1 ; Contributor System: PowerChart ; Last Updated: 11/09/2015 4:16 [employer] ; Life Cycle Date: 08/12/2009 ; Life Cycle Status: Active ; Responsible Provider: CATHY MCCOY MD; Vocabulary: ICD-9-CM Family history of renal stone (SNOMED CT :9844949196 ) Name of Problem: Family history of renal stone ; Recorder: CATHY MCCOY MD; Confirmation: Confirmed ; Classification: Medical ; Code: 5130997996 ; Contributor System: PowerChart ; Last Updated: 08/12/2009 9:36 [employer] ; Life Cycle Date: 08/12/2009 ; Life Cycle Status: Active ; Responsible Provider: CATHY MCCOY MD; Vocabulary:SNOMED CT Family history of sleep apnea (SNOMED CT :9592994759 ) Name of Problem: Family history of sleep apnea ; Recorder: CATHY MCCOY MD; Confirmation: Confirmed ; Classification: Medical ; Code: 2267478791 ; Contributor System: PowerChart ; Last Updated: 08/12/2009 9:34 [employer] ; Life Cycle Date: 08/12/2009 ; Life Cycle Status: Active ; Responsible Provider: CATHY MCCOY MD; Vocabulary:SNOMED CT Gout (ICD-9-CM :274 ) Name of Problem: Gout ; Recorder: CATHY MCCOY MD; Confirmation: Confirmed ; Classification: Medical ; Code: 274 ; Contributor System: PowerChart ; Last Updated: 01/22/2014 14:55 CDT ; Life Cycle Date: 08/12/2009 ; Life Cycle Status: Active ; Responsible Provider: CATHY MCCOY MD; Vocabulary: ICD-9-CM Helicobacter Pylori [h. Pylori] Infection in Conditions Classified Elsewhere and of Unspecified Site(ICD-9-CM :041.86 ) Name of Problem: Helicobacter Pylori [h. Pylori] Infection in Conditions Classified Elsewhere and of Unspecified Site ; Onset Date: 07/24/2013 ; Recorder: JERICA ELLISON MD; Confirmation: Confirmed ; Classification: Medical ; Code: 041.86 ; Last Updated: 07/24/2013 11:13 [employer] ; Life Cycle Status: Active ; Responsible Provider: JERICA ELLISON MD; Vocabulary: ICD-9-CM HTN [Hypertension] (ICD-9-CM :401.9 ) Name of Problem: HTN [Hypertension] ; Recorder: CATHY MCCOY MD; Confirmation: Confirmed ; Classification: Medical ; Code: 401.9 ; Contributor System: PowerChart ; Last Updated: 08/12/2009 9:29 [employer] ; Life Cycle Date: 08/12/2009 ; Life Cycle Status: Active ; Responsible Provider: CATHY MCCOY MD; Vocabulary: ICD-9-CM Hyperlipidemia (ICD-9-CM :272.4 ) Name of Problem: Hyperlipidemia ; Recorder: CATHY MCCOY MD; Confirmation: Confirmed ; Classification: Medical ; Code: 272.4 ; Contributor System: PowerChart ; Last Updated: 08/12/2009 9:29 [employer] ; Life Cycle Date: 08/12/2009 ; Life Cycle Status: Active ; Responsible Provider: CATHY MCCOY MD; Vocabulary: ICD-9-CM Proteinuria (ICD-10-CM :R80.9 ) Name of Problem: Proteinuria ; Recorder: CATHY MCCOY MD; Confirmation: Confirmed ; Classification: Medical ; Code: R80.9 ; Contributor System: PowerChart ; Last Updated: 12/02/2015 10:39 CDT ; Life Cycle Status: Active ; Responsible Provider: CATHY MCCOY MD; Vocabulary: ICD-10-CM Skin cancer (ICD-9-CM :173.9 ) Name of Problem: Skin cancer ; Recorder: CATHY MCCOY MD;Confirmation: Confirmed ; Classification: UPDATE NEEDED ; Code: 173.9 ; Contributor System: PowerChart ; Last Updated: 11/09/2015 4:16 [employer] ; Life Cycle Date: 03/02/2010 ; Life Cycle Status: Active ; Res ponsible Provider: CATHY MCCOY MD; Vocabulary: ICD-9-CM Diagnoses(Active) Abdominal pain Date: 01/25/2016 ; Diagnosis Type: Reason For Visit ; Confirmation: Complaint of ; Clinical Dx: Abdominal pain ; Classification: Medical ; Clinical Service: Emergency medicine ; Code: PNED ; Probability: 0 ; Diagnosis Code: [id number] Triage Chief Complaint Description : RLQ pain started monday evening worsening today veronika with movment pain at rest 12/19 eating ok no n/v last BM yesterday normal has appendix Hx of Pancreatitis this feels different Information Given By : Patient Present in Room During Exam/Procedure : Spouse Mode of Arrival ED : Private vehicle, Ambulatory Track : Medical Languages : Ch[place] Vital Signs Assessed : Yes GCS Assessed : Yes Treatments Prior to Arrival : None Is Patient Female and 13-50 no hysterectomy : No PADMINI FLETCHER RN - 01/25/2016 8:07 CDT Vital Signs Temperature Core : 36.6 DegC(Converted to: 97.9 DegF) Peripheral Pulse Rate : 63 /min Respiratory Rate : 16 /min Systolic Blood Pressure : 158 mmHg (HI) Diastolic Blood Pressure : 86 mmHg NIBP Mean : 110 mmHg BP Location : Right upper extremity SpO2 : 98 % Oxygen Therapy : Room air PADMINI FLETCHER RN - 01/25/2016 8:07 CDT [place] Coma Eye Opening Response [place] : Spontaneously Best Verbal Response [place] : Oriented Best Motor Response [place]ella : Obeys simple commands [place] Coma Score : 15 PADMINI FLETCHER RN - 01/25/2016 8:07 CDT Pain Assessment Pain Symptoms : Yes PADMINI FLETCHER RN - 01/25/2016 8:07 CDT JESSA JESSA Level 1 : No JESSA Level 2 : No JESSA Level 3 : Many GOLDEN PADMINI PRIEST RN - 01/25/2016 8:07 CDT DCP GENERIC CODE Tracking Acuity : 3 -Urgent Tracking Group : [facility] ED PADMINI FLETCHER RN - 01/25/2016 8:07 CDT Respiratory Airway : Patent Respirations : Unlabored Respiratory Pattern : Regular Oxygen Therapy : Room air Respiratory Detailed Assessment : Yes PADMINI FLETCHER RN - 01/25/2016 8:07 CDT Resp Detailed Respiratory Patient Stated Symptoms : None Cough : None PADMINI FLETCHER RN - 01/25/2016 8:07 CDT Breath Sounds Assessment Grid [place] : Clear RUL : Clear RML : Clear LLL : Clear RLL : Clear PADMINI FLETCHER RN - 01/25/2016 8:07 CDT Cardiovascular Heart Rhythm : Regular Skin Color : Normal for ethnicity Skin Description : Dry Skin Temperature : Warm Cardiovascular Detailed Assessment : Yes PADMINI FLETCHER RN - 01/25/2016 8:07 CDT CV Detailed CV Patient Stated Symptoms : None Nail Bed Color : [place] Capillary Refill : Less than 2 seconds Cardiac Rhythm : Sinus rhythm Ectopy Frequency : None Cardiovascular Note : cardiac arrest 10 years ago has 3 stents no cp since PADMINI FLETCHER RN - 01/25/2016 8:07 CDT Neurological Last Well Time Known : Not applicable Level of Consciousness : Alert Orientation : Oriented x 3 Characteristics of Speech : Clear Neuro Patient Stated Symptoms : None Gait : Steady Loss of Consciousness : No PADMINI FLETCHER RN - 01/25/2016 8:07 CDT ED Psychosocial Affect/Behavior : Calm, Cooperative Domestic Abuse Concerns : None Behavioral Health Screen/Safety Assmt : No PADMINI FLETCHER RN - 01/25/2016 8:07 CDT Gastrointestinal Nutrition ED : Adequate Nutrition ED Freetext : diabetic 25 years GI Detailed Assessment : Yes PADMINI FLETCHER RN - 01/25/2016 8:07 CDT GI Detailed GI Patient Stated Symptoms : Abdominal pain Bowel Movement Last Date : 01/24/2016 CDT Stool Color : Brown Stool Description : Soft Abdomen Description : Rounded Abdomen Palpation : Tender Tenderness : Right lower quadrant PADMINI FLETCHER RN - 01/25/2016 8:07 CDT Bowel Sounds Grid LUQ : Normoactive RUQ : Normoactive LLQ : Normoactive RLQ : Normoactive PADMINI FLETCHER RN - 01/25/2016 8:07 CDT /OB Assessment Patient Stated Symptoms : None Urine Description : Clear Urine Color : Yellow PADMINI FLETCHER RN - 01/25/2016 8:07 CDT Musculoskeletal Fall Prevention Education Provided : NA Activity Aba : Walks frequently Musculoskeletal Note : no problems PADMINI FLETCHER RN - 01/25/2016 8:07 CDT Social Habits Exposure to Tobacco Smoke : Other: non smoker Smoking Status : Never smoker Tobacco 2A : No Tobacco Use/Currently Using : No Tobacco Use/Last 30 Days : No Tobacco Use/Last 12 months : No PADMINI FLETCHER RN - 01/25/2016 8:07 CDT Alcohol Use Grid Alcohol Use : No Last Use : 15 years PADMINI FLETCHER RN - 01/25/2016 8:07 CDT Source: [facility] [employer] Document Id: [id number] CDT!112 Shruthi Shin R.N. - 01/25/2016 7:43 AM CDT ED Triage Assessment Document Has Been Updated ED Triage Assessment Entered On: 01/25/2016 7:47 CDT Performed On: 01/25/2016 7:43 CDT by SHRUTHI SHIN RN Reason For Visit (As Of: 01/25/2016 07:47:06 CDT) Problems(Active) Acute Myocardial Infarction (ICD-9-CM :410 ) Name of Problem: Acute Myocardial Infarction ; Onset Date: 10/2005 ; Recorder: CATHY MCCOY MD; Confirmation: Confirmed ; Classification: UPDATE NEEDED ; Code: 410 ; Contributor System: [employer] ; Last Updated: 11/09/2015 4:16 [employer] ; Life Cycle Date: 08/12/2009 ; Life Cycle Status: Active ; Responsible Provider: CATHY MCCOY MD; Vocabulary: ICD-9-CM Arterial stent (SNOMED CT :239429332 ) Name of Problem: Arterial stent ; Recorder: CATHY MCCOY MD; Confirmation: Confirmed ; Classification: Medical ; Code: 026202955 ; Contributor System:[employer] ; Last Updated: 08/12/2009 9:32 [employer] ; Life Cycle Date: 08/12/2009 ; Life Cycle Status: Active ; Responsible Provider: CATHY MCCOY MD; Vocabulary: SNOMED CT Cardiac Arrest (ICD-9-CM :427.5 ) Name of Problem: Cardiac Arrest ; Recorder: CATHY MCCOY MD; Confirmation: Confirmed ; Classification: Medical ; Code: 427.5 ; Contributor System: PowerChart ; Last Updated: 08/12/2009 9:30 [employer] ; Life Cycle Date: 08/12/2009 ; Life Cycle Status: Active ; Responsible Provider: CATHY MCCOY MD; Vocabulary: ICD-9-CM Chronic pancreatitis NOS (ICD-9-CM :577.1 ) Name of Problem: Chronic pancreatitis NOS ; Onset Date: 07/16/2013 ; Recorder: JERICA ELLISON MD; Confirmation: Confirmed ; Classification: Medical ; Code:577.1 ; Last Updated: 07/16/2013 12:06 [employer] ; Life Cycle Status: Active ; Responsible Provider: JOAQUIN ELLISON MD; Vocabulary: ICD-9-CM Coronary artery disease-unsp. type vessel (ICD-9-CM :414.00 ) Name of Problem: Coronary artery disease-unsp. type vessel ; Recorder: CATHY MCCOY MD; Confirmation: Confirmed ; Classification: Medical ; Code: 414.00 ; Contributor System: PowerChart ; Last Updated: 03/10/2011 7:24 CDT ; LifeCycle Date: 08/12/2009 ; Life Cycle Status: Active ; Responsible Provider: CATHY MCCOY MD; Vocabulary: ICD-9-CM Diabetes mellitus without mention of complication, type II or unspecified type, not stated as uncontrolled (ICD-9-CM :250.00 ) Name of Problem: Diabetes mellitus without mention of complication, type II or unspecified type, not stated as uncontrolled ; Recorder: ESTEVAN DORADO RN; Confirmation: Con firmed ; Classification: Nursing ; Code: 250.00 ; Contributor System: PowerChart ; Last Updated: 03/10/2011 7:25 CDT ; Life Cycle Date: 03/23/2009 ; Life Cycle Status: Active ; Responsible Provider: ESTEVAN DORADO RN; Vocabulary: ICD-9-CM Family history of cancer (SNOMED CT :816689509 ) Name of Problem: Family history of cancer ; Recorder: CATHY MCCOY MD; Confirmation: Confirmed ; Classification: Medical ; Code: 102921747 ;Contributor System: PowerChart ; Last Updated: 08/12/2009 9:33 [employer] ; Life Cycle Date: 08/12/2009 ; Life Cycle Status: Active ; Responsible Provider: CATHY MCCOY MD; Vocabulary: SNOMED CT Family history of cataract (SNOMED CT :391939338 ) Name of Problem: Family history of cataract ; Recorder: CATHY MCCOY MD; Confirmation: Confirmed ; Classification: Medical ; Code: 157668595 ; Contributor System: PowerChart ; Last Updated: 08/12/2009 9:35 [employer] ; Life Cycle Date: 08/12/2009; Life Cycle Status: Active ; Responsible Provider: CATHY MCCOY MD; Vocabulary: SNOMED CT Family history of coronary artery disease (SNOMED CT :2289834153 ) Name of Problem: Family history of coronary artery disease ; Recorder: CATHY MCCOY MD; Confirmation: Confirmed ; Classification: Medical ; Code: 3919421745 ; Contributor System: PowerChart ; Last Updated: 08/12/2009 9:34 [employer] ; Life Cycle Date: 08/12/2009 ; Life Cycle Status: Active ; Responsible Provider: CATHY MCCOY MD; Vocabulary: SNOMED CT Family History of Diabetes Mellitus (ICD-9-CM :V18.0 ) Name of Problem: Family History of Diabetes Mellitus ; Recorder: CATHY MCCOY MD; Confirmation: Confirmed ; Classification: Medical ; Code: V18.0 ; Contributor System: PowerChart ; Last Updated: 08/12/2009 9:34 [employer] ; Life Cycle Date: ; Life Cycle Status: Active ; Responsible Provider: CATHY MCCOY MD; Vocabulary: ICD-9-CM Family history of glaucoma (ICD-9-CM :V19.1 ) Name of Problem: Family history of glaucoma ; Recorder: CATHY MCCOY MD; Confirmation: Confirmed ; Classification: UPDATE NEEDED ; Code: V19.1 ; Contributor System: PowerChart ; Last Updated: 11/09/2015 4:16 [employer] ; Life Cycle Date: 08/12/2009 ; Life Cycle Status: Active ; Responsible Provider: CATHY MCCOY MD; Vocabulary: ICD-9-CM Family history of renal stone (SNOMED CT :6761192978 ) Name of Problem: Family history of renal stone ; Recorder: CATHY MCCOY MD; Confirmation: Confirmed ; Classification: Medical ; Code: 2897028873 ; Contributor System: PowerChart ; Last Updated: 08/12/2009 9:36 [employer] ; Life Cycle Date: 08/12/2009 ; Life Cycle Status: Active ; Responsible Provider: CATHY MCCOY MD; Vocabulary:SNOMED CT Family history of sleep apnea (SNOMED CT :8029661198 ) Name of Problem: Family history of sleep apnea ; Recorder: CATHY MCCOY MD; Confirmation: Confirmed ; Classification: Medical ; Code: 4469748805 ; Contributor System: PowerChart ; Last Updated: 08/12/2009 9:34 [employer] ; Life Cycle Date: 08/12/2009 ; Life Cycle Status: Active ; Responsible Provider: CATHY MCCOY MD; Vocabulary:SNOMED CT Gout (ICD-9-CM :274 ) Name of Problem: Gout ; Recorder: CATHY MCCOY MD; Confirmation: Confirmed ; Classification: Medical ; Code: 274 ; Contributor System: PowerChart ; Last Updated: 01/22/2014 14:55 CDT ; Life Cycle Date: 08/12/2009 ; Life Cycle Status: Active ; Responsible Provider: CATHY MCCOY MD; Vocabulary: ICD-9-CM Helicobacter Pylori [h. Pylori] Infection in Conditions Classified Elsewhere and of Unspecified Site(ICD-9-CM :041.86 ) Name of Problem: Helicobacter Pylori [h. Pylori] Infection in Conditions Classified Elsewhere and of Unspecified Site ; Onset Date: 07/24/2013 ; Recorder: JERICA ELLISON MD; Confirmation: Confirmed ; Classification: Medical ; Code: 041.86 ; Last Updated: 07/24/2013 11:13 [employer] ; Life Cycle Status: Active ; Responsible Provider: JERICA ELLISON MD; Vocabulary: ICD-9-CM HTN [Hypertension] (ICD-9-CM :401.9 ) Name of Problem: HTN [Hypertension] ; Recorder: CATHY MCCOY MD; Confirmation: Confirmed ; Classification: Medical ; Code: 401.9 ; Contributor System: PowerChart ; Last Updated: 08/12/2009 9:29 [employer] ; Life Cycle Date: 08/12/2009 ; Life Cycle Status: Active ; Responsible Provider: CATHY MCCOY MD; Vocabulary: ICD-9-CM Hyperlipidemia (ICD-9-CM :272.4 ) Name of Problem: Hyperlipidemia ; Recorder: CATHY MCCOY MD; Confirmation: Confirmed ; Classification: Medical ; Code: 272.4 ; Contributor System: PowerChart ; Last Updated: 08/12/2009 9:29 [employer] ; Life Cycle Date: 08/12/2009 ; Life Cycle Status: Active ; Responsible Provider: CATHY MCCOY MD; Vocabulary: ICD-9-CM Proteinuria (ICD-10-CM :R80.9 ) Name of Problem: Proteinuria ; Recorder: CATHY MCCOY MD; Confirmation: Confirmed ; Classification: Medical ; Code: R80.9 ; Contributor System: PowerChart ; Last Updated: 12/02/2015 10:39 CDT ; Life Cycle Status: Active ; Responsible Provider: CATHY MCCOY MD; Vocabulary: ICD-10-CM Skin cancer (ICD-9-CM :173.9 ) Name of Problem: Skin cancer ; Recorder: CATHY MCCOY MD;Confirmation: Confirmed ; Classification: UPDATE NEEDED ; Code: 173.9 ; Contributor System: PowerChart ; Last Updated: 11/09/2015 4:16 [employer] ; Life Cycle Date: 03/02/2010 ; Life Cycle Status: Active ; Res ponsible Provider: CATHY MCCOY MD; Vocabulary: ICD-9-CM Diagnoses(Active) Abdominal pain Date: 01/25/2016 ; Diagnosis Type: Reason For Visit ; Confirmation: Complaint of ; Clinical Dx: Abdominal pain ; Classification: Medical ; Clinical Service: Emergency medicine ; Code: PNED ; Probability: 0 ; Diagnosis Code: [id number] Triage Chief Complaint Description : right lower abd pain since monday, slight nauses this am, aggravated with movement, unknown fever Information Given By : Patient Present in Room During Exam/Procedure : Spouse Mode of Arrival ED : Private vehicle, Ambulatory Track : Medical Languages : Chadian Vital Signs Assessed : Yes GCS Assessed : Yes Treatments Prior to Arrival : None Is Patient Female and 13-50 no hysterectomy : No USAMAMARISSA SHRUTHIISI MASTERS RN - 01/25/2016 7:43 CDT Vital Signs Temperature Oral : 36.4 DegC(Converted to: 97.5 DegF) Peripheral Pulse Rate : 68 /min Respiratory Rate : 20 /min Systolic Blood Pressure : 164 mmHg (>HHI) Diastolic Blood Pressure : 81 mmHg NIBP Mean : 109 mmHg BP Location : Left upper extremity SpO2 : 97 % Oxygen Therapy : Room air Actual Weight : 112 kg Actual Weight Conversion to Pounds : 246.4 lb Weight Source : Standing scale SHRUTHI SHIN RN - 01/25/2016 7:43 CDT [place] Coma Eye Opening Response [place] : Spontaneously Best Verbal Response Carmella : Oriented Best Motor Response Carmella : Obeys simple commands Carmella Coma Score : 15 SHRUTHI SHIN RN - 01/25/2016 7:43 CDT Pain Assessment Pain Symptoms : Yes SHRUTHI SHIN RN - 01/25/2016 7:43 CDT Pain Scale Pain Scale Verbal 0-10 : Open SHRUTHI SHIN RN - 01/25/2016 7:43 CDT Pain Pain Assessment Grid Pain 1 Location : Abdomen Intensity : 8 Aggravating Factors : Movement SHRUTHI SHIN RN - 01/25/2016 7:43 CDT JESSA JESSA Level 1 : No JESSA Level 2 : No JESSA Level 3 : Many Vital Signs JESSA : No SHRUTHI SHIN RN - 01/25/2016 7:43 CDT DCP GENERIC CODE Tracking Acuity : 3 -Urgent Tracking Group : SHRUTHI KNUTSON ED, RN - 01/25/2016 7:43 CDT Allergy (As Of: 01/25/2016 07:47:06 CDT) Allergies (Active) Adhesive Bandage Estimated Onset Date: Unspecified ; Reactions: Rash ; Created By: NOREEN HERNANDEZ LPN; Reaction Status: Active ; Category: Drug ; Substance: Adhesive Bandage ; Type: Allergy ; Updated By: NOREEN HERNANDEZ LPN; Reviewed Date: 12/02/2015 10:01 CDT aspirin Estimated Onset Date: Unspecified ; Reactions: Nosebleeds ; Created By: CECILIO MCCOY MD; Reaction Status: Active ; Category: Drug ; Substance: aspirin ; Type: Allergy ; Updated By: CATHY MCCOY MD; Reviewed Date: 12/02/2015 10:01 CDT Bee Stings Estimated Onset Date: Unspecified ; Created By: AMANDEEP BURRELL LPN; Reaction Status: Active ; Category: Environment ; Substance: Bee Stings ; Updated By: AMANDEEP BURRELL LPN; ReviewedDate: 12/02/2015 10:01 CDT clindamycin Estimated Onset Date: Unspecified ; Created By: AMANDEEP BURRELL LPN; Reaction Status:Active ; Category: Drug ; Substance: clindamycin ; Updated By: AMANDEEP BURRELL LPN; Reviewed Date: 12/02/2015 10:01 CDT Lipitor Estimated Onset Date: Unspecified ; Reactions: Chest Pain:Pressure/Tightness ; Created By: AMANDEEP BURRELL LPN; Reaction Status: Active ; Category: Drug ; Substance: Lipitor ; Type: Allergy ; Updated By: AMANDEEP BURRELL LPN; Reviewed Date: 12/02/2015 10:01 CDT penicillin Estimated Onset Date: Unspecified ; Reactions: Hives, SOB - Shortness of breath ; CreatedBy: AMANDEEP BURRELL LPN; Reaction Status: Active ; Category: Drug ; Substance: penicillin ; Type:Allergy ; Updated By: AMANDEEP BURRELL LPN; Reviewed Date: 12/02/2015 10:01 CDT ID Screen Drug Resistant Organism : No SHRUTHI SHIN RN - 01/25/2016 7:43 CDT Immunizations Pneumovac : Last 5 years Influenza : This year SHRUTHI SHIN RN - 01/25/2016 7:43 CDT [facility] Document Id: [id number] CDT!53 documented in this encounter Miscellaneous Notes Telephone Encounter - Diana Mcghee - 01/25/2016 10:54 AM CDT FW: Follow Up with Primary Care Document Contains Addenda Addendum by LAYLA SOLORZANO on January 25, 2016 11:00:03 CDT From: LAYLA SOLORZANO ([place] [facility]) To: ANNABEL BURGESS; Sent: 01/25/2016 11:00:03 CDT Subject: FW: Follow Up with Primary Care From: DIANA MCGHEE ([place] [facility]) To: [place] [facility]; Sent: 01/25/2016 10:54:54 CDT Subject: FW: Follow Up with Primary Care Primary Provider: Dr Mccoy Follow Up Request: Follow Up with Primary Care Date Requested: January 25, 2016 10:35:40 CDT Ed Location: [facility] ED Attending: HAN POE MD Order placed from order screen by provider Order Provider: --- Follow Up Time Frame: --- Reason for Request: --- Special Instructions: --- Consulting Physician: --- Consulting Department: --- Rule placed order based on provider documentaton Note: Order created from documentation in the Follow Up section Documented by: HAN POE MD Follow Up Within: 2 - 4 days Follow Up On: -- Follow Up Address: -- Follow Up Comments: RLQ pain Source: [facility] POWERCHART Document Id: [id number] Miscellaneous - Conversion, Historical Provider Ser - 01/25/2016 10:44 AM CDT Coding Summary-Paper Based CODING DATE: 02/02/2016 FINAL [facility] STATUS: * Discharged to Home or Self Care PAYOR: Medicare Advantage ADMIT DX: R10.31 Right lower quadrant pain REASON FOR VISIT DX: R10.31 Right lower quadrant pain FINAL DX: PRINCIPAL: R10.31 Right lower quadrant pain SECONDARY: R11.0 Nausea I10 Essential (primary) hypertension E11.9 Type 2 diabetes mellitus without 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 However, the narrative phrase printed from the coding software may appear abbreviated, or result in slightly different terminology. Coded By: SANDRA BUSBY Date Saved: 02/02/2016 09:45 am Source: [employer] Document Id: [id number] Amor - Padmini Fletcher R.N. - 01/25/2016 10:30 AM CDT Valuables/Belongings Valuables/Belongings Entered On: 01/25/2016 10:30 CDT Performed On: 01/25/2016 10:30 CDT by PADMINI FLETCHER RN Valuables/Belongings Belongings Sent Home With : pt PADMINI FLETCHER RN - 01/25/2016 10:30 CDT Source: [employer] Document Id: [id number] CDT!3 Amor - Padmini Fletcher R.N. - 01/25/2016 10:25 AM CDT Communication Note Communication Note Entered On: 01/25/2016 10:25 CDT Performed On: 01/25/2016 10:25 CDT by PADMINI FLETCHER RN Communication Subject of Note : Other: back from ct results shared with pt afebrile refusing anything for pain afebrile PADMINI FLETCHER RN - 01/25/2016 10:25 CDT Source: [employer] Document Id: [id number] CDT!3 Padmini Mac, R.N. - 01/25/2016 9:39 AM CDT Communication Note Communication Note Entered On: 01/25/2016 9:40 CDT Performed On: 01/25/2016 9:39 CDT by PADMINI FLETCHER RN Communication Subject of Note : Other: refusing anything for pain PADMINI FLETCHER RN - 01/25/2016 9:39 CDT [facility] Document Id: [id number] CDT!3 Miscellaneous - Padmini Fletcher R.N. - 01/25/2016 7:40 AM CDT Facility Charge Ticket 2.0 11.0 DX Facility Charge Ticket 2.0 11.0 DX Entered On: 01/25/2016 10:30 CDT Performed On: 01/25/2016 7:40 CDT by PADMINI FLETCHER RN Facility Charge Ticket 2.0 11.0 DX ED Other Charges : Standard ED Encounter TVL Level Translated RTF : Abdominal pain TVL:4 TVL Level for Facility Charge Ticket : Level 4 Arrival Mode Calc : 1 Mode of Arrival ED : Private vehicle, Ambulatory [facility] Mode of Arrival Interpreted : Standard [facility] Process Management : None Order Management RTF : Laboratory CBC (includes Auto Differential),01/25/16 08:13,HAN POE MD Completed Comprehensive Metabolic Panel,01/25/16 08:13,HAN POE MD Completed Lipase Level,01/25/16 08:13,HAN POE MD Completed Urinalysis with Microscopic,01/25/16 08:13,HAN POE MD Completed Stool Occult Blood x1-Diagnostic,01/25/16 08:18,HAN POE MD Completed Automated Diff-5 Part,01/25/16 08:49,HAN POE MD Completed CT / MRI / Ultrasound CT Abdomen/Pelvis w/ contrast,01/25/16 08:18,HAN POE MD Completed [facility] Order Management : CT/MRI/Ultrasound, Lab tests 30 Minutes Critical Care : No Nursing Notes RTF : Triage Forms ED Triage Assessment,01/25/16 07:43,SHRUTHI SHIN RN Nursing Notes ED Primary Assessment,01/25/16 08:07,PADMINI FLETCHER [employer] Nurse Reassess,01/25/16 09:55,PADMINI FLETCHER [employer] Nurse Reassess,01/25/16 09:02,PADMINI FLETCHER [employer] Pain Assessment,01/25/16 09:39,PADMINI FLETCHER RN Communication Note,01/25/16 10:25,PADMINI FLETCHER RN Communication Note,01/25/16 09:39,PADMINI FLETCHER RN [facility] Nursing Assessment : Triage and 3-5 nursing assessments Treatments Prior to Arrival : None PADMINI FLETCHER RN - 01/25/2016 10:30 CDT [facility] Document Id: [id number] CDT!15 documented in this encounter Plan of Treatment Not on filedocumented as of this encounter Procedures Procedure Name Priority Date/Time Associated Comments Diagnosis URINALYSIS WITH Routine 01/25/2016 9:43 AM Result s for this MICROSCOPIC CDT procedure are i n the results section. POCT HEMOCCULT - Routine 01/25/2016 9:43 AM Resul ts for this NURSING CDT procedure are i n the results section. CT ABDOMEN PELVIS WITH Routine 01/25/2016 9:28 AM Results for this IV CONTRAST CDT procedure are i n the results section. AUTOMATED Routine 01/25/2016 8:44 AM Results f or this DIFFERENTIAL, B CDT procedure ar e in the results section. CBC WITH DIFFERENTIAL, Routine 01/25/2016 8:44 AM Results for this B CDT procedure are i n the results section. LIPASE, S/P Routine 01/25/2016 8:44 AM Results f or this CDT procedure are i n the results section. COMPREHENSIVE Routine 01/25/2016 8:44 AM Results for this METABOLIC PANEL, S/P CDT procedu re are in the results section. documented in this encounter Results Hemmoccult, POCT (nursing) (01/25/2016 9:43 AM CDT) athologist Signature HXOccult Bld Negative Negative POWERCHART Stl I Specimen (Source) Anatomical Collection Method Collection Time Re ceived Time Location / / Volume Laterality Stool 01/25/2016 9:43 AM CDT Han Poe M.D. LAB POCT ORDERABLES-MANUAL Performing Organization Address City/State/ZIP Code Phon e Number POWERCHART (ABNORMAL) Urinalysis, Complete, Includes Microscopic (01/25/2016 9:43 AM CDT) Patholo gist Method Time Signature HXUr Color Yellow Yellow POWERCHART Clarity Clear Clear POWERCHART Glucose Negative Negative POWERCHART HXBILIRUBIN Negative Negative POWERCHART Ketones, QL(U) Negative Negative POWERCHART Specific 1.042 (H) 1.001 - POWERCHART [place], POCT, 1.035 U HXBLOOD Trace (A) Negative POWERCHART pH, POCT, Urine 5.5 POWERCHART Comment: Reference Range pH: 5.0-8.0 Protein, Ur, Dip 30 (A) Negative MGDL POWERCHAR T Urobilinogen 0.2 0.2 MGDL POWERCHART Comment: Reference Range Urobilinogen: 0.2-1.0 mg/dL HXNITRITE Negative Negative POWERCHART Leukocyte Esterase Negative Negative POWERCHART HXUR WBC. None Seen None Seen HPF POWERCHART HXUR RBC. Occ-2 None Seen HPF POWERCHART Casts, Hyaline 1-3 (A) None Seen LPF POWERCHART Specimen (Source) Anatomical Collection Method Collection Time Re ceived Time Location / / Volume Laterality Urine, First 01/25/2016 9:43 AM Voided CDT Han Poe M.D. LAB URINE ORDERABLES Performing Organization Address City/State/ZIP Code Phon e Number POWERCHART CT Abdomen Pelvis with IV Contrast (01/25/2016 9:28 AM CDT) Anatomical Region Laterality Modality Abdomen, Pelvis N/A Computed Tomography Specimen (Source) Anatomical Collection Method Collection Time Re ceived Time Location / / Volume Laterality 01/25/2016 9:28 AM CDT Addenda Addendum by Provider, Junior Worthington 01/25/2016 9:28 AM CDT RAD^^^MA CT Abdomen/Pelvis w/ contrast 01/25/2016 09:28:09 Impressions 01/25/2016 9:52 AM CDT 1. Normal-appearing appendix. 2. No acute intra-abdominal/pelvic patho logy. 3. Other stable incidental nonacute find ings as described above. Narrative 01/25/2016 9:52 AM CDT History: 70 year - old male with right l ower quadrant abdominal pain Comparison: 06/20/2013 Technique: 1.[address] slices were obtained from the lung bases through the symphysis pubis after the ad ministration of 100 cc of Omnipaque 350 IV contrast. Coronal image s were reconstructed from source images. FINDINGS: Lung bases: No acute airspace opacity in the bilateral bases. Coronary artery and thoracic aortic athe rosclerotic changes again observed, stable. Abdomen and pelvis: Normal-appearing cecile endix in the right lower quadrant on image 48 through 52 of serie s 2. There is no free intraperitoneal air, free fluid, fluid c ollection, or abscess. Mild aortoiliac atherosclerotic changes are o bserved. Unchanged rounded low attenuating renal cortical structure s bilaterally that are too small to characterize but statistically most likely to represent simple cysts. Pancreatic calcifications proximally and atrophy of the pancreas throughout are stable. The live r, spleen, adrenal glands, and gallbladder are unremarkable. Bones: No lytic or blastic bone lesions are identified. Procedure Note Narinder Cazares M.D. / Provider, Leela orta M.D. - 01/13/2017 History: 70 year - old male with right l ower quadrant abdominal pain Comparison: 06/20/2013 Technique: 1.[address] slices were obtained from the lung bases through the symphysis pubis after the ad ministration of 100 cc of Omnipaque 350 IV contrast. Coronal image s were reconstructed from source images. FINDINGS: Lung bases: No acute airspace opacity in the bilateral bases. Coronary artery and thoracic aortic athe rosclerotic changes again observed, stable. Abdomen and pelvis: Normal-appearing cecile endix in the right lower quadrant on image 48 through 52 of serie s 2. There is no free intraperitoneal air, free fluid, fluid c ollection, or abscess. Mild aortoiliac atherosclerotic changes are o bserved. Unchanged rounded low attenuating renal cortical structure s bilaterally that are too small to characterize but statistically most likely to represent simple cysts. Pancreatic calcifications proximally and atrophy of the pancreas throughout are stable. The live r, spleen, adrenal glands, and gallbladder are unremarkable. Bones: No lytic or blastic bone lesions are identified. IMPRESSION: 1. Normal-appearing appendix. 2. No acute intra-abdominal/pelvic patho logy. 3. Other stable incidental nonacute find ings as described above. Karina Black R.T.(R)(CT), R.T.(R) IMG CT PROCEDURES Automated Differential (01/25/2016 8:44 AM CDT) P athologist Signature Absolute 2.89 1.70 - POWERCHART Neutrophils 7.00 109L Lymphocytes 2.04 0.90 - POWERCHART 2.90 X109L Monocytes 0.61 0.30 - POWERCHART 0.90 X109L Eosinophils 0.08 0.05 - POWERCHART 0.50 X109L Absolute 0.01 0.00 - POWERCHART Basophil 0.30 X109L Specimen Anatomical Collection Method Collection Time Receive d Time (Source) Location / / Volume Laterality Blood 01/25/2016 8:44 AM 6 8:44 CDT AM CDT Han Poe M.D. LAB BLOOD ADD-ON Performing Organization Address City/State/ZIP Code Phon e Number POWERCHART (ABNORMAL) CBC with Differential (01/25/2016 8:44 AM CDT) Analysis Performed At Patho logist Time Signature Leukocytes 5.6 3.5 - 10.5 POWERCHART X109L Erythrocytes 4.29 (L) 4.32 - POWERCHART 5.72 E0913T Hemoglobin 14.2 13.5 - POWERCHART 17.5 GDL Hematocrit 42.8 38.8 - POWERCHART 50.0 MCV 99.8 (H) 81.2 - POWERCHART 95.1 FL HX RDW 14.2 11.8 - POWERCHART 15.6 Platelet Count 209 150 - 450 POWERCHART X109L Specimen (Source) Anatomical Collection Method Collection Time Re ceived Time Location / / Volume Laterality Blood 01/25/2016 8:44 AM CDT Han Poe M.D. LAB BLOOD ADD-ON Performing Organization Address City/State/ZIP Code Phon e Number POWERCHART (ABNORMAL) Lipase (01/25/2016 8:44 AM CDT) P athologist Signature Lipase, S 6 (L) 13 - 60 UL POWERCHART Specimen (Source) Anatomical Collection Method Collection Time Re ceived Time Location / / Volume Laterality Blood 01/25/2016 8:44 AM CDT Han Poe M.D. LAB BLOOD ADD-ON Performing Organization Address City/State/ZIP Code Phon e Number POWERCHART (ABNORMAL) CMP (Comprehensive Metabolic Panel) (01/25/2016 8:44 AM CDT) Patholo gist Method Time Signature Sodium, S 137 135 - 145 POWERCHART MMOLL Potassium, S 4.5 3.5 - 5.1 POWERCHART MMOLL Chloride, S 104 98 - 107 POWERCHART MMOLL Total Protein, S 6.8 6.3 - 7.9 POWERCHART GDL Albumin, S 4.2 3.5 - 5.2 POWERCHART GDL CO2 Total 22 22 - 29 POWERCHART MMOLL Glucose 217 (H) 70 - 140 POWERCHART MGDL BUN (Blood Urea 25 (H) 6 - 24 POWERCHART Nitrogen), S MGDL Creatinine 1.1 0.8 - 1.3 POWERCHART MGDL Calcium, Total, S 9.7 8.8 - 10.3 POWERCHART MGDL Alkaline 100 40 - 130 POWERCHART Phosphatase, S UL Aspartate 21 8 - 48 UL POWERCHART Aminotransferase (AST), S Alanine 21 7 - 55 UL POWERCHART Amniotransferase, LD Bilirubin, Total, S 0.4 <=1.2 MGDL POWERCHAR T Anion Gap 11 7 - 15 POWERCHART MMOLL eGFR Black/ >60 >=60 POWERCHART [place] MLMINSA HXeGFR (MDRD) >60 >=60 POWERCHART MLMINSA Comment: Results are in mL/min/1.73m squared CKD Stage I: ? GFR > 90 CKD Stage II: ?GFR 60 to 89 CKD Stage III: ? GFR 30 to 59 CKD Stage IV: ? GFR 15 to 29 CKD Stage V: ?GFR < 15 or Dialysi s Specimen (Source) Anatomical Collection Method Collection Time Re ceived Time Location / / Volume Laterality Blood 01/25/2016 8:44 AM CDT Han Poe M.D. LAB BLOOD ADD-ON Performing Organization Address City/State/ZIP Code Phon e Number POWERCHART documented in this encounter Visit Diagnoses Not on filedocumented in this encounter
--- OUTSIDE RECORDS SUMMARY | 2022-05-24 18:27 | XMS_ITS | Encounter Summary ---
:1945 Author Organization [facility] Address [address] [place] [address] Care Team Providers Name Role Phone Nikia Mccoy M.D. Primary Care Provider Unavailable Encounter Details Date Type Department Care Team Description 03/30/2017 Hospital Encounter HX [facility] Jerica Freeman M. D. Social History Tobacco Use Types [...] or relatives? How often do you attend druze or More than 4 times per year 06/14/2019 restoration services? Do you belong to any clubs or Yes 06/14/2019 organizations such as druze groups, unions, fraternal or athletic groups, or [...] Sign Reading Time Taken Comments Blood Pressure 104/58 03/30/2017 8:37 AM CDT Pulse 66 03/30/2017 8:37 AM CDT Temperature - - Respiratory Rate 18 03/30/2017 8:37 AM CDT Oxygen Saturation - - Inhaled Oxygen Concentration - - Weight 112 kg (247 lb 2.2 oz) 03/30/2017 8:37 AM CDT Height 174 cm (5' 8.5) 03/30/2017 8:37 AM CDT Body Mass Index 37.03 03/30/2017 8:37 AM CDT documented in this encounter Medications [...] pm E11.9, 60 mL, injection 4 Refill(s) [id number]-[id number] Take 2 capsules by 0 03/3011/08/2017 e [...] encounter Progress Notes Jerica Ellison M.D. 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 PRIMARY PHYSICIAN: Nikia Mccoy M.D. HISTORY OF PRESENT ILLNESS Mr. Chance returns to the clinic for followup. The patient has occasional loose stools, but no weight loss, no abdominal pain. He is otherwise doing well. The patient takes anywhere from 6 to 8 pancrelipase pills per day at approximately 2 to 3 pills per meal in order to control his exocrine pancreatic insufficiency. The patient denied having any symptoms, other than occasional loss and of his balance that the patient is attributing to his age at 72. PHYSICAL EXAMINATION VITAL SIGNS: Temperature 36.4, pulse 66, respiratory rate 18, blood pressure 104/58. Weight is 112.1kg, body mass index 37. ABDOMEN: Round, soft, nontender. Bowel sounds present. Normoactive. CT scan and MRI of the pancreas were reviewed from 2012 to 2015. The patient has significant atrophyof the pancreatic body and tail with multiple stones distributed throughout the pancreatic remnant with a large calcific stone lodged in the head of the pancreas with a dilated pancreatic duct. 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 PLAN: Continue pancrelipase for another year. Check vitamin B12 level and vitamin A and vitamin E level for the possibility of supplementation and a fat soluble vitamin deficiency. Return to the clinicin 1 year for followup. The patient will be notified for vitamin supplementation if those vitamin levels are noted to be low. Juliano Ellison M.D./pos cc: Nikia Mccoy M.D. [facility] [place] in [address] [address] Electronically Signed By: JERICA ELLISON MD On: 04/20/2017 02:47 PM Source: [facility] [email or web address] Document Id: [id number] documented in this encounter Miscellaneous Notes Miscellaneous - Jerica Ellison M.D. - 03/30/2017 9:05 AM CDT Ambulatory Patient Summary [address] [place], [place] [id number] Visit Information Name: JORGE CHANCE [facility] Number: [id number] Current Date: 03/30/2017 09:04:58 Physicians Attending Provider: JERICA ELLISON MD Primary [...] lispro (HumaLOG Mix 75/25 subcutaneous suspension) See [id number] am and 75 pm E11.9 lisinopril (lisinopril 5 mg oral [...] 2 cap, Oral, three times a day Routed to [address] [address] phenylephrine nasal (phenylephrine 0.5% nasal spray) as needed for allergies simethicone (Gas-X) 80 mg, , as needed sodium chloride nasal (Saline Nasal Mist nasal spray) 2 Elk(s), Nostrils(Both), four times a day as needed for Dry nasal passages Stop Taking the Following Medications: Medication list as of 03-30-17 09:05 Attention: If you have any medications at [...] Electronically Signed By: JERICA ELLISON MD Signed On:30-MAR-2017 09:04:15 Your Allergies & Intolerances Substance Reaction Symptoms [...] if you dont have one. Go to [email or web address] and click on Create Your Account. Then, follow the directions to complete the online form. Youll be asked for your [facility] number which you can find at the top of this document. Your Goals/Additional instructions: Source: [facility] POWERCHART Document Id: [id number] Miscellaneous - Jerica Ellison M.D. - 03/30/2017 9:04 AM CDT Ambulatory Discharge Medication List [address] [place], [place] [id number] Visit Information Name: JORGE CHANCE [facility] Number: [id number] Current Date: 03/30/2017 09:04:57 Attending Provider: JERICA ELLISON MD Primary Care [...] lispro (HumaLOG Mix 75/25 subcutaneous suspension) See [id number] am and 75 pm E11.9 lisinopril (lisinopril 5 mg oral [...] 2 cap, Oral, three times a day Routed to [address] [address] phenylephrine nasal (phenylephrine 0.5% nasal spray) as needed for allergies simethicone (Gas-X) 80 mg, , as needed sodium chloride nasal (Saline Nasal Mist nasal spray) 2 Elk(s), Nostrils(Both), four times a day as needed for Dry nasal passages Stop Taking the Following Medications: Medication list as of 03-30-17 09:04 Attention: If you have any medications at [...] Electronically Signed By: JERICA ELLISON MD Signed On:30-MAR-2017 09:04:15 Additional Information: Source: [facility] POWERCHART Document Id: [id number] Miscellaneous - Cintia Thakkar - 03/30/2017 8:37 AM CDT Adult Air Technician Intake/History Adult Air Technician Intake/History Entered On: 03/30/2017 8:41 CDT Performed On: 03/30/2017 8:37 CDT by CINTIA THAKKAR LPN Intake Chief Complaint : Chronic Pancreatitis Temperature Core : 36.4 DegC(Converted to: 97.5 DegF) (LOW) Peripheral Pulse Rate : 66 /min Respiratory Rate : 18 /min Systolic Blood Pressure : 104 mmHg Diastolic Blood Pressure : 58 mmHg NIBP Mean : 73 mmHg BP Location : Left upper extremity Blood Pressure Cuff Size : Regular Height : 174 cm(Converted to: 5 ft 9 inch(es), 69 inch(es)) Actual Weight : 112.1 kg(Converted to: 247 lb 2 oz) Dosing Weight Clinic : 112.1 kg Clinic BSA : 2.33 Body Mass Index : 37.03 kg/m2 CINTIA THAKKAR LPN - 03/30/2017 8:37 CDT General Info Information Given By : Patient Languages : Martiniquais Is Patient Female and 13-50 no hysterectomy : No CINTIA THAKKAR LPN - 03/30/2017 8:37 CDT Subjective Pain Symptoms : No CINTIA THAKKAR LPN - 03/30/2017 8:37 CDT Dependent Habits Exposure to Tobacco Smoke : Other: non smoker Smoking Status : Never smoker Tobacco 2A : No Tobacco Use/Currently Using : No Tobacco Use/Last 30 Days : No Tobacco Use/Last 12 months : No Alcohol Use : No CINTIA THAKKAR TONGSMAN - 03/30/2017 8:37 CDT Caffeine Use Grid Caffeine Use : Current Type : Coffee Frequency : Daily CINTIA THAKKAR TONGSMAN - 03/30/2017 8:37 CDT Source: [facility] POWERCHART Document Id: [id number] CDT!35 documented in this encounter Plan of Treatment Not on filedocumented as of this encounter Procedures Procedure Name Priority Date/Time Associated Diagnosis Comme nts VITAMIN A, S Routine 03/30/2017 9:31 AM Results f or this CDT procedure are i n the results section. VITAMIN E, S Routine 03/30/2017 9:31 AM Results f or this CDT procedure are i n the results section. VITAMIN B12 ASSAY, Routine 03/30/2017 9:31 AM Res ults for this S CDT procedure are i n the results section. CBC WITHOUT Routine 03/30/2017 9:24 AM Results f or this DIFFERENTIAL, B CDT procedure ar e in the results section. documented in this encounter Results Vitamin A Level (03/30/2017 9:31 AM CDT) P athologist Signature Vitamin A 44.5 32.5 - 78.0 POWERCHART MCGDL Comment: ADDITIONAL INFORMATIO N This test was developed and its performa nce characteristics determined by [facility] in a manner co nsistent with CLIA requirements. This test has not been luke ared or approved by the U.S. Food and Drug Administration. Test Performed by: [address] [address] Specimen (Source) Anatomical Collection Method Collection Time Re ceived Time Location / / Volume Laterality Blood 03/30/2017 9:31 AM CDT Jerica Ellison M.D. LAB BLOOD NON ADD-ON Performing Organization Address City/[facility]/ZIP Code Phon e Number POWERCHART POWERCHART NA (ABNORMAL) Vitamin E (03/30/2017 9:31 AM CDT) P athologist Signature Vitamin E 2.3 (L) 5.5 - 17.0 POWERCHART MGL Comment: In this sample, the alpha-tocopherol (vi tamin E) level indicates a severe deficiency. ADDITIONAL INFORMATIO N This test was developed and its performa nce characteristics determined by [facility] in a manner co nsistent with CLIA requirements. This test has not been luke ared or approved by the U.S. Food and Drug Administration. Test Performed by: [address] [address] Specimen (Source) Anatomical Collection Method Collection Time Re ceived Time Location / / Volume Laterality Blood 03/30/2017 9:31 AM CDT Jerica Ellison M.D. LAB BLOOD NON ADD-ON Performing Organization Address [facility] Phon e Number POWERCHART POWERCHART NA Vitamin B12 Assay (03/30/2017 9:31 AM CDT) athologist Signature Vitamin B12 316 483 - 0601 POWERCHART Assay, S PGML Comment: Biotin has been identified by the [facility] as a potential interfering substance. Higher concentrations of biotin may be found in multivitamins, hair/nail supplements, and workout supplements. If the result does not match clinical observat ions, repeat testing after patient refrains from the use of supplements for at least 12 hours. Specimen (Source) Anatomical Collection Method Collection Time Re ceived Time Location / / Volume Laterality Blood 03/30/2017 9:31 AM CDT Jerica Ellison M.D. LAB BLOOD ADD-ON Performing Organization Address City/[facility]/ZIP Code Phon e Number POWERCHART POWERCHART NA (ABNORMAL) CBC without Differential (03/30/2017 9:24 AM CDT) Patholo gist Method Time Signature Leukocytes 6.6 3.5 - 10.5 POWERCHART X109L Erythrocytes 4.33 4.32 - POWERCHART 5.72 [id number] Hemoglobin 14.7 13.5 - POWERCHART 17.5 GDL Hematocrit 43.7 38.8 - POWERCHART 50.0 MCV 100.9 (H) 81.2 - POWERCHART 95.1 FL HX RDW 13.9 11.8 - POWERCHART 15.6 Platelet Count 189 150 - 450 POWERCHART X109L Specimen (Source) Anatomical Collection Method Collection Time Re ceived Time Location / / Volume Laterality Blood 03/30/2017 9:24 AM CDT Jerica Ellison M.D. LAB BLOOD ADD-ON Performing Organization Address City/State/ZIP Code Phon e Number POWERCHART POWERCHART NA documented in this encounter Visit Diagnoses Not on filedocumented in this encounter Care Teams Stoker Installation Mechanic Relationship Specialty Start Date End Date Nikia Mccoy M.D. PCP - General 02/23/17 12/18/19 documented as of this encounter
--- OUTSIDE RECORDS SUMMARY | 2022-05-24 18:28 | XMS_ITS | Encounter Summary ---
:1945 Author Organization [facility] Address [address] [place] [address] Care Team Providers Name Role Phone Unavailable Primary Care Provider Unavailable Encounter Details Date Type Department Care Team Description 02/27/2015 Hospital Encounter HX [facility] Cathy Rosenthal M.D. Social History Tobacco Use [...] Sign Reading Time Taken Comments Blood Pressure 114/70 02/27/2015 9:34 AM CDT Pulse 60 02/27/2015 9:34 AM CDT Temperature - - Respiratory Rate 20 02/27/2015 9:34 AM CDT Oxygen Saturation - - Inhaled Oxygen Concentration - - Weight 111 kg (244 lb 11.4 oz) 02/27/2015 9:34 AM CDT Height 194 cm (6' 4.38) 02/27/2015 9:34 AM CDT Body Mass Index 29.49 02/27/2015 9:34 AM CDT documented in this encounter Medications [...] ORAL needed. documented as of this encounter Progress Notes Cathy Mccoy M.D. - 02/27/2015 8:52 AM CDT [id number] CHIEF COMPLAINT/REASON FOR VISIT A 70-year-old male, here for diabetic check. He wants his feet checked and a form for diabetic shoesfilled out. I told him he needed to slate picker the form from the place he is going to get the shoes, that we do not have them here. He says when he wakes up his toes are very numb. His balance is not good. He has to be more careful climbing around things in his shop. He could not stand on one leg for 3 seconds. He now uses electric carts in [employer] because his hips ache. He walks for 5 minutes and the hips hurt. He did not bring a log of his blood sugars with him. PAST MEDICAL/SURGICAL HISTORY Acute myocardial infarction with cardiac arrest and an arterial stent. Coronary artery disease. Chronic pancreatitis. Diabetes. Gout. Hypertension. Hyperlipidemia. Infection with H. pylori. Skin cancer. Colonoscopy. Gastroscopy in 2012. Excision of calcaneal spur, 2006. FAMILY HISTORY Mother of a brain tumor. He has 3 brothers who have cataracts, 1 brother with heart disease, 3 brothers and a sister with diabetes, 1 sister with GERD, brother with glaucoma, brother with kidney stones, brother with pacemaker and brother with a stroke. He does come from a large family. SOCIAL HISTORY He never smoked. He drinks coffee daily. MEDICATIONS Albuterol CFC-free 2 puffs every 4 hours as needed. Allopurinol 100 mg twice a day. Creon 36,000 units 1 capsule 3 times a day before meals. EpiPen as needed. Fish oil 1000 mg 3 times a day. Fluticasone 2 sprays nasally daily, Gas-X 80 mg as needed. Gemfibrozil 600 mg 2 times a day. Humalog 75/25, 66 in the morning and 60 units in the evening. Indomethacin 25 mg 3 times a day as needed, pain. Kenalog in Orabase 0.1% mucous membrane paste 1 application 4 times a day as needed for tooth pain. Lidex 2 times a day as needed. Lisinopril 5 mg daily. Metformin 500 mg daily. Metoprolol 25 mg half tablet twice a day. Nitroglycerin as needed. Pepto-Bismol as needed. Phenylephrine 0.5% nasal spray as needed, allergies. Phenylephrine hydrochloride 10 mg tablet every 4 hours as needed, allergies. Saline mist as needed. ALLERGIES ADHESIVE BANDAGES. ASPIRIN. BEE STINGS. CLINDAMYCIN. LIPITOR. PENICILLIN. SYSTEMS REVIEW See HPI. Remainder negative. VITAL SIGNS Blood pressure 114/70, pulse 60, respirations 20, temp 36.5, weight 111 kg, height 194 cm. PHYSICAL EXAMINATION GENERAL: His gait seems normal to me. CHEST: Clear to auscultation bilaterally. CARDIOVASCULAR: Regular rate and rhythm. No murmur. EXTREMITIES: Right foot, 5th toe MTP has a lateral bunion that is painful. Left foot great toenail was black and he does not recall trauma that would have caused that. On the left foot, the toes are numb between the 1st and 2nd toe interspace. Right foot, he can feel some sensation in the toes. Pulsesare normal throughout. He does have a chronic lump on his left Achilles; the right also has one but it is much smaller. MUSCULOSKELETAL: Lumbar spine spinous and paraspinous are tender. His left sciatic notch is positivefor pain. His hips have full range of motion, but the outside left hip is tender over the trochanteric bursa. It is also tender with hip internal and external rotation, but he declines x-rays at this time. IMPRESSION/REPORT/PLAN 1. Diabetes. 2. Imbalance. 3. Foot pain, bilateral. He is going to bring us a sheet for special shoes, and I will fill that out with the information we have from his foot exam. Check a hemoglobin A1c, lipid, AST, and refer to Physical Therapy for his balance. ADMINISTRATIVE BILLING Total time spent was 25 minutes, with 20 minutes in counseling and coordination of care. Cathy Mccoy M.D./pos Electronically Signed By: CATHY MCCOY MD On: 04/17/2015 03:07 PM Source: [facility] [id number] Document Id: [id number] documented in this encounter Nursing Notes Cathy Mccoy M.D. - 02/27/2015 10:19 AM CDT Diabetes Intake Diabetes Intake Entered On: 02/27/2015 10:21 CDT Performed On: 02/27/2015 10:19 CDT by CATHY MCCOY MD Diabetes Intake Foot Exam Grid Left foot exam Right foot exam Dorsalis Pedis Pulse : Normal Normal Post Tibial Pulse : Normal Normal Capillary Refill : Less than 3 seconds Less than 3 seconds 10 gm Monofilament Sensation Check : Intact Absent Comments : decreased sense,lump achilles 5th toe bunion, painful, CATHY MCCOY MD - 02/27/2015 10:19 CDT CATHY MCCOY MD - 02/27/2015 10:19 CDT Source: [facility] POWERCHART Document Id: [id number] CDT!15 documented in this encounter Miscellaneous Notes Miscellaneous - Leonidas, Isai L - 08/05/2015 10:31 AM CST [facility] - med refill Document Contains Addenda Addendum by GINETTE LOUIE LPN on 05 August 2015 13:29:46 ACCOUNTING SUPERVISOR Pt called, L/M message about the the Humalog being sent to the pharmacy. Addendum by TERRA VYAS RN on 05 August 2015 10:46:07 ACCOUNTING SUPERVISOR From: TERRA VYAS RN (SAGE Wise Nurse) To: GINETTE LOUIE LPN; Sent: 08/05/2015 10:46:07 ACCOUNTING SUPERVISOR Subject: FW: [facility] - med refill can you let him know taht this was sent:) From: ISAI GARCIA To: SAGE Wise Nurse; Sent: 08/05/2015 10:31:38 ACCOUNTING SUPERVISOR Subject: [facility] - med refill If you need a prescription refill please call your pharmacy. Please allow 3 business days for processing. Call Center Template: ?? May we leave a message for you on this phone? ?? What can I help you with today? ?? If Medication Refill: o What is the medication? Javi- Ave would like a phone call when this has been sent in o What pharmacy do you use? [facility] o Have you contacted your pharmacy regarding this request? I will send this information to the appropriate staff member who will look into your concern. Someone will call you back within 4 business hours.. Thank you for calling [facility]. Source: [facility] POWERCHART Document Id: [id number] Electronically signed by Gricelda, [facility] Marshmallow Machine Operator [id number] at 02/06/2017 10:06 AM CDT Miscellaneous - Samira Stock RKamilaN. - 04/08/2015 3:32 PM CDT ABIs with rest and stress order Document Contains Addenda Addendum by CATHY MCCOY MD on 08 April 2015 16:51:13 CDT From: CATHY MCCOY MD To: SAMIRA STOCK RN; Sent: 04/08/2015 16:51:13 CDT Subject: RE: ABIs with rest and stress order ordered for monday as we are not in tomorrow From: SAMIRA STOCK RN To: CATHY MCCOY MD; Sent: 04/08/2015 15:32:05 CDT Subject: ABIs with rest and stress order You recently ordered rest and stress ABIs for this patient. The patient called the radiology department in [place] to schedule the test. He was informed that this test needs to go through cardiology for approval. The schedulers relayed this message to the stress lab. I found the order in the computer. For cardiology approval the patient will need a recent ( less than 6 week old ) hemoglobin, potassium and ECG. If you could order these test and get them scheduled, we will watch for the result and ifnormal have our schedulers call the patient to schedule his test. If you have any questions, please call stress lab [place] ext [phone]. Thank you. Source: [facility] POWERCHART Document Id: [id number] Electronically signed by Conversion, [facility] Marshmallow Machine Operator [id number] at 02/06/2017 10:06 AM CDT Miscellaneous - Cathy Mccoy M.D. - 02/27/2015 2:36 PM CDT Normal Results Letter [address] [id number] [facility] [id number] Dear A[facility], I am pleased to report that your results from the following diagnostic test(s) are normal. Please follow up with us as we discussed during your visit or sooner if you have any concerns. If you have questions or concerns, please do not hesitate to call our office. 3 month test for glucose is somewhat improved and cholesterol is great except hdl is low. Everything is low though. Result Name Current Result Previous Result Normal Range AST (U/L) 47 02/27/2015 8 - 48 Cholesterol (mg/dL) 120 02/27/2015 127 06/30/2014 - <=199 Trig (mg/dL) 122 02/27/2015 120 06/30/2014 - <=149 HDL (mg/dL) (L) 21 02/27/2015 (L) 23 06/30/2014 >=40 - LDL Calculated (mg/dL) 75 02/27/2015 80 06/30/2014 - <=129 Hgb A1c (% A1C) (H) 7.1 02/27/2015 (H) 7.3 06/30/2014 - <=5.6 Sincerely, CATHY MCCOY [address] [place] [id number] Electronic Signature Electronically Signed By: CATHY MCCOY MD On: 27 February 2015 This document has images extracted. Source: [facility] POWERCHART Document Id: [id number] Electronically signed by Conversion, [facility] Marshmallow Machine Operator [id number] at 02/06/2017 10:06 AM CDT Miscellaneous - Cathy Mccoy M.D. - 02/27/2015 10:38 AM CDT [facility] [address] [place] [id number] Visit Information Name: SANDY CHANCEBRANT BARKER [facility] Number: [id number] Current Date: 02/27/2015 10:38:18 Physicians Attending Provider: CATHY MCCOY MD Primary [...] 1 cecile, Topical, two times a day fluticasone nasal (fluticasone nasal 0.05 mg/inh spray) 2 Charlotte(s), Nasal, once a day PLEASE USE YOU WERE SHOWN IN THE OFFICE SO TO AVOID THE MIDDLE SEPTUM gemfibrozil (gemfibrozil 600 mg oral tablet) 1 Tablet(s), Oral, two times a day indomethacin (indomethacin 25 mg oral capsule) 1 cap, Oral, three times a day as needed for Pain Take with food insulin lispro protamine-insulin lispro (Humalog Mix 75/25 subcutaneous suspension) See [id number] am and 68 pm Dose increase This is a CHANGE lisinopril (lisinopril 5 [...] (Creon 36,000 units oral delayed release capsule) 1 cap, Oral, three times a day phenylephrine (phenylephrine hydrochloride 10 mg oral tablet) 1 Tablet(s), Oral, every 4 hours as needed for allergies phenylephrine nasal (phenylephrine 0.5% nasal spray) as needed for allergies simethicone (Gas-X) 80 mg, , as needed sodium chloride nasal (Saline Nasal Mist nasal spray) 2 Charlotte(s), Nostrils(Both), four times a day as needed for Dry nasal passages triamcinolone topical (Kenalog in Orabase 0.1% mucous membrane paste) 1 cecile, Topical, four times a day as needed for tooth pain Stop Taking the Following Medications: Medication list as of 02-27-15 10:38 Attention: If you have any medications at [...] Electronically Signed By: CATHY MCCOY MD Signed On:27-FEB-2015 10:38:12 Your Allergies & Intolerances Substance Reaction Symptoms [...] Classified Elsewhere and of Unspecified SiteActive 07/24/2013 Your Upcoming Appointments Date Time Location Provider 08/05/2015 12:45 [facility] Efrain Ellison MD Attention: Contact your local Clinic if further appointment detail needed. Your Goals/Additional instructions: Source: [facility] POWERCHART Document Id: [id number] Miscellaneous - Cathy Mccoy M.D. - 02/27/2015 10:38 AM CDT Ambulatory Discharge Medication List [facility] [address] [place] [id number] Visit Information Name: A[facility] Number: [id number] Visit Date: 02/27/2015 10:38:16 Attending Provider: CATHY MCCOY MD Primary Care [...] 1 cecile, Topical, two times a day fluticasone nasal (fluticasone nasal 0.05 mg/inh spray) 2 Charlotte(s), Nasal, once a day PLEASE USE YOU WERE SHOWN IN THE OFFICE SO TO AVOID THE MIDDLE SEPTUM gemfibrozil (gemfibrozil 600 mg oral tablet) 1 Tablet(s), Oral, two times a day indomethacin (indomethacin 25 mg oral capsule) 1 cap, Oral, three times a day as needed for Pain Take with food insulin lispro protamine-insulin lispro (Humalog Mix 75/25 subcutaneous suspension) See [id number] am and 68 pm Dose increase This is a CHANGE lisinopril (lisinopril 5 [...] (Creon 36,000 units oral delayed release capsule) 1 cap, Oral, three times a day phenylephrine (phenylephrine hydrochloride 10 mg oral tablet) 1 Tablet(s), Oral, every 4 hours as needed for allergies phenylephrine nasal (phenylephrine 0.5% nasal spray) as needed for allergies simethicone (Gas-X) 80 mg, , as needed sodium chloride nasal (Saline Nasal Mist nasal spray) 2 Charlotte(s), Nostrils(Both), four times a day as needed for Dry nasal passages triamcinolone topical (Kenalog in Orabase 0.1% mucous membrane paste) 1 cecile, Topical, four times a day as needed for tooth pain Stop Taking the Following Medications: Medication list as of 02-27-15 10:38 Attention: If you have any medications at [...] Electronically Signed By: CATHY MCCOY MD Signed On:27-FEB-2015 10:38:12 Additional Information: Yes - . Source: [facility] POWERCHART Document Id: [id number] Miscellaneous - Shirin Weeks L.P.N. - 02/27/2015 9:41 AM CDT Health Assessment Health Assessment Entered On: 02/27/2015 9:42 CDT Performed On: 02/27/2015 9:41 CDT by SHIRIN WEEKS LPN Health Assessment Complete Health Assessment Complete or Modified : Annual Health Assessment Annual Health Assessment Completed : Yes SHIRIN WEEKS LPN - 02/27/2015 9:41 CDT Nutrition Nutrition Risk Factors by History Adult : None Home Diet : Diabetic SHIRIN WEEKS LPN - 02/27/2015 9:41 CDT Functional Living Situation : Home independently Current Daily Living Assistance : None SHIRIN WEEKS MYNOR HARRIS - 02/27/2015 9:41 CDT Dependent Habits Tobacco Use/Currently Using : No Exposure to Tobacco Smoke : Other: non smoker Smoking Status : Never smoker SHIRIN WEEKS KIMBERLY - 02/27/2015 9:41 CDT Caffeine Use Grid Caffeine Use : Current Type : Coffee Frequency : Daily SHIRIN WEEKS MY[facility]ARRIS - 02/27/2015 9:41 CDT Psychosocial Domestic Abuse Concerns : None Behavioral Health Screen/Safety Assmt : No Mormon Preference : Unknown SHIRIN WEEKS MYNOR HARRIS - 02/27/2015 9:41 CDT Advance Directive Advanced Directives : No Advance Directive Additional Information : No SHIRIN WEEKS MYNOR HARRIS - 02/27/2015 9:41 CDT Educ Needs Learning Style Preference Adult Grid Patient : None Family : None SHIRIN WEEKS MYNOR HARRIS - 02/27/2015 9:41 CDT Source: [employer] Document Id: [id number] CDT!30 Miscellaneous - Shirin Weeks L.P.NKamila - 02/27/2015 9:34 AM CDT 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 Intake/History 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 Intake/History Entered On: 02/27/2015 9:37 CDT Performed On: 02/27/2015 9:34 CDT by SHIRIN WEEKS LPN Intake Chief Complaint : diabetic check, foot check, form for diabetic shoes Temperature Core : 36.5 DegC(Converted to: 97.7 DegF) Peripheral Pulse Rate : 60 /min Respiratory Rate : 20 /min Heart Rhythm : Regular Systolic Blood Pressure : 114 mmHg Diastolic Blood Pressure : 70 mmHg NIBP Mean : 85 mmHg BP Location : Left upper extremity Blood Pressure Cuff Size : Large Height : 194 cm(Converted to: 6 ft 4 inch(es), 76 inch(es)) Actual Weight : 111 kg(Converted to: 244 lb 11 oz) Dosing Weight Clinic : 111 kg Clinic BSA : 2.45 Body Mass Index : 29.49 kg/m2 WEEKS, SHIRIN LOWE LPN - 02/27/2015 9:34 CDT General Info Information Given By : Patient Preferred Communication Mode : Verbal Languages : Khmer Is Patient Female and 13-50 no hysterectomy : No SHIRIN WEEKS [facility] - 02/27/2015 9:34 CDT Subjective Pain Symptoms : No SHIRIN WEEKS [facility] - 02/27/2015 9:34 CDT Dependent Habits Tobacco Use/Currently Using : No Exposure to Tobacco Smoke : Other: non smoker Smoking Status : Never smoker SHIRIN WEEKS [facility] - 02/27/2015 9:34 CDT Caffeine Use Grid Caffeine Use : Current Type : Coffee Frequency : Daily SHIRIN WEEKS [facility] - 02/27/2015 9:34 CDT Source: [facility] POWERCHART Document Id: [id number] CDT!33 documented in this encounter Plan of Treatment Not on filedocumented as of this encounter Procedures Procedure Name Priority Date/Time Associated Comments Diagnosis LIPID PANEL, S Routine 02/27/2015 10:46 Results f or this AM CDT procedure are i n the results section. ASPARTATE Routine 02/27/2015 10:46 Results for this AMINOTRANSFERASE (AST), AM CDT proc edure are in S/P the results section. HEMOGLOBIN A1C, B Routine 02/27/2015 10:46 Result s for this AM CDT procedure are i n the results section. documented in this encounter Results AST (Aspartate Aminotransferase) (02/27/2015 10:46 AM CDT) Patholo gist Method Time Signature Aspartate 47 8 - 48 UL POWERCHART Aminotransferase (AST), S Specimen (Source) Anatomical Collection Method Collection Time Re ceived Time Location / / Volume Laterality Blood 02/27/2015 10:46 AM CDT Cathy Mccoy M.D. LAB BLOOD ADD-ON Performing Organization Address City/State/ZIP Code Phon e Number POWERCHART (ABNORMAL) Lipid Panel (02/27/2015 10:46 AM CDT) P athologist Signature Cholesterol, 120 <=199 MGDL POWERCHART Total Comment: 2014 National Lipid Association recommen dations for Total Cholesterol in adults ages 18 and up: Desirable <200 mg/dL Borderline high 200-239 mg/dL High 240 mg/dL 2014 National Lipid Association recommen dations for Total Cholesterol in children ages 2 to 17. Acceptable <170 mg/dL Borderline High 170-199 mg/dL High 200 mg/dL HX HDL 21 (L) >=40 MGDL POWERCHART Comment: 2013 National Lipid Association recommen dations for HDL-C in adults ages 18 and up: Low <40 mg/dL (Men) Low <50 mg/dL (Women) 2014 National Lipid Association recommen dations for HDL-C in children ages 2 to 17. Low <40 mg/dL Borderline Low 40-45 mg/dL Acceptable >45 mg/dL Triglycerides 122 <=149 MGDL POWERCHART Comment: 2014 National Lipid Association [...] assessment when triglycerides are >400mg/dL. Calculated LDL 75 <=129 MGDL POWERCHART Comment: 2013 National Lipid [...] [facility]: FH/ADH Genetic Reflex [place] el (test ADHP). Acquired (non-genetic) causes of markedly increased LDL cholesterol include cholestatic liver disease due to the presence of LpX. If a genetic form of hypercholesterolemia is suspected, family studies including biochemical testing fo r lipids (total cholesterol,triglycerides, LDL cholesterol and HDL cholesterol) are recommended. ??Please contact the laboratory at or the on-line test catalog at [employer] for information about how to order these scottie ts or to speak with a genetic counselor. Further interpretation would require clinical information. Specimen (Source) Anatomical Collection Method Collection Time Re ceived Time Location / / Volume Laterality Blood 02/27/2015 10:46 AM CDT Cathy Mccoy M.D. LAB BLOOD ADD-ON Performing Organization Address City/State/ZIP Code Phon e Number POWERCHART (ABNORMAL) Hemoglobin A1c (02/27/2015 10:46 AM CDT) P athologist Signature Hemoglobin A1c, 7.1 (H) <=5.6 A1C POWERCHART B Specimen (Source) Anatomical Collection Method Collection Time Re ceived Time Location / / Volume Laterality Blood 02/27/2015 10:46 AM CDT Cathy Mccoy M.D. LAB BLOOD ADD-ON Performing Organization Address City/State/ZIP Code Phon e Number POWERCHART documented in this encounter Visit Diagnoses Not on filedocumented in this encounter
--- OUTSIDE RECORDS SUMMARY | 2022-05-24 18:28 | XMS_ITS | Encounter Summary ---
:1945 Author Organization [facility] Address [address] [place] [address] Care Team Providers Name Role Phone Unavailable Primary Care Provider Unavailable Encounter Details Date Type Department Care Team Description 08/19/2014 Hospital Encounter HX [facility] Kedar Cevallos M.D. Social History Tobacco Use Types Packs/Day [...] ORAL needed. documented as of this encounter Procedure Notes Scout Melo R.T.(R)(CT), Cady(R), HeenaTKamila(R)(MR) - 08/19/2014 8:50 AM PLANT CYTOLOGIST Peripheral IV Peripheral IV Entered On: 08/19/2014 9:35 PLANT CYTOLOGIST Performed On: 08/19/2014 8:50 PLANT CYTOLOGIST by SCOUT MELO Peripheral IV Peripheral IV Assess/Intervention Grid Peripheral IV #1 IV Activity : Discontinue Number of Attempts : 1 Date of Insertion : 08/19/2014 PLANT CYTOLOGIST IV Site : Antecubital Laterality : Right Catheter Size : 20 Catheter Type : Over the needle Site Condition : No complications SCOUT MELO - 08/19/2014 9:35 PLANT CYTOLOGIST Source: [place] Document Id: [id number] PLANT CYTOLOGIST!12 T CYTOLOGIST Scout Melo R.T.(R)(CT), Cady(R), R.T.(R)() - 08/19/2014 7:20 AM PLANT CYTOLOGIST Peripheral IV Peripheral IV Entered On: 08/19/2014 9:35 PLANT CYTOLOGIST Performed On: 08/19/2014 7:20 PLANT CYTOLOGIST by SCOUT MELO Peripheral IV Peripheral IV Assess/Intervention Grid Peripheral IV #1 IV Activity : Start Number of Attempts : 1 Date of Insertion : 08/19/2014 PLANT CYTOLOGIST IV Site : Antecubital Laterality : Right Catheter Size : 20 Catheter Type : Over the needle SCOUT MELO - 08/19/2014 9:34 PLANT CYTOLOGIST Source: [facility] POWERCHART Document Id: [id number] PLANT CYTOLOGIST!11 T CYTOLOGIST documented in this encounter Plan of Treatment Not on filedocumented as of this encounter Procedures Procedure Name Priority Date/Time Associated Diagnosis Comme nts MR ABDOMEN MRCP Routine 08/19/2014 7:30 AM Result s for this WITHOUT AND WITH IV PLANT CYTOLOGIST procedur e are in CONTRAST the results section. documented in this encounter Results MR Abdomen MRCP without and with IV Contrast (08/19/2014 7:30 AM PLANT CYTOLOGIST) Anatomical Region Laterality Modality Abdomen N/A Magnetic Resonance Specimen (Source) Anatomical Collection Method Collection Time Re ceived Time Location / / Volume Laterality 08/19/2014 7:30 AM PLANT CYTOLOGIST Addenda Addendum by Provider, Junior Worthington o n 08/19/2014 7:30 AM PLANT CYTOLOGIST RAD^^^MA MR CHOLANGIOGRAM AND ABDOMEN W AND WO CO NT 08/19/2014 07:30:00 Addendum by Provider, Junior Worthington o n 08/19/2014 7:26 AM PLANT CYTOLOGIST RAD^^^MA MR CHOLANGIOGRAM AND ABDOMEN W AND WO CO NT 08/19/2014 07:26:12 Impressions 08/19/2014 10:35 AM PLANT CYTOLOGIST 1. Findings compatible with sequela of c hronic pancreatitis with obstructing intraductal calcification me asuring 8mm. No discrete pancreatic mass identified. Progressive pancreatic atrophy favored related to chronic ductal obstruction. 2. Diffuse hepatic steatosis. Narrative 08/19/2014 10:35 AM PLANT CYTOLOGIST Comparison: CT 03/08/2010, 06/20/2013. No comparison MRI. TECHNIQUE: Axial and coronal long TR, ax ial and coronal T1 FSPGR, axial and coronal 2-D fiesta, axial dual echo, axial diffusion-weighted imaging, source and m aximum intensity projection radial MRCP images, axial pre-and dynami c postcontrast, axial and coronal delayed postcontrast images of t he abdomen obtained. Patient received a total of 20 cc Omniscan intra venously. FINDINGS: Diffuse hepatic steatosis evidenced by s ignal dropout on out of phase images. No evidence of focal hepatic les ion. No intrahepatic ductal dilatation. No calculi identified within the gallbla dder. Gallbladder wall thickness normal. The common duct is nor mal diameter. Intraductal filling defect within the pa ncreatic duct at the level of the pancreatic head measuring approximat tyree 8 mm best demonstrated on source image 38 series 17, also demonstr ated on coronal image 11 series 14. Pancreatic ductal dilatation measuring up to 8 mm. Multiple dilated side branches noted. CT 06/20/2013 demonstrating multiple intrapancreatic calcifications predominantly within the pancreatic head and proximal body most c ompatible with chronic pancreatitis. Progressive atrophy of the tail of the pancreas but remnant parenchyma of the distal body an d tail of the pancreas remains and no discrete pancreatic lesio n identified to indicate malignancy. Spleen, adrenal glands within normal cortes its. Multiple small cysts involving both kidneys. Abdominal aorta nonaneurysmal. No ascites. No pleural effusion. No suspicious marrow signal abnormality. Multilevel degenerative changes of the spine. Procedure Note Price Bradford M.D. / Provider, His laila M.D. - 01/21/2017 Comparison: CT 03/08/2010, 06/20/2013. No comparison MRI. TECHNIQUE: Axial and coronal long TR, ax ial and coronal T1 FSPGR, axial and coronal 2-D fiesta, axial dual echo, axial diffusion-weighted imaging, source and m aximum intensity projection radial MRCP images, axial pre-and dynami c postcontrast, axial and coronal delayed postcontrast images of t he abdomen obtained. Patient received a total of 20 cc Omniscan intra venously. FINDINGS: Diffuse hepatic steatosis evidenced by s ignal dropout on out of phase images. No evidence of focal hepatic les ion. No intrahepatic ductal dilatation. No calculi identified within the gallbla dder. Gallbladder wall thickness normal. The common duct is nor mal diameter. Intraductal filling defect within the pa ncreatic duct at the level of the pancreatic head measuring approximat tyree 8 mm best demonstrated on source image 38 series 17, also demonstr ated on coronal image 11 series 14. Pancreatic ductal dilatation measuring up to 8 mm. Multiple dilated side branches noted. CT 06/20/2013 demonstrating multiple intrapancreatic calcifications predominantly within the pancreatic head and proximal body most c ompatible with chronic pancreatitis. Progressive atrophy of the tail of the pancreas but remnant parenchyma of the distal body an d tail of the pancreas remains and no discrete pancreatic lesio n identified to indicate malignancy. Spleen, adrenal glands within normal cortes its. Multiple small cysts involving both kidneys. Abdominal aorta nonaneurysmal. No ascites. No pleural effusion. No suspicious marrow signal abnormality. Multilevel degenerative changes of the spine. IMPRESSION: 1. Findings compatible with sequela of c hronic pancreatitis with obstructing intraductal calcification me asuring 8mm. No discrete pancreatic mass identified. Progressive pancreatic atrophy favored related to chronic ductal obstruction. 2. Diffuse hepatic steatosis. Shirin Lazar(R), R.TKamila(R)(MR) IMG MRI PROCEDURE S documented in this encounter Visit Diagnoses Not on filedocumented in this encounter
--- OUTSIDE RECORDS SUMMARY | 2022-05-24 18:28 | XMS_ITS | Encounter Summary ---
:1945 Author Organization [facility] Address [address] [place] [address] Care Team Providers Name Role Phone Unavailable Primary Care Provider Unavailable Encounter Details Date Type Department Care Team Description 11/11/2013 [facility] Nikia Rosenthal M.D. Social History Tobacco Use Types [...] Sign Reading Time Taken Comments Blood Pressure 108/70 11/11/2013 1:24 PM [employer] Pulse 60 11/11/2013 1:24 PM [employer] Temperature - - Respiratory Rate 20 11/11/2013 1:24 PM [employer] Oxygen Saturation - - Inhaled Oxygen Concentration - - Weight 110 kg (241 lb 10 oz) 11/11/2013 1:24 PM [employer] Height 194 cm (6' 4.38) 11/11/2013 1:24 PM [employer] Body Mass Index 29.12 11/11/2013 1:24 PM [employer] documented in this encounter Medications at Time of Discharge Medication Sig Dispensed Refills Start Date End Date DOCOSAHEXANOIC ACID/EPA Take 1 capsule by 0 06/13 (FISH OIL ORAL) mouth 3 (three) times a day. When remembers phenylephrine phenylephrine 0.5% 0 08/23/2013 (for_NEO-SYNEPHRINE) nasal spray as needed 0.5 % nasal spray for allergies SIMETHICONE ORAL 80 mg as needed. 0 11/11/2013 sodium chloride 3 % Administer 2 sprays 0 013 mist into each nostril 4 (four) times a day as needed. BISMUTH SUBSALICYLATE Take by mouth as 0 03/13/20 09 04/01/2019 ORAL needed. documented as of this encounter Progress Notes Nikia Mccoy M.D. - 11/11/2013 1:13 PM CST [id number] CHIEF COMPLAINT/REASON FOR VISIT He is having pain in his right upper arm pain. He slipped on ice when he was snowblowing on 11/08/2013. Grabbed the handles of the snowblower and as he went down he felt a rip in the upper biceps area.At first he noted a large knot on the lower part of the biceps but he kind of rubbed it and that smoothed out. He also wants to check a lesion on his back. He really is not having much pain. He can move his arm just fine and he does not have pain. He does not have shoulder pain. PAST MEDICAL/SURGICAL HISTORY MEDICAL: Acute myocardial infarction. Arterial stent. Cardiac arrest, out of hospital. Chronic pancreatitis. Coronary artery disease. Diabetes. Gout. History of H. pylori. Hypertension. Hyperlipidemia. Skin cancer. Colonoscopy. Gastroscopy in 2012. Excision of calcaneal spur in 2006. FAMILY HISTORY Cataract, cancer, coronary artery disease, diabetes, glaucoma, renal stone, and sleep apnea. SOCIAL HISTORY He is not a smoker. He drinks coffee daily. MEDICATIONS Reviewed and reconciled on his EMR. ALLERGIES ADHESIVE BANDAGE. ASPIRIN. BEEN STINGS. CLINDAMYCIN. LIPITOR. PENICILLIN. SYSTEMS REVIEW See HPI, remainder negative. VITAL SIGNS Blood pressure 108/70, pulse 60, respirations 20, temp 36.3 weight 109.6 kg, height 194 cm. PHYSICAL EXAMINATION Right elbow flexion with good strength. It is more the right biceps is a little bit more mounded than the left. No bruising no bruising noted. He has pain just distal to the shoulder on the anterior side of the arm. There is a skin-colored mole just above the left gluteal cleft that has good edge. Color is skin colored. IMPRESSION/REPORT/PLAN 1. Arm pain. 2. Skin lesion. The mole was kind of over often on his underwear that is why he called my attention to it. He may come back and get that removed at some time. As far as the arm is concerned we discussed getting an MRIand physical therapy consult and he agreed with those. We are setting up for an MRI of the humerus, the proximal humerus, the area of concern on the right arm. Also have physical therapy consult as I am sure they would like to know any extent of damage to the biceps. ADMINISTRATIVE BILLING Total time spent was 15 minutes, with 10 minutes in counseling and coordination of care. Nikia Mccoy M.D./pos Electronically Signed By: NIKIA MCCOY MD On: 11/15/2013 03:40 PM Source: [facility] [id number] Document Id: [id number] [employer] documented in this encounter Miscellaneous Notes Miscellaneous - Nikia Mccoy M.D. - 11/11/2013 1:53 PM CST Ambulatory Patient Summary [facility] [address] [place] [address] [id number] Visit Information Name: JORGE CHANCE [facility] Number: [id number] Current Date: 11/11/2013 13:53:07 Physicians Attending Provider: NIKIA MCCOY MD Primary Care Provider: NIKIA MCCOY MD JORGE CHANCE MJ has been given the following [...] 1 cecile, Topical, two times a day epinephrine (EpiPen 2-Yves 0.3 mg injectable kit) 0.3 mg, Intramuscular, once fluocinonide topical (Lidex 0.05% topical solution) 1 cecile, Topical, two times a day fluticasone nasal (fluticasone nasal 0.05 mg/inh spray) 2 Entiat(s), Nasal, once a day PLEASE USE YOU WERE SHOWN IN THE OFFICE SO TO AVOID THE MIDDLE SEPTUM gemfibrozil (gemfibrozil 600 mg oral tablet) 1 Tablet(s), Oral, two times a day indomethacin (indomethacin 25 mg oral capsule) 1 cap, Oral, three times a day as needed for Pain Take with food insulin lispro protamine-insulin lispro (Humalog Mix 75/25 subcutaneous suspension) See [id number] units bid lisinopril (lisinopril 5 mg oral tablet) 1 [...] 1 cap, Oral, three times a day with meals phenylephrine (phenylephrine hydrochloride 10 mg oral tablet) 1 Tablet(s), Oral, every 4 hours as needed for allergies phenylephrine nasal (phenylephrine 0.5% nasal spray) as needed for allergies simethicone (Gas-X) 80 mg, , two times a day sodium chloride nasal (Saline Nasal Mist nasal spray) 2 Entiat(s), Nostrils(Both), four times a day as needed for Dry nasal passages triamcinolone topical (Kenalog in Orabase 0.1% mucous membrane paste) 1 cecile, Topical, four times a day as needed for tooth pain Stop Taking the Following Medications: Medication list as of 11-11-13 13:53 Attention: If you have any medications at home that are not on this list, DO NOT take them until youcontact your provider for clarification. Give a copy of your medication list to your primary care provider. Update your medication list any time medications or doses are changed and carry your medication list at all times in case of emergency. Your Allergies & Intolerances Substance Reaction Symptoms [...] 07/24/2013 Your Upcoming Appointments Date Time Location Reason Provider 01/22/2014 11:30 [facility] GI/Hep Chronic pancreatitis Efrain Ellison MD Attention: Contact your local Clinic if further appointment detail needed. Your Goals/Additional instructions: Source: [facility] POWERCHART Document Id: [id number] [employer] Miscellaneous - Nikia Mccoy M.D. - 11/11/2013 1:53 PM CST Ambulatory Discharge Medication List [facility] - [address] [id number] Visit Information Name: JORGE CHANCE [facility] Number: [id number] Visit Date: 11/11/2013 13:52:59 Attending Provider: NIKIA MCCOY MD Primary Care Provider: NIKIA MCCOY MD [...] 1 cecile, Topical, two times a day epinephrine (EpiPen 2-Yves 0.3 mg injectable kit) 0.3 mg, Intramuscular, once fluocinonide topical (Lidex 0.05% topical solution) 1 cecile, Topical, two times a day fluticasone nasal (fluticasone nasal 0.05 mg/inh spray) 2 Entiat(s), Nasal, once a day PLEASE USE YOU WERE SHOWN IN THE OFFICE SO TO AVOID THE MIDDLE SEPTUM gemfibrozil (gemfibrozil 600 mg oral tablet) 1 Tablet(s), Oral, two times a day indomethacin (indomethacin 25 mg oral capsule) 1 cap, Oral, three times a day as needed for Pain Take with food insulin lispro protamine-insulin lispro (Humalog Mix 75/25 subcutaneous suspension) See [id number] units bid lisinopril (lisinopril 5 mg oral tablet) 1 [...] 1 cap, Oral, three times a day with meals phenylephrine (phenylephrine hydrochloride 10 mg oral tablet) 1 Tablet(s), Oral, every 4 hours as needed for allergies phenylephrine nasal (phenylephrine 0.5% nasal spray) as needed for allergies simethicone (Gas-X) 80 mg, , two times a day sodium chloride nasal (Saline Nasal Mist nasal spray) 2 Entiat(s), Nostrils(Both), four times a day as needed for Dry nasal passages triamcinolone topical (Kenalog in Orabase 0.1% mucous membrane paste) 1 cecile, Topical, four times a day as needed for tooth pain Stop Taking the Following Medications: Medication list as of 11-11-13 13:53 Attention: If you have any medications at home that are not on this list, DO NOT take them until youcontact your provider for clarification. Give a copy of your medication list to your primary care provider. Update your medication list any time medications or doses are changed and carry your medication list at all times in case of emergency. Additional Information: Yes - . Source: [facility] POWERCHART Document Id: [id number] [employer] Miscellaneous - Mckenna Kelly L.P.NKamila - 11/11/2013 1:24 PM CST Adult Early Morning Babysitter Intake/History Adult Early Morning Babysitter Intake/History Entered On: 11/11/2013 13:27 [employer] Performed On: 11/11/2013 13:24 [employer] by MCKENNA KELLY LPN Intake Chief Complaint : Rt upper arm muscle pain. Between elbow and shoulder. Slipped on Ice 11/08/13 Temperature Core : 36.3 DegC(Converted to: 97.3 DegF) (LOW) Peripheral Pulse Rate : 60 /min Respiratory Rate : 20 /min Heart Rhythm : Regular Systolic Blood Pressure : 108 mmHg Diastolic Blood Pressure : 70 mmHg NIBP Mean : 83 mmHg BP Location : Left upper extremity Blood Pressure Cuff Size : Large Height : 194 cm(Converted to: 6 ft 4 inch(es), 76 inch(es)) Actual Weight : 109.6 kg(Converted to: 241 lb 10 oz) Weight Source : Standing scale Dosing Weight Clinic : 109.6 kg Clinic BSA : 2.43 Body Mass Index : 29.12 kg/m2 MCKENNA KELLY LPN - 11/11/2013 13:24 [employer] General Info Information Given By : Patient Preferred Communication Mode : Verbal Languages : [place] MCKENNA KELLY LPN - 11/11/2013 13:24 [employer] Subjective Pain Symptoms : Yes MCKENNA KELLY LPN - 11/11/2013 13:24 [employer] Pain Pain Assessment Grid Pain 1 Location : Upper arm Laterality : Right Intensity : 2 MCKENNA KELLY LPN - 11/11/2013 13:24 [employer] Dependent Habits Tobacco Use/Currently Using : No Exposure to Tobacco Smoke : Other: non smoker Smoking Status : Never smoker MCKENNA KELLY LPN - 11/11/2013 13:24 [employer] Tobacco Use Grid Last Use : Never MCKENNA KELLY LPN - 11/11/2013 13:24 [employer] Caffeine Use Grid Caffeine Use : Current Type : Coffee Frequency : Daily MCKENNA KELLY LPN - 11/11/2013 13:24 [employer] Source: [facility] POWERCHART Document Id: [id number] [employer]!42 [employer] Miscellaneous - Mckenna Kelly LKamilaP.NKamila - 11/11/2013 1:23 PM CST Health Assessment Health Assessment Entered On: 11/11/2013 13:24 [employer] Performed On: 11/11/2013 13:23 [employer] by MCKENNA KELLY LPN Health Assessment Complete Health Assessment Complete or Modified : Annual Health Assessment Annual Health Assessment Completed : Yes MCKENNA KELLY LPN - 11/11/2013 13:23 [employer] Nutrition Nutrition Risk Factors by History Adult : None Appetite : Excellent MCKENNA KELLY LPN - 11/11/2013 13:23 [employer] Functional Current Daily Living Assistance : None MCKENNA KELLY LPN - 11/11/2013 13:23 [employer] Dependent Habits Tobacco Use/Currently Using : No Exposure to Tobacco Smoke : Other: non smoker Smoking Status : Never smoker MCKENNA KELLY LPN - 11/11/2013 13:23 [employer] Tobacco Use Grid Last Use : Never MCKENNA KELLY LPN - 11/11/2013 13:23 [employer] Caffeine Use Grid Caffeine Use : Current Type : Coffee Frequency : Daily MCKENNA KELLY LPN - 11/11/2013 13:23 [employer] Psychosocial Domestic Abuse Concerns : None MCKENNA KELLY LPN - 11/11/2013 13:23 [employer] Advance Directive Advanced Directives : No Advance Directive Additional Information : No MCKENNA KELLY LPN - 11/11/2013 13:23 [employer] Educ Needs Learning Style Preference Adult Grid Patient : Verbal explanation, None, Demonstration Family : None MCKENNA KELLY LPN - 11/11/2013 13:23 [employer] Source: [facility] POWERCHART Document Id: [id number] [employer]!30 [employer] documented in this encounter Plan of Treatment Not on filedocumented as of this encounter Visit Diagnoses Not on filedocumented in this encounter
--- OUTSIDE RECORDS SUMMARY | 2022-05-24 18:28 | XMS_ITS | Encounter Summary ---
:1945 Author Organization [facility] Address [address] [place] [address] Care Team Providers Name Role Phone Unavailable Primary Care Provider Unavailable Encounter Details Date Type Department Care Team Description 01/22/2014 Hospital Encounter HX [facility] Jerica Freeman M. D. Social History Tobacco [...] Sign Reading Time Taken Comments Blood Pressure 120/66 01/22/2014 11:45 AM CDT Pulse 60 01/22/2014 11:45 AM CDT Temperature - - Respiratory Rate 16 01/22/2014 11:45 AM CDT Oxygen Saturation - - Inhaled Oxygen Concentration - - Weight 109 kg (240 lb 15.4 oz) 01/22/2014 11:45 AM CDT Height 194 cm (6' 4.38) 01/22/2014 11:45 AM CDT Body Mass Index 29.04 01/22/2014 11:45 AM CDT documented in this encounter Medications [...] encounter Progress Notes Jerica Ellison M.D. 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 PRIMARY PHYSICIAN: Cathy Mccoy M.D. HISTORY OF PRESENT ILLNESS Mr. Chance returns to clinic for followup. The patient was having diarrhea and gradual weight loss last year. Ultimately, patient was found to have chronic pancreatitis with pancreatic atrophy and calcification of the pancreas on CT scan. The patient responded well to Creon 36,000 units 1 tablet with each meal. His diarrhea has essentially resolved. The patient has some abdominal bloating symptoms. He has also slowly been gaining weight. He is now back to [address] scan from August of lastyear showed no obvious tumor. PHYSICAL EXAMINATION VITAL SIGNS: Temperature 36.4, pulse 60, respiratory 16, blood pressure 120/66, weight is 109.3 kg, body mass index 29. ABDOMEN: Round, soft, nontender. Bowel sounds present. Normoactive. No rebound. No guarding. Positive tympany all 4 quadrants. IMPRESSION/REPORT Pancreatic insufficiency secondary to chronic calcific pancreatitis with history of alcohol abuse, several decades ago. PLAN: Obtain CEA and CA-19-9. Repeat CT pancreas protocol later this year. Follow up in July 2014. Juliano Ellison M.D./pos cc: Cathy Mccoy M.D. 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 - 01/22/2014 12:09 PM CDT Ambulatory Patient Summary [address] [id number] Visit Information Name: [address] [facility] Number: [id number] Current Date: 01/22/2014 12:09:29 Physicians Attending Provider: JERICA ELLISON MD Primary Care Provider: CATHY MCCOY MD [...] nasal (fluticasone nasal 0.05 mg/inh spray) 2 Winburne(s), Nasal, once a day PLEASE USE YOU WERE SHOWN IN THE OFFICE SO TO AVOID THE MIDDLE SEPTUM gemfibrozil (gemfibrozil 600 mg oral tablet) 1 Tablet(s), Oral, two times a day indomethacin (indomethacin 25 mg oral capsule) 1 cap, Oral, three times a day as needed for Pain Take with food insulin lispro protamine-insulin lispro (Humalog Mix 75/25 subcutaneous suspension) See [id number] units bid lisinopril (lisinopril 5 mg oral [...] day This is a CHANGE [facility] [address] phenylephrine (phenylephrine hydrochloride 10 mg oral tablet) 1 Tablet(s), Oral, every 4 hours as needed for allergies phenylephrine nasal (phenylephrine 0.5% nasal spray) as needed for allergies simethicone (Gas-X) 80 mg, , two times a day sodium chloride nasal (Saline Nasal Mist nasal spray) 2 Winburne(s), Nostrils(Both), four times a day as needed for Dry nasal passages triamcinolone topical (Kenalog in Orabase 0.1% mucous membrane paste) 1 cecile, Topical, four times a day as needed for tooth pain Stop Taking the Following Medications: Medication list as of 01-22-14 12:09 Attention: If you have any medications at home that are not on this list, DO NOT take them until youcontact your provider for clarification. Give a copy of your medication list to your primary care provider. Update your medication list any time medications or doses are changed and carry your medication list at all times in case of emergency. Electronically Signed By: Signed On: Your Allergies & Intolerances Substance Reaction Symptoms [...] Upcoming Appointments Date Time Location Reason Provider No Appointments found Attention: Contact your local Clinic if further appointment detail needed. Your Goals/Additional instructions: Source: [facility] POWERCHART Document Id: [id number] Miscellaneous - Jerica Ellison M.D. - 01/22/2014 12:09 PM CDT Ambulatory Discharge Medication List [place] [id number] [facility] [address] [place], [place] [id number] Visit Information Name: SANDY CHANCERY MJ [facility] Number: [id number] Visit Date: 01/22/2014 12:09:27 Attending Provider: JERICA ELLISON MD Primary Care Provider: CATHY MCCOY MD [...] nasal (fluticasone nasal 0.05 mg/inh spray) 2 Winburne(s), Nasal, once a day PLEASE USE YOU WERE SHOWN IN THE OFFICE SO TO AVOID THE MIDDLE SEPTUM gemfibrozil (gemfibrozil 600 mg oral tablet) 1 Tablet(s), Oral, two times a day indomethacin (indomethacin 25 mg oral capsule) 1 cap, Oral, three times a day as needed for Pain Take with food insulin lispro protamine-insulin lispro (Humalog Mix 75/25 subcutaneous suspension) See [id number] units bid lisinopril (lisinopril 5 mg oral [...] day This is a CHANGE [facility] [address] [place] [address] phenylephrine (phenylephrine hydrochloride 10 mg oral tablet) 1 Tablet(s), Oral, every 4 hours as needed for allergies phenylephrine nasal (phenylephrine 0.5% nasal spray) as needed for allergies simethicone (Gas-X) 80 mg, , two times a day sodium chloride nasal (Saline Nasal Mist nasal spray) 2 Winburne(s), Nostrils(Both), four times a day as needed for Dry nasal passages triamcinolone topical (Kenalog in Orabase 0.1% mucous membrane paste) 1 cecile, Topical, four times a day as needed for tooth pain Stop Taking the Following Medications: Medication list as of 01-22-14 12:09 Attention: If you have any medications at home that are not on this list, DO NOT take them until youcontact your provider for clarification. Give a copy of your medication list to your primary care provider. Update your medication list any time medications or doses are changed and carry your medication list at all times in case of emergency. Electronically Signed By: Signed On: Additional Information: Source: [facility] POWERCHART Document Id: [id number] Miscellaneous - Polo Jean-Baptiste, L.P.N. 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 Maker Intake/History Entered On: 01/22/2014 11:48 CDT Performed On: 01/22/2014 11:45 CDT by POLO JEAN-BAPTISTE LPN Intake Chief Complaint : RV 6 months Chronic pancreatits Temperature Core : 36.4 DegC(Converted to: 97.5 DegF) (LOW) Peripheral Pulse Rate : 60 /min Respiratory Rate : 16 /min Heart Rhythm : Regular Systolic Blood Pressure : 120 mmHg Diastolic Blood Pressure : 66 mmHg NIBP Mean : 84 mmHg BP Location : Right upper extremity Blood Pressure Cuff Size : Large Height : 194 cm(Converted to: 6 ft 4 inch(es), 76 inch(es)) Actual Weight : 109.3 kg(Converted to: 240 lb 15 oz) Weight Source : Standing scale Dosing Weight Clinic : 109.3 kg Clinic BSA : 2.43 Body Mass Index : 29.04 kg/m2 POLO JEAN-BAPTISTE Blade [facility] 01/22/2014 11:45 CDT General Info Information Given By : Patient Preferred Communication Mode : Verbal Languages : Tajik POLO JEAN-BAPTISTE Blade [facility] 01/22/2014 11:45 CDT Subjective Pain Symptoms : No POLO JEAN-BAPTISTE Blade [facility] 01/22/2014 11:45 CDT Dependent Habits Tobacco Use/Currently Using : No Exposure to Tobacco Smoke : Other: non smoker Smoking Status : Never smoker POLO JEAN-BAPTISTE Blade [facility] 01/22/2014 11:45 CDT Tobacco Use Grid Last Use : Never CHARLY JEAN-BAPTISTECHINA Murguia [facility] 01/22/2014 11:45 CDT Alcohol Use : No CHARLY JEAN-BAPTISTECHINA Murguia [facility] 01/22/2014 11:45 CDT Caffeine Use Grid Caffeine Use : Current Type : Coffee Frequency : Daily CHARLY JEAN-BAPTISTECHINA Murguia [facility] 01/22/2014 11:45 CDT Source: [email or web address] Document Id: [id number] CDT!37 documented in this encounter Plan of Treatment Not on filedocumented as of this encounter Procedures Procedure Name Priority Date/Time Associated Comments Diagnosis CARBOHYDRATE AG 19-9 (CA Routine 01/22/2014 12:30 Results for this 19-9), S PM CDT procedure are i n the results section. URIC ACID, S/P Routine 01/22/2014 12:30 Results f or this PM CDT procedure are i n the results section. HEMOGLOBIN A1C, B Routine 01/22/2014 12:30 Result s for this PM CDT procedure are i n the results section. CARCINOEMBRYONIC AG Routine 01/22/2014 12:30 Resu lts for this (CEA), S PM CDT procedure are i n the results section. documented in this encounter Results Uric Acid (01/22/2014 12:30 PM CDT) athologist Signature Uric Acid, S 4.1 3.7 - 8.0 POWERCHART MGDL Specimen (Source) Anatomical Collection Method Collection Time Re ceived Time Location / / Volume Laterality Blood 01/22/2014 12:30 PM CDT Jerica Ellison M.D. LAB BLOOD ADD-ON Performing Organization Address City/State/ZIP Code Phon e Number POWERCHART (ABNORMAL) Hemoglobin A1c (01/22/2014 12:30 PM CDT) P athologist Signature Hemoglobin A1c, 7.3 (H) 4.5 - 6.0 POWERCHART B Specimen (Source) Anatomical Collection Method Collection Time Re ceived Time Location / / Volume Laterality Blood 01/22/2014 12:30 PM CDT Jerica Ellison M.D. LAB BLOOD ADD-ON Performing Organization Address City/[facility]/ZIP Code Phon e Number POWERCHART CA 19-9 (Carbohydrate Antigen 19-9) (01/22/2014 12:30 PM CDT) Analysis Performed At Patho logist Time Signature Carbohydrate Ag 13 <55 UNITML POWERCHART 19-9, S Comment: The testing method is an immunoenzymatic assay manufactured by [employer] and performed on the [employer] DxI 800. Values obtained with different assay met hods or kits may be different and cannot be used inte rchangeably. Test results cannot be interpreted as ab solute evidence for the presence or absence of malignant disease. Test Performed by: [place] [address] Care Navigator: Valentín walden III, M.D. Specimen (Source) Anatomical Collection Method Collection Time Re ceived Time Location / / Volume Laterality Blood 01/22/2014 12:30 PM CDT Jerica Ellison M.D. LAB BLOOD ADD-ON Performing Organization Address City/[facility]/ZIP Code Phon e Number POWERCHART CEA (Carcinoembryonic Antigen) (01/22/2014 12:30 PM CDT) Patholo gist Method Time Signature Carcinoembryonic Ag 2.3 <=3.8 POWERCHART (CEA), S NGML Comment: Some smokers may have elevated CEA, usua lly <5.0 ng/mL. Serum markers are not specific for malig miguel ángel, and values may vary by method. Specimen (Source) Anatomical Collection Method Collection Time Re ceived Time Location / / Volume Laterality Blood 01/22/2014 12:30 PM CDT Jerica Ellison M.D. LAB BLOOD ADD-ON Performing Organization Address City/State/ZIP Code Phon e Number POWERCHART documented in this encounter Visit Diagnoses Not on filedocumented in this encounter
--- OUTSIDE RECORDS SUMMARY | 2022-05-24 18:28 | XMS_ITS | Encounter Summary ---
:1945 Author Organization [facility] Address [address] [place] [address] Care Team Providers Name Role Phone Unavailable Primary Care Provider Unavailable Encounter Details Date Type Department Care Team Description 11/25/2013 - Hospital Encounter HX [facility] PT Nadine, 01/28/2014 Junior Morgan Social History Tobacco Use Types Packs/Day Years [...] as of this encounter Progress Notes Benja Brown P.T. - 01/28/2014 12:00 AM CDT [id number] REASON FOR VISIT: Patient was seen in physical therapy for 3 visits status post a partial long head biceps tear. He required cuing to complete his home exercise program initially, but did become independent with his program. He achieved short-term goal 1. He did not achieve the rest of his goals and discontinued physical therapy. GOAL STATUS: Unachieved due to lack of followup visits. We will discharge him at this time. Benja Brown P.T./pos Electronically Signed By: BENJA BROWN PT On: 05/05/2014 11:06 AM Source: [facility] MHSDOLBEYNONRADSYS Document Id: [id number] Conversion, Historical Provider Ser - 12/05/2013 12:00 AM CDT [id number] START OF CARE: November 25, 2013 TREATMENT DATE: December 05, 2013. Patient was seen for treatment of a partial bicipital tear and shoulder pain. OBJECTIVE: Treatment today consisted of therapeutic exercise x30 minutes. We reviewed his home exercise program today of Thera-Band resisted internal rotation, external rotation, extension, scapular retraction and seated row, as well as supraspinatus and infraspinatus strengthening with a 2-pound weight. He tolerated these well. He did need cuing with both the pictures and verbal to be able to perform these well. Today, we added supinated shoulder flexion with a straight arm to work the long head ofthe biceps. We asked him to be very gentle with this with the green Thera-Band. We also added prone YTLW for scapular stabilization, and shoulder strengthening. IMPRESSION: It has been beneficial to have his present for his treatment sessions to help with consistency and performance of his exercises correctly. PLAN: We will follow up with him in 1 week's time to add some gentle eccentric strengthening for hisbiceps. Samira Rodas P.T.A./pos Electronically Signed By: SAMIRA RODAS PTA On: 12/17/2013 12:38 PM Source: [facility] MHSDOLBEYNONRADSYS Document Id: [id number] Conversion, Historical Provider Ser - 12/02/2013 12:00 AM CDT [id number] REVISION HISTORY 12/18/2013 at 2:26 PM: Resent for signature / dw REASON FOR VISIT: Patient was seen for shoulder pain complaints and partial bicipital tear. OBJECTIVE: Treatment today consisted of therapeutic exercise x30 minutes. The patient states he has not been consistent with his home exercise program of Thera-Band resisted rotator cuff strengthening.He could not remember the exercises. Today we rotate him both written and pictured examples of the ex ercises. We went through them with him in detail. His also accompanied him for assistance. He was able to perform 1 set of 15 repetition of all exercises. At this point we skirted around the biceps. He is approximately 3 weeks post injury. At 6 weeks post injury we will start to add eccentric strengthening. IMPRESSION: The patient has difficulty with remembering his home exercise program, and is very hesitant to perform anything that he feels is increasing his pain. PLAN: Due to this we will follow up with him on a twice a week basis at least over the next week or so, until we are comfortable with his independence with his program. Samira Rodas P.T.A./dw Co-Signed By: SAMIRA RODAS PTA On: 12/19/2013 07:21 AM Source: [facility] MHSDOLBEYNONRADSYS Document Id: [id number] documented in this encounter Consult Notes Benja Brown P.T. - 11/25/2013 12:00 AM CDT [id number] Start of Care: 11/25/2013. Onset Date: 11/08/2013. Medicare Number: [id number]. Patient Type: Physical therapy. Provider Number: [id number] Referring Physician: Dr. Mccoy. Prior Hospitalization: None. Medical Diagnosis: Shoulder pain secondary to biceps strain. Treatment Diagnosis: Shoulder pain secondary to biceps strain. INITIAL ASSESSMENT History/Interview/Reason for referral/current complaint: The patient is a right- hand dominant 68-year-old male referred to physical therapy with complaint of right shoulder pain. Patient was snow blowing his driveway when it kicked back, and he felt a pull in his right shoulder. Denies any severe deformity or ecchymoses. The patient already has had an MRI taken showing a partial tear of the long headof the biceps with fibers still intact. He is referred now for physical therapy interventions. Pertinent medical and social history: Patient's past medical history is remarkable for chronic pancreatitis, diabetes, CAD, stent placements, [place], hyperlipidemia, hypertension, and cancer that is unspecified, but appears that it is skin cancer from questioning him. Functional status prior to treatment diagnosis: The patient was able to perform all ADLs overhead with his right shoulder without pain. EXAMINATION Observation: Patient is a well-appearing 68-year-old male in no acute distress. He does have a slight increase in bulk to the distal biceps on the right. PROM/AROM: Full and symmetric upper extremity motion bilaterally. MMT: 5/5 throughout upper extremities, except for shoulder flexion of palm up he is 4/5 secondary topain. Palpation: Nontender throughout upper extremities. Pain: The patient rates pain at worst is 3/10. Described as an achy sensation along the anterior aspect of the shoulder. At rest is 0/10. Special Tests/Functional Outcome Measures: The patient has negative drop arm. Negative external rotation lag sign. Negative Yancey Larry. Negative Neer. Negative AC compression. Positive speed's test for pain, mild weakness. Integumentary: Deferred. Neurologic Evaluation: 1+ reflexes at the biceps, triceps, and brachioradialis. Intact to light touch. Denies numbness or tingling. Gait/Balance: Normal. ASSESSMENT Current status of functional impairments/Problem list: The patient is currently limited with all overhead activities secondary to pain. He is able to perform all ADLs. Prognosis for improvements and indicators: Patient has an excellent prognosis as he has no sign of laura rotator cuff tear. Even with an injury to the biceps tendon, the patient is typically well equipped to manage this nonoperatively and not have any significant functional decline. Patient/Family goals: Patient would like to regain full use of the right upper extremity without pain. TREATMENT: (Eval, Therex 20 minutes. Total treatment 20 minutes). Patient was placed on the UBE for 5 minutes warmup. He performs Thera-Band extension, internal rotation, external rotation, horizontal abduction x25. He performs Thera-Band rolling x25. Instructed in 3pound scaption, flexion x25. We are not going to load the biceps at this time as it has only been 2 weeks. Our focus was to strengthen all the muscles around the area to help off-load that structure. We will focus on creating a dominant posterior shoulder. ASSESSMENT/REASONS FOR CONTINUING TREATMENT Patient has an acute strain to the long head of the biceps tendon. He will benefit from therapeutic exercises focused on protecting those structures while strengthening the areas around it. PLAN Therapeutic exercises. SHORT-TERM GOALS 1. The patient will be independent in a HEP in 2 weeks. 2. The patient will have 0/10 pain with washing his hair in 2 weeks. LONG-TERM GOALS 1. The patient will change a light bulb with 0/10 pain in 8 weeks. 2. The patient will restack his cupboards with dishes in 8 weeks with 0/10 pain. FREQUENCY AND DURATION Two times a week for 8 weeks. G-CODES: [id number], [id number] based on clinical judgment. CERTIFICATION PERIOD 11/25/2013 through 01/09/2014. I have reviewed this plan of treatment and certify a continuing need for services. Please sign this plan of care and return in the enclosed self-addressed, stamped envelope. Benja Brown P.T./pos Electronically Signed By: BENJA BROWN PT On: 12/18/2013 11:44 AM Modified by and Electronically Signed by: BENJA BROWN PT On: 12/18/2013 11:44 AM Co-Signed By: CATHY MCCOY MD On: 05/04/2014 11:24 AM Source: [facility] MHSDOLBEYNONRADSYS Document Id: [id number] documented in this encounter Plan of Treatment Not on filedocumented as of this encounter Visit Diagnoses Not on filedocumented in this encounter
--- OUTSIDE RECORDS SUMMARY | 2022-05-24 18:28 | XMS_ITS | Encounter Summary ---
:1945 Author Organization [facility] Address [address] [place] [address] Care Team Providers Name Role Phone Unavailable Primary Care Provider Unavailable Encounter Details Date Type Department Care Team Description 10/01/2013 Hospital Encounter HX [facility] Tammy Davis M.D. Social History Tobacco Use [...] needed 0.5 % nasal spray for allergies sodium chloride 3 % Administer 2 sprays 0 013 mist into each nostril 4 (four) times a day as needed. BISMUTH SUBSALICYLATE Take by mouth as 0 03/13/20 09 04/01/2019 ORAL needed. documented as of this encounter Miscellaneous Notes Miscellaneous - Nikia Mccoy M.D. - 10/01/2013 5:04 PM CST Normal Results Letter [address] [id number] [facility] [id number] Dear A[address] [facility], I am pleased to report that your results from the following diagnostic test(s) are normal. Please follow up with us as we discussed during your visit or sooner if you have any concerns. If you have questions or concerns, please do not hesitate to call our office. Result Name Current Result Previous Result Normal Range Cholesterol (mg/dL) (L) 108.0 10/01/2013 130.0 10/04/2012 120.0 - 200.0 Trig (mg/dL) 113 10/01/2013 165 10/04/2012 - <=149 HDL (mg/dL) (L) 23 10/01/2013 (L) 24.0 10/04/2012 >=40 - LDL Calculated (mg/dL) 62 10/01/2013 73 10/04/2012 60 - 130 Chol/HDL Ratio 4.7 10/01/2013 5.4 10/04/2012 LDL/HDL 3 10/01/2013 3 10/04/2012 Sincerely, NIKIA MCCOY [address] [place], [place] [id number] Electronic Signature Electronically Signed By: NIKIA MCCOY MD On: 01 October 2013 This document has images extracted. Source: [facility] POWERCHART Document Id: [id number] Electronically signed by Conversion, [facility] Surface Supervisor [id number] at 02/07/2017 7:17 AM CDT documented in this encounter Plan of Treatment Not on filedocumented as of this encounter Procedures Procedure Name Priority Date/Time Associated Diagnosis Comme nts LIPID PANEL, S Routine 10/01/2013 9:38 AM Results for this BATCH PLANT SUPERVISOR procedure are i n the results section . documented in this encounter Results (ABNORMAL) Lipid Panel (10/01/2013 9:38 AM BATCH PLANT SUPERVISOR) [facility] gist Method Time Signature Cholesterol, 108.0 (L) 120.0 - POWERCHART Total 200.0 MGDL HX HDL 23 (L) >=40 MGDL POWERCHART Triglycerides 113 <=149 POWERCHART MGDL Comment: The National Cholesterol Education Progr am (NCEP) has set the following guidelines for Triglycerides in adults ages 18 and up: Normal <150 mg/dL Borderline 150-199 mg/dL High 200-499 mg/dL Very High > or = 500 mg/dL The National Cholesterol Education Progr am (NCEP) has set the following guidelines for Triglycerides in children ages 2 to 17. Normal <90 mg/dL Borderline 90-129 mg/dL High > or = 130 mg/dL Calculated LDL 62 60 - 130 MGDL POWERCHART Total Cholesterol/HDL Ratio 4.7 PO WERCHART HXLDL/HDL 3 POWERCHART Specimen (Source) Anatomical Collection Method Collection Time Re ceived Time Location / / Volume Laterality Blood 10/01/2013 9:38 AM BATCH PLANT SUPERVISOR Nikia Mccoy M.D. LAB BLOOD ADD-ON Performing Organization Address City/State/ZIP Code Phon e Number POWERCHART documented in this encounter Visit Diagnoses Not on filedocumented in this encounter
--- OUTSIDE RECORDS SUMMARY | 2022-05-24 18:28 | XMS_ITS | Encounter Summary ---
:1945 Author Organization [facility] Address [address] [place] [address] Care Team Providers Name Role Phone Unavailable Primary Care Provider Unavailable Encounter Details Date Type Department Care Team Description 08/13/2014 Hospital Encounter [facility] Cisco Sam M. D. [address] [place] [address] (Wo rk) Social History Tobacco Use Types [...] ORAL needed. documented as of this encounter Plan of Treatment Not on filedocumented as of this encounter Visit Diagnoses Not on filedocumented in this encounter
--- OUTSIDE RECORDS SUMMARY | 2022-05-24 18:28 | XMS_ITS | Encounter Summary ---
:1945 Author Organization [facility] Address [address] [place] [address] Care Team Providers Name Role Phone Unavailable Primary Care Provider Unavailable Encounter Details Date Type Department Care Team Description 11/21/2013 Hospital Encounter [facility]X [facility] Tammy Maldonado M.D. Social History Tobacco Use Types Packs/Day [...] More than 4 times per year 06/14/2019 jehovah's witness services? Do you belong to any clubs [...]
--- OUTSIDE RECORDS SUMMARY | 2022-05-24 18:28 | XMS_ITS | Encounter Summary ---
:1945 Author Organization [facility] Address [address] [place] [address] Care Team Providers Name Role Phone Unavailable Primary Care Provider Unavailable Encounter Details Date Type Department Care Team Description 05/04/[address] [facility] Nikia Nava M.D. Social History Tobacco Use Types Packs/Day [...] Notes Miscellaneous - Nikia Mccoy M.D. - 05/29/2015 4:19 PM CDT Normal Results Letter 29 May 2015 JORGE CHANCE [id number] [facility] [id number] Dear JORGE CHANCE, I am pleased to report that your results from the following diagnostic test(s) are normal. Please follow up with us as we discussed during your visit or sooner if you have any concerns. If you have questions or concerns, please do not hesitate to call our office. Reason For Exam groin pain Report ABIs were performed at rest and with stress. The resting PEPPER in the right lower extremity was 1.21. This is within normal limits. The resting PEPPER in the left lower extremity was 1.30. This is also within normal limits. The resting segmental blood pressure data are normal. The Doppler waveforms are normal. The toe brachial index is normal bilaterally. The patient underwent a low grade exercise stress test. The resting heart rate was 75 beats per minute and the resting blood pressure was 106/68 mmHg. The patient exercised for 4 minutes, 49 seconds at 1.8 mph at 10% grade. The maximum heart rate was 90 beats per minute. The blood pressure response was normal. The patient did not have any chest pain or dyspnea on exertion. The ECG did not show any ST-segment changes suggestive of ischemia at low level exercise. The ECG did not show any evidence of dysrhythmia. Prior to the exercise the patient complained of pain in the proximal anterior right thigh, this was constant and did not change during exercise and recovery. At peak exercise he did not have any pain in the left leg but complained of weakness in both legs greater in the left lower extremity compared with the right and stated that he needed to stop. With exercise, the ABIs were normal. IMPRESSION: Normal exercise PEPPER study. Result Name Current Result US Ankle/Brachial Indicies Rest/Stress 05/04/2015 Sincerely, NIKIA MCCOY [address] [place] [address] Electronic Signature Electronically Signed By: NIKIA MCCOY MD On: 29 May 2015 This document has images extracted. Source: [employer] Document Id: [id number] Electronically signed by Conversion, [facility] Weight Inspector [id number] at 02/06/2017 2:14 AM CDT Miscellaneous - Conversion, Historical Provider Ser - 05/04/2015 11:59 PM CDT Coding Summary-Paper Based CODING DATE: 05/07/2015 FINAL [facility] STATUS: * Discharged to Home or Self Care PAYOR: Medicare Advantage ADMIT DX: REASON FOR VISIT DX: FINAL DX: PRINCIPAL: 789.00 Abdominal Pain, Unspecified Site SECONDARY: 729.5 Pain in Limb PROCEDURES DOCTOR NAME DATE NOTE: The code number assigned matches the documented diagnosis and / or procedure in the patient's chart. However, the narrative phrase printed from the coding software may appear abbreviated, or result in slightly different terminology. Coded By: SAMIRA MATUTE Date Saved: 05/07/2015 07:50 pm Source: [employer] Document Id: [id number] documented in this encounter Plan of Treatment Not on filedocumented as of this encounter Procedures Procedure Name Priority Date/Time Associated Diagnosis Comme nts US LOWER EXTREMITY Routine 05/04/2015 1:29 AM Res ults for this ARTERIES BILATERAL CDT procedure are in the results section. documented in this encounter Results US Lower Extremity Arteries Bilateral (05/04/2015 1:29 AM CDT) Anatomical Region Laterality Modality Lower Extremity Bilateral Ultrasound Specimen (Source) Anatomical Collection Method Collection Time Re ceived Time Location / / Volume Laterality 05/04/2015 1:29 AM CDT Addenda Addendum by Provider, Junior Worthington 05/04/2015 1:29 AM CDT RAD^^^MA US Ankle/Brachial indicies Rest/Stress 05/04/2015 01:29:00 Impressions 05/13/2015 11:37 AM CDT Normal exercise PEPPER study. Narrative 05/13/2015 11:37 AM CDT ABIs were performed at rest and with str ess. ??The resting PEPPER in the right lower extremity was 1.21. ??This i s within normal limits. ??The resting PEPPER in the left lower extremity was 1.30. ??This is also within normal limits. The resting segmen shane blood pressure data are normal. ??The Doppler waveforms are norm al. ??The toe brachial index is normal bilaterally. The patient underwent a low grade exerci se stress test. ??The resting heart rate was 75 beats per minute and t he resting blood pressure was 106/68 mmHg. ??The patient exercised for 4 minutes, 49 seconds at 1.8 mph at 10% grade. ??The maximum heart ra te was 90 beats per minute. The blood pressure response was normal. ??The patient did not have any chest pain or dyspnea on exertion. ??The ECG did not show any ST-segment changes suggestive of ischemi a at low level exercise. ??The ECG did not show any evidence of dysrhyt hmia. Prior to the exercise the patient compla ined of pain in the proximal anterior right thigh, this was constant and did not change during exercise and recovery. At peak exercise he did not have any raul n in the left leg but complained of weakness in both legs grea ter in the left lower extremity compared with the right and st ated that he needed to stop. With exercise, the ABIs were normal. Procedure Note Joseph Fiore M.D. / Provider, Sujata nelson M.D. - 01/18/2017 ABIs were performed at rest and with str ess. The resting PEPPER in the right lower extremity was 1.21. This is within normal limits. The resting PEPPER in the left lower extremity was 1.30. This is also within normal limits. The resting segmen shane blood pressure data are normal. The Doppler waveforms are normal . The toe brachial index is normal bilaterally. The patient underwent a low grade exerci se stress test. The resting heart rate was 75 beats per minute and t he resting blood pressure was 106/68 mmHg. The patient exercised for 4 minutes, 49 seconds at 1.8 mph at 10% grade. The maximum heart rate was 90 beats per minute. The blood pressure response was normal. The patient did not have any chest pain or dyspnea on exertion. The E CG did not show any ST-segment changes suggestive of ischemi a at low level exercise. The ECG did not show any evidence of dysrhyt hmia. Prior to the exercise the patient compla ined of pain in the proximal anterior right thigh, this was constant and did not change during exercise and recovery. At peak exercise he did not have any raul n in the left leg but complained of weakness in both legs grea ter in the left lower extremity compared with the right and st ated that he needed to stop. With exercise, the ABIs were normal. IMPRESSION: Normal exercise PEPPER study. Authorizing Provider Result Jose Alejandro BABB US PROCEDURES documented in this encounter Visit Diagnoses Not on filedocumented in this encounter
--- OUTSIDE RECORDS SUMMARY | 2022-05-24 18:28 | XMS_ITS | Encounter Summary ---
:1945 Author Organization [facility] Address [address] [place] [address] Care Team Providers Name Role Phone Unavailable Primary Care Provider Unavailable Encounter Details Date Type Department Care Team Description 07/31/2014 Hospital Encounter HX [facility] Jerica Freeman M. D. Social History Tobacco [...] Sign Reading Time Taken Comments Blood Pressure 120/56 07/31/2014 10:56 AM BUSINESS EXECUTIVE Pulse 56 07/31/2014 10:56 AM BUSINESS EXECUTIVE Temperature - - Respiratory Rate 16 07/31/2014 10:56 AM BUSINESS EXECUTIVE Oxygen Saturation - - Inhaled Oxygen Concentration - - Weight 112 kg (246 lb 4.1 oz) 07/31/2014 10:56 AM BUSINESS EXECUTIVE Height 194 cm (6' 4.38) 07/31/2014 10:56 AM BUSINESS EXECUTIVE Body Mass Index 29.68 07/31/2014 10:56 AM BUSINESS EXECUTIVE documented in this encounter Medications at Time [...] encounter Progress Notes Jerica Ellison M.D. 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 PRIMARY PHYSICIAN: Dr. Cathy Mccoy. CONSULT: Juliano Ellison M.D. HISTORY OF PRESENT ILLNESS Mr. Chance returned to clinic with his . The patient has gained approximately 10 pounds sinceI met him last year. 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 The patienttells me, if he forgets to take his pill, he would end up with diarrhea almost immediately. Other than that, he has no complaint. PHYSICAL EXAMINATION VITAL SIGNS: Temperature 36.3, pulse 56, respiratory rate 16, blood pressure 120/56, weight is 112 kg. Body mass index 29.7. ABDOMEN: Round, soft, nontender. Bowel sounds present. Normoactive. IMPRESSION/REPORT Chronic calcific pancreatitis secondary to a remote history of alcohol abuse. PLAN: Obtain CEA, CA-19-9, MRI of the pancreas with MRCP to exclude early pancreatic tumor. Return to clinic in 1 year. Pneumococcal vaccine x1 prior to discharge. Continue Creon supplement at approximately 3 tablets with each meal. Juliano Ellison M.D./pos cc: Cathy Mccoy M.D. [facility] -- [place] [address] Electronically Signed By: JERICA ELLISON MD On: 08/19/2014 12:32 PM Modified by and Electronically Signed by: JERICA ELLISON MD On: 08/19/2014 12:32 PM Source: [facility] [id number] Document Id: [id number] NESS EXECUTIVE documented in this encounter Procedure Notes Mckenna Redding L.P.NKamila - 02/20/2014 3:31 PM CDT Vision Testing Vision Testing Entered On: 2014 15:33 CDT Performed On: 02/20/2014 15:31 CDT by MCKENNA REDDING LPN Vision Testing Eye, Right with Correction : 20/20 Eye, Left w/Correction : 20/25 Comments : no diabetic ocular complications or retinopathy MCKENNA REDDING LPN - 2014 15:31 CDT Source: [facility] POWERCHART Document Id: [id number] CDT!5 documented in this encounter Miscellaneous Notes Miscellaneous - Polo Jean-Baptiste L.P.NKamila - 08/12/2014 11:51 AM CST schedule Document Contains Addenda Addendum by POLO JEAN-BAPTISTE LPN on 12 August 2014 13:05:17 BUSINESS EXECUTIVE Patient was notified about Rx and verbalized understanding. Addendum by SVETLANA SAINI on 12 August 2014 12:39:38 BUSINESS EXECUTIVE From: SVETLANA SAINI ([place] [facility] Second Floor) To: POLO JEAN-BAPTISTE LPN; Sent: 08/12/2014 12:39:38 BUSINESS EXECUTIVE Subject: RE: schedule Patient was contacted and labs are scheduled for tomorrow morning in [place]. Patient also questioned if the perscription for Advant has been called in to his pharmacy. Please contact patient and advise. (or let me know and I will be happy to call the patient back.) Thank you. From: POLO JEAN-BAPTISTE LPN To: [facility] Second Floor; Sent: 08/12/2014 11:51:04 BUSINESS EXECUTIVE Subject: schedule Please contact and schedule patient for labs creatine/ BUN before 08/19/14. The patient is scheduled for a procedure at 700 on 08/19/14 and they need to be complete prior to that. Thank you. Source: [facility] POWERCHART Document Id: [id number] Electronically signed by Conversion, [facility] Varnisher Plasticoater [id number] at 02/07/2017 6:07 AM CDT Miscellaneous - Tawnya Alberto, R.N. - 07/31/2014 11:41 AM CST MRI Screening Questionnaire MRI Screening Questionnaire Entered On: 07/31/2014 11:44 BUSINESS EXECUTIVE Performed On: 07/31/2014 11:41 BUSINESS EXECUTIVE by TAWNYA ALBERTO LPN MRI Questionnaire Previous MRI, CT, or X-rays Done : No Previous Films Requested : Yes TAWNYA ALBERTO LPN - 07/31/2014 11:41 BUSINESS EXECUTIVE MRI Cannot be Done Grid Automated Internal Cardiac Defibrillator : No Brain aneurysm clips : No Cochlear implant : No History of pacemaker : No Implants with a magnet : No Internal electrodes/wires : No Neurostimulator/Biostimulator : No Glendora george catheter : No TAWNYA ALBERTO LPN - 07/31/2014 11:41 BUSINESS EXECUTIVE MRI Risk Factors Grid Age 69 or Older : Yes Diabetes (document medication) : Yes History of Kidney/Liver Transplant : No History of Renal Disease : No Hypertension : Yes Receiving Dialysis : No TAWNYA ALBERTO LPN - 07/31/2014 11:41 BUSINESS EXECUTIVE Creatinine/GFR Results Completed : Yes TAWNYA ALBERTO [facility] - 07/31/2014 11:41 BUSINESS EXECUTIVE MRI Implants, Devices, Conditions Grid Aneurysm clip : No Control Implants (IUD, diaphragm) : Yes (Comment: 2005 [TAWNYA ALBERTO [facility] - 07/31/2014 11:41 BUSINESS EXECUTIVE] ) Intravascular Coil, Filter or Stent : No Drug Infusion Pump : No External Pain Control Device : No Intravascular Catheter/Port : No Magnetic/Elec/Mech Activated Implant : No Prosthesis/Metal Implanted Surgical : No Metal Fragments in Body : No Bullets/BB's/Shrapnel in Body : No Tattoos/Perm Make-Up/Body Jewelry : No Hearing Aids/Dentures/Partial Plates : No History of cancer : No Eye Surgery/Implant : No Inner Ear Surgery/Implant : No Transdermal Med or EKG Patches : No Shunt : No Penile Implant : No Breast 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 Casting Operator Helper/Implant : No : No (document number of weeks in Comment) : No Surgery : Yes (Comment: Coronary artery stent [TAWNYA ABLERTO [facility] - 07/31/2014 11:41 BUSINESS EXECUTIVE] ) TAWNYA ALBERTO [facility] - 07/31/2014 11:41 BUSINESS EXECUTIVE Claustrophobic : Yes Claustrophobic Special Requirements : Oral medication per protocol Pain/Unable to Lay Still : No Metal In or Removed from Eyes Ever : No Form Completed : Yes Education Materials Provided : Yes TAWNYA ALBERTO [facility] - 07/31/2014 11:41 BUSINESS EXECUTIVE [facility]: [facility] [employer] Document Id: [id number] BUSINESS EXECUTIVE!50 NESS EXECUTIVE Miscellaneous - Jerica Ellison M.D. - 07/31/2014 11:18 AM CST Ambulatory Patient Summary [address], [address] [place], [place] [id number] Visit Information Name: AVE CHANCE [facility] Number: [id number] Current Date: 07/31/2014 11:18:40 Physicians Attending Provider: JERICA ELLISON MD Primary [...] nasal (fluticasone nasal 0.05 mg/inh spray) 2 [place](s), Nasal, once a day PLEASE USE YOU WERE SHOWN IN THE OFFICE SO TO AVOID THE MIDDLE SEPTUM gemfibrozil (gemfibrozil 600 mg oral tablet) 1 Tablet(s), Oral, two times a day indomethacin (indomethacin 25 mg oral capsule) 1 cap, Oral, three times a day as needed for Pain Take with food insulin lispro protamine-insulin lispro (Humalog Mix 75/25 subcutaneous suspension) See [id number] units bid lisinopril (lisinopril 5 mg oral [...] 1 cap, Oral, three times a day Routedto EXPRESSSCRIPTSHOMEDELIVERY [address] [place] [address] phenylephrine (phenylephrine hydrochloride 10 mg oral tablet) 1 Tablet(s), Oral, every 4 hours as needed for allergies phenylephrine nasal (phenylephrine 0.5% nasal spray) as needed for allergies simethicone (Gas-X) 80 mg, , two times a day sodium chloride nasal (Saline Nasal Mist nasal spray) 2 [place](s), Nostrils(Both), four times a day as needed for Dry nasal passages triamcinolone topical (Kenalog in Orabase 0.1% mucous membrane paste) 1 cecile, Topical, four times a day as needed for tooth pain Stop Taking the Following Medications: Medication list as of 07-31-14 11:18 Attention: If you have any medications at [...] appointment detail needed. Your Goals/Additional instructions: Source: [facility] POWERCHART Document Id: [id number] NESS EXECUTIVE Miscellaneous - Jerica Ellison M.D. - 07/31/2014 11:18 AM CST Ambulatory Discharge Medication List [address] [place] [phone] Visit Information Name: AVE CHANCE [facility] Number: [id number] Visit Date: 07/31/2014 11:18:37 Attending Provider: JERICA ELLISON MD Primary Care [...] nasal (fluticasone nasal 0.05 mg/inh spray) 2 [place](s), Nasal, once a day PLEASE USE YOU WERE SHOWN IN THE OFFICE SO TO AVOID THE MIDDLE SEPTUM gemfibrozil (gemfibrozil 600 mg oral tablet) 1 Tablet(s), Oral, two times a day indomethacin (indomethacin 25 mg oral capsule) 1 cap, Oral, three times a day as needed for Pain Take with food insulin lispro protamine-insulin lispro (Humalog Mix 75/25 subcutaneous suspension) See [id number] units bid lisinopril (lisinopril 5 mg oral [...] 1 cap, Oral, three times a day Routedto EXPRESSSCRIPTSHOMEDELIVERY [address] [place] [address] phenylephrine (phenylephrine hydrochloride 10 mg oral tablet) 1 Tablet(s), Oral, every 4 hours as needed for allergies phenylephrine nasal (phenylephrine 0.5% nasal spray) as needed for allergies simethicone (Gas-X) 80 mg, , two times a day sodium chloride nasal (Saline Nasal Mist nasal spray) 2 [place](s), Nostrils(Both), four times a day as needed for Dry nasal passages triamcinolone topical (Kenalog in Orabase 0.1% mucous membrane paste) 1 cecile, Topical, four times a day as needed for tooth pain Stop Taking the Following Medications: Medication list as of 07-31-14 11:18 Attention: If you have any medications at [...] Signed By: Signed On: Additional Information: Source: [facility] POWERCHART Document Id: [id number] NESS EXECUTIVE Miscellaneous - Polo Jean-Baptiste L.P.N. 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 Operator Intake/History Adult Multi Operation Machine Operator Intake/History Entered On: 07/31/2014 10:58 BUSINESS EXECUTIVE Performed On: 07/31/2014 10:56 BUSINESS EXECUTIVE by POLO JEAN-BAPTISTE LPN Intake Chief Complaint : RV- Chronic pancreatitis Temperature Core : 36.3 DegC(Converted to: 97.3 DegF) (LOW) Peripheral Pulse Rate : 56 /min (LOW) Respiratory Rate : 16 /min Heart Rhythm : Regular Systolic Blood Pressure : 120 mmHg Diastolic Blood Pressure : 56 mmHg NIBP Mean : 77 mmHg BP Location : Right upper extremity Blood Pressure Cuff Size : Large Height : 194 cm(Converted to: 6 ft 4 inch(es), 76 inch(es)) Actual Weight : 111.7 kg(Converted to: 246 lb 4 oz) Weight Source : Standing scale Dosing Weight Clinic : 111.7 kg Clinic BSA : 2.45 Body Mass Index : 29.68 kg/m2 POLO JEAN-BAPTISTE PROGRAM HOST - 07/31/2014 10:56 BUSINESS EXECUTIVE General Info Information Given By : Patient Preferred Communication Mode : Verbal Languages : [place] Is Patient Female and 13-50 no hysterectomy : POLO Torres PROGRAM HOST - 07/31/2014 10:56 BUSINESS EXECUTIVE Subjective Pain Symptoms : POLO Torres PROGRAM HOST 07/31/2014 10:56 BUSINESS EXECUTIVE Dependent Habits Tobacco Use/Currently Using : No Exposure to Tobacco Smoke : Other: non smoker Smoking Status : Never smoker POLO JEAN-BAPTISTE LPN - 07/31/2014 10:56 BUSINESS EXECUTIVE Tobacco Use Grid Last Use : Never POLO JEAN-BAPTISTE LPN 07/31/2014 10:56 BUSINESS EXECUTIVE Alcohol Use : No POLO JEAN-BAPTISTE LPN 07/31/2014 10:56 BUSINESS EXECUTIVE Caffeine Use Grid Caffeine Use : Current Type : Coffee Frequency : Daily POLO JEAN-BAPTISTE LPN 07/31/2014 10:56 BUSINESS EXECUTIVE ID Screen Travel Within Last 21 Days : POLO Torres LPN 07/31/2014 10:56 BUSINESS EXECUTIVE Source: [employer] Document Id: [id number] BUSINESS EXECUTIVE!40 NESS EXECUTIVE Miscellmaranda - Polo Jean-Baptiste L.P.N. - 06/05/2014 1:[address] Ellison Document Contains Addenda Addendum by GWEN NEW on 05 June 2014 14:24:25 CDT From: GWEN NEW ([place] [facility] Second [facility]) To: POLO JEAN-BAPTISTE LPN; Sent: 06/05/2014 14:24:25 CDT Subject: RE: reschedule Dr. Ellison pt contacted and appt moved to 07/31 From: POLO JEAN-BAPTISTE LPN To: [facility] Second Floor; Sent: 06/05/2014 13:43:50 CDT Subject: reschedule Dr. Ellison Can you please contact and reschedule patient with Dr. Ellison from 07/24/14 to the week prior to or following. Thank you Source: [facility] [employer]annelCHART Document Id: [id number] Miscellaneous - Shirin Weeks L.PIván - 02/20/2014 11:37 AM CDT Quality Measures Quality Measures Entered On: 03/04/2014 11:37 CDT Performed On: 02/20/2014 11:37 CDT by SHIRIN WEEKS LPN Diabetes Date of Last Eye Exam : 02/20/2014 CDT SHIRIN WEEKS LPN - 03/04/2014 11:37 CDT Source: [facility] [employer] Document Id: [id number] CDT!3 documented in this encounter Plan of Treatment Not on filedocumented as of this encounter Procedures Procedure Name Priority Date/Time Associated Comments Diagnosis CARBOHYDRATE AG 19-9 (CA Routine 07/31/2014 12:09 Results for this 19-9), S PM BUSINESS EXECUTIVE procedure are i n the results section. CARCINOEMBRYONIC AG Routine 07/31/2014 12:09 Resu lts for this (CEA), S PM BUSINESS EXECUTIVE procedure are i n the results section. documented in this encounter Results CA 19-9 (Carbohydrate Antigen 19-9) (07/31/2014 12:09 PM BUSINESS EXECUTIVE) Analysis Performed At Patho logist Time Signature Carbohydrate Ag 15 <55 UNITML POWERCHART 19-9, S Comment: ADDITIONAL INFORMATIO N The testing method is an immunoenzymatic assay manufactured by [employer] and performed on the [employer] DxI 800. Values obtained with different assay met hods or kits may be different and cannot be used inte rchangeably. Test results cannot be interpreted as ab solute evidence for the presence or absence of malignant disease. Test Performed by: [place] [address] [employer] Carpenter: Blade Felix Specimen (Source) Anatomical Collection Method Collection Time Re ceived Time Location / / Volume Laterality Blood 07/31/2014 12:09 PM BUSINESS EXECUTIVE Jerica Ellison M.D. LAB BLOOD ADD-ON Performing Organization Address City/State/ZIP Code Phon e Number POWERCHART CEA (Carcinoembryonic Antigen) (07/31/2014 12:09 PM BUSINESS EXECUTIVE) Patholo gist Method Time Signature Carcinoembryonic Ag 2.1 NGML POWERCHART (CEA), S Comment: Non smoker 20-69 yrs: <=3.8 ng/mL Smokers 20-69 yrs: <=5.5 ng/mL The testing method is an Electrochemilum inometric Immunoassay manufactured by [employer] and performed on the Exam18 e411 /e601. Values obtained with different assay met hods or kits may be different and cannot be used interchangeably. Test results cannot be interpreted as ab solute evidence for the presence or absence of malignant disease Specimen (Source) Anatomical Collection Method Collection Time Re ceived Time Location / / Volume Laterality Blood 07/31/2014 12:09 PM BUSINESS EXECUTIVE Jerica Ellison M.D. LAB BLOOD ADD-ON Performing Organization Address City/State/ZIP Code Phon e Number POWERCHART documented in this encounter Visit Diagnoses Not on filedocumented in this encounter
--- OUTSIDE RECORDS SUMMARY | 2022-05-24 18:28 | XMS_ITS | Encounter Summary ---
:[address] [facility] Address [address] [place] [address] Care Team Providers Name Role Phone Unavailable Primary Care Provider Unavailable Encounter Details Date Type Department Care Team Description 03/23/2015 - Hospital Encounter HX [facility] PT Nadine, 04/06/2015 Junior Morgan Social History Tobacco Use Types [...] documented as of this encounter Progress Notes Shaq Bernard P.T. - 04/06/2015 12:00 AM CDT [id number] REASON FOR VISIT: Subjectively, the patient has reports of no significant change. He states that he has not heard back from Dr. Mccoy's office concerning having any additional testing. PT will follow up on this. The patient also has some questions on his exercises. He forgot it. He thought he could remember them last visit, but he brings his in with him. He requests written instructions. OBJECTIVE: (Therapeutic exercises 10 minutes). The patient's strength testing of the lower extremities is the same as initial evaluation. He is ambulating with a normal gait, but still reports having limited tolerance for endurance. We reviewed hisexercises and gave him written instructions including blue Thera-Band, hip abduction, seated flexionand quad strengthening via long arc quads 2 x10, progressing to 3 sets of 15. IMPRESSION: Subjectively, the patient still has symptoms consistent with lower extremity claudication. Strongly recommend a vascular consult or further assessment such as stress and resting ABIs. We will again forward this note to Dr. Mccoy for consideration. PLAN: G Codes: Mobility: Walking and moving around: Goal status B6558-[id number]; discharge status E2747-ZY. Patient was seen for 2 visits on 03/23 and 04/06/2015 for lower extremity strengthening. The patientreferred back to his primary physician for consideration of vascular studies. Patient dismissed and is independent with proximal lower extremity strengthening program. Shaq Bernard P.T., D.Sc./pos Electronically Signed By: SHAQ BERNARD PTDSc On: 04/08/2015 07:25 AM Modified by and Electronically Signed by: SHAQ BERNARD PT, DSc On: 04/08/2015 07:25 AM Source: [facility] Document Id: [id number] documented in this encounter Consult Notes Shaq Bernard P.T. - 03/23/2015 12:00 AM CDT [id number] Start of Care: Onset Date: 02/27/2015 Medicare Number: [id number] Patient Type: PT Provider Number: [id number] Referring Physician: Nikia Mccoy M.D. Medical Diagnoses: 1. Diabetes. 2. Imbalance. 3. Bilateral foot pain. Treatment Diagnoses: 1. Limited activity tolerance. 2. Impaired mobility. INITIAL ASSESSMENT History/Interview/Reason for referral/current complaint: The patient is a very pleasant 70-year-old male referred to physical therapy by his primary physician, Dr. Nikia Mccoy. The patient doesstate that he has kind of chronic imbalance problems due to his neuropathy. He denies having any falls because of it. His primary concern is that of very limited ambulation tolerance due to weakness inhis proximal lower extremity and hip region. He states that when he goes to [employer] or [employer] he can only walk for about 10 minutes and then he has to sit down otherwise he feels like his legs will buckle. Denies any numbness or tingling. Denies any lower extremity pain. Denies any back pain. No history of trauma. States that this basically started coming on the earlier part of this year. He does have some pain associated, but just rates it 4/10 and points to his anterior bilateral hips and anterior proximal thighs. Negative C/S/S. Negative bowel and bladder. Again, denies nighttime pain. Once he experiences this weakness he has to sit down for about a minute or 2 and then it seems to resolve andhe can get back up and walk again. Prolonged standing can cause the same effects, but walking is definitely more bothersome for him. Pertinent medical and social history: Significant for [place] with stent placement, CAD, diabetes, hypertension, hyperlipidemia. The patient denies ever smoking. He lives in his own home. Functional status prior to onset of treatment diagnosis: The patient was able to ambulate throughoutthe community without limitations of weakness in the lower extremity. EXAMINATION Observation: The patient does not appear to be in any acute distress. Very pleasant and cooperative.Excellent historian. PROM/AROM: Active range of motion of the standing trunk is functional throughout. Repeated forward bending and repeated back extension does not exacerbate his pain. Side bending and rotations are functional. Range of motion actively is symmetrical with functional movement. MMT: 5/5 throughout, however, the left hip flexor seems to fatigue out very quickly after about only4 repeated muscle tests. Lower extremity strength is generally 4+/5 throughout with the exception ofleft hip flexion 3+/5. Knee and ankle strength is 4+/5 throughout. Palpation: We are able to palpate dorsalis and posterior tibialis pulses bilaterally. His skin temperature is warm until about the ankle and then distally it is very cool to the touch. Skin is a littlebit darker in appearance. Pain: 4/10 with activity. Special Tests/Functional Outcome Measures: We did complete ABIs for the patient at rest and his right side was 1.29 and left side is 1.27. Had the patient ambulate 400 feet and then he requested to sitquite abruptly. After about a 2 minute rest he was able to recover and get back up and walk again. He was having mild complaints of pain over his anterior thigh. Denies any groin pain. Gait is normal with no lateral lurch or Trendelenburg lurch. Next, we had him perform physical activity on the seatedrecumbent bike in order to help differentiate between claudication or pseudoclaudication. Had the patient perform lower extremity only resistance #5 x4 minutes and then that was the time of onset of similar symptoms as with walking. Again, denies any calf pain, but reports it being more weakness and discomfort over his proximal thighs and anterior hips. Integumentary: As stated above. He does have a dried scab over the dorsum of his right foot that he states is due to wearing a nylon sock. This is about 0.5 cm in diameter and still is not completely healed over and it has nearly a month and a half. Neurological Evaluation: Absent light touch for stocking-glove manner of the bilateral feet and ankles. He does not have any sensation to light touch until about midcalf. Gait/Balance: As stated above. Normal. ASSESSMENT Current status of functional impairments/Problem list: A 70-year-old with a history of cardiac disease and his subjective complaints and history are very consistent with claudication symptoms, possiblyof the iliofemoral arteries bilaterally. Prognosis for improvements and indicators: Fair. Patient/Family goals: To be able to walk further without limitations of weakness and pain. TREATMENT: (Evaluation 1 unit, therapeutic exercises 15 minutes: Total treatment time 50 minutes): The patient was instructed in green Thera-Band hip abduction in sitting, seated hip flexion, and lowerextremity seated long arc quads for quad strengthening, 3 x10 repetitions. We did give him written instructions of these exercises as well. He reported good tolerance, but did fatigue out with marchingexercise. ASSESSMENT/REASONS FOR CONTINUING TREATMENT: A 70-year-old male with complaint of poor walking tolerance due to weakness and mild discomfort in his anterior hips and proximal thighs. It does consistently resolve after about a 2 minute rest, suggesting claudication like symptoms. We discussed this withDr. Thorne and recommended resting and stress ABIs. We conveyed this to Dr. Mccoy, who is going to place the order. PLAN: The patient is recommended for further vascular studies starting with ABIs and possibly further contrast imaging depending on results. We did initiate an exercise program, encouraged him to continue to ambulate as able, but to strategically have rest stops throughout his walk so that he can helpmaintain his cardiovascular fitness and possible improve it. Patient in agreement. SHORT-TERM GOALS: 1. The patient will be assessed and recommendations for home exercise program in 1 visit. This goal is achieved. 2. The patient will be recommended for further appropriate vascular studies to rule out claudication. This goal is achieved. LONG-TERM GOAL: The patient will be able to ambulate for 6 minutes before requiring a seated rest break in 4 weeks' time. G CODES: Mobility: Walking and moving around. Current status F1474-GM; goal status F9646-MO. FREQUENCY/DURATION: Once a week for 4 weeks. CERTIFICATION PERIOD: 03/23/2015 through 04/20/2015. Shaq Bernard P.T., D.Sc./pos Electronically Signed By: SHAQ BERNARD PT,DSc On: 03/30/2015 10:09 PM Co-Signed By: NIKIA MCCOY MD On: 04/27/2015 10:08 PM Source: [facility] Document Id: [id number] documented in this encounter Miscellaneous Notes Miscellaneous - Conversion, Historical Provider Ser - 03/27/2015 7:55 PM CDT Coding Summary-Paper Based CODING DATE: 03/27/2015 FINAL [facility] [place] [facility] STATUS: Still Patient/Expected to Rtn Oupt Svc PAYOR: Medicare Advantage ADMIT DX: REASON FOR VISIT DX: FINAL DX: PRINCIPAL: V57.1 Care Involving Other Physical Therapy SECONDARY: 729.5 Pain in Limb 781.3 Lack of Coordination 250.00 Diabetes Mellitus without Mention of Complication, Type II or Unspecified Type, Not Stated as Uncontrolled PROCEDURES DOCTOR NAME DATE NOTE: The code number assigned matches the documented diagnosis and / or procedure in the patient's chart. However, the narrative phrase printed from the coding software may appear abbreviated, or result in slightly different terminology. Coded By: MARYLOU MCCALLUM Date Saved: 03/27/2015 07:55 pm [facility] Document Id: [id number] Miscellaneous - Juan Luis Weeks L.P.N. - 03/17/2015 9:05 AM CDT Quality Measures Quality Measures Entered On: 04/03/2015 9:06 CDT Performed On: 03/17/2015 9:05 CDT by JUAN LUIS WEEKS LPN Diabetes Date of Last Eye Exam : 03/17/2015 CDT JUAN LUIS WEEKS LPN - 04/03/2015 9:05 CDT Source: [facility] [employer] Document Id: [id number] CDT!3 documented in this encounter Plan of Treatment Not on filedocumented as of this encounter Visit Diagnoses Not on filedocumented in this encounter
--- OUTSIDE RECORDS SUMMARY | 2022-05-24 18:28 | XMS_ITS | Encounter Summary ---
:1945 Author Organization [facility] Address [address] [place] [address] Care Team Providers Name Role Phone Unavailable Primary Care Provider Unavailable Encounter Details Date Type Department Care Team Description 08/05/2015 Hospital Encounter HX [facility] Jerica Freeman M. D. Social History [...] Sign Reading Time Taken Comments Blood Pressure 124/78 08/05/2015 12:56 PM SPOOLING SUPERVISOR Pulse 72 08/05/2015 12:56 PM SPOOLING SUPERVISOR Temperature - - Respiratory Rate 14 08/05/2015 12:56 PM SPOOLING SUPERVISOR Oxygen Saturation - - Inhaled Oxygen Concentration - - Weight 109 kg (240 lb 4.8 oz) 08/05/2015 12:56 PM SPOOLING SUPERVISOR Height 194 cm (6' 4.38) 08/05/2015 12:56 PM SPOOLING SUPERVISOR Body Mass Index 28.96 08/05/2015 12:56 PM SPOOLING SUPERVISOR documented in this encounter Medications at Time [...] encounter Progress Notes Jerica Ellison M.D. 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 PRIMARY PHYSICIAN: Dr. Cathy Mccoy ROD FINISHER: Dr. Juliano Ellison HISTORY OF PRESENT ILLNESS Mr. Chance returned to clinic for yearly followup. The patient claimed to have more abdominal bloating, gas distention, as well as more frequent bowel movements. The stool was described as loose, approximately 2 to 3 times a day. The patient's hemoglobin A1c is still approximately 7.1, he has been requiring more insulin over the years due to pancreatic failure. Since the patient was started on Creon over last 2 years, he has gained back 20 pounds. He had no weight loss compared to last year. The MRI and MRCP of the pancreas showed no evidence of pancreatic tumor. Pancreas is atrophied with calcified stone within the dilated pancreatic duct. Labs were within normal limits. PHYSICAL EXAMINATION VITAL SIGNS: Temperature 36.6, pulse 72, respiratory rate 14, blood pressure 124/78, weight is 109 kg. Body mass index 29. LUNGS: Bilaterally clear to auscultation. HEART: Regular rate and rhythm. No audible murmurs. ABDOMEN: Slightly protuberant, soft, nontender. No excessive tympany. Bowel sounds present, normoactive. There is no hepatosplenomegaly. EXTREMITIES: Nontender, no pitting edema. IMPRESSION: Chronic pancreatitis with pancreatic insufficiency. PLAN: Increase Creon to 2 tablets with each meal. Pneumococcal-13 vaccine today prior to discharge. Obtain CEA CA-19-9, vitamin B12, and folic acid to exclude folic acid and B12 deficiency causing macrocytosis. Return to clinic in 1 year for followup. The patient was given three 1 mg tablets of Ativanfor the MRI, due to his claustrophobia. Juliano Ellison M.D./pos cc: Cathy Mccoy M.D. [facility] -- [place] in [address] [address] Electronically Signed By: JERICA ELLISON MD On: 05/05/2016 05:05 PM Modified by and Electronically Signed by: JERICA ELLISON MD On: 05/05/2016 05:05 PM Source: [facility] MHSDOLBEYNONRADSYS Document Id: [id number] documented in this encounter Nursing Notes Morris Thakkar - 08/05/2015 2:16 PM CST Preprocedure Education Preprocedure Education Entered On: 08/05/2015 14:16 SPOOLING SUPERVISOR Performed On: 08/05/2015 14:16 SPOOLING SUPERVISOR by MORRIS THAKKAR LPN Education Preprocedure Education Grid Procedure Type : MRI Education Topics : Anesthesia/Sedation, Family instructions, Medication instructions, Pain management, Patient rights and responsibilities, Preprocedure diet Individuals Taught : Patient, Spouse Barriers to Learning : None evident Teaching Method : Explanation, Printed materials Teaching Evaluation : Able to teach back, Verbalizes understanding MORRIS THAKKAR LPN - 08/05/2015 14:16 SPOOLING SUPERVISOR Source: [facility] POWERCHART Document Id: [id number] SPOOLING SUPERVISOR!10 LING SUPERVISOR documented in this encounter Miscellaneous Notes Miscellaneous - Morris Thakkar - 08/05/2015 1:57 PM CST MRI Screening Questionnaire MRI Screening Questionnaire Entered On: 08/05/2015 14:01 SPOOLING SUPERVISOR Performed On: 08/05/2015 13:57 SPOOLING SUPERVISOR by MORRIS THAKKAR [facility] MRI Questionnaire Previous MRI, CT, or X-rays Done : Yes MORRIS THAKKAR LPN - 08/05/2015 13:57 SPOOLING SUPERVISOR MRI Cannot be Done Grid Automated Internal Cardiac Defibrillator : No Brain aneurysm clips : No Cochlear implant : No History of pacemaker : No Implants with a magnet : No Internal electrodes/wires : No Neurostimulator/Biostimulator : No [facility] catheter : No MORRIS THAKKAR LPN - 08/05/2015 13:57 SPOOLING SUPERVISOR Patient Weight > 350 lbs : No MORRIS THAKKAR LPN - 08/05/2015 13:57 SPOOLING SUPERVISOR MRI Risk Factors Grid Patient is greater than 69 years old : Yes Diabetes (document medication) : Yes History of Kidney/Liver Transplant : No History of Renal Disease : No Hypertension : Yes Receiving Dialysis : No MORRIS THAKKAR LPN - 08/05/2015 13:57 SPOOLING SUPERVISOR Creatinine/GFR Results Completed : Pending MORRIS THAKKAR LPN - 08/05/2015 13:57 SPOOLING SUPERVISOR MRI Implants, Devices, Conditions Grid Aneurysm clip : No Control Implants (IUD, diaphragm) : No Intravascular Coil, Filter or Stent : Yes Drug Infusion Pump : No External Pain Control Device : No Intravascular Catheter/Port : No Magnetic/Elec/Mech Activated Implant : No Prosthesis/Metal Implanted Surgical : No Metal Fragments in Body : No Bullets/BB's/Shrapnel in Body : No Tattoos/Perm Make-Up/Body Jewelry : No Hearing Aids/Dentures/Partial Plates : No History of cancer : Yes Eye Surgery/Implant : No Inner Ear Surgery/Implant : No Transdermal Med or EKG Patches : No Shunt : No Penile Implant : No Breast Tissue Knitting Machine Operator/Implant : No : No (document number of weeks in Comment) : No Surgery : Yes MORRIS THAKKAR LPN - 08/05/2015 13:57 SPOOLING SUPERVISOR Claustrophobic : Yes Claustrophobic Special Requirements : Physician contacted, oral medication ordered Pain/Unable to Lay Still : No Metal In or Removed from Eyes Ever : No Form Completed : Yes Education Materials Provided : Yes SOFIA THAKKARAH Giselle HARRIS - 08/05/2015 13:57 SPOOLING SUPERVISOR Source: [facility] POWERCHART Document Id: [id number] SPOOLING SUPERVISOR!50 LING SUPERVISOR Miscellaneous - Jerica Elliosn M.D. - 08/05/2015 1:52 PM CST Ambulatory Patient Summary [address] [place] [id number] Visit Information Name: [address] [facility] Number: [id number] Current Date: 08/05/2015 13:52:56 Physicians Attending Provider: JERICA ELLISON MD Primary [...] nasal (fluticasone nasal 0.05 mg/inh spray) 2 Fountain(s), Nasal, once a day gemfibrozil (gemfibrozil 600 mg oral tablet) 1 Tablet(s), Oral, two times a day *indomethacin (indomethacin 25 mg oral capsule) 1 cap, Oral, three times a day as needed for Pain Take with food insulin lispro protamine-insulin lispro (Humalog Mix 75/25 subcutaneous suspension) See [id number] am and 68 pm NEEDS APPT lisinopril (lisinopril 5 mg oral tablet) 1 Tablet(s), Oral, once a day LORazepam (LORazepam 1 mg oral tablet) 1 Tablet(s), Oral, three times a day as needed for Anxiety New Routed to Printer metFORMIN (metFORMIN 500 mg oral tablet, extended [...] 2 cap, Oral, three times a day This is a CHANGE [facility] [address] phenylephrine (phenylephrine hydrochloride 10 mg oral tablet) 1 Tablet(s), Oral, every 4 hours as needed for allergies phenylephrine nasal (phenylephrine 0.5% nasal spray) as needed for allergies simethicone (Gas-X) 80 mg, , as needed sodium chloride nasal (Saline Nasal Mist nasal spray) 2 Fountain(s), Nostrils(Both), four times a day as needed for Dry nasal passages triamcinolone topical (Kenalog in Orabase 0.1% mucous membrane paste) 1 cecile, Topical, four times a day as needed for tooth pain * You have let us know that you are not taking this medication as listed. Please talk with your primary care provider or the health care provider who prescribed the medication as soon as possible. Stop Taking the Following Medications: Medication list as of 08-05-15 13:52 Attention: If you have any medications at [...] Electronically Signed By: JERICA ELLISON MD Signed On:05-AUG-2015 13:52:19 Your Allergies & Intolerances Substance Reaction Symptoms [...] Your Upcoming Appointments Date Time Location Provider 08/31/2015 08:00 [facility] 09/01/2015 09:45 [facility] [place]win Mccoy MD, Cathy Murguia Attention: Contact your local Clinic if further [...] if you dont have one. Go to [email or web address] and click on Create Your Account. Then, follow the directions to complete the online form. Youll be asked for your [facility] number which you can find at the top of this document. Your Goals/Additional instructions: Source: [facility] POWERCHART Document Id: [id number] LING SUPERVISOR Miscellaneous - Jerica Ellison M.D. - 08/05/2015 1:52 PM CST Ambulatory Discharge Medication List [address] [place], [place] [id number] Visit Information Name: [address] Number: [id number] Visit Date: 08/05/2015 13:52:54 Attending Provider: JERICA ELLISON MD Primary Care [...] nasal (fluticasone nasal 0.05 mg/inh spray) 2 Fountain(s), Nasal, once a day gemfibrozil (gemfibrozil 600 mg oral tablet) 1 Tablet(s), Oral, two times a day *indomethacin (indomethacin 25 mg oral capsule) 1 cap, Oral, three times a day as needed for Pain Take with food insulin lispro protamine-insulin lispro (Humalog Mix 75/25 subcutaneous suspension) See [id number] am and 68 pm NEEDS APPT lisinopril (lisinopril 5 mg oral tablet) 1 Tablet(s), Oral, once a day LORazepam (LORazepam 1 mg oral tablet) 1 Tablet(s), Oral, three times a day as needed for Anxiety New Routed to Printer metFORMIN (metFORMIN 500 mg oral tablet, extended [...] 2 cap, Oral, three times a day This is a CHANGE Routed to [address] [address] phenylephrine (phenylephrine hydrochloride 10 mg oral tablet) 1 Tablet(s), Oral, every 4 hours as needed for allergies phenylephrine nasal (phenylephrine 0.5% nasal spray) as needed for allergies simethicone (Gas-X) 80 mg, , as needed sodium chloride nasal (Saline Nasal Mist nasal spray) 2 Fountain(s), Nostrils(Both), four times a day as needed for Dry nasal passages triamcinolone topical (Kenalog in Orabase 0.1% mucous membrane paste) 1 cecile, Topical, four times a day as needed for tooth pain * You have let us know that you are not taking this medication as listed. Please talk with your primary care provider or the health care provider who prescribed the medication as soon as possible. Stop Taking the Following Medications: Medication list as of 08-05-15 13:52 Attention: If you have any medications at [...] Electronically Signed By: JERICA ELLISON MD Signed On:05-AUG-2015 13:52:19 Additional Information: [facility] Document Id: [id number] LING SUPERVISOR Miscellaneous - Morris Thakkar - 08/05/2015 12:56 PM CST Adult Hand Flesher Intake/History Adult Hand Flesher Intake/History Entered On: 08/05/2015 12:59 SPOOLING SUPERVISOR Performed On: 08/05/2015 12:56 SPOOLING SUPERVISOR by MORRIS THAKKAR LPN Intake Chief Complaint : chronic pacreatitis with insufficiency Temperature Core : 36.6 DegC(Converted to: 97.9 DegF) Peripheral Pulse Rate : 72 /min Respiratory Rate : 14 /min Systolic Blood Pressure : 124 mmHg Diastolic Blood Pressure : 78 mmHg NIBP Mean : 93 mmHg BP Location : Right upper extremity Blood Pressure Cuff Size : Regular Height : 194 cm(Converted to: 6 ft 4 inch(es), 76 inch(es)) Actual Weight : 109.0 kg(Converted to: 240 lb 5 oz) Dosing Weight Clinic : 109 kg Clinic BSA : 2.42 Body Mass Index : 28.96 kg/m2 MORRIS THAKKAR LPN - 08/05/2015 12:56 SPOOLING SUPERVISOR General Info Information Given By : Patient Languages : Tunisian Is Patient Female and 13-50 no hysterectomy : No MORRIS THAKKAR LPN - 08/05/2015 12:56 SPOOLING SUPERVISOR Subjective Pain Symptoms : MORRIS Mckenna LPN - 08/05/2015 12:56 SPOOLING SUPERVISOR Dependent Habits Tobacco Use/Currently Using : No Exposure to Tobacco Smoke : Other: non smoker Smoking Status : Never smoker Alcohol Use : No MORRIS THAKKAR LPN - 08/05/2015 12:56 SPOOLING SUPERVISOR Caffeine Use Grid Caffeine Use : Current Type : Coffee Frequency : Daily MORRIS THAKKAR LPN - 08/05/2015 12:56 SPOOLING SUPERVISOR [facility] Document Id: [id number] SPOOLING SUPERVISOR!32 LING SUPERVISOR documented in this encounter Plan of Treatment Not on filedocumented as of this encounter Procedures Procedure Name Priority Date/Time Associated Comments Diagnosis CARBOHYDRATE AG 19-9 (CA Routine 08/05/2015 2:26 Results for this 19-9), S PM SPOOLING SUPERVISOR procedure are i n the results section. FOLATE, S Routine 08/05/2015 2:26 Results for this PM SPOOLING SUPERVISOR procedure are i n the results section. VITAMIN B12 ASSAY, S Routine 08/05/2015 2:26 Resu lts for this PM SPOOLING SUPERVISOR procedure are i n the results section. CREATININE WITH EGFR, Routine 08/05/2015 2:26 Res ults for this S/P PM SPOOLING SUPERVISOR procedure are i n the results section. CARCINOEMBRYONIC AG Routine 08/05/2015 2:26 Resul ts for this (CEA), S PM SPOOLING SUPERVISOR procedure are i n the results section. documented in this encounter Results Creatinine with eGFR (08/05/2015 2:26 PM SPOOLING SUPERVISOR) athologist Signature Creatinine 1.1 0.8 - 1.3 POWERCHART MGDL eGFR >60 >=60 MLMINSA POWERCHART Black/ HXeGFR (MDRD) >60 >=60 MLMINSA POWERCHART Comment: Results are in mL/min/1.73m squared CKD Stage I: ? GFR > 90 CKD Stage II: ?GFR 60 to 89 CKD Stage III: ? GFR 30 to 59 CKD Stage IV: ? GFR 15 to 29 CKD Stage V: ?GFR < 15 or Dialysi s Specimen (Source) Anatomical Collection Method Collection Time Re ceived Time Location / / Volume Laterality Blood 08/05/2015 2:26 PM SPOOLING SUPERVISOR Jerica Ellison M.D. LAB BLOOD ADD-ON Performing Organization Address City/State/ZIP Code Phon e Number POWERCHART Folate (08/05/2015 2:26 PM SPOOLING SUPERVISOR) athologist Signature Folate, S 18.5 >=4.6 NGML POWERCHART Specimen (Source) Anatomical Collection Method Collection Time Re ceived Time Location / / Volume Laterality Blood 08/05/2015 2:26 PM SPOOLING SUPERVISOR Jerica Ellison M.D. LAB BLOOD ADD-ON Performing Organization Address City/State/ZIP Code Phon e Number POWERCHART Vitamin B12 Assay (08/05/2015 2:26 PM SPOOLING SUPERVISOR) athologist Signature Vitamin B12 [phone] POWERCHART Assay, S PGML Specimen (Source) Anatomical Collection Method Collection Time Re ceived Time Location / / Volume Laterality Blood 08/05/2015 2:26 PM SPOOLING SUPERVISOR Jerica Ellison M.D. LAB BLOOD ADD-ON Performing Organization Address City/[facility]/ZIP Code Phon e Number POWERCHART CA 19-9 (Carbohydrate Antigen 19-9) (08/05/2015 2:26 PM SPOOLING SUPERVISOR) Analysis Performed At Patho logist Time Signature Carbohydrate Ag 12 <55 UNITML POWERCHART 19-9, S Comment: ADDITIONAL INFORMATIO N The testing method is an immunoenzymatic assay manufactured by [employer]. and performed on the DVTel DxI 800. Values obtained with different assay met hods or kits may be different and cannot be used inte rchangeably. Test results cannot be interpreted as ab solute evidence for the presence or absence of malignant disease. Test Performed by: [place] [address] Software Security Consultant: Duc Rosas II, M.D., Ph.D. Specimen (Source) Anatomical Collection Method Collection Time Re ceived Time Location / / Volume Laterality Blood 08/05/2015 2:26 PM SPOOLING SUPERVISOR Jerica Ellison M.D. LAB BLOOD ADD-ON Performing Organization Address City/[facility] Code Phon e Number POWERCHART CEA (Carcinoembryonic Antigen) (08/05/2015 2:26 PM SPOOLING SUPERVISOR) Patholo gist Method Time Signature Carcinoembryonic Ag 2.6 NGML POWERCHART (CEA), S Comment: Non smoker 20-69 yrs: <=3.8 ng/mL Smokers 20-69 yrs: <=5.5 ng/mL The testing method is an Electrochemilum inometric Immunoassay manufactured by [employer] and performed on the [employer] e411 /e601. Values obtained with different assay met hods or kits may be different and cannot be used interchangeably. Test results cannot be interpreted as ab solute evidence for the presence or absence of malignant disease Specimen (Source) Anatomical Collection Method Collection Time Re ceived Time Location / / Volume Laterality Blood 08/05/2015 2:26 PM SPOOLING SUPERVISOR Jerica Ellison M.D. LAB BLOOD ADD-ON Performing Organization Address City/State/ZIP Code Phon e Number POWERCHART documented in this encounter Visit Diagnoses Not on filedocumented in this encounter
--- OUTSIDE RECORDS SUMMARY | 2022-05-24 18:28 | XMS_ITS | Encounter Summary ---
:1945 Author Organization [facility] Address [address] [place] [address] Care Team Providers Name Role Phone Unavailable Primary Care Provider Unavailable Encounter Details Date Type Department Care Team Description 08/20/2015 Hospital Encounter HX [facility] Kedar Cevallos M.D. Social History Tobacco [...] documented as of this encounter Procedure Notes Shirin Goddard R.T.(R), Cady(R)(MR) - 08/20/2015 1:45 PM CST Peripheral IV Peripheral IV Entered On: 08/20/2015 14:19 MANAGER ED Performed On: 08/20/2015 13:45 MANAGER ED by SHIRIN GODDARD Peripheral IV Peripheral IV Assess/Intervention Grid Peripheral IV #1 IV Activity : Discontinue Removal : Catheter intact, Hemostasis within expected timeframe Number of Attempts : 1 Date of Insertion : 08/20/2015 MANAGER ED Discontinued Date : 08/20/2015 MANAGER ED IV Site : Antecubital Laterality : Right Catheter Size : 22 Catheter Type : Over the needle Site Condition : No complications SHIRIN GODDARD - 08/20/2015 14:18 MANAGER ED Source: [place] Document Id: [id number] MANAGER ED!14 GER ED Shirin Goddard R.T.(R), Cady(R)(MR) - 08/20/2015 12:30 PM CST Peripheral IV Peripheral IV Entered On: 08/20/2015 14:18 MANAGER ED Performed On: 08/20/2015 12:30 MANAGER ED by SHIRIN GODDARD Peripheral IV Peripheral IV Assess/Intervention Grid Peripheral IV #1 IV Activity : Start Number of Attempts : 1 Date of Insertion : 08/20/2015 MANAGER ED IV Site : Antecubital Laterality : Right Catheter Size : 22 Catheter Type : Over the needle SHIRIN GODDARD - 08/20/2015 14:18 MANAGER ED Source: [place] Document Id: [id number] MANAGER ED!11 GER ED documented in this encounter Miscellaneous Notes Miscellaneous - Conversion, Historical Provider Ser - 08/20/2015 11:59 PM MANAGER ED Coding Summary-Paper Based CODING DATE: 08/26/2015 FINAL [facility] STATUS: * Discharged to Home or Self Care PAYOR: [employer] ADMIT DX: REASON FOR VISIT DX: FINAL DX: PRINCIPAL: K86.8 Other specified diseases of pancreas SECONDARY: K86.1 Other chronic pancreatitis PROCEDURES DOCTOR NAME DATE NOTE: The code number assigned matches the documented diagnosis and / or procedure in the patient's chart. However, the narrative phrase printed from the coding software may appear abbreviated, or result in slightly different terminology. Coded By: SAMIRA MATUTE Date Saved: 08/26/2015 05:44 pm Source: [place] Document Id: [id number] documented in this encounter Plan of Treatment Not on filedocumented as of this encounter Procedures Procedure Name Priority Date/Time Associated Diagnosis Comme nts MR ABDOMEN MRCP Routine 08/20/2015 12:37 PM Resul ts for this WITHOUT AND WITH IV MANAGER ED procedur e are in CONTRAST the results section. documented in this encounter Results MR Abdomen MRCP without and with IV Contrast (08/20/2015 12:37 PM MANAGER ED) Anatomical Region Laterality Modality Abdomen N/A Magnetic Resonance Specimen (Source) Anatomical Collection Method Collection Time Re ceived Time Location / / Volume Laterality 08/20/2015 12:37 PM MANAGER ED Addenda Addendum by ProviderAnder M.D. o n 08/20/2015 12:37 PM MANAGER ED RAD^^^MA MR Cholangiogram + Abdomen w/ + w/o cont 08/20/2015 12:37:57 Addendum by ProviderAnder M.D. o n 08/20/2015 12:30 PM MANAGER ED RAD^^^MA MR Cholangiogram + Abdomen w/ + w/o cont 08/20/2015 12:30:00 Impressions 08/20/2015 3:32 PM MANAGER ED 1. Unchanged 8 x 5 mm distal pancreatic duct stone within the head of the pancreas with dilated main pancreati c duct proximal to the stone, consistent with chronic pancreatitis. Th is has been stable since the CT examination 06/20/2013. 2. No evidence for pancreatic mass. 3. No evidence for gallbladder or biliar y pathology. 4. Other incidental nonacute findings as described above, stable. 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 COMPARISON: ?08/19/[address] of t he abdomen and pelvis 06/20/2013 TECHNIQUE: ?T1 and T2 axial and niecy nal images were obtained of the upper abdomen without and with fat satur ation, without and with gadolinium. In addition heavily T2-weigh ann images were obtained for maximum intensity projection images, for MRCP. FINDINGS: MRCP: On image 32 of series 14 there is a unchanged 8 x 5 mm distal main pancreatic ductal stone in the head of the pancreas. This can also be seen on image 15 of series 13 (c oronal T2 weighted images), and axial image 28 and 29 of series 7 (a xial T2-weighted images) where the distal Main pancreatic ductal stone is seen. The gallbladder, cystic duct, intrahepatic b iliary ductal system, and extrahepatic biliary ductal system are n ondilated and absent of filling defects. Liver: No abnormal areas of right T2 sig nal are seen within the hepatic parenchyma. No abnormal areas of signal dropout are seen within the liver. No abnormal areas of c ontrast enhancement are seen within the liver. Remainder of the organs in the upper abd omen: There is pancreatic atrophy, although the normal expected ri ght T2 signal throughout the residual pancreatic parenchyma is noneth eless observed. No evidence for pancreatic mass. There is no inflamm atory changes or edema surrounding pancreas. Several subcentime ter bright T2 signal nonenhancing renal cortical simple cysts again observed. The adrenal glands, spleen and accessory spleen, and visualized small bowel and colon are unremarkable. There is no uppe r abdominal lymphadenopathy. Procedure Note Riki Perez M.D. / Provider, Leela orta M.D. - 01/19/2017 MRCP with upper abdominal MRI, without a nd with gadolinium 08/20/2015 HISTORY: 70-year-old male with chronic p ancreatitis. COMPARISON: 08/19/[address] of the ab domen and pelvis 06/20/2013 TECHNIQUE: T1 and T2 axial and coronal i mages were obtained of the upper abdomen without and with fat satur ation, without and with gadolinium. In addition heavily T2-weigh ann images were obtained for maximum intensity projection images, for MRCP. FINDINGS: MRCP: On image 32 of series 14 there is a unchanged 8 x 5 mm distal main pancreatic ductal stone in the head of the pancreas. This can also be seen on image 15 of series 13 (c oronal T2 weighted images), and axial image 28 and 29 of series 7 (a xial T2-weighted images) where the distal Main pancreatic ductal stone is seen. The gallbladder, cystic duct, intrahepatic b iliary ductal system, and extrahepatic biliary ductal system are n ondilated and absent of filling defects. Liver: No abnormal areas of right T2 sig nal are seen within the hepatic parenchyma. No abnormal areas of signal dropout are seen within the liver. No abnormal areas of c ontrast enhancement are seen within the liver. Remainder of the organs in the upper abd omen: There is pancreatic atrophy, although the normal expected ri ght T2 signal throughout the residual pancreatic parenchyma is noneth eless observed. No evidence for pancreatic mass. There is no inflamm atory changes or edema surrounding pancreas. Several subcentime ter bright T2 signal nonenhancing renal cortical simple cysts again observed. The adrenal glands, spleen and accessory spleen, and visualized small bowel and colon are unremarkable. There is no uppe r abdominal lymphadenopathy. IMPRESSION: 1. Unchanged 8 x 5 mm distal pancreatic duct stone within the head of the pancreas with dilated main pancreati c duct proximal to the stone, consistent with chronic pancreatitis. Th is has been stable since the CT examination 06/20/2013. 2. No evidence for pancreatic mass. 3. No evidence for gallbladder or biliar y pathology. 4. Other incidental nonacute findings as described above, stable. Shirin Goddard RKamilaT.(R), RKamilaTKamila(R)(MR) IMG MRI PROCEDURE S documented in this encounter Visit Diagnoses Not on filedocumented in this encounter
--- OUTSIDE RECORDS SUMMARY | 2022-05-24 18:28 | XMS_ITS | Encounter Summary ---
:1945 Author Organization [facility] Address [address] [place] [address] Care Team Providers Name Role Phone Unavailable Primary Care Provider Unavailable Encounter Details Date Type Department Care Team Description 06/30/2014 Hospital Encounter HX PAN [facility] Cathy Rosenthal M.D. Social History Tobacco Use [...] or relatives? How often do you attend restoration or More than 4 times per year 06/14/2019 gnosticism services? Do you belong to any clubs or Yes 06/14/2019 organizations such as restoration groups, unions, fraternal or athletic groups, or [...] Sign Reading Time Taken Comments Blood Pressure 90/68 06/30/2014 8:23 AM CDT Pulse 58 06/30/2014 8:23 AM CDT Temperature - - Respiratory Rate 16 06/30/2014 8:23 AM CDT Oxygen Saturation - - Inhaled Oxygen Concentration - - Weight 110 kg (241 lb 10 oz) 06/30/2014 8:23 AM CDT Height 194 cm (6' 4.38) 06/30/2014 8:23 AM CDT Body Mass Index 29.12 06/30/2014 8:23 AM CDT documented in this encounter Medications [...] encounter Progress Notes Cathy Mccoy M.D. - 06/30/2014 8:13 AM CDT [id number] CHIEF COMPLAINT/REASON FOR VISIT A 69-year-old male here for diabetic check and he complains of some numbness in his feet. HISTORY OF PRESENT ILLNESS He needs refills on his insulin and his EpiPen and his nitroglycerin. He complains of feeling gassy,but he thinks he needs a higher dose of Creon. His sugars are between 100 and 130 in the morning andin the evening. PAST MEDICAL/SURGICAL HISTORY History of acute myocardial infarction with [id number] arrest. Arteria stent. Coronary artery disease. Chronic pancreatitis. Diabetes. Gout. Hypertension. Hyperlipidemia. History of Helicobacter pylori infection. Skin cancer. Colonoscopy in 2012. Gastroscopy same time. Excision of calcaneal spur in 2006. FAMILY HISTORY Mother had brain tumor. Three brothers have had cataracts. One brother has coronary artery disease. Three brothers and a sister have diabetes. Brothers with glaucoma. Brother with kidney stones. Brother with pacemaker and Brother with strokes. SOCIAL HISTORY He is a nonsmoker. He does not drink alcohol. Gets some exercise. Drinks coffee daily. MEDICATIONS Saline nasal mist 2 sprays 4 times a day as needed. Phenylephrine/hydrochloride 10 mg 1 tab every 4 hours as needed allergies and also phenylephrine 0.5% nasal spray as needed. Pepto-Bismol as needed. Nitroglycerin 0.4 mg sublingual as needed. Metoprolol 25 mg half tab twice a day. Metformin 500 mg daily. Lisinopril 5 mg daily. Lidex 0.05% topical solution twice a day affected area. Kenalog and Orabase 0.1% mucous membrane paste 4 times a day as needed tooth pain. Indomethacin 25 mg 3 times a day as needed gout. Humalog mix 75/25, 56 units twice a day. Gemfibrozil 600 mg twice a day. Gas-X 80 mg twice a day. Fluticasone nasal spray. Fish oil 1000 mg 3 times a day. EpiPen as needed. Creon 36,000 units 3 times a day. Allopurinol 100 mg twice a day. Albuterol metered-dose inhaler. ALLERGIES ADHESIVE BANDAGES. ASPIRIN. BEE STINGS. CLINDAMYCIN. LIPITOR. PENICILLIN. SYSTEMS REVIEW GI: 11-point review of systems positive for gassy feeling as mentioned in the HPI. : He does not think he is urinating as much as before, but he is having more urine after his bowelmovements. It seems to free up some space. SKIN: He says is getting thin. NEUROLOGIC: He has numbness in his feet. Remainder of 11-point review of systems was negative. VITAL SIGNS Blood pressure 90/68, pulse 58, respirations 16, temp 35.6, weight 109.6 kg, height 194 cm. PHYSICAL EXAMINATION HEENT: Tympanic membranes are clear. Oropharynx is nonerythematous. Pupils equal and reactive to light. He does have cataracts bilaterally. NECK: Supple without lymphadenopathy, thyromegaly or bruits. CHEST: Clear to auscultation bilaterally. CARDIOVASCULAR: Regular rate and rhythm. No murmur. ABDOMEN: Soft, plus bowel sounds. Nontender. No hepatosplenomegaly. BACK: Nontender to percussion. NEUROLOGIC: DTRs are 2+/4. Strengths are 5/5. FEET: With decreased sensation, the right is worse than the left, but he did have some surgery on that foot. He does not have any calluses or bunions or ulcers. The toes and up to the mid foot are decreased in sensation. : Prostate moderately enlarged. No masses. Good tone. IMPRESSION/REPORT/PLAN 1. Diabetes. 2. Hypertension. 3. Hyperlipidemia. 4. Vaccine for influenza. PLAN: He declined diabetic education, but he did get a flu shot. We are checking microalbumin, basicmetabolic panel, hemoglobin A1c, and lipid panel. Refilled medications as needed. He is going to seeGI for gassiness. He should return as needed and in 6 months. ADMINISTRATIVE BILLING Total time spent was 45 minutes with 40 minutes in counseling and coordination of care. Cathy Mccoy M.D./pos Electronically Signed By: CATHY MCCOY MD On: 07/14/2014 09:30 PM Source: [facility] MHSDOLBEYNONRADSYS Document Id: [id number] [employer] TEACHER documented in this encounter Nursing Notes Cathy Mccoy M.D. - 06/30/2014 9:17 AM CDT Ambulatory Patient Education The following Patient Education Materials have been given to the patient: Patient Education Materials: ED/Trauma Controlling High Blood Pressure ED/Trauma Controlling High Blood Pressure High blood pressure (hypertension) is called the silent killer. This is because many people who haveit dont know it. Normal blood pressure is less than 120/80. Know your blood pressure and remember tocheck it regularly. Doing so can save your life. Here are some things you can do to help control your blood pressure. Choose heart-healthy foods ?? Select low-salt, low-fat foods. ?? Limit canned, dried, cured, packaged, and fast foods. These can contain a lot of salt. ?? Eat 8-10 servings of fruits and vegetables every day. ?? Choose lean meats, fish, or chicken. ?? Eat whole-grain pasta, brown rice, and beans. ?? Eat 2-3 servings of low-fat or fat-free dairy products ?? Ask your doctor about the DASH eating plan. This plan helps reduce blood pressure. Maintain a healthy weight ?? Ask your healthcare provider how many calories to eat a day. Then stick to that number. ?? Ask your healthcare provider what weight range is healthiest for you. If you are overweight, weight loss of only 10 lbs can help lower blood pressure. ?? Limit snacks and sweets. ?? Get regular exercise. Get up and get active ?? Choose activities you enjoy. Find ones you can do with friends or family. ?? Park farther away from building entrances. ?? Use stairs instead of the elevator. ?? When you can, walk or bike instead of driving. ?? [employer] leaves, garden, or do household repairs. ?? Be active for at least 30 minutes a day, most days of the week. Manage stress ?? Make time to relax and enjoy life. Find time to laugh. ?? Visit with family and friends, and keep up with hobbies. Limit alcohol and quit smoking ?? Men: Have no more than 2 drinks per day. ?? Women: Have no more than 1 drink per day. ?? Talk with your healthcare provider about quitting smoking. Smoking increases your risk for heart disease and stroke. Ask about local or community programs that can help. Medications If lifestyle changes arent enough, your healthcare provider may prescribe high blood pressure medicine. Take all medications as prescribed. ?? [id number] [facility], [address] [place] [address]. All rights reserved. This information is not intended as a substitute for professional medical care. Always follow your healthcare professional's instructions. This document has images extracted. Please consider using Lockr for all your patient education needs. Source: [facility] POWERCHART Document Id: [id number] Cathy Mccoy M.D. - 06/30/2014 9:08 AM CDT Diabetes Intake Diabetes Intake Entered On: 06/30/2014 9:09 CDT Performed On: 06/30/2014 9:08 CDT by CATHY MCCOY MD Diabetes Intake Foot Exam Grid Left foot exam Right foot exam Dorsalis Pedis Pulse : Normal Normal Post Tibial Pulse : Normal Normal Capillary Refill : Less than 3 seconds Less than 3 seconds 10 gm Monofilament Sensation Check : Absent Absent Comments : decreased sense no sensation CATHY MCCOY MD - 06/30/2014 9:08 CDT CATHY MCCOY MD - 06/30/2014 9:08 CDT Source: [facility] PhotoRocketCHART Document Id: [id number] [id number]!15 documented in this encounter Miscellaneous Notes Miscellaneous - Cathy Mccoy M.D. - 06/30/2014 7:47 PM CDT Normal Results Letter [address] [id number] [facility] [id number] Dear [address] [facility], Your results from the following diagnostic test(s) are below. Please follow up with us as we discussed during your visit or sooner if you have any concerns. If you have questions or concerns, please donot hesitate to call our office. Cholesterol is good and three month test for sugar is stable. Result Name Current Result Previous Result Normal Range U Protein Dip (mg/dL) NEGATIVE 06/30/2014 Negative 08/23/2013 Sodium Lvl (mmol/L) 138 06/30/2014 135 - 145 Potassium Lvl (mmol/L) 4.6 06/30/2014 3.5 - 5.1 Chloride (mmol/L) 105 06/30/2014 (H) 109 06/13/2013 98 - 107 CO2 (mmol/L) 23 06/30/2014 (L) 18 06/13/2013 22 - 29 AGAP (mmol/L) 10 06/30/2014 12 06/13/2013 7 - 15 Glucose Fasting (mg/dL) (H) 161 06/30/2014 98 06/13/2013 70 - 99 Creatinine (mg/dL) 1.0 06/30/2014 0.8 08/01/2013 0.8 - 1.3 EGFR (MDRD) (mL/min/SA) >60.0 06/30/2014 >60.0 06/22/2013 >=60.0 - EGFR (MDRD) (mL/min/SA) >60 06/30/2014 >60 06/22/2013 >=60 - BUN (mg/dL) 24 06/30/2014 16 06/13/2013 6 - 24 Calcium Lvl (mg/dL) 9.9 06/30/2014 9.3 06/13/2013 8.8 - 10.3 Cholesterol (mg/dL) 127 06/30/2014 (L) 108.0 10/01/2013 - <=199 Trig (mg/dL) 120 06/30/2014 113 10/01/2013 - <=149 HDL (mg/dL) (L) 23 06/30/2014 (L) 23 10/01/2013 >=40 - LDL Calculated (mg/dL) 80 06/30/2014 62 10/01/2013 - <=99 rdrsHgb A1c (% A1C) (H) 7.3 06/30/2014 (H) 7.3 01/22/2014 - <=5.6 Sincerely, CATHY MCCOY [address] [place] [id number] Electronic Signature Electronically Signed By: CATHY MCCOY MD On: 30 June 2014 This document has images extracted. Source: [facility] POWERCHART Document Id: [id number] Electronically signed by Conversion [facility] [employer] Operator [id number] at 02/07/2017 12:16 AM CDT Miscellaneous - Cathy Mccoy M.D. - 06/30/2014 9:18 AM CDT Ambulatory Patient Summary [place] [facility] [address] [place] [phone] Visit Information Name: [address] Number: [id number] Current Date: 06/30/2014 09:18:07 Physicians Attending Provider: CATHY MCCOY MD Primary [...] mg injectable kit) 0.3 mg, Intramuscular, once Routed to [address] [address] fluocinonide topical (Lidex 0.05% topical solution) 1 cecile, Topical, two times a day fluticasone nasal (fluticasone nasal 0.05 mg/inh spray) 2 [place](s), Nasal, once a day PLEASE USE YOU WERE SHOWN IN THE OFFICE SO TO AVOID THE MIDDLE SEPTUM gemfibrozil (gemfibrozil 600 mg oral tablet) 1 Tablet(s), Oral, two times a day indomethacin (indomethacin 25 mg oral capsule) 1 cap, Oral, three times a day as needed for Pain Take with food insulin lispro protamine-insulin lispro (Humalog Mix 75/25 subcutaneous suspension) See [id number] units bid [facility] [id number] [place] [address] lisinopril (lisinopril 5 mg oral tablet) 1 Tablet(s), Oral, once a day metFORMIN (metFORMIN 500 mg oral tablet, extended release) 1 Tablet(s), Oral, once a day metoprolol (metoprolol 25 mg oral tablet) 0.5 Tablet(s), Oral, two times a day nitroglycerin (nitroglycerin 0.4 mg sublingual tablet) 1 Tablet(s), Sublingual, as needed as needed for Chest Pain Routed to [place] [address] [address] omega-3 polyunsaturated fatty acids (Fish Oil 1000 [...] nasal (Saline Nasal Mist nasal spray) 2 Bridgeport(s), Nostrils(Both), four times a day as needed for Dry nasal passages triamcinolone topical (Kenalog in Orabase 0.1% mucous membrane paste) 1 cecile, Topical, four times a day as needed for tooth pain Stop Taking the Following Medications: Medication list as of 06-30-14 09:18 Attention: If you have any medications at [...] Electronically Signed By: CATHY MCCOY MD Signed On:30-JUN-2014 09:17:25 Your Allergies & Intolerances Substance Reaction Symptoms [...] Your Upcoming Appointments Date Time Location Provider 07/31/2014 11:00 TRUE TALAVERA/Efrain Skinner MD Attention: Contact your local Clinic if further appointment detail needed. Controlling High Blood Pressure High blood pressure (hypertension) is called the silent killer. This is because many people who haveit dont know it. Normal blood pressure is less than 120/80. Know your blood pressure and remember tocheck it regularly. Doing so can save your life. Here are some things you can do to help control your blood pressure. Choose heart-healthy foods ?? Select low-salt, low-fat foods. ?? Limit canned, dried, cured, packaged, and fast foods. These can contain a lot of salt. ?? Eat 8--10 servings of fruits and vegetables every day. ?? Choose lean meats, fish, or chicken. ?? Eat whole-grain pasta, brown rice, and beans. ?? Eat 2--3 servings of low-fat or fat-free dairy products ?? Ask your doctor about the DASH eating plan. This plan helps reduce blood pressure. Maintain a healthy weight ?? Ask your healthcare provider how many calories to eat a day. Then stick to that number. ?? Ask your healthcare provider what weight range is healthiest for you. If you are overweight, weight loss of only 10 lbs can help lower blood pressure. ?? Limit snacks and sweets. ?? Get regular exercise. Get up and get active ?? Choose activities you enjoy. Find ones you can do with friends or family. ?? Park farther away from building entrances. ?? Use stairs instead of the elevator. ?? When you can, walk or bike instead of driving. ?? [employer] leaves, garden, or do household repairs. ?? Be active for at least 30 minutes a day, most days of the week. Manage stress ?? Make time to relax and enjoy life. Find time to laugh. ?? Visit with family and friends, and keep up with hobbies. Limit alcohol and quit smoking ?? Men: Have no more than 2 drinks per day. ?? Women: Have no more than 1 drink per day. ?? Talk with your healthcare provider about quitting smoking. Smoking increases your risk for heart disease and stroke. Ask about local or community programs that can help. Medications If lifestyle changes arent enough, your healthcare provider may prescribe high blood pressure medicine. Take all medications as prescribed. ?? [id number] [facility], [address] [place] [address], [place] [address]. All rights reserved. This information is not intended as a substitute for professional medical care. Always follow your healthcare professional's instructions. Your Goals/Additional instructions: This document has images extracted. Please consider using Lockr for all your patient education needs. Source: [facility] POWERCHART Document Id: [id number] Miscellaneous - Cathy Mccoy M.D. - 06/30/2014 9:18 AM CDT Ambulatory Discharge Medication List [place] - [address] [phone] Visit Information Name: [address] Number: [id number] Visit Date: 06/30/2014 09:18:04 Attending Provider: CATHY MCCOY MD Primary Care [...] mg injectable kit) 0.3 mg, Intramuscular, once Routed to [id number] [id number] fluocinonide topical (Lidex 0.05% topical solution) 1 cecile, Topical, two times a day fluticasone nasal (fluticasone nasal 0.05 mg/inh spray) 2 [place](s), Nasal, once a day PLEASE USE YOU WERE SHOWN IN THE OFFICE SO TO AVOID THE MIDDLE SEPTUM gemfibrozil (gemfibrozil 600 mg oral tablet) 1 Tablet(s), Oral, two times a day indomethacin (indomethacin 25 mg oral capsule) 1 cap, Oral, three times a day as needed for Pain Take with food insulin lispro protamine-insulin lispro (Humalog Mix 75/25 subcutaneous suspension) See [id number] units bid Routed to [facility] [address] [place] [address] lisinopril (lisinopril 5 mg oral tablet) 1 Tablet(s), Oral, once a day metFORMIN (metFORMIN 500 mg oral tablet, extended release) 1 Tablet(s), Oral, once a day metoprolol (metoprolol 25 mg oral tablet) 0.5 Tablet(s), Oral, two times a day nitroglycerin (nitroglycerin 0.4 mg sublingual tablet) 1 Tablet(s), Sublingual, as needed as needed for Chest Pain Routed to [facility] [address] [address] omega-3 polyunsaturated fatty acids (Fish Oil 1000 [...] nasal (Saline Nasal Mist nasal spray) 2 Bridgeport(s), Nostrils(Both), four times a day as needed for Dry nasal passages triamcinolone topical (Kenalog in Orabase 0.1% mucous membrane paste) 1 cecile, Topical, four times a day as needed for tooth pain Stop Taking the Following Medications: Medication list as of 06-30-14 09:18 Attention: If you have any medications at [...] Electronically Signed By: CATHY MCCOY MD Signed On:30-JUN-2014 09:17:25 Additional Information: Yes - . Source: [facility] POWERCHART Document Id: [id number] Miscellaneous - Mckenna Kelly L.P.N. - 06/30/2014 8:23 AM CDT Adult Manager Of Environmental Services Intake/History Adult Manager Of Environmental Services Intake/History Entered On: 06/30/2014 8:27 CDT Performed On: 06/30/2014 8:23 CDT by MCKENNA KELLY LPN Intake Chief Complaint : Annual physical.Numbness in feet. Temperature Core : 35.6 DegC(Converted to: 96.1 DegF) (LOW) Peripheral Pulse Rate : 58 /min (LOW) Respiratory Rate : 16 /min Heart Rhythm : Regular Systolic Blood Pressure : 90 mmHg (LOW) Diastolic Blood Pressure : 68 mmHg NIBP Mean : 75 mmHg BP Location : Left upper extremity Blood Pressure Cuff Size : Large Height : 194 cm(Converted to: 6 ft 4 inch(es), 76 inch(es)) Actual Weight : 109.6 kg(Converted to: 241 lb 10 oz) Weight Source : Standing scale Dosing Weight Clinic : 109.6 kg Clinic BSA : 2.43 Body Mass Index : 29.12 kg/m2 MCKENNA KELLY LPN - 06/30/2014 8:23 CDT General Info Information Given By : Patient Preferred Communication Mode : Verbal Languages : Sami Is Patient Female and 13-50 no hysterectomy : No MCKENNA KELLY LPN - 06/30/2014 8:23 CDT Subjective Pain Symptoms : No MCKENNA KELLY LPN - 06/30/2014 8:23 CDT Dependent Habits Tobacco Use/Currently Using : No Exposure to Tobacco Smoke : Other: non smoker Smoking Status : Never smoker MCKENNA KELLY Rebecca [facility] - 06/30/2014 8:23 CDT Tobacco Use Grid Last Use : Never MCKENNA KELLY [facility] - 06/30/2014 8:23 CDT Caffeine Use Grid Caffeine Use : Current Type : Coffee Frequency : Daily MCKENNA KELLY Rebecca [facility] - 06/30/2014 8:23 CDT ID Screen Travel Within Last 14 Days : No MCKENNA KELLY [facility] - 06/30/2014 8:23 CDT Source: [facility] POWERCHART Document Id: [id number]!39 documented in this encounter Plan of Treatment Not on filedocumented as of this encounter Procedures Procedure Name Priority Date/Time Associated Comments Diagnosis ALBUMIN, RANDOM, U Routine 06/30/2014 10:02 AM Re sults for this CDT procedure are i n the results section. LIPID PANEL, S Routine 06/30/2014 10:00 AM Result s for this CDT procedure are i n the results section. HEMOGLOBIN A1C, B Routine 06/30/2014 10:00 AM Res ults for this CDT procedure are i n the results section. BASIC METABOLIC Routine 06/30/2014 10:00 AM Resul ts for this PANEL, S/P CDT procedure are i n the results section. documented in this encounter Results (ABNORMAL) Microalbumin, Random, Urine (06/30/2014 10:02 AM CDT) P athologist Signature Protein, Ur, NEGATIVE MGDL POWERCHART Dip HXU Albumin % 31.1 MGL POWERCHART Creatinine, 123 40 - 278 POWERCHART Random, U MGDL Comment: No established reference values for random urine samples. Albumin/Creatinine Ratio 25 (H) <=16 MGGM POWER CHART Specimen (Source) Anatomical Collection Method Collection Time Re ceived Time Location / / Volume Laterality Urine 06/30/2014 10:02 AM CDT Cathy Mccoy M.D. LAB URINE ORDERABLES Performing Organization Address City/State/ZIP Code Phon e Number POWERCHART (ABNORMAL) BMP (Basic Metabolic Panel) (06/30/2014 10:00 AM CDT) Patholo gist Method Time Signature Sodium, S 138 135 - 145 POWERCHART [facility] Potassium, S 4.6 3.5 - 5.1 POWERCHART [facility] Chloride, S 105 98 - 107 POWERCHART [facility] CO2 Total 23 22 - 29 POWERCHART [facility] Glucose, 161 (H) 70 - 99 MGDL POWERCHART Fasting, S BUN (Blood Urea 24 6 - 24 MGDL POWERCHART Nitrogen), S Creatinine 1.0 0.8 - 1.3 POWERCHART MGDL Calcium, Total, 9.9 8.8 - 10.3 POWERCHART S MGDL Anion Gap 10 7 - 15 [facility] POWERCHART HXeGFR (MDRD) [...] Time Location / / Volume Laterality Blood 06/30/2014 10:00 AM CDT Cathy Mccoy M.D. LAB BLOOD ADD-ON Performing Organization Address City/State/ZIP Code Phon e Number POWERCHART (ABNORMAL) Lipid Panel (06/30/2014 10:00 AM CDT) P athologist Signature Cholesterol, 127 <=199 MGDL POWERCHART Total Comment: The National Cholesterol Education Progr am (NCEP) has set the following guidelines for Cholesterol in adults age 18 and up: Desirable < 200 mg/dL Borderline High 200-239 mg/dL High > or = 240 mg/dL The National Cholesterol Education Progr am (NCEP) has set the following guidelines for Cholesterol in children ages 2 to 17: Desirable < 170 mg/dL Borderline High 170-199 mg/dL High > or = 200 mg/dL HX HDL 23 (L) >=40 MGDL POWERCHART Comment: The National Cholesterol Education Progr am (NCEP) has set the following guidelines for HDL in adults age 18 and up: Low < 40 mg/dL Normal 40-60 mg/dL High > 60 mg/dL The National Cholesterol Education Progr am (NCEP) has set the following guidelines for HDL in children ages 2 to 17: Low < 40 mg/dL Borderline Low 40-59 mg/dL Normal > or = 60 mg/dL Values > 60 mg/dL are considered a negat maurilio risk factor for coronary heart disease (CHD) and are considered protective. Values < 40 mg/dL correlate with increas ed risk for CHD. Triglycerides 120 <=149 MGDL POWERCHART Comment: The National Cholesterol Education Progr am [...] > or = 130 mg/dL Calculated LDL 80 <=99 MGDL POWERCHART Comment: The National Cholesterol Education Progr am (NCEP) has set the following guidelines for LDL-C in adults age 18 and up: Optimal < 100 mg/dL* Near Optimal 100-129 mg/dL Borderline High 130-159 mg/dL High 160-189 mg/dL Very High > or = 190 mg/dL *In patients with a history of heart dis ease and/or diabetes an LDL-C goal of < 70 mg/dL should be considered. The National Cholesterol Education Progr am (NCEP) has set the following guidelines for LDL-C in children ages 2 to 17: Desirable < 110 mg/dL Borderline High 110-129 mg/dL High > or = 130 mg/dL Specimen (Source) Anatomical Collection Method Collection Time Re ceived Time Location / / Volume Laterality Blood 06/30/2014 10:00 AM CDT Cathy Mccoy M.D. LAB BLOOD ADD-ON Performing Organization Address City/State/ZIP Code Phon e Number POWERCHART (ABNORMAL) Hemoglobin A1c (06/30/2014 10:00 AM CDT) P athologist Signature Hemoglobin A1c, 7.3 (H) <=5.6 A1C POWERCHART B Specimen (Source) Anatomical Collection Method Collection Time Re ceived Time Location / / Volume Laterality Blood 06/30/2014 10:00 AM CDT Cathy Mccoy M.D. LAB BLOOD ADD-ON Performing Organization Address City/State/ZIP Code Phon e Number POWERCHART documented in this encounter Visit Diagnoses Not on filedocumented in this encounter
--- OUTSIDE RECORDS SUMMARY | 2022-05-24 18:28 | XMS_ITS | Encounter Summary ---
:1945 Author Organization [facility] Address [address] [place] [address] Care Team Providers Name Role Phone Unavailable Primary Care Provider Unavailable Encounter Details Date Type Department Care Team Description 02/07/2014 Hospital Encounter [facility] [place] [place] Cathy Rosenthal M.D. Social History Tobacco Use [...] More than 4 times per year 06/14/2019 confucianism services? Do you belong to any clubs [...] Sign Reading Time Taken Comments Blood Pressure 120/60 02/07/2014 10:07 AM CDT Pulse 64 02/07/2014 10:07 AM CDT Temperature - - Respiratory Rate 20 02/07/2014 10:07 AM CDT Oxygen Saturation - - Inhaled Oxygen Concentration - - Weight 109 kg (241 lb 2.9 oz) 02/07/2014 10:07 AM CDT Height 194 cm (6' 4.38) 02/07/2014 10:07 AM CDT Body Mass Index 29.07 02/07/2014 10:07 AM CDT documented in this encounter Medications [...] encounter Progress Notes Cathy Mccoy M.D. - 02/07/2014 9:57 AM CDT [id number] CHIEF COMPLAINT/REASON FOR VISIT Has a rash. HISTORY OF PRESENT ILLNESS This 68-year-old male, was trimming around a tree, a pine tree, and he states the pollen affected him. He has pink areas on his left medial posterior aleman about 1.5 cm and has areas in bilateral groin and midaxillary right hip area, both sides of his cheek, left greater than right. He also has a blistered appearing 1 cm lesion with several blisters around it on his right thumb. He thinks that is poison kayden. The rest of it he thinks it is due to the pollen. He also says that when he is working outside his blood sugars get low. In the morning he has been tracking about 100 and in the afternoon 140. PAST MEDICAL/SURGICAL HISTORY Past medical history reviewed on EMR. SOCIAL HISTORY He is nonsmoker. Drinks coffee daily. FAMILY HISTORY Noncontributory. MEDICATIONS Reviewed and reconciled on EMR. ALLERGIES ADHESIVE BANDAGES. ASPIRIN. BEE STINGS. CLINDAMYCIN. LIPITOR. PENICILLIN. SYSTEMS REVIEW See HPI. Remainder negative. VITAL SIGNS Blood pressure 120/60, pulse 64, respirations 20, temp 36.4, weight 109.4 kg, height 194 cm. PHYSICAL EXAMINATION Description of rash is in HPI. IMPRESSION/REPORT/PLAN 1. Rash. 2. Allergic dermatitis. 3. Poison kayden. PLAN: We are going to give him a Medrol Dosepak. Told him to really watch his sugars because it probably towards the beginning would increase the blood sugar and if he is not improved, he should return. ADMINISTRATIVE BILLING Total time spent was 15 minutes, 10 minutes in counseling and coordination of care. Cathy Mccoy M.D./pos Electronically Signed By: CATHY MCCOY MD On: 03/16/2014 04:48 PM Source: [facility] [id number] Document Id: [id number] documented in this encounter Nursing Notes Cathy Mccoy M.D. - 02/07/2014 10:43 AM CDT Ambulatory Patient Education The following Patient Education Materials have been given to the patient: Patient Education Materials: Ambulatory CONTACT DERMATITIS Dermatology (Rashes) Avoiding Poison Kayden, Poison [place], and Poison Sumac Ambulatory [id number] CONTACT DERMATITIS [general] The rash that you have is a reaction to an irritant that you have come in contact with. This may be due to any of the following: plants (such as poison oak or kayden); chemicals (such as hair dyes and rinses, soaps, solvents, waxes, fingernail korean, deodorants). Also, jewelry or watchbands made of nickel can cause a reaction. The rash may itch or feel irritated. This rash is not contagious. Treatment for this problem requires avoiding further exposure to whatever caused this reaction. It also includes treating the skin with medicine to reduce irritation. HOME CARE: ?? Avoid anything that heats up your skin (hot showers/baths, direct sunlight) since this will tend to make itching worse. ?? For weeping, blistered areas apply cold compresses. (Dip a face cloth into a mixture of one pint of cold water with one packet of Domeboro Powder or Aveeno Oatmeal powder (available at drug stores).This should be done for 30 minutes three to four times a day. Keep the solution refrigerated for future use. If large areas of skin are involved, you may take a lukewarm bath with one cup of cornstarchor Aveeno Oatmeal powder added to the water. ?? For localized rash, use hydrocortisone cream (available [id number]-[id number]) for redness and irritation, unless another medicine was prescribed. For severe itching, apply an ice compress locally. You can also use benzocaine anesthetic cream or spray (available at drug and grocery stores as Lanacaine or Solarcaine). ?? Oral Benadryl (diphenhydramine) is an antihistamine available at drug and grocery stores. Unless a prescription antihistamine was given, Benadryl may be used to reduce itching if large areas of the skin are involved. Use lower doses during the daytime and higher doses at bedtime since the drug may make you sleepy. [NOTE: Do not use Benadryl if you have glaucoma or if you are a man with trouble urinating due to an enlarged prostate.] Claritin (loratadine) is an antihistamine that causes less drowsiness and is a good alternative for daytime use. ?? If your reaction is due to a plant exposure , it is important to wash all of the plant oils off of your skin and the clothes you were wearing when you contacted the plant. Use ordinary soap and water to wash from top of your head to your toes. Launder all clothes that you were wearing in hot water with ordinary laundry detergent. FOLLOW UP with your doctor or this facility as directed. GET PROMPT MEDICAL ATTENTION if any of the following occur: ?? Spreading of the rash to other parts of the body ?? Severe swelling of the face, eyelids, mouth, throat or tongue ?? Difficulty urinating due to swelling in the genital area ?? Signs of infection in the areas of broken blisters: o Spreading redness o Pus or fluid draining from the blisters o Yellow-brown crusts form over the open blisters Fever of 100.4??F (38??C) or higher, or as directed by your healthcare provider ?? [id number] [place] [address]. All rights reserved. This information is not intended as a substitute for professional medical care. Always follow your healthcare professional's instructions. Dermatology (Rashes) 62181 Avoiding Poison Kay[place], Poison [place], and Poison Sumac Poison oak, poison kayden, and poison sumac are plants that can cause skin rashes. The problem is urushiol, a sap oil contained in these plants. If youre allergic to urushiol, touching one of these plantsmay cause your skin to react. Within minutes or days, you may have a red, swollen, itchy rash. You cant stop the rash. But you can soothe the itching. Recognizing These Plants You can help prevent a poison oak, poison kayden, or poison sumac rash. Know what these plants look like. And then avoid them. They grow in the form of yefri, small plants, and large bushes. In most cases, poison oak and poison kayden have three leaves per stem. Poison sumac has from 7 to 13 leaves per stem. Watch out for these plants when you go to any outdoor area, from a friends overgrown back yard to the [facility]. Urushiol is present in these plants all year round. So always be on the lookout. What Causes a Reaction? Poison oak, poison kayden, and poison sumac thrive mainly in unmaintained outdoor areas. If you touch these plants, you may get a rash. You may also react if you touch something that came in contact with urushiol, such as a dog or cat, clothing, or equipment. But the rash caused by these plants is not contagious. Steps to Prevention When heading outdoors, take these preventive steps: ?? Avoid touching any of these plants. ?? Wear long pants and a long-sleeved shirt. ?? If youre going to a heavily wooded or brushy area, also put on gloves, a hat, and boots. ?? Apply bentoquatam 5% to all exposed areas of skin. This creates a layer of protection between your skin and any sap oil you may touch. If you can, carry water with you to rinse off any sap oil you contact. ?? [id number] [place] [id number]. All rights reserved. This information is not intended as a substitute for professional medical care. Always follow your healthcare professional's instructions. This document has images extracted. Please consider using [employer] for all your patient education needs. Source: [facility] POWERCHART Document Id: [id number] documented in this encounter Miscellaneous Notes Miscellaneous - Cathy Mccoy M.D. - 02/07/2014 10:44 AM CDT Ambulatory Patient Summary [place] - [address] [id number] Visit Information Name: SANDY CHANCEBRANT BARKER [facility] Number: [id number] Current Date: 02/07/2014 10:44:05 Physicians Attending Provider: CATHY MCCOY MD Primary Care Provider: CATHY MCCOY MD SANDY CHANCEBRANT BARKER has been given the following list [...] nasal (fluticasone nasal 0.05 mg/inh spray) 2 Houston(s), Nasal, once a day PLEASE USE YOU WERE SHOWN IN THE OFFICE SO TO AVOID THE MIDDLE SEPTUM gemfibrozil (gemfibrozil 600 mg oral tablet) 1 Tablet(s), Oral, two times a day indomethacin (indomethacin 25 mg oral capsule) 1 cap, Oral, three times a day as needed for Pain Take with food insulin lispro protamine-insulin lispro (Humalog Mix 75/25 subcutaneous suspension) See [id number] units bid lisinopril (lisinopril 5 mg oral tablet) 1 Tablet(s), Oral, once a day metFORMIN (metFORMIN 500 mg oral tablet, extended release) 1 Tablet(s), Oral, once a day methylPREDNISolone (Medrol Dosepak 4 mg oral tablet) See special instructions, Oral, as directed x 6day(s) New Routed to [address] [address] metoprolol (metoprolol 25 mg oral tablet) 0.5 [...] nasal (Saline Nasal Mist nasal spray) 2 Houston(s), Nostrils(Both), four times a day as needed for Dry nasal passages triamcinolone topical (Kenalog in Orabase 0.1% mucous membrane paste) 1 cecile, Topical, four times a day as needed for tooth pain Stop Taking the Following Medications: Medication list as of 02-07-14 10:44 Attention: If you have any medications at [...] Electronically Signed By: CATHY MCCOY MD Signed On:07-FEB-2014 10:43:20 Your Allergies & Intolerances Substance Reaction Symptoms [...] Upcoming Appointments Date Time Location Reason Provider 07/24/2014 10:30 [facility] GI/Hep Chronic pancreatitis Efrain Ellison MD Attention: Contact your local Clinic if further appointment detail needed. [id number] Avoiding Poison [place], Poison [place], and Poison Sumac Poison oak, poison kayden, and poison sumac are plants that can cause skin rashes. The problem is urushiol, a sap oil contained in these plants. If youre allergic to urushiol, touching one of these plantsmay cause your skin to react. Within minutes or days, you may have a red, swollen, itchy rash. You cant stop the rash. But you can soothe the itching. Recognizing These Plants You can help prevent a poison oak, poison kayden, or poison sumac rash. Know what these plants look like. And then avoid them. They grow in the form of yefri, small plants, and large bushes. In most cases, poison oak and poison kayden have three leaves per stem. Poison sumac has from 7 to 13 leaves per stem. Watch out for these plants when you go to any outdoor area, from a friends overgrown back yard to the wilderness. Urushiol is present in these plants all year round. So always be on the lookout. What Causes a Reaction? Poison oak, poison kayden, and poison sumac thrive mainly in unmaintained outdoor areas. If you touch these plants, you may get a rash. You may also react if you touch something that came in contact with urushiol, such as a dog or cat, clothing, or equipment. But the rash caused by these plants is not contagious. Steps to Prevention When heading outdoors, take these preventive steps: ?? Avoid touching any of these plants. ?? Wear long pants and a long-sleeved shirt. ?? If youre going to a heavily wooded or brushy area, also put on gloves, a hat, and boots. ?? Apply bentoquatam 5% to all exposed areas of skin. This creates a layer of protection between your skin and any sap oil you may touch. If you can, carry water with you to rinse off any sap oil you contact. ?? [id number] [place] [address]. All rights reserved. This information is not intended as a substitute for professional medical care. Always follow your healthcare professional's instructions. [id number] CONTACT DERMATITIS [general] The rash that you have is a reaction to an irritant that you have come in contact with. This may be due to any of the following: plants (such as poison oak or kayden); chemicals (such as hair dyes and rinses, soaps, solvents, waxes, fingernail korean, deodorants). Also, jewelry or watchbands made of nickel can cause a reaction. The rash may itch or feel irritated. This rash is not contagious. Treatment for this problem requires avoiding further exposure to whatever caused this reaction. It also includes treating the skin with medicine to reduce irritation. HOME CARE: ?? Avoid anything that heats up your skin (hot showers/baths, direct sunlight) since this will tend to make itching worse. ?? For weeping, blistered areas apply cold compresses. (Dip a face cloth into a mixture of one pint of cold water with one packet of Domeboro Powder or Aveeno Oatmeal powder (available at drug stores).This should be done for 30 minutes three to four times a day. Keep the solution refrigerated for future use. If large areas of skin are involved, you may take a lukewarm bath with one cup of cornstarchor Aveeno Oatmeal powder added to the water. ?? For localized rash, use hydrocortisone cream (available rmhi-hei-avihftk) for redness and irritation, unless another medicine was prescribed. For severe itching, apply an ice compress locally. You can also use benzocaine anesthetic cream or spray (available at drug and grocery stores as Lanacaine or Solarcaine). ?? Oral Benadryl (diphenhydramine) is an antihistamine available at drug and grocery stores. Unless a prescription antihistamine was given, Benadryl may be used to reduce itching if large areas of the skin are involved. Use lower doses during the daytime and higher doses at bedtime since the drug may make you sleepy. [NOTE: Do not use Benadryl if you have glaucoma or if you are a man with trouble urinating due to an enlarged prostate.] Claritin (loratadine) is an antihistamine that causes less drowsiness and is a good alternative for daytime use. ?? If your reaction is due to a plant exposure , it is important to wash all of the plant oils off of your skin and the clothes you were wearing when you contacted the plant. Use ordinary soap and water to wash from top of your head to your toes. Launder all clothes that you were wearing in hot water with ordinary laundry detergent. FOLLOW UP with your doctor or this facility as directed. GET PROMPT MEDICAL ATTENTION if any of the following occur: ?? Spreading of the rash to other parts of the body ?? Severe swelling of the face, eyelids, mouth, throat or tongue ?? Difficulty urinating due to swelling in the genital area ?? Signs of infection in the areas of broken blisters: o Spreading redness o Pus or fluid draining from the blisters o Yellow-brown crusts form over the open blisters Fever of 100.4??F (38??C) or higher, or as directed by your healthcare provider ?? [id number] Saul [address]uelas, [address] [place] [address], [place] [address]. All rights reserved. This information is not intended as a substitute for professional medical care. Always follow your healthcare professional's instructions. Your Goals/Additional instructions: This document has images extracted. Please consider using [employer] for all your patient education needs. Source: [facility] POWERCHART Document Id: [id number] Miscellaneous - Cathy Mccoy M.D. - 02/07/2014 10:44 AM CDT Ambulatory Discharge Medication List [place] - [address] [id number] Visit Information Name: AVE [facility]ANCE [facility] Number: [id number] Visit Date: 02/07/2014 10:44:02 Attending Provider: CATHY MCCOY MD Primary Care [...] nasal (fluticasone nasal 0.05 mg/inh spray) 2 [place](s), Nasal, once a day PLEASE USE YOU WERE SHOWN IN THE OFFICE SO TO AVOID THE MIDDLE SEPTUM gemfibrozil (gemfibrozil 600 mg oral tablet) 1 Tablet(s), Oral, two times a day indomethacin (indomethacin 25 mg oral capsule) 1 cap, Oral, three times a day as needed for Pain Take with food insulin lispro protamine-insulin lispro (Humalog Mix 75/25 subcutaneous suspension) See [id number] units bid lisinopril (lisinopril 5 mg oral tablet) 1 Tablet(s), Oral, once a day metFORMIN (metFORMIN 500 mg oral tablet, extended release) 1 Tablet(s), Oral, once a day methylPREDNISolone (Medrol Dosepak 4 mg oral tablet) See special instructions, Oral, as directed x 6day(s) New Routed to [place] [address] [address] metoprolol (metoprolol 25 mg oral tablet) 0.5 [...] nasal (Saline Nasal Mist nasal spray) 2 [place](s), Nostrils(Both), four times a day as needed for Dry nasal passages triamcinolone topical (Kenalog in Orabase 0.1% mucous membrane paste) 1 cecile, Topical, four times a day as needed for tooth pain Stop Taking the Following Medications: Medication list as of 02-07-14 10:44 Attention: If you have any medications at [...] Electronically Signed By: CATHY MCCOY MD Signed On:07-FEB-2014 10:43:20 Additional Information: Yes - . Source: [employer] Document Id: [id number] Miscellaneous - Shirin Keen Jolie Schmid - 02/07/2014 10:07 AM CDT Adult Patient Registration Rep Intake/History Adult Patient Registration Rep Intake/History Entered On: 02/07/2014 10:09 CDT Performed On: 02/07/2014 10:07 CDT by SHIRIN KEEN LPN Intake Chief Complaint : rash Temperature Core : 36.4 DegC(Converted to: 97.5 DegF) (LOW) Peripheral Pulse Rate : 64 /min Respiratory Rate : 20 /min Heart Rhythm : Regular Systolic Blood Pressure : 120 mmHg Diastolic Blood Pressure : 60 mmHg NIBP Mean : 80 mmHg BP Location : Left upper extremity Blood Pressure Cuff Size : Large Height : 194 cm(Converted to: 6 ft 4 inch(es), 76 inch(es)) Actual Weight : 109.4 kg(Converted to: 241 lb 3 oz) Dosing Weight Clinic : 109.4 kg Clinic BSA : 2.43 Body Mass Index : 29.07 kg/m2 SHIRIN KEEN LPN - 02/07/2014 10:07 CDT General Info Information Given By : Patient Preferred Communication Mode : Verbal Languages : Fijian LEONILA SHIRIN [employer] - 02/07/2014 10:07 CDT Subjective Pain Symptoms : Yes SHIRIN KEEN LPN - 02/07/2014 10:07 CDT Pain Pain Assessment Grid Pain 1 Location : Other: SHIRIN KEEN LPN - 02/07/2014 10:07 CDT Dependent Habits Tobacco Use/Currently Using : No Exposure to Tobacco Smoke : Other: non smoker Smoking Status : Never smoker SHIRIN KEEN LPN - 02/07/2014 10:07 CDT Tobacco Use Grid Last Use : Never SHIRIN KEEN LPN - 02/07/2014 10:07 CDT Caffeine Use Grid Caffeine Use : Current Type : Coffee Frequency : Daily SHIRIN KEEN LPN - 02/07/2014 10:07 CDT Source: [facility] POWERCHART Document Id: [id number]!39 documented in this encounter Plan of Treatment Not on filedocumented as of this encounter Visit Diagnoses Not on filedocumented in this encounter
--- OUTSIDE RECORDS SUMMARY | 2022-05-24 18:28 | XMS_ITS | Encounter Summary ---
:1945 Author Organization [facility] Address [address] [place] [address] Care Team Providers Name Role Phone Unavailable Primary Care Provider Unavailable Encounter Details Date Type Department Care Team Description 11/05/2014 Hospital Encounter HX [facility] Cathy Rosenthal M.D. Social History Tobacco Use [...] Sign Reading Time Taken Comments Blood Pressure 110/82 11/05/2014 2:50 PM BALANCER SCALE Pulse 60 11/05/2014 2:50 PM BALANCER SCALE Temperature - - Respiratory Rate 18 11/05/2014 2:50 PM BALANCER SCALE Oxygen Saturation - - Inhaled Oxygen Concentration - - Weight 112 kg (246 lb 4.1 oz) 11/05/2014 2:50 PM BALANCER SCALE Height 194 cm (6' 4.38) 11/05/2014 2:50 PM BALANCER SCALE Body Mass Index 29.68 11/05/2014 2:50 PM BALANCER SCALE documented in this encounter Medications at Time [...] encounter Progress Notes Cathy Mccoy M.D. - 11/05/2014 2:45 PM CST [id number] [facility] CHIEF COMPLAINT/REASON FOR VISIT He has a mole very low down on his back just to the left of his gluteal cleft that has been rubbed by his belt and appears to have partially come loose and it is very inflamed and he is wanting to haveit removed. PAST MEDICAL/SURGICAL HISTORY Past medical history reviewed on EMR. SOCIAL HISTORY He is not a smoker. His used to be a smoker. Drinks coffee daily. FAMILY HISTORY Not pertinent to his problem. MEDICATIONS Reviewed and reconciled on EMR. He asked a couple questions about Creon and I told him if he had a big snack in the afternoon, then he should take a Creon before that. 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 ALLERGIES ADHESIVE BANDAGE. ASPIRIN. BEE STINGS. CLINDAMYCIN. LIPITOR. PENICILLIN. SYSTEMS REVIEW See HPI. Remainder negative. VITAL SIGNS Blood pressure 110/82, pulse is 60, respirations 18, temp 35.9, weight 111.7 kg, height 194 cm. PHYSICAL EXAMINATION On his low back, just to the left of the top of the gluteal cleft, 0.5 cm lesion, which has an eschar on the top and halo of erythema. The area was cleansed and lidocaine with epinephrine was injected.When analgesia was adequate, we did a shave biopsy of the papule. It appears to be a normal mole with irritation, but we will be sending it for pathology, as he has had skin cancer previously. We triedto hyfrecate, but he felt electrical shock in his right axilla, so we used a silver nitrate stick and the bleeding stopped. He then had antibiotic ointment placed and dressing placed. IMPRESSION/REPORT/PLAN Irritated lesion skin lesion on the back. Plan: Told him to check and make sure it is not getting infected. Continue putting on antibiotic ointment and will contact him with pathology results. ADMINISTRATIVE BILLING Total time spent was 18 minutes, with 15 minutes in counseling and coordination of care. Also reminded him that he is due for a diabetic check in December. Cathy Mccoy M.D./pos Electronically Signed By: CATHY MCCOY MD On: 11/11/2014 05:28 PM Source: [facility] MHSDOLBEYNONRADSYS Document Id: [id number] NCER SCALE documented in this encounter Miscellaneous Notes Miscellaneous - Cathy Mccoy M.D. - 11/10/2014 8:18 PM CST From: CATHY MCCOY MD Sent: 11/10/2014 20:18:51 BALANCER SCALE gave results. monitor for regrowth. Source: [facility] POWERCHART Document Id: [id number] Electronically signed by Gricelda [facility] Harbor Boat Pilot [id number] at 02/06/2017 1:01 AM CDT Miscellaneous - Cathy Mccoy M.D. - 11/05/2014 3:16 PM CST [facility] [address] [place] [phone] Visit Information Name: [facility] Number: [id number] Current Date: 11/05/2014 15:16:04 Physicians Attending Provider: CATHY MCCOY MD Primary [...] nasal (fluticasone nasal 0.05 mg/inh spray) 2 House Springs(s), Nasal, once a day PLEASE USE YOU WERE SHOWN IN THE OFFICE SO TO AVOID THE MIDDLE SEPTUM gemfibrozil (gemfibrozil 600 mg oral tablet) 1 Tablet(s), Oral, two times a day indomethacin (indomethacin 25 mg oral capsule) 1 cap, Oral, three times a day as needed for Pain Take with food insulin lispro protamine-insulin lispro (Humalog Mix 75/25 subcutaneous suspension) See [id number] units BID Dose increase lisinopril (lisinopril 5 mg oral tablet) 1 Tablet(s), Oral, once a day LORazepam (LORazepam 1 mg oral tablet) 1 Tablet(s), Oral, three times a day as needed for Anxiety metFORMIN (metFORMIN 500 mg oral tablet, extended [...] nasal (Saline Nasal Mist nasal spray) 2 House Springs(s), Nostrils(Both), four times a day as needed for Dry nasal passages triamcinolone topical (Kenalog in Orabase 0.1% mucous membrane paste) 1 cecile, Topical, four times a day as needed for tooth pain Stop Taking the Following Medications: Medication list as of 11-05-14 15:16 Attention: If you have any medications at [...] Electronically Signed By: CATHY MCCOY MD Signed On:05-NOV-2014 15:15:45 Your Allergies & Intolerances Substance Reaction Symptoms [...] appointment detail needed. Your Goals/Additional instructions: Source: [facility] POWERCHART Document Id: [id number] NCER SCALE Miscellaneous - Cathy Mccoy M.D. - 11/05/2014 3:16 PM CST Ambulatory Discharge Medication List [place] [facility] [address] [phone] Visit Information Name: [address] [facility] Number: [id number] Visit Date: 11/05/2014 15:16:01 Attending Provider: CATHY MCCOY MD Primary Care Provider: CATHY MCCOY MD OFELIASANDYBRANT BARKER has been given the following list [...] nasal (fluticasone nasal 0.05 mg/inh spray) 2 House Springs(s), Nasal, once a day PLEASE USE YOU WERE SHOWN IN THE OFFICE SO TO AVOID THE MIDDLE SEPTUM gemfibrozil (gemfibrozil 600 mg oral tablet) 1 Tablet(s), Oral, two times a day indomethacin (indomethacin 25 mg oral capsule) 1 cap, Oral, three times a day as needed for Pain Take with food insulin lispro protamine-insulin lispro (Humalog Mix 75/25 subcutaneous suspension) See [id number] units BID Dose increase lisinopril (lisinopril 5 mg oral tablet) 1 Tablet(s), Oral, once a day LORazepam (LORazepam 1 mg oral tablet) 1 Tablet(s), Oral, three times a day as needed for Anxiety metFORMIN (metFORMIN 500 mg oral tablet, extended [...] nasal (Saline Nasal Mist nasal spray) 2 House Springs(s), Nostrils(Both), four times a day as needed for Dry nasal passages triamcinolone topical (Kenalog in Orabase 0.1% mucous membrane paste) 1 cecile, Topical, four times a day as needed for tooth pain Stop Taking the Following Medications: Medication list as of 11-05-14 15:16 Attention: If you have any medications at [...] Electronically Signed By: CATHY MCCOY MD Signed On:05-NOV-2014 15:15:45 Additional Information: Yes - . Source: [facility] POWERCHART Document Id: [id number] NCER SCALE Miscellaneous - Mckenna Kelly L.PKamilaNKamila - 11/05/2014 2:50 PM CST Adult Control Room Technician Intake/History Adult Control Room Technician Intake/History Entered On: 11/05/2014 14:53 BALANCER SCALE Performed On: 11/05/2014 14:50 BALANCER SCALE by MCKENNA KELLY LPN Intake Chief Complaint : Skin tag on rt side belt line irritating. Temperature Core : 35.9 DegC(Converted to: 96.6 DegF) (LOW) Peripheral Pulse Rate : 60 /min Respiratory Rate : 18 /min Heart Rhythm : Regular Systolic Blood Pressure : 110 mmHg Diastolic Blood Pressure : 82 mmHg NIBP Mean : 91 mmHg BP Location : Left upper extremity Height : 194 cm(Converted to: 6 ft 4 inch(es), 76 inch(es)) Actual Weight : 111.7 kg(Converted to: 246 lb 4 oz) Weight Source : Standing scale Dosing Weight Clinic : 111.7 kg Clinic BSA : 2.45 Body Mass Index : 29.68 kg/m2 MCKENNA KELLY LPN - 11/05/2014 14:50 BALANCER SCALE General Info Information Given By : Patient Preferred Communication Mode : Verbal Languages : [place] Is Patient Female and 13-50 no hysterectomy : No MCKENNA KELLY LPN - 11/05/2014 14:50 BALANCER SCALE Subjective Pain Symptoms : No MCKENNA KELLY LPN - 11/05/2014 14:50 BALANCER SCALE Dependent Habits Tobacco Use/Currently Using : No Exposure to Tobacco Smoke : Other: non smoker Smoking Status : Never smoker MCKENNA KELLY LPN - 11/05/2014 14:50 BALANCER SCALE Tobacco Use Grid Last Use : Never MCKENNA KELLY [facility] - 11/05/2014 14:50 BALANCER SCALE Caffeine Use Grid Caffeine Use : Current Type : Coffee Frequency : Daily MCKENNA KELLY [facility] - 11/05/2014 14:50 BALANCER SCALE ID Screen Travel Within Last 21 Days : No MCKENNA KELLY [facility] - 11/05/2014 14:50 BALANCER SCALE Source: [facility] POWERCHART Document Id: [id number] BALANCER SCALE!38 NCER SCALE documented in this encounter Plan of Treatment Not on filedocumented as of this encounter Procedures Procedure Name Priority Date/Time Associated Diagnosis Comme nts SURGICAL PATHOLOGY Routine 11/05/2014 11:02 AM Re sults for this BALANCER SCALE procedure are i n the results section. documented in this encounter Results Pathology Surgical Pathology (11/05/2014 11:02 AM BALANCER SCALE) Specimen (Source) Anatomical Collection Method Collection Time Re ceived Time Location / / Volume Laterality 11/05/2014 11:02 AM BALANCER SCALE Narrative [facility] - 11/07/2014 11:11 AM BALANCER SCALE [facility] in [address] [place] [id number] Patient Name: [facility] Patient ID #: [id number] Collected: 11/05/2014 Address: City/State/Zip: [address] [place] [address] ??[phone] Received: Reported: 11/06/2014 11/07/2014 Soc. Sec. #: [id number] ?? DO B/Age/Sex 1945 (Age: 69) ??M Physician(s): HORTENCIA MCCOY MD Copy To: ? [facility] [place] ??[id number] [address] [place] [address], ??[place] ??[id number] SURGICAL PATHOLOGY REPORT FINAL DIAGNOSIS: SKIN, LOW BACK, PUNCH BIOPSY: --- INTRADERMAL NEVUS, EXTENDING TO THE BASE AND LATERAL EDGES OF THE BIOPSY. tomy/11/07/2014 ARNAUD ROGERS M.D. Report electronically released. Interpretation by ARNAUD ROGERS M.D. SPECIMEN(S) RECEIVED: LOW BACK LESION GROSS DESCRIPTION: Consists of a 4 mm tissue fragment. Sect ioned. ESB, one cassette. ([id number]) DDG/TOMY/11/06/2014 MICROSCOPIC DESCRIPTION: Reviewed by Arnaud Rogers M.D.; Path ologist [facility]/11/07/2014 Cathy Mccoy M.D. LAB SURG PATH ORDERABLES Performing Organization Address City/State/ZIP Code Phon e Number [facility] documented in this encounter Visit Diagnoses Not on filedocumented in this encounter
--- OUTSIDE RECORDS SUMMARY | 2022-05-24 18:28 | XMS_ITS | Encounter Summary ---
:1945 Author Organization [facility] Address [address] [place] [address] Care Team Providers Name Role Phone Unavailable Primary Care Provider Unavailable Encounter Details Date Type Department Care Team Description 08/31/2015 Hospital Encounter [facility]X [facility] Tammy Davis M.D. Social History Tobacco Use [...] More than 4 times per year 06/14/2019 anabaptism services? Do you belong to any clubs [...] Notes Miscellaneous - Nikia Mccoy M.D. - 09/01/2015 10:47 AM CST Normal Results Letter [address] [id number] [facility] [id number] Dear [facility], I am pleased to report that your results from the following diagnostic test(s) are normal. Please follow up with us as we discussed during your visit or sooner if you have any concerns. If you have questions or concerns, please do not hesitate to call our office. Result Name Current Result Previous Result Normal Range U Albumin (mg/L) 353.0 08/31/2015 31.1 06/30/2014 U Creatinine (mg/dL) 100 08/31/2015 123 06/30/2014 40 - 278 U Alb/Creatinine Ratio (mg/gm) (H) 352 08/31/2015 (H) 25 06/30/2014 - <=16 Sodium Lvl (mmol/L) 141 08/31/2015 138 06/30/2014 135 - 145 Potassium Lvl (mmol/L) 4.5 08/31/2015 5.0 04/10/2015 3.5 - 5.1 Chloride (mmol/L) 107 08/31/2015 105 06/30/2014 98 - 107 CO2 (mmol/L) (L) 21 08/31/2015 23 06/30/2014 22 - 29 AGAP (mmol/L) 13 08/31/2015 10 06/30/2014 7 - 15 Glucose Fasting (mg/dL) (H) 185 08/31/2015 (H) 161 06/30/2014 70 - 99 Creatinine (mg/dL) 0.9 08/31/2015 1.1 08/05/2015 0.8 - 1.3 EGFR (MDRD) (mL/min/SA) >60.0 08/31/2015 >60 08/05/2015 >=60.0 - EGFR (MDRD) (mL/min/SA) >60 08/31/2015 >60 08/05/2015 >=60 - BUN (mg/dL) 23 08/31/2015 (H) 28 08/13/2014 6 - 24 Calcium Lvl (mg/dL) 9.8 08/31/2015 9.9 06/30/2014 8.8 - 10.3 AST (U/L) 33 08/31/2015 47 02/27/2015 8 - 48 Cholesterol (mg/dL) 120 08/31/2015 120 02/27/2015 - <=199 pg54Rsea (mg/dL) (H) 156 08/31/2015 122 02/27/2015 - <=149 HDL (mg/dL) (L) 24 08/31/2015 (L) 21 02/27/2015 >=40 - LDL Calculated (mg/dL) 65 08/31/2015 75 02/27/2015 - <=129 Hgb A1c (% A1C) (H) 7.1 08/31/2015 (H) 7.1 02/27/2015 - <=5.6 Sincerely, NIKIA MCCOY [address] [place] [address] [phone] Electronic Signature Electronically Signed By: NIKIA MCCOY MD On: 01 September 2015 This document has images extracted. Source: [facility] POWERCHART Document Id: [id number] Electronically signed by Conversion, [facility] Assembler Dc Field Yoke [id number] at 02/06/2017 8:59 AM CDT documented in this encounter Plan of Treatment Not on filedocumented as of this encounter Procedures Procedure Name Priority Date/Time Associated Comments Diagnosis ALBUMIN, RANDOM, U Routine 08/31/2015 9:23 Result s for this AM HOGSHEAD FILLER procedure are i n the results section. LIPID PANEL, S Routine 08/31/2015 9:17 Results fo r this AM HOGSHEAD FILLER procedure are i n the results section. ASPARTATE Routine 08/31/2015 9:17 Results for this AMINOTRANSFERASE (AST), AM HOGSHEAD FILLER proc edure are in S/P the results section. HEMOGLOBIN A1C, B Routine 08/31/2015 9:17 Results for this AM HOGSHEAD FILLER procedure are i n the results section. BASIC METABOLIC PANEL, Routine 08/31/2015 9:17 Re sults for this S/P AM HOGSHEAD FILLER procedure are i n the results section. documented in this encounter Results (ABNORMAL) Microalbumin, Random, Urine (08/31/2015 9:23 AM HOGSHEAD FILLER) P athologist Signature HXU Albumin % 353.0 MGL POWERCHART Creatinine, 100 40 - 278 POWERCHART Random, U MGDL Comment: No established reference values for random urine samples. Albumin/Creatinine Ratio 352 (H) <=16 MGGM POWER CHART Specimen (Source) Anatomical Collection Method Collection Time Re ceived Time Location / / Volume Laterality Urine 08/31/2015 9:23 AM HOGSHEAD FILLER Nikia Mccoy M.D. LAB URINE ORDERABLES Performing Organization Address City/State/ZIP Code Phon e Number POWERCHART (ABNORMAL) BMP (Basic Metabolic Panel) (08/31/2015 9:17 AM HOGSHEAD FILLER) Patholo gist Method Time Signature Sodium, S 141 135 - 145 POWERCHART MMOLL Potassium, S 4.5 3.5 - 5.1 POWERCHART MMOLL Chloride, S 107 98 - 107 POWERCHART MMOLL CO2 Total 21 (L) 22 - 29 POWERCHART MMOLL Glucose, 185 (H) 70 - 99 MGDL POWERCHART Fasting, S BUN (Blood Urea 23 6 - 24 MGDL POWERCHART Nitrogen), S Creatinine 0.9 0.8 - 1.3 POWERCHART MGDL Calcium, Total, 9.8 8.8 - 10.3 POWERCHART S MGDL Anion Gap 13 7 - 15 MMOLL POWERCHART HXeGFR (MDRD) [...] Time Location / / Volume Laterality Blood 08/31/2015 9:17 AM HOGSHEAD FILLER Nikia Mccoy M.D. LAB BLOOD ADD-ON Performing Organization Address City/State/ZIP Code Phon e Number POWERCHART AST (Aspartate Aminotransferase) (08/31/2015 9:17 AM HOGSHEAD FILLER) Patholo gist Method Time Signature Aspartate 33 8 - 48 UL POWERCHART Aminotransferase (AST), S Specimen (Source) Anatomical Collection Method Collection Time Re ceived Time Location / / Volume Laterality Blood 08/31/2015 9:17 AM HOGSHEAD FILLER Nikia Mccoy M.D. LAB BLOOD ADD-ON Performing Organization Address City/State/ZIP Code Phon e Number POWERCHART (ABNORMAL) Lipid Panel (08/31/2015 9:17 AM HOGSHEAD FILLER) P athologist Signature Cholesterol, 120 <=199 MGDL [...] Low 40-45 mg/dL Acceptable >45 mg/dL Triglycerides 156 (H) <=149 MGDL POWERCHART Comment: 2014 National Lipid [...] assessment when triglycerides are >400mg/dL. Calculated LDL 65 <=129 MGDL POWERCHART Comment: 2014 National Lipid Association [...] for FH and FDB is available anoop [facility]: FH/ADH Genetic Reflex Gonzales el (test ADHP). Acquired (non-genetic) causes of markedly increased LDL cholesterol include cholestatic liver disease due to the presence of LpX. If a genetic form of hypercholesterolemia is suspected, family studies including biochemical testing fo r lipids (total cholesterol,triglycerides, LDL cholesterol and HDL cholesterol) are recommended. ??Please contact the laboratory at or the on-line test catalog at [employer] for information about how to order these scottie ts or to speak with a genetic counselor. Further interpretation would require clinical information. Specimen (Source) Anatomical Collection Method Collection Time Re ceived Time Location / / Volume Laterality Blood 08/31/2015 9:17 AM HOGSHEAD FILLER Nikia Mccoy M.D. LAB BLOOD ADD-ON Performing Organization Address City/State/ZIP Code Phon e Number POWERCHART (ABNORMAL) Hemoglobin A1c (08/31/2015 9:17 AM HOGSHEAD FILLER) P athologist Signature Hemoglobin A1c, 7.1 (H) <=5.6 A1C POWERCHART B Specimen (Source) Anatomical Collection Method Collection Time Re ceived Time Location / / Volume Laterality Blood 08/31/2015 9:17 AM HOGSHEAD FILLER Nikia Mccoy M.D. LAB BLOOD ADD-ON Performing Organization Address City/State/ZIP Code Phon e Number POWERCHART documented in this encounter Visit Diagnoses Not on filedocumented in this encounter
--- OUTSIDE RECORDS SUMMARY | 2022-05-24 18:28 | XMS_ITS | Encounter Summary ---
:1945 Author Organization [facility] Address [address] [place] [address] Care Team Providers Name Role Phone Unavailable Primary Care Provider Unavailable Encounter Details Date Type Department Care Team Description 11/13/2013 Hospital Encounter [facility] Tammy Heard M.D. Social History Tobacco Use Types Packs/Day [...] Pressure - - Pulse - - Temperature - - Respiratory Rate - - Oxygen Saturation - - Inhaled Oxygen Concentration - - Weight - - Height 194 cm (6' 4.38) 11/13/2013 11:02 AM NUCLEAR CHEMISTRY TECHNICIAN Body Mass Index - - documented in this encounter Medications at Time of Discharge Medication Sig Dispensed Refills Start Date End Date DOCOSAHEXANOIC ACID/EPA Take 1 capsule by 0 10/03 /2013 (FISH OIL ORAL) mouth 3 (three) times [...]
--- OUTSIDE RECORDS SUMMARY | 2022-05-24 18:28 | XMS_ITS | Encounter Summary ---
:1945 Author Organization [facility] Address [address] [place] [address] Care Team Providers Name Role Phone Unavailable Primary Care Provider Unavailable Encounter Details Date Type Department Care Team Description 04/10/2015 Hospital Encounter [facility] Tammy [...] documented as of this encounter Miscellaneous Notes Amor - Nikia Mccoy M.D. - 04/13/2015 9:15 PM CDT Normal Results Letter [address] [id number] [facility] [id number] Dear AVE [facility], Your results from the following diagnostic test(s) are below. Please follow up with us as we discussed during your visit or sooner if you have any concerns. If you have questions or concerns, please donot hesitate to call our office. MuseReport This document has an image MuseReport Test Reason : EKG Blood Pressure : / mmHG Vent. Rate : 060 BPM Atrial Rate : 060 BPM P-R Int : 194 ms QRS Dur : 086 ms QT Int : 398 ms P-R-T Axes : 015 003 020 degrees QTc Int : 398 ms Normal sinus rhythm Borderline Low voltage QRS Low anterior forces No previous ECGs available Revised Report Sincerely, NIKIA MCCOY [address] [place] [id number] Electronic Signature Electronically Signed By: NIKIA MCCOY MD On: 13 April 2015 This document has images extracted. Source: [facility] POWERCHART Document Id: [id number] Electronically signed by Conversion, [facility] Commercial Insurance Underwriter [id number] at 02/05/2017 10:58 PM CDT Amor - Nikia Mccoy M.D. - 04/10/2015 2:08 PM CDT Normal Results Letter [address] [address] [facility] [id number] Dear AVE [facility], Your results from the following diagnostic test(s) are below. Please follow up with us as we discussed during your visit or sooner if you have any concerns. If you have questions or concerns, please donot hesitate to call our office. Your MCV(mean corpuscle volume- the size of your red blood cell) ishigh. This could mean you are low on Vitamin B12 or folate. Contact me if you want these labs checked. You are not anemic now, but you could get that way if these vitamins are low. Result Name Current Result Previous Result Normal Range Potassium Lvl (mmol/L) 5.0 04/10/2015 4.6 06/30/2014 3.5 - 5.1 Hgb (g/dL) 14.6 04/10/2015 13.5 - 17.5 Hct (%) 44.0 04/10/2015 38.8 - 50.0 WBC (x10(9)/L) 4.4 04/10/2015 3.5 - 10.5 RBC (x10(12)/L) 4.34 04/10/2015 4.32 - 5.72 MCV (fL) (H) 101.4 04/10/2015 81.2 - 95.1 RDW (%) 12.8 04/10/2015 11.8 - 15.6 Platelet (x10(9)/L) 200 04/10/2015 150 - 450 Neutro Absolute (10(9)/L) 2.31 04/10/2015 1.70 - 7.00 Lymph Absolute (x10(9)/L) 1.46 04/10/2015 0.90 - 2.90 Forrest Absolute (x10(9)/L) 0.53 04/10/2015 0.30 - 0.90 Eos Absolute (x10(9)/L) 0.08 04/10/2015 0.05 - 0.50 Baso Absolute (x10(9)/L) 0.01 04/10/2015 0.00 - 0.30 Differential? Auto 04/10/2015 Sincerely, NIKIA MCCOY [address] [place] [id number] Electronic Signature Electronically Signed By: NIKIA MCCOY MD On: 10 April 2015 This document has images extracted. Source: [facility] POWERCHART Document Id: [id number] Electronically signed by Conversion, [facility] Commercial Insurance Underwriter [id number] at 02/05/2017 10:58 PM CDT documented in this encounter Plan of Treatment Not on filedocumented as of this encounter Procedures Procedure Name Priority Date/Time Associated Diagnosis Comme nts ECG Routine 04/10/2015 10:45 AM Results for this CDT procedure are i n the results section. AUTOMATED Routine 04/10/2015 10:45 AM Results for this DIFFERENTIAL, B CDT procedure ar e in the results section. CBC WITH Routine 04/10/2015 10:45 AM Results for this DIFFERENTIAL, B CDT procedure ar e in the results section. POTASSIUM, S/P Routine 04/10/2015 10:45 AM Result s for this CDT procedure are i n the results section. documented in this encounter Results ECG 12 Lead (04/10/2015 10:45 AM CDT) Specimen (Source) Anatomical Collection Method Collection Time Re ceived Time Location / / Volume Laterality 04/10/2015 10:45 AM CDT [facility] - 04/10/2015 10:45 AM CDT Test Reason : EKG Blood Pressure : / mmHG Vent. Rate : 060 BPM ? Atrial Rate : 060 BPM ?? P-R Int : 194 ms ?QRS D ur : 086 ms ?QT Int : 398 ms ? P-R-T Axe s : 015 003 020 degrees ?? QTc Int : 398 ms Normal sinus rhythm Borderline Low voltage QRS Low anterior forces No previous ECGs available Revised Report ?? Referred By: NIKIA MCCOY ? Confirmed By:PETR CONTRERAS JR MD Procedure Note Provider, Junior Worthington - 01/27/2017F ormatting of this note might be different from the original. Test Reason : EKG Blood Pressure : / mmHG Vent. Rate : 060 BPM Atrial Rate : 060 B PM P-R Int : 194 ms QRS Dur : 086 ms QT Int : 398 ms P-R-T Axes : 015 003 02 0 degrees QTc Int : 398 ms Normal sinus rhythm Borderline Low voltage QRS Low anterior forces No previous ECGs available Revised Report Referred By: NIKIA MCCOY Confirm ed By:PETR CONTRERAS JR MD Petr Contreras Jr., M.D. ECG ORDERABLES Performing Organization Address City/[facility]/ZIP Code Phon e Number [facility] [address] [place] [id number] Automated Differential (04/10/2015 10:45 AM CDT) P athologist Signature Absolute 2.31 1.70 - POWERCHART Neutrophils 7.00 109L Lymphocytes 1.46 0.90 - POWERCHART 2.90 X109L Monocytes 0.53 0.30 - POWERCHART 0.90 X109L Eosinophils 0.08 0.05 - POWERCHART 0.50 X109L Absolute 0.01 0.00 - POWERCHART Basophil 0.30 X109L Specimen Anatomical Collection Method Collection Time Receive d Time (Source) Location / / Volume Laterality Blood 04/10/2015 10:45 04/10/2015 AM CDT 10:45 AM CDT Nikia Mccoy M.D. LAB BLOOD ADD-ON Performing Organization Address City/[facility] Code Phon e Number POWERCHART (ABNORMAL) CBC with Differential (04/10/2015 10:45 AM CDT) Patholo gist Method Time Signature Leukocytes 4.4 3.5 - POWERCHART 10.5 X109L Erythrocytes 4.34 4.32 - POWERCHART 5.72 D3189H Hemoglobin 14.6 13.5 - POWERCHART 17.5 GDL Hematocrit 44.0 38.8 - POWERCHART 50.0 MCV 101.4 (H) 81.2 - POWERCHART 95.1 FL HX RDW 12.8 11.8 - POWERCHART 15.6 Platelet Count 200 150 - 450 POWERCHART X109L HXDifferential? Auto POWERCHART Specimen (Source) Anatomical Collection Method Collection Time Re ceived Time Location / / Volume Laterality Blood 04/10/2015 10:45 AM CDT Nikia Mccoy M.D. LAB BLOOD ADD-ON Performing Organization Address [facility] Phon e Number POWERCHART Potassium (04/10/2015 10:45 AM CDT) P athologist Signature Potassium, S 5.0 3.5 - 5.1 POWERCHART MMOLL Specimen (Source) Anatomical Collection Method Collection Time Re ceived Time Location / / Volume Laterality Blood 04/10/2015 10:45 AM CDT Nikia Mccoy M.D. LAB BLOOD ADD-ON Performing Organization Address City/State/ZIP Code Phon e Number POWERCHART documented in this encounter Visit Diagnoses Not on filedocumented in this encounter
--- OUTSIDE RECORDS SUMMARY | 2022-05-24 18:28 | XMS_ITS | Encounter Summary ---
:1945 Author Organization [facility] Address [address] [place] [address] Care Team Providers Name Role Phone Unavailable Primary Care Provider Unavailable Encounter Details Date Type Department Care Team Description 08/13/2014 Hospital Encounter HX [facility] Kedar Ellison M.D. Social History Tobacco Use Types Packs/Day [...] Procedure Name Priority Date/Time Associated Comments Diagnosis BUN (BLOOD UREA Routine 08/13/2014 10:40 AM Resul ts for this NITROGEN), S/P [facility] procedure are in the results section. CREATININE WITH Routine 08/13/2014 10:40 AM Resul ts for this EGFR, S/P COT[facility]ER procedure are i n the results section. documented in this encounter Results (ABNORMAL) BUN (Blood Urea Nitrogen) (08/13/2014 10:40 AM COT[facility] PULLER) P athologist Signature BUN (Blood Urea 28 (H) 6 - 24 POWERCHART Nitrogen), S MGDL Specimen (Source) Anatomical Collection Method Collection Time Re ceived Time Location / / Volume Laterality Blood 08/13/2014 10:40 AM [facility] Kedar Ellison M.D. LAB BLOOD ADD-ON Performing Organization Address City/State/ZIP Code Phon e Number POWERCHART Creatinine with eGFR (08/13/2014 10:40 AM COT[facility]ER) P athologist Signature Creatinine 1.0 0.8 - 1.3 POWERCHART MGDL HXeGFR (MDRD) >60.0 >=60.0 POWERCHART MLMINSA Comment: [...] Time Location / / Volume Laterality Blood 08/13/2014 10:40 AM [facility] Kedar Ellison M.D. LAB BLOOD ADD-ON Performing Organization Address City/State/ZIP Code Phon e Number POWERCHART documented in this encounter Visit Diagnoses Not on filedocumented in this encounter
--- OUTSIDE RECORDS SUMMARY | 2022-05-24 18:28 | XMS_ITS | Encounter Summary ---
:1945 Author Organization [facility] Address [address] [place] [address] Care Team Providers Name Role Phone Unavailable Primary Care Provider Unavailable Encounter Details Date Type Department Care Team Description 07/13/2015 Hospital Encounter [facility] Temo Gomez M.D. Social History Tobacco Use Types Packs/Day [...] Sign Reading Time Taken Comments Blood Pressure 110/66 07/13/2015 2:42 PM FIELD CROP FARMER Pulse 76 07/13/2015 2:42 PM FIELD CR[employer] F[employer]ER Temperature - - Respiratory Rate 18 07/13/2015 2:42 PM FIELD CR[employer] FARMER Oxygen Saturation - - Inhaled Oxygen Concentration - - Weight 110 kg (243 lb 2.7 oz) 07/13/2015 2:42 PM FIELD [employer]ER Height 194 cm (6' 4.38) 07/13/2015 2:42 PM FIELD [employer]ER Body Mass Index 29.31 07/13/2015 2:42 PM FIELD CR[employer] FARMER documented in this encounter Medications at Time [...] documented as of this encounter Progress Notes Dayna Joseph M.D. - 07/13/2015 2:08 PM CST [id number] HISTORY OF PRESENT ILLNESS Ave is a 70-year-old male who comes in today because of right foot pain. He says he was lifting something heavy and carrying it down the stairs when he felt something pull in the dorsum of his right foot. It is somewhat painful to walk especially down stairs. Does not noticed any redness or swelling. ALLERGIES ADHESIVE TAPE. ASPIRIN. BEE STINGS. CLINDAMYCIN. LIPITOR. PENICILLIN. MEDICATIONS Epinephrine as needed. Nitroglycerin sublingually as needed. Lidex cream twice a day. Pancrelipase 1 capsule 3 times a day. Allopurinol 100 mg twice a day. Metoprolol 12.5 mg twice a day. Albuterol 2 puffs 4 times a day. Fluticasone 2 sprays each nostril daily. Indomethacin 25 mg 3 times a day as needed. Lisinopril 5 mg daily. Metformin 500 mg daily. Gemfibrozil 600 mg twice a day. Insulin 66 units in the morning, 68 units at night. Triamcinolone topically 4 times a day. VITAL SIGNS Weight 110.3 kilos. Height 194 cm. Temp 37.1 Celsius, pulse 78, respirations 18, blood pressure 110/66. PHYSICAL EXAMINATION Range of motion of the foot is normal, however, when he extends the foot he gets pain across the dorsum of the foot, whereas if you extend his toes he gets pain in the dorsum of the foot. There is no swelling or redness. There is no tenderness to palpation. IMPRESSION/REPORT/PLAN Foot pain, probably tendon strain. PLAN: Heat, rest, anti-inflammatories advised. Be sure to recheck if not better. Dayna Joseph M.D./pos Electronically Signed By: DAYNA JOSEPH MD On: 07/14/2015 12:33 PM Source: [facility] MHSDOLBEYNONRADSYS Document Id: [id number] D CROP FARMER documented in this encounter Miscellaneous Notes Miscellaneous - Dayna Joseph M.D. - 07/13/2015 2:56 PM CST Ambulatory Patient Summary [facility] [address] [place] [id number] Visit Information Name: [address] [facility] Number: [id number] Current Date: 07/13/2015 14:56:25 Physicians Attending Provider: DAYNA JOSEPH MD Primary Care Provider: CATHY SELBY MD AVE [facility] has been given the [...] nasal (fluticasone nasal 0.05 mg/inh spray) 2 Avalon(s), Nasal, once a day gemfibrozil (gemfibrozil 600 mg oral tablet) 1 Tablet(s), Oral, two times a day indomethacin (indomethacin 25 mg oral capsule) 1 cap, Oral, three times a day as needed for Pain Take with food insulin lispro protamine-insulin lispro (Humalog Mix 75/25 subcutaneous suspension) See [id number] am and 68 pm Dose increase lisinopril (lisinopril 5 mg oral [...] nasal (Saline Nasal Mist nasal spray) 2 Avalon(s), Nostrils(Both), four times a day as needed for Dry nasal passages triamcinolone topical (Kenalog in Orabase 0.1% mucous membrane paste) 1 cecile, Topical, four times a day as needed for tooth pain Stop Taking the Following Medications: Medication list as of 07-13-15 14:56 Attention: If you have any medications at home that are not on this list, DO NOT take them until youcontact your provider for clarification. Give a copy of your medication list to your primary care provider. Update your medication list any time medications or doses are changed and carry your medication list at all times in case of emergency. Electronically Signed By: DAYNA JOSEPH MD Signed On:13-JUL-2015 14:56:07 Your Allergies & Intolerances Substance Reaction Symptoms [...] Appointments Date Time Location Provider 08/05/2015 12:45 [facility] GI/Hep Efrain Ellison MD 08/31/2015 08:00 [facility] 09/01/2015 09:45 [facility] Cathy Payton MD Attention: Contact your local Clinic if [...] online form. Youll be asked for your [facility] number which you can find at the top of this document. Your Goals/Additional instructions: Source: [facility] POWERCHART Document Id: [id number] D CROP FARMER Miscellaneous - Dayna Joseph M.D. - 07/13/2015 2:56 PM CST Ambulatory Discharge Medication List [place] [facility] [address] [phone] Visit Information Name: A[address] Number: [id number] Visit Date: 07/13/2015 14:56:22 Attending Provider: DAYNA JOSEPH MD Primary Care Provider: CATHY SELBY MD [address] [place] has been given the [...] nasal (fluticasone nasal 0.05 mg/inh spray) 2 Avalon(s), Nasal, once a day gemfibrozil (gemfibrozil 600 mg oral tablet) 1 Tablet(s), Oral, two times a day indomethacin (indomethacin 25 mg oral capsule) 1 cap, Oral, three times a day as needed for Pain Take with food insulin lispro protamine-insulin lispro (Humalog Mix 75/25 subcutaneous suspension) See [id number] am and 68 pm Dose increase lisinopril (lisinopril 5 mg oral [...] nasal (Saline Nasal Mist nasal spray) 2 Avalon(s), Nostrils(Both), four times a day as needed for Dry nasal passages triamcinolone topical (Kenalog in Orabase 0.1% mucous membrane paste) 1 cecile, Topical, four times a day as needed for tooth pain Stop Taking the Following Medications: Medication list as of 07-13-15 14:56 Attention: If you have any medications at home that are not on this list, DO NOT take them until youcontact your provider for clarification. Give a copy of your medication list to your primary care provider. Update your medication list any time medications or doses are changed and carry your medication list at all times in case of emergency. Electronically Signed By: DAYNA JOSEPH MD Signed On:13-JUL-2015 14:56:07 Additional Information: Source: [facility] POWERCHART Document Id: [id number] D CROP FARMER Miscellaneous - Mkcenna Kelly L.P.NKamila - 07/13/2015 2:42 PM CST Adult Associate Artistic Director Intake/History Adult Associate Artistic Director Intake/History Entered On: 07/13/2015 14:45 [employer]ELD [employer] Performed On: 07/13/2015 14:42 FIELD CR[employer] F[employer]ER by MCKENNA KELLY LPN Intake Chief Complaint : Rt foot pain injured foot 07/12/15 going down stairs. Temperature Core : 37.1 DegC(Converted to: 98.8 DegF) Peripheral Pulse Rate : 76 /min Respiratory Rate : 18 /min Heart Rhythm : Regular Systolic Blood Pressure : 110 mmHg Diastolic Blood Pressure : 66 mmHg NIBP Mean : 81 mmHg BP Location : Left upper extremity Height : 194 cm(Converted to: 6 ft 4 inch(es), 76 inch(es)) Actual Weight : 110.3 kg(Converted to: 243 lb 3 oz) Weight Source : Standing scale Dosing Weight Clinic : 110.3 kg Clinic BSA : 2.44 Body Mass Index : 29.31 kg/m2 MCKENNA KELLY LPN - 07/13/2015 14:42 [employer]ELD [employer] General Info Information Given By : Patient Preferred Communication Mode : Verbal Languages : Luxembourgish Is Patient Female and 13-50 no hysterectomy : No MCKENNA KELLY LPN - 07/13/2015 14:42 [employer] Subjective Pain Symptoms : Yes MCKENNA KELLY LPN - 07/13/2015 14:42 FI[employer] Pain Scale Pain Scale Verbal 0-10 : Open MCKENNA KELLY LPN - 07/13/2015 14:42 FI[employer]ER Pain Pain Assessment Grid Pain 1 Location : Foot Laterality : Right Intensity : 4 MCKENNA KELLY LPN - 07/13/2015 14:42 FIELD [employer]ER Dependent Habits Tobacco Use/Currently Using : No Exposure to Tobacco Smoke : Other: non smoker Smoking Status : Never smoker MCKENNA KELLY LPN - 07/13/2015 14:42 FI[employer] Caffeine Use Grid Caffeine Use : Current Type : Coffee Frequency : Daily MCKENNA KELLY LPN - 07/13/2015 14:42 FIELD CROP F[employer]ER [facility] Document Id: [id number] FIELD CROP FARMER!41 D CROP FARMER documented in this encounter Plan of Treatment Not on filedocumented as of this encounter Visit Diagnoses Not on filedocumented in this encounter
--- OUTSIDE RECORDS SUMMARY | 2022-05-24 18:28 | XMS_ITS | Encounter Summary ---
:1945 Author Organization [facility] Address [address] [place] [address] Care Team Providers Name Role Phone Unavailable Primary Care Provider Unavailable Encounter Details Date Type Department Care Team Description 09/01/2015 Hospital Encounter HX [facility] Cathy Rosenthal M.D. Social History [...] More than 4 times per year 06/14/2019 sikh services? Do you belong to any clubs [...] Sign Reading Time Taken Comments Blood Pressure 118/70 09/01/2015 10:05 AM METAL MIXER Pulse 68 09/01/2015 10:05 AM METAL MIXER Temperature - - Respiratory Rate 20 09/01/2015 10:05 AM METAL MIXER Oxygen Saturation - - Inhaled Oxygen Concentration - - Weight 110 kg (241 lb 6.5 oz) 09/01/2015 10:05 AM METAL MIXER Height 174 cm (5' 8.5) 09/01/2015 10:05 AM METAL MIXER Body Mass Index 36.17 09/01/2015 10:05 AM METAL MIXER documented in this encounter Medications at Time [...] encounter Progress Notes Cathy Mccoy M.D. - 09/01/2015 9:52 AM CST [id number] CHIEF COMPLAINT/REASON FOR VISIT A 70-year-old male here for diabetic check. HISTORY OF PRESENT ILLNESS We talked to him about medical therapy management, actually pharmacy discussing making changes on his meds. He deferred that. He says he only takes 5 meds regularly. He also did not want diabetic education. He has had his labs checked already and we discussed them. Of significance is his microalbumin,which has increased a lot up to 353, and previously it was 30. We are going to recheck that in 3 months and if still very large, consider nephrology consult. He said his blood sugars were good in the 85 to 90 range in the morning, 100 in the evening until he got an upper respiratory infection and theywere around 130 in the morning and 300 in the evening. He increased his insulin by himself. He was on 66 in the morning and 68 in the p.m. and he has raised both to 70. PAST MEDICAL/SURGICAL HISTORY PAST MEDICAL HISTORY: Acute myocardial infarction with yfn-nj-ziarzefw cardiac arrest. He had a stent placed. He has also had chronic pancreatitis, likely due to that heart attack. Diabetes type 2. Gout. Hypertension. Hyperlipidemia. Infection with H. pylori. Skin cancer. Had a colonoscopy and gastroscopy in July 2013. Colonoscopy 2007. Excision of calcaneal spur 2006. FAMILY HISTORY Mother had a brain tumor. Three brothers had cataracts. Four brothers and a sister have diabetes. Sister has GERD. Brother with glaucoma. Brother with kidney stones. Brother with pacemaker and brother with stroke. He is from a large family. SOCIAL HISTORY He has never smoked. Drinks coffee daily. 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 MEDICATIONS Albuterol as needed. Allopurinol 100 mg 2 times a day. Creon 36,000 units 2 tabs 3 times a day with meals. EpiPen as needed. Fish oil 1000 mg 3 times a day . Flonase 2 sprays each naris daily. Gas-X as needed. Gemfibrozil 600 mg twice a day. Humalog 75/25. As mentioned, he has gone up to 70 mg in the a.m. and the p.m. Indomethacin 25 mg as needed. Kenalog Orabase 0.1% mucous membrane paste topical 4 times a day for tooth pain. Lidex 0.05% topical solution twice a day as needed. Lisinopril 5 mg daily. Lorazepam 1 mg as needed, anxiety. Lubricating topical gel twice a day as needed. Metformin 500 mg extended release 1 tab daily. Metoprolol 25 mg half tab twice a day. Nitroglycerin as needed. Pepto-Bismol as needed. Phenylephrine nasal spray as needed. Saline nasal spray as needed. ALLERGIES ADHESIVE BANDAGES. ASPIRIN. BEE STINGS for which he needs an EpiPen. CLINDAMYCIN. LIPITOR. PENICILLIN. SYSTEMS REVIEW An 11-point review of systems positive for cough for about a month and a half, but has now improved since he has gotten over his upper respiratory infection. He was having a problem with walking and that has improved since he increased use of the cream for cracks in his heels, does not have them anymore. Remainder of the review of systems negative. VITAL SIGNS Blood pressure 118/70, pulse 68, respirations 20, temp 36.5, weight 109.5 kg. Height 174 cm. PHYSICAL EXAMINATION CHEST: Clear to auscultation bilaterally. CARDIOVASCULAR: Regular rate and rhythm. No murmur. EXTREMITIES: Without edema. IMPRESSION/REPORT/PLAN 1. Diabetes. 2. Proteinuria. PLAN: As mentioned, we are going to recheck his urine protein in 3 months. We may need to get a 24-hour urine protein and nephrology consult. We are going to have him talk to dietitian to see if that can help control his diabetes better. He should return in 3 months and as needed. ADMINISTRATIVE BILLING Total time spent was 30 minutes, with 26 minutes in counseling, coordination of care. Cathy Mccoy M.D./pos Electronically Signed By: CATHY MCCOY MD On: 09/12/2015 08:56 PM Source: [facility] [email or web address] Document Id: [id number] L MIXER documented in this encounter Nursing Notes Cathy Mccoy M.D. - 09/01/2015 11:07 AM CST Ambulatory Patient Education The following Patient Education Materials have been given to the patient: Patient Education Materials: LabTest InfoSheets 24-Hour Urine Protein LabTest InfoSheets 24-Hour Urine Protein Does this test have other names? 24-hour albumin test, proteinuria test What is this test? This test measures the amount of protein in your urine. Healthy kidneys usually filter protein out of the blood, absorb the protein, and then send it back into the blood while waste material is passed out of your body as urine. But when your kidneys aren't working the way they should, protein may pass into your urine. Protein in your urine is a condition called proteinuria, albuminuria, or microalbuminuria. Many different chronic diseases, including kidney disease and diabetes, can cause protein in your urine. During , protein in your urine can mean a very dangerous condition called preeclampsia,or extremely high blood pressure. This test may be ordered after a dipstick urine protein test, which requires only one urine sample that's collected at your doctor's office. Why do I need this test? If you are , you may have this test as a part of routine care to screen for preeclampsia. You may also have this test if your doctor suspects that you have protein in your urine. Proteinuriamay not cause symptoms in the early stage. But as kidney function worsens, you may notice these symptoms: ?? Swollen face ?? Swelling in your hands or feet ?? Foamy urine ?? Higher level of blood creatinine You may also need this test if you: ?? Are diabetic ?? Have high blood pressure ?? Have a family member who has chronic kidney disease ?? Are at risk for kidney disease What other tests might I have along with this test? Your doctor may also order a urine zeodqll-pz-cegtcumkbg ratio test, which measures the ratio of protein to waste in your urine. Your doctor may also order an ultrasound of your kidneys and blood tests, such as antinuclear antibody or complement, to check for conditions that cause kidney problems. What do my test results mean? Many things may affect your lab test results. These include the method each lab uses to do the test.Even if your test results are different from the normal value, you may not have a problem. To learn what the results mean for you, talk with your health care provider. Results are given in milligrams (mg). When you are at rest, a normal test result is 50 to 80 mg within a 24-hour period. During exercise, a normal level is less than 250 mg within a 24-hour period. How is this test done? This test requires a 24-hour urine sample. For this type of urine sample, you must collect all the urine you make in 24 hours. Empty your bladder completely first thing in the morning without collecting it and note the time. Then collect your urine every time you go to the bathroom for the next 24 hours. Does this test pose any risks? This test poses no known risks. What might affect my test results? Many different medications may affect your test results, including: ?? Antibiotics ?? Vitamin C supplements ?? Certain drugs used to treat Parkinson's disease Having a fever or exercising strenuously just before the test may also affect your result. Collecting too much urine or not enough urine may affect your result. How do I get ready for this test? You may need to skip exercising for a certain time before the test. Let your doctor know if you havea fever or have been ill recently. Your doctor will tell you if you should not take certain medications on the day of the test. In addition, be sure your doctor knows about all medicines, herbs, vitamins, and supplements you are taking.This includes medicines that don't need a prescription and any illicit drugs you may use. ?? [id number] Saul Ruelas, [address] [place] [address]. All rights reserved. This information is not intended as a substitute for professional medical care. Always follow your healthcare professional's instructions. Source: [facility] [email or web address] Document Id: [id number] L MIXER documented in this encounter Miscellaneous Notes Miscellaneous - Morris Thakkar - 09/01/2015 1:37 PM CST MRI Document Contains Addenda Addendum by JERICA MESSINA MD on 03 September 2015 13:42:56 METAL MIXER From: JERICA MESSINA MD To: MORRIS THAKKAR LPN; Sent: 09/03/2015 13:42:56 METAL MIXER Subject: RE: MRI Called. MRI reviewed. From: MORRIS THAKKAR LPN To: JERICA MESSINA MD; Sent: 09/01/2015 13:37:50 METAL MIXER Subject: MRI pt called stating he had a MRI done on 08/20. pt is wanting a call back to discuss results. Thank you. Source: [facility] [email or web address] Document Id: [id number] Electronically signed by Gricelda [facility] Technical Inspector [id number] at 02/06/2017 8:59 AM CDT Miscellaneous - Cathy Mccoy M.D. - 09/01/2015 11:08 AM CST Ambulatory Patient Summary [place] [facility] [address] [place] [id number] Visit Information Name: [facility] Number: [id number] Current Date: 09/01/2015 11:08:07 Physicians Attending Provider: CATHY MCCOY MD Primary [...] nasal (fluticasone nasal 0.05 mg/inh spray) 2 Glencliff(s), Nasal, once a day gemfibrozil (gemfibrozil 600 mg oral tablet) 1 Tablet(s), Oral, two times a day Routed to [address] [address] indomethacin (indomethacin 25 mg oral capsule) 1 cap, Oral, three times a day as needed for Pain Take with food insulin lispro protamine-insulin lispro (Humalog Mix 75/25 subcutaneous suspension) See [id number] am and 70 pm [facility] [address] lisinopril (lisinopril 5 mg oral tablet) 1 Tablet(s), Oral, once a day Routed to [address] [place] [address] LORazepam (LORazepam 1 mg oral tablet) 1 Tablet(s), Oral, three times a day as needed for Anxiety metFORMIN (metFORMIN 500 mg oral tablet, extended release) 1 Tablet(s), Oral, once a day Routed to [address] [place] [address] metoprolol (metoprolol 25 mg oral tablet) 0.5 Tablet(s), Oral, two times a day Routed to [address] [place] [address] nitroglycerin (nitroglycerin 0.4 mg sublingual tablet) 1 [...] nasal (Saline Nasal Mist nasal spray) 2 Glencliff(s), Nostrils(Both), four times a day as needed for Dry nasal passages triamcinolone topical (Kenalog in Orabase 0.1% mucous membrane paste) 1 cecile, Topical, four times a day as needed for tooth pain Stop Taking the Following Medications: Medication list as of 09-01-15 11:08 Attention: If you have any medications at [...] Electronically Signed By: CATHY MCCOY MD Signed On:01-SEP-2015 11:07:25 Your Allergies & Intolerances Substance Reaction Symptoms [...] Date Time Location Provider 08/09/2016 12:45 TRUE TALAVERA/Thiago Skinner MD Attention: Contact your local Clinic if further appointment detail needed. 24-Hour Urine Protein Does this test have other names? 24-hour albumin test, proteinuria test What is this test? This test measures the amount of protein in your urine. Healthy kidneys usually filter protein out of the blood, absorb the protein, and then send it back into the blood while waste material is passed out of your body as urine. But when your kidneys aren't working the way they should, protein may pass into your urine. Protein in your urine is a condition called proteinuria, albuminuria, or microalbuminuria. Many different chronic diseases, including kidney disease and diabetes, can cause protein in your urine. During , protein in your urine can mean a very dangerous condition called preeclampsia,or extremely high blood pressure. This test may be ordered after a dipstick urine protein test, which requires only one urine sample that's collected at your doctor's office. Why do I need this test? If you are , you may have this test as a part of routine care to screen for preeclampsia. You may also have this test if your doctor suspects that you have protein in your urine. Proteinuriamay not cause symptoms in the early stage. But as kidney function worsens, you may notice these symptoms: ?? Swollen face ?? Swelling in your hands or feet ?? Foamy urine ?? Higher level of blood creatinine You may also need this test if you: ?? Are diabetic ?? Have high blood pressure ?? Have a family member who has chronic kidney disease ?? Are at risk for kidney disease What other tests might I have along with this test? Your doctor may also order a urine ojtnstd-td-thnovjvowg ratio test, which measures the ratio of protein to waste in your urine. Your doctor may also order an ultrasound of your kidneys and blood tests, such as antinuclear antibody or complement, to check for conditions that cause kidney problems. What do my test results mean? Many things may affect your lab test results. These include the method each lab uses to do the test.Even if your test results are different from the normal value, you may not have a problem. To learn what the results mean for you, talk with your health care provider. Results are given in milligrams (mg). When you are at rest, a normal test result is 50 to 80 mg within a 24-hour period. During exercise, a normal level is less than 250 mg within a 24-hour period. How is this test done? This test requires a 24-hour urine sample. For this type of urine sample, you must collect all the urine you make in 24 hours. Empty your bladder completely first thing in the morning without collecting it and note the time. Then collect your urine every time you go to the bathroom for the next 24 hours. Does this test pose any risks? This test poses no known risks. What might affect my test results? Many different medications may affect your test results, including: ?? Antibiotics ?? Vitamin C supplements ?? Certain drugs used to treat Parkinson's disease Having a fever or exercising strenuously just before the test may also affect your result. Collecting too much urine or not enough urine may affect your result. How do I get ready for this test? You may need to skip exercising for a certain time before the test. Let your doctor know if you havea fever or have been ill recently. Your doctor will tell you if you should not take certain medications on the day of the test. In addition, be sure your doctor knows about all medicines, herbs, vitamins, and supplements you are taking.This includes medicines that don't need a prescription and any illicit drugs you may use. ?? [phone] Saul Ruelas, [address] [place] [address], [place] [address]. All rights reserved. This information is not [...] if you dont have one. Go to [email or web address] and click on Create Your Account. Then, follow the directions to complete the online form. Youll be asked for your [facility] number which you can find at the top of this document. Your Goals/Additional instructions: Source: [facility] POWERCHART Document Id: [id number] L MIXER Miscellaneous - Cathy Mccoy M.D. - 09/01/2015 11:08 AM CST Ambulatory Discharge Medication List [place] - [address] [id number] Visit Information Name: SANDY CHANCEBRANT BARKER [facility] Number: [id number] Visit Date: 09/01/2015 11:08:05 Attending Provider: CATHY MCCOY MD Primary Care Provider: CATHY MCCOY MD JUWANSANDY HENAOBRANT BARKER has been given the following list [...] nasal (fluticasone nasal 0.05 mg/inh spray) 2 Glencliff(s), Nasal, once a day gemfibrozil (gemfibrozil 600 mg oral tablet) 1 Tablet(s), Oral, two times a day Routed to [address] [address] indomethacin (indomethacin 25 mg oral capsule) 1 cap, Oral, three times a day as needed for Pain Take with food insulin lispro protamine-insulin lispro (Humalog Mix 75/25 subcutaneous suspension) See [id number] am and 70 pm Routed to [address] [address] lisinopril (lisinopril 5 mg oral tablet) 1 Tablet(s), Oral, once a day Routed to [address] [address] LORazepam (LORazepam 1 mg oral tablet) 1 Tablet(s), Oral, three times a day as needed for Anxiety metFORMIN (metFORMIN 500 mg oral tablet, extended release) 1 Tablet(s), Oral, once a day Routed to [address] [address] metoprolol (metoprolol 25 mg oral tablet) 0.5 Tablet(s), Oral, two times a day Routed to [address] [place] [address] nitroglycerin (nitroglycerin 0.4 mg sublingual tablet) 1 [...] nasal (Saline Nasal Mist nasal spray) 2 Glencliff(s), Nostrils(Both), four times a day as needed for Dry nasal passages triamcinolone topical (Kenalog in Orabase 0.1% mucous membrane paste) 1 cecile, Topical, four times a day as needed for tooth pain Stop Taking the Following Medications: Medication list as of 09-01-15 11:08 Attention: If you have any medications at [...] Electronically Signed By: CATHY MCCOY MD Signed On:01-SEP-2015 11:07:25 Additional Information: Yes - . Source: [facility] POWERCHART Document Id: [id number] L MIXER Miscellaneous - Shirin Keen L.P.N. - 09/01/2015 10:05 AM CST Adult Aircraft Painter Intake/History Adult Aircraft Painter Intake/History Entered On: 09/01/2015 10:07 METAL MIXER Performed On: 09/01/2015 10:05 METAL MIXER by SHIRIN KEEN LPN Intake Chief Complaint : follow up diabetes Temperature Core : 36.5 DegC(Converted to: 97.7 DegF) Peripheral Pulse Rate : 68 /min Respiratory Rate : 20 /min Heart Rhythm : Regular Systolic Blood Pressure : 118 mmHg Diastolic Blood Pressure : 70 mmHg NIBP Mean : 86 mmHg BP Location : Left upper extremity Blood Pressure Cuff Size : Large Height : 174 cm(Converted to: 5 ft 9 inch(es), 69 inch(es)) Actual Weight : 109.5 kg(Converted to: 241 lb 6 oz) Dosing Weight Clinic : 109.5 kg Clinic BSA : 2.3 Body Mass Index : 36.17 kg/m2 SHIRIN KEEN LPN - 09/01/2015 10:05 METAL MIXER General Info Information Given By : Patient Preferred Communication Mode : Verbal Languages : Vietnamese Is Patient Female and 13-50 no hysterectomy : SHIRIN Hawkins LPN - 09/01/2015 10:05 METAL MIXER Subjective Pain Symptoms : SHIRIN Hawkins LPN - 09/01/2015 10:05 METAL MIXER Dependent Habits Exposure to Tobacco Smoke : Other: non smoker Smoking Status : Never smoker Tobacco 2A : SHIRIN Hawkins LPN - 09/01/2015 10:05 METAL MIXER Caffeine Use Grid Caffeine Use : Current Type : Coffee Frequency : Daily SHIRIN KEEN LPN - 09/01/2015 10:05 METAL MIXER Source: [facility] Document Id: [id number] METAL MIXER!33 L MIXER documented in this encounter Plan of Treatment Not on filedocumented as of this encounter Visit Diagnoses Not on filedocumented in this encounter
--- OUTSIDE RECORDS SUMMARY | 2022-05-24 18:29 | XMS_ITS | Encounter Summary ---
:1945 Author Organization [facility] Address [address] [place] [address] Care Team Providers Name Role Phone Unavailable Primary Care Provider Unavailable Encounter Details Date Type Department Care Team Description 09/28/2011 Hospital Encounter [facility] Tammy Mccoy M.D. Social History Tobacco [...] Sig Dispensed Refills Start Date End Date BISMUTH SUBSALICYLATE ORAL Take by mouth as 0 11/200804/01/2019 needed. documented as of this encounter Plan of Treatment Not on filedocumented as of this encounter Procedures Procedure Name Priority Date/Time Associated Diagnosis Comme nts LIPID PANEL, S Routine 09/28/2011 8:55 AM Results for this [employer] procedure are i n the results section. HEMOGLOBIN A1C, B Routine 09/28/2011 8:55 AM Resu lts for this [employer] procedure are i n the results section. documented in this encounter Results (ABNORMAL) Hemoglobin A1c (09/28/2011 8:55 AM [employer]) P athologist Signature Hemoglobin A1c, 8.8 (H) 4.8 - 5.9 POWERCHART B Specimen (Source) Anatomical Collection Method Collection Time Re ceived Time Location / / Volume Laterality Blood 09/28/2011 8:55 AM [employer] Cathy Mccoy M.D. LAB BLOOD ADD-ON Performing Organization Address City/State/ZIP Code Phon e Number POWERCHART (ABNORMAL) Lipid Panel (09/28/2011 8:55 AM [facility]) Patholo gist Method Time Signature Cholesterol, 160.0 120.0 - POWERCHART Total 200.0 MGDL HX HDL 23.0 (L) 40.0 - POWERCHART 85.0 MGDL Triglycerides 248 (H) 35 - 185 POWERCHART MGDL Calculated LDL 87 60 - 130 POWERCHART MGDL Total 7.0 POWERCHART Cholesterol/HDL Ratio HXLDL/HDL 4 POWERCHART Specimen (Source) Anatomical Collection Method Collection Time Re ceived Time Location / / Volume Laterality Blood 09/28/2011 8:55 AM [employer] Cathy Mccoy M.D. LAB BLOOD ADD-ON Performing Organization Address City/State/ZIP Code Phon e Number POWERCHART documented in this encounter Visit Diagnoses Not on filedocumented in this encounter
--- OUTSIDE RECORDS SUMMARY | 2022-05-24 18:29 | XMS_ITS | Encounter Summary ---
:1945 Author Organization [facility] Address [address] [place] [address] Care Team Providers Name Role Phone Unavailable Primary Care Provider Unavailable Encounter Details Date Type Department Care Team Description 07/24/2013 Hospital Encounter HX [facility] Jerica Freeman M. D. Social [...] More than 4 times per year 06/14/2019 [employer] services? Do you belong to any clubs [...] Sign Reading Time Taken Comments Blood Pressure 112/64 07/24/2013 11:06 AM KNITTING TEACHER Pulse 64 07/24/2013 11:06 AM KNITTING TEACHER Temperature - - Respiratory Rate 16 07/24/2013 11:06 AM KNITTING TEACHER Oxygen Saturation - - Inhaled Oxygen Concentration - - Weight 105 kg (231 lb 7.7 oz) 07/24/2013 11:06 AM KNITTING TEACHER Height 194 cm (6' 4.38) 07/24/2013 11:06 AM KNITTING TEACHER Body Mass Index 27.9 07/24/2013 11:06 AM KNITTING TEACHER documented in this encounter Medications at Time of Discharge Medication Sig Dispensed Refills Start Date End Date DOCOSAHEXANOIC ACID/EPA Take 1 capsule by 0 06/13 (FISH OIL ORAL) mouth 3 (three) times a day. When remembers sodium chloride 3 % mist Administer 2 sprays 0 into each nostril 4 (four) times a day as needed. BISMUTH SUBSALICYLATE Take by mouth as 0 03/13/20 09 04/01/2019 ORAL needed. documented as of this encounter Progress Notes Jerica Ellison M.D. - 07/24/2013 10:43 AM CST [id number] CHIEF COMPLAINT/REASON FOR VISIT Colonic diverticulosis, H. pylori gastritis and chronic pancreatic insufficiency. PRIMARY PHYSICIAN: Cathy Mccoy M.D. HISTORY OF PRESENT ILLNESS Mr. Chance returns to clinic for followup. The patient's diarrhea has completely resolved after he started on Creon 1 tablet with each meal. The patient's CT scan showed atrophy of the pancreas withpancreatic calcification and dilated pancreatic duct, suggesting pancreatic insufficiency causing atrophy as well as calcifications. The patient has no abdominal pain. His upper endoscopy showed H. pylori gastritis that was confirmed on the biopsy. Colonic biopsy as well as small bowel biopsies were negative for any new pathology. The patient was informed of the result. He claimed that his appetite has improved. His diarrhea has resolved. His gas bloating also improved since he started on Creon replacement. The patient was informed of H. pylori, and since he is allergic to penicillin, Pylera therapy for 10 days was sent to the local pharmacy. VITAL SIGNS Temperature of 36.9, pulse 64, respiratory rate 16, blood pressure 112/64, weight is 105 kg, body mass index 28. PHYSICAL EXAMINATION ABDOMEN: Flat, soft, nontender. Bowel sounds present. Normoactive. REPORT 1. H. pylori gastritis. 2. Pancreatic insufficiency. PLAN: Continue Creon at 1 tablet with each meal, Pylera therapy for 10 days. Return to clinic in 6 months. Will need to repeat CT scan to exclude pancreatic malignancy yearly. Juliano Ellison M.D./pos cc: Cathy Mccoy M.D. [facility] [place] in [address] [address] Electronically Signed By: JERICA ELLISON MD On: 07/29/2013 03:36 PM Modified by and Electronically Signed by: JERICA ELLISON MD On: 07/29/2013 03:36 PM Source: [facility] MHSDOLBEYNONRADSYS Document Id: [id number] TING TEACHER documented in this encounter Miscellaneous Notes Miscellaneous - Polo Jean-Baptiste L.P.NKamila - 07/26/2013 10:12 AM CST pylera Document Contains Addenda Addendum by POLO JEAN-BAPTISTE LPN on 26 July 2013 12:20:42 KNITTING TEACHER Patient notified and verbalized understanding. Addendum by JERICA ELLISON MD on 26 July 2013 10:34:15 KNITTING TEACHER From: JERICA ELLISON MD To: POLO JEAN-BAPTISTE LPN; Sent: 07/26/2013 10:34:15 KNITTING TEACHER Subject: RE: pylera Take prilosec 20mg Daily. From: POLO JEAN-BAPTISTE LPN To: JERICA ELLISON MD; Sent: 07/26/2013 10:12:45 KNITTING TEACHER Subject: pylera Patient picked up pylera. He was informed that he should be taking an acid yareli along with this.Please advise. Thank you. Source: [facility] POWERCHART Document Id: [id number] Electronically signed by Gricelda [facility] System[facility] Valet Runner [id number] at 02/08/2017 12:39 AM CDT Miscellaneous - Jerica Ellison M.D. - 07/24/2013 11:29 AM CST Ambulatory Patient Summary [place] [id number] [facility] [address] [place] [address] Visit Information Name: [address] Number: [id number] Current Date: 07/24/2013 11:29:54 Physicians Attending Provider: JERICA ELLISON MD Primary [...] you have problems taking your medications. Medication/Strength Dose Route Frequency Indications/Special Instructions/Comments/Notes bismuth subcitrate potassium/metroNIDAZO/TCN (Pylera oral capsule) 3 cap(s) Oral four times a day pancrelipase (Creon 36,000 units oral delayed release capsule) 1 cap(s) Oral three times a day with meals insulin lispro protamine-insulin lispro (Humalog Mix 75/25 subcutaneous suspension) See [id number] units bid gemfibrozil (gemfibrozil 600 mg oral tablet) 600 mg Oral two times a day emollients, topical (Lubricating Jelly topical gel) 1 cecile Topical two times a day sodium chloride nasal (Saline Nasal Mist nasal spray) 2 spray(s) Nostrils(Both) four times a day as needed for Dry nasal passages Misc Prescription (Misc Prescription) phenylephrine omega-3 polyunsaturated fatty acids (Fish Oil 1000 mg oral capsule) 1,000 mg Oral three times a day allopurinol (allopurinol 100 mg oral tablet) 100 mg Oral two times a day metFORMIN (metFORMIN 500 mg oral tablet, extended release) 500 mg Oral once a day lisinopril (lisinopril 5 mg oral tablet) 5 mg Oral once a day nitroglycerin (nitroglycerin 0.4 mg sublingual tablet) 0.4 mg Sublingual as needed as needed for Chest Pain indomethacin (indomethacin 25 mg oral capsule) 25 mg Oral three times a day as needed for Pain Take with food metoprolol (metoprolol 25 mg oral tablet) 12.5 mg Oral two times a day epinephrine (EpiPen 2-Yves 0.3 mg injectable kit) 0.3 mg Intramuscular once albuterol (albuterol CFC free 90 mcg/inh inhalation aerosol) 2 puff(s) Inhalation every 4 hours as needed for Shortness of Breath allergic triggered asthma fluocinonide topical (Lidex 0.05% topical solution) 1 cecile Topical two times a day fluticasone nasal (fluticasone nasal 0.05 mg/inh spray) 2 spray(s) Nasal once a day TURBINATE HYPERTROPHY / PLEASE USE YOU WERE SHOWN IN THE OFFICE SO TO AVOID THE MIDDLE SEPTUM bismuth subsalicylate (Pepto-Bismol) Oral as needed upset stomach Attention: If you have any medications at home that are not on this list, DO NOT take them until youcontact your provider for clarification. Your Allergies & Intolerances Substance Reaction Symptoms [...] appointment detail needed. Your Goals/Additional instructions: Source: [facility] POWERCHART Document Id: [id number] TING TEACHER Miscellaneous - Jerica Ellison M.D. - 07/24/2013 11:29 AM CST Ambulatory Depart Summary [facility] [address], [address] [place] [address] Visit Information Name: [address] [facility] Number: [id number] Visit Date: 07/24/2013 11:29:54 Attending Provider: JERICA ELLISON MD Primary Care Provider: CATYH MCCOY MD [facility] has been given the following list of medications: Your Medications It is important to take your medications as directed. Use a pill box or chart to help remind you to take your medications. Please let your doctor or nurse know if you have problems taking your medications. Medication/Strength Dose Route Frequency Indications/Special Instructions/Comments/Notes bismuth subcitrate potassium/metroNIDAZO/TCN (Pylera oral capsule) 3 cap(s) Oral four times a day pancrelipase (Creon 36,000 units oral delayed release capsule) 1 cap(s) Oral three times a day with meals insulin lispro protamine-insulin lispro (Humalog Mix 75/25 subcutaneous suspension) See [id number] units bid gemfibrozil (gemfibrozil 600 mg oral tablet) 600 mg Oral two times a day emollients, topical (Lubricating Jelly topical gel) 1 cecile Topical two times a day sodium chloride nasal (Saline Nasal Mist nasal spray) 2 spray(s) Nostrils(Both) four times a day as needed for Dry nasal passages Misc Prescription (Misc Prescription) phenylephrine omega-3 polyunsaturated fatty acids (Fish Oil 1000 mg oral capsule) 1,000 mg Oral three times a day allopurinol (allopurinol 100 mg oral tablet) 100 mg Oral two times a day metFORMIN (metFORMIN 500 mg oral tablet, extended release) 500 mg Oral once a day lisinopril (lisinopril 5 mg oral tablet) 5 mg Oral once a day nitroglycerin (nitroglycerin 0.4 mg sublingual tablet) 0.4 mg Sublingual as needed as needed for Chest Pain indomethacin (indomethacin 25 mg oral capsule) 25 mg Oral three times a day as needed for Pain Take with food metoprolol (metoprolol 25 mg oral tablet) 12.5 mg Oral two times a day epinephrine (EpiPen 2-Yves 0.3 mg injectable kit) 0.3 mg Intramuscular once albuterol (albuterol CFC free 90 mcg/inh inhalation aerosol) 2 puff(s) Inhalation every 4 hours as needed for Shortness of Breath allergic triggered asthma fluocinonide topical (Lidex 0.05% topical solution) 1 cecile Topical two times a day fluticasone nasal (fluticasone nasal 0.05 mg/inh spray) 2 spray(s) Nasal once a day TURBINATE HYPERTROPHY / PLEASE USE YOU WERE SHOWN IN THE OFFICE SO TO AVOID THE MIDDLE SEPTUM bismuth subsalicylate (Pepto-Bismol) Oral as needed upset stomach Attention: If you have any medications at home that are not on this list, DO NOT take them until youcontact your provider for clarification. Additional Information: Source: [facility] POWERCHART Document Id: [id number] TING TEACHER Miscellaneous - Polo Jean-Baptiste LKamilaPKamilaN. - 07/24/2013 11:06 AM CST Adult Line Crewman Intake/History Adult Line Crewman Intake/History Entered On: 07/24/2013 11:09 KNITTING TEACHER Performed On: 07/24/2013 11:06 KNITTING TEACHER by POLO JEAN-BAPTISTE LPN Intake Chief Complaint : Colonic diverticulosis, nonspecific gastritis Temperature Core : 36.9 DegC(Converted to: 98.4 DegF) Peripheral Pulse Rate : 64 /min Respiratory Rate : 16 /min Heart Rhythm : Regular Systolic Blood Pressure : 112 mmHg Diastolic Blood Pressure : 64 mmHg NIBP Mean : 80 mmHg BP Location : Right upper extremity Blood Pressure Cuff Size : Large Height : 194 cm(Converted to: 6 ft 4 inch(es), 76.38 inch(es)) Actual Weight : 105 kg(Converted to: 231 lb 8 oz) Weight Source : Standing scale Dosing Weight Clinic : 105 kg Clinic BSA : 2.38 Body Mass Index : 27.9 kg/m2 POLO JEAN-BAPTISTE LPN - 07/24/2013 11:06 KNITTING TEACHER General Info Information Given By : Patient Preferred Communication Mode : Verbal Languages : Persian POLO JEAN-BAPTISTE LPN - 07/24/2013 11:06 KNITTING TEACHER Subjective Pain Symptoms : No POLO JEAN-BAPTISTE LPN - 07/24/2013 11:06 KNITTING TEACHER Dependent Habits Tobacco Use/Currently Using : No Exposure to Tobacco Smoke : Other: non smoker Smoking Status : Never smoker POLO JEAN-BAPTISTE KIMBERLY - 07/24/2013 11:06 KNITTING TEACHER Tobacco Use Grid Last Use : Never POLO JEAN-BAPTISTE KIMBERLY - 07/24/2013 11:06 KNITTING TEACHER Alcohol Use : No POLO JEAN-BAPTISTE KIMBERLY - 07/24/2013 11:06 KNITTING TEACHER Caffeine Use Grid Caffeine Use : Current Type : Coffee Frequency : Daily POLO JEAN-BAPTISTE KIMBERLY - 07/24/2013 11:06 KNITTING TEACHER [facility] Document Id: [id number] KNITTING TEACHER!37 TING TEACHER Miscellaneous - Juliana Huerta, Pharm.D., R.Ph. - 07/24/2013 10:54 AM KNITTING TEACHER General Message - Medication Cost Document Contains Addenda Addendum by JULIANA HUERTA PharmD on 24 July 2013 14:22:33 KNITTING TEACHER From: JULIANA HUERTA PharmD To: CHEYENNE JEAN-BAPTISTECHINA Murguia LPN; JERICA ELLISON MD; Sent: 07/24/2013 14:22:33 KNITTING TEACHER Subject: FW: General Message - Medication Cost I called patient this afternoon and left a message. At this time, there are no generic or lower-cost alternatives to Creon 36,000 except, perhaps, a lower dose of Creon. The other pancreatic enzyme formulations available are all also brand-only and are similar in cost. Checking his insurance, it does not appear that any of them are any better covered than his current Creon prescription. Patient may qualify for the Creon Co-Pay Assistance Program. He can apply by calling . This program can save him up to $25 per month on the cost of his Creon prescription. He could also contact [employer] Assistance Program that may further assist him in medication costs by calling [phone]. I have sent the patient a copy of this information and ordered an MTM Consult to meet face to face with a pharmacist to review meds in the future if he desires, which would be covered by his insurance. Thanks for the question! From: JULIANA HUERTA PharmD To: JULIANA HUERTAD; Sent: 07/24/2013 10:54:50 KNITTING TEACHER Subject: General Message - Medication Cost Received call from Dr. Ellison's nurse requesting help with cost of Creon for patient. Pharmacist will call patient this afternoon to discuss. Source: [facility] POWERCHART Document Id: [id number] documented in this encounter Plan of Treatment Not on filedocumented as of this encounter Visit Diagnoses Not on filedocumented in this encounter
--- OUTSIDE RECORDS SUMMARY | 2022-05-24 18:29 | XMS_ITS | Encounter Summary ---
:1945 Author Organization [facility] Address [address] [place] [address] Care Team Providers Name Role Phone Unavailable Primary Care Provider Unavailable Encounter Details Date Type Department Care Team Description 01/25/2013 Hospital Encounter HX [facility] Juan Manuel Kruse M.D. [id number] [phone] (Wo rk) Social History Tobacco Use Types [...] Sign Reading Time Taken Comments Blood Pressure 124/79 01/25/2013 11:03 AM CDT Pulse - - Temperature - - Respiratory Rate - - Oxygen Saturation - - Inhaled Oxygen Concentration - - Weight 117 kg (257 lb 0.9 oz) 01/25/2013 11:03 AM CDT Height - - Body Mass Index 30.98 01/18/2013 9:38 AM CDT documented in this encounter Medications at Time of Discharge Medication Sig Dispensed Refills Start Date End Date BISMUTH SUBSALICYLATE ORAL Take by mouth as 0 11/200804/01/2019 needed. documented as of this encounter Nursing Notes Samira Lu - 02/25/2013 9:27 AM CDT Supervisor Water Softener Service Intake (Adult) Supervisor Water Softener Service Intake (Adult) Entered On: 02/25/2013 9:50 CDT Performed On: 02/25/2013 9:27 CDT by SAMIRA LU Assessment Program Type : Non-Program Type of Visit : Telephone Consult Diabetes Referring Provider : NIKIA MCOCY MD Comprehensive Program Start Date : 11/02/2011 TRAP SETTER Special needs : None Method Used for DSME : Individual Program Non-completion Reason : Stopped coming, ceased correspondance via fax Last Educator Visit Date : 02/05/2013 CDT Diabetes Type : Type 2 19 years and older Ethnicity : White/ Diabetes Onset At Age : 44 Current Treatment : Insulin vial, Oral agents Medication Compliance : Rarely misses doses Medication Categories : Biguanide, Insulin Glucose Meter : Other: One Touch Ultra Monitoring Frequency : Twice daily, Other: 2-4 Times per day depending on food intake, activiety Glucose Results : Fasting, Preprandial Supper, Other: He randomly takes his blood sugar, tries to take them every morning and then if he is not feeling well he will take them. SAMIRA LU - 02/25/2013 9:27 CDT Glucose Meter Check Grid Glucose Meter Date Checked : 01/25/2013 CDT Glucose Meter Correctly Coded : Yes Test Strips : No SAMIRA LU - 02/25/2013 9:27 CDT Blood Glucose Range Grid Blood Glucose Range Time Frame : 02/08/13-02/15/12 Fasting : 83-196 Postprandial Breakfast : 50-173 Preprandial Lunch : 57-94 Postprandial Lunch : 60-280 Preprandial Supper : 94-247 Postprandial Supper : 92-237 SAMIRA LU - 02/25/2013 9:27 CDT Hypoglycemia Acute Complicatons grid Frequency : Weekly Usual Symptoms : Other: Lethargic Treatment : Juice, 1/2 cup Comment : resolved s/s SAMIRA LU 02/25/2013 9:27 CDT Hyperglycemia Acute Complications grid Frequency : Daily Usual Symptoms : None SAMIRA LU 02/25/2013 9:27 CDT Foot Problems Numbness or discomfort : Right SAMIRA LU 02/25/2013 9:27 CDT Daily self-foot exam : No Dilated eye exam every year : Yes Dental Problems : Gum disease, Other: Goes every 3-4 months Date of Last Dental Exam : 01/24/2013 CDT Exercise Type : Aerobics Exercise Frequency : 4-6 times per week Duration : 30-60 minutes Diabetes Visit Summary : Called Jorge to discuss his blood sugar sheet that he had emailed. CDE questioned whether he would forget to take his insulin on some days, noting higher than normal blood sugars. He confirms that he is not forgetting the insulin and blames his diet for the blood sugars into the low to mid 200's. Low blood sugars noted, he states on some days he is busier outside. He feels hypoglycemic when he reaches the 50's. I feel weak. He treats by eating high carb snacks. He changes his dose of insulin frequently, making a judgement call on his blood suga, intended food intake and amount of activity he intends on performingr. AM insulin 50-70 Units; PM 50-70 Units. He states that if he knows he is going to pig out he will take additional insulin. Plan: To discuss basal/bolus insulin with him. Discuss the dangers of hypoglycemia and prevention of. Time Spent With Patient : Other: 12 phone consult SAMIRA LU 02/25/2013 9:27 CDT Detailed Blood Glucose Record Detailed Blood Glucose grid Day 1 Blood Glucose Reading Day 1 Insulin Day 2 Blood Glucose Reading Day 3 Blood Glucose Reading Date : 02/08/2013 CDT 02/08/2013 CDT 02/09/2013 CDT 02/10/2013 CDT Fasting : 196 191 XXX Postpandial Breakfast : XXX XXX 173 Prepandial Lunch : XXX 78 XXX Postpandial Lunch : XXX XXX 60 Prepandial Supper : 205 247 94 Postpandial Supper : 185 200 92 SAMIRA LU 02/25/2013 9:27 CDT SAMIRA LU - 02/25/2013 9:27 CDT [facility] 02/25/2013 9:27 CDT HAYDEN 02/25/2013 9:27 CDT Day 4 Blood Glucose Reading Day 4 Insulin Day 5 Blood Glucose Reading Day 5 Insulin Date : 02/11/2013 CDT 02/12/2013 CDT Fasting : 94 70 83 60 Postpandial Breakfast : XXX 50 Prepandial Lunch : 94 XXX Postpandial Lunch : XXX XXX Prepandial Supper : 122 119 62 Postpandial Supper : 109 70 HAYDEN SAMIRA 02/25/2013 9:27 CDT [facility] 02/25/2013 9:27 CDT HAYDEN 02/25/2013 9:27 CDT HAYDEN 02/25/2013 9:27 CDT Day 6 Blood Glucose Reading Day 6 Insulin Day 7 Blood Glucose Reading Day 7 Insulin Date : 02/13/2013 CDT 02/14/2013 CDT Fasting : 122 60 128 50 Postpandial Breakfast : XXX 76 Prepandial Lunch : 57 XXX Postpandial Lunch : 185 280 Prepandial Supper : 134 54 103 62 Postpandial Supper : 237 HAYDEN 02/25/2013 9:27 CDT [facility] 02/25/2013 9:27 CDT [facility] 02/25/2013 9:27 CDT [facility] 02/25/2013 9:27 CDT Education Diabetes Education Grid Topics : Nutritional Management - Carb Counting, Physical activity, Medications/Effectiveness - Insulin, Acute Complications - Preventing, Acute Complications - Detecting, Acute Complications - Treating, Acute Complications - Hyperglycemia/Hypoglycemia, Other: Discussed the pro and cons of basal/bolus. (Comment: Patient goal: Improved blood sugars, no hypoglycemia. Response: He states he would consider changing to basal/bous, but he wants to think about it. He is not in favor to taking additional injections. Plan: Continue using his mixed insulin and send CDE his blood sugars for review. [HAYDEN SAMIRA 02/25/2013 9:27 CDT] ) Individuals Taught : Patient, Spouse (Comment: spouse was in the backround taking part in the telephone conversation [HAYDEN SAMIRA 02/25/2013 9:27 CDT] ) Barriers to Learning : None evident Teaching Method : Explanation, Printed materials Teaching Evaluation : Verbalizes understanding SAMIRA LU - 02/25/2013 9:27 CDT Comprehensive Program Goals Diabetes Education Goals Grid Diabetes Education Goal #1 row Diabetes Education Goal #2 row Diabetes Education Goal #3 row Diabetes Education Goal #4 row Date Goal Set : 11/02/2011 TRAP SETTER 11/02/2011 TRAP SETTER 01/25/2013 CDT 01/25/2013 CDT Goal : Review insulin use and storage technique Check blood sugars fasting and one or the other; preand post noon or evening meals. Drop the sheet off in one week for CDE to review. Check blood sugar fasting, pre and post evenng meal ( before he eats his evening snack.) Fax blood sugar log to CDE weekly. Related Content Area : Problem Solving Monitoring Monitoring Problem Solving Goal follow up date : 01/25/2013 CDT 01/25/2013 CDT 02/25/2013 CDT 02/25/2013 CDT Goal Achievement Rating : 100% 100% 75% 75% Goal Review : Achieved Achieved Continued Continued SAMIRA LU - 02/25/2013 9:27 CDT SAMIRA LU - 02/25/2013 9:27 CDT SAMIRA LU - 02/25/2013 9:27 CDT SAMIRA LU - 02/25/2013 9:27 CDT Source: [facility] [employer] Document Id: [id number] CDT!162 Samira Lu - 02/05/2013 8:31 AM CDT Supervisor Water Softener Service Intake (Adult) Supervisor Water Softener Service Intake (Adult) Entered On: 02/05/2013 8:35 CDT Performed On: 02/05/2013 8:31 CDT by SAMIRA LU Assessment Program Type : Non-Program Type of Visit : Other: Faxed blood sugars to CDE Diabetes Referring Provider : NIKIA MCCOY MD Comprehensive Program Start Date : 11/02/2011 TRAP SETTER Special needs : None Method Used for DSME : Individual Program Non-completion Reason : Stopped coming, ceased correspondance via fax 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 SAMIRA LU 02/05/2013 8:31 CDT Glucose Meter Check Grid Glucose Meter Date Checked : 01/25/2013 CDT Glucose Meter Correctly Coded : Yes Test Strips : No SAMIRA LU 02/05/2013 8:31 CDT Hypoglycemia Acute Complicatons grid Frequency : Rarely Usual Symptoms : Other: Lethargic Treatment : Juice, 1/2 cup Comment : resolved s/s SAMIRA LU 02/05/2013 8:31 CDT Hyperglycemia Acute Complications grid Frequency : Daily Usual Symptoms : None SAMIRA LU 02/05/2013 8:31 CDT Foot Problems Numbness or discomfort : Right HAYDEN SAMIRA 02/05/2013 8:31 CDT Daily self-foot exam : No Dilated eye exam every year : Yes Dental Problems : Gum disease, Other: Goes every 3-4 months Date of Last Dental Exam : 01/24/2013 CDT Exercise Type : Aerobics Exercise Frequency : 4-6 times per week Duration : 30-60 minutes Time Spent With Patient : Other: 000 HAYDEN SAMIRA 02/05/2013 8:31 CDT Detailed Blood Glucose Record Detailed Blood Glucose grid Day 6 Insulin Day 1 Blood Glucose Reading Day 2 Blood Glucose Reading Day 3 Blood Glucose Reading Date : 01/25/2013 CDT 01/26/2013 CDT 01/27/2013 CDT Fasting : 122 105 91 Postpandial Lunch : 75U 151 Prepandial Supper : 141 116 Postpandial Supper : 72U 113 196 119 Comments : SAMIRA LU 02/05/2013 8:55 CDT HAYDEN SAMIRA 02/05/2013 8:31 CDT SAMIRA LU 02/05/2013 8:31 CDT SAMIRA LU 02/05/2013 8:31 CDT Day 4 Blood Glucose Reading Day 5 Blood Glucose Reading Day 6 Blood Glucose Reading Day 7 Blood Glucose Reading Date : 01/28/2013 CDT 01/29/2013 CDT 01/30/2013 CDT 01/31/2013 CDT Fasting : 103 214 195 110 Postpandial Lunch : 79 Prepandial Supper : 68 128 103 249 Postpandial Supper : 67 113 184 Comments : Jorge confirms that he had written his insulin dose in the wrong column, he is taking it before his breakfast and evening meals. HAYDEN SAMIRA Chambers 02/05/2013 8:31 CDT HAYDEN SAMIRA Chambers 02/05/2013 8:31 CDT [facility] SAMIRA Chambers 02/05/2013 8:55 CDT SAMIRA LU 02/05/2013 8:31 CDT Education Diabetes Education Grid Topics : Nutritional Management - Small Portions, Physical activity, Medications/Effectiveness - Insulin, Medications/Effectiveness - Dosage, route, scheduling, Medications/Effectiveness - Oral Agents,Monitoring - Blood Glucose, Using Results - Blood Glucose (Comment: Jorge emailed me his blood sugars from 01/25/13-01/31/13. He requests that CDE call him to discuss them. CDE notes that he had written his inulin dose int he middle of one day. His scheducled dose of 83 Units is not being used. He tatesbetween 72-80 Units ac breakfast and evening meal. He confirms that he had written the units in the wrong column. He changes his dose according to his blood sugars, lower results he will take fewer units of insulin. He feels shakey when his blood sugars near 100. He will continue to take 72-80 Units in an effort to improve his blood sugar numbers. [HAYDENSAMIRA 02/05/2013 8:55 CDT] ) Individuals Taught : Patient Barriers to Learning : None evident Teaching Method : Explanation, Printed materials Teaching Evaluation : Verbalizes understanding SAMIRA LU 02/05/2013 8:55 CDT Comprehensive Program Goals Diabetes Education Goals Grid Diabetes Education Goal #1 row Diabetes Education Goal #2 row Diabetes Education Goal #3 row Diabetes Education Goal #4 row Date Goal Set : 11/02/2011 TRAP SETTER 11/02/2011 TRAP SETTER 01/25/2013 CDT 01/25/2013 CDT Goal : Review insulin use and storage technique Check blood sugars fasting and one or the other; preand post noon or evening meals. Drop the sheet off in one week for CDE to review. Check blood sugar fasting, pre and post evenng meal ( before he eats his evening snack.) Fax blood sugar log to CDE weekly. Related Content Area : Problem Solving Monitoring Monitoring Problem Solving Goal follow up date : 01/25/2013 CDT 01/25/2013 CDT 02/05/2013 CDT 02/05/2013 CDT Goal Achievement Rating : 100% 100% 100% 100% Goal Review : Achieved Achieved Continued Continued SAMIRA LU - 02/05/2013 8:55 CDT SAMIRA LU - 02/05/2013 8:55 CDT SAMIRA LU - 02/05/2013 8:55 CDT SAMIRA LU - 02/05/2013 8:55 CDT Source: [employer] Document Id: [id number] CDT!122 Samira Lu - 01/25/2013 8:59 AM CDT Supervisor Water Softener Service Intake (Adult) Document Has Been Updated Supervisor Water Softener Service Intake (Adult) Entered On: 01/25/2013 9:47 CDT Performed On: 01/25/2013 8:59 CDT by SAMIRA LU Assessment Program Non-completion Reason : Stopped coming, ceased correspondance via fax Daily self-foot exam : No Diabetes Visit Summary : Jorge presents today with Clara. They are here to discuss assistance in improving the control of his blood sugars. There is great variability in his blood sugars and this is a concern. He is walking most days of the week but his ability to continue at a rate of 30 daily has steady gone down over the last few months due to pain in his right foot. He also speaks of numbness developing. He has worked with a podietrist in the past but it has been several years since he has seen one. Review of his insulin prep, drawing up and injection prove flawless. He rejects the suggestion of using an insulin pen, he had one in the past and does not see the value vs increase cost reason to use one. He had gone off of his metformin in October 2012 for a couple months hoping that a rash on his arm would go away. It has resolved some, but he found that without the use of metformin his blood sugar control was greatly impacted, he has been back on it now for several weeks. He prepared a log sheet before coming to show this junior underwriter. The data was not in the correct columns and very difficult to follow. 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 SAMIRA LU 01/25/2013 8:59 CDT SAMIRA LU 01/25/2013 8:59 CDT Glucose Meter Check Grid Glucose Meter Date Checked : 01/25/2013 CDT Glucose Meter Correctly Coded : Yes Test Strips : No Glucose Meter Controls : SAMIRA LU 01/25/2013 11:04 CDT Blood Glucose Range Grid Fasting : 122-180 SAMIRA LU 01/25/2013 8:59 CDT Hypoglycemia Acute Complicatons grid Frequency : Rarely (Comment: Had a 76 when he restarted the metformin. He felt lethargic [SAMIRA LU 01/25/2013 11:04 CDT] ) Usual Symptoms : Other: Lethargic Treatment : Juice, 1/2 cup (Comment: 4-6 oz [HAYDENSAMIRA 01/25/2013 11:04 CDT] ) Comment : resolved s/s SAMIRA LU 01/25/2013 8:59 CDT Hyperglycemia Acute Complications grid Frequency : Daily Usual Symptoms : None SAMIRA LU 01/25/2013 8:59 CDT Foot Problems Numbness or discomfort : Right (Comment: toes [HAYDEN SAMIRA Chambers 01/25/2013 11:04 CDT] ) SAMIRA LU 01/25/2013 8:59 CDT Dilated eye exam every year : Yes Dental Problems : Gum disease, Other: Goes every 3-4 months Date of Last Dental Exam : 01/24/2013 CDT Exercise Type : Aerobics Exercise Frequency : 4-6 times per week Duration : 30-60 minutes SAMIRA LU 01/25/2013 8:59 CDT Nutrition Assessment/Plan Diet History Snacks : Popcorn after evening meal. Chips with cheese sauce, icecream or pudding. Likes all fruit. SAMIRA LU 01/25/2013 8:59 CDT Detailed Blood Glucose Record Detailed Blood Glucose grid Day 1 Blood Glucose Reading Day 2 Blood Glucose Reading Day 3 Blood Glucose Reading Day 4 Blood Glucose Reading Date : 01/19/2013 CDT 01/20/2013 CDT 01/21/2013 CDT 01/22/2013 CDT Fasting : 128 223 172 207 Prepandial Supper : 290 194 182 Postpandial Supper : 347, no insulin Comments : believes he may have forgotten the evening dose of metformin HAYDEN SAMIRA 01/25/2013 11:04 CDT HAYDEN 01/25/2013 11:04 CDT HAYDEN 01/25/2013 11:04 CDT [facility]DEN 01/25/2013 11:04 CDT Day 5 Blood Glucose Reading Day 6 Blood Glucose Reading Day 7 Blood Glucose Reading Date : 01/23/2013 CDT 01/24/2013 CDT 01/25/2013 CDT Fasting : 223 180 122 Prepandial Supper : 151 190 Postpandial Supper : Comments : SAMIRA LU 01/25/2013 11:04 CDT [facility] 01/25/2013 11:04 CDT [facility] 01/25/2013 11:04 CDT Education Diabetes Education Grid Topics : Disease process, Physical activity, Medications/Effectiveness - Insulin Dose Adjustment, Medications/Effectiveness - Oral Agents, Monitoring - Blood Glucose, Using Results - Blood Glucose, Acute Complications - Preventing, Acute Complications - Detecting, Acute Complications - Treating, AcuteComplications - Hyperglycemia/Hypoglycemia, Chronic Complications - Preventing, Chronic Complications - Foot Care, Psychosocial Adjustment - Cost Issues, Other: Value of a well organized log sheet. (Comment: Patient Goal: Assistance in improving his blood sugars. Discuss medication options. He is concerned about the affordability of his supplies. Response: Jorge agrees that keeping a better log will make it easier to make insulin changes ( if needed). Will email his log sheets weekly to this junior underwriter.Agrees that an appt with his podietrist is a good idea. He agreed to make an appt. He is not interested in using basal/bolus inulin, he wants to keep his insulin use simple. Plan: Email CDE blood sugarlogs weekly; Make an appt with Dr Claros; continue to follow up with Dr Mccoy per current schedule. [HAYDEN SAMIRA 01/25/2013 11:04 CDT] ) Individuals Taught : Patient, Spouse (Comment: Clara [HAYDEN SAMIRA 01/25/2013 11:04 CDT] ) Barriers to Learning : None evident Teaching Method : Demonstration, Explanation, Printed materials Teaching Evaluation : Able to teach back, Verbalizes understanding Education Referral Made To : Other: Podiatry SAMIRA LU 01/25/2013 11:04 CDT Comprehensive Program Goals Diabetes Education Goals Grid Diabetes Education Goal #1 row Diabetes Education Goal #2 row Diabetes Education Goal #3 row Diabetes Education Goal #4 row Date Goal Set : 11/02/2011 TRAP SETTER 11/02/2011 TRAP SETTER 01/25/2013 CDT 01/25/2013 CDT Goal : Review insulin use and storage technique Check blood sugars fasting and one or the other; preand post noon or evening meals. Drop the sheet off in one week for CDE to review. Check blood sugar fasting, pre and post evenng meal ( before he eats his evening snack.) Fax blood sugar log to CDE weekly. Related Content Area : Problem Solving Monitoring Monitoring Problem Solving Goal follow up date : 01/25/2013 CDT 01/25/2013 CDT Goal Achievement Rating : 100% 100% Goal Review : Achieved Achieved SAMIRA LU 01/25/2013 11:04 CDT [facility] 01/25/2013 11:04 CDT [facility]AY[facility] SAMIRA 01/25/2013 11:04 CDT SAMIRA LU 01/25/2013 11:04 CDT DSMS Plan DSMS Plan Statement : This personalized follow-up plan for on-going self- management support was developed collaboratively with the patient. The patient feels this plan will help them manage their diabetes in the future. Diabetes Self Management Support Plan : Diabetes websites, Follow up with Dentist, Follow up with Assurance Associate/Opthalmologist, Follow up with Radio Communication Coordinator, Follow up with Primary Provider SAMIRA LU - 01/25/2013 11:04 CDT Source: [employer] Document Id: [id number]!116 documented in this encounter Miscellaneous Notes Miscellaneous - Samira Lu - 01/25/2013 11:03 AM CDT Ambulatory Vitals Height Weight Ambulatory Vitals Height Weight Entered On: 01/25/2013 11:04 CDT Performed On: 01/25/2013 11:03 CDT by SAMIRA LU Vitals/Ht/Wt Systolic Blood Pressure : 124 mmHg Diastolic Blood Pressure : 79 mmHg NIBP Mean : 94 mmHg BP Location : Right upper extremity Blood Pressure Cuff Size : Large Actual Weight : 116.6 kg(Converted to: 257 lb 1 oz) Weight Source : Standing scale Dosing Weight Clinic : 116.6 kg SAMIRA LU - 01/25/2013 11:03 CDT Source: [employer] Document Id: [id number] CDT!10 documented in this encounter Plan of Treatment Not on filedocumented as of this encounter Visit Diagnoses Not on filedocumented in this encounter
--- OUTSIDE RECORDS SUMMARY | 2022-05-24 18:29 | XMS_ITS | Encounter Summary ---
:1945 Author Organization [facility] Address [address] [place] [address] Care Team Providers Name Role Phone Unavailable Primary Care Provider Unavailable Encounter Details Date Type Department Care Team Description 07/16/2013 Hospital Encounter HX [facility] Jerica Tom M.D. Social History Tobacco Use Types Packs/Day [...] documented as of this encounter Procedure Notes Mala Logan, RIván - 07/16/2013 11:10 AM CST Preprocedure Checklist Document Has Been Updated Preprocedure Checklist Entered On: 07/16/2013 11:00 INSPECTING MACHINE ADJUSTER Performed On: 07/16/2013 11:10 INSPECTING MACHINE ADJUSTER by MALA LOGAN RN Checklist Last Fluid Intake : 07/15/2013 5:00 INSPECTING MACHINE ADJUSTER Last Food Intake : 07/14/2013 22:00 INSPECTING MACHINE ADJUSTER MALA LOGAN RN - 07/16/2013 10:59 INSPECTING MACHINE ADJUSTER Surgery Prep Grid Contacts/Glasses Removed : Yes Dentures Removed : NA Hairpins/Hairpiecies Removed : NA Hearing Aid Removed : NA Home Prep Complete : Yes Jewelry/Piercing Removed : NA Makeup/Nail [place]inean Removed : NA Oral Hygiene : NA Preop Scrub AM of Surgery : NA Preop Scrub Night Prior to Surgery : NA Prosthesis Removed : NA Surgical Prep Verified : NA Tampon Removed : NA Wearing Patient Gown : Yes Voided area operations director to procedure : NA MALA LOGAN RN - 07/16/2013 10:59 INSPECTING MACHINE ADJUSTER Patient Rights Grid Surgical/Procedure Consent Signed : Yes SOPHIA TAYLOR RN - 07/16/2013 16:43 INSPECTING MACHINE ADJUSTER Blood Consent Signed : MAURICE Family Location : with pt MALA LOGAN RN - 07/16/2013 10:59 INSPECTING MACHINE ADJUSTER Advance Directive Advanced Directives : No Advance Directive Additional Information : No SOPHIA TAYLOR RN - 07/16/2013 16:43 INSPECTING MACHINE ADJUSTER Allergy (As Of: 07/16/2013 16:44:14 INSPECTING MACHINE ADJUSTER) Allergies (Active) Adhesive Bandage Estimated Onset Date: Unspecified ; Reactions: Rash ; Created By: NOREEN HERNANDEZ LPN; Reaction Status: Active ; Category: Drug ; Substance: Adhesive Bandage ; Type: Allergy ; Updated By: NOREEN HERNANDEZ LPN; Reviewed Date: 06/13/2013 11:05 CDT aspirin Estimated Onset Date: Unspecified ; Reactions: Nosebleeds ; Created By: CECILIO MCCOY MD; Reaction Status: Active ; Category: Drug ; Substance: aspirin ; Type: Allergy ; Updated By: CATHY MCCOY MD; Reviewed Date: 06/13/2013 11:05 CDT Bee Stings Estimated Onset Date: Unspecified ; Created By: AMANDEEP BURRELL LPN; Reaction Status: Active ; Category: Environment ; Substance: Bee Stings ; Updated By: AMANDEEP BURRELL LPN; ReviewedDate: 06/13/2013 11:05 CDT clindamycin Estimated Onset Date: Unspecified ; Created By: AMANDEEP BURRELL LPN; Reaction Status:Active ; Category: Drug ; Substance: clindamycin ; Updated By: AMANDEEP BURRELL LPN; Reviewed Date: 06/13/2013 11:05 CDT Lipitor Estimated Onset Date: Unspecified ; Reactions: Chest Pain:Pressure/Tightness ; Created By: AMANDEEP BURRELL LPN; Reaction Status: Active ; Category: Drug ; Substance: Lipitor ; Type: Allergy ; Updated By: AMANDEEP BURRELL LPN; Reviewed Date: 06/13/2013 11:05 CDT penicillin Estimated Onset Date: Unspecified ; Reactions: Hives, SOB - Shortness of breath ; CreatedBy: AMANDEEP BURRELL LPN; Reaction Status: Active ; Category: Drug ; Substance: penicillin ; Type:Allergy ; Updated By: AMANDEEP BURRELL LPN; Reviewed Date: 06/13/2013 11:05 CDT Preprocedural Pause Correct Patient Identity : Patient verbalizes self, Patient wristband ID, Patient verbalizes Correct Procedure Site and Side : EGD and Colonoscopy Correct Procedure Site/Side Verified By : Patient/responsible libertarian, Nurse, MD, Allied Health Staff Site Marking : N/A Pre-Procedure Pause Verbal Confirm. of : Procedure, Site, Side, Patient Position, Patient ID, Special Supplies/Equipment SOPHIA TAYLOR RN - 07/16/2013 16:43 INSPECTING MACHINE ADJUSTER Source: [employer] Document Id: [id number] INSPECTING MACHINE ADJUSTER!13 ECTING MACHINE ADJUSTER Jerica Ellison M.D. - 07/16/2013 12:00 AM CST HGIEGD DATE: 07/16/2013 PREOPERATIVE DIAGNOSIS: Chronic diarrhea and weight loss. POSTOPERATIVE DIAGNOSIS: H. Pylori gastritis. SURGEON: Juliano Ellison M.D. OPERATION: Esophagogastroduodenoscopy with biopsy. MEDICATIONS: Versed 4 mg IV; fentanyl 100 mcg IV. PRIMARY PHYSICIAN: Cathy Mccoy M.D. DESCRIPTION OF PROCEDURE: After an informed consent was obtained, the patient was placed in the left lateral decubitus position. IV Versed and fentanyl were given to achieve adequate sedation. An Olympus videoendoscope was inserted into the oral cavity. The endoscope was advanced under directvisualization to the second portion of the duodenum without any difficulty. The duodenal mucosa in the bulb and postbulbar appeared normal. There was no mucosal inflammation, erosion, or ulceration. The postbulbar duodenum was biopsied 4 times for histology to exclude celiac disease. The gastric antrum appeared to have patchy mucosal erythema. Biopsies were obtained for histology toexclude H. pylori infection. There was no ulceration, no erosion, no mass lesion. When the scope wasretroflexed to visualize GE junction, no hiatal hernia, no mass lesion was seen. The GE junction wasseen at approximately 44 cm from the incisors. There was a short segment of Nguyễn esophagus approximately 1 to 2 cm. This was biopsied for histologic analysis. There was no stricture, no ulceration, no mass lesion. IMPRESSION: H. Pylori gastritis. Pathology: SMALL INTESTINE, BIOPSIES (A): --- SMALL INTESTINAL MUCOSA WITHOUT DIAGNOSTIC ABNORMALITY. 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 --- THERE IS FOCAL INTESTINAL METAPLASIA. GASTROESOPHAGEAL JUNCTION, BIOPSIES (C): --- ACTIVE CHRONIC GASTRIC CARDITIS WITH HELICOBACTER ORGANISMS SEEN ON H&E AND DIFF-QUIK STAINS. --- UNREMARKABLE SQUAMOUS MUCOSA. --- THERE IS NO GOBLET CELL METAPLASIA. PLAN: H. Pylori Rx for 10 days. Juliano Ellison M.D./[facility] cc: Cathy Mccoy M.D. [facility] -- [place] [address] [address] (patient) Electronically Signed By: JERICA ELLISON MD On: 07/24/2013 11:28 AM Modified by and Electronically Signed by: JERICA ELLISON MD On: 07/24/2013 11:28 AM Source: [facility] MHSDOLBEYNONRADSYS Document Id: [id number] ECTING MACHINE ADJUSTER Jerica Ellison M.D. - 07/16/2013 12:00 AM CST HGICO DATE: 07/16/2013. PREPROCEDURE DIAGNOSIS: Chronic diarrhea and abnormal weight loss. POSTPROCEDURE DIAGNOSIS: 1. Colonic diverticulosis. ENDOSCOPIST: Juliano Ellison M.D. PROCEDURE: Total colonoscopy and ileoscopy with biopsy. MEDICATIONS: None. PRIMARY PHYSICIAN: Cathy Mccoy M.D. DESCRIPTION OF PROCEDURE: After upper GI endoscopy, the patient was turned around for a total colonoscopy. Additional Versed and fentanyl were given to achieve adequate sedation. An Olympus videocolonoscope was inserted into the rectum. The colonoscope was advanced under direct visualization to the terminal ileum without any difficulty. The terminal ileum and mucosa appeared normal. The visualized mucosa in the cecum, ascending colon, transverse colon, ascending colon, sigmoidcolon and the rectum appeared normal throughout. No polyp, no mass lesion, no colitis was seen throughout the entire colon. Random biopsies were obtained throughout the colon for histology to exclude microscopic colitis. There was 1 diverticulum noted in the ascending colon and several diverticula noted in the sigmoid colon without any inflammation. When the scope was retroflexed to visualize the anal verge, no significant hemorrhoids were seen. The rectum was then decompressed. IMPRESSION: No colonic cause of chronic diarrhea and weight loss. Pathology: COLON, RANDOM BIOPSIES (D): --- COLONIC MUCOSA WITHOUT DIAGNOSTIC ABNORMALITY. PLAN: Follow up in clinic as scheduled. Repeat colonoscopy in 10 years Juliano Ellison M.D./[facility] cc: Cathy Mccoy M.D. [facility] -- [place] [address] [address] - Patient Electronically Signed By: JERICA ELLISON MD On: 07/24/2013 11:29 AM Modified by and Electronically Signed by: JERICA ELLISON MD On: 07/24/2013 11:29 AM Source: [facility] MHSDOLBEYNONRADSYS Document Id: [id number] ECTING MACHINE ADJUSTER documented in this encounter Nursing Notes Mala Logan R.N. - 07/16/2013 10:57 AM CST Day Surgery Admission History/Asmt Adult Day Surgery Admission History/Asmt Adult Entered On: 07/16/2013 10:59 INSPECTING MACHINE ADJUSTER Performed On: 07/16/2013 10:57 INSPECTING MACHINE ADJUSTER by MALA LOGAN RN General Info Admitted From : Non-Health Care Facility Point of Origin Mode of Arrival : Ambulatory Accompanied By : Spouse Preferred Communication Mode : Verbal Information Given By : Patient Languages : Turkmen Have you received chemotherapy in last 48 hours? : No MALA LOGAN RN - 07/16/2013 10:57 INSPECTING MACHINE ADJUSTER Nutrition Nutrition Risk Factors by History Adult : Unintentional weight loss greater than 10 lbs in last 6 months Home Diet : Diabetic Feeding Ability : Complete independence Eating Difficulties : None Appetite : Excellent MALA LOGAN RN - 07/16/2013 10:57 INSPECTING MACHINE ADJUSTER Home Environment Current Daily Living Assistance : None Living Situation : Home independently Home Equipment : Blood glucose monitor Sensory Deficits : None Mobility Assistance Prior to Admission : Independent Current Home Treatments : None Professional Skilled Services : None Special Services and Community Resources : None MALA LOGAN RN - 07/16/2013 10:57 INSPECTING MACHINE ADJUSTER Dependent Habits Tobacco Use/Currently Using : No Tobacco Use/Last 12 months : No Exposure to Tobacco Smoke : Other: non smoker Smoking Status : Never smoker MALA LOGAN RN - 07/16/2013 10:57 INSPECTING MACHINE ADJUSTER Tobacco Use Grid Last Use : Never MALA LOGAN RN - 07/16/2013 10:57 INSPECTING MACHINE ADJUSTER Alcohol Use : No MALA LOGAN RN - 07/16/2013 10:57 INSPECTING MACHINE ADJUSTER Caffeine Use Grid Caffeine Use : Current Type : Coffee Frequency : Daily MALA LOGAN RN - 07/16/2013 10:57 INSPECTING MACHINE ADJUSTER Psychosocial Adult Domestic Abuse Concerns : None Concerns About Family Members at Home : No Emotional Support Available : Yes Coping : Effective Worship Preference : Unknown MALA LOGAN RN - 07/16/2013 10:57 INSPECTING MACHINE ADJUSTER Advance Directive Advanced Directives : No Advance Directive Additional Information : No MALA LOGAN RN - 07/16/2013 10:57 INSPECTING MACHINE ADJUSTER Educ Needs Learning Style Preference Adult Grid Patient : Printed materials, Verbal explanation Family : Printed materials, Verbal explanation MALA LOGAN RN - 07/16/2013 10:57 INSPECTING MACHINE ADJUSTER Outpatient Assessment Procedural Respiratory : Respirations unlabored, Respiratory pattern regular, No cough Procedural Cardiovascular : Heart rhythm regular, Skin color normal for ethnicity, Skin dry and warm Procedural Neurological : Alert, Oriented x 3, Gait steady, No swallowing difficulty/aspiration risk Procedural Gastrointestinal : Abdomen non-tender and soft Procedural Genitourinary : Voiding, no difficulties Procedural Integumentary : Skin integrity intact Procedural Musculoskeletal : Activity tolerance without distress MALA LOGAN RN - 07/16/2013 10:57 INSPECTING MACHINE ADJUSTER Psycho/Emotional Pain Symptoms : No Affect/Behavior : Calm, Cooperative, Appropriate MALA LOGAN RN - 07/16/2013 10:57 INSPECTING MACHINE ADJUSTER Safety Grid Vision, Hearing, Mobility Adequate to Meet Safety Needs : Yes MALA LOGAN RN - 07/16/2013 10:57 INSPECTING MACHINE ADJUSTER Source: [facility] [employer] Document Id: [id number] INSPECTING MACHINE ADJUSTER!64 ECTING MACHINE ADJUSTER documented in this encounter Miscellaneous Notes Miscellaneous - Polo Jean-Baptiste L.PKamilaN. - 07/17/2013 2:45 PM CST crerose From: POLO JEAN-BAPTISTE LPN To: POLO JEAN-BAPTISTE LPN; Sent: 07/17/2013 14:45:20 INSPECTING MACHINE ADJUSTER Subject: creon Fidencio Carmen Flaca in regards to financial assistance. Patient has an appt w/ Dr. Ellison on Mon. Source: [facility] [employer] Document Id: [id number] Electronically signed by Conversion, [facility] Professor Of Art [id number] at 02/08/2017 12:38 AM CDT Miscellaneous - Polo Jean-Baptiste L.P.N. - 07/17/2013 2:42 PM CST insurance Document Contains Addenda Addendum by POLO JEAN-BAPTISTE LPN on 25 July 2013 10:07:20 INSPECTING MACHINE ADJUSTER Juliana London has been notified. Addendum by JUAN LUIS MEZA on 22 July 2013 12:54:06 INSPECTING MACHINE ADJUSTER From: JUAN LUIS MEZA To: POLO JEAN-BAPTISTE LPN; Sent: 07/22/2013 12:54:06 INSPECTING MACHINE ADJUSTER Subject: RE: insurance Yes. Please speak to Juliana London (medication therapy management) pharmacist at [phone] in regards to this patient. She know all the programs for medication assistance and can assist. Please let me know if futher assistance is needed. Thank you for much. Carmen Meza From: POLO JEAN-BAPTISTE LPN To: JUAN LUIS MEZA; Sent: 07/17/2013 14:42:42 INSPECTING MACHINE ADJUSTER Subject: insurance Patient has Care. He just had a colonoscopy 07-16-13. Dr. Ellison has ordered Creon 36,000units 3x daily. This is the initial dose, Dr. Ellison has suggested that he may need to increase it to 3 tabs 3x daily.Yesterday he picked up the first prescription that cost him 296.48 cents out of pocket for the month. I contacted the the insurance there is not a generic that is covered by his formulary. The patient has already called [facility] today to see if he may qualify for some assistance programs. Do wehave any other tools for this patient in order for him to continue this medication? Thank you [facility] Document Id: [id number] Electronically signed by Conversion, [facility] Professor Of Art [id number] at 02/08/2017 12:38 AM CDT Miscellaneous - Jerica Ellison M.D. - 07/16/2013 12:07 PM CST Ambulatory Patient Summary [address] Visit Information Name: [address] Number: [id number] Current Date: 07/16/2013 12:07:13 Physicians Attending Provider: JERICA ELLISON MD Primary [...] medications. Medication/Strength Dose Route Frequency Indications/Special Instructions/Comments/Notes pancrelipase (Creon 36,000 units oral delayed release capsule) 1 cap(s) Oral three times a day with meals insulin lispro protamine-insulin lispro (Humalog Mix 75/25 subcutaneous suspension) See [id number] units bid gemfibrozil (gemfibrozil 600 mg oral tablet) 600 mg Oral two times a day emollients, topical (Lubricating Jelly topical gel) 1 cecile Topical two times a day sodium chloride nasal (Saline Nasal Mist nasal spray) 2 spray(s) Nostrils(Both) four times a day as needed for Dry nasal passages *Misc Prescription (Misc Prescription) phenylephrine omega-3 polyunsaturated fatty [...] prescribed the medication as soon as possible. Attention: If you have any medications at [...] cancer Active Chronic pancreatitis NOS Active 07/16/2013 Your Upcoming Appointments Date Time Location Reason Provider 07/24/2013 10:45 [facility] GI/Hep Abnormal weight loss Efrain Ellison MD Attention: Contact your local Clinic if further appointment detail needed. Your Goals/Additional instructions: Source: [facility] POWERCHART Document Id: [id number] ECTING MACHINE ADJUSTER Miscellaneous - Jerica Ellison M.D. - 07/16/2013 12:07 PM CST Ambulatory Depart Summary [address] Visit Information Name: [address] [facility] Number: [id number] Visit Date: 07/16/2013 12:07:12 Attending Provider: JERICA ELLISON MD Primary Care [...] medications. Medication/Strength Dose Route Frequency Indications/Special Instructions/Comments/Notes pancrelipase (Creon 36,000 units oral delayed release capsule) 1 cap(s) Oral three times a day with meals insulin lispro protamine-insulin lispro (Humalog Mix 75/25 subcutaneous suspension) See [id number] units bid gemfibrozil (gemfibrozil 600 mg oral tablet) 600 mg Oral two times a day emollients, topical (Lubricating Jelly topical gel) 1 cecile Topical two times a day sodium chloride nasal (Saline Nasal Mist nasal spray) 2 spray(s) Nostrils(Both) four times a day as needed for Dry nasal passages *Misc Prescription (Misc Prescription) phenylephrine omega-3 polyunsaturated fatty [...] prescribed the medication as soon as possible. Attention: If you have any medications at home that are not on this list, DO NOT take them until youcontact your provider for clarification. Additional Information: Source: [facility] POWERCHART Document Id: [id number] ECTING MACHINE ADJUSTER Miscellaneous - Conversion, Historical Provider Ser - 06/26/2013 1:[address] Ellison - results Document Contains Addenda Addendum by POLO JEAN-BAPTISTE LPN on 27 June 2013 15:31:[address] CD[address] notified of CT and labs. Patient verbalized understanding. Combo scheduled in Jun with Dr. Ellison Addendum by POLO JEAN-BAPTISTE LPN on 26 June 2013 15:19:52 CDT LMTCB Addendum by TIGRE ALBERTO LPN on 26 June 2013 14:11:46 CDT From: TIGRE ALBERTO LPN ([facility] Nurse) To: POLO JEAN-BAPTISTE LPN; Sent: 06/26/2013 14:11:46 CDT Subject: FW: Dr Ellison - results Could you please address? From: HAYDEE PICKARD To: [facility] Nurse; Sent: 06/26/2013 13:49:04 CDT Subject: Dr Ellison - results If you need a prescription refill please call your pharmacy. Please allow 3 business days for processing. Call Center Template: ?? May we leave a message for you on this phone? ?? What can I help you with today? -Please call patient back with results from previous test. ?? If Medication Refill: o What is the medication? o What pharmacy do you use? o Have you contacted your pharmacy regarding this request? I will send this information to the appropriate staff member who will look into your concern. Someone will call you back within 4 business hours.. Thank you for calling [facility]. Source: [facility] POWERCHART Document Id: [id number] documented in this encounter Plan of Treatment Not on filedocumented as of this encounter Procedures Procedure Name Priority Date/Time Associated Diagnosis Comme nts SURGICAL PATHOLOGY Routine 07/16/2013 2:32 PM Res ults for this INSPECTING MACHINE ADJUSTER procedure are i n the results section. documented in this encounter Results Pathology Surgical Pathology (07/16/2013 2:32 PM INSPECTING MACHINE ADJUSTER) Specimen (Source) Anatomical Collection Method Collection Time Re ceived Time Location / / Volume Laterality 07/16/2013 2:32 PM INSPECTING MACHINE ADJUSTER Narrative [facility] - 07/17/2013 10:22 AM INSPECTING MACHINE ADJUSTER [facility] in [address] [place] [address] Patient Name: [facility] [facility] Patient ID #: [id number] Collected: 07/16/2013 Address: [facility]/State/Zip: [address] [place], [place] ??[phone] Received: Reported: 07/16/2013 07/17/2013 Soc. Sec. #: [id number] ?? DO B/Age/Sex 1945 (Age: 68) ??M Physician(s): MUNA ELLISON MD Copy To: ? [facility] IN [facility] ??[id number] [place] [address], ??[place] ??[id number] SURGICAL PATHOLOGY REPORT FINAL DIAGNOSIS: SMALL INTESTINE, BIOPSIES (A): --- SMALL INTESTINAL MUCOSA WITHOUT DIAG NOSTIC ABNORMALITY. GASTRIC BIOPSIES (B): --- MODERATE ACTIVE CHRONIC GASTRITIS WI TH MANY HELICOBACTER ORGANISMS SEEN ON H&E AND DIFF-QUIK STAINS. --- THERE IS FOCAL INTESTINAL METAPLASIA . GASTROESOPHAGEAL JUNCTION, BIOPSIES (C): --- ACTIVE CHRONIC GASTRIC CARDITIS WITH HELICOBACTER ORGANISMS SEEN ON H&E AND DIFF-QUIK STAINS. --- UNREMARKABLE SQUAMOUS MUCOSA. --- THERE IS NO GOBLET CELL METAPLASIA. COLON, RANDOM BIOPSIES (D): --- COLONIC MUCOSA WITHOUT DIAGNOSTIC AB NORMALITY. [facility]/07/17/2013 HAYDEE SMALL M.D. Report electronically released. Interpretation by HAYDEE SMALL M.D. SPECIMEN(S) RECEIVED: 1: A. SMALL BOWEL (R/O CELIAC) 2: B. STOMACH (R/O H. PYLORI) 3: C. GE JUNCTION (R/O NGUYỄN'S) 4: D. RANDOM COLON (R/O MICROSCOPIC COLI TIS) CLINICAL HISTORY: EGD / COLONOSCOPY GROSS DESCRIPTION: A. Submitted as small bowel. Received in formalin are two cho mucosal fragments aggregating to 0.6 cm in greatest dimension. ESB, one cassette. B. Submitted as stomach. Received in for rebecca are multiple cho mucosal fragments aggregating to 0.5 cm in greatest dimension. ESB, one cassette. C. Submitted as GE junction. Received in formalin are two cho mucosal fragments aggregating to 0.4 cm. ESB, one cassette. D. Submitted as random colon. Received i n formalin are multiple cho mucosal fragments aggregating to 1 cm. ESB, one cassette. ([id number], [id number], [id number]) [facility]/07/16/2013 MICROSCOPIC DESCRIPTION: CONTROLS REVIEWED; RESULTS ACCEPTABLE. Reviewed by Haydee Small M.D.; Patholo gist [facility]/07/17/2013 Jerica Ellison M.D. LAB SURG PATH ORDERABLES Performing Organization Address City/State/ZIP Code Phon e Number [facility] documented in this encounter Visit Diagnoses Not on filedocumented in this encounter
--- OUTSIDE RECORDS SUMMARY | 2022-05-24 18:29 | XMS_ITS | Encounter Summary ---
:1945 Author Organization [facility] Address [address] [place] [address] Care Team Providers Name Role Phone Unavailable Primary Care Provider Unavailable Encounter Details Date Type Department Care Team Description 08/23/[address] [facility] [place] [facility] Nikia Rosenthal M.D. Social History Tobacco Use [...] More than 4 times per year 06/14/2019 [facility]? Do you belong to any clubs [...] Reading Time Taken Comments Blood Pressure 100/60 08/23/2013 10:23 AM CHILD CARE SUPERVISOR Pulse 72 08/23/2013 10:23 AM CHILD CARE SUPERVISOR Temperature - - Respiratory Rate 20 08/23/2013 10:23 AM CHILD CARE SUPERVISOR Oxygen Saturation - - Inhaled Oxygen Concentration - - Weight 105 kg (231 lb 7.7 oz) 08/23/2013 10:23 AM CHILD CARE SUPERVISOR Height 194 cm (6' 4.38) 08/23/2013 10:23 AM CHILD CARE SUPERVISOR Body Mass Index 27.9 08/23/2013 10:23 AM CHILD CARE SUPERVISOR documented in this encounter Medications at [...] [place] SUBSALICYLATE Take by mouth as 0 03/13/2004/01/2019 ORAL needed. documented as of this encounter Progress Notes Nikia Mccoy M.D. - 08/23/2013 10:18 AM CST [id number] CHIEF COMPLAINT/REASON FOR VISIT A 68-year-old male here for diabetic check. HISTORY OF PRESENT ILLNESS His blood glucoses have been running anywhere from 45 to 350; most are between 260 and 280. When he is working they are lower, more in the area of 77 to 170. We suggested maybe walking more to have more consistency and he is doing Silver Sneakers. He has also been diagnosed with chronic pancreatitis and that has been affecting his diabetes. He is on Creon now and he seems to be doing better. This allstarted back in October with a rash and his insulin was more resistant. During the summer he got more diarrhea and gassiness. He evidently needs a yearly MRI for surveillance and Dr. Sam is following this, and these things improved since he has bee on Creon. He also mentioned that he had a cyst or abs cess of the right mons pubis. Evidently a couple weeks ago he opened it and now it is quite small. PAST MEDICAL/SURGICAL HISTORY Acute myocardial infarction, arterial stent, cardiac arrest, chronic pancreatitis, coronary artery disease, diabetes, gout, H. pylori, hypertension, hyperlipidemia and skin cancer. He had a colonoscopyin 2012, gastroscopy in 2012 and excision of a calcaneal spur in 2006. FAMILY HISTORY Diabetes, cataracts, cancer, renal stone, glaucoma, coronary artery disease and sleep apnea. SOCIAL HISTORY He is not a smoker. He drinks coffee daily. MEDICATIONS Reviewed and reconciled on EMR. He is on Humalog mix 75/25, and we had him up in the 80s, but now heis taking 43 twice a day. ALLERGIES To: PENICILLIN. LIPITOR. BEE STINGS. CLINDAMYCIN. ADHESIVE BANDAGES. ASPIRIN. SYSTEMS REVIEW HEENT: He had a little bit of a sore throat yesterday and bloody nose. He uses saline and he does have some Flonase he is going to start using. CHEST: No shortness of breath or cough. CARDIOVASCULAR: No chest pain or palpitations. SKIN: Dry. GENERAL: He has lost 40 pounds since the diagnosis of chronic pancreatitis. See HPI. GASTROINTESTINAL: He stools 3 or 4 times a night; that is improved. PSYCHIATRIC: No depression or anxiety. ENDOCRINE: No increased thirst, urination, heat or cold intolerance. MUSCULOSKELETAL: Having some charley horses lately. NEUROLOGIC: No numbness or tingling. VITAL SIGNS Blood pressure 100/60, pulse 72, respirations 20, temperature 36.4, weight 105 kg, height 194 cm. PHYSICAL EXAMINATION CHEST: Clear to auscultation bilaterally. CARDIOVASCULAR: Regular rate and rhythm. No murmur. ABDOMEN: Soft, plus bowel sounds. Nontender. EXTREMITIES: Without edema. IMPRESSION/REPORT/PLAN 1. Chronic pancreatitis. 2. Diabetes. PLAN: We discussed going on Lantus and sliding scale short-acting insulin, but he prefers to stay where he is at right now. I will check a lipid, AST, hemoglobin A1c, and microalbumin and we will contact him with results. ADMINISTRATIVE BILLING Total time spent was 25 minutes, with 20 minutes in counseling and coordination of care. Nikia Mccoy M.D./pos Electronically Signed By: NIKIA MCCOY MD On: 03/18/2014 06:08 PM Source: [facility] MHSDOLBEYNONRADSYS Document Id: [id number] documented in this encounter Miscellaneous Notes Miscellaneous - Nikia Mccoy M.D. - 08/28/2013 5:40 PM CST Normal Results Letter 28 August 2013 JORGEBRANT CHANCE [id number] [facility] [id number] Dear JORGE CHANCE, I am pleased to report that your results from the following diagnostic test(s) are normal. Please follow up with us as we discussed during your visit or sooner if you have any concerns. If you have questions or concerns, please do not hesitate to call our office. Result Name Current Result Normal Range U Protein Dip Negative 08/23/2013 Negative - Sincerely, NIKIA MCCOY [address] [place] [address] Electronic Signature Electronically Signed By: NIKIA MCCOY MD On: 28 August 2013 This document has images extracted. Source: [email or web address] Document Id: [id number] Amor - Nikia Mccoy M.D. - 08/23/2013 2:40 PM CST Normal Results Letter 23 August 2013 JORGE OFELIA [address] [facility] [id number] Dear JORGE CHANCE, I am pleased to report that your results from the following diagnostic test(s) are normal. Please follow up with us as we discussed during your visit or sooner if you have any concerns. If you have questions or concerns, please do not hesitate to call our office. Goal is under 7 for hgba1c. Result Name Current Result Previous Result Normal Range Hgb A1c (%) (H) 7.1 08/23/2013 (H) 7.9 01/10/2013 4.0 - 6.0 Sincerely, NIKIA MCCOY [address] [place] [address] Electronic Signature Electronically Signed By: NIKIA MCCOY MD On: 23 August 2013 This document has images extracted. Source: [email or web address] Document Id: [id number] Electronically signed by Conversion, [facility] Boring Inspector [id number] at 02/08/2017 1:26 PM CDT Miscellaneous - Nikia Mccoy M.D. - 08/23/2013 11:20 AM CST Ambulatory Patient Summary [facility] [address] [place] [address] Visit Information Name: JORGE CHANCE [facility] Number: [id number] Current Date: 08/23/2013 11:20:34 Physicians Attending Provider: NIKIA MCCOY MD Primary [...] Topical, two times a day epinephrine (EpiPen 2-Yevs 0.3 mg injectable kit) 0.3 mg, Intramuscular, once fluocinonide topical (Lidex 0.05% topical solution) 1 cecile, Topical, two times a day Routed to [address] [id number] fluticasone nasal (fluticasone nasal 0.05 mg/inh spray) 2 Hope(s), Nasal, once a day PLEASE USE YOU WERE SHOWN IN THE OFFICE SO TO AVOID THE MIDDLE SEPTUM Routed to [place] [address] [place] [address] gemfibrozil (gemfibrozil 600 mg oral tablet) 1 Tablet(s), Oral, two times a day indomethacin (indomethacin 25 mg oral capsule) 1 cap, Oral, three times a day as needed for Pain Take with food insulin lispro protamine-insulin lispro (Humalog Mix 75/25 subcutaneous suspension) See [id number] units bid Routed to [facility] [address] [place] [address] lisinopril (lisinopril 5 mg oral tablet) 1 [...] Oral, three times a day with meals new Rx for 3 months supply phenylephrine (phenylephrine hydrochloride 10 mg oral tablet) 1 Tablet(s), Oral, every 4 hours as needed for allergies phenylephrine nasal (phenylephrine 0.5% nasal spray) as needed for allergies sodium chloride nasal (Saline Nasal Mist nasal spray) 2 Hope(s), Nostrils(Both), four times a day as needed for Dry nasal passages triamcinolone topical (Kenalog in Orabase 0.1% mucous membrane paste) 1 cecile, Topical, four times a day as needed for tooth pain Stop Taking the Following Medications: Medication list as of 08-23-13 11:20 Attention: If you have any medications at [...] appointment detail needed. Your Goals/Additional instructions: [facility] [employer] Document Id: [id number] D CARE SUPERVISOR Miscellaneous - Nikia Mccoy M.D. - 08/23/2013 11:20 AM CST Ambulatory Depart Summary [address] [address] Visit Information Name: JORGE CHANCE MJ [facility] Number: [id number] Visit Date: 08/23/2013 11:20:26 Attending Provider: NIKIA MCCOY MD Primary Care [...] Topical, two times a day Routed to [address] [address] fluticasone nasal (fluticasone nasal 0.05 mg/inh spray) 2 Hope(s), Nasal, once a day PLEASE USE YOU WERE SHOWN IN THE OFFICE SO TO AVOID THE MIDDLE SEPTUM Routed to [address] [address] gemfibrozil (gemfibrozil 600 mg oral tablet) 1 Tablet(s), Oral, two times a day indomethacin (indomethacin 25 mg oral capsule) 1 cap, Oral, three times a day as needed for Pain Take with food insulin lispro protamine-insulin lispro (Humalog Mix 75/25 subcutaneous suspension) See [id number] units bid Routed to [address] [address] lisinopril (lisinopril 5 mg oral tablet) 1 [...] Oral, three times a day with meals new Rx for 3 months supply phenylephrine (phenylephrine hydrochloride 10 mg oral tablet) 1 Tablet(s), Oral, every 4 hours as needed for allergies phenylephrine nasal (phenylephrine 0.5% nasal spray) as needed for allergies sodium chloride nasal (Saline Nasal Mist nasal spray) 2 Hope(s), Nostrils(Both), four times a day as needed for Dry nasal passages triamcinolone topical (Kenalog in Orabase 0.1% mucous membrane paste) 1 cecile, Topical, four times a day as needed for tooth pain Stop Taking the Following Medications: Medication list as of 08-23-13 11:20 Attention: If you have any medications at [...] emergency. Additional Information: Yes - . Source: [facility] POWERCHART Document Id: [id number] D CARE SUPERVISOR Miscellaneous - Juan Luis Keen L.P.N. - 08/23/2013 10:23 AM CST Adult Loan Manager Intake/History Adult Loan Manager Intake/History Entered On: 08/23/2013 10:32 CHILD CARE SUPERVISOR Performed On: 08/23/2013 10:23 CHILD CARE SUPERVISOR by JUAN LUIS KEEN LPN Intake Chief Complaint : diabetic check Temperature Core : 36.4 DegC(Converted to: 97.5 DegF) (LOW) Peripheral Pulse Rate : 72 /min Respiratory Rate : 20 /min Systolic Blood Pressure : 100 mmHg Diastolic Blood Pressure : 60 mmHg NIBP Mean : 73 mmHg BP Location : Left upper extremity Blood Pressure Cuff Size : Large Height : 194 cm(Converted to: 6 ft 4 inch(es), 76.38 inch(es)) Actual Weight : 105 kg(Converted to: 231 lb 8 oz) Dosing Weight Clinic : 105 kg Clinic BSA : 2.38 Body Mass Index : 27.9 kg/m2 JUAN LUIS KEEN LPN - 08/23/2013 10:23 CHILD CARE SUPERVISOR General Info Information Given By : Patient Preferred Communication Mode : Verbal Languages : Burkinan JUAN LUIS KEEN LPN - 08/23/2013 10:23 CHILD CARE SUPERVISOR Subjective Pain Symptoms : No JUAN LUIS KEEN LPN - 08/23/2013 10:23 CHILD CARE SUPERVISOR Dependent Habits Tobacco Use/Currently Using : No Exposure to Tobacco Smoke : Other: non smoker Smoking Status : Never smoker JUAN LUIS KEEN [facility] - 08/23/2013 10:23 CHILD CARE SUPERVISOR Tobacco Use Grid Last Use : Never JUAN LUIS KEEN [facility] - 08/23/2013 10:23 CHILD CARE SUPERVISOR Caffeine Use Grid Caffeine Use : Current Type : Coffee Frequency : Daily JUAN LUIS KEEN [facility] - 08/23/2013 10:23 CHILD CARE SUPERVISOR Source: [facility] POWERCHART Document Id: [id number] CHILD CARE SUPERVISOR!34 D CARE SUPERVISOR documented in this encounter Plan of Treatment Not on filedocumented as of this encounter Procedures Procedure Name Priority Date/Time Associated Diagnosis Comme nts ALBUMIN, RANDOM, U Routine 08/23/2013 11:53 AM Re sults for this CHILD CARE SUPERVISOR procedure are i n the results section. HEMOGLOBIN A1C, B Routine 08/23/2013 11:53 AM Res ults for this CHILD CARE SUPERVISOR procedure are i n the results section. documented in this encounter Results (ABNORMAL) Hemoglobin A1c (08/23/2013 11:53 AM CHILD CARE SUPERVISOR) P athologist Signature Hemoglobin A1c, 7.1 (H) 4.0 - 6.0 POWERCHART B Specimen (Source) Anatomical Collection Method Collection Time Re ceived Time Location / / Volume Laterality Blood 08/23/2013 11:53 AM CHILD CARE SUPERVISOR Nikia Mccoy M.D. LAB BLOOD ADD-ON Performing Organization Address City/State/ZIP Code Phon e Number POWERCHART (ABNORMAL) Microalbumin, Random, Urine (08/23/2013 11:53 AM CHILD CARE SUPERVISOR) Patholo gist Method Time Signature Protein, Ur, Negative Negative POWERCHART Dip HXU Albumin % 33 MGL POWERCHART Creatinine, 96 39 - 259 POWERCHART Random, U MGDL Comment: No established reference values for random urine samples. Albumin/Creatinine Ratio 34 (H) 0 - 19 MGGM POW ERCHART Specimen (Source) Anatomical Collection Method Collection Time Re ceived Time Location / / Volume Laterality Urine 08/23/2013 11:53 AM CHILD CARE SUPERVISOR Nikia Mccoy M.D. LAB URINE ORDERABLES Performing Organization Address City/State/ZIP Code Phon e Number POWERCHART documented in this encounter Visit Diagnoses Not on filedocumented in this encounter
--- OUTSIDE RECORDS SUMMARY | 2022-05-24 18:29 | XMS_ITS | Encounter Summary ---
:1945 Author Organization [facility] Address [address] [place] [address] Care Team Providers Name Role Phone Unavailable Primary Care Provider Unavailable Encounter Details Date Type Department Care Team Description 06/22/2013 Hospital Encounter HX [facility] Sergio Walton M.D. [address] [place] [address] (Wo rk) Social History Tobacco Use Types [...]
--- OUTSIDE RECORDS SUMMARY | 2022-05-24 18:29 | XMS_ITS | Encounter Summary ---
:1945 Author Organization [facility] Address [address] [place] [address] Care Team Providers Name Role Phone Unavailable Primary Care Provider Unavailable Encounter Details Date Type Department Care Team Description 04/28/2011 Hospital Encounter HX [facility] Saavedra, kathy L, ASPHALT MIXER, C.N.P., [address] [place], [place] [address] (Wo rk) Social History Tobacco Use Types [...] SUBSALICYLATE ORAL Take by mouth as 0 07/ 11/2008 04/01/2019 needed. documented as of this encounter Progress Notes Lauren Garcia APRN, CKamilaNKamilaP. - 04/28/2011 2:35 PM CDT DATE OF SERVICE: 04/28/2011 REASON FOR VISIT History of nosebleeds. HISTORY OF PRESENT ILLNESS This is a 66-year-old male who comes in as he states he has been having several nosebleeds the past 4 days from his right nostril. He states that he has been able to stop the nosebleeds but he is getting frustrated with this. He also had several nosebleeds today which brought him to urgent care. He states that in the past on January 18, he saw Dr. Naranjo, the ENT, over in [place] who actually did a cautery of the right anterior nares which it seemed to hold him for a couple months. He is having the samesymptoms again in the same area with the same type of blood flow when the bleeding starts. The patient states he had been doing fine but he bent over today to pick something up and he noticed a gush ofblood from the right anterior nares and then again had to place a lot of pressure on the nose for many minutes and then did actually put some tissue up there to pack it himself which finally stopped the bleeding. This gentleman states his blood pressure has been controlled on lisinopril. He is on no blood thinners except for baby aspirin every day that he takes. He is diabetic and is oral metformin and also has history of gout and is on allopurinol at this time. PAST MEDICAL, FAMILY, AND SOCIAL HISTORY Medical: I have reviewed, reconciled, and listed all. MEDICATIONS I have reviewed, reconciled, and listed all. ALLERGIES I have reviewed, reconciled, and listed all. EXAMINATION GENERAL: A 66-year-old male in no acute distress. VITALS: Temperature 35.6. Pulse rate 60. Respiratory rate 24. Blood pressure 108/70. HEENT: Head: Normocephalic, atraumatic. Eyes: Equal, round, and reactive to light and accommodation.Nares: Patent bilaterally. Tympanic membranes: Clear bilaterally. Nares: Patient has some tissue packing in his right nares at this time. No pain or distress or any current bleeding noted. Mucous membranes: Moist and intact. No exudate or erythema noted in the throat. CHEST: Lung sounds clear in all oquendo. HEART: Sounds S1, S2 auscultated. No murmurs, clicks, or gallops noted. IMPRESSION/REPORT/PLAN Epistaxis. I did call ENT to see if we could get this gentleman in earlier over in [place] to be assessed for recurrent nosebleeds and possible cautery or repair. As this is not an emergent appointment, we were able to get him in next week, next , with Charline the nurse practitioner over in [place]. That is the soonest appointment that we can get this patient in to. Also, we instructed that he should use saline rinses of his nares and use a nasal plug/clamp as needed for nosebleed so we instructed the patient on this care and I did give him a clamp and I instructed him to slate picker some nasal wash that hecan use in the nares if he does start bleeding again. He will follow up with the nurse practitioner next in [place], and he has no further questions and is happy with this plan of care. ELEAZAR:miguel angel Doc#: [id number] Electronically Signed By: LAUREN GARCIA PATTERN FINISHER On: 05/02/2011 08:59 am Modified by and Electronically Signed by: LAUREN GARCIA PATTERN FINISHER On: 05/02/2011 08:59 am Source: [facility] ISJDICTAPHONESYS Document Id: [id number] documented in this encounter Miscellaneous Notes Miscellaneous - Mckenna Kelly, L.P.N. - 04/28/2011 2:38 PM CDT Adult Publisher Assistant Intake/History Adult Publisher Assistant Intake/History Entered On: 04/28/2011 14:44 CDT Performed On: 04/28/2011 14:38 CDT by MCKENNA KELLY PROPERTY MAN Intake Chief Complaint: Complaining of nose bleeds past 4 days from Rt nostril history of cauterization of same nostril in January or February of this year.Several nose bleeds today. Temperature Core: 35.6C(Converted to: 96.1DegF) (LOW) Peripheral Pulse Rate: 60/min Respiratory Rate: 24/min (HI) Systolic Blood Pressure: 108mmHg Diastolic Blood Pressure: 70mmHg NIBP Mean: 83mmHg BP Location: Right upper extremity Heart Rhythm: Regular Oxygen Therapy: Room air MCKENNA KELLY KIMBERLY - 04/28/2011 14:38 CDT Subjective Pain Symptoms: Yes MCKENNA KELLY KIMBERLY - 04/28/2011 14:38 CDT Pain Pain Assessment Grid Pain 1 Location: Knee Laterality: Left Intensity: 2 MCKENNA KELLY KIMBERLY - 04/28/2011 14:38 CDT Dependent Habits Tobacco Use/Currently Using: No Exposure to Tobacco Smoke: Other: non smoker MCKENNA KELLY KIMBERLY - 04/28/2011 14:38 CDT Allergy Allergies (Active) Bee Stings Estimated Onset Date: Unspecified ; Created By: AMANDEEP BURRELL LPN; Reaction Status: Active ; Category: Environment ; Substance: Bee Stings ; Updated By: AMANDEEP BURRELL LPN; ReviewedDate: 04/28/2011 14:38 CDT clindamycin Estimated Onset Date: Unspecified ; Created By: AMANDEEP BURRELL LPN; Reaction Status:Active ; Category: Drug ; Substance: clindamycin ; Updated By: AMANDEEP BURRELL LPN; Reviewed Date: 04/28/2011 14:38 CDT Lipitor Estimated Onset Date: Unspecified ; Reactions: Chest Pain:Pressure/Tightness ; Created By: AMANDEEP BURRELL LPN; Reaction Status: Active ; Category: Drug ; Substance: Lipitor ; Type: Allergy ; Updated By: AMANDEEP BURRELL LPN; Reviewed Date: 04/28/2011 14:38 CDT penicillin Estimated Onset Date: Unspecified ; Reactions: Hives, SOB - Shortness of breath ; CreatedBy: AMANDEEP BURRELL LPN; Reaction Status: Active ; Category: Drug ; Substance: penicillin ; Type:Allergy ; Updated By: AMANDEEP BURRELL LPN; Reviewed Date: 04/28/2011 14:38 CDT Source: [facility] POWERCHART Document Id: [id number] CDT!23 documented in this encounter Plan of Treatment Not on filedocumented as of this encounter Visit Diagnoses Not on filedocumented in this encounter
--- OUTSIDE RECORDS SUMMARY | 2022-05-24 18:29 | XMS_ITS | Encounter Summary ---
:1945 Author Organization [facility] Address [address] [place] [address] Care Team Providers Name Role Phone Unavailable Primary Care Provider Unavailable Encounter Details Date Type Department Care Team Description 05/05/2011 Hospital Encounter HX [facility] Oziel Solis A.R.NKeren., R.N. [address] [place] [address] (Wo rk) Social History Tobacco Use Types [...] 11/200804/01/2019 needed. documented as of this encounter Consult Notes Oziel Owens A.R.N.P. - 05/05/2011 10:23 AM CDT OTORHINOLARYNGOLOGY REQUESTING PROVIDER Cathy Mccoy M.D. CONSULTING Oziel Owens N.P. DATE OF CONSULTATION 05/05/2011 TYPE OF VISIT Otolaryngology new patient consultation. REASON FOR VISIT Epistaxis from the right naris. HISTORY OF PRESENT ILLNESS Mr. Chance is a 66-year-old gentleman who presents to the ENT clinic reporting that he had had nosebleeds in the spring. He actually was treated in [place] by having the right nostril cauterized in January. He then had no further nose bleeding until April 26 of this year, when he bent over while at work and suddenly gushed blood from the right nostril. He has been sticking wads of tissue in the nose to keep it from bleeding. He indeed presents today with such a nasal packing in place. He denies a history of facial trauma, has never had a broken nose that he is aware of. No sinus surgeries. As a child he had no recurrent ear, nose, throat infections. He has been breathing no unu sual fumes. He has been exposed to no particular acoustic noise trauma. PAST MEDICAL, FAMILY AND SOCIAL HISTORY Medical: Significant for: 1. Cardiac arrest with coronary artery disease. He has had 4 stents placed. 2. Hypertension. 3. Type 2 diabetes. 4. Gout. 5. Hyperlipidemia. Surgical: He has had a skin cancer removed from his face. Family: History of colon cancer and sleep-disordered breathing. Family history of diabetes, glaucoma, cataracts and renal disease. His brother has frequent nosebleeds. There are no bleeding or clottingdisorders in the females that he is aware of, and no early hearing loss. Social: He is . He never chewed. He quit smoking 40 years ago. Alcohol exposure none x15 years. Immunizations: Said to be up-to-date. DIAGNOSTIC DATA His last hemoglobin A1c in February 2011 was 7.8%. He has elevated triglycerides, but a cholesterol of 182. His CBC in February showed normal hemoglobin, hematocrit and white blood cell count with normal platelet count of 226,000 His creatinine is 1.0. MEDICATIONS 1. Allopurinol 100 mg 1 tablet daily. 2. Viagra 50 mg 1 tablet p.r.n., which he states he has not used in several months. 3. Nitroglycerin p.r.n. 4. Metoprolol 25/12.5 mg one-half tablet 2 times a day. 5. Metformin 1000 mg 2 times a day. 6. Lisinopril 5 mg 1 tab daily. 7. Lispro insulin as directed 60 units in the a.m., 50 in the p.m. 8. Gemfibrozil 600 mg 1 tablet b.i.d. 9. Topical steroid cream p.r.n. 10. Allopurinol 100 mg daily. 11. Albuterol 90 mcg inhalation 2 puffs q.4 h. p.r.n. shortness of breath. 12. Ibuprofen p.r.n. 13. Pepto-Bismol p.r.n. 14. Aspirin 81 mg 1 tablet on a daily basis. ALLERGIES Include: 1. ADHESIVE TAPE, BEE STINGS, CLINDAMYCIN, PENICILLIN. (All of which cause a rash.) 2. LIPITOR causes chest pain. REVIEW OF SYSTEMS Negative with the exception of the above, as well as restless sleep, snoring and witnessed pauses inhis breathing, so advised by his . Negative for easy bruising. EXAMINATION GENERAL: Today, Mr. Fergusonstadt very pleasant 56-year-old male, mildly overweight. He is in no pain. VITAL SIGNS: Blood pressure is 136/84. His temp is 36.4 Celsius. His weight is 119.7 kg. HEENT: Head is normocephalic, atraumatic. Facial nerve is intact bilaterally. His voice is normal. His ears are normally placed, tragus and mastoids are nontender. Ear canals are clear bilaterally. Tympanic membranes appear normal with no middle ear space fluid. His oral mucosa is moist. His teeth arein need of some cleaning. He is class 3 Mallampati oral airway. His tonsils are not enlarged. His uvula is midline and lengthy. Examination of nose shows an area of scarring at the right septum plexus region. There is no sign of active bleeding there. I see no sign of active bleeding or obstruction ineither nasal canal. NECK: Supple without masses or lymphadenopathy. PROCEDURE Flexible laryngoscopy. Indications, side effects, and complications were reviewed in detail with he and his . His questions were answered to his apparent satisfaction and he agreed to proceed. Local anesthesia in the form of Afrin 1:1 with 1% lidocaine was applied generously to both nares. After ap propriate waiting interval of 10 minutes flexible laryngoscope was advanced via the right naris. White scarring noted in the plexus area on the right septum with no sign of septal perforation or activebleeding. Turbinates are hypertrophied bilaterally. There are no visible lesions or polyps. Attention was then turned to the left naris, and no sign of bleeding or obstructive lesions were noted. The posterior pharynx is erythematous. The vocal cords were visualized and are inflammed mildly with active refluxing. Cords come together nicely with no sign of obstruction, or lesions. IMPRESSION/REPORT/PLAN 1. Epistaxis. 2. Bilateral nasal turbinate hypertrophy. 3. GERD 4. Sleep distubance with reports of snoring and pauses in breathing PLAN Nasal steroid 2 sprays to each nostril daily. He was advised how to use the steroid appropriately soas to avoid spraying towards the middle septum. He states his understanding of that. Aspirin, allopurinol, Pepto bismol, and NSAIDS may contribute to epistaxis.Discuss these with ;critical access hospitalary care. Would not necessarliy recommend stopping the aspirin or allopurinol. Recommend an ointment such as bacitracin applied to the nasal septum on a t.i.d. basis for at least 1 week's time for moisture and again if nose bleeds again. Recommended nasal saline rinses 3 times a day, starting tomorrow. Keep night time air humidified. First aid for proper nose bleed control reviewed with he and . For GERD, omeprazole 20 mg one-half hour before breakfast and before supper. He would like to discuss that with his primary care provider stating, I am already on too many medications. Lifestyle, diet and weight loss discussed. I also strongly encouraged him to undergo a sleep study, and I offered to order that for him. Return in 6 weeks, sooner for problems. DARA:leonides Doc#: [id number] cc: Cathy Mccoy M.D. Electronically Signed By: OZIEL OWENS NP On: 05/13/2011 01:51 pm Modified by and Electronically Signed by: OZIEL OWENS NP On: 05/13/2011 01:51 pm [facility] ISJDICTAPHONESYS Document Id: [id number] documented in this encounter Miscellaneous Notes Miscellaneous - Annika Vieira - 05/05/2011 11:40 AM CDT Adult Registered Appraiser Intake/History Adult Registered Appraiser Intake/History Entered On: 05/05/2011 11:44 CDT Performed On: 05/05/2011 11:40 CDT by ANNIKA VIEIRA LPN Intake Chief Complaint: New patient is here for frequent nosebleeds. Referred by Beba Hathaway Ambulatory Intake Additional Information: PCP- Dr. Cathy Mccoy Temperature Core: 36.4C(Converted to: 97.5DegF) (LOW) Systolic Blood Pressure: 136mmHg Diastolic Blood Pressure: 84mmHg NIBP Mean: 101mmHg BP Location: Left upper extremity Actual Weight: 119.700kg(Converted to: 263lb 14oz) Dosing Weight Clinic: 119.70kg ANNIKA VIEIRA LPN - 05/05/2011 11:40 CDT General Info Information Given By: Patient ANNIKA VIEIRA LPN - 05/05/2011 11:40 CDT Subjective Pain Symptoms: No ANNIKA VIEIRA LPN - 05/05/2011 11:40 CDT Dependent Habits Tobacco Use/Currently Using: No Exposure to Tobacco Smoke: Other: non smoker Alcohol Use: No ANNIKA VIEIRA LPN - 05/05/2011 11:40 CDT Caffeine Use Grid Caffeine Use: Current Type: Coffee Frequency: Daily Amount: 1-2 ANNIKA VIEIRA LPN - 05/05/2011 11:40 CDT Allergy Allergies (Active) Adhesive Bandage Estimated Onset Date: Unspecified ; Reactions: Rash ; Created By: ANNIKA VIEIRA LPN; Reaction Status: Active ; Category: Drug ; Substance: Adhesive Bandage ; Type: Allergy ; Updated By: ANNIKA VIEIRA LPN; Reviewed Date: 05/05/2011 11:37 CDT Bee Stings Estimated Onset Date: Unspecified ; Created By: AMANDEEP BURRELL LPN; Reaction Status: Active ; Category: Environment ; Substance: Bee Stings ; Updated By: AMANDEEP BURRELL LPN; ReviewedDate: 05/05/2011 11:37 CDT clindamycin Estimated Onset Date: Unspecified ; Created By: AMANDEEP BURRELL LPN; Reaction Status:Active ; Category: Drug ; Substance: clindamycin ; Updated By: AMANDEEP BURRELL LPN; Reviewed Date: 05/05/2011 11:37 CDT Lipitor Estimated Onset Date: Unspecified ; Reactions: Chest Pain:Pressure/Tightness ; Created By: AMANDEEP BURRELL LPN; Reaction Status: Active ; Category: Drug ; Substance: Lipitor ; Type: Allergy ; Updated By: AMANDEEP BURRELL LPN; Reviewed Date: 05/05/2011 11:37 CDT penicillin Estimated Onset Date: Unspecified ; Reactions: Hives, SOB - Shortness of breath ; CreatedBy: AMANDEEP BURRELL LPN; Reaction Status: Active ; Category: Drug ; Substance: penicillin ; Type:Allergy ; Updated By: AMANDEEP BURRELL LPN; Reviewed Date: 05/05/2011 11:37 CDT [facility] Document Id: [id number] CDT!25 documented in this encounter Plan of Treatment Not on filedocumented as of this encounter Visit Diagnoses Not on filedocumented in this encounter
--- OUTSIDE RECORDS SUMMARY | 2022-05-24 18:29 | XMS_ITS | Encounter Summary ---
:1945 Author Organization [facility] Address [address] [place] [address] Care Team Providers Name Role Phone Unavailable Primary Care Provider Unavailable Encounter Details Date Type Department Care Team Description 04/05/2013 Hospital Encounter HX [facility] Cathy Rosenthal M.D. Social History Tobacco Use [...] Sign Reading Time Taken Comments Blood Pressure 120/70 04/05/2013 1:27 PM CDT Pulse 68 04/05/2013 1:27 PM CDT Temperature - - Respiratory Rate 16 04/05/2013 1:27 PM CDT Oxygen Saturation - - Inhaled Oxygen Concentration - - Weight 109 kg (239 lb 13.8 oz) 04/05/2013 1:27 PM CDT Height 194 cm (6' 4.38) 04/05/2013 1:27 PM CDT Body Mass Index 28.91 04/05/2013 1:27 PM CDT documented in this encounter Medications at Time of Discharge Medication Sig Dispensed Refills Start Date End Date BISMUTH SUBSALICYLATE ORAL Take by mouth as 0 11/200804/01/2019 needed. documented as of this encounter Progress Notes Cathy Mccoy M.D. - 04/05/2013 1:10 PM CDT [id number] CHIEF COMPLAINT/REASON FOR VISIT Weight loss due to metformin. HISTORY OF PRESENT ILLNESS He was 268 pounds in January and now 238 pounds. He says he is working to try to lose weight, but he is having a lot of bloating, gas, diarrhea and urgency to stool. When he was off metformin he did not have any of those problems. They talked to the shell assembler, and she thought maybe extended-release metformin might help more. His sugars were a lot different, mostly higher when he was off metformin. He has a good appetite. His says he is weak and tired easily. It is hard to go anywhere because of his urgency. He used to be able to urinate and stool. Now it is so urgent he cuts off urination to stool. When we talked about the tiredness, said he is apneic but he refuses to do a sleep study. We discussed benefits and risks of sleep apnea treatment. PAST MEDICAL/SURGICAL HISTORY Acute myocardial infarction, arterial stent, cardiac arrest, coronary artery disease, diabetes, gout, hypertension, hyperlipidemia, skin cancer, colonoscopy in 2007, excision of a calcaneal spur. FAMILY HISTORY Diabetes, cataract, cancer of renal cell, glaucoma, coronary artery disease and sleep apnea. SOCIAL HISTORY He is a nonsmoker. Drinks coffee weekly. CURRENT MEDICATIONS Albuterol CFC free inhaler 2 puffs every 4 hours as needed. Allopurinol 100 mg 2 tabs daily. EpiPen as needed. Fluticasone 2 sprays for turbinate hypertrophy. Gemfibrozil 600 mg 2 times a day. Humalog 75/25, 83 units twice a day. Ibuprofen as needed. Indomethacin 25 mg 3 times a day as needed for gout. Lidex topical solution twice a day as needed. Lisinopril 5 mg daily. Metformin 1000 mg twice a day. Metoprolol 25 mg half tab twice a day. Nitroglycerin as needed. Pepto-Bismol as needed. Viagra as needed. ALLERGIES ADHESIVE BANDAGE. ASPIRIN. BEE STING. CLINDAMYCIN. LIPITOR. PENICILLIN. SYSTEMS REVIEW See HPI. VITAL SIGNS Blood pressure 120/70, pulse 68, respirations 16, temperature 36.4, weight 108.8 kg, height 194 cm. PHYSICAL EXAMINATION Remainder was discussion. IMPRESSION/REPORT/PLAN Fecal urgency. PLAN: We are going to change metformin extended release 500 mg daily and see how he tolerates that. We may increase it to 1000 if he does tolerate it. ADMINISTRATIVE BILLING Total time spent was 15 minutes, with 10 minutes in counseling, coordination of care. Cathy Mccoy M.D./pos Electronically Signed By: CATHY MCCOY MD On: 07/11/2013 05:58 PM Source: [facility] MHSDOLBEYNONRADSYS Document Id: [id number] documented in this encounter Nursing Notes Samira Lu - 06/21/2013 9:14 AM CDT DSME/CDE patient concern Following an MRI Ave was told to hold his metformin for 3 days ( resuming 06/23/13) and update his PCP. CDE explained why that is done. Last creatine on 06/13/13 was 0.8 mg/dl. Ave is drinking water and making an attempt to clear the dye from his body. Unless told not to He plans to restart his metfominon Monday06/23/13. Please advise, if you want to run labs before starting please have your nurse call him. Thank you Samira Electronically Signed By: SAMIRA LU On: 06/21/2013 09:22 AM Source: [facility] POWERCHART Document Id: [id number] Diana Vail L.PKamilaN. - 04/05/2013 1:18 PM CDT Orthostatics Orthostatics Entered On: 04/05/2013 13:24 CDT Performed On: 04/05/2013 13:18 CDT by DIANA VAIL LPN Orthostatics Systolic Blood Pressure Supine : 116 mmHg Diastolic Blood Pressure Supine : 68 mmHg Pulse Supine : 60 /min Patient Response Supine : No response Systolic Blood Pressure Sitting : 118 mmHg Diastolic Blood Pressure Sitting : 72 mmHg Pulse Sitting : 66 /min Patient Response Sitting : No response Systolic Blood Pressure Standing : 100 mmHg Diastolic Blood Pressure Standing : 62 mmHg Pulse Standing : 76 /min Patient Response Standing : No response BP Location Orthostatics : Right upper extremity Blood Pressure Cuff Size Orthostatics : Large DIANA VAIL LPN - 04/05/2013 13:18 CDT Source: [employer] Document Id: [id number] CDT!16 documented in this encounter Miscellaneous Notes Miscellaneous - Samira Lu - 06/21/2013 9:25 AM CDT Do you want a creatine before restarting metformin after MRI Document Contains Addenda Addendum by CATHY MCCOY MD on 21 June 2013 17:24:37 CDT From: CATHY MCCOY MD To: SAMIRA LU; Sent: 06/21/2013 17:24:37 CDT Subject: RE: Do you want a creatine before restarting metformin after MRI Ordered creat for him tomorrow in urgent care hours. then will contact him From: SAMIRA LU To: CATHY MCCOY MD; Sent: 06/21/2013 09:25:27 CDT ! Subject: Do you want a creatine before restarting metformin after MRI Ave had MRI and is holding his metformin until 06/23/13. Please advise him, he called me to wonderif it is safe to restart. No process in place to address this. Please have your nuse call him if you do not want him to restart his metformin Last creatine on 06/13/13 0.8 mg/dl thank you Samira Source: [facility] POWERCHART Document Id: [id number] Electronically signed by Conversion, [facility] [employer] [id number] at 02/08/2017 8:39 AM CDT Miscellaneous - Conversion, Historical Provider Ser - 05/06/2013 4:19 PM CDT Waldschmidt-GI referral Document Contains Addenda Addendum by ABDON LANE on 06 May 2013 16:41:32 CDT From: ABDON LANE ([facility] Nurse) To: CATHY MCCOY MD; Sent: 05/06/2013 16:41:32 CDT Subject: FW: Waldschmidt-GI referral From: MORRIS MCKEON To: SAGE Wise Nurse; Sent: 05/06/2013 16:19:47 CDT Subject: Waldschmidt-GI referral If you need a prescription refill please call your pharmacy. Please allow 3 business days for processing. Call Center Template: ?? May we leave a message for you on this phone? ?? How soon do you need a call back? ?? What can I help you with today? Pt would like a referral for GI. Please call back to advise. ?? If Medication Refill: o What is the medication? o What pharmacy do you use? o Have you contacted your pharmacy regarding this request? I will send this information to the appropriate staff member who will look into your concern. If thenurse needs to talk to you he or she will call you back within two hours. Thank you for calling [facility]. Source: [facility] POWERCHART Document Id: [id number] Miscellaneous - Cathy Mccoy M.D. - 04/05/2013 2:03 PM CDT Ambulatory Patient Summary Hand - [address] [address] Visit Information Name: AVE [facility] Number: [id number] Current Date: 04/05/2013 14:03:28 Physicians Attending Provider: CATHY MCCOY MD Primary Care Provider: CATHY MCCOY MD Your Medications Here is a list of your medications. It is important to take your medications as directed. Use a pillbox or chart to help remind you to take your medications. Please let your doctor or nurse know if you have problems taking your medications. Medication/Strength Dose Route Frequency Indications/Special Instructions/Comments/Notes metFORMIN (metFORMIN 500 mg oral tablet, extended release) 500 mg Oral once a day insulin lispro protamine-insulin lispro (Humalog Mix 75/25 subcutaneous suspension) See [id number] units bid sildenafil (Viagra 50 mg oral tablet) 1 tablet one hour prior to sexual activity Oral once a day as needed for erectile dysfunction lisinopril (lisinopril 5 mg oral tablet) 5 mg Oral once a day nitroglycerin (nitroglycerin 0.4 mg sublingual tablet) 0.4 mg Sublingual as needed as needed for Chest Pain indomethacin (indomethacin 25 mg oral capsule) 25 mg Oral three times a day as needed for Pain Take with food allopurinol (allopurinol 100 mg oral tablet) 100 mg Oral two times a day metoprolol (metoprolol 25 mg oral tablet) 12.5 mg Oral two times a day gemfibrozil (gemfibrozil 600 mg oral tablet) 600 mg Oral two times a day epinephrine [...] subsalicylate (Pepto-Bismol) Oral as needed upset stomach ibuprofen (ibuprofen) Oral as needed Attention: If you have any medications at [...] of renal stone Active Skin cancer Active Your Upcoming Appointments Date Time Location Reason Provider No Appointments found Your Goals/Additional instructions: Source: [facility] POWERCHART Document Id: [id number] Miscellaneous - Cathy Mccoy M.D. - 04/05/2013 2:03 PM CDT Ambulatory Depart Summary Hand - [facility] [address] [place] [id number] Visit Information Name: AVE [facility] Number: [id number] Visit Date: 04/05/2013 14:03:27 Attending Provider: CATHY MCCOY MD Primary Care [...] medications. Medication/Strength Dose Route Frequency Indications/Special Instructions/Comments/Notes metFORMIN (metFORMIN 500 mg oral tablet, extended release) 500 mg Oral once a day insulin lispro protamine-insulin lispro (Humalog Mix 75/25 subcutaneous suspension) See [id number] units bid sildenafil (Viagra 50 mg oral tablet) 1 tablet one hour prior to sexual activity Oral once a day as needed for erectile dysfunction lisinopril (lisinopril 5 mg oral tablet) 5 mg Oral once a day nitroglycerin (nitroglycerin 0.4 mg sublingual tablet) 0.4 mg Sublingual as needed as needed for Chest Pain indomethacin (indomethacin 25 mg oral capsule) 25 mg Oral three times a day as needed for Pain Take with food allopurinol (allopurinol 100 mg oral tablet) 100 mg Oral two times a day metoprolol (metoprolol 25 mg oral tablet) 12.5 mg Oral two times a day gemfibrozil (gemfibrozil 600 mg oral tablet) 600 mg Oral two times a day epinephrine [...] subsalicylate (Pepto-Bismol) Oral as needed upset stomach ibuprofen (ibuprofen) Oral as needed Attention: If you have any medications at home that are not on this list, DO NOT take them until youcontact your provider for clarification. Additional Information: Yes - . Source: [facility] POWERCHART Document Id: [id number] Miscellaneous - Diana Vail L.P.N. - 04/05/2013 1:27 PM CDT Adult Commissions Analyst Intake/History Adult Commissions Analyst Intake/History Entered On: 04/05/2013 13:28 CDT Performed On: 04/05/2013 13:27 CDT by DIANA VAIL LPN Intake Chief Complaint : Weight loss Temperature Core : 36.4 DegC(Converted to: 97.5 DegF) (LOW) Peripheral Pulse Rate : 68 /min Respiratory Rate : 16 /min Heart Rhythm : Regular Systolic Blood Pressure : 120 mmHg Diastolic Blood Pressure : 70 mmHg NIBP Mean : 87 mmHg BP Location : Left upper extremity Blood Pressure Cuff Size : Large Oxygen Therapy : Room air Height : 194 cm(Converted to: 6 ft 4 inch(es), 76.38 inch(es)) Actual Weight : 108.8 kg(Converted to: 239 lb 14 oz) Weight Source : Standing scale Dosing Weight Clinic : 108.8 kg Clinic BSA : 2.42 Body Mass Index : 28.91 kg/m2 DIANA VAIL LPN - 04/05/2013 13:27 CDT General Info Information Given By : Patient Preferred Communication Mode : Verbal Languages : Nepali DIANA VAIL LPN - 04/05/2013 13:27 CDT Subjective Pain Symptoms : No IDANA VAIL LPN - 04/05/2013 13:27 CDT Dependent Habits Tobacco Use/Currently Using : No Exposure to Tobacco Smoke : Other: non smoker Smoking Status : Never smoker DIANA VAIL LPN - 04/05/2013 13:27 CDT Tobacco Use Grid Last Use : Never DIANA VAIL LPN - 04/05/2013 13:27 CDT Alcohol Use : No DIANA VAIL LPN - 04/05/2013 13:27 CDT Caffeine Use Grid Caffeine Use : Current Type : Coffee Frequency : Weekly DIANA VAIL LPN - 04/05/2013 13:27 CDT Source: [employer] POWERCHART Document Id: [id number] CDT!38 Miscellaneous - Diana Vail L.PKamilaNKamila - 02/07/2013 1:26 PM CDT Quality Measures Quality Measures Entered On: 04/05/2013 13:26 CDT Performed On: 02/07/2013 13:26 CDT by DIANA VAIL LPN Diabetes Date of Last Eye Exam : 02/07/2013 CDT DIANA VAIL LPN - 04/05/2013 13:26 CDT Source: [facility] POWERCHART Document Id: [id number] CDT!3 documented in this encounter Plan of Treatment Not on filedocumented as of this encounter Visit Diagnoses Not on filedocumented in this encounter
--- OUTSIDE RECORDS SUMMARY | 2022-05-24 18:29 | XMS_ITS | Encounter Summary ---
:1945 Author Organization [facility] Address [address] [place] [address] Care Team Providers Name Role Phone Unavailable Primary Care Provider Unavailable Encounter Details Date Type Department Care Team Description 04/25/2012 Hospital Encounter HX [facility] Saavedra, kathy L, ALUMINUM HYDROXIDE PROCESS OPERATOR, C.N.P., [address] [place], [place] [address] (Wo rk) Social History Tobacco Use Types [...] Reading Time Taken Comments Blood Pressure 118/62 04/25/2012 9:30 AM CDT Pulse 72 04/25/2012 9:30 AM CDT Temperature - - Respiratory Rate 20 04/25/2012 9:30 AM CDT Oxygen Saturation - - Inhaled Oxygen Concentration - - Weight 118 kg (259 lb 0.7 oz) 04/25/2012 9:30 AM CDT Height 193 cm (6' 3.98) 04/25/2012 9:30 AM CDT Body Mass Index 31.54 04/25/2012 9:30 AM CDT documented in this encounter Medications at Time of Discharge Medication Sig Dispensed Refills Start Date End Date BISMUTH SUBSALICYLATE ORAL Take by mouth as 0 11/200804/01/2019 needed. documented as of this encounter Progress Notes Lauren Garcia, CHARY, C.N.P. - 04/25/2012 9:19 AM CDT EC DATE: 04/25/2012 CHIEF COMPLAINT/REASON FOR VISIT This is a 67-year-old male who comes in with pain in the left side of his neck. HISTORY OF PRESENT ILLNESS He says yesterday he was moving around and he noticed kind of a knot in the left side of his neck. He said he had instant pain and he had a shooting pain which radiated in the neck area and up to his head. He said he had no visual disturbance. No weakness. No nausea, vomiting. No diarrhea. No other systemic symptoms. He has had no headache with this. No visual disturbances. No slurred speech or any weakness. This patient states that he can slowly move his head but it feels very stiff and sharp type stabbing pains if he moves a certain position. He calls them jolts. Right now he says there is just adull ache in his neck area on the left side. He has not used anything for pain medications to this point. PAST MEDICAL/SURGICAL HISTORY MEDICAL: 1. Myocardial infarction ([place]) 6 years ago with stent placement. 2. Coronary artery disease. 3. Diabetes. 4. Gout. 5. Hyperlipidemia. 6. Hypertension. ALLERGIES 1. PENICILLIN. 2. LIPITOR. 3. BEE STINGS. 4. CLINDAMYCIN. 5. ADHESIVE BANDAGES. 6. ASPIRIN. VITAL SIGNS Temperature 36.3. Pulse rate 72 and regular. Respiratory rate 20 and regular. Blood pressure 118/62.Weight 117.5 kg. PHYSICAL EXAMINATION GENERAL: A 67-year-old male in no acute distress. HEENT: Head: Normocephalic, atraumatic. Eyes: Equal, round, and reactive to light and accommodation.Nares: Patent bilaterally. Mucous membranes: Moist and intact. NECK: Supple. Patient does have some mild stiffness in the left side of the neck. MUSCULOSKELETAL: Range of motion of the neck: Patient can rotate the neck but limited to the left side. Lateral motion is normal to the right but Patient has limited motion to the left. Extension and flexion of the neck is slightly limited and Patient is guarded with motion here. He can, however, extend the chin almost to the chest. Patient can shrug shoulders and very strong here. Shoulder and arm strength 5/5 bilaterally. No scapular pain or clavicular pain noted. NEUROLOGIC: Grossly intact II-XII. IMPRESSION/REPORT/PLAN Neck pain with spasms. Patient was given Flexeril 10 mg p.o. every 8 hours as needed for muscle spam. In addition for moderate to severe pain he can have Ultram 50 mg tablet p.o. every 4-6 hours as needed. He can use ice to this area for the next couple days and then use heat as more of a muscle relaxant after that time. Light massage, light stretches should be increased gradually day by day and I did explain this to the patient. If he is having ongoing symptoms or persistent pain, he does need to follow up with his primary care physician. ELEAZAR:miguel angel Doc#: [id number] Electronically Signed By: LAUREN GARCIA CPO On: 04/26/2012 12:22 PM Source: [facility] ISJDICTAPHONESYS Document Id: [id number] documented in this encounter Miscellaneous Notes Miscellaneous - Conversion, Historical Provider Ser - 04/30/2012 2:44 PM CDT S Mag Document Contains Addenda Addendum by NIKIA MCCOY MD on 30 April 2012 15:15:48 CDT From: NIKIA MCCOY MD To: SAGE Wise Nurse Sent: 04/30/2012 15:15:47 CDT Subject: RE:Med Management Approved Order Order: cyclobenzaprine (Flexeril 10 mg oral tablet) 1 tab(s) PO 3xDay Qty: 30 tab(s) Duration: 10 day(s) Refills: 0 Substitutions Allowed Muscle spasm Route To [facility] Signed by NIKIA MCCOY MD 04/30/2012 15:15:44 Approved Order Order: tramadol (tramadol 50 mg oral tablet) 1 tab(s) PO q6hr Qty: 24 tab(s) Refills: 0 Substitutions Allowed Pain Route To [facility] Signed by NIKIA MCCOY MD 04/30/2012 15:15:44 Addendum by LEIGHANN LAM RN on 30 April 2012 14:53:48 CDT From: LEIGHANN LAM RN ([facility] Nurse) To: NIKIA MCCOY MD; Sent: 04/30/2012 14:53:48 CDT Subject: Med Management Dr. Mccoy- Patient is requesting another refill on these medications he was given in Urgent Care. Please advisefor short term refill and I will have him follow up for further refills. Thanks Leighann Lam RN On hold pending signature Order Order: tramadol (tramadol 50 mg oral tablet) 1 tab(s) PO q6hr Qty: 24 tab(s) Refills: 0 Substitutions Allowed Pain Route To [facility] On hold pending signature Order Order: cyclobenzaprine (Flexeril 10 mg oral tablet) 1 tab(s) PO 3xDay Qty: 30 tab(s) Duration: 10 day(s) Refills: 0 Substitutions Allowed Muscle spasm Route To Pharmacy - [facility] From: NUBIA DHALIWAL To: SAGE Wise Nurse; Sent: 04/30/2012 14:44:55 CDT Subject: Efrain Garcia If you need a prescription refill please call your pharmacy. Please allow 3 business days for processing. Call Center Template: May we leave a message for you on this phone? yes What can I help you with today? Please call - also needs another week of the script Lauren Buchanan already sent a fax over. What pharmacy do you use? [facility] in [place] I will send this information to the appropriate staff member who will look into your concern. If thenurse needs to talk to you he or she will call you back within two hours. Thank you for calling [facility]. Source: [facility] POWERCHART Document Id: [id number] Miscellaneous - Lauren Garcia, ALUMINUM HYDROXIDE PROCESS OPERATOR, C.N.P. - 04/25/2012 9:48 AM CDT Ambulatory Depart Summary [address] [address] Visit Information Name: [facility] Visit Date: 04/25/2012 09:48:03 Attending Provider: LAUREN GARCIA CPO Primary Care Provider: NIKIA MCCOY MD [facility] has been given the following list of medications: Your Medications It is important to take your medications as directed. Use a pill box or chart to help remind you to take your medications. Please let your doctor or nurse know if you have problems taking your medications. Medication/Strength Dose Route Frequency Indications/Special Instructions/Comments tramadol (tramadol 50 mg oral tablet) 50 mg Oral every 6 hours as needed for Pain cyclobenzaprine (Flexeril 10 mg oral tablet) 10 mg Oral three times a day as needed for Muscle spasm metformin (metformin 1000 mg oral tablet) 1,000 mg Oral two times a day with meals epinephrine (EpiPen 2-Yves 0.3 mg injectable kit) 0.3 mg Intramuscular once insulin lispro protamine-insulin lispro (Humalog Mix 75/25 subcutaneous suspension) See [id number] units bid albuterol (albuterol CFC free 90 mcg/inh inhalation aerosol) 2 puff(s) Inhalation every 4 hours as needed for Shortness of Breath allergic triggered asthma metoprolol (metoprolol 25 mg oral tablet) 12.5 mg Oral two times a day lisinopril (lisinopril 5 mg oral tablet) 5 mg Oral once a day gemfibrozil (gemfibrozil 600 mg oral tablet) 600 mg Oral two times a day allopurinol (allopurinol 100 mg oral tablet) 100 mg Oral two times a day nitroglycerin (nitroglycerin 0.4 mg sublingual tablet) 0.4 mg Sublingual as needed as needed for Chest Pain fluocinonide topical (Lidex 0.05% topical solution) 1 cecile Topical two times a day fluticasone nasal (fluticasone nasal 0.05 mg/inh spray) 2 spray(s) Nasal once a day TURBINATE HYPERTROPHY / PLEASE USE YOU WERE SHOWN IN THE OFFICE SO TO AVOID THE MIDDLE SEPTUM sildenafil (Viagra 50 mg oral tablet) 1 tablet one hour prior to sexual activity Oral once a day as needed for erectile dysfunction bismuth subsalicylate (Pepto-Bismol) Oral as needed upset stomach ibuprofen (ibuprofen) Oral as needed Attention: If you have any medications at home that are not on this list, DO NOT take them until youcontact your provider for clarification. Additional Information: Source: [facility] POWERCHART Document Id: [id number] Miscellaneous - Lauren Garcia APRN, C.N.P. - 04/25/2012 9:48 AM CDT Ambulatory Patient Summary [place] - [address] [address] Visit Information Name: [facility] Current Date: 04/25/2012 09:48:04 Physicians Attending Provider: LAUREN GARCIA NP Primary Care Provider: NIKIA MCCOY MD Your Medications Here is a list of your medications. It is important to take your medications as directed. Use a pillbox or chart to help remind you to take your medications. Please let your doctor or nurse know if you have problems taking your medications. Medication/Strength Dose Route Frequency Indications/Special Instructions/Comments tramadol (tramadol 50 mg oral tablet) 50 mg Oral every 6 hours as needed for Pain cyclobenzaprine (Flexeril 10 mg oral tablet) 10 mg Oral three times a day as needed for Muscle spasm metformin (metformin 1000 mg oral tablet) 1,000 mg Oral two times a day with meals epinephrine (EpiPen 2-Yves 0.3 mg injectable kit) 0.3 mg Intramuscular once insulin lispro protamine-insulin lispro (Humalog Mix 75/25 subcutaneous suspension) See [id number] units bid albuterol (albuterol CFC free 90 mcg/inh inhalation aerosol) 2 puff(s) Inhalation every 4 hours as needed for Shortness of Breath allergic triggered asthma metoprolol (metoprolol 25 mg oral tablet) 12.5 mg Oral two times a day lisinopril (lisinopril 5 mg oral tablet) 5 mg Oral once a day gemfibrozil (gemfibrozil 600 mg oral tablet) 600 mg Oral two times a day allopurinol (allopurinol 100 mg oral tablet) 100 mg Oral two times a day nitroglycerin (nitroglycerin 0.4 mg sublingual tablet) 0.4 mg Sublingual as needed as needed for Chest Pain fluocinonide topical (Lidex 0.05% topical solution) 1 cecile Topical two times a day fluticasone nasal (fluticasone nasal 0.05 mg/inh spray) 2 spray(s) Nasal once a day TURBINATE HYPERTROPHY / PLEASE USE YOU WERE SHOWN IN THE OFFICE SO TO AVOID THE MIDDLE SEPTUM sildenafil (Viagra 50 mg oral tablet) 1 tablet one hour prior to sexual activity Oral once a day as needed for erectile dysfunction bismuth subsalicylate (Pepto-Bismol) Oral as needed upset [...] No Appointments found Your Goals/Additional instructions: Source: [facility] POWERCHART Document Id: [id number] Miscellaneous - Opal Louis, R.N. - 04/25/2012 9:30 AM CDT Adult Ventilator Specialist Intake/History Adult Ventilator Specialist Intake/History Entered On: 04/25/2012 9:32 CDT Performed On: 04/25/2012 9:30 CDT by OPAL NELSON Intake Chief Complaint : Pain in left side of neck Onset of Symptoms : 2 days Temperature Core : 36.3C(Converted to: 97.3DegF) (LOW) Peripheral Pulse Rate : 72/min Respiratory Rate : 20/min Heart Rhythm : Regular Systolic Blood Pressure : 118mmHg Diastolic Blood Pressure : 62mmHg NIBP Mean : 81mmHg BP Location : Left upper extremity Blood Pressure Cuff Size : Large Height : 193cm(Converted to: 6ft 4inch(es), 75.98inch(es)) Actual Weight : 117.5kg(Converted to: 259lb 1oz) Weight Source : Standing scale Dosing Weight Clinic : 117.50kg Clinic BSA : 2.51 Body Mass Index : 31.54kg/m2 OPAL NELSON 04/25/2012 9:30 CDT General Info Information Given By : Patient Preferred Communication Mode : Verbal Languages : Cook Islander OPAL NELSON 04/25/2012 9:30 CDT Subjective Pain Symptoms : Yes OPAL NELSON 04/25/2012 9:30 CDT Pain Pain Assessment Grid Pain 1 Location : Neck Laterality : Left Intensity : 10 OPAL NELSON 04/25/2012 9:30 CDT Dependent Habits Tobacco Use/Currently Using : No Exposure to Tobacco Smoke : Other: non smoker Smoking Status : Never smoker OPAL NELSON 04/25/2012 9:30 CDT Caffeine Use Grid Caffeine Use : Current Type : Coffee Frequency : Daily Amount : 1-2 OPAL NELSON 04/25/2012 9:30 CDT Allergy Allergies (Active) Adhesive Bandage Estimated Onset Date: Unspecified ; Reactions: Rash ; Created By: NOREEN HERNANDEZ LPN; Reaction Status: Active ; Category: Drug ; Substance: Adhesive Bandage ; Type: Allergy ; Updated By: NOREEN HERNANDEZ LPN; Reviewed Date: 04/25/2012 9:30 CDT aspirin Estimated Onset Date: Unspecified ; Reactions: Nosebleeds ; Created By: CECILIO MCCOY MD; Reaction Status: Active ; Category: Drug ; Substance: aspirin ; Type: Allergy ; Updated By: NIKIA MCCOY MD; Reviewed Date: 04/25/2012 9:30 CDT Bee Stings Estimated Onset Date: Unspecified ; Created By: AMANDEEP BURRELL LPN; Reaction Status: Active ; Category: Environment ; Substance: Bee Stings ; Updated By: AMANDEEP BURRELL LPN; ReviewedDate: 04/25/2012 9:30 CDT clindamycin Estimated Onset Date: Unspecified ; Created By: AMANDEEP BURRELL LPN; Reaction Status:Active ; Category: Drug ; Substance: clindamycin ; Updated By: AMANDEEP BURRELL LPN; Reviewed Date: 04/25/2012 9:30 CDT Lipitor Estimated Onset Date: Unspecified ; Reactions: Chest Pain:Pressure/Tightness ; Created By: AMANDEEP BURRELL LPN; Reaction Status: Active ; Category: Drug ; Substance: Lipitor ; Type: Allergy ; Updated By: AMANDEEP BURRELL LPN; Reviewed Date: 04/25/2012 9:30 CDT penicillin Estimated Onset Date: Unspecified ; Reactions: Hives, SOB - Shortness of breath ; CreatedBy: AMANDEEP BURRELL LPN; Reaction Status: Active ; Category: Drug ; Substance: penicillin ; Type:Allergy ; Updated By: AMANDEEP BURRELL LPN; Reviewed Date: 04/25/2012 9:30 CDT Source: [facility] Infor Document Id: [id number] documented in this encounter Plan of Treatment Not on filedocumented as of this encounter Visit Diagnoses Not on filedocumented in this encounter
--- OUTSIDE RECORDS SUMMARY | 2022-05-24 18:29 | XMS_ITS | Encounter Summary ---
:1945 Author Organization [facility] Address [address] [place] [address] Care Team Providers Name Role Phone Unavailable Primary Care Provider Unavailable Encounter Details Date Type Department Care Team Description 06/20/2013 Hospital Encounter HX [facility] Kedar Chambers M.D. Social History Tobacco Use Types Packs/Day [...] Priority Date/Time Associated Diagnosis Comme nts CT CHEST ABDOMEN Routine 06/20/2013 2:50 PM Resul ts for this PELVIS WITH IV CDT procedure are in CONTRAST the results section. documented in this encounter Results CT Chest Abdomen Pelvis with IV Contrast (06/20/2013 2:50 PM CDT) Anatomical Region Laterality Modality Chest, Abdomen, Pelvis Computed Tomograp hy Specimen (Source) Anatomical Collection Method Collection Time Re ceived Time Location / / Volume Laterality 06/20/2013 2:50 PM CDT Addenda Addendum by Provider, Junior Worthington n 06/20/2013 2:50 PM CDT RAD^^^MA CT CHEST ABDOMEN PELVIS W CONTRAST 06/20/2013 14:50:00 Narrative 06/20/2013 3:[address] of chest, abdomen, and pelvis dated 1 . History: Abnormal weight loss, diarrhea Comparison: 03/08/2010 Technique: Axial images were obtained fr om the lung apex to the mid thigh with IV and oral contrast. The laurence ges were reviewed in bone, lung, mediastinal, and abdominal windows . Findings: The trachea and proximal bronchi are pat ent. There is no pulmonary nodule. There is no acute interstitial o r airspace opacity noted. There is no axillary or mediastinal bruna opathy seen. There is moderate to severe atherosclerotic disea se of the coronary arteries. There is no pleural or pericardial effus ion. The liver exhibits marked hypodensity compared to the splee n. There is a questionable ultrasound in the neck of the gallbladde r. There are too small to characterize hypodensities in the kidney s bilaterally. The adrenals and spleen are within normal limits. The re are calcifications in the pancreas consistent with chronic pancrea titis. The upper abdominal vasculature is patent. There is no abnor mal upper abdominal adenopathy. There is mild atheroscleroti c disease of the abdominal aorta. There is no free fluid in the pel vis. There is diffuse diverticulosis of the distal colon. The appendix is within normal limits. There is no abnormally dilated l oop of large or small bowel. There is no abdominal or pelvic adenopat hy. There are degenerative changes of the visualized axial and appe ndicular skeleton. There is no worrisome bone lesion. Impression: 1. No acute abnormality identified. 2. Fatty infiltration of liver. 3. Small hypodensities within the kidney s bilaterally which are unchanged compared to 2010 and are there fore likely benign. Procedure Note Price Carrasquillo M.D. / Provider, Yony contreras M.D. - 01/27/2017 CT of chest, abdomen, and pelvis dated 1 . History: Abnormal weight loss, diarrhea Comparison: 03/08/2010 Technique: Axial images were obtained fr om the lung apex to the mid thigh with IV and oral contrast. The laurence ges were reviewed in bone, lung, mediastinal, and abdominal windows . Findings: The trachea and proximal bronchi are pat ent. There is no pulmonary nodule. There is no acute interstitial o r airspace opacity noted. There is no axillary or mediastinal bruna opathy seen. There is moderate to severe atherosclerotic disea se of the coronary arteries. There is no pleural or pericardial effus ion. The liver exhibits marked hypodensity compared to the splee n. There is a questionable ultrasound in the neck of the gallbladde r. There are too small to characterize hypodensities in the kidney s bilaterally. The adrenals and spleen are within normal limits. The re are calcifications in the pancreas consistent with chronic pancrea titis. The upper abdominal vasculature is patent. There is no abnor mal upper abdominal adenopathy. There is mild atheroscleroti c disease of the abdominal aorta. There is no free fluid in the pel vis. There is diffuse diverticulosis of the distal colon. The appendix is within normal limits. There is no abnormally dilated l oop of large or small bowel. There is no abdominal or pelvic adenopat hy. There are degenerative changes of the visualized axial and appe ndicular skeleton. There is no worrisome bone lesion. Impression: 1. No acute abnormality identified. 2. Fatty infiltration of liver. 3. Small hypodensities within the kidney s bilaterally which are unchanged compared to 2010 and are there fore likely benign. Karina Black R.T.(R)(CT), R.T.(R) IMG CT PROCEDURES documented in this encounter Visit Diagnoses Not on filedocumented in this encounter
--- OUTSIDE RECORDS SUMMARY | 2022-05-24 18:29 | XMS_ITS | Encounter Summary ---
:1945 Author Organization [facility] Address [address] [place] [address] Care Team Providers Name Role Phone Unavailable Primary Care Provider Unavailable Encounter Details Date Type Department Care Team Description 12/20/2012 Hospital Encounter HX [facility] Temo Sorenson M.D. Social History Tobacco Use Types Packs/Day [...] Reading Time Taken Comments Blood Pressure 122/78 12/20/2012 10:00 AM CDT Pulse 72 12/20/2012 10:00 AM CDT Temperature - - Respiratory Rate 20 12/20/2012 10:00 AM CDT Oxygen Saturation - - Inhaled Oxygen Concentration - - Weight 119 kg (261 lb 7.5 oz) 12/20/2012 10:00 AM CDT Height - - Body Mass Index 31.51 10/19/2012 1:19 PM VP [employer]URITY documented in this encounter Medications at Time of Discharge Medication Sig Dispensed Refills Start Date End Date BISMUTH SUBSALICYLATE ORAL Take by mouth as 0 11/200804/01/2019 needed. documented as of this encounter Progress Notes Dayna Joseph M.D. - 12/20/2012 9:55 AM CDT EC DATE: 12/20/2012 CHIEF COMPLAINT/REASON FOR VISIT Right foot pain. HISTORY OF PRESENT ILLNESS Ave is a 67-year-old male who comes in because of right foot pain. Basically, it hurts in the first metatarsophalangeal joint on the right foot. He does have a history of gout. He is taking allopurinol and he had been eating a lot of ham over the . Basically, his foot has been hurting now for about the past five days. He generally does a lot of walking so he has been concerned about astress fracture. ALLERGIES 1. ADHESIVE TAPE. 2. BEE STINGS. 3. ASPIRIN. 4. CLINDAMYCIN. 5. LIPITOR. 6. PENICILLIN. CURRENT MEDICATIONS 1. Nitroglycerin 0.4 sublingual as needed. 2. Lidex cream twice a day. 3. Viagra as needed. 4. Allopurinol 100 milligrams twice a day. 5. Metoprolol 25 milligrams half tablet twice a day. 6. Albuterol two puffs four times a day. 7. Lisinopril 5 milligrams daily. 8. Gemfibrozil 600 milligrams twice a day. 9. Humalog 75/25, 83 units twice a day. VITAL SIGNS Weight 118.6 kilograms, temperature 36.5 C, pulse 72, respirations 20, blood pressure 122/78. PHYSICAL EXAMINATION EXTREMITIES: There is some minimal swelling over the first metatarsophalangeal joint of his right foot. There is some tenderness to palpation. Range of motion of foot is normal. DIAGNOSTIC DATA: X-ray is negative. IMPRESSION/REPORT/PLAN Right foot pain, probably gout. Indomethacin 25 milligrams three times a day. Advised, reassured, recheck if not better. Nicola Doc#: [id number] cc: bkmkend DNEndCCBlock Electronically Signed By: DAYNA JOSEPH MD On: 12/24/2012 08:56 AM Source: [facility] ISJDICTAPHONESYS Document Id: [id number] documented in this encounter Miscellaneous Notes Miscellaneous - Dayna Joseph M.D. - 12/20/2012 10:37 AM CDT Ambulatory Patient Summary [address] [address] Visit Information Name: AVE [facility] Number: [id number] Current Date: 12/20/2012 10:37:35 Physicians Attending Provider: KERRY GARCIA NP Primary Care Provider: NIKIA SELBY MD Your Medications Here is a list of your medications. It is important to take your medications as directed. Use a pillbox or chart to help remind you to take your medications. Please let your doctor or nurse know if you have problems taking your medications. Medication/Strength Dose Route Frequency Indications/Special Instructions/Comments indomethacin (indomethacin 25 mg oral capsule) 25 mg Oral three times a day as needed for Pain Take with food allopurinol (allopurinol 100 mg oral tablet) 100 mg Oral two times a day metoprolol (metoprolol 25 mg oral tablet) 12.5 mg Oral two times a day lisinopril (lisinopril 5 mg oral tablet) 5 mg Oral once a day Please make appointment for more refills. insulin lispro protamine-insulin lispro (Humalog Mix 75/25 subcutaneous suspension) See [id number] units bid gemfibrozil (gemfibrozil 600 mg oral tablet) 600 mg Oral two times a day epinephrine (EpiPen 2-Yves 0.3 mg injectable kit) 0.3 mg Intramuscular once albuterol (albuterol CFC free 90 mcg/inh inhalation aerosol) 2 puff(s) Inhalation every 4 hours as needed for Shortness of Breath allergic triggered asthma nitroglycerin (nitroglycerin 0.4 mg sublingual tablet) 0.4 [...] No Appointments found Your Goals/Additional instructions: Source: [facility] POWERCHART Document Id: [id number] Miscellaneous - Dayna Joseph M.D. - 12/20/2012 10:37 AM CDT Ambulatory Depart Summary [address] [id number] Visit Information Name: AVE [facility] Number: [id number] Visit Date: 12/20/2012 10:37:34 Attending Provider: KERRY GARCIA NP Primary Care Provider: NIKIA SELBY MD A[facility] has been given the following list of medications: Your Medications It is important to take your medications as directed. Use a pill box or chart to help remind you to take your medications. Please let your doctor or nurse know if you have problems taking your medications. Medication/Strength Dose Route Frequency Indications/Special Instructions/Comments indomethacin (indomethacin 25 mg oral capsule) 25 mg Oral three times a day as needed for Pain Take with food allopurinol (allopurinol 100 mg oral tablet) 100 mg Oral two times a day metoprolol (metoprolol 25 mg oral tablet) 12.5 mg Oral two times a day lisinopril (lisinopril 5 mg oral tablet) 5 mg Oral once a day Please make appointment for more refills. insulin lispro protamine-insulin lispro (Humalog Mix 75/25 subcutaneous suspension) See [id number] units bid gemfibrozil (gemfibrozil 600 mg oral tablet) 600 mg Oral two times a day epinephrine (EpiPen 2-Yves 0.3 mg injectable kit) 0.3 mg Intramuscular once albuterol (albuterol CFC free 90 mcg/inh inhalation aerosol) 2 puff(s) Inhalation every 4 hours as needed for Shortness of Breath allergic triggered asthma nitroglycerin (nitroglycerin 0.4 mg sublingual tablet) 0.4 [...] your provider for clarification. Additional Information: Source: [facility] POWERCHART Document Id: [id number] Miscellaneous - Marielle Aguirre - 12/20/2012 10:00 AM CDT Adult Nursing Care Partner Intake/History Adult Nursing Care Partner Intake/History Entered On: 12/20/2012 10:04 CDT Performed On: 12/20/2012 10:00 CDT by MARIELLE AGUIRRE Intake Chief Complaint : patient is here with pain below his right big toe, has been there for awhile, wondering if he has a stress fracture Temperature Core : 36.5 DegC(Converted to: 97.7 DegF) Peripheral Pulse Rate : 72 /min Respiratory Rate : 20 /min Heart Rhythm : Regular Systolic Blood Pressure : 122 mmHg Diastolic Blood Pressure : 78 mmHg NIBP Mean : 93 mmHg BP Location : Right upper extremity Blood Pressure Cuff Size : Large Oxygen Therapy : Room air Actual Weight : 118.6 kg(Converted to: 261 lb 7 oz) Weight Source : Standing scale Dosing Weight Clinic : 118.6 kg MARIELLE AGUIRRE - 12/20/2012 10:00 CDT General Info Information Given By : Patient Preferred Communication Mode : Verbal Languages : [place] MARIELLE AGUIRRE - 12/20/2012 10:00 CDT Subjective Pain Symptoms : Yes MARIELLE AGUIRRE - 12/20/2012 10:00 CDT Pain Pain Assessment Grid Pain 1 Location : Other: big toe Laterality : Right Intensity : 2 MARIELLE AGUIRRE - 12/20/2012 10:00 CDT Dependent Habits Tobacco Use/Currently Using : No Exposure to Tobacco Smoke : Other: non smoker Smoking Status : Never smoker MARIELLE AGUIRRE - 12/20/2012 10:00 CDT Caffeine Use Grid Caffeine Use : Current Type : Coffee Frequency : Daily Amount : 1-2 MARIELLE AGUIRRE - 12/20/2012 10:00 CDT [facility] Document Id: [id number] documented in this encounter Plan of Treatment Not on filedocumented as of this encounter Procedures Procedure Name Priority Date/Time Associated Diagnosis Comme nts DX FOOT RIGHT 3+ Routine 12/20/2012 9:57 AM Resul ts for this VIEWS CDT procedure are i n the results section. documented in this encounter Results DX Foot Right 3+ Views (12/20/2012 9:57 AM CDT) Anatomical Region Laterality Modality Lower Extremity, Foot Right Radiographic Imagi ng Specimen (Source) Anatomical Collection Method Collection Time Re ceived Time Location / / Volume Laterality 12/20/2012 9:57 AM CDT Addenda Addendum by Provider, Junior Worthington o n 12/20/2012 9:57 AM CDT RAD^^^MA XR Foot Right 3 or more views 12/20/2012 09:57:00 Impressions 12/20/2012 10:27 AM CDT Calcaneal spur, otherwise negative right foot. Narrative 12/20/2012 10:27 AM CDT EXAM: XR Foot Right 3 or more views INDICATION: foot pain COMPARISON: None. FINDINGS: Soft tissues are unremarkable. No fracture or destructive lesion is identified. Joint spaces are p reserved without significant degenerative change. There is a large ca lcaneal spur. Procedure Note Macario Yeager Jr., M.D. / Ander Hahn M.D. - 01/27/2017 EXAM: XR Foot Right 3 or more views INDICATION: foot pain COMPARISON: None. FINDINGS: Soft tissues are unremarkable. No fracture or destructive lesion is identified. Joint spaces are p reserved without significant degenerative change. There is a large ca lcaneal spur. IMPRESSION: Calcaneal spur, otherwise ne gative right foot. Historical Provider IMG DIAGNOSTIC IMAGING PROCE DURES documented in this encounter Visit Diagnoses Not on filedocumented in this encounter
--- OUTSIDE RECORDS SUMMARY | 2022-05-24 18:29 | XMS_ITS | Encounter Summary ---
:1945 Author Organization [facility] Address [address] [place] [address] Care Team Providers Name Role Phone Unavailable Primary Care Provider Unavailable Encounter Details Date Type Department Care Team Description 06/22/2013 Hospital Encounter HX [facility] Micah Pyle M.D. [address] [place] [address] (Wo rk) Social History Tobacco Use Types [...] Notes Miscellaneous - Nikia Mccoy M.D. - 06/23/2013 4:12 PM CDT General Message From: NIKIA MCCOY MD Sent: 06/23/2013 16:12:45 CDT Subject: General Message Gave results. may restart metformin Source: [facility] POWERCHART Document Id: [id number] documented in this encounter Plan of Treatment Not on filedocumented as of this encounter Procedures Procedure Name Priority Date/Time Associated Comments Diagnosis CREATININE WITH Routine 06/22/2013 10:20 AM Resul ts for this EGFR, S/P CDT procedure are i n the results section. documented in this encounter Results Creatinine with eGFR (06/22/2013 10:20 AM CDT) P athologist Signature Creatinine 0.9 0.8 - 1.3 POWERCHART MGDL HXeGFR (MDRD) >60.0 >=60.0 POWERCHART Comment: Results are in mL/min/1.73m squared CKD Stage I: GFR > 90 CKD Stage II: GFR 60 to 89 CKD Stage III: GFR 30 to 59 CKD Stage IV: GFR 15 to 29 CKD Stage V: GFR < 15 or Dialysis eGFR Black/ >60 >=60 PO WERCHART Specimen (Source) Anatomical Collection Method Collection Time Re ceived Time Location / / Volume Laterality Blood 06/22/2013 10:20 AM CDT Nikia Mccoy M.D. LAB BLOOD ADD-ON Performing Organization Address City/State/ZIP Code Phon e Number POWERCHART documented in this encounter Visit Diagnoses Not on filedocumented in this encounter
--- OUTSIDE RECORDS SUMMARY | 2022-05-24 18:29 | XMS_ITS | Encounter Summary ---
:1945 Author Organization [facility] Address [address] [place] [address] Care Team Providers Name Role Phone Unavailable Primary Care Provider Unavailable Encounter Details Date Type Department Care Team Description 10/19/2012 Hospital Encounter HX [facility] Cathy Rosenthal M.D. Social History Tobacco Use [...] Sign Reading Time Taken Comments Blood Pressure 118/68 10/19/2012 1:19 PM SALES [employer]NAGEMENT [employer]EE Pulse 60 10/19/2012 1:19 PM SALES [employer]NAGEMENT [employer]EE Temperature - - Respiratory Rate 20 10/19/2012 1:19 PM SALES MANAGEMENT TRA[employer]EE Oxygen Saturation - - Inhaled Oxygen Concentration - - Weight 117 kg (258 lb 9.6 oz) 10/19/2012 1:19 PM SALES MANAGEMENT TRA[employer]EE Height 194 cm (6' 4.38) 10/19/2012 1:19 PM SALES MANAGEMENT TRAINEE Body Mass Index 31.17 10/19/2012 1:19 PM SALES MANAGEMENT TRAINEE documented in this encounter Medications at Time of Discharge Medication Sig Dispensed Refills Start Date End Date BISMUTH SUBSALICYLATE ORAL Take by mouth as 0 11/200804/01/2019 needed. documented as of this encounter Progress Notes Cathy Mccoy M.D. - 10/19/2012 1:11 PM CST CN DATE: 10/19/2012 CHIEF COMPLAINT/REASON FOR VISIT Rash. HISTORY OF PRESENT ILLNESS He is a 57-year-old male who has had a rash on his forearms for the last couple weeks. Now there is a new larger spot on his right forearm. It is not really itchy except on the top of his ears and eyelids. He is wondering if he is allergic to metformin. Said if he does not take it his glucose does go up about 60 points. He has not been exposed to any specific allergens that he can remember. PAST MEDICAL/SURGICAL HISTORY 1. Acute myocardial infarction. 2. Arterial stent. 3. Cardiac arrest. 4. Coronary artery disease. 5. Diabetes. 6. Gout. 7. Hypertension. 8. Hyperlipidemia. 9. Skin cancer. 10. Colonoscopy 2007. 11. Excision of calcaneal spur 2006. 12. Family history of cancer. 13. Cataract. 14. Coronary artery disease. 15. Diabetes. 16. Glaucoma. SOCIAL HISTORY HE is not a smoker. Drinks 1-2 cups of coffee daily. FAMILY HISTORY Family history of renal stones and sleep apnea. CURRENT MEDICATIONS 1. Albuterol inhaler 2 puffs every 4 hours as needed 2. Allopurinol 100 mg twice times a day. 3. EpiPen. 4. Flonase 2 sprays daily. 5. Gemfibrozil 600 mg 2 times a day. 6. Humalog 75/25 83 units 2 times a day. 7. Ibuprofen as needed. 8. Lidex solution topical 2 times a day. 9. Lisinopril 5 mg daily. 10. Metoprolol 25 mg 2 times a day. 11. Nitroglycerin as needed 12. Pepto Bismol as needed. 13. Viagra 50 mg as needed. ALLERGIES 1. PENICILLIN. 2. LIPITOR. 3. BEE STINGS. 4. CIDOMYCIN. 5. ADHESIVE BANDAGE. 0 6. ASPIRIN. VITAL SIGNS Blood pressure 118/68. Pulse 60. Respirations 20. Temperature 36.4. Weight 117.3 kg. Height 194 cm. PHYSICAL EXAMINATION Rash is macular, pink, discrete. Spots mostly about 0.1 cm, but the new one is about 0.3 cm and is darker and raised. IMPRESSION/REPORT/PLAN Rash. Benadryl 25 mg 3 times a day and as needed. If not improved in 1 week will do a biopsy on him. ADMINISTRATIVE BILLING Total time spent was 15 minutes with 10 minutes in counseling and coordination of care. SILVIANO:alexandria Doc#: [id number] cc: Electronically Signed By: CATHY MCCOY MD On: 12/16/2012 04:14 PM Source: [facility] ISJDICTAPHONESYS Document Id: [id number] documented in this encounter Miscellaneous Notes Miscellaneous - Cathy Mccoy M.D. - 10/19/2012 1:45 PM CST Ambulatory Patient Summary [place] [facility] [address] [place] [id number] Visit Information Name: AVE [facility] Number: [id number] Current Date: 10/19/2012 13:45:15 Physicians Attending Provider: CATHY MCCOY MD Primary Care Provider: CATHY MCCOY MD Your Medications Here is a list of your medications. It is important to take your medications as directed. Use a pillbox or chart to help remind you to take your medications. Please let your doctor or nurse know if you have problems taking your medications. Medication/Strength Dose Route Frequency Indications/Special Instructions/Comments lisinopril (lisinopril 5 mg oral tablet) 5 mg Oral once a day Please make appointment for more refills. insulin lispro protamine-insulin lispro (Humalog Mix 75/25 subcutaneous suspension) See [id number] units bid gemfibrozil (gemfibrozil 600 mg oral tablet) 600 mg Oral two times a day epinephrine (EpiPen 2-Yves 0.3 mg injectable kit) 0.3 mg Intramuscular once albuterol (albuterol CFC free 90 mcg/inh inhalation aerosol) 2 puff(s) Inhalation every 4 hours as needed for Shortness of Breath allergic triggered asthma metoprolol (metoprolol 25 mg oral tablet) 12.5 mg Oral two times a day allopurinol [...] No Appointments found Your Goals/Additional instructions: Source: [facility] POWERCHART Document Id: [id number] S MANAGEMENT TRAINEE Miscellaneous - Cathy Mccoy M.D. - 10/19/2012 1:45 PM CST Ambulatory Depart Summary [place] [facility] [address] [address] Visit Information Name: AVE [facility] Number: [id number] Visit Date: 10/19/2012 13:45:14 Attending Provider: CATHY MCCOY MD Primary Care Provider: CATHY MCCOY MD [facility] has been given the following list of medications: Your Medications It is important to take your medications as directed. Use a pill box or chart to help remind you to take your medications. Please let your doctor or nurse know if you have problems taking your medications. Medication/Strength Dose Route Frequency Indications/Special Instructions/Comments lisinopril (lisinopril 5 mg oral tablet) 5 mg Oral once a day Please make appointment for more refills. insulin lispro protamine-insulin lispro (Humalog Mix 75/25 subcutaneous suspension) See [id number] units bid gemfibrozil (gemfibrozil 600 mg oral tablet) 600 mg Oral two times a day epinephrine (EpiPen 2-Yves 0.3 mg injectable kit) 0.3 mg Intramuscular once albuterol (albuterol CFC free 90 mcg/inh inhalation aerosol) 2 puff(s) Inhalation every 4 hours as needed for Shortness of Breath allergic triggered asthma metoprolol (metoprolol 25 mg oral tablet) 12.5 mg Oral two times a day allopurinol [...] clarification. Additional Information: Yes - . [facility] Document Id: [id number] S MANAGEMENT TRAINEE Miscellaneous - Shirin Keen L.P.N. - 10/19/2012 1:24 PM CST Health Assessment Health Assessment Entered On: 10/19/2012 13:24 SALES MANAGEMENT TRAINEE Performed On: 10/19/2012 13:24 SALES MANAGEMENT TRAINEE by SHIRIN KEEN LPN Health Assessment Complete Health Assessment Complete or Modified : Annual Health Assessment Annual Health Assessment Completed : Yes SHIRIN KEEN LPN - 10/19/2012 13:24 [employer] Nutrition Nutrition Risk Factors by History Adult : None Home Diet : Diabetic SHIRIN KEEN LPN - 10/19/2012 13:24 [employer]NA[employer]EMENT [employer]EE Functional Current Daily Living Assistance : None SHIRIN KEEN LPN - 10/19/2012 13:24 [employer]ES MANA[employer]EMENT [employer]EE Dependent Habits Tobacco Use/Currently Using : No Exposure to Tobacco Smoke : Other: non smoker Smoking Status : Never smoker SHIRIN KEEN LPN - 10/19/2012 13:24 [employer]ES MANAGEMENT [employer]EE Caffeine Use Grid Caffeine Use : Current Type : Coffee Frequency : Daily Amount : 1-2 SHIRIN KEEN LPN - 10/19/2012 13:24 [employer]ES MANA[employer]EMENT [employer]EE Psychosocial Domestic Abuse Concerns : None SHIRIN KEEN LPN - 10/19/2012 13:24 SALES MANAGEMENT TRA[employer]EE Advance Directive Advanced Directives : No SHIRIN KEEN LPN - 10/19/2012 13:24 SALES MANAGEMENT [employer]EE Educ Needs Learning Style Preference Adult Grid Patient : None Family : None SHIRIN KEEN LPN - 10/19/2012 13:24 SALES MANAGEMENT TRAINEE [facility] Document Id: [id number] S MANAGEMENT TRAINEE Miscellaneous - Shirin Keen L.P.N. - 10/19/2012 1:19 PM CST Adult Card Table Attendant Intake/History Adult Card Table Attendant Intake/History Entered On: 10/19/2012 13:22 SALES [employer]NAGEMENT [employer]EE Performed On: 10/19/2012 13:19 SALES MANAGEMENT TRAINEE by SHIRIN KEEN LPN Intake Chief Complaint : pt has had a rash on his forearms for the past couple of weeks. Today there is a new larger spot on his right forearm Temperature Core : 36.4C(Converted to: 97.5DegF) (LOW) Peripheral Pulse Rate : 60/min Respiratory Rate : 20/min Heart Rhythm : Regular Systolic Blood Pressure : 118mmHg Diastolic Blood Pressure : 68mmHg NIBP Mean : 85mmHg BP Location : Left upper extremity Blood Pressure Cuff Size : Large Height : 194cm(Converted to: 6ft 4inch(es), 76.38inch(es)) Actual Weight : 117.3kg(Converted to: 258lb 10oz) Dosing Weight Clinic : 117.30kg Clinic BSA : 2.51 Body Mass Index : 31.17kg/m2 SHIRIN KEEN LPN - 10/19/2012 13:19 [employer]ES [employer]NAGEMENT TRA[employer]EE General Info Information Given By : Patient Preferred Communication Mode : Verbal Languages : Albanian SHIRIN KEEN LPN - 10/19/2012 13:19 SALES MANAGEMENT TRA[employer]EE Subjective Pain Symptoms : No SHIRIN KEEN LPN - 10/19/2012 13:19 SALES MANAGEMENT TRAINEE Dependent Habits Tobacco Use/Currently Using : No Exposure to Tobacco Smoke : Other: non smoker Smoking Status : Never smoker SHIRIN KEEN LPN - 10/19/2012 13:19 SALES MANAGEMENT TRA[employer]EE Caffeine Use Grid Caffeine Use : Current Type : Coffee Frequency : Daily Amount : 1-2 SHIRIN KEEN LPN - 10/19/2012 13:19 SALES MANAGEMENT TRA[employer]EE Allergy Allergies (Active) Adhesive Bandage Estimated Onset Date: Unspecified ; Reactions: Rash ; Created By: NOREEN HERNANDEZ LPN; Reaction Status: Active ; Category: Drug ; Substance: Adhesive Bandage ; Type: Allergy ; Updated By: NOREEN HERNANDEZ LPN; Reviewed Date: 06/26/2012 8:58 CDT aspirin Estimated Onset Date: Unspecified ; Reactions: Nosebleeds ; Created By: CECILIO MCCOY MD; Reaction Status: Active ; Category: Drug ; Substance: aspirin ; Type: Allergy ; Updated By: CATHY MCCOY MD; Reviewed Date: 06/26/2012 8:58 CDT Bee Stings Estimated Onset Date: Unspecified ; Created By: AMANDEEP BURRELL LPN; Reaction Status: Active ; Category: Environment ; Substance: Bee Stings ; Updated By: AMANDEEP BURRELL LPN; ReviewedDate: 06/26/2012 8:58 CDT clindamycin Estimated Onset Date: Unspecified ; Created By: AMANDEEP BURRELL LPN; Reaction Status:Active ; Category: Drug ; Substance: clindamycin ; Updated By: AMANDEEP BURRELL LPN; Reviewed Date: 06/26/2012 8:58 CDT Lipitor Estimated Onset Date: Unspecified ; Reactions: Chest Pain:Pressure/Tightness ; Created By: AMANDEEP BURRELL LPN; Reaction Status: Active ; Category: Drug ; Substance: Lipitor ; Type: Allergy ; Updated By: AMANDEEP BURRELL LPN; Reviewed Date: 06/26/2012 8:58 CDT penicillin Estimated Onset Date: Unspecified ; Reactions: Hives, SOB - Shortness of breath ; CreatedBy: AMANDEEP BURRELL LPN; Reaction Status: Active ; Category: Drug ; Substance: penicillin ; Type:Allergy ; Updated By: AMANDEEP BURRELL LPN; Reviewed Date: 06/26/2012 8:58 CDT Source: [facility] [email or web address] Document Id: [id number] S MANAGEMENT TRAINEE documented in this encounter Plan of Treatment Not on filedocumented as of this encounter Visit Diagnoses Not on filedocumented in this encounter
--- OUTSIDE RECORDS SUMMARY | 2022-05-24 18:29 | XMS_ITS | Encounter Summary ---
:[address] [facility] Address [address] [place] [address] Care Team Providers Name Role Phone Unavailable Primary Care Provider Unavailable Encounter Details Date Type Department Care Team Description 06/16/2011 Hospital Encounter HX [facility] Oziel Solis A.R.NKeren., R.N. [address] [place] [address] (Wo rk) Social History Tobacco Use Types [...] More than 4 times per year 06/14/2019 [employer] services? Do you belong to any clubs [...] documented as of this encounter Progress Notes Oziel Owens A.R.N.P. - 06/16/2011 8:19 AM CDT SUBSV Otorhinolaryngology DATE OF SERVICE 06/16/2011 TYPE OF VISIT Scheduled return visit. REASON FOR VISIT Follow up epistaxis. HISTORY OF PRESENT ILLNESS The patient is a 66-year-old gentleman first seen in the ENT clinic on May 05, 2011 for epistaxis. He has a history of epistaxis with right nasal cautery in January 2011. His nosebleed recur April 26 of this year. He underwent a flexible laryngoscopy and evaluation of both nasal cavities, which showedturbinate hypertrophy but no polyps or other obstructive lesions. He was given Flonase nasal spray and bacitracin ointment for nasal cavity humidification and he has followed the recommendations of that visit. He returns today to say he has had no nasal bleeding for at least one week's time. PAST MEDICAL, FAMILY, SOCIAL HISTORY Past medical history, surgical history, medications, allergies, family and social history are reviewed today and are unchanged from our initial visit of May 05, 2011. EXAMINATION GENERAL: He is alert, pleasant, in no acute distress. He remains a mildly obese gentleman with no apparent respiratory distress or increased work of breathing. HEENT: His nasal cavity that appears less inflamed. No sign of active bleeding or irritation. No obstruction or polyps are noted. He breathes nasally without apparent difficulty. His oral mucosa is moist. NECK: Soft, supple, and without lymphadenopathy. IMPRESSION/REPORT/PLAN 1. Epistaxis. 2. Snoring and sleep-disordered breathing. PLAN Continue the above care of his nose. He can switch to just a lubricating jelly and a bedside cool-mist vaporizer during the winter. Continue the GERD. Continue the nasal spray. I also strongly recommend a sleep study yet again. His urging this upon him as well. He will consider. Otherwise, we will be happy to see him back on an as-needed basis. He has no other questions or concerns. DARA: sanchez Doc#: [id number] cc: Electronically Signed By: OZIEL OWENS NP On: 08/26/2011 12:06 PM Source: 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 Has not had significant nosebleed since last appointment. Patient stated that he has had some blood tinged mucus from nose for 2 weeks. Ambulatory Intake Additional Information: PCP- Dr. Mccoy Temperature Core: 36.4C(Converted to: 97.5DegF) (LOW) Systolic Blood Pressure: 124mmHg Diastolic Blood Pressure: 78mmHg NIBP Mean: 93mmHg BP Location: Left upper extremity Actual Weight: 119.200kg(Converted to: 262lb 13oz) Dosing Weight Clinic: 119.20kg ANNIKA VIEIRA LPN - 06/16/2011 8:28 CDT General Info Information Given By: Patient ANNIKA VIEIRA LPN - 06/16/2011 8:28 CDT Subjective Pain Symptoms: Yes ANNIKA VIEIAR LPN - 06/16/2011 8:28 CDT Pain Pain Assessment Grid Pain 1 Location: Throat Laterality: Right Intensity: 2 ANNIKA VIEIRA LPN - 06/16/2011 8:28 CDT Dependent Habits Tobacco Use/Currently Using: No Exposure to Tobacco Smoke: Other: non smoker Alcohol Use: No ANNIKA VIEIRA LPN - 06/16/2011 8:28 CDT Caffeine Use Grid Caffeine Use: Current Type: Coffee Frequency: Daily Amount: 1-2 ANNIKA VIEIRA LPN - 06/16/2011 8:28 CDT Allergy Allergies (Active) Adhesive Bandage Estimated Onset Date: Unspecified ; Reactions: Rash ; Created By: ANNIKA VIEIRA LPN; Reaction Status: Active ; Category: Drug ; Substance: Adhesive Bandage ; Type: Allergy ; Updated By: ANNIKA VIEIRA LPN; Reviewed Date: 06/16/2011 8:26 CDT Bee Stings Estimated Onset Date: Unspecified ; Created By: AMANDEEP BURRELL LPN; Reaction Status: Active ; Category: Environment ; Substance: Bee Stings ; Updated By: AMANDEEP BURRELL LPN; ReviewedDate: 06/16/2011 8:26 CDT clindamycin Estimated Onset Date: Unspecified ; Created By: AMANDEEP BURRELL LPN; Reaction Status:Active ; Category: Drug ; Substance: clindamycin ; Updated By: AMANDEEP BURRELL LPN; Reviewed Date: 06/16/2011 8:26 CDT Lipitor Estimated Onset Date: Unspecified ; Reactions: Chest Pain:Pressure/Tightness ; Created By: AMANDEEP BURRELL LPN; Reaction Status: Active ; Category: Drug ; Substance: Lipitor ; Type: Allergy ; Updated By: AMANDEEP BURRELL LPN; Reviewed Date: 06/16/2011 8:26 CDT penicillin Estimated Onset Date: Unspecified ; Reactions: Hives, SOB - Shortness of breath ; CreatedBy: AMANDEEP BURRELL LPN; Reaction Status: Active ; Category: Drug ; Substance: penicillin ; Type:Allergy ; Updated By: AMANDEEP BURRELL LPN; Reviewed Date: 06/16/2011 8:26 CDT Source: [facility] studentSN Document Id: [id number] CDT!31 documented in this encounter Plan of Treatment Not on filedocumented as of this encounter Visit Diagnoses Not on filedocumented in this encounter
--- OUTSIDE RECORDS SUMMARY | 2022-05-24 18:29 | XMS_ITS | Encounter Summary ---
:1945 Author Organization [facility] Address [address] [place] [address] Care Team Providers Name Role Phone Unavailable Primary Care Provider Unavailable Encounter Details Date Type Department Care Team Description 10/07/2011 Hospital Encounter HX [facility] Cathy Rosenthal M.D. Social History Tobacco Use [...] or relatives? How often do you attend christianity or More than 4 times per year 06/14/2019 orthodoxy services? Do you belong to any clubs or Yes 06/14/2019 organizations such as christianity groups, unions, fraternal or athletic groups, or [...] Sign Reading Time Taken Comments Blood Pressure 112/78 10/07/2011 8:56 AM SOLUTIONS OPERATOR Pulse 82 10/07/2011 8:56 AM SOLUTIONS OPERATOR Temperature - - Respiratory Rate 20 10/07/2011 8:56 AM SOLUTIONS OPERATOR Oxygen Saturation - - Inhaled Oxygen Concentration - - Weight 114 kg (251 lb 1.7 oz) 10/07/2011 8:56 AM SOLUTIONS OPERATOR Height 194 cm (6' 4.38) 10/07/2011 8:56 AM SOLUTIONS OPERATOR Body Mass Index 30.26 10/07/2011 8:56 AM SOLUTIONS OPERATOR documented in this encounter Medications at Time of Discharge Medication Sig Dispensed Refills Start Date End Date BISMUTH SUBSALICYLATE ORAL Take by mouth as 0 11/200804/01/2019 needed. documented as of this encounter Progress Notes Cathy Mccoy M.D. - 10/07/2011 8:51 AM CST FAMILY MEDICINE DATE OF SERVICE: 10/07/2011 REASON FOR VISIT He is a 66-year-old male here for diabetic check. He also has upper respiratory infection with runnynose, cough and wheeze. Sore throat is the worst symptom, though. HISTORY OF PRESENT ILLNESS His blood glucoses have been higher since he has been sick. They averaged around 180 and now the last couple days they have been in the 300s. He has been low a couple times and that is when he gets into the 70s. PAST MEDICAL, FAMILY, AND SOCIAL HISTORY Medical: 1. Skin cancer. 2. Diabetes. 3. Coronary artery disease. 4. Hypertension. 5. Hyperlipidemia. 6. Gout. 7. Cardiac arrest after acute myocardial infarction. 8. Arterial stent. 9. Colonoscopy. 10. Excision of calcaneal spur. Family: Cancer and coronary artery disease, sleep apnea, diabetes, glaucoma and cataracts, renal stones. Social: He does not smoke. He drinks 1-2 drinks of coffee daily. MEDICATIONS 1. Albuterol p.r.n. 2. Allopurinol 100 mg b.i.d. 3. Lidex 0.05% solution p.r.n. 4. Fluticasone nasal spray two sprays daily p.r.n. 5. Gemfibrozil 600 mg b.i.d. 6. Humalog 75/25. He is using 65 units b.i.d. 7. Lisinopril 5 mg daily. 8. Metformin 1000 mg b.i.d. 9. Metoprolol 12.5 mg b.i.d. 10. Nitroglycerin p.r.n. 11. Viagra 50 p.r.n. although he does not use it much. 12. Bismuth p.r.n. 13. Ibuprofen p.r.n. ALLERGIES 1. PENICILLIN. 2. LIPITOR. 3. BEE STINGS. 4. CLINDAMYCIN. 5. ADHESIVE BANDAGES. REVIEW OF SYSTEMS HEENT: No runny nose. Cough, wheeze and sore throat. Chest: No shortness of breath but he is coughing. Cardiovascular: No chest pain. Musculoskeletal: He has joint pain in his hands and fingers the last two months. We will discuss this more when he comes back next time. Neurologic: No numbness or tingling. Psychological: Occasionally he feels depressed but he says it is more related to the weather. Skin: He gets some dermatitis, that is why he uses the Lidex on his head. Endocrine: No increased thirst or urination, heat or cold intolerance. General: He has lost 10 pounds. EXAMINATION VITALS: Blood pressure 112/78. Pulse is 82. Respirations are 20. Temperature is 36.7. Weight is 113.9 kg. Height is 194 cm. HEENT: Tympanic membranes are clear. Oropharynx is mildly erythematous. NECK: Supple without lymphadenopathy or thyromegaly. He has no sinus tenderness. CHEST: Clear to auscultation bilaterally. CARDIOVASCULAR: Regular rate and rhythm. No murmur. DIAGNOSTIC DATA His hemoglobin A1c was 8.8. We discussed diet and the and did admit that he has large portions and ice cream at night. They will try to stick more to a diabetic diet. We did a rapid strep that was negative. IMPRESSION/REPORT/PLAN 1. Diabetes. 2. Hypertension. 3. Acute pharyngitis. Since his sugars are up, I am going to put him on a Z-Yves as he is probably fighting a bacteria. I am going to have him come back in six months for diabetic check and we will probably do some laboratory work for the pain in his hands and fingers. VISIT BASED ON TIME Total time spent was 25 minutes with 20 of it spent in counseling and coordination of care. SILVIANO:erwin Doc#: [id number] cc: Electronically Signed By: CATHY MCCOY MD On: 10/15/2011 01:44 PM Source: [facility] ISJDICTAPHONESYS Document Id: [id number] TIONS OPERATOR documented in this encounter Nursing Notes Samira Lu - 11/28/2011 9:04 AM CDT Log reveiw Spoke with Mrs. Chance related to Ave's blood sugar log that he dropped off. She confirmed that he does not miss an insulin dose. Noted much improvement. He had an illness during this time which included high fever. CDE reminded Mrs Chance of the importance of hydration with a fluid that contains carbohydrates when a patient can not eat but continues to take his medications. His blood sugar that day was 67. She confirmed that she understands that importance and he had been drinking water and juices. His A1c is due in December 2011 and he will have that done then. A1c in Q Electronically Signed By: SAMIRA LU On: 11/28/2011 09:08 AM Source: [facility] POWERCHART Document Id: [id number] documented in this encounter Miscellaneous Notes Miscellaneous - Cathy Mccoy M.D. - 10/07/2011 10:05 AM CST Ambulatory Patient Summary [place] [address] Visit Information Name: AVE [facility] Current Date: 10/07/2011 10:05:13 Primary Care Provider: CATHY MCCOY MD Your Medications Here is a list of your medications. It is important to take your medications as directed. Use a pillbox or chart to help remind you to take your medications. Please let your doctor or nurse know if you have problems taking your medications. Medication/Strength Dose Route Frequency Indications/Special Instructions/Comments azithromycin (Azithromycin 5 Day Dose Pack 250 mg oral tablet) 2 tablets on day 1, then 1 tablet on days 2-5 Oral as directed for 5 Days albuterol (albuterol CFC free 90 mcg/inh inhalation aerosol) 2 puff(s) Inhalation every 4 hours as needed for Shortness of Breath allergic triggered asthma metoprolol (metoprolol 25 mg oral tablet) 12.5 mg Oral two times a day metformin (metformin 1000 mg oral tablet) 1,000 mg Oral two times a day with meals lisinopril (lisinopril 5 mg oral tablet) 5 [...] 1 cecile Topical two times a day insulin lispro protamine-insulin lispro (Humalog Mix 75/25 subcutaneous suspension) See [id number] units bid fluticasone nasal (fluticasone nasal 0.05 mg/inh spray) [...] upset stomach ibuprofen (ibuprofen) Oral as needed Your Allergies & Intolerances Substance Reaction Symptoms Category Comments clindamycin Drug penicillin Hives Drug penicillin SOB - Shortness of breath Drug Lipitor Chest Pain:Pressure/Tightness Drug Adhesive Bandage Rash Drug Bee Stings Environment Your Problem List Problem Status Onset Comments Diabetes Mellitus without Mention of Complication, Type II or Unspecified Type, Not Stated as Uncontrolled Active Coronary artery disease-unsp. type vessel Active [...] renal stone Active Skin cancer Active Your Recommendations We want to make sure you get the tests, immunizations, and guidance you need to stay healthy. Here is a customized list of recommendations, based on information we have in your medical record. Your doctor may have additional recommendations for you, based on your personal medical history and risk factors. You can help us by calling us to make an appointment when you are due for your tests. Additional information regarding recommendations: Test/Treatment Last Done Next Due Additional Information Diabetes: A1C every 6 months 09/28/2011 03/29/2012 Average of blood sugar over a 2-3 month timeframe. Diabetes and/or Vascular: Consider aspirin or antiplatelet therapy 03/13/2009 Ongoing May reduce your risk of heart attack and stroke if on aspirin or anti- platelet therapy. Diabetes: Creatinine every 1 year 03/01/2011 02/29/2012 Diabetes: Diabetes Education every 1 year 10/07/2011 Diabetes: Eye Exam every 1 year 03/01/2011 02/29/2012 Diabetes: Foot Exam every 1 year 03/01/2011 02/29/2012 Diabetes: Microalbumin/Urine Protein every 1 year 03/01/2011 02/29/2012 Diabetes and/or Vascular: LDL every 1 year 09/28/2011 09/27/2012 Health Assessment every 1 year 10/07/2011 10/06/2012 Screening Colonoscopy or Flex Sig or Occult Blood 06/23/2008 06/21/2018 Checks for signs of cancer of the colon. Lipid Panel every 5 years Age 20-75 09/28/2011 09/26/2016 Checks blood for good (HDL) and bad (LDL) cholesterol. Know your numbers, they are one indicator of your risk for heart attack and stroke. Vaccine: Pneumococcal Once 08/09/2006 Completed Immunization to help prevent you from getting 23 kinds of pneumococcal bacteria that can lead to pneumonia, bacteremia and meningitis. Vaccine: Tetanus every 10 years 08/25/2011 08/22/2021 Immunization to help prevent you from getting the serious disease Tetanus (Lockjaw). Your Upcoming Appointments Date Time Location Reason Provider No Appointments found Your Goals/Additional instructions: Source: [facility] POWERCHART Document Id: [id number] TIONS OPERATOR Miscellaneous - Cathy Mccoy M.D. - 10/07/2011 10:05 AM CST Ambulatory Depart Summary [facility] [place] - [address] [address] Visit Information Name: [address] [facility] Current Date: 10/07/2011 10:05:09 Primary Care Provider: CATHY MCCOY MD Your Medications Here is a list of your medications. It is important to take your medications as directed. Use a pillbox or chart to help remind you to take your medications. Please let your doctor or nurse know if you have problems taking your medications. Medication/Strength Dose Route Frequency Indications/Special Instructions/Comments azithromycin (Azithromycin 5 Day Dose Pack 250 mg oral tablet) 2 tablets on day 1, then 1 tablet on days 2-5 Oral as directed for 5 Days albuterol (albuterol CFC free 90 mcg/inh inhalation aerosol) 2 puff(s) Inhalation every 4 hours as needed for Shortness of Breath allergic triggered asthma metoprolol (metoprolol 25 mg oral tablet) 12.5 mg Oral two times a day metformin (metformin 1000 mg oral tablet) 1,000 mg Oral two times a day with meals lisinopril (lisinopril 5 mg oral tablet) 5 [...] 1 cecile Topical two times a day insulin lispro protamine-insulin lispro (Humalog Mix 75/25 subcutaneous suspension) See [id number] units bid fluticasone nasal (fluticasone nasal 0.05 mg/inh spray) [...] upset stomach ibuprofen (ibuprofen) Oral as needed Your Allergies & Intolerances Substance Reaction Symptoms Category Comments clindamycin Drug penicillin Hives Drug penicillin SOB - Shortness of breath Drug Lipitor Chest Pain:Pressure/Tightness Drug Adhesive Bandage Rash Drug Bee Stings Environment Your Problem List Problem Status Onset Comments Diabetes Mellitus without Mention of Complication, Type II or Unspecified Type, Not Stated as Uncontrolled Active Coronary artery disease-unsp. type vessel Active [...] renal stone Active Skin cancer Active Your Recommendations We want to make sure you get the tests, immunizations, and guidance you need to stay healthy. Here is a customized list of recommendations, based on information we have in your medical record. Your doctor may have additional recommendations for you, based on your personal medical history and risk factors. You can help us by calling us to make an appointment when you are due for your tests. Additional information regarding recommendations: Test/Treatment Last Done Next Due Additional Information Diabetes: A1C every 6 months 09/28/2011 03/29/2012 Average of blood sugar over a 2-3 month timeframe. Diabetes and/or Vascular: Consider aspirin or antiplatelet therapy 03/13/2009 Ongoing May reduce your risk of heart attack and stroke if on aspirin or anti- platelet therapy. Diabetes: Creatinine every 1 year 03/01/2011 02/29/2012 Diabetes: Diabetes Education every 1 year 10/07/2011 Diabetes: Eye Exam every 1 year 03/01/2011 02/29/2012 Diabetes: Foot Exam every 1 year 03/01/2011 02/29/2012 Diabetes: Microalbumin/Urine Protein every 1 year 03/01/2011 02/29/2012 Diabetes and/or Vascular: LDL every 1 year 09/28/2011 09/27/2012 Health Assessment every 1 year 10/07/2011 10/06/2012 Screening Colonoscopy or Flex Sig or Occult Blood 06/23/2008 06/21/2018 Checks for signs of cancer of the colon. Lipid Panel every 5 years Age 20-75 09/28/2011 09/26/2016 Checks blood for good (HDL) and bad (LDL) cholesterol. Know your numbers, they are one indicator of your risk for heart attack and stroke. Vaccine: Pneumococcal Once 08/09/2006 Completed Immunization to help prevent you from getting 23 kinds of pneumococcal bacteria that can lead to pneumonia, bacteremia and meningitis. Vaccine: Tetanus every 10 years 08/25/2011 08/22/2021 Immunization to help prevent you from getting the serious disease Tetanus (Lockjaw). Your Upcoming Appointments Date Time Location Reason Provider No Appointments found Your Goals/Additional instructions: Source: [facility] POWERCHART Document Id: [id number] TIONS OPERATOR Miscellaneous - Conversion, Historical Provider Ser - 10/07/2011 9:09 AM SOLUTIONS OPERATOR Health Assessment Health Assessment Entered On: 10/07/2011 9:10 SOLUTIONS OPERATOR Performed On: 10/07/2011 9:09 SOLUTIONS OPERATOR by RENZO HWANG Health Assessment Complete Health Assessment Complete or Modified : Annual Health Assessment Annual Health Assessment Completed : Yes RENZO HWANG - 10/07/2011 9:09 SOLUTIONS OPERATOR Nutrition Nutrition Risk Factors by History Adult : None RENZO HWANG 10/07/2011 9:09 SOLUTIONS OPERATOR Functional Current Daily Living Assistance : None RENZO HWANG 10/07/2011 9:09 SOLUTIONS OPERATOR Dependent Habits Tobacco Use/Currently Using : No Exposure to Tobacco Smoke : Other: non smoker Smoking Status : Never smoker RENZO HWANG 10/07/2011 9:09 SOLUTIONS OPERATOR Caffeine Use Grid Caffeine Use : Current Type : Coffee Frequency : Daily Amount : 1-2 RENZO HWANG 10/07/2011 9:09 SOLUTIONS OPERATOR Psychosocial Domestic Abuse Concerns : None RENZO HWANG 10/07/2011 9:09 SOLUTIONS OPERATOR Advance Directive Advanced Directives : No RENZO HWANG 10/07/2011 9:09 SOLUTIONS OPERATOR Educ Needs Learning Style Preference Adult Grid Patient : Printed materials Family : Printed materials RENZO HWANG 10/07/2011 9:09 SOLUTIONS OPERATOR Source: [facility] SalonBookrCHART Document Id: [id number] SOLUTIONS OPERATOR!26 Miscellaneous - Conversion, Historical Provider Ser - 10/07/2011 8:56 AM SOLUTIONS OPERATOR Adult Motorcycle Riding Instructor Intake/History Adult Motorcycle Riding Instructor Intake/History Entered On: 10/07/2011 9:01 SOLUTIONS OPERATOR Performed On: 10/07/2011 8:56 SOLUTIONS OPERATOR by RENZO HWANG Chief Complaint : Diabetic check Temperature Core : 36.7C(Converted to: 98.1DegF) Peripheral Pulse Rate : 82/min Respiratory Rate : 20/min Systolic Blood Pressure : 112mmHg Diastolic Blood Pressure : 78mmHg NIBP Mean : 89mmHg BP Location : Left upper extremity Blood Pressure Cuff Size : Large Height : 194cm(Converted to: 6ft 4inch(es), 76.38inch(es)) Actual Weight : 113.9kg(Converted to: 251lb 2oz) Weight Source : Standing scale Dosing Weight Clinic : 113.90kg Clinic BSA : 2.48 Body Mass Index : 30.26kg/m2 RENZO HWANG 10/07/2011 8:56 SOLUTIONS OPERATOR General Info Information Given By : Patient, Spouse Preferred Communication Mode : Verbal Languages : Tamazight RENZO HWANG 10/07/2011 8:56 SOLUTIONS OPERATOR Subjective Pain Symptoms : Yes RENZO HWANG 10/07/2011 8:56 SOLUTIONS OPERATOR Pain Pain Assessment Grid Pain 1 Location : Throat Laterality : Right Intensity : 4 RENZO HWANG 10/07/2011 8:56 SOLUTIONS OPERATOR Dependent Habits Tobacco Use/Currently Using : No Exposure to Tobacco Smoke : Other: non smoker Smoking Status : Never smoker RENZO HWANG 10/07/2011 8:56 SOLUTIONS OPERATOR Caffeine Use Grid Caffeine Use : Current Type : Coffee Frequency : Daily Amount : 1-2 REZNO HWANG 10/07/2011 8:56 SOLUTIONS OPERATOR Allergy Allergies (Active) Adhesive Bandage Estimated Onset Date: Unspecified ; Reactions: Rash ; Created By: NOREEN HERNANDEZ LPN; Reaction Status: Active ; Category: Drug ; Substance: Adhesive Bandage ; Type: Allergy ; Updated By: NOREEN HERNANDEZ LPN; Reviewed Date: 06/16/2011 8:26 CDT Bee [...] LPN; Reviewed Date: 06/16/2011 8:26 CDT Source: [facility] POWERCHART Document Id: [id number] SOLUTIONS OPERATOR!39 Miscellaneous - Cathy Mccoy M.D. - 10/07/2011 8:51 AM CST CL October [address] [address] [place] [address] Patient Date of : [address]: We checked a rapid strep on you in the clinic. On culture that came back negative. Hope you are feeling better. If you have questions, please contact me. Sincerely, Cathy Mccoy M.D. [facility] MKW:rksctd Doc#: [id number] Electronically Signed By: CATHY MCCOY MD On: 10/12/2011 11:08 AM This document has images extracted. Source: [facility] ISJDICTAPHONESYS Document Id: [id number] TIONS OPERATOR documented in this encounter Plan of Treatment Not on filedocumented as of this encounter Procedures Procedure Name Priority Date/Time Associated Diagnosis Comme nts RAPID STREP A Routine 10/07/2011 9:50 AM Results for this SCREEN SOLUTIONS OPERATOR procedure are i n the results section. RAPID STREP A Routine 10/07/2011 9:50 AM Results for this SCREEN SOLUTIONS OPERATOR procedure are i n the results section. documented in this encounter Results Rapid Strep A Screen (10/07/2011 9:50 AM SOLUTIONS OPERATOR) [facility] [employer] Method Time Signature HXRapid Strep POWERCHART Confirmation HXPre Negative for POWERCHART Group A Strep by culture. HXFinal Negative for POWERCHART Group A Strep by culture. Specimen Anatomical Collection Method Collection Time Receive d Time (Source) Location / / Volume Laterality Throat 10/07/2011 9:50 AM 2 9:50 SOLUTIONS OPERATOR AM SOLUTIONS OPERATOR Cathy Mccoy M.D. LAB MICROBIOLOGY - GENERAL O [place] Performing Organization Address [facility] Phon e Number POWERCHART Rapid Strep A Screen (10/07/2011 9:50 AM SOLUTIONS OPERATOR) [facility] [employer] Method Time Signature HXStrep A POWERCHART Screen Rapid HXFinal Negative for POWERCHART Strep Group A by rapid screen. HXFinal Culture POWERCHART confirmation to follow. Specimen (Source) Anatomical Collection Method Collection Time Re ceived Time Location / / Volume Laterality Throat 10/07/2011 9:50 AM SOLUTIONS OPERATOR Cathy Mccoy M.D. LAB MICROBIOLOGY - GENERAL O CRISTHI[place] Performing Organization Address [facility] Phon e Number POWERCHART documented in this encounter Visit Diagnoses Not on filedocumented in this encounter
--- OUTSIDE RECORDS SUMMARY | 2022-05-24 18:29 | XMS_ITS | Encounter Summary ---
:1945 Author Organization [facility] Address [address] [place] [address] Care Team Providers Name Role Phone Unavailable Primary Care Provider Unavailable Encounter Details Date Type Department Care Team Description 01/10/2013 Hospital Encounter H[facility] [place]athy Rosenthal M.D. Social History [...] Sign Reading Time Taken Comments Blood Pressure 124/60 01/10/2013 1:46 PM CDT Pulse 64 01/10/2013 1:46 PM CDT Temperature - - Respiratory Rate 20 01/10/2013 1:46 PM CDT Oxygen Saturation - - Inhaled Oxygen Concentration - - Weight 122 kg (268 lb 8.3 oz) 01/10/2013 1:46 PM CDT Height 194 cm (6' 4.38) 01/10/2013 1:46 PM CDT Body Mass Index 32.36 01/10/2013 1:46 PM CDT documented in this encounter Medications at Time of Discharge Medication Sig Dispensed Refills Start Date End Date BISMUTH SUBSALICYLATE ORAL Take by mouth as 0 11/200804/01/2019 needed. documented as of this encounter Progress Notes Cathy Mccoy M.D. - 01/10/2013 1:38 PM CDT [id number] LOCATION: [facility] CHIEF COMPLAINT/REASON FOR VISIT A 67-year-old male here for diabetic check. He does mention that he has got a rash on both of his arms. We took him off his metformin, thinking that might be causing it. It never went away completely, but I am not so sure that it is a rash. It does not itch at all. Asked him to come back for biopsy ofone of the lesions. They are pink and smooth on top, just a little bit pinker than the surrounding tissue. He would like to go back on the metformin because he thinks that he will probably have a steadier control of his diabetes if he does that and he may not need as much insulin. He recently had a gout attack and was seen in urgent care and got indomethacin. He has been on allopurinol 100 mg 2 tabs d aily, but he may need to go up to 300 mg. He has pain in his feet constantly, more on the lateral metatarsal side. The gout was on the right great metatarsal. His sugar in the morning is 98 to 135, butin the evening if he has not been eating much 170, if he snacks it is 250 to 350. He has not had anylows since he has decreased his working from last summer, but he is going to be starting to do more activities and he is a little worried about how his insulin will go. He also mentions that he thinks allergies are affecting his breathing, for the last 2-3 weeks his breathing has been worse. PAST MEDICAL/SURGICAL HISTORY Acute myocardial infarction, arterial stent, cardiac arrest, coronary artery disease, diabetes, gout, hypertension, hyperlipidemia, skin cancer, colonoscopy and excision of a calcaneal spur. FAMILY HISTORY Noncontributory. SOCIAL HISTORY Nonsmoker, although his did smoke for quite some time. Drinks 1-2 cups of coffee daily. CURRENT MEDICATIONS Albuterol CFC as needed. Allopurinol 100 mg 2 tabs a day. EpiPen as needed. Fluticasone nasal spray daily. Gemfibrozil 600 mg 2 times a day. Humalog 75/25 at 83 units twice a day. Ibuprofen as needed. Indomethacin 25 mg 3 times a day as needed for gout pain. Lidex 0.05% topical solution twice a day. Lisinopril 5 mg daily. Metformin 1000 mg twice a day. We are going to restart that, he has not been on it for a little while. Metoprolol 25 mg half tab twice a day. Nitroglycerin 0.4 mg sublingual as needed. Pepto-Bismol as needed. Viagra 50 mg 1 tab 1 hour prior to sexual activity. ALLERGIES PENICILLIN. LIPITOR. BEE STINGS. CLINDAMYCIN. ADHESIVE TAPE. ASPIRIN. SYSTEMS REVIEW See HPI. Remainder negative. VITAL SIGNS Blood pressure 124/60, pulse 64, respirations 20, temp 36.8, weight 121.8 kg height 194 cm. PHYSICAL EXAMINATION CHEST: Clear to auscultation bilaterally. CARDIOVASCULAR: Regular rate and rhythm. No murmur. FEET: Normal pulse bilaterally. He has absent toe sensation on the right foot, but not on the left. IMPRESSION/REPORT/PLAN 1. Diabetes. 2. Shortness of breath. 3. Gout. PLAN: We are going to check a uric acid and if it is elevated may increase him to 300 mg daily of allopurinol. Restarted metformin 1000 mg twice a day as mentioned above. Check uric acid, hemoglobin A1c for gout and diabetes. For shortness of breath we are going to do a basic, proBNP and CBC. He should return as needed and in 6 months. ADMINISTRATIVE BILLING Total time spent was 17 minutes, with 10 minutes in counseling and coordination of care. Cathy Mccoy M.D./pos Electronically Signed By: CATHY MCCOY MD On: 03/14/2013 12:06 PM Source: [facility] MHSDOLBEYNONRADSYS Document Id: [id number] documented in this encounter Nursing Notes Samira Lu - 02/11/2013 2:30 PM CDT DSME/CDE phone call follow up Spoke with Ave regarding his blood sugar log that he dropped off. 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 He is using between 70-82 Units of 75/25 BID. 02/01/13-02/07/13 fasting 102-181 pre evening meal 70-176 pc 103-167 Will continue to send log to CDE Electronically Signed By: SAMIRA LU On: 02/11/2013 02:33 PM Source: [facility] Replise Document Id: [id number] documented in this encounter Miscellaneous Notes Miscellaneous - Cathy Mccoy M.D. - 03/17/2013 8:28 PM CDT RE: General Message From: CATHY MCCOY MD To: HARMONY CHARLES; Sent: 03/17/2013 20:28:56 CDT Subject: RE: General Message done From: HARMONY CHARLES To: CATHY MCCOY MD; Sent: 01/15/2013 14:08:18 CDT Subject: General Message Missing orders/charges for this patient DOS 01/10/13 Please remember to backdate to this DOS 01/10/13 Thank you, Harmony [facility] Document Id: [id number] Electronically signed by Gricelda [facility] Escobedo [id number] at 02/08/2017 3:48 AM CDT Miscellaneous - Cathy Mccoy M.D. - 01/11/2013 2:26 PM CDT General Message From: CATHY MCCOY MD Sent: 01/11/2013 14:26:33 CDT Subject: General Message gave results no change in plan Source: [facility] POWERCHART Document Id: [id number] Miscellaneous - Cathy Mccoy M.D. - 01/11/2013 2:26 PM CDT Normal Results Letter [address] [address] [facility] [id number] Dear A[facility], I am pleased to report that your results from the following diagnostic test(s) are normal. Please follow up with us as we discussed during your visit or sooner if you have any concerns. If you have questions or concerns, please do not hesitate to call our office. Result Name Current Result Previous Result Normal Range Sodium Lvl (mmol/L) 141 01/10/2013 135 - 145 Potassium Lvl (mmol/L) 4.8 01/10/2013 3.5 - 5.0 Chloride (mmol/L) (H) 108 01/10/2013 95 - 106 CO2 (mmol/L) 21 01/10/2013 21 - 30 Pro B Aster Pep (pg/mL) (H) 107 01/10/2013 0 - 95 Glucose Lvl (mg/dL) (H) 229 01/10/2013 70 - 139 Creatinine (mg/dL) 1.1 01/10/2013 0.9 06/26/2012 0.8 - 1.3 EGFR (MDRD) >60.0 01/10/2013 >60.0 06/26/2012 >=60.0 - EGFR (MDRD) >60 01/10/2013 >60 06/26/2012 >=60 - BUN (mg/dL) 18 01/10/2013 5 - 24 Calcium Lvl (mg/dL) 9.1 01/10/2013 8.4 - 10.3 Uric Acid (mg/dL) 5.0 01/10/2013 2.0 - 5.5 Hgb A1c (%) (H) 7.9 01/10/2013 (H) 7.6 06/26/2012 (H) 6.8 12/30/2011 4.8 - 5.9 Hgb (g/dL) 14.7 01/10/2013 13.5 - 17.5 Hct (%) 43.9 01/10/2013 38.8 - 50.0 WBC (x10(9)/L) 4.8 01/10/2013 3.5 - 10.5 RBC (x10(12)/L) 4.42 01/10/2013 4.32 - 5.72 MCV (fL) (H) 99.3 01/10/2013 81.0 - 95.0 RDW (%) 12.9 01/10/2013 11.8 - 15.6 Platelet (x10(9)/L) 158 01/10/2013 150 - 450 Neutro % (%) 54.2 01/10/2013 44.0 - 71.0 Lymph % (%) 35.3 01/10/2013 17.0 - 42.0 [place] % (%) 8.6 01/10/2013 4.0 - 15.0 Eos % (%) 0.9 01/10/2013 0.0 - 7.0 Baso % (%) 1.0 01/10/2013 0.0 - 3.0 Neutro Absolute (10(9)/L) 2.70 01/10/2013 1.70 - 7.00 Lymph Absolute (x10(9)/L) 1.70 01/10/2013 0.90 - 2.90 [place] Absolute (x10(9)/L) 0.40 01/10/2013 0.30 - 0.90 Eos Absolute (x10(9)/L) (L) 0.00 01/10/2013 0.05 - 0.50 Baso Absolute (x10(9)/L) 0.00 01/10/2013 0.00 - 0.30 Differential? Auto 01/10/2013 Sincerely, CATHY MCCOY [address] [place] [id number] Electronic Signature Electronically Signed By: CATHY MCCOY MD On: 11 Jan 2013 This document has images extracted. Source: [facility] POWERCHART Document Id: [id number] Miscellaneous - Cathy Mccoy M.D. - 01/10/2013 2:21 PM CDT Ambulatory Patient Summary [facility] - [address] [address] Visit Information Name: [facility] Number: [phone] Current Date: 01/10/2013 14:21:10 Physicians Attending Provider: CATHY MCCOY MD Primary Care Provider: CATHY MCCOY MD Your Medications Here is a list of your medications. It is important to take your medications as directed. Use a pillbox or chart to help remind you to take your medications. Please let your doctor or nurse know if you have problems taking your medications. Medication/Strength Dose Route Frequency Indications/Special Instructions/Comments metformin (metformin 1000 mg oral tablet) 1,000 mg Oral two times a day with meals nitroglycerin (nitroglycerin 0.4 mg sublingual tablet) 0.4 [...] lispro (Humalog Mix 75/25 subcutaneous suspension) See [id number] units bid gemfibrozil (gemfibrozil 600 mg oral [...] No Appointments found Your Goals/Additional instructions: Source: [facility] POWERCHART Document Id: [id number] Miscellaneous - Cathy Mccoy M.D. - 01/10/2013 2:21 PM CDT Ambulatory Depart Summary [address] [address] Visit Information Name: [facility] Number: [phone] Visit Date: 01/10/2013 14:21:09 Attending Provider: CATHY MCCOY MD Primary Care [...] medications. Medication/Strength Dose Route Frequency Indications/Special Instructions/Comments metformin (metformin 1000 mg oral tablet) 1,000 mg Oral two times a day with meals nitroglycerin (nitroglycerin 0.4 mg sublingual tablet) 0.4 [...] lispro (Humalog Mix 75/25 subcutaneous suspension) See [id number] units bid gemfibrozil (gemfibrozil 600 mg oral [...] clarification. Additional Information: Yes - . Source: [facility] POWERCHART Document Id: [id number] Miscellaneous - Cathy Mccoy M.D. - 01/10/2013 2:10 PM CDT Quality Measures Quality Measures Entered On: 01/10/2013 14:11 CDT Performed On: 01/10/2013 14:10 CDT by CATHY MCCOY MD Diabetes Date of Last Foot Exam : 01/10/2013 CDT CATHY MCCOY MD - 01/10/2013 14:10 CDT Foot Exam Grid Left foot exam Right foot exam Dorsalis Pedis Pulse : Normal Normal Post Tibial Pulse : Normal Normal Capillary Refill : Less than 3 seconds Less than 3 seconds 10 gm Monofilament Sensation Check : Intact Absent Comments : may be due to back prob CATHY MCCOY MD - 01/10/2013 14:10 CDT CATHY MCCOY MD - 01/10/2013 14:10 CDT Source: [employer] Document Id: [id number] CDT!15 Miscellaneous - Shirin Keen L.P.N. - 01/10/2013 1:46 PM CDT Adult Powder Guard Intake/History Adult Powder Guard Intake/History Entered On: 01/10/2013 13:49 CDT Performed On: 01/10/2013 13:46 CDT by SHIRIN KEEN LPN Intake Chief Complaint : daibetic check Temperature Core : 36.8 DegC(Converted to: 98.2 DegF) Peripheral Pulse Rate : 64 /min Respiratory Rate : 20 /min Heart Rhythm : Regular Systolic Blood Pressure : 124 mmHg Diastolic Blood Pressure : 60 mmHg NIBP Mean : 81 mmHg BP Location : Left upper extremity Blood Pressure Cuff Size : Large Height : 194 cm(Converted to: 6 ft 4 inch(es), 76.38 inch(es)) Actual Weight : 121.8 kg(Converted to: 268 lb 8 oz) Dosing Weight Clinic : 121.8 kg Clinic BSA : 2.56 Body Mass Index : 32.36 kg/m2 SHIRIN KEEN [facility] - 01/10/2013 13:46 CDT General Info Information Given By : Patient Preferred Communication Mode : Verbal Languages : Cypriot SHIRIN KEEN [facility] - 01/10/2013 13:46 CDT Subjective Pain Symptoms : Yes SHIRIN KEEN [facility] - 01/10/2013 13:46 CDT Pain Pain Assessment Grid Pain 1 Location : Foot Laterality : Bilateral SHIRIN KEEN [facility] - 01/10/2013 13:46 CDT Dependent Habits Tobacco Use/Currently Using : No Exposure to Tobacco Smoke : Other: non smoker Smoking Status : Never smoker SHIRIN KEEN [facility] - 01/10/2013 13:46 CDT Caffeine Use Grid Caffeine Use : Current Type : Coffee Frequency : Daily Amount : 1-2 SHIRIN KEEN [employer] - 01/10/2013 13:46 CDT Source: [employer] Document Id: [id number] CDT!38 documented in this encounter Plan of Treatment Not on filedocumented as of this encounter Procedures Procedure Name Priority Date/Time Associated Comments Diagnosis AUTOMATED Routine 01/10/2013 2:25 PM Results f or this DIFFERENTIAL, B CDT procedure ar e in the results section. NT-PRO B-TYPE Routine 01/10/2013 2:25 PM Results for this NATRIURETIC PEPTIDE CDT procedur e are in (BNP), S the results section. CBC WITH Routine 01/10/2013 2:25 PM Results f or this DIFFERENTIAL, B CDT procedure ar e in the results section. URIC ACID, S/P Routine 01/10/2013 2:25 PM Results for this CDT procedure are i n the results section. HEMOGLOBIN A1C, B Routine 01/10/2013 2:25 PM Resu lts for this CDT procedure are i n the results section. BASIC METABOLIC Routine 01/10/2013 2:25 PM Result s for this PANEL, S/P CDT procedure are i n the results section. documented in this encounter Results (ABNORMAL) Automated Differential (01/10/2013 2:25 PM CDT) Patholo gist Method Time Signature Neutro % 54.2 44.0 - POWERCHART 71.0 Lymphocytes % 35.3 17.0 - POWERCHART 42.0 HX [place] % 8.6 4.0 - 15.0 POWERCHART HX Eos % 0.9 0.0 - 7.0 POWERCHART HX Baso % 1.0 0.0 - 3.0 POWERCHART Absolute 2.70 1.70 - POWERCHART Neutrophils 7.00 109L Lymphocytes 1.70 0.90 - POWERCHART 2.90 X109L Monocytes 0.40 0.30 - POWERCHART 0.90 X109L Eosinophils 0.00 (L) 0.05 - POWERCHART 0.50 X109L Absolute 0.00 0.00 - POWERCHART Basophil 0.30 X109L Specimen Anatomical Collection Method Collection Time Receive d Time (Source) Location / / Volume Laterality Blood 01/10/2013 2:25 PM 3 2:25 CDT PM CDT Cathy Mccoy M.D. LAB BLOOD ADD-ON Performing Organization Address City/[facility]/ZIP Code Phon e Number POWERCHART (ABNORMAL) CBC with Differential (01/10/2013 2:25 PM CDT) [facility] Method Time Signature Leukocytes 4.8 3.5 - 10.5 POWERCHART X109L Erythrocytes 4.42 4.32 - POWERCHART 5.72 [id number] Hemoglobin 14.7 13.5 - POWERCHART 17.5 GDL Hematocrit 43.9 38.8 - POWERCHART 50.0 MCV 99.3 (H) 81.0 - POWERCHART 95.0 FL HX RDW 12.9 11.8 - POWERCHART 15.6 Platelet Count 158 150 - 450 POWERCHART X109L HXDifferential? Auto POWERCHART Specimen (Source) Anatomical Collection Method Collection Time Re ceived Time Location / / Volume Laterality Blood 01/10/2013 2:25 PM CDT Cathy Mccoy M.D. LAB BLOOD ADD-ON Performing Organization Address City/[facility]/ZIP Code Phon e Number POWERCHART (ABNORMAL) BMP (Basic Metabolic Panel) (01/10/2013 2:25 PM CDT) athologist Signature Sodium, S 141 135 - 145 POWERCHART MMOLL Potassium, S 4.8 3.5 - 5.0 POWERCHART MMOLL Chloride, S 108 (H) 95 - 106 POWERCHART MMOLL CO2 Total 21 21 - 30 POWERCHART MMOLL BUN (Blood Urea 18 5 - 24 POWERCHART Nitrogen), S MGDL Creatinine 1.1 0.8 - 1.3 POWERCHART MGDL Calcium, Total, 9.1 8.4 - 10.3 POWERCHART S MGDL HXeGFR (MDRD) >60.0 >=60.0 POWERCHART Comment: Results are in mL/min/1.73m squared CKD Stage I: GFR > 90 CKD Stage II: GFR 60 to 89 CKD Stage III: GFR 30 to 59 CKD Stage IV: GFR 15 to 29 CKD Stage V: GFR < 15 or Dialysis eGFR Black/ >60 >=60 PO WERCHART Glucose 229 (H) 70 - 139 MGDL POWERCHART Specimen (Source) Anatomical Collection Method Collection Time Re ceived Time Location / / Volume Laterality Blood 01/10/2013 2:25 PM CDT Cathy Mccoy M.D. LAB BLOOD ADD-ON Performing Organization Address City/State/ZIP Code Phon e Number POWERCHART (ABNORMAL) NT-Pro B-Type Natriuretic Peptide (BNP) (01/10/2013 2:25 PM CDT) Analysis Performed At Patho logist Time Signature B-Type 107 (H) 0 - 95 POWERCHART Natriuretic PGML Peptide (BNP) Specimen (Source) Anatomical Collection Method Collection Time Re ceived Time Location / / Volume Laterality Blood 01/10/2013 2:25 PM CDT Cathy Mccoy M.D. LAB BLOOD ADD-ON Performing Organization Address City/State/ZIP Code Phon e Number POWERCHART (ABNORMAL) Hemoglobin A1c (01/10/2013 2:25 PM CDT) P athologist Signature Hemoglobin A1c, 7.9 (H) 4.8 - 5.9 POWERCHART B Specimen (Source) Anatomical Collection Method Collection Time Re ceived Time Location / / Volume Laterality Blood 01/10/2013 2:25 PM CDT Cathy Mccoy M.D. LAB BLOOD ADD-ON Performing Organization Address City/State/ZIP Code Phon e Number POWERCHART Uric Acid (01/10/2013 2:25 PM CDT) P athologist Signature Uric Acid, S 5.0 2.0 - 5.5 POWERCHART MGDL Specimen (Source) Anatomical Collection Method Collection Time Re ceived Time Location / / Volume Laterality Blood 01/10/2013 2:25 PM CDT Cathy Mccoy M.D. LAB BLOOD ADD-ON Performing Organization Address City/State/ZIP Code Phon e Number POWERCHART documented in this encounter Visit Diagnoses Not on filedocumented in this encounter
--- OUTSIDE RECORDS SUMMARY | 2022-05-24 18:29 | XMS_ITS | Encounter Summary ---
:1945 Author Organization [facility] Address [address] [place] [address] Care Team Providers Name Role Phone Unavailable Primary Care Provider Unavailable Encounter Details Date Type Department Care Team Description 06/26/2012 Hospital Encounter [facility]Jayla Gutiérrez M.D. Social History Tobacco Use Types Packs/Day [...] Priority Date/Time Associated Diagnosis Comme nts DX WRIST LEFT 3+ Routine 06/26/2012 10:04 AM Resu lts for this VIEWS CDT procedure are i n the results section. documented in this encounter Results DX Wrist Left 3+ Views (06/26/2012 10:04 AM CDT) Anatomical Region Laterality Modality Upper Extremity, Wrist Left Radiographic Imag ing Specimen (Source) Anatomical Collection Method Collection Time Re ceived Time Location / / Volume Laterality 06/26/2012 10:04 AM CDT Addenda Addendum by ProviderAnder M.D. o n 06/26/2012 10:04 AM CDT RAD^^^MA XR Wrist Left 3 or more views 06/26/2012 10:04:00 Impressions 06/26/2012 10:28 AM CDT No evidence for acute fracture Narrative 06/26/2012 10:28 AM CDT EXAM: XR Wrist Left 3 or more views INDICATION: wrist pain COMPARISON: None. FINDINGS: Soft tissue swelling is noted over the dorsal aspect of the wrist There are several small corticated densi ties located adjacent to the pisiform. These are probably related to old trauma. Procedure Note Gennaro Huerta D.O. / Provider, Patti negro M.D. - 02/01/2017 EXAM: XR Wrist Left 3 or more views INDICATION: wrist pain COMPARISON: None. FINDINGS: Soft tissue swelling is noted over the dorsal aspect of the wrist There are several small corticated densi ties located adjacent to the pisiform. These are probably related to old trauma. IMPRESSION: No evidence for acute fractu re Velma Phillips.TKamila(R)(CT), R.TKamila(R)(M) IMG DIAGNOSTIC IMAGING PROCEDURES documented in this encounter Visit Diagnoses Not on filedocumented in this encounter
--- OUTSIDE RECORDS SUMMARY | 2022-05-24 18:29 | XMS_ITS | Encounter Summary ---
:1945 Author Organization [facility] Address [address] [place] [address] Care Team Providers Name Role Phone Unavailable Primary Care Provider Unavailable Encounter Details Date Type Department Care Team Description 06/26/2012 Hospital Encounter HX [facility] [place] Cathy Rosenthal M.D. Social History Tobacco Use [...] Sign Reading Time Taken Comments Blood Pressure 116/78 06/26/2012 8:55 AM CDT Pulse 56 06/26/2012 8:55 AM CDT Temperature - - Respiratory Rate 16 06/26/2012 8:55 AM CDT Oxygen Saturation - - Inhaled Oxygen Concentration - - Weight 118 kg (260 lb 5.8 oz) 06/26/2012 8:55 AM CDT Height 194 cm (6' 4.38) 06/26/2012 8:55 AM CDT Body Mass Index 31.38 06/26/2012 8:55 AM CDT documented in this encounter Medications at Time of Discharge Medication Sig Dispensed Refills Start Date End Date BISMUTH SUBSALICYLATE ORAL Take by mouth as 0 11/200804/01/2019 needed. documented as of this encounter Progress Notes Cathy Mccoy M.D. - 06/26/2012 8:51 AM CDT CN DATE: 06/26/2012 CHIEF COMPLAINT/REASON FOR VISIT This is a 67-year-old male with diabetes here for a check. He also has pain in his left wrist. HISTORY OF PRESENT ILLNESS His sugars have been up and down. Usually if he takes it fasting it is pretty good. If he eats ice cream and then takes it then it goes up pretty good. On the left wrist pain 2 to 3 weeks ago he started having pain. He was using a carpal tunnel splint and it seemed to improve but he was breaking up branches yesterday and now he is having the pain again. PAST MEDICAL/SURGICAL HISTORY PAST MEDICAL: 1. Acute myocardial infarction with arterial stent. 2. Cardiac arrest. 3. Diabetes. 4. Gout. 5. Hypertension. 6. Hyperlipidemia. 7. Skin cancer. 8. Colonoscopy 2007. 9. Excision of calcaneal spur 2006. SOCIAL HISTORY Nonsmoker. Drinks coffee 1 to 2 cups per day. FAMILY HISTORY Family history of diabetes, cataracts, cancer, renal stone, glaucoma, coronary artery disease, sleepapnea. CURRENT MEDICATIONS 1. Albuterol CFC free p.r.n. 2. Allopurinol 100 mg two times per day. 3. EpiPen p.r.n. 4. Fluticasone nasal spray 2 puffs daily. 5. Gemfibrozil 600 mg two times per day. 6. Humalog 75/25 eighty-three units b.i.d. 7. Ibuprofen p.r.n. 8. Lidex 0.05% topical solution. He uses this around the time that he gets his haircut. It seems to keep his rash down. 9. Lisinopril 5 mg daily. 10. Metformin 1000 mg b.i.d. 11. Metoprolol 25 mg one-half tablet twice a day. 12. Nitroglycerin p.r.n., he has not used for a long time. 13. Pepto-Bismol p.r.n. 14. Viagra 50 mg prior to sex. ALLERGIES 1. PENICILLIN. 2. LIPITOR. 3. BEE STINGS. 4. CLINDAMYCIN. 5. ADHESIVE BANDAGE. 6. ASPIRIN. SYSTEMS REVIEW ENT: He has some dryness in his ears. CHEST: No shortness of breath or cough. CARDIOVASCULAR: No chest pain or palpitations. GASTROINTESTINAL: He gets diarrhea bout every 2 weeks. He takes Pepto Bismol and that resolves it soI told him to take chronic fiber either Metamucil on in his diet. GENITOURINARY: No dysuria, hematuria or nocturia. MUSCULOSKELETAL: Left wrist is his only complaint. ENDOCRINE: No increased thirst, urination, heat or cold intolerance. PSYCH: No depression or anxiety. SKIN: As mentioned he uses the Lidex on his hair. He is also using it on his chin. NEUROLOGIC: No numbness or tingling. GENERAL: No fevers, night sweats, weight loss, weight gain. VITAL SIGNS Blood pressure 116/78. Pulse 56. Respirations 16. Temperature 36.1. Weight 118.1 kg. Height 194 cm. PHYSICAL EXAMINATION CHEST: Clear to auscultation bilaterally. CARDIOVASCULAR: Regula r rate and rhythm. No murmur. EXTREMITIES: Feet have good sensation. Pulses are normal. Left wrist has tenderness in a point area on the dorsal side distal to the radial stylus. It became worse if you pulled on the hand or if he ismaking a fist and you push on the second finger MCP. IMPRESSION/REPORT/PLAN 1. Diabetes. 2. Left wrist pain. We are going to get an x-ray of his left wrist. Check a hemoglobin A1c, creatinine, microalbumin forhis diabetes. We will contact him with labs. We refilled his Metformin and gemfibrozil. He should return in 6 months or as needed. ADMINISTRATIVE BILLING Total time spent 18 minutes with 10 minutes in counseling and coordination of care. SILVIANO:chong Doc#: [id number] cc: Electronically Signed By: CATHY MCCOY MD On: 07/02/2012 12:20 PM Source: [facility] ISJDICTAPHONESYS Document Id: [id number] documented in this encounter Miscellaneous Notes Miscellaneous - Cathy Mccoy M.D. - 06/26/2012 9:23 AM CDT Ambulatory Patient Summary [place] - [address] [address] Visit Information Name: [facility] Current Date: 06/26/2012 09:23:55 Physicians Attending Provider: CATHY MCCOY MD Primary Care Provider: CATHY MCCOY MD Your Medications Here is a list of your medications. It is important to take your medications as directed. Use a pillbox or chart to help remind you to take your medications. Please let your doctor or nurse know if you have problems taking your medications. Medication/Strength Dose Route Frequency Indications/Special Instructions/Comments gemfibrozil (gemfibrozil 600 mg oral tablet) 600 mg Oral two times a day metformin (metformin 1000 mg oral tablet) 1,000 mg Oral two times a day with meals epinephrine (EpiPen 2-Yves 0.3 mg injectable kit) 0.3 mg Intramuscular once insulin lispro protamine-insulin lispro (Humalog Mix 75/25 subcutaneous suspension) See [id number] units bid albuterol (albuterol CFC free 90 mcg/inh inhalation aerosol) 2 puff(s) Inhalation every 4 hours as needed for Shortness of Breath allergic triggered asthma metoprolol (metoprolol 25 mg oral tablet) 12.5 mg Oral two times a day lisinopril (lisinopril 5 mg oral tablet) 5 mg Oral once a day allopurinol (allopurinol 100 mg oral [...] No Appointments found Your Goals/Additional instructions: Source: [facility] POWERCHART Document Id: [id number] Miscellaneous - Cathy Mccoy M.D. - 06/26/2012 9:23 AM CDT Ambulatory Depart Summary [address] [id number] Visit Information Name: [facility] Visit Date: 06/26/2012 09:23:54 Attending Provider: CATHY MCCOY MD Primary Care [...] medications. Medication/Strength Dose Route Frequency Indications/Special Instructions/Comments gemfibrozil (gemfibrozil 600 mg oral tablet) 600 mg Oral two times a day metformin (metformin 1000 mg oral tablet) 1,000 mg Oral two times a day with meals epinephrine (EpiPen 2-Yves 0.3 mg injectable kit) 0.3 mg Intramuscular once insulin lispro protamine-insulin lispro (Humalog Mix 75/25 subcutaneous suspension) See [id number] units bid albuterol (albuterol CFC free 90 mcg/inh inhalation aerosol) 2 puff(s) Inhalation every 4 hours as needed for Shortness of Breath allergic triggered asthma metoprolol (metoprolol 25 mg oral tablet) 12.5 mg Oral two times a day lisinopril (lisinopril 5 mg oral tablet) 5 mg Oral once a day allopurinol (allopurinol 100 mg oral [...] clarification. Additional Information: Yes - . Source: [facility] POWERCHART Document Id: [id number] Miscellaneous - Cathy Mccoy M.D. - 06/26/2012 9:22 AM CDT Quality Measures Quality Measures Entered On: 06/26/2012 9:23 CDT Performed On: 06/26/2012 9:22 CDT by CATHY MCCOY MD Diabetes Date of Last Foot Exam : 06/26/2012 CDT CATHY MCCOY MD - 06/26/2012 9:22 CDT Foot Exam Grid Left foot exam Right foot exam Dorsalis Pedis Pulse : Normal Normal Post Tibial Pulse : Normal Normal Capillary Refill : Less than 3 seconds Less than 3 seconds 10 gm Monofilament Sensation Check : Intact Intact CATHY MCCOY MD - 06/26/2012 9:22 CDT CATHY MCCOY MD - 06/26/2012 9:22 CDT [facility] Document Id: [id number] Miscellaneous - Shirin Keen L.P.N. - 06/26/2012 8:55 AM CDT Adult Sub Arc Operator Intake/History Adult Sub Arc Operator Intake/History Entered On: 06/26/2012 8:58 CDT Performed On: 06/26/2012 8:55 CDT by SHIRIN KEEN LPN Intake Chief Complaint : diabetic check, and check left wrist, having pain for the past couple of weeks. Temperature Core : 36.1C(Converted to: 97.0DegF) (LOW) Peripheral Pulse Rate : 56/min (LOW) Respiratory Rate : 16/min Heart Rhythm : Regular Systolic Blood Pressure : 116mmHg Diastolic Blood Pressure : 78mmHg NIBP Mean : 91mmHg BP Location : Left upper extremity Blood Pressure Cuff Size : Large Height : 194cm(Converted to: 6ft 4inch(es), 76.38inch(es)) Actual Weight : 118.1kg(Converted to: 260lb 6oz) Dosing Weight Clinic : 118.10kg Clinic BSA : 2.52 Body Mass Index : 31.38kg/m2 SHIRIN KEEN LPN - 06/26/2012 8:55 CDT General Info Information Given By : Patient Preferred Communication Mode : Verbal Languages : Greenlandic [employer]IRIN KEEN [employer] SUPERVISOR - 06/26/2012 8:55 CDT Subjective Pain Symptoms : Yes SHIRIN KE[employer] SUPERVISOR - 06/26/2012 8:55 CDT Pain Pain Assessment Grid Pain 1 Location : Wrist Laterality : Left Intensity : 4 SHIRIN KEEN [employer]FF[employer] SUPERVISOR - 06/26/2012 8:55 CDT Dependent Habits Tobacco Use/Currently Using : No Exposure to Tobacco Smoke : Other: non smoker Smoking Status : Never smoker [employer]IRIN KE[employer] SUPERVISOR - 06/26/2012 8:55 CDT Caffeine Use Grid Caffeine Use : Current Type : Coffee Frequency : Daily Amount : 1-2 SHIRIN KEEN [employer]FF[employer] SUPERVISOR - 06/26/2012 8:55 CDT Allergy Allergies (Active) Adhesive Bandage Estimated [...] Updated By: CATHY MCCOY MD; Reviewed Date: 04/25/2012 9:30 CDT [...] LPN; Reviewed Date: 04/25/2012 9:30 CDT Source: [facility] POWERCHART Document Id: [id number] documented in this encounter Plan of Treatment Not on filedocumented as of this encounter Procedures Procedure Name Priority Date/Time Associated Comments Diagnosis ALBUMIN, RANDOM, U Routine 06/26/2012 9:40 AM Res ults for this CDT procedure are i n the results section. HEMOGLOBIN A1C, B Routine 06/26/2012 9:35 AM Resu lts for this CDT procedure are i n the results section. CREATININE WITH Routine 06/26/2012 9:35 AM Result s for this EGFR, S/P CDT procedure are i n the results section. documented in this encounter Results (ABNORMAL) Microalbumin, Random, Urine (06/26/2012 9:40 AM CDT) athologist Signature Microalbumin-Ra 50 (A) Negative POWERCHART ndom, U Specimen (Source) Anatomical Collection Method Collection Time Re ceived Time Location / / Volume Laterality Urine 06/26/2012 9:40 AM CDT Cathy Mccoy M.D. LAB URINE ORDERABLES Performing Organization Address City/State/ZIP Code Phon e Number POWERCHART Creatinine with eGFR (06/26/2012 9:35 AM CDT) athologist Signature Creatinine 0.9 0.4 - 1.5 POWERCHART MGDL HXeGFR (MDRD) >60.0 POWERCHART Comment: Results are in mL/min/1.73m squared CKD Stage I: GFR > 90 CKD Stage II: GFR 60 to 89 CKD Stage III: GFR 30 to 59 CKD Stage IV: GFR 15 to 29 CKD Stage V: GFR < 15 or Dialysis eGFR Black/ >60 MLMIN PO WERCHART Specimen (Source) Anatomical Collection Method Collection Time Re ceived Time Location / / Volume Laterality Blood 06/26/2012 9:35 AM CDT Cathy Mccoy M.D. LAB BLOOD ADD-ON Performing Organization Address City/State/ZIP Code Phon e Number POWERCHART (ABNORMAL) Hemoglobin A1c (06/26/2012 9:35 AM CDT) P athologist Signature Hemoglobin A1c, 7.6 (H) 4.8 - 5.9 POWERCHART B Specimen (Source) Anatomical Collection Method Collection Time Re ceived Time Location / / Volume Laterality Blood 06/26/2012 9:35 AM CDT Cathy Mccoy M.D. LAB BLOOD ADD-ON Performing Organization Address City/State/ZIP Code Phon e Number POWERCHART documented in this encounter Visit Diagnoses Not on filedocumented in this encounter
--- OUTSIDE RECORDS SUMMARY | 2022-05-24 18:29 | XMS_ITS | Encounter Summary ---
:1945 Author Organization [facility] Address [address] [place] [address] Care Team Providers Name Role Phone Unavailable Primary Care Provider Unavailable Encounter Details Date Type Department Care Team Description 10/04/2012 Hospital Encounter [facility] [facility] Tammy Mccoy M.D. Social History Tobacco [...] or relatives? How often do you attend jewish or More than 4 times per year 06/14/2019 hoahaoism services? Do you belong to any clubs or Yes 06/14/2019 organizations such as jewish groups, unions, fraternal or athletic groups, or [...] 11/200804/01/2019 needed. documented as of this encounter Miscellaneous Notes Miscellaneous - Nikia Mccoy M.D. - 10/04/2012 5:24 PM CST General Message From: NIKIA MCCOY MD Sent: 10/04/2012 17:24:56 ENERGY EFFICIENT SITE MANAGER Subject: General Message letter with results. no change in plan Source: [facility] Vidient Document Id: [id number] Electronically signed by Conversion, [facility] Director Metabolism [id number] at 02/08/2017 7:10 PM CDT Miscellaneous - Nikia Mccoy M.D. - 10/04/2012 5:24 PM CST Normal Results Letter [address] [address] [place], [place] [id number] Dear AVE [facility], I am pleased to report that your results from the following diagnostic test(s) are normal. Please follow up with us as we discussed during your visit or sooner if you have any concerns. If you have questions or concerns, please do not hesitate to call our office. Excellant. HDL is low but everything else is too. Result Name Current Result Previous Result Normal Range AST (U/L) 18 10/04/2012 3 - 35 Cholesterol (mg/dL) 130.0 10/04/2012 160.0 09/28/2011 120.0 - 200.0 Trig (mg/dL) 165 10/04/2012 (H) 248 09/28/2011 35 - 185 HDL (mg/dL) (L) 24.0 10/04/2012 (L) 23.0 09/28/2011 40.0 - 85.0 LDL Calculated (mg/dL) 73 10/04/2012 87 09/28/2011 60 - 130 Chol/HDL Ratio 5.4 10/04/2012 7.0 09/28/2011 LDL/HDL 3 10/04/2012 4 09/28/2011 Sincerely, NIKIA MCCOY [address] [place], [place] [phone] Electronic Signature Electronically Signed By: NIKIA MCCOY MD On: 04 October 2012 This document has images extracted. Source: [facility] POWERCHART Document Id: [id number] Electronically signed by Gricelda, [facility] Director Metabolism [id number] at 02/08/2017 7:10 PM CDT documented in this encounter Plan of Treatment Not on filedocumented as of this encounter Procedures Procedure Name Priority Date/Time Associated Comments Diagnosis LIPID PANEL, S Routine 10/04/2012 11:10 Results f or this AM ENERGY EFFICIENT SITE MANAGER procedure are i n the results section. ASPARTATE Routine 10/04/2012 11:10 Results for this AMINOTRANSFERASE (AST), AM ENERGY EFFICIENT SITE MANAGER proc edure are in S/P the results section. documented in this encounter Results AST (Aspartate Aminotransferase) (10/04/2012 11:10 AM ENERGY EFFICIENT SITE MANAGER) [facility] Signature Aspartate 18 3 - 35 UL POWERCHART Aminotransferase (AST), S Specimen (Source) Anatomical Collection Method Collection Time Re ceived Time Location / / Volume Laterality Blood 10/04/2012 11:10 AM ENERGY EFFICIENT SITE MANAGER Nikia Mccoy M.D. LAB BLOOD ADD-ON Performing Organization Address City/State/ZIP Code Phon e Number POWERCHART (ABNORMAL) Lipid Panel (10/04/2012 11:10 AM ENERGY EFFICIENT SITE MANAGER) [facility] Signature Cholesterol, 130.0 120.0 - POWERCHART Total 200.0 MGDL HX HDL 24.0 (L) 40.0 - POWERCHART 85.0 MGDL Triglycerides 165 35 - 185 POWERCHART MGDL Calculated LDL 73 60 - 130 POWERCHART MGDL Total 5.4 POWERCHART Cholesterol/HDL Ratio HXLDL/HDL 3 POWERCHART Specimen (Source) Anatomical Collection Method Collection Time Re ceived Time Location / / Volume Laterality Blood 10/04/2012 11:10 AM ENERGY EFFICIENT SITE MANAGER Nikia Mccoy M.D. LAB BLOOD ADD-ON Performing Organization Address City/State/ZIP Code Phon e Number POWERCHART documented in this encounter Visit Diagnoses Not on filedocumented in this encounter
--- OUTSIDE RECORDS SUMMARY | 2022-05-24 18:29 | XMS_ITS | Encounter Summary ---
:1945 Author Organization [facility] Address [address] [place] [address] Care Team Providers Name Role Phone Unavailable Primary Care Provider Unavailable Encounter Details Date Type Department Care Team Description 01/18/[address] [facility] Cathy Rosenthal M.D. Social History [...] Sign Reading Time Taken Comments Blood Pressure 126/88 01/18/2013 9:38 AM CDT Pulse 78 01/18/2013 9:38 AM CDT Temperature - - Respiratory Rate 18 01/18/2013 9:38 AM CDT Oxygen Saturation - - Inhaled Oxygen Concentration - - Weight 122 kg (268 lb 8.3 oz) 01/18/2013 9:38 AM CDT Height 194 cm (6' 4.38) 01/18/2013 9:38 AM CDT Body Mass Index 32.36 01/18/2013 9:38 AM CDT documented in this encounter Medications at Time of Discharge Medication Sig Dispensed Refills Start Date End Date BISMUTH SUBSALICYLATE ORAL Take by mouth as 0 11/200804/01/2019 needed. documented as of this encounter Progress Notes Cathy Mccoy M.D. - 01/18/2013 9:30 AM CDT [id number] LOCATION: [facility] CHIEF COMPLAINT/REASON FOR VISIT A 67-year-old male, has a lesion on his arm that he thinks should be biopsied. He also needs a refill on his lisinopril and Viagra. He had a rash and that has cleared up some, but now he notices a pinkarea on his left arm that is thick and scaly and he picked off the top of it and he wants a biopsy. He says his glasses are too tight, but I told him to visit Ophthalmology for that. We refilled his lisinopril and Viagra. PAST MEDICAL/SURGICAL HISTORY Myocardial infarction, arterial stent, cardiac arrest, diabetes, gout, hypertension, hyperlipidemia,skin cancer. SOCIAL HISTORY He is a nonsmoker, but his has smoked in the past. Coffee, 1-2 two cups a day. FAMILY HISTORY Diabetes, cataract, cancer, renal stones, glaucoma, coronary artery disease, sleep apnea. CURRENT MEDICATIONS Reviewed and reconciled on EMR. ALLERGIES ADHESIVE BANDAGES. ASPIRIN. BEE STINGS. CLINDAMYCIN. LIPITOR. PENICILLIN. SYSTEMS REVIEW See HPI. Remainder negative. VITAL SIGNS Blood pressure 126/88, pulse 78, respirations 18, temp 36.2, weight 121.8 kg. PHYSICAL EXAMINATION Left arm as described above. The lesion is thick and scaly. He said he picked off the top of it and it looks fairly large and scaling. PROCEDURE NOTE: After momentary silence, we cleansed the area of the lesion. With a razor under sterile conditions we did a biopsy with lidocaine with epinephrine. There was no complication. We hyfrecated to establish hemostasis. IMPRESSION/REPORT/PLAN Skin lesion. PLAN: We will refill his lisinopril and Viagra. If this area biopsied shows any signs of infection he should return. ADMINISTRATIVE BILLING Total time spent was 24 minutes, with 20 minutes in counseling and coordination of care. Cathy Mccoy M.D./kevin Electronically Signed By: CATHY MCCOY MD On: 04/20/2013 09:40 PM Source: [facility] MHSDOLBEYNONRADSYS Document Id: [id number] documented in this encounter Nursing Notes Samira Lu - 04/02/2013 10:38 AM CDT DSME/CDE blood sugar follow up 16 He confirms that he is using a reduced amount of insulin now that he has lost 25 lbs and he is moreactive outdoors. Blood sugars fasting 89-191 Before evening meal 149-278. He states that 60% of the time he has a late day snack and then checks his blood sugar an hour or so later. He complains of frequent loose stools and believes that this is the reason behind the weight loss. CDE urged him to discuss his weight loss with Dr. Mccoy and to also discuss the use of the XR metformin. He is resistant to the idea of stopping the metformin, he understands that he would required a higher dose of insulin and he finds it hard to pay for the current dose. Response/Plan; He has ageed to make an appt with Dr. Ruano to discuss his recent weight loss and to discuss the use of metformin XR. Electronically Signed By: SAMIRA LU On: 04/02/2013 10:45 AM Source: [facility] POWERCHART Document Id: [id number] documented in this encounter Miscellaneous Notes Miscellaneous - Cathy Mccoy M.D. - 01/30/2013 8:42 PM CDT Normal Results Letter [address] [address] [facility] [id number] Dear AVE CHANCE, I am pleased to report that your results from the following diagnostic test(s) are normal. Please follow up with us as we discussed during your visit or sooner if you have any concerns. If you have questions or concerns, please do not hesitate to call our office. [facility] in [address] [place] [address] Patient Name: AVE CHANCE Collected: 01/18/2013 Address: City/State/Zip: [address] [place], [place] [id number] Received: Reported: 01/18/2013 01/21/2013 Soc. Sec. 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 --- MODERATE TO MARKED ACTINIC CHANGE TO THE HIGH DERMAL COLLAGEN. [facility]igned [facility]21[facility]2013 TONY BARRIOS M.D. SPECIMEN(S) RECEIVED: LEFT FOREARM BIOPSY GROSS DESCRIPTION: Submitted as left forearm is a thin 0.5 cm irregular shave biopsy white skin. Inked. Bisected. ESB, one cassette. ([id number]) EAE/LEDA/01/18/2013 MICROSCOPIC DESCRIPTION: Sections of skin from the left forearm reveals an epidermis with slight hyperkeratosis. There is mild atypia of the basilar portion and actinic change to the high dermal collagen. There is focal dense lichenoid infiltrate in the high dermis with accompanying subepidermal blister. This may represent a bullous change to a lichen planus or lichen planus-like keratosis. LEDA/01/21/2013 Result Name Current Result Pathology-Surg Path 01/18/2013 Sincerely, CATHY MCCOY [address] [place] [id number] Electronic Signature Electronically Signed By: CATHY MCCOY MD On: 30 Jan 2013 This document has images extracted. Source: [facility] POWERCHART Document Id: [id number] Miscellaneous - Cathy Mccoy M.D. - 01/18/2013 10:14 AM CDT Ambulatory Patient Summary [place] [address] Visit Information Name: AVE [address] Number: [id number] Current Date: 01/18/2013 10:14:21 Physicians Attending Provider: CATHY MCCOY MD Primary Care Provider: CATHY MCCOY MD Your Medications Here is a list of your medications. It is important to take your medications as directed. Use a pillbox or chart to help remind you to take your medications. Please let your doctor or nurse know if you have problems taking your medications. Medication/Strength Dose Route Frequency Indications/Special Instructions/Comments sildenafil (Viagra 50 mg oral tablet) 1 tablet one hour prior to sexual activity Oral once a day as needed for erectile dysfunction lisinopril (lisinopril 5 mg oral tablet) 5 mg Oral once a day metformin (metformin 1000 mg oral [...] 12.5 mg Oral two times a day insulin lispro protamine-insulin lispro (Humalog Mix 75/25 subcutaneous suspension) See [id number] units bid gemfibrozil (gemfibrozil 600 mg oral [...] Upcoming Appointments Date Time Location Reason Provider 01/25/2013 08:45 [facility] diabetic ed/ref:rodriguez Lu RN, Samira Chambers Your Goals/Additional instructions: Source: [facility] POWERCHART Document Id: [id number] Miscellaneous - Cathy Mccoy M.D. - 01/18/2013 10:14 AM CDT Ambulatory Depart Summary [address] [address] Visit Information Name: AVE [address] Number: [id number] Visit Date: 01/18/2013 10:14:19 Attending Provider: CATHY MCCOY MD Primary Care [...] medications. Medication/Strength Dose Route Frequency Indications/Special Instructions/Comments sildenafil (Viagra 50 mg oral tablet) 1 tablet one hour prior to sexual activity Oral once a day as needed for erectile dysfunction lisinopril (lisinopril 5 mg oral tablet) 5 mg Oral once a day metformin (metformin 1000 mg oral [...] 12.5 mg Oral two times a day insulin lispro protamine-insulin lispro (Humalog Mix 75/25 subcutaneous suspension) See [id number] units bid gemfibrozil (gemfibrozil 600 mg oral [...] clarification. Additional Information: Yes - . [facility] Document Id: [id number] Miscellaneous - Mckenna Kelly L.P.N. - 01/18/2013 9:38 AM CDT Adult Telephone Lineman Intake/History Adult Telephone Lineman Intake/History Entered On: 01/18/2013 9:42 CDT Performed On: 01/18/2013 9:38 CDT by MCKENNA KELLY LPN Intake Chief Complaint : Check lesions on arms. Possible biopsy. Needs refill on Lisinpril and Viagra. Temperature Core : 36.2 DegC(Converted to: 97.2 DegF) (LOW) Peripheral Pulse Rate : 78 /min Respiratory Rate : 18 /min Heart Rhythm : Regular Systolic Blood Pressure : 126 mmHg Diastolic Blood Pressure : 88 mmHg NIBP Mean : 101 mmHg BP Location : Left upper extremity Blood Pressure Cuff Size : Large Height : 194 cm(Converted to: 6 ft 4 inch(es), 76.38 inch(es)) Actual Weight : 121.8 kg(Converted to: 268 lb 8 oz) Weight Source : Standing scale Dosing Weight Clinic : 121.8 kg Clinic BSA : 2.56 Body Mass Index : 32.36 kg/m2 MCKENNA KELLY MUNICIPAL BOND TRADER - 01/18/2013 9:38 CDT General Info Information Given By : Patient Preferred Communication Mode : Verbal Languages : Urdu MCKENNA KELLY LPN - 01/18/2013 9:38 CDT Subjective Pain Symptoms : No MCKENNA KELLY LPN - 01/18/2013 9:38 CDT Dependent Habits Tobacco Use/Currently Using : No Exposure to Tobacco Smoke : Other: non smoker Smoking Status : Never smoker MCKENNA KELLY LPN - 01/18/2013 9:38 CDT Caffeine Use Grid Caffeine Use : Current Type : Coffee Frequency : Daily Amount : 1-2 MCKENNA KELLY LPN - 01/18/2013 9:38 CDT [facility] Document Id: [id number] CDT!34 documented in this encounter Plan of Treatment Not on filedocumented as of this encounter Procedures Procedure Name Priority Date/Time Associated Diagnosis Comme nts SURGICAL PATHOLOGY Routine 01/18/2013 2:50 PM Res ults for this CDT procedure are i n the results section. documented in this encounter Results Pathology Surgical Pathology (01/18/2013 2:50 PM CDT) Specimen (Source) Anatomical Collection Method Collection Time Re ceived Time Location / / Volume Laterality 01/18/2013 2:50 PM CDT Narrative [facility] - 01/21/2013 9:31 AM CDT [facility] in [address] [place] [id number] Patient Name: AVE CHANCE Patient ID #: [id number] Collected: 01/18/2013 Address: City/State/Zip: [address] [place] [address] ??[id number] Received: Reported: 01/18/2013 01/21/2013 Soc. Sec. #: [id number] ?? DO B/Age/Sex 1945 (Age: 67) ??M Physician(s): HORTENCIA MCCOY MD Copy To: ? 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 --- MODERATE TO MARKED ACTINIC CHANGE TO THE HIGH DERMAL COLLAGEN. Signed [facility]/01/21/2013 TONY BARRIOS M.D. SPECIMEN(S) RECEIVED: LEFT FOREARM BIOPSY GROSS DESCRIPTION: Submitted as left forearm is a thin 0.5 cm irregular shave biopsy white skin. Inked. Bisected. ESB, one cassette. ([id number]) EAE/LEDA/01/18/2013 MICROSCOPIC DESCRIPTION: Sections of skin from the left forearm r eveals an epidermis with slight hyperkeratosis. ??There is mild atypia of the basilar portion and actinic change to the high dermal collagen. ??There is focal dense lichenoid infiltrate in the high dermis with accompanying subepidermal blister. ??Thi s may represent a bullous change to a lichen planus or lichen planus-like keratosis. LEDA/01/21/2013 Cathy Mccoy M.D. LAB SURG PATH ORDERABLES Performing Organization Address City/State/ZIP Code Phon e Number [facility] documented in this encounter Visit Diagnoses Not on filedocumented in this encounter
--- OUTSIDE RECORDS SUMMARY | 2022-05-24 18:29 | XMS_ITS | Encounter Summary ---
:1945 Author Organization [facility] Address [address] [place] [address] Care Team Providers Name Role Phone Unavailable Primary Care Provider Unavailable Encounter Details Date Type Department Care Team Description 12/30/2011 Hospital Encounter HX [facility] Tammy Mccoy M.D. Social History Tobacco [...] or relatives? How often do you attend episcopalian or More than 4 times per year 06/14/2019 christian services? Do you belong to any clubs or Yes 06/14/2019 organizations such as episcopalian groups, unions, fraternal or athletic groups, or [...] of this encounter Miscellaneous Notes Miscellaneous - Samira Lu - 02/01/2012 3:36 PM CDT Quality Measures Quality Measures Entered On: 02/01/2012 15:36 CDT Performed On: 02/01/2012 15:36 CDT by SAMIRA LU Diabetes Date of Last Eye Exam : 02/01/2012 CDT SAMIRA LU - 02/01/2012 15:36 CDT Source: [facility] POWERCHART Document Id: [id number] CDT!3 documented in this encounter Plan of Treatment Not on filedocumented as of this encounter Procedures Procedure Name Priority Date/Time Associated Diagnosis Comme nts HEMOGLOBIN A1C, B Routine 12/30/2011 10:25 AM Res ults for this CDT procedure are i n the results section. documented in this encounter Results (ABNORMAL) Hemoglobin A1c (12/30/2011 10:25 AM CDT) P athologist Signature Hemoglobin A1c, 6.8 (H) 4.8 - 5.9 POWERCHART B Specimen (Source) Anatomical Collection Method Collection Time Re ceived Time Location / / Volume Laterality Blood 12/30/2011 10:25 AM CDT Cathy Mccoy M.D. LAB BLOOD ADD-ON Performing Organization Address City/State/ZIP Code Phon e Number POWERCHART documented in this encounter Visit Diagnoses Not on filedocumented in this encounter
--- OUTSIDE RECORDS SUMMARY | 2022-05-24 18:29 | XMS_ITS | Encounter Summary ---
:1945 Author Organization [facility] Address [address] [place] [address] Care Team Providers Name Role Phone Unavailable Primary Care Provider Unavailable Encounter Details Date Type Department Care Team Description 08/01/2013 [facility] K[facility] Molina M.[facility]. Social History Tobacco Use Types Packs/Day [...] Miscellaneous - Conversion, Historical Provider Ser - 11/05/2014 8:53 AM SHELTER SUPERVISOR Urgent Care-skin tag Document Contains Addenda Addendum by TERRA VYAS RN on 05 November 2014 13:56:57 SHELTER SUPERVISOR From: TERRA VYAS RN (SAGE Wise Nurse) To: ANNABEL BURGESS; Sent: 11/05/2014 13:56:57 SHELTER SUPERVISOR Subject: RE: Urgent Care-skin tag can you get him in? Addendum by ANNABEL BURGESS on 05 November 2014 13:26:00 SHELTER SUPERVISOR From: ANNABEL BURGESS To: SAGE Wise Nurse; Sent: 11/05/2014 13:26:00 SHELTER SUPERVISOR Subject: RE: Urgent Care-skin tag yes she does Addendum by TERRA VYAS RN on 05 November 2014 08:58:05 SHELTER SUPERVISOR From: TERRA VYAS RN (SAGE Wise Nurse) To: ANNABEL BURGESS; Sent: 11/05/2014 08:58:05 SHELTER SUPERVISOR Subject: FW: Urgent Care-skin tag rodriguez has an opening this afternoon doesn't she?? From: JASMINE BARGER To: SAGE Wise Nurse; Sent: 11/05/2014 08:53:17 SHELTER SUPERVISOR Subject: Urgent Care-skin tag If you need a prescription refill please call your pharmacy. Please allow 3 business days for processing. Call Center Template: ?? May we leave a message for you on this phone? ?? What can I help you with today?he has a skin tag along his waistline that is irritating, and is wondering if urgent care could take care of that as there are no openings today in [place] or [place] ?? If Medication Refill: o What is the medication? o What pharmacy do you use? o Have you contacted your pharmacy regarding this request? I will send this information to the appropriate staff member who will look into your concern. Someone will call you back within 4 business hours.. Thank you for calling [facility]. Source: [facility] POWERCHART Document Id: [id number] Miscellaneous - Eula Radford, Pharm.D., R.Ph. - 08/01/2013 1:56 PM SHELTER SUPERVISOR Medication Therapy Management Medication Therapy Management Entered On: 08/01/2013 14:21 SHELTER SUPERVISOR Performed On: 08/01/2013 13:56 SHELTER SUPERVISOR by EULA RADFORD PharmD Recommendations General Information - MTM : 68 yoM referred to MTM due to high cost of medications. Patient has changed coverage for next year and expects his drug costs to be significantly less, but did request to get his Creon in 3 month supplies rather than 1 month to save money. Prior to starting the Creon patient had a 50 pound weight loss and significant diarrhea, cramping, gas and bloating. This has been almost completely resolved since starting Creon, with the exception ofsome GI upset while treating an H.pylori infection. Patient checks his BG 2-3 times per day and it has been running in the 200s, but he also has been experiencing lows at times. Patient is able to recognize when he is low. He is currently adjusting his Novolog Mix 75/25 to try to compensate for the fluctuating BG levels. We spoke about the changes likely being from the addition of the Creon and how his body is processing food differently. We talked about other insulin options and I recommended follow up with a certified adaptive physical educator/Dr. Mccoy. Patient given updated medication list and plan. EULA RADFORD PharmD - 08/01/2013 13:56 SHELTER SUPERVISOR Drug Therapy Problems - Grid Drug Therapy Problem Identified : Nonadherence Need for additional medication Drug Therapy Recommendation : Patient education Change medication dose, Change dosage form Details : omega-3 fatty acid: order is for 1 TID, but patient has only been taking 1 daily. Recommended taking this TID to aid in cholesterol control insulin: patiet may benefit from switching insulin therapy to prevent the highs and lows he has been having. Recommend following up with Dr. Weaver/or diabetes education Action : Recommendation given to patient Recommendation/Proposal forwarded to provider for approval,Recommendation given to patient EULA RADFORDD - 08/01/2013 13:56 SHELTER SUPERVISOR EULA RADFORDD - 08/01/2013 13:56 SHELTER SUPERVISOR Monitor Drug Therapy - Lab Monitoring : HbA1c Consult to Other Services : Diabetic education Follow Up With Provider : As scheduled Time Spent With Patient MTM : 60 Minutes Time Spent in Chart Review/Preparation : 30 minutes or less Method of communication to provider : Message Center EULA RADFORDD - 08/01/2013 13:56 SHELTER SUPERVISOR Asthma Current Asthma Medications : Short-acting beta agonist COPD/Asthma Comments : primary use of inhaler in spring/fall months COPD/Asthma Method of Administration : MDI EULA RADFORDD - 08/01/2013 13:56 SHELTER SUPERVISOR Diabetes Current Diabetes Medications : FLORA inhibitor/ARB - see hypertension in diabetes algorithm, Correction Insulin, Metformin Date HbA1c : 01/10/2013 CDT HbA1C : 7.9% Blood Glucose Monitored At Home : Other: 2-3 times daily Hypoglycemia Symptoms : Weakness Diabetes Comments : Patient stopped taking daily aspirin due to chronic nose bleeds which have sinceimproved. EULA RADFORD PharmD - 08/01/2013 13:56 SHELTER SUPERVISOR Hyperlipidemia Last Lipid Panel Date : 10/04/2012 SHELTER SUPERVISOR Total Cholesterol : 130 Triglycerides : 165 HDL : 24 LDL (Goal Less Than 100) : 73 CAD Risk Equivalent : Diabetes Mellitus, Carotid Artery Disease CHD risk factors : HTN (BP >= 140/90 mmHg or on antihypertensive medication), Low HDL cholesterol(<40 mg/dL), Age (men >= 45 years, women >= 55 years), Diabetes Current Hyperlipidemia Medications : Fibrate, Fish oil EULA RADFORD PharmD - 08/01/2013 13:56 SHELTER SUPERVISOR Hypertension Hypertension Disease State : Hypertension with co-morbid conditions Current Antihypertensive Medications : FLORA inhibitor, Beta Yumiko EULA RADFORD PharmD - 08/01/2013 13:56 SHELTER SUPERVISOR Post OR/CAD Current Post OR/CAD Medications : Beta Yumiko, FLORA inhibitor/ARB, Risk factor management (Lipids, Blood pressure, Diabetes), Nitroglycerin Nitroglycerin Verification : Yes EULA RADFORDD - 08/01/2013 13:56 SHELTER SUPERVISOR Medication Evaluation & SEAN Screening Patient review - MTM : Reviewed patient's laboratory results, health maintenance measures, conditionsummary, diagnoses & problems during chart review, Medication allergies reviewed with patient, All medications were reviewed with patient for indication, dosing instructions, safety and efficacy, and side effect profile, Medication list was reviewed for clinically significant drug interactions Medication History Methods : Medications reviewed from powerchart medication list, Non-prescription medications and dietary supplements reviewed and updated in historical medications, Compliance data updated in historical medications Medication Compliance Tools Used : Twice daily medication neighborhood planner (pill box), Family assistance Creatinine : 0.8 mg/dL Creatinine Date : 06/13/2013 CDT CrCl Calculation Method : Cockroft and Gault EULA RADFORD PharmD - 08/01/2013 13:56 SHELTER SUPERVISOR Patient Information & Health Screening Visit : Initial Primary Provider : NIKIA MCCOY MD Patient's Goals for Appointment : Cost reduction, Education EULA RADFORD PharmD - 08/01/2013 13:56 SHELTER SUPERVISOR Dependent Habits Tobacco Use/Currently Using : No Exposure to Tobacco Smoke : Other: non smoker Smoking Status : Unknown if ever smoke EULA RADFORD PharmD - 08/01/2013 13:56 SHELTER SUPERVISOR Home Environment Current Daily Living Assistance : None EULA RADFORD PharmD - 08/01/2013 13:56 SHELTER SUPERVISOR Source: [facility] [employer] Document Id: [id number] SHELTER SUPERVISOR![address] TER SUPERVISOR documented in this encounter Plan of Treatment Not on filedocumented as of this encounter Visit Diagnoses Not on filedocumented in this encounter
--- OUTSIDE RECORDS SUMMARY | 2022-05-24 18:29 | XMS_ITS | Encounter Summary ---
:1945 Author Organization [facility] Address [address] [place] [address] Care Team Providers Name Role Phone Unavailable Primary Care Provider Unavailable Encounter Details Date Type Department Care Team Description 06/13/[address] [facility] Jerica Freeman M. D. Social History [...] or relatives? How often do you attend baptist or More than 4 times per year 06/14/2019 islam services? Do you belong to any clubs or Yes 06/14/2019 organizations such as baptist groups, unions, fraternal or athletic groups, or [...] Sign Reading Time Taken Comments Blood Pressure 126/60 06/13/2013 11:12 AM CDT Pulse 60 06/13/2013 11:12 AM CDT Temperature - - Respiratory Rate 16 06/13/2013 11:12 AM CDT Oxygen Saturation - - Inhaled Oxygen Concentration - - Weight 106 kg (233 lb 4 oz) 06/13/2013 11:12 AM CDT Height 194 cm (6' 4.38) 06/13/2013 11:12 AM CDT Body Mass Index 28.11 06/13/2013 11:12 AM CDT documented in this encounter Medications [...] ORAL needed. documented as of this encounter Consult Notes Jerica Ellison M.D. - 06/13/2013 10:54 AM CDT [id number] REQUESTING PROVIDER PRIMARY PHYSICIAN: Cathy Mccoy M.D., [place]. CONSULTING SKamila Ellison M.D. CHIEF COMPLAINT/REASON FOR VISIT Abnormal weight loss, chronic diarrhea, fecal urgency and abdominal gas and bloating. HISTORY OF PRESENT ILLNESS A 68-year-old gentleman with history of type 2 diabetes for 20 years, gout, hypertension, hyperlipidemia and asthma. Presented to GI Clinic for evaluation of weight loss for the last 5 years. The patient claimed to have lost 40 to 50 pounds over the last 5 months. His appetite has been good. He has anywhere from 10-15 bowel movements a day, described as loose and watery. The patient frequently sees undigested vegetables, as well as a greasy discharge and oily discharge in the stool. The patient claimed to have nocturnal bowel movement approximately 2-3 times as well. He has intermittent abdominal cramps due to a bloating sensation. Because of this reason, the patient was sent to GI clinic for further evaluation. The patient tells me, his metformin medication was changed a few months ago. Prior tothat, he was taking a generic metformin for nearly 20 years. He denied having any melena or hematochezia. There is no nausea, vomiting, no postprandial abdominal pain. PAST MEDICAL/SURGICAL HISTORY Type 2 diabetes, gout, hypertension, hyperlipidemia, asthma, recent profound weight loss over the last 5 months with associated diarrhea and gas/bloating. MEDICATIONS EpiPen as needed. Nitroglycerin 0.4 mg as needed for chest pain. Lidex topical solution twice a day. Allopurinol 100 mg twice a day. Metoprolol 12.5 mg twice a day. Albuterol every 4 hours as needed for shortness of breath. Fluticasone nasal spray two sprays daily. Indomethacin 25 mg 3 times a day as needed for pain. Lisinopril 5 mg daily. Metformin 500 mg daily. Gemfibrozil 600 mg twice a day. Insulin lispro 83 units twice a day. Geneva-3 polyunsaturated fatty acid 1000 mg 3 times a day. Ibuprofen as needed for pain. Pepto-Bismol as needed for upset stomach. ALLERGIES ADHESIVE BANDAGE. ASPIRIN. CLINDAMYCIN. LIPITOR. PENICILLIN. SOCIAL HISTORY No smoking. Patient quit alcohol 20 years ago when he was diagnosed with diabetes. FAMILY HISTORY No gastrointestinal malignancies. SYSTEMS REVIEW Patient has no dysphagia, no odynophagia, intermittent abdominal cramps with gas, bloating and diarrhea going on for last 4 months, with associated 40-50 pound weight loss. The patient has good appetite. No dysphagia or odynophagia. No epigastric pain. No postprandial abdominal pain. No abnormal skin rash. VITAL SIGNS Temperature 36.2, pulse 60, respiratory 16, blood pressure 126/60, weight is 106 kg. Body mass index28.1. PHYSICAL EXAMINATION GENERAL: Alert and oriented x3 with no apparent distress. HEENT: Anicteric sclerae. Normal mucosa with mild cervical lymphadenopathy. LUNGS: Bilaterally clear to auscultation. HEART: Regular rate and rhythm. No audible murmur. ABDOMEN: Slightly protuberant, soft, nontender. No hepatosplenomegaly. No tenderness. No excessive tympany, very active bowel sounds. There is no rebound, no guarding. EXTREMITIES: Nontender, no pitting edema. MUSCULOSKELETAL: The patient does have proximal muscle wasting in the shoulder and buttock area. LABORATORY STUDIES: Over the past year were reviewed on [facility]. The patient had no evidence of anemia, but the MCV is elevated at 99. IMPRESSION Severe profound weight loss with diarrhea, rule out pancreatic insufficiency, pancreatic malignancy,intra-abdominal and intrathoracic malignancy, hyperthyroidism and a colorectal neoplasm. PLAN: Schedule upper endoscopy and colonoscopy to exclude digestive tract malignancies. Schedule CT scan of the thorax, abdomen and pelvis to exclude intrathoracic and intra-abdominal malignancy, such as pancreatic and kidney malignancies. Obtain a CBC, vitamin B12 level, comprehensive metabolic panel, and C-reactive protein. Return to clinic in 1 month for followup. Juliano Ellison M.D./pos cc: Cathy Mccoy M.D. [facility] [place] [address] Electronically Signed By: JERICA ELLISON MD On: 07/24/2013 11:39 AM Modified by and Electronically Signed by: JERICA ELLISON MD On: 07/24/2013 11:39 AM Source: [facility] [id number] Document Id: [id number] TRADER documented in this encounter Nursing Notes Polo Jean-Baptiste, L.P.N. - 06/13/2013 1:09 PM CDT Preprocedure Education Preprocedure Education Entered On: 06/13/2013 13:10 CDT Performed On: 06/13/2013 13:09 CDT by POLO JEAN-BAPTISTE LPN Education Preprocedure Education Grid Procedure Type : CT, combo w/ movi Education Topics : Anesthesia/Sedation, Family instructions, Infection Control Processes, Medicationinstructions, Pain management, Patient rights and responsibilities, Plan of care, Preprocedure diet Individuals Taught : Patient, Spouse Barriers to Learning : None evident Teaching Method : Explanation, Printed materials Teaching Evaluation : Verbalizes understanding POLO JEAN-BAPTISTE LPN - 06/13/2013 13:09 CDT Source: [facility] POWERCHART Document Id: [id number] CDT!10 documented in this encounter Miscellaneous Notes Miscellaneous - Jerica Ellison M.D. - 06/13/2013 11:47 AM CDT Ambulatory Patient Summary [address], [address] [place] [address] Visit Information Name: [facility] Number: [id number] Current Date: 06/13/2013 11:47:26 Physicians Attending Provider: JERICA ELLISON MD Primary Care Provider: CATHY MCCOY MD Your Medications Here is a list of your medications. It is important to take your medications as directed. Use a pillbox or chart to help remind you to take your medications. Please let your doctor or nurse know if you have problems taking your medications. Medication/Strength Dose Route Frequency Indications/Special Instructions/Comments/Notes polyethylene glycol 3350 with electrolytes (MoviPrep oral powder for reconstitution) 240 mL Oral every 10 minutes emollients, topical (Lubricating Jelly topical gel) 1 [...] lispro (Humalog Mix 75/25 subcutaneous suspension) See [id number] units bid lisinopril (lisinopril 5 mg oral tablet) 5 [...] No Appointments found Your Goals/Additional instructions: Source: [facility] POWERCHART Document Id: [id number] Miscellaneous - Jerica Ellison M.D. - 06/13/2013 11:47 AM CDT Ambulatory Depart Summary [address] [place], [place] [id number] Visit Information Name: SANDY CHANCERY MJ [facility] Number: [id number] Visit Date: 06/13/2013 11:47:25 Attending Provider: JERICA ELLISON MD Primary Care [...] medications. Medication/Strength Dose Route Frequency Indications/Special Instructions/Comments/Notes polyethylene glycol 3350 with electrolytes (MoviPrep oral powder for reconstitution) 240 mL Oral every 10 minutes emollients, topical (Lubricating Jelly topical gel) 1 [...] lispro (Humalog Mix 75/25 subcutaneous suspension) See [id number] units bid lisinopril (lisinopril 5 mg oral tablet) 5 [...] your provider for clarification. Additional Information: Source: [facility] POWERCHART Document Id: [id number] Miscellaneous - Polo Jean-Baptiste L.P.N. - 06/13/2013 11:12 AM CDT Adult Compliance Auditor Intake/History Adult Compliance Auditor Intake/History Entered On: 06/13/2013 11:16 CDT Performed On: 06/13/2013 11:12 CDT by POLO JEAN-BAPTISTE LPN Intake Chief Complaint : New patient consult Dr. Mccoy weight loss, fecal urgency and gas Temperature Core : 36.2 DegC(Converted to: 97.2 DegF) (LOW) Peripheral Pulse Rate : 60 /min Respiratory Rate : 16 /min Heart Rhythm : Regular Systolic Blood Pressure : 126 mmHg Diastolic Blood Pressure : 60 mmHg NIBP Mean : 82 mmHg BP Location : Left upper extremity Blood Pressure Cuff Size : Large Height : 194 cm(Converted to: 6 ft 4 inch(es), 76.38 inch(es)) Actual Weight : 105.8 kg(Converted to: 233 lb 4 oz) Weight Source : Standing scale Dosing Weight Clinic : 105.8 kg Clinic BSA : 2.39 Body Mass Index : 28.11 kg/m2 POLO JEAN-BAPTISTE LPN - 06/13/2013 11:12 CDT General Info Information Given By : Patient Preferred Communication Mode : Verbal Languages : Tamazight POLO JEAN-BAPTISTE MEAT COOLER - 06/13/2013 11:12 CDT Subjective Pain Symptoms : No POLO JEAN-BAPTISTE LPN - 06/13/2013 11:12 CDT Dependent Habits Tobacco Use/Currently Using : No Exposure to Tobacco Smoke : Other: non smoker Smoking Status : Never smoker POLO JEAN-BAPTISTE LPN - 06/13/2013 11:12 CDT Tobacco Use Grid Last Use : Never POLO JEAN-BAPTISTE LPN - 06/13/2013 11:12 CDT Alcohol Use : No POLO JEAN-BAPTISTE LPN - 06/13/2013 11:12 CDT Caffeine Use Grid Caffeine Use : Current Type : Coffee Frequency : Daily POLO JEAN-BAPTISTE LPN - 06/13/2013 11:12 CDT Source: [facility] POWERCHART Document Id: [id number] CDT!37 documented in this encounter Plan of Treatment Not on filedocumented as of this encounter Procedures Procedure Name Priority Date/Time Associated Comments Diagnosis CBC WITHOUT Routine 06/13/2013 1:00 PM Results f or this DIFFERENTIAL, B CDT procedure ar e in the results section. C-REACTIVE PROTEIN, Routine 06/13/2013 1:00 PM Re sults for this HIGH SENSITIVITY, S/P CDT proced ure are in the results section. THYROID-STIMULATING Routine 06/13/2013 1:00 PM Re sults for this HORMONE-SENSITIVE CDT procedure are in (S-TSH) the results section. VITAMIN B12 ASSAY, S Routine 06/13/2013 1:00 PM R esults for this CDT procedure are i n the results section. COMPREHENSIVE Routine 06/13/2013 1:00 PM Results for this METABOLIC PANEL, S/P CDT procedu re are in the results section. documented in this encounter Results (ABNORMAL) CBC without Differential (06/13/2013 1:00 PM CDT) Analysis Performed At Patho logist Time Signature Leukocytes 5.6 3.5 - 10.5 POWERCHART X109L Erythrocytes 4.32 4.32 - POWERCHART 5.72 [id number] Hemoglobin 14.4 13.5 - POWERCHART 17.5 GDL Hematocrit 43.0 38.8 - POWERCHART 50.0 MCV 99.5 (H) 81.2 - POWERCHART 95.1 FL HX RDW 13.6 11.8 - POWERCHART 15.6 Platelet Count 199 150 - 450 POWERCHART X109L Specimen (Source) Anatomical Collection Method Collection Time Re ceived Time Location / / Volume Laterality Blood 06/13/2013 1:00 PM CDT Jerica Ellison M.D. LAB BLOOD ADD-ON Performing Organization Address City/State/ZIP Code Phon e Number POWERCHART C-Reactive Protein, High Sensitivity (06/13/2013 1:00 PM CDT) P athologist Signature C-Reactive 0.7 MGL POWERCHART Protein, High Sens, S Comment: Low to Average Cardiac Risk: ?? <3.0 mg/ L High Cardiac Risk: ?>3.0 mg/L Acute Inflammation: ? >10.0 mg/L Specimen (Source) Anatomical Collection Method Collection Time Re ceived Time Location / / Volume Laterality Blood 06/13/2013 1:00 PM CDT Jerica Ellison M.D. LAB BLOOD ADD-ON Performing Organization Address City/State/ZIP Code Phon e Number POWERCHART Vitamin B12 Assay (06/13/2013 1:00 PM CDT) P athologist Signature Vitamin B12 288 211 - 946 POWERCHART Assay, S PGML Specimen (Source) Anatomical Collection Method Collection Time Re ceived Time Location / / Volume Laterality Blood 06/13/2013 1:00 PM CDT Jerica Ellison M.D. LAB BLOOD ADD-ON Performing Organization Address City/[facility] Code Phon e Number POWERCHART (ABNORMAL) CMP (Comprehensive Metabolic Panel) (06/13/2013 1:00 PM CDT) Patholo gist Method Time Signature Total Protein, S 6.6 6.4 - 8.2 POWERCHART GDL Albumin, S 4.2 3.2 - 5.2 POWERCHART GDL Sodium, S 139 135 - 145 POWERCHART MMOLL Potassium, S 5.0 3.5 - 5.0 POWERCHART MMOLL Chloride, S 109 (H) 98 - 107 POWERCHART MMOLL CO2 Total 18 (L) 21 - 32 POWERCHART MMOLL Glucose, Fasting, S 98 70 - 99 POWERCHART MGDL BUN (Blood Urea 16 5 - 25 POWERCHART Nitrogen), S MGDL Creatinine 0.8 0.8 - 1.3 POWERCHART MGDL Calcium, Total, S 9.3 8.9 - POWERCHART 10.1 MGDL Alkaline 168 (H) 40 - 129 POWERCHART Phosphatase, S UL Aspartate 46 (H) 15 - 37 POWERCHART Aminotransferase UL (AST), S Alanine 36 0 - 40 UL POWERCHART Amniotransferase, LD Bilirubin, Total, S 0.4 0.0 - 1.0 POWERCHART MGDL Anion Gap 12 7 - 15 POWERCHART MMOLL HXeGFR (MDRD) >60 >=60 POWERCHART Comment: Results are in mL/min/1.73m squared CKD Stage I: ? GFR > 90 CKD Stage II: ?GFR 60 to 89 CKD Stage III: ? GFR 30 to 59 CKD Stage IV: ? GFR 15 to 29 CKD Stage V: ?GFR < 15 or Dialysi s eGFR Black/ >60 >=60 PO WERCHART Specimen (Source) Anatomical Collection Method Collection Time Re ceived Time Location / / Volume Laterality Blood 06/13/2013 1:00 PM CDT Jerica Ellison M.D. LAB BLOOD ADD-ON Performing Organization Address City/State/ZIP Code Phon e Number POWERCHART Thyroid-Stimulating Hormone-Sensitive (s-TSH) (06/13/2013 1:00 PM CDT) P athologist Signature TSH 1.5 0.3 - 4.2 POWERCHART (Thyrotropin) MIUL Comment: Reference values have not been established for patients that are less than 12 months of age. Specimen (Source) Anatomical Collection Method Collection Time Re ceived Time Location / / Volume Laterality Blood 06/13/2013 1:00 PM CDT Jerica Ellison M.D. LAB BLOOD ADD-ON Performing Organization Address City/State/ZIP Code Phon e Number POWERCHART documented in this encounter Visit Diagnoses Not on filedocumented in this encounter
--- OUTSIDE RECORDS SUMMARY | 2022-05-24 18:29 | XMS_ITS | Encounter Summary ---
:1945 Author Organization [facility] Address [address] [place] [address] Care Team Providers Name Role Phone Unavailable Primary Care Provider Unavailable Encounter Details Date Type Department Care Team Description 11/02/2011 Hospital Encounter HX [facility] Nikia Frederick M.D. Social History Tobacco Use Types Packs/Day [...] Sign Reading Time Taken Comments Blood Pressure 110/70 11/02/2011 1:16 PM PIPE [employer]W FOREMAN Pulse - - Temperature - - Respiratory Rate - - Oxygen Saturation - - Inhaled Oxygen Concentration - - Weight 116 kg (256 lb 9.9 oz) 11/02/2011 1:16 PM PIPE [employer]W FOREMAN Height - - Body Mass Index 30.93 10/07/2011 8:56 AM PIPE CREW FOREMAN documented in this encounter Medications at Time of Discharge Medication Sig Dispensed Refills Start Date End Date BISMUTH SUBSALICYLATE ORAL Take by mouth as 0 11/200804/01/2019 needed. documented as of this encounter Nursing Notes Samira Lu - 12/15/2011 12:19 PM CDT School Year Nanny Intake (Adult) School Year Nanny Intake (Adult) Entered On: 12/15/2011 12:28 CDT Performed On: 12/15/2011 12:19 CDT by SAMIRA LU Assessment Program Type : Comprehensive Program Type of Visit : Telephone Consult Diabetes Referring Provider : NIKIA MCCOY MD Comprehensive Program Start Date : 11/02/2011 [employer]IPE CREW FOREMAN Special needs : None Method Used for DSME : Individual Diabetes Type : Type 2 19 years and older Ethnicity : White/ Diabetes Onset At Age : 44 Current Treatment : Insulin vial, Oral agents Medication Compliance : Takes meds as prescribed Medication Categories : Biguanide, Insulin Glucose Meter : Other: One Touch Ultra Monitoring Frequency : Twice daily Glucose Results : Fasting, Preprandial Supper, Other: He randomly takes his blood sugar, tries to take them every morning and then if he is not feeling well he will take them. SAMIRA LU - 12/15/2011 12:19 CDT Glucose Meter Check Grid Glucose Meter Date Checked : 11/02/2011 [employer] CRE[employer] FOREM[employer] Glucose Meter Correctly Coded : Yes Test Strips : No Glucose Meter Controls : In Range SAMIRA LU - 12/15/2011 12:19 CDT Hypoglycemia Acute Complicatons grid Frequency : Never SAMIRA LU 12/15/2011 12:19 CDT Hyperglycemia Acute Complications grid Frequency : Daily SAMIRA LU - 12/15/2011 12:19 CDT Dilated eye exam every year : Yes Dental Problems : Gum disease, Other: Goes every 3-4 months Date of Last Dental Exam : 09/01/2011 [employer]W [employer]EM[employer] Exercise Type : Aerobics Exercise Frequency : 4-6 times per week Duration : 30-60 minutes Diabetes Visit Summary : Jorge had dropped off a log sheet last week without his name on it. CDE just call him and he confirmed it was his. See Detaled Blood Glucose log. Variability continues to occur. Highs and lows. He feels lethargic when blood sugars go below 100. He eats fruit and/or drinks juice during this time. He has been suffering seasonal allergy's as of late and medicating with OTC. He states Dr Mccoy is aware of this. CDE proposed a basal/bolus insulin plan. Explained the benefit and the draw backs and asked Jorge marleyider this. He is due for his A1c mid December. We will revisti the basal bolus at that time. Time Spent With Patient : Other: 000 SAMIRA LU 12/15/2011 12:19 CDT Detailed Blood Glucose Record Detailed Blood Glucose grid Day 1 Blood Glucose Reading Day 2 Blood Glucose Reading Day 3 Blood Glucose Reading Day 4 Blood Glucose Reading Date : 12/01/2011 CDT 12/02/2011 CDT 12/03/2011 CDT 12/04/2011 CDT Fasting : 178 86 197 Postpandial Breakfast : 148 65 Prepandial Lunch : Postpandial Lunch : Prepandial Supper : 104 159 273 212 Postpandial Supper : 315 345 127 SAMIRA LU 12/15/2011 12:19 CDT SAMIRA LU 12/15/2011 12:19 CDT HAYDEN SAMIRA 12/15/2011 12:19 CDT SAMIRA LU 12/15/2011 12:19 CDT Day 5 Blood Glucose Reading Day 6 Blood Glucose Reading Day 7 Blood Glucose Reading Date : 12/05/2011 CDT 12/06/2011 CDT 12/07/2011 CDT Fasting : 130 186 222 Postpandial Breakfast : Prepandial Lunch : 63 Postpandial Lunch : 173 204 Prepandial Supper : 102 294 92 Postpandial Supper : 300 106 SAMIRA LU 12/15/2011 12:19 CDT SAMIRA LU 12/15/2011 12:19 CDT SAMIRA LU 12/15/2011 12:19 CDT Comprehensive Program Goals Diabetes Education Goals Grid Diabetes Education Goal #1 row Diabetes Education Goal #2 row Date Goal Set : 11/02/2011 PIPE CREW FOREMAN 11/02/2011 PIPE CREW FOREMAN Goal : Review insulin use and storage technique Check blood sugars fasting and one or the other; preand post noon or evening meals. Drop the sheet off in one week for CDE to review. Related Content Area : Problem Solving Monitoring Goal follow up date : 11/02/2011 PIPE CREW FOREMAN 12/15/2011 CDT Goal Achievement Rating : 100% 100% Goal Review : Achieved Achieved SAMIRA LU - 12/15/2011 12:19 CDT SAMIRA LU- 12/15/2011 12:19 CDT DSMS Plan DSMS Plan Statement : This personalized follow-up plan for on-going self- management support was developed collaboratively with the patient. The patient feels this plan will help them manage their diabetes in the future. Diabetes Self Management Support Plan : Follow up with Primary Provider SAMIRA LU - 12/15/2011 12:19 CDT Source: [employer] Document Id: [id number] CDT!95 Samira Lu - 11/15/2011 8:02 AM CST Increase in insulin Document Contains Addenda Addendum by SAMIRA LU on 18 November 2011 8:44 [employer]IPE [employer]EMAN Jorge called back 11/18/11 and confirmed that he recieved the message to increase his insulin and that he will be dropping off his log sheet on 11/18/11. Modified by and Electronically Signed by: SAMIRA LU On: 11/18/2011 08:44 AM Message left on Jorge's home phone instructing him to increase his Humalog from 80 to 83 U BID. I asked Jorge to call me back to confirm getting this message and/or if he has any questions regarding the message. Electronically Signed By: SAMIRA LU On: 11/15/2011 08:04 AM Source: [employer] Document Id: [id number] CREW FOREMAN Samira Lu - 11/02/2011 1:17 PM CST School Year Nanny Intake (Adult) School Year Nanny Intake (Adult) Entered On: 11/02/2011 13:47 [employer]EM[employer] Performed On: 11/02/2011 13:17 [employer]IPE CREW FOREMAN by SAMIRA LU Assessment Program Type : Comprehensive Program Type of Visit : Comprehensive Initial Assessment Diabetes Referring Provider : NIKIA MCCOY MD Comprehensive Program Start Date : 11/02/2011 [employer] Special needs : None Method Used for DSME : Individual Diabetes Type : Type 2 19 years and older Ethnicity : White/ Diabetes Onset At Age : 44 Current Treatment : Insulin vial, Oral agents Medication Compliance : Takes meds as prescribed Diabetes Medications Reviewed : Yes Medication Categories : Biguanide, Insulin Glucose Meter : Other: One Touch Ultra Monitoring Frequency : Twice daily Glucose Results : Fasting, Preprandial Supper, Other: He randomly takes his blood sugar, tries to take them every morning and then if he is not feeling well he will take them. HAYDEN SAMIRA Trish 11/02/2011 13:17 PIPE CREW FOREMAN Glucose Meter Check Grid Glucose Meter Date Checked : 11/02/2011 [employer]IPE CREW FOREM[employer] Glucose Meter Correctly Coded : Yes Test Strips : No Glucose Meter Controls : In Range HAYDENSAMIRA Trish 11/02/2011 13:17 PIPE [employer]W [employer]EM[employer] Blood Glucose Range Grid Blood Glucose Range Time Frame : 10/27/11-11/02/11 Fasting : 311,136,393,218 Preprandial Lunch : 235,119,311 Postprandial Lunch : 311 Preprandial Supper : 188 Postprandial Supper : 427,216 HAYDEN SAMIRA Trish 11/02/2011 13:17 PIPE [employer]W [employer]EMAN Hypoglycemia Acute Complicatons grid Frequency : Never HAYDEN SAMIRA A 11/02/2011 13:17 [employer]IPE [employer]EMAN Hyperglycemia Acute Complications grid Frequency : Daily HAYDENMICKRIOS Chambers 11/02/2011 13:17 PIPE [employer]EMAN Dilated eye exam every year : Yes Dental Problems : Gum disease, Other: Goes every 3-4 months Date of Last Dental Exam : 09/01/2011 [employer]EM[employer] Exercise Type : Aerobics Exercise Frequency : 4-6 times per week Duration : 30-60 minutes Diabetes Visit Summary : Jorge agreed to come in to visit with CDE after I called him about his recent elevated A1c. I told him I would like to work with him and Dr Mccoy in an effort to gain improved control of his blood sugars. He is a man that lives near [place]. He has had type 2 diabetes for at least 20 years andhas been on insulin for the last 4 years. He believes that his sugars are out of control because of a sore tooth. He believes there is something going on in his mouth but his dentist can not find anything wrong with the tooth. He has a very close family that he sees on a regular basis. His is a retired nurse that keepsa real close eye on him. I asked him to demonstrate to me how he prepares his insulin, and he told me how he stores it at home. His technique is very good. At the end of our session I invited him to join our group class and he stated that he was not interested in that. CDE Goal: Work with Dr Mccoy to adjust Jorge's insulin to regain control of his blood sugars. Time Spent With Patient : 60 Minutes SAMIRA LU 11/02/2011 13:17 PIPE [employer]W [employer]EMAN Education Diabetes Education Grid Topics : Medications/Effectiveness - Insulin, Medications/Effectiveness - Insulin Administration, Medications/Effectiveness - Generic/brand names, purpose, action, Monitoring - Blood Glucose, Using Results - Blood Glucose, Acute Complications - Hyperglycemia/Hypoglycemia, Psychosocial Adjustment - Cost Issues, Other: Safe needle disposal (Comment: Demostrated great technique in insulin prep. Verbalized correct storage and administration technique. Has agreed to work with CDE and Dr Mccoy, he wants very badly to regain control of his blood sugars. He verbalized what he would do if his blood sugars go < 100. This is when he begins to feel uneasy. We discussed the 15:15 rule. [SAMIRA LU 11/02/2011 13:17 PIPE CREW FOREMAN] ) Individuals Taught : Patient, Other: RN Student Lennox Barriers to Learning : None evident Teaching Method : Demonstration, Explanation, Printed materials, Teach back (Comment: Living with Diabetes; My Insulin Plan; Log sheet for recording [SAMIRA LU 11/02/2011 13:17 PIPE CREW FOREMAN] ) Teaching Evaluation : Returns demonstrations correctly, Verbalizes understanding SAMIRA LU 11/02/2011 13:17 PIPE [employer]W FOREMAN Comprehensive Program Goals Diabetes Education Goals Grid Diabetes Education Goal #1 row Diabetes Education Goal #2 row Date Goal Set : 11/02/2011 PIPE CREW FOREMAN 11/02/2011 PIPE CREW FOREMAN Goal : Review insulin use and storage technique Check blood sugars fasting and one or the other; preand post noon or evening meals. Drop the sheet off in one week for CDE to review. Related Content Area : Problem Solving Monitoring Goal follow up date : 11/02/2011 PIPE CREW FOREMAN Goal Achievement Rating : 100% Goal Review : Achieved SAMIRA LU 11/02/2011 13:17 PIPE [employer]W FOREMAN SAMIRA LU 11/02/2011 13:17 PIPE CREW FOREMAN DSMS Plan DSMS Plan Statement : This personalized follow-up plan for on-going self- management support was developed collaboratively with the patient. The patient feels this plan will help them manage their diabetes in the future. Diabetes Self Management Support Plan : Join a fitness center or gym, Follow up with Primary Provider, Other: Drop log sheet off for CDE to review. SAMIRA LU - 11/02/2011 13:17 PIPE CREW FOREMAN [facility] Document Id: [id number] PIPE CREW FOREMAN!70 CREW FOREMAN documented in this encounter Miscellaneous Notes Miscellaneous - Samira Lu - 11/28/2011 9:04 AM CDT Reminder Msg From: SAMIRA LU To: SAMIRA LU; Sent: 11/28/2011 09:04:01 CDT Show up: 01/05/2012 09:03:00 CDT Subject: Reminder Msg Please Remember to: Check his A1c, he was suppost to come in around December 28. His last A1c before increasing his insulin was 8.8% PATIENT: ( ) Call Patient ( ) Ask Patient to ( ) ( ) Call Relative ( ) Schedule Patient ( ) ( ) Call for Freight Rate Specialist ( ) Follow up on Results ( ) Other: PROVIDER: ( ) Call Physician ( ) Call Pharmacist ( ) Call Lab ( ) Other: Special Instructions: Comments: Source: [employer] Document Id: [id number] Miscellaneous - Samira Lu - 11/02/2011 1:16 PM CST Ambulatory Vitals Height Weight Ambulatory Vitals Height Weight Entered On: 11/02/2011 13:17 PIPE [employer]EM[employer] Performed On: 11/02/2011 13:16 PIPE CREW FOREMAN by SAMIRA LU Vitals/Ht/Wt Systolic Blood Pressure : 110mmHg Diastolic Blood Pressure : 70mmHg NIBP Mean : 83mmHg Actual Weight : 116.4kg(Converted to: 256lb 10oz) Dosing Weight Clinic : 116.40kg SAMIRA LU - 11/02/2011 13:16 PIPE CREW FOREMAN [facility] Document Id: [id number] PIPE CREW FOREMAN!7 CREW FOREMAN documented in this encounter Plan of Treatment Not on filedocumented as of this encounter Visit Diagnoses Not on filedocumented in this encounter
--- OUTSIDE RECORDS SUMMARY | 2022-05-24 18:29 | XMS_ITS | Encounter Summary ---
:1945 Author Organization [facility] Address [address] [place] [address] Care Team Providers Name Role Phone Unavailable Primary Care Provider Unavailable Encounter Details Date Type Department Care Team Description 01/19/2012 Hospital Encounter HX [facility] Binu Casey M.D. [address] [place] [address] Social History Tobacco Use Types Packs/Day Years [...] Sign Reading Time Taken Comments Blood Pressure 116/72 01/19/2012 9:20 AM CDT Pulse 60 01/19/2012 9:20 AM CDT Temperature - - Respiratory Rate 16 01/19/2012 9:20 AM CDT Oxygen Saturation - - Inhaled Oxygen Concentration - - Weight 116 kg (255 lb 11.7 oz) 01/19/2012 9:20 AM CDT Height 194 cm (6' 4.38) 01/19/2012 9:20 AM CDT Body Mass Index 30.82 01/19/2012 9:20 AM CDT documented in this encounter Medications at Time of Discharge Medication Sig Dispensed Refills Start Date End Date BISMUTH SUBSALICYLATE ORAL Take by mouth as 0 11/200804/01/2019 needed. documented as of this encounter Progress Notes Mj Franco M.D. - 01/19/2012 9:11 AM CDT FAMILY MEDICINE DATE: 01/19/2012 CHIEF COMPLAINT/REASON FOR VISIT Patient is a pleasant 66-year-old white male with known coronary artery disease who states that he developed some left anterior chest pain, and he points to a very specific spot just to the left of thesternum for the last 3 days. HISTORY OF PRESENT ILLNESS He states that it is aggravated by laying on that side in bed, and resolved with laying on his back.There has been no fever, or cough, or shortness of breath. There has been no radiation of this pain elsewhere, or nausea, or diaphoresis. He states he also walked about a half an hour at [facility] yesterday without any problems. CURRENT MEDICATIONS 1. Sublingual nitroglycerin p.r.n. 2. Fluocinonide topical. 3. Viagra p.r.n. 4. Metformin 1000 mg b.i.d. 5. Allopurinol 100 mg b.i.d. 6. Metoprolol 12.5 mg b.i.d. 7. Albuterol 2 puffs q.4 h p.r.n. shortness of breath. 8. Fluticasone nasal 2 sprays in each nostril daily. 9. Lisinopril 5. 10. Gemfibrozil 600 b.i.d. 11. Insulin, see instructions. ALLERGIES 1. PENICILLIN. 2. LIPITOR. 3. BEE STINGS. 4. CLINDAMYCIN. 5. ADHESIVE BANDAGES. 6. ASA. VITAL SIGNS Blood pressure 116/72. Pulse 60. Respirations 16. Temperature 36.4. Height 194. Weight 116 kg. PHYSICAL EXAMINATION ENT: There is a little bit of a trace of blood in the right naris. The left appears to be clear. There is no active bleeding noted. There is no bleeding point that could be cauterized at this time by my examination. HEART: Normal sinus rhythm without murmur, rub, gallop, click, or arrhythmia. LUNGS: Entirely clear. CHEST: There is exquisite tenderness at approximately the costochondral junction of the left anterior 3rd rib. This reproduces his pain that he has. IMPRESSION/REPORT/PLAN 1. Musculoskeletal chest wall pain. 2. Recurrent epistaxis right side. The plan is as per the ear, nose and throat physician that he had seen in the past who suggested fluticasone for the allergies, and lubricating gel for the nose. I suggested a little bacitracin ointment to the right nose as well because of a little mild anterior rhinitis that may be benefited by the antibiotic. Regarding the chest we spent a good deal of time including an illustration on the paper on the examination table regarding what [id number] is going on with the costochondritis. We also discussed the possibility of an anti-inflammatory, but also that this may well resolve itself with some time. I discussedwith him how to evaluate himself to decide whether this is something to worry or not. He will followup as needed, and was reassured. No EKG was deemed to be appropriate at this time. Moreover, he did mention that the day before he started noticing this discomfort 3 days ago he was mowing the lawn andhit a stump or something that stopped short, and jerked his left shoulder. JWD:carlos Doc#: [id number] Electronically Signed By: MJ FRANCO MD On: 01/23/2012 09:48 PM Source: [facility] [employer] Document Id: [id number] documented in this encounter Miscellaneous Notes Miscellaneous - Mj Franco M.D. - 01/19/2012 9:57 AM CDT Ambulatory Patient Summary [facility] [address] [place] [address] Visit Information Name: [facility] Current Date: 01/19/2012 09:57:02 Physicians Attending Provider: MJ FRANCO MD Primary Care Provider: NIKIA SELBY MD Your Medications Here is a list of your medications. It is important to take your medications as directed. Use a pillbox or chart to help remind you to take your medications. Please let your doctor or nurse know if you have problems taking your medications. Medication/Strength Dose Route Frequency Indications/Special Instructions/Comments insulin lispro protamine-insulin lispro (Humalog Mix 75/25 subcutaneous suspension) See [id number] units bid albuterol (albuterol CFC free 90 [...] No Appointments found Your Goals/Additional instructions: Source: [facility] [employer] Document Id: [id number] Miscellaneous - Mj Franco M.D. - 01/19/2012 9:57 AM CDT Ambulatory Depart Summary [address] [address] Visit Information Name: [facility] Visit Date: 01/19/2012 09:57:02 Attending Provider: MJ FRANCO MD Primary Care Provider: NIKIA SELBY MD [facility] has been given the following list of medications: Your Medications It is important to take your medications as directed. Use a pill box or chart to help remind you to take your medications. Please let your doctor or nurse know if you have problems taking your medications. Medication/Strength Dose Route Frequency Indications/Special Instructions/Comments insulin lispro protamine-insulin lispro (Humalog Mix 75/25 subcutaneous suspension) See [id number] units bid albuterol (albuterol CFC free 90 [...] your provider for clarification. Additional Information: Source: [facility]OWER[facility]ART Document Id: [id number] Miscellaneous - Shirin Weeks L.PKamilaN. - 01/19/2012 9:20 AM CDT Adult State Manager Intake/History Adult State Manager Intake/History Entered On: 01/19/2012 9:25 CDT Performed On: 01/19/2012 9:20 CDT by SHIRIN WEEKS LPN Intake Chief Complaint : pt was awakened in the middle of the night on Mon night with a sharp pain in his chest. The pain lasted only a second, then felt tender in that area. He continues to have the pain when lying on his left side on and off. Also having nosebleeds Temperature Core : 36.4C(Converted to: 97.5DegF) (LOW) Peripheral Pulse Rate : 60/min Respiratory Rate : 16/min Heart Rhythm : Regular Systolic Blood Pressure : 116mmHg Diastolic Blood Pressure : 72mmHg NIBP Mean : 87mmHg BP Location : Left upper extremity Blood Pressure Cuff Size : Large Height : 194cm(Converted to: 6ft 4inch(es), 76.38inch(es)) Actual Weight : 116kg(Converted to: 255lb 12oz) Dosing Weight Clinic : 116.00kg Clinic BSA : 2.50 Body Mass Index : 30.82kg/m2 SHIRIN WEEKS PHOTO OFFSET PRINTER - 01/19/2012 9:20 CDT General Info Information Given By : Patient Preferred Communication Mode : Verbal Languages : Mongolian SHIRIN WEEKS PHOTO OFFSET PRINTER - 01/19/2012 9:20 CDT Subjective Pain Symptoms : Yes SHIRIN WEEKS [facility] - 01/19/2012 9:20 CDT Pain Pain Assessment Grid Pain 1 Location : Other: chest pain Intensity : 1 Comment : when he is having the sharp pain it is a 9 SHIRIN WEEKS PHOTO OFFSET PRINTER - 01/19/2012 9:20 CDT Dependent Habits Tobacco Use/Currently Using : No Exposure to Tobacco Smoke : Other: non smoker Smoking Status : Never smoker SHIRIN WEEKS PHOTO OFFSET PRINTER - 01/19/2012 9:20 CDT Caffeine Use Grid Caffeine Use : Current Type : Coffee Frequency : Daily Amount : 1-2 SHIRIN WEEKS PHOTO OFFSET PRINTER - 01/19/2012 9:20 CDT Allergy Allergies (Active) Adhesive Bandage Estimated Onset Date: Unspecified ; Reactions: Rash ; Created By: NOREEN HERNANDEZ LPN; Reaction Status: Active ; Category: Drug ; Substance: Adhesive Bandage ; Type: Allergy ; Updated By: NOREEN HERNANDEZ LPN; Reviewed Date: 10/07/2011 9:01 HYGIENE TEACHER aspirin Estimated Onset Date: Unspecified ; Reactions: Nosebleeds ; Created By: CECILIO SELBY MD; Reaction Status: Active ; Category: Drug ; Substance: aspirin ; Type: Allergy ; Updated By: NIKIA SELBY MD; Reviewed Date: 11/01/2011 17:31 HYGIENE TEACHER Bee Stings Estimated Onset Date: Unspecified ; Created By: AMANDEEP BURRELL LPN; Reaction Status: Active ; Category: Environment ; Substance: Bee Stings ; Updated By: AMANDEEP BURRELL LPN; ReviewedDate: 10/07/2011 9:01 HYGIENE TEACHER clindamycin Estimated Onset Date: Unspecified ; Created By: AMANDEEP BURRELL LPN; Reaction Status:Active ; Category: Drug ; Substance: clindamycin ; Updated By: AMANDEEP BURRELL LPN; Reviewed Date: 10/07/2011 9:01 HYGIENE TEACHER Lipitor Estimated Onset Date: Unspecified ; Reactions: Chest Pain:Pressure/Tightness ; Created By: AMANDEEP BURRELL LPN; Reaction Status: Active ; Category: Drug ; Substance: Lipitor ; Type: Allergy ; Updated By: AMANDEEP BURRELL LPN; Reviewed Date: 10/07/2011 9:01 HYGIENE TEACHER penicillin Estimated Onset Date: Unspecified ; Reactions: Hives, SOB - Shortness of breath ; CreatedBy: AMANDEEP BURRELL LPN; Reaction Status: Active ; Category: Drug ; Substance: penicillin ; Type:Allergy ; Updated By: AMANDEEP BURRELL LPN; Reviewed Date: 10/07/2011 9:01 HYGIENE TEACHER Source: [facility] [employer] Document Id: [id number] CDT!39 documented in this encounter Plan of Treatment Not on filedocumented as of this encounter Visit Diagnoses Not on filedocumented in this encounter
--- OUTSIDE RECORDS SUMMARY | 2022-05-24 18:29 | XMS_ITS | Encounter Summary ---
:1945 Author Organization [facility] Address [address] [place] [address] Care Team Providers Name Role Phone Unavailable Primary Care Provider Unavailable Encounter Details Date Type Department Care Team Description 08/25/2011 Hospital Encounter HX [facility] Binu Casey M.D. [address] [place] [address] Social History Tobacco Use Types [...]
--- OUTSIDE RECORDS SUMMARY | 2022-05-24 18:30 | XMS_ITS | Encounter Summary ---
:1945 Author Organization [facility] Address [address] [place] [address] Care Team Providers Name Role Phone Unavailable Primary Care Provider Unavailable Encounter Details Date Type Department Care Team Description 12/29/2008 Hospital Encounter HX [facility] Tammy Mccoy M.D. Social History Tobacco [...]
--- OUTSIDE RECORDS SUMMARY | 2022-05-24 18:30 | XMS_ITS | Encounter Summary ---
:1945 Author Organization [facility] Address [address] [place] [address] Care Team Providers Name Role Phone Unavailable Primary Care Provider Unavailable Encounter Details Date Type Department Care Team Description 03/10/2010 Hospital Encounter HX [facility] Tammy Mccoy M.D. Social History Tobacco [...]
--- OUTSIDE RECORDS SUMMARY | 2022-05-24 18:30 | XMS_ITS | Encounter Summary ---
:1945 Author Organization [facility] Address [address] [place] [address] Care Team Providers Name Role Phone Unavailable Primary Care Provider Unavailable Encounter Details Date Type Department Care Team Description 06/23/2008 Hospital [facility] [address] [address] [place], [place] [id number] (Wo rk) Social History Tobacco Use Types [...] PM CDT documented as of this encounter OR Notes Op Note - Reuben Daigle M.D. - 06/23/2008 12:00 AM [place] [address] Name: AVE CHANCE MR#: [id number] : [birth year] Age: 63 Dictating Provider: Reuben Daigle Adm/Serv Date: 06/23/08 OPERATIVE REPORT DATE OF OPERATION: 06/23/2008 PREOPERATIVE DIAGNOSIS: Age-related colorectal cancer screening. POSTOPERATIVE DIAGNOSES: 1. Normal terminal ileum. 2. No polyps were found. 3. Mild diverticulosis of the sigmoid colon. 4. Hemorrhoids. OPERATION: Screening colonoscopy with terminal ileoscopy. ANESTHESIA: Versed 4 mg IV; fentanyl 100 mcg IV. DESCRIPTION OF PROCEDURE: A focused history and physical was performed. Informed consent was obtained from the patient who understands the benefits and possible risks of the procedure that include, but are not limited to, bleeding, infection, aspiration, perforation, adverse medication reaction, missed lesions, and need for surgery. The vital signs and oxygen saturation of the patient were monitored throughout the procedure. Prior to the colonoscopy, a digital rectal examination was performed that revealed small external hemorrhoids. The colonoscope was introduced through the anus and was advanced to the terminal ileum. The prep was adequate/fair. Five centimeters of terminal ileum were examined. No abnormalities were found. No polyps were found in the entire colon. Mild diverticulosis of the sigmoid colon was identified. Retroflexion of the colonoscope in the rectum revealed no abnormalities. The colonoscope was then withdrawn and the procedure was terminated. Total duration of the procedure was 18 minutes (withdrawal 15 minutes). The patient tolerated the procedure well and there were no immediate complications. IMPRESSION: 1. Normal terminal ileum. 2. No polyps were found. 3. Mild diverticulosis. 4. Small external hemorrhoids. RECOMMENDATIONS: 1. Fiber-rich diet. 2. Repeat colonoscopy in 10 years. Reuben Daigle MD Authenticated by Reuben Daigle MD on 10/13/2008 22:32:55 Authorized physician signature on file rks cc: MD [address] [place], [address] [facility], [place] [address] Doc#: [id number] RE: AVE CHANCE J MR#: [id number] PAGE: 2 [facility] NAME: AVE CHANCE [facility] OPERATIVE REPORT [facility] NAME: AVE CHANCE [facility] MR#: [id number] [place] [address] : 1945 AGE: 63Y PHYSICIAN: Reuben Daigle MD ADMIT DATE: 06/23/2008 OPERATIVE REPORT [facility] NAME: AVE CHANCE [facility] OPERATIVE REPORT [facility] Name: AVE CHANCE OPERATIVE REPORT Source: [place] ISJHXDICTAPHONESYS Document Id: [id number] documented in this encounter Plan of Treatment Not on filedocumented as of this encounter Visit Diagnoses Not on filedocumented in this encounter
--- OUTSIDE RECORDS SUMMARY | 2022-05-24 18:30 | XMS_ITS | Encounter Summary ---
:[address] [facility] Address [address] [place] [address] Care Team Providers Name Role Phone Unavailable Primary Care Provider Unavailable Encounter Details Date Type Department Care Team Description 03/02/2010 Hospital Encounter [facility] Nikia Rosenthal M.D. Social History Tobacco Use [...] encounter Progress Notes Nikia Mccoy M.D. - 03/02/2010 8:54 AM CDT [facility] DATE OF SERVICE: 03/02/2010 REASON FOR VISIT He is a 65-year-old male here for a diabetic check. HISTORY OF PRESENT ILLNESS He said his sugars are high. They are in the 270 range in the a.m. and p.m. His is with him andsays that he usually takes big helpings at meals and always has because he is a big farshad. He does sayhe takes ice cream at night. PAST, FAMILY, AND SOCIAL HISTORY Medical: Skin cancer removed, diabetes, coronary artery disease, hypertension, hyperlipidemia, gout.He had an tqx-ti-lgrldjdi cardiac arrest, atrial stent, acute myocardial infarction, colonoscopy andexcision of a calcaneal spur. He also had a severe allergic reaction to a medication that we think was Lipitor. That actually put him in the hospital again. Family: Glaucoma, cataracts, renal stones, diabetes, sleep apnea, coronary artery disease, cancer. Social: He does not smoke. He exercises 3 to 4 times a week. Rare alcohol. MEDICATIONS Allopurinol 100 mg b.i.d.; gemfibrozil 600 mg b.i.d.; metformin 1000 mg b.i.d.; metoprolol 25 mg half tablet b.i.d.; Ramipril 5 mg daily; Viagra 50 mg p.r.n.; Januvia 50 mg 1 tablet daily; aspirin 81 mg daily; Pepto-Bismol p.r.n.; Benadryl p.r.n.; ibuprofen p.r.n.; nitroglycerin p.r.n.; Lamisil topical p.r.n.; glipizide 10 mg b.i.d. ALLERGIES PENICILLIN, LIPITOR, BEE STINGS, CLINDAMYCIN. REVIEW OF SYSTEMS He is having nosebleeds and he thinks it is a side effect of the Ramipril. He has some fatigue, weight loss of 10 pounds, but he is trying. He said he feels like his stamina is down. ENT: He has wax inhis ears. Chest: No shortness of breath or cough. Cardiovascular: No chest pain or palpitations. GI:He has a bulge that comes out when he puts pressure on his abdominal muscles. He is quite concerned about an abdominal aortic aneurysm because he knows of somebody that had one. He is too big a farshad to really evaluate that well. Also, he said for his bowel movements he has 2 to 3 days when he has a very small one and then he has a large BM and it goes in that pattern over and over again. Genitourinary: With urine he has the urination and has a bowel movement and then urinates more. Musculoskeletal: He has some cramping in the morning when he stretches. Neurologic: No numbness or tingling. Depression: He denies. Skin: He has dry heels and elbows. He uses crack cream when they are dry, but he has notused it lately. Endocrine: He said he feels like he is always hot, but he always had. Heat has been hard on him. He also has a lump on his neck on the front of his neck that he can basically see. He really does not feel it a whole lot. EXAMINATION Blood pressure 124/74. Pulse 56. Respirations 12. Temperature 36.4. Weight 112.4 kg. Neck: Supple without lymphadenopathy, thyromegaly or bruits. I did not feel any masses where he was indicating the lump. Chest: Clear to auscultation bilaterally. Cardiovascular: Regular rate and rhythm. No murmur. Abdomen: He does have a bulge down the middle. I could not feel peritoneal edge around the bulge. He did not have a pulsatile mass. Otherwise, soft, plus bowel sounds, nontender. Extremities: Without edema. Pulses are normal. Sensation normal. IMPRESSION/REPORT/PLAN 1. Diabetes. 2. Hyperlipidemia. 3. Hypertension. 4. Possible hernia. We are going to check a hemoglobin A1c, lipid-2, potassium, magnesium, calcium, TSH because of his heat problem, BUN and creatinine for his diabetes, hyperlipidemia and hypertension. I would like to get a CT of the abdomen to check out if the bulge that he feels is truly a hernia or just a weakened raphia . This would also show if he has an abdominal aortic aneurysm. He is to return in three months. We decided to stop the Januvia and the glipizide and start him back up on Lantus and go up 2 units daily until his sugars are getting to be around the 140-150 range. We will see how he comes out then. SILVIANO:tab Doc#: [id number] Electronically Signed By:NIKIA MCCOY MD On 06/13/2010 08:56 pm Modified by:NIKIA MCCOY MD On 06/13/2010 08:56 pm Source: [facility] ISJDICTAPHONESYS Document Id: [id number] documented in this encounter Miscellaneous Notes Miscellaneous - Nikia Mccoy M.D. - 03/02/2010 9:56 AM CDT Ambulatory Depart Summary [address] [address] Visit Information Name: JORGE CHANCE Current Date: 03/02/2010 09:56:38 Primary Care Provider: NIKIA MCCOY MD JORGE CHANCE has been given the following list of medications: Your Medications It is important to take your medications as directed. Use a pill box or chart to help remind you to take your medications. Please let your doctor or nurse know if you have problems taking your medications. Medication/Strength Dose Route Frequency Indications/Special Instructions/Comments sitagliptin (Januvia 50 mg oral tablet) 1 tab(s) Oral once a day would like to check hgbA1C allopurinol (allopurinol 100 mg oral tablet) 100 mg Oral two times a day gout metformin (metformin 1000 mg oral tablet) 1,000 mg Oral two times a day with meals diabetes glipiZIDE (glipiZIDE 10 mg oral tablet) 10 mg Oral two times a day diabetes/glucose / needs cecile't gemfibrozil (gemfibrozil 600 mg oral tablet) 600 mg Oral two times a day sildenafil (Viagra 50 mg oral tablet) 1 tablet one hour prior to sexual activity Oral once a day as needed for erectile dysfunction ramipril (ramipril) 5 mg Oral once a day hypertension / needs diabetic check metoprolol (metoprolol 25 mg oral tablet) 12.5 mg Oral two times a day hypertension terbinafine topical (Lamisil Topical) 1 cecile Topical once a day rash nitroglycerin (nitroglycerin 0.4 mg sublingual tablet) 1 tab(s) Sublingual as needed chest pain diphenhydrAMINE (Benadryl) Oral as needed bismuth subsalicylate (Pepto-Bismol) Oral as needed upset stomach ibuprofen (ibuprofen) Oral as needed aspirin (aspirin 81 mg oral tablet) 81 mg Oral once a day preventativae Additional Information: Yes - Current list of reconciled medications is provided and explained to the patient and/or family, guardian/caregiver. Source: [facility] POWERCHART Document Id: [id number] Electronically signed by Gricelda [facility] Pairer Inspector [id number] at 02/13/2017 2:56 AM CDT Miscellaneous - Juan Luis Keen L.P.N. 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 Intake/History Adult Maintenance Engineer Intake/History Entered On: 03/02/2010 9:02 CDT Performed On: 03/02/2010 9:00 CDT by JUAN LUIS KEEN LPN Intake Chief Complaint: diabetic check and labs Temperature Core: 36.4DegC(Converted to: 97.5DegF) (LOW) Peripheral Pulse Rate: 56bpm (LOW) Respiratory Rate: 12br/min (LOW) Systolic Blood Pressure: 124mmHg Diastolic Blood Pressure: 74mmHg NIBP Mean: 91mmHg BP Location: Left upper extremity Actual Weight: 112.400kg(Converted to: 247.800lb) Dosing Weight Clinic: 112.40kg JUAN LUIS KEEN LPN - 03/02/2010 9:00 CDT General Info Information Given By: Patient Preferred Communication Mode: Verbal Languages: Cymraes JUAN LUIS KEEN LPN - 03/02/2010 9:00 CDT Subjective Pain Symptoms: No JUAN LUIS KEEN LPN - 03/02/2010 9:00 CDT Dependent Habits Tobacco Use/Currently Using: No JUAN LUIS KEEN LPN - 03/02/2010 9:00 CDT Allergies Allergies (Active) Bee Stings Estimated Onset Date: Unspecified ; Created By: AMANDEEP BURRELL LPN; Reaction Status: Active ; Category: Environment ; Substance: Bee Stings ; Updated By: AMANDEEP BURRELL LPN; ReviewedDate: 03/02/2010 8:58 CDT clindamycin Estimated Onset Date: Unspecified ; Created By: AMANDEEP BURRELL LPN; Reaction Status:Active ; Category: Drug ; Substance: clindamycin ; Updated By: AMANDEEP BURRELL LPN; Reviewed Date: 03/02/2010 8:58 CDT Lipitor Estimated Onset Date: Unspecified ; Reactions: Chest Pain:Pressure/Tightness ; Created By: AMANDEEP BURRELL LPN; Reaction Status: Active ; Category: Drug ; Substance: Lipitor ; Type: Allergy ; Updated By: AMANDEEP BURRELL LPN; Reviewed Date: 03/02/2010 8:58 CDT penicillin Estimated Onset Date: Unspecified ; Reactions: Hives, SOB - Shortness of breath ; CreatedBy: AMANDEEP BURRELL LPN; Reaction Status: Active ; Category: Drug ; Substance: penicillin ; Type:Allergy ; Updated By: AMANDEEP BURRELL LPN; Reviewed Date: 03/02/2010 8:58 CDT [facility]: [facility] Document Id: [id number] CDT!20 documented in this encounter Plan of Treatment Not on filedocumented as of this encounter Visit Diagnoses Not on filedocumented in this encounter
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
--- OUTSIDE RECORDS SUMMARY | 2022-05-24 18:30 | XMS_ITS | Encounter Summary ---
:1945 Author Organization [facility] Address [address] [place] [address] Care Team Providers Name Role Phone Unavailable Primary Care Provider Unavailable Encounter Details Date Type Department Care Team Description 01/21/2011 Hospital En[facility] [place]la Gutiérrez M.D. Social History Tobacco Use Types [...] Priority Date/Time Associated Diagnosis Comme nts DX CHEST AP OR PA Routine 01/21/2011 11:44 AM Res ults for this AND LATERAL 2 VIEWS CDT procedur e are in the results section. documented in this encounter Results DX Chest AP or PA and Lateral 2 Views (01/21/2011 11:44 AM CDT) Anatomical Region Laterality Modality Chest N/A Radiographic Imaging Specimen (Source) Anatomical Collection Method Collection Time Re ceived Time Location / / Volume Laterality 01/21/2011 11:44 AM CDT Addenda Addendum by Provider, Junior Worthington o farida 01/21/2011 11:44 AM CDT RAD^^^MA XR Chest 2 Views 01/21/2011 11:44:00 Impressions 01/21/2011 12:10 PM CDT No significant interval change, no active pulmonary disease. Narrative 01/21/2011 12:10 PM CDT HISTORY: Shortness of breath. ?? COMPARISON: 04/13/2007. ?? FINDINGS: Heart size and pulmonary vascu larity are within normal limits. No acute appearing infiltrates o r effusions are identified. There is no significant interval change compared with 04/13/2007. ?? Procedure Note Macario Yeager Jr., M.D. / Tasha salgado, Junior Worthington - 02/01/2017 HISTORY: Shortness of breath. COMPARISON: 04/13/2007. FINDINGS: Heart size and pulmonary vascu larity are within normal limits. No acute appearing infiltrates o r effusions are identified. There is no significant interval change compared with 04/13/2007. IMPRESSION: No significant interval barraza ge, no active pulmonary disease. Alpa Gonzalez RKamilaTKamila(R)(CT), R.T.(R) IMG DIAGNOSTI C IMAGING PROCEDURES documented in this encounter Visit Diagnoses Not on filedocumented in this encounter
--- OUTSIDE RECORDS SUMMARY | 2022-05-24 18:30 | XMS_ITS | Encounter Summary ---
:1945 Author Organization [facility] Address [address] [place] [address] Care Team Providers Name Role Phone Unavailable Primary Care Provider Unavailable Encounter Details Date Type Department Care Team Description 02/26/[address] [facility] [place] Cathy Rosenthal M.D. Social History Tobacco Use [...] or relatives? How often do you attend nondenominational or More than 4 times per year 06/14/2019 advent services? Do you belong to any clubs or Yes 06/14/2019 organizations such as nondenominational groups, unions, fraternal or athletic groups, or [...] encounter Progress Notes Cathy Mccoy M.D. - 02/26/2008 12:00 [place] [address] Name: JORGE CHANCE MR#: [id number] : [birth year] Dictating Provider: Cathy Mccoy MD Serv Date: 02/26/08 CLINIC NOTE S: He is a 63-year-old gentleman here for a diabetic check. He is doing well with his diet, but he is not seeing his sugars getting where he would like them to be. They run around 170. The lowest he has seen is 120 a couple of times. He says he is eating mostly fruits and vegetables, side salads, fish, turkey, and he exercises regularly. He is drinking lots of water. It sounds like he is doing all the things he should be. MEDICATIONS: Glipizide 10 mg b.i.d.; Avandia 2 mg daily; allopurinol 100 mg b.i.d.; aspirin 81 mg daily; metoprolol 12.5 mg b.i.d.; metformin 1000 mg b.i.d.; TriCor 48 mg daily; Lantus 13 units at bedtime. PAST MEDICAL HISTORY: Diabetes, gout, hypertension, hyperlipidemia, and an ND with stent placement in 2005, and he had an out of hospital arrest at that point. He also had an allergic reaction shortly after that. REVIEW OF SYSTEMS: Chest - Without shortness of breath or cough. Cardiovascular - No chest pain or palpitations. Musculoskeletal - He has pain in his right shoulder when he raises his shoulder, but this is kind of new, and he thinks it is probably going to go away on its own. GI - No nausea, vomiting, diarrhea, or constipation. - No dysuria, hematuria, or incontinence. He has no problems starting his stream. Endocrine - No increased thirst, urination, heat, or cold intolerance. Neurologic - No numbness, tingling, or seizures. O: Blood pressure 110/78. Pulse 60. Respirations 16. Temperature 36.3. Weight 118.9. Neck - Supple without lymphadenopathy, thyromegaly, or bruits. Chest - Clear to auscultation bilaterally. Cardiovascular - Regular rate and rhythm, no murmur. Right shoulder - Nontender to palpation. Feet - Have good skin. Pulses are strong and sensation is normal. A: DIABETES. P: We are going to check a Lipid-II, AST, hemoglobin A1c, microalbumin, PSA, and we will set him up for a colonoscopy. He is going to have to probably be seen by the GI specialist before they do the colonoscopy because of his past medical history. Cathy Mccoy MD /[facility] Authenticated by Cathy Mccoy MD on 03/04/2008 16:50:22 Authorized physician signature on file Doc#: [id number] [facility] NAME: OFELIA JORGE J [facility] MR#: [id number] [place] [address] : 1945 PHYSICIAN: Cathy Mccoy MD VISIT DATE: 02/26/2008 CLINIC PROGRESS NOTE [facility] Name: JORGE CHANCE CLINIC PROGRESS NOTE Source: [place] ISJHXDICTAPHONESYS Document Id: [id number] documented in this encounter Plan of Treatment Not on filedocumented as of this encounter Visit Diagnoses Not on filedocumented in this encounter
--- OUTSIDE RECORDS SUMMARY | 2022-05-24 18:30 | XMS_ITS | Encounter Summary ---
:1945 Author Organization [facility] Address [address] [place] [address] Care Team Providers Name Role Phone Unavailable Primary Care Provider Unavailable Encounter Details Date Type Department Care Team Description 12/07/2007 Hospital Encounter [facility] [place] Cathy Rosenthal M.D. Social History [...] encounter Progress Notes Cathy Mccoy M.D. - 12/07/2007 12:00 [place] [address] Name: JORGE CHANCE MR#: [id number] : [birth year] Dictating Provider: Cathy Mccoy MD Serv Date: 12/07/07 CLINIC NOTE S: This 62-year-old male here at the request of Sarika Us for preoperative examination for oral surgery. This will be occurring at [facility] in [place] on 12/12/[address] Us. This is for removal of a cyst in his mouth. She previously removed the cyst, but it grew back. PAST MEDICAL HISTORY: Diabetes, gout, hypertension, hyperlipidemia. Had an NH with stent placed times 4 and along with this was an out of hospital arrest. ALLERGIES: HAD AN ALLERGIC REACTION TO I BELIEVE IT WAS LIPITOR. Had heel spur removal and cyst removal. FAMILY HISTORY: No anesthesia or bleeding problems. He does not smoke nor use alcohol. ALLERGIES: PENICILLIN, LIPITOR, BEE STINGS, CLINDAMYCIN, AND BAND-AIDS. REVIEW OF SYSTEMS: Psychiatric - Negative. Nervous system - No numbness, tingling, or seizures. HEENT - There was some redness when he blew his nose this morning. Respiratory - No shortness of breath or cough. Cardiovascular - No chest pain or palpitations. - No dysuria, hematuria. GI - He had a loose stool this morning and kind of off and on for a chronic time. Endocrine - Negative. Electrolyte - Negative. Musculoskeletal - No aches or pains. Anesthesia problems - None. MEDICATIONS: Glipizide 10 mg b.i.d.; Avandia 2 mg daily; allopurinol 100 mg b.i.d.. ; aspirin 81 mg daily; metoprolol 12.5 mg b.i.d.; metformin 1000 mg b.i.d.; TriCor 48 mg daily; Lantus 13 units at bedtime. O: Height is 193 cm. Weight 121.6 kg. Blood pressure 110/70. Pulse 64. Respirations 16. Temperature 36.8. HEENT - Tympanic membranes are clear. Oropharynx is nonerythematous. Neck - Supple without lymphadenopathy or thyromegaly. Chest - Clear to auscultation bilaterally. Cardiovascular - Regular rate and rhythm, no murmur. Breasts are normal. and rectal were deferred because they were just done. Abdomen - Soft, plus bowel sounds, nontender. Extremities - Without edema. Back - Nontender. Neuro - DTRs are 2+/4. Strengths are 5/5. EKG shows sinus bradycardia with a rate of 56, so cannot rule out an anteroseptal infarct, but has not changed from previous EKG done on September 28, 2006. A: PREOPERATIVE EXAMINATION. P: He is okayed for surgery. Cathy Mccoy MD /[facility] Authenticated by Cathy Mccoy MD on 03/31/2008 09:39:36 Authorized physician signature on file [facility] NAME: JORGE CHANCE [facility] MR#: [id number] [place] [address] : 1945 PHYSICIAN: Cathy Mccoy MD VISIT DATE: 12/07/2007 CLINIC PROGRESS NOTE [facility] Name: JORGE CHANCE CLINIC PROGRESS NOTE Source: [facility] ISJHXDICTAPHONESYS Document Id: [id number] documented in this encounter Plan of Treatment Not on filedocumented as of this encounter Visit Diagnoses Not on filedocumented in this encounter
--- OUTSIDE RECORDS SUMMARY | 2022-05-24 18:30 | XMS_ITS | Encounter Summary ---
:1945 Author Organization [facility] Address [address] [place] [address] Care Team Providers Name Role Phone Unavailable Primary Care Provider Unavailable Encounter Details Date Type Department Care Team Description 11/06/2007 Hospital Encounter HX [facility] [place] Cathy Rosenthal M.D. Social History Tobacco [...] encounter Progress Notes Cathy Mccoy M.D. - 11/06/2007 12:00 [place] [address] Name: JORGE CHANCE MR#: [id number] : [birth year] Dictating Provider: Cathy Mccoy MD Serv Date: 11/06/07 CLINIC NOTE S: This 62-year-old male is here for diabetic check and he has been getting some high blood sugars. He says his blood sugars have been all over since about mid September which is when he started Lantus. Yesterday his best sugar was before supper and it was 90. This morning it was 140. It has gone as high as 350 but that was after eating. MEDICATIONS: He is using 10 units of Lantus along with his oral medications of glipizide 10 mg twice daily, Avandia 2 mg daily, and metformin 1000 mg twice daily. He is also using allopurinol 100 mg twice daily, aspirin 81 mg daily, metoprolol 12.5 twice daily, TriCor 48 mg daily. PAST MEDICAL HISTORY: Diabetes, gout, hypertension, hyperlipidemia. He had a myocardial infarction with out of the hospital arrest in October 2005. He had stents placed x4. He had an allergic reaction to Lipitor. He has also had removal of a heel spur. ALLERGIES: LIPITOR, PENICILLIN, BEE STINGS, BAND-AIDS AND CLINDAMYCIN. He was advised to have colonoscopy. He thinks because of his diet he is having problems because when he eats carbohydrates his sugars go up and take a long time to go down. He also complains of a sore right thigh which has bothered him over 2 years. It started after a long car trip. He is still having some pain basically in the morning. Sometimes he cannot even walk but it improves as the day goes on and actually is pretty painless by the time the afternoon rolls around. He is not having any numbness. Three nights ago his right trapezius muscle was very sore, but that seems to be improving. He has been having fairly normal stools, but complains of getting constipated and once he gets that broke loose he then has diarrhea for a while and then goes back to normal. I suggested using Metamucil for those problems. Also, he complains that recently he is dizzy when he walks on the treadmill and only when he is walking faster. It is just an unsteady feeling and now he has to touch the sidebar to get balance. He says most of his sugars are between 170 to 220. We discussed increasing his Lantus versus going to Lantus plus Humalog and forgetting the oral medications or using a Humalog 70/30 mix. O: Blood pressure 102/70, pulse 60, respirations 20, temperature 36. Weight 120.1. Please see pink adult health history form. Recently, he did have an aggressive cyst removed from his left jaw and we reviewed this quite thoroughly. Chest is clear to auscultation bilaterally. Cardiovascular - Regular rate and rhythm, no murmur. Left foot is better than the right foot as far as sensation is concerned. His pulses are bilaterally normal. He does not have pain in the sciatic notch or the trochanteric bursa. Pain is right under the gluteus justin, question piriformis syndrome. He has full range of motion of the right hip and no pain with eversion or inversion. Log roll is negative. On doing the Romberg, he was a little tippy. A: 1. DIABETES. 2. RIGHT THIGH PAIN, QUESTION PIRIFORMIS SYNDROME. 3. BALANCE ISSUES. P: We are going to increase his Lantus to 15 units and recheck him in a month or so. As far as the thigh is concerned, we are going to have him see physical therapy to see if they agree with my thought. He is going to try to avoid carbohydrates more. We are going to check a Lipid-II, hemoglobin A1c, AST and I gave him guaiacs since he refused a colonoscopy. Cathy Mccoy MD /neo/yissel Authenticated by Cathy Mccoy MD on 11/29/2007 11:58:52 Authorized physician signature on file [facility] NAME: JORGE CHANCE [facility] MR#: [id number] [place] [address] : 1945 PHYSICIAN: Cathy Mccoy MD VISIT DATE: 11/06/2007 CLINIC PROGRESS NOTE [facility] Name: JORGE CHANCE [facility] PROGRESS NOTE Source: [place] ISJHXDICTAPHONESYS Document Id: [id number] documented in this encounter Plan of Treatment Not on filedocumented as of this encounter Visit Diagnoses Not on filedocumented in this encounter
--- OUTSIDE RECORDS SUMMARY | 2022-05-24 18:30 | XMS_ITS | Encounter Summary ---
:1945 Author Organization [facility] Address [address] [place] [address] Care Team Providers Name Role Phone Unavailable Primary Care Provider Unavailable Encounter Details Date Type Department Care Team Description 03/17/[address] [facility] [place]athy Rosenthal M.D. Social History Tobacco [...] encounter Progress Notes Cathy Mccoy M.D. - 03/17/2008 12:00 [place] [address] Name: JORGE CHANCE MR#: [id number] : [birth year] Dictating Provider: Cathy Mccoy MD Serv Date: 03/17/08 CLINIC NOTE S: 63-year-old male with complaint of sore throat for four days. MEDICATIONS: Glipizide 10 mg b.i.d., Avandia 2 mg daily, Allopurinol 100 mg b.i.d., Aspirin 81 mg daily, Metoprolol 12.5 mg two times daily, Metformin 1000 mg b.i.d., Tricor 48 mg daily, Lantus 15 units daily. He states he has had sore throat for four days. Sometimes he feels like it is hard to swallow. He has been taking DayQuil, but that only helps temporarily. He has no exposure that he knows of, but his eyes are mattering more. ALLERGIES: PENICILLIN, BEE STINGS, LIPITOR, BAND-AIDS, and CLINDAMYCIN. O: Blood pressure - 118/78. Pulse - 66. Respirations - 16. Temperature - 37.1. Weight - 117. Tympanic membranes are clear. Oropharynx with 1+ tonsils, slightly erythematous on the right side. Sinuses are nontender. Neck is supple with bilateral lymphadenopathy. Rapid strep was negative. A: PHARYNGITIS. P: Since he has had it for four days I am going to treat him with Z-Yves. We will culture the strep to make sure it is not a beta strep. Cathy Mccoy MD /neo/ronni Authenticated by Cathy Mccoy MD on 04/03/2008 15:36:50 Authorized physician signature on file Doc#: [id number] [facility] NAME: JORGE CHANCE [facility] MR#: [id number] [place], [place] [address] : 1945 PHYSICIAN: Cathy Mccoy MD VISIT DATE: 03/17/2008 CLINIC PROGRESS NOTE [facility] Name: JORGE CHANCE CLINIC PROGRESS NOTE Source: [facility] ISJHXDICTAPHONESYS Document Id: [id number] Electronically signed by Conversion, [facility] Engineering Director [id number] at 02/13/2017 3:23 AM CDT documented in this encounter Miscellaneous Notes Telephone Encounter - Cathy Mccoy M.D. - 03/17/2008 12:00 AM CDT [facility] [place] [address] Name: JORGE CHANCE MR#: [id number] Dictating Provider: Cathy Mccoy MD TELEPHONE NOTE DATE OF CALL: 09/24/2008 I called him with the lab results. He said his sugars are better, but they are not where he wants them yet. They are 140 in the p.m., 190 in the a.m. We are going to increase his Novolin 70/30 to 14 in the morning and 8 in the p.m. We will keep in close contact. MKW:kenny Doc#: [id number] Authenticated by Cathy Mccoy MD on 10/09/2008 21:37:17 Authorized physician signature on file Cathy Mccoy MD [facility] NAME: JORGE CHANCE [facility] MR#: [id number] [place] [address] : 1945 PHYSICIAN: Cathy Mccoy MD [facility] TELEPHONE NOTE [facility] Name: JORGE CHANCE TELEPHONE NOTE Source: [facility] ISJHXDICTAPHONESYS Document Id: [id number] Electronically signed by Conversion, [facility] Engineering Director [id number] at 02/13/2017 3:23 AM CDT documented in this encounter Plan of Treatment Not on filedocumented as of this encounter Visit Diagnoses Not on filedocumented in this encounter
--- OUTSIDE RECORDS SUMMARY | 2022-05-24 18:30 | XMS_ITS | Encounter Summary ---
:1945 Author Organization [facility] Address [address] [place] [address] Care Team Providers Name Role Phone Unavailable Primary Care Provider Unavailable Encounter Details Date Type Department Care Team Description 05/26/2008 Hospital Encounter HX NO MAPPING Keshia Daigle M.D. [address] [address] [place], [place] [address] (Wo rk) Social History Tobacco Use Types [...] or relatives? How often do you attend moravian or More than 4 times per year 06/14/2019 taoist services? Do you belong to any clubs or Yes 06/14/2019 organizations such as moravian groups, unions, fraternal or athletic groups, or [...]
--- OUTSIDE RECORDS SUMMARY | 2022-05-24 18:30 | XMS_ITS | Encounter Summary ---
:1945 Author Organization [facility] Address [address] [place] [address] Care Team Providers Name Role Phone Unavailable Primary Care Provider Unavailable Encounter Details Date Type Department Care Team Description 05/18/2007 Hospital Encounter HX [facility] [place] Cathy Rosenthal M.D. Social History [...]
--- OUTSIDE RECORDS SUMMARY | 2022-05-24 18:30 | XMS_ITS | Encounter Summary ---
:1945 Author Organization [facility] Address [address] [place] [address] Care Team Providers Name Role Phone Unavailable Primary Care Provider Unavailable Encounter Details Date Type Department Care Team Description 10/19/2006 Hospital Encounter [facility] [place] [facility] Tammy Mccoy M.D. Social History Tobacco [...]
--- OUTSIDE RECORDS SUMMARY | 2022-05-24 18:30 | XMS_ITS | Encounter Summary ---
:1945 Author Organization [facility] Address [address] [place] [address] Care Team Providers Name Role Phone Unavailable Primary Care Provider Unavailable Encounter Details Date Type Department Care Team Description 05/26/2008 Hospital Encounter HX NO MAPPING Keshia Daigle M.D. [address] [address] [place], [place] [address] (Wo rk) Social History Tobacco Use Types [...] documented as of this encounter Consult Notes Reuben Daigle M.D. - 05/26/2008 12:00 [place] [address] Name: JORGE CHANCE MR#: [id number] : [birth year] Dictating Provider: Reuben Daigle Adm/Serv Date: 05/26/08 CONSULTATION REPORT Requesting Provider: Cathy Mccoy MD Reason for consultation: 1. Age-related colorectal cancer screening. 2. Insulin dependent diabetes. Mr. Chance is a 63-year-old gentleman who was referred to our clinic for precolonoscopy evaluation/consultation by Dr. Mccoy. He had a colonoscopy 12 years ago for evaluation of abdominal complaints. No polyps were found at that time. The patient denies dysphagia, odynophagia, hematemesis, hematochezia, melena, alteration of bowel habits, abdominal pain, nausea, vomiting, change of stool caliber, diarrhea, or constipation. He has no family history of colon cancer. He is using Lantus insulin 15 units q. bedtime. He has history of coronary artery disease, and he is status post coronary stent placement. He denies chest pain, shortness of breath, and dizziness. Allergies: Penicillin and bee stings. Medications: Glipizide 10 mg p.o. b.i.d.; Avandia 2 mg p.o. daily; allopurinol 100 mg p.o. b.i.d.; aspirin 81 mg p.o. daily; metoprolol 12.5 mg p.o. b.i.d.; metformin 1000 mg p.o. b.i.d.; TriCor daily; Lantus insulin 50 units q.h.s.; Benadryl p.r.n.; Advil p.r.n.; Pepto-Bismol p.r.n. Past medical history is significant for: 1. Diabetes mellitus (on insulin). 2. Hypertension. 3. Dyslipidemia. 4. Coronary artery disease status post [place] (3 years ago). 5. Status post 4 stent placement. Past surgical history: None. Family history: Negative for gastrointestinal malignancies. 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 He is with 3 children. He admits to rare use of alcohol. He had his last drinks approximately 7 years ago. He never smoked. Review of systems: Constitutional - Good appetite, stable weight. No fever or chills. Eyes - Needs glasses. Up-to-date with diabetic retinopathy screening. ENT - No complaints. Cardiovascular - No chest pain, no palpitations. Respiratory - No shortness of breath. GI - Per history of present illness. He has 1-4 bowel movements a day. - No complaints. Musculoskeletal - Occasional sore neck. Neurologic - No complaints. Psychiatry - No complaints. Endocrine - Diabetic. Hematologic/lymphatic - No complaints. Allergy/immune - No complaints. Physical Examination: Vitals - Temperature 37. Respirations 20. Heart rate 60. Blood pressure 146/90; repeat 140/80. Weight 121.1 kg. Height 194 cm. General - Awake, alert, oriented X 3. No apparent distress. Pleasant and appropriate. Head and neck - No pallor. No jaundice. Moist mucous membranes. No lymphadenopathy. No JVD. Mallampati class II. Normal oropharynx. Respiratory - Clear to auscultation bilaterally. Cardiovascular - S1, S2 are regular without additional sounds or murmurs. Abdomen - Obese, soft, nontender, nondistended with normoactive bowel sounds and without rebound. Extremities - No edema. Neurologic - No focal deficits. Skin - No lesions. Labs - Hemoglobin in 2006 was 14.8. Most recent creatinine is 1.4. Assessment and plan: This is a 63-year-old gentleman with insulin dependent diabetes who is seen in clinic today for precolonoscopy evaluation/consultation. He had a colonoscopy 12 years ago during which no polyps were found. He has no family history of colorectal neoplasia. We will proceed with colonoscopy with the use of GoLYTELY. The patient will decrease his Lantus insulin to 8 units the day prior to the procedure. He was advised to drink plenty of fluids during the day of prep. Due to his coronary artery disease, the patient was advised to continue his aspirin throughout his prep. The patient understands the benefits and possible risks of the procedure that include but are not limited bleeding, infection, aspiration, perforation, adverse medication reaction, missed lesions, and the need for surgery. Reading material on age-related colorectal cancer screening, colonoscopy, and sedation was provided. Further recommendations will be made after the colonoscopy. Thank you for the consultation. Reuben Daigle MD Authenticated by Reuben Daigle MD on 06/01/2008 22:17:26 Authorized physician signature on file jmi cc: Cathy Mccoy MD Doc#: [id number] RE: JORGE CHANCE MR#: [id number] PAGE: 2 [facility] NAME:JORGE CHANCE [facility] CONSULTATION [facility] NAME: JORGE CHANCE [facility] MR#: [id number] [place] [address] : 1945 PHYSICIAN: Reuben Daigle MD DATE: 05/26/2008 CONSULTATION [facility] NAME: JORGE CHANCE [facility] CONSULTATION [facility] Name: JORGE CHANCE CONSULTATION REPORT Source: [facility] ISJHXDICTAPHONESYS Document Id: [id number] Electronically signed by Gricelda [facility] [employer] [id number] at 03/11/2017 10:02 PM CDT documented in this encounter Plan of Treatment Not on filedocumented as of this encounter Visit Diagnoses Not on filedocumented in this encounter
--- OUTSIDE RECORDS SUMMARY | 2022-05-24 18:30 | XMS_ITS | Encounter Summary ---
:1945 Author Organization [facility] Address [address] [place] [address] Care Team Providers Name Role Phone Unavailable Primary Care Provider Unavailable Encounter Details Date Type Department Care Team Description 01/08/2009 Hospital Encounter HX [facility] RAD[facility]Y Abhi Green M.D. [address] [place], [place] [phone] (Wo rk) Social History Tobacco [...] PM CDT documented as of this encounter Procedure Notes Joanne Mendiola M.D. - 01/08/2009 1:11 PM CDT ECHO[facility] [address] NAME: JORGE CHANCE MR#: [id number] RM#: : [id number] ADM DT: DICT: Joanne Mendiola MD ATT DR: Abhi Green MD ECHOCARDIOGRAM REPORT Report Revision History Final Joanne Mendiola MD 01/08/2009 06:09 PM Demographics Height: 193.0 cm Weight: 120.0 kg BSA: 2.49 m2 BMI: 32.22 Procedure Start Time: 01/08/2009 01:11 PM Location: [place] Referring Provider: Abhi Green Indication for Study: S/P anterior [place] Responsible District Sales Representative Joanne Mendiola [id number] Procedure Type: MK Treadmill Stress Hieu Protocol Components: 2-D, Color Flow Doppler, Doppler Limited, Exercise Stress, Stress ECG Referral Diagnosis Anterior wall left ventricular myocardial infarction. Hemodynamics Heart Rate: 65 BPM Blood Pressure: 132 / 82 mmHg ECG: Media Details Variety Saw Operator #clinical clips=54 Tape #[id number] / 1:46:32 - 1:52:52 Final Impressions 1. Exercise echocardiogram mildly positive for myocardial ischemia. 2. The patient's exercise capacity was good. 3. Limited heart rate response could reduce the sensitivity of the test. Wall Motion Findings STRESS TEST: The patient exercised on a Hieu protocol for 9:04 min:sec achieving 116 % FAC. The patient achieved 10.1 [place] [address]. Blood pressure at rest 132 mmHg/82 mmHg. Blood pressure with exercise 184 mmHg/80 mmHg. The test was terminated due to leg distress. No chest pain was described. With stress, the ECG demonstrated <1mm beat to beat variability ST depression. Accuracy of interpretation is reduced by marked baseline artifact, however. REST IMAGES: Attempts were made to optimize the echocardiographic images and two or more left ventricular segments were not visualized adequately to evaluate cardiac structure. Definity aided in interpretation of suboptimal images. 2 ml of Definity in diluted solution was administered. LEFT VENTRICLE: Normal left ventricular chamber size. Normal left ventricular systolic function. Calculated left ventricular ejection fraction; 61 %. Regional wall motion abnormalities were present (see wall motion graphics). Normal left ventricular wall thickness. Indeterminate left ventricular diastolic function. RIGHT VENTRICLE: Mild right ventricular enlargement. Normal right ventricular function. Estimated right ventricular systolic pressure; 28 mmHg. ATRIA: Normal left atrial size. Left atrial volume index 25 cc/m2. Mild right atrial enlargement. CARDIAC VALVES: Aortic valve sclerosis without stenosis or regurgitation. Normal mitral valve. Trivial mitral valve regurgitation. Normal pulmonary valve. Normal tricuspid valve. Trivial tricuspid valve regurgitation. OTHER ECHO FINDINGS: No intracardiac mass or thrombus, but the left atrial appendage cannot be visualized adequately with transthoracic echo to exclude thrombus in this location. No pericardial effusion. Normal inferior vena cava size with normal inspiratory collapse (>50%). STRESS IMAGES: Ejection fraction response from 60 % at rest to 70 % at peak stress. Left ventricular end-systolic volume decreased with stress. Worsening of pre-exercise regional wall motion abnormalities. However this is mild and in the distribution of an anatomic hinge-point at the site of insertion of the right ventricular wall, reducing the specificity of the findings for ischemia. Measurements Stress Stages Duration ( min:sec ) Speed ( mph ) Grade ( % ) HR ( BPM ) Sys. BP ( mmHg ) Chanel. BP ( mmHg ) RPP Baseline 65 592 29 2131 Stage 1 3:00 1.7 10.0 94 134 78 52735 Stage 2 3:00 2.5 12.0 100 164 80 98629 Stage 3 3:04 3.4 14.0 127 184 80 70955 Stress Information Value Normal STRESS PARAMETERS: Duration of Stress Test ( min:sec ) 9:04 METS 10.1 FAC (Camejo predicted) ( % ) 101 FAC (Hieu predicted) ( % ) 116 Target Heart Rate (85% of Age Adj Max) ( BPM ) 133 Image acquisition time ( min:sec ) 0:45 Image Acquisition Completed at HR of ( BPM ) 107 Ventricular Septum Value Normal 2D: Thickness (d) ( mm ) 12 11 - 14 Posterior Wall Value Normal 2D: Thickness (d) ( mm ) 12 10 - 14 Left Ventricle Value Normal 2D: Dimension (d) ( mm ) 53 44 - 58 Dimension (s) ( mm ) 35 26 - 38 EF* ( % ) 61 LV Mass ( g ) 256 LV Mass index ( g/m2 ) 103 Wall Motion Score Index 1.06 * 1.0 Left Atrium Value Normal 2D: 4 chamber area ( cm2 ) 21.40 Length 4-Chamber View ( mm ) 58 2 chamber area ( cm2 ) 19.40 Length 2-Chamber View ( mm ) 53 Averaged Length ( mm ) 56 Volume By A-L Method (4C-2C) ( cc ) 63 Volume Index By A-L (4C-2C) ( cc/m2 ) 25 16 - 28 Thoracic Aorta Value Normal ASCENDING 2D: Mid ascending aorta diameter ( mm ) 35 Mitral Valve Diastolic Value Normal HEMODYNAMICS (PWD): E velocity ( m/sec ) 0.7 0.4 - 0.9 A velocity ( m/sec ) 0.8 0.4 - 0.8 E-A ratio 0.87 0.6 - 1.4 Deceleration time ( msec ) avg 279 132 - 296 Medial annulus e' velocity ( m/sec ) 0.04 E/e' (medial) 17.5 Tricuspid Valve Systolic Value Normal HEMODYNAMICS: Regurgitant velocity ( m/sec ) 2.40 Regurgitant CARMINA ( mmHg ) 23 Value Normal RIGHT HEART PRESSURE: RA pressure (estimated) ( mmHg ) 5 RV systolic pressure ( mmHg ) 28 Value Normal MEDICATIONS Definity (Diluted Solution) ( ml ) 2 Serial Studies [facility] 01/08/09 BSA ( m2 ) 2.49 BMI ( kg/m2 ) 32.22 Heart Rate ( BPM ) 65 BP Systolic ( mmHg ) 132 BP Diastolic ( mmHg ) 82 IVSd (2D) ( mm ) 12 LVPWd (2D) ( mm ) 12 LVIDd (2D) ( mm ) 53 EF % (2D) ( % ) 61 LV Mass Index (2D) ( g/m2 ) 103 LA Vol Index (2c-4c avg length) ( cc/m2 ) 25 E/A Ratio 0.87 MV DT ( msec ) avg 279 E/e' Ratio 17.5 RV Pressure ( mmHg ) 28 Roles Role Name Electronically Authenticated By Date/Time District Sales Representative Joanne Mendiola MD, Laura A MD 01/08/2009 06:09 PM Stress Twitchell Operator Cristela Fishman [facility] NAME: JORGE CHANCE Source: [facility] ISJHXDICTAPHONESYS Document Id: [id number] documented in this encounter Plan of Treatment Not on filedocumented as of this encounter Procedures Procedure Name Priority Date/Time Associated Diagnosis Comme nts ECHO STRESS Routine 01/08/2009 2:00 PM Results f or this CDT procedure are i n the results section . documented in this encounter Results Echo Stress (01/08/2009 2:00 PM CDT) Anatomical Region Laterality Modality Echocardiography Specimen (Source) Anatomical Collection Method Collection Time Re ceived Time Location / / Volume Laterality 01/08/2009 2:00 PM CDT Narrative 01/08/2009 2:00 PM CDT Originally Signed By Joanne Mendiola M.D. -UNKNOWN, PERSONNEL Reason for exam: S/P ANTERIOR [place] Report Revision History Final Joanne Mendiola MD 009 06:09 PM Demographics Height: 193.0 cm ??Weight: 120.0 kg ??BS A: 2.49 m2 ??BMI: 32.22 Procedure Start Time: 01/08/2009 01:11 P M ??Location: [place] Referring Provider: Abhi Green ??Indication for Study: S/P anterior [place] Responsible District Sales Representative Joanne Mendiola [id number] Procedure Type: MK Treadmill Stress Hieu Protocol Components: 2-D, Color Flow Doppler, Dop pler Limited, Exercise Stress, Stress ECG Referral Diagnosis Anterior wall left ventricular myocardia l infarction. Hemodynamics Heart Rate: 65 BPM Blood Pressure: 132 / 82 mmHg ECG: Media Details Variety Saw Operator #clinical clips=54 Tape #[id number] / 1:46:32 - 1:52:52 Final Impressions ? 1. Exercise echocardiogram mildly positive for myocardial ischemia. ? 2. The patient's exercise capacit y was good. ? 3. Limited heart rate response co uld reduce the sensitivity of the test. Wall Motion Findings STRESS TEST: The patient exercised on a Hieu protocol for 9:04 min:sec achieving 116 % FAC. The patient achieved 10.1 [place] [address]. Blood pressure at rest 132 mmHg/82 mmHg. Blood pressure with exercise 184 mmHg/80 mmHg. The test was terminated due to leg distress. No chest pain was described. With stress, the ECG demonstrated <1mm beat t o beat variability ST depression. Accuracy of interpretation i s reduced by marked baseline artifact, however. REST IMAGES: Attempts were made to optimize the echocardiographic images an d two or more left ventricular segments were not visualized adequately to evaluate cardiac structure. Definity aided in int erpretation of suboptimal images. 2 ml of Definity in diluted solu tion was administered. LEFT VENTRICLE: Normal left ventricular chamb er size. Normal left ventricular systolic function. Calculate d left ventricular ejection fraction; 61 %. Regional wall motion abn ormalities were present (see wall motion graphics). Normal left ventricular wall thickness. Indeterminate left ventricular diastolic function. RIGHT VENTRICLE: Mild right ventricular enlargement. Norm al right ventricular function. Estimated right ventricular sy stolic pressure; 28 mmHg. ATRIA: Normal left atrial size. Left atr ial volume index 25 cc/m2. Mild right atrial enlargement. CARDIAC V BUTLER: Aortic valve sclerosis without stenosis or regurgitat ion. Normal mitral valve. Trivial mitral valve regurgitation. Norm al pulmonary valve. Normal tricuspid valve. Trivial tricuspid valve regurgitation. OTHER ECHO FINDINGS: No intracardiac mass or thromb us, but the left atrial appendage cannot be visualized adequatel y with transthoracic echo to exclude thrombus in this location. No pericardial effusion. Normal inferior vena cava size with norm al inspiratory collapse (>50%). STRESS IMAGES: Ejection fraction response from 60 % at rest to 70 % at peak stress. Left ventricular end-systolic volume decreased with stress. Worsening of pre- exercise regional wall motion abnormalities. However this is mi ld and in the distribution of an anatomic hinge-point at the site of insertion of the right ventricular wall, reducing the specifici ty of the findings for ischemia. Measurements Stress Stages ??Duration ( min:sec ) Speed ( mph ) Gr petros ( % ) HR ( BPM ) Sys. BP ( mmHg ) Chanel. BP ( mmHg ) RPP Baseline ? 65 018 79 5885 Stage 1 3:00 1.7 10.0 94 134 78 07442 Stage 2 3:00 2.5 12.0 100 164 80 03871 Stage 3 3:04 3.4 14.0 127 184 80 82269 Stress Information ??Value Normal STRESS PARAMETERS: ? Duration of Stress Test ( min:sec ) 9:04 ? METS 10.1 ? FAC (Camejo predicted) ( % ) 101 ? FAC (Hieu predicted) ( % ) 116 ? Target Heart Rate (85% of Age Adj Max) ( BPM ) 133 ? Image acquisition time ( min:sec ) 0:45 ? Image Acquisition Completed at HR of ( BPM ) 107 Ventricular Septum ??Value Normal 2D: ? Thickness (d) ( mm ) 12 ?? 11 - 1 4 Posterior Wall ??Value Normal 2D: ? Thickness (d) ( mm ) 12 ?? 10 - 1 4 Left Ventricle ??Value Normal 2D: ? Dimension (d) ( mm ) 53 ?? 44 - 5 8 ? Dimension (s) ( mm ) 35 ?? 26 - 3 8 ? EF* ( % ) 61 ? LV Mass ( g ) 256 ? LV Mass index ( g/m2 ) 103 ? Wall Motion Score Index 1.06 * 1. 0 Left Atrium ??Value Normal 2D: ? 4 chamber area ( cm2 ) 21.40 ? Length 4-Chamber View ( mm ) 58 ? 2 chamber area ( cm2 ) 19.40 ? Length 2-Chamber View ( mm ) 53 ? Averaged Length ( mm ) 56 ? Volume By A-L Method (4C-2C) ( cc ) 63 ? Volume Index By A-L (4C-2C) ( cc/ m2 ) 25 ?? 16 - 28 Thoracic Aorta ??Value Normal ASCENDING 2D: ? Mid ascending aorta diameter ( mm ) 35 Mitral Valve Diastolic ??Value Normal HEMODYNAMICS (PWD): ? E velocity ( m/sec ) 0.7 ?? 0.4 - 0.9 ? A velocity ( m/sec ) 0.8 ?? 0.4 - 0.8 ? E-A ratio 0.87 ?? 0.6 - 1.4 ? Deceleration time ( msec ) avg 27 9 ?? 132 - 296 ? Medial annulus e' velocity ( m/se c ) 0.04 ? E/e' (medial) 17.5 Tricuspid Valve Systolic ??Value Normal HEMODYNAMICS: ? Regurgitant velocity ( m/sec ) 2. 40 ? Regurgitant CARMINA ( mmHg ) 23 ?? Value Normal RIGHT HEART PRESSURE: ? RA pressure (estimated) ( mmHg ) 5 ? RV systolic pressure ( mmHg ) 28 ??Value Normal MEDICATIONS ? Definity (Diluted Solution) ( ml ) 2 Serial Studies General ?? 01/08/09 BSA ( m2 ) 2.49 BMI ( kg/m2 ) 32.22 Heart Rate ( BPM ) 65 BP Systolic ( mmHg ) 132 BP Diastolic ( mmHg ) 82 IVSd (2D) ( mm ) 12 LVPWd (2D) ( mm ) 12 LVIDd (2D) ( mm ) 53 EF % (2D) ( % ) 61 LV Mass Index (2D) ( g/m2 ) 103 LA Vol Index (2c-4c avg length) ( cc/m2 ) 25 E/A Ratio 0.87 MV DT ( msec ) avg 279 E/e' Ratio 17.5 RV Pressure ( mmHg ) 28 Roles ??Role Name Electronically Authenticate d By Date/Time ??District Sales Representative ??Joanne Mendiola MD ??Joanne Mendiola MD ?? 01/08/2009 06:09 PM ??Stress Twitchell Operator ??Cristela Fishman [facility] Procedure Note ProviderAnder M.D. - 02/16/2017F ormatting of this note might be different from the original. Originally Signed By Joanne das M.D. -UNKNOWN, PERSONNEL Reason for exam: S/P ANTERIOR [place] Report Revision History Final Joanne Mendiola MD 009 06:09 PM Demographics Height: 193.0 cm Weight: 120.0 kg BSA: 2 .49 m2 BMI: 32.22 Procedure Start Time: 01/08/2009 01:11 P M Location: [place] Referring Provider: Abhi Green Indication for Study: S/P anterior [place] Responsible District Sales Representative Joanne Mendiola [id number] Procedure Type: MK Treadmill Stress Hieu Protocol Components: 2-D, Color Flow Doppler, Dop pler Limited, Exercise Stress, Stress ECG Referral Diagnosis Anterior wall left ventricular myocardia l infarction. Hemodynamics Heart Rate: 65 BPM Blood Pressure: 132 / 82 mmHg ECG: Media Details Variety Saw Operator #clinical clips=54 Tape #[id number] / 1:46:32 - 1:52:52 Final Impressions 1. Exercise echocardiogram mildly posit maurilio for myocardial ischemia. 2. The patient's exercise capacity was good. 3. Limited heart rate response could re duce the sensitivity of the test. Wall Motion Findings STRESS TEST: The patient exercised on a Hieu protocol for 9:04 min:sec achieving 116 % FAC. The patient achieved 10.1 [place] [address]. Blood pressure at rest 132 mmHg/82 mmHg. Blood pressure with exercise 184 mmHg/80 mmHg. The test was terminated due to leg distress. No chest pain was described. With stress, the ECG demonstrated <1mm beat t o beat variability ST depression. Accuracy of interpretation i s reduced by marked baseline artifact, however. REST IMAGES: Attempts were made to optimize the echocardiographic images an d two or more left ventricular segments were not visualized adequately to evaluate cardiac structure. Definity aided in int erpretation of suboptimal images. 2 ml of Definity in diluted solu tion was administered. LEFT VENTRICLE: Normal left ventricular chamb er size. Normal left ventricular systolic function. Calculate d left ventricular ejection fraction; 61 %. Regional wall motion abn ormalities were present (see wall motion graphics). Normal left ventricular wall thickness. Indeterminate left ventricular diastolic function. RIGHT VENTRICLE: Mild right ventricular enlargement. Norm al right ventricular function. Estimated right ventricular sy stolic pressure; 28 mmHg. ATRIA: Normal left atrial size. Left atr ial volume index 25 cc/m2. Mild right atrial enlargement. CARDIAC V BUTLER: Aortic valve sclerosis without stenosis or regurgitat ion. Normal mitral valve. Trivial mitral valve regurgitation. Norm al pulmonary valve. Normal tricuspid valve. Trivial tricuspid valve regurgitation. OTHER ECHO FINDINGS: No intracardiac mass or thromb us, but the left atrial appendage cannot be visualized adequatel y with transthoracic echo to exclude thrombus in this location. No pericardial effusion. Normal inferior vena cava size with norm al inspiratory collapse (>50%). STRESS IMAGES: Ejection fraction response from 60 % at rest to 70 % at peak stress. Left ventricular end-systolic volume decreased with stress. Worsening of pre- exercise regional wall motion abnormalities. However this is mi ld and in the distribution of an anatomic hinge-point at the site of insertion of the right ventricular wall, reducing the specifici ty of the findings for ischemia. Measurements Stress Stages Duration ( min:sec ) Speed ( mph ) Grad e ( % ) HR ( BPM ) Sys. BP ( mmHg ) Chanel. BP ( mmHg ) RPP Baseline 65 894 12 2155 Stage 1 3:00 1.7 10.0 94 134 78 83440 Stage 2 3:00 2.5 12.0 100 164 80 70996 Stage 3 3:04 3.4 14.0 127 184 80 65927 Stress Information Value Normal STRESS PARAMETERS: Duration of Stress Test ( min:sec ) 9:0 4 METS 10.1 FAC (Camejo predicted) ( % ) 101 FAC (Hieu predicted) ( % ) 116 Target Heart Rate (85% of Age Adj Max) ( BPM ) 133 Image acquisition time ( min:sec ) 0:45 Image Acquisition Completed at HR of ( BPM ) 107 Ventricular Septum Value Normal 2D: Thickness (d) ( mm ) 12 11 - 14 Posterior Wall Value Normal 2D: Thickness (d) ( mm ) 12 10 - 14 Left Ventricle Value Normal 2D: Dimension (d) ( mm ) 53 44 - 58 Dimension (s) ( mm ) 35 26 - 38 EF* ( % ) 61 LV Mass ( g ) 256 LV Mass index ( g/m2 ) 103 Wall Motion Score Index 1.06 * 1.0 Left Atrium Value Normal 2D: 4 chamber area ( cm2 ) 21.40 Length 4-Chamber View ( mm ) 58 2 chamber area ( cm2 ) 19.40 Length 2-Chamber View ( mm ) 53 Averaged Length ( mm ) 56 Volume By A-L Method (4C-2C) ( cc ) 63 Volume Index By A-L (4C-2C) ( cc/m2 ) 2 5 16 - 28 Thoracic Aorta Value Normal ASCENDING 2D: Mid ascending aorta diameter ( mm ) 35 Mitral Valve Diastolic Value Normal HEMODYNAMICS (PWD): E velocity ( m/sec ) 0.7 0.4 - 0.9 A velocity ( m/sec ) 0.8 0.4 - 0.8 E-A ratio 0.87 0.6 - 1.4 Deceleration time ( msec ) avg 279 132 - 296 Medial annulus e' velocity ( m/sec ) 0. 04 E/e' (medial) 17.5 Tricuspid Valve Systolic Value Normal HEMODYNAMICS: Regurgitant velocity ( m/sec ) 2.40 Regurgitant CARMINA ( mmHg ) 23 Value Normal RIGHT HEART PRESSURE: RA pressure (estimated) ( mmHg ) 5 RV systolic pressure ( mmHg ) 28 Value Normal MEDICATIONS Definity (Diluted Solution) ( ml ) 2 Serial Studies General 01/08/09 BSA ( m2 ) 2.49 BMI ( kg/m2 ) 32.22 Heart Rate ( BPM ) 65 BP Systolic ( mmHg ) 132 BP Diastolic ( mmHg ) 82 IVSd (2D) ( mm ) 12 LVPWd (2D) ( mm ) 12 LVIDd (2D) ( mm ) 53 EF % (2D) ( % ) 61 LV Mass Index (2D) ( g/m2 ) 103 LA Vol Index (2c-4c avg length) ( cc/m2 ) 25 E/A Ratio 0.87 MV DT ( msec ) avg 279 E/e' Ratio 17.5 RV Pressure ( mmHg ) 28 Roles Role Name Electronically Authenticated By Date/Time District Sales Representative Joanne Mendiola MD, Laura A MD 01/08/2009 06:09 PM Stress Twitchell Operator Cristela Fishman [facility] Historical Provider CV ECHO PROCEDURES documented in this encounter Visit Diagnoses Not on filedocumented in this encounter
--- OUTSIDE RECORDS SUMMARY | 2022-05-24 18:30 | XMS_ITS | Encounter Summary ---
:1945 Author Organization [facility] Address [address] [place] [address] Care Team Providers Name Role Phone Unavailable Primary Care Provider Unavailable Encounter Details Date Type Department Care Team Description 10/16/2006 Hospital Encounter HX [facility] Provider, Hist orical Social History Tobacco Use Types Packs/Day Years [...]
--- OUTSIDE RECORDS SUMMARY | 2022-05-24 18:30 | XMS_ITS | Encounter Summary ---
:1945 Author Organization [facility] Address [address] [place] [address] Care Team Providers Name Role Phone Unavailable Primary Care Provider Unavailable Encounter Details Date Type Department Care Team Description 03/08/2010 Hospital Encounter HX [facility] Shasta Patel M.D. Social History Tobacco [...] Date/Time Associated Diagnosis Comme nts CT ABDOMEN PELVIS Routine 03/08/2010 9:35 AM Resu lts for this WITH IV CONTRAST CDT procedure a re in the results section. documented in this encounter Results CT Abdomen Pelvis with IV Contrast (03/08/2010 9:35 AM CDT) Anatomical Region Laterality Modality Abdomen, Pelvis N/A Computed Tomography Specimen (Source) Anatomical Collection Method Collection Time Re ceived Time Location / / Volume Laterality 03/08/2010 9:35 AM CDT Addenda Addendum by Provider, Junior Worthington o n 03/08/2010 9:35 AM CDT RAD^^^MA CT ABDOMEN PELVIS W CONTRAST 03/08/2010 09:35:00 CT ABDOMEN PELVIS W CONTRAST Addendum by Provider, Junior Worthington n 03/08/2010 9:35 AM CDT RAD^^^MA CT ABDOMEN PELVIS W CONTRAST 03/08/2010 09:35:00 CT ABDOMEN PELVIS W CONTRAST Addendum by Provider, Junior Worthington o n 03/08/2010 9:32 AM CDT RAD^^^MA CT ABDOMEN PELVIS W CONTRAST 03/08/2010 09:32:00 Narrative 03/08/2010 10:19 AM CDT PROCEDURE: Following the oral administra tion of contrast and during the rapid infusion of intravenous contra st a series of helical images in the axial plane were obtained through the abdomen and pelvis. ?? FINDINGS: The lower lung oquendo are hakan r. There is fatty infiltration of the liver. The gallbladder is present and no calcified gallstones are seen. The spleen and pancreas are no rmal size, position, contour, CT density and enhancement pattern. The adrenal glands are normal. The kidneys demonstrate a symmetric nephrogr am and no hydronephrosis is seen. The stomach and small bowel are no rmal. The retroperitoneal structures enhance normally. No retroper itoneal adenopathy is seen. There are multiple diverticula of the re ctosigmoid colon. The appendix is normal. No pelvic mass is seen. The p rostate is not enlarged. The anterior abdominal wall is intact. There are advanced degenerative changes in the lower lumbar spine. ?? CONCLUSION: Fatty infiltration of the li mario. ?? Sigmoid diverticulosis but no evidence o f diverticulitis. Procedure Note Som Fletcher M.D. / ProviderGracie M.D. - 02/02/2017 PROCEDURE: Following the oral administra tion of contrast and during the rapid infusion of intravenous contra st a series of helical images in the axial plane were obtained through the abdomen and pelvis. FINDINGS: The lower lung oquendo are hakan r. There is fatty infiltration of the liver. The gallbladder is present and no calcified gallstones are seen. The spleen and pancreas are no rmal size, position, contour, CT density and enhancement pattern. The adrenal glands are normal. The kidneys demonstrate a symmetric nephrogr am and no hydronephrosis is seen. The stomach and small bowel are no rmal. The retroperitoneal structures enhance normally. No retroper itoneal adenopathy is seen. There are multiple diverticula of the re ctosigmoid colon. The appendix is normal. No pelvic mass is seen. The p rostate is not enlarged. The anterior abdominal wall is intact. There are advanced degenerative changes in the lower lumbar spine. CONCLUSION: Fatty infiltration of the li mario. Sigmoid diverticulosis but no evidence o f diverticulitis. Historical Provider IMG CT PROCEDURES documented in this encounter Visit Diagnoses Not on filedocumented in this encounter
--- OUTSIDE RECORDS SUMMARY | 2022-05-24 18:30 | XMS_ITS | Encounter Summary ---
:1945 Author Organization [facility] Address [address] [place] [address] Care Team Providers Name Role Phone Unavailable Primary Care Provider Unavailable Encounter Details Date Type Department Care Team Description 10/17/2006 Hospital Encounter HX [facility] Romulo Aguilar M.D. Social History Tobacco Use Types Packs/Day [...]
--- OUTSIDE RECORDS SUMMARY | 2022-05-24 18:30 | XMS_ITS | Encounter Summary ---
:1945 Author Organization [facility] Address [address] [place] [address] Care Team Providers Name Role Phone Unavailable Primary Care Provider Unavailable Encounter Details Date Type Department Care Team Description 08/12/2009 Hospital Encounter HX [facility] [place] Cathy Rosenthal M.D. Social History Tobacco Use [...] More than 4 times per year 06/14/2019 zoroastrianism services? Do you belong to any clubs [...] encounter Progress Notes Cathy Mccoy M.D. - 08/12/2009 8:56 AM CST CN DATE OF SERVICE: 08/12/2009 REASON FOR VISIT This is a 54-year-old male here for diabetic check. HISTORY OF PRESENT ILLNESS His sugars have been high for the past month. He increased his insulin but he is still running high.He was taking 30 of Lantus and now he is taking 35 and his sugars are still 200-220. After exercise they are like 170. PAST, FAMILY, AND SOCIAL HISTORY Past medical history: Diabetes, gout, hypertension, hyperlipidemia, myocardial infarction with stentplacement x4, out of hospital arrest in 10/17. He had an allergic reaction to I believe Lipitor which hospitalized him 11/14. He had a heel spur removed. Social history: Does not smoke or drink alcohol. He lives with his , retired. Family history: Noncontributory. MEDICATIONS 1. Metformin 100 mg twice daily. 2. Glipizide 10 mg two times a day. 3. Metoprolol 25 mg, one half tablet two times a day. 4. Ramipril 5 mg daily. 5. Gemfibrozil 600 mg twice daily. 6. Lamisil topical p.r.n. 7. Tears Naturale p.r.n. 8. Aspirin 81 mg daily. 9. Allopurinol 100 mg twice daily. 10. Nitroglycerin p.r.n. 11. Diphenhydramine p.r.n. 12. Ibuprofen p.r.n. ALLERGIES PENICILLIN, BEE STINGS, LIPITOR, BAND-AIDS, CLINDAMYCIN. REVIEW OF SYSTEMS ENT: No ears, nose, and throat problems. Evidently the back of his eye is starting to have a tear but he is following with ophthalmology for that. Chest: No shortness of breath or cough. Cardiovascular: No chest pain or palpitations. GI: Every 3 weeks he has constipation and then diarrhea. He has had a colonoscopy and that is improving. : He has erectile dysfunction and wondered if he could get something for that. We discussed that he could not use nitrates if he was using Viagra or one of those things in that family, so he understood that. Musculoskeletal: Yesterday he had some pain in his rightshoulder that lasted about 5 minutes, but he woke up when he rolled on that arm and felt like the shoulder muscle had cramped. Neuro: No numbness, tingling or seizures. Psych: He is a little bit depressed with the bills come. EXAMINATION Blood pressure 122/78, pulse 60, respirations 12, temperature 35.9, weight 117.5 kilograms. Neck is supple without bruits. Chest is clear to auscultation bilaterally. Cardiovascular: Regular rate and rhythm. No murmur. Pulses are good. Sensation is normal. IMPRESSION/REPORT/PLAN 1. Diabetes. 2. Erectile dysfunction. PLAN Will check a hemoglobin A1c, Lipid-II, AST, microalbumin, BUN, creatinine, potassium and PSA. We aregoing to start Januvia 25 mg. Continue his glipizide and metformin. At home use Lantus for the time being and see if he can be controlled with just the Januvia and the other oral medications. Also prescribed Viagra 50 mg to see if that helps his erectile dysfunction. SILVIANO:jyothi Doc#: [id number] Electronically Signed By:CATHY MCCOY MD On 01/01/2010 08:39 AM Source: [facility] ISJDICTAPHONESYS Document Id: [id number] documented in this encounter Miscellaneous Notes Miscellaneous - Cathy Mccoy M.D. - 08/12/2009 10:16 AM CST Ambulatory Depart Summary [address] [address] Visit Information Name: AVE CHANCE Current Date: 08/12/2009 10:16:25 Primary Care Provider: CATHY MCCOY MD OFELIA [...] a day as needed for erectile dysfunction sitagliptin (Januvia 25 mg oral tablet) 25 mg Oral once a day ramipril (ramipril) 5 mg Oral once a day hypertension / needs diabetic check glipiZIDE (glipiZIDE 10 mg oral tablet) 10 mg Oral two times a day diabetes/glucose / needs cecile't metoprolol (metoprolol 25 mg oral tablet) 12.5 mg Oral two times a day hypertension gemfibrozil (gemfibrozil 600 mg oral tablet) 600 mg Oral two times a day ocular lubricant (Tears Naturale) 1 drop(s) Eyes(Both) as needed terbinafine topical (Lamisil Topical) 1 cecile Topical once a day rash nitroglycerin (nitroglycerin 0.4 mg sublingual tablet) 1 tab(s) Sublingual as needed chest pain diphenhydrAMINE (Benadryl) Oral as needed bismuth subsalicylate (Pepto-Bismol) Oral as needed upset stomach ibuprofen (ibuprofen) Oral as needed metformin (metformin 1000 mg oral tablet) 1 tab(s) Oral two times a day with meals diabetes aspirin (aspirin 81 mg oral tablet) 81 mg Oral once a day preventativae allopurinol (allopurinol 100 mg oral tablet) 1 tab(s) Oral two times a day gout Additional Information: Yes - Medication list reviewed, patient verbalizes understanding of current medications, and list given to patient. Source: [facility] POWERCHART Document Id: [id number] Miscellaneous - Shirin Keen LKamilaPKamilaN. - 08/12/2009 9:10 AM CST Adult Tar Heat Exchanger Cleaner Intake/History Adult Tar Heat Exchanger Cleaner Intake/History Entered On: 08/12/2009 9:13 CONCHE OPERATOR Performed On: 08/12/2009 9:10 CONCHE OPERATOR by SHIRIN KEEN LPN Intake Chief Complaint: diabetic check, blood sugars have been high for past month. Increased insulin, but still running high Temperature Core: 35.9DegC(Converted to: 96.6DegF) (LOW) Peripheral Pulse Rate: 60bpm Respiratory Rate: 12br/min (LOW) Systolic Blood Pressure: 122mmHg Diastolic Blood Pressure: 78mmHg NIBP Mean: 93mmHg BP Location: Left upper extremity Actual Weight: 117.500kg(Converted to: 259.043lb) Dosing Weight Clinic: 117.50kg SHIRIN KEEN MYNOR HARRIS - 08/12/2009 9:10 CONCHE OPERATOR General Info Information Given By: Patient Preferred Communication Mode: Verbal Languages: Kazakh SHIRIN KEEN KIMBERLY - 08/12/2009 9:10 CONCHE OPERATOR Subjective Pain Symptoms: No SHIRIN KEEN MYNOR KIMBERLY - 08/12/2009 9:10 CONCHE OPERATOR Dependent Habits Tobacco Use/Currently Using: No SHIRIN KEEN KIMBERLY - 08/12/2009 9:10 CONCHE OPERATOR Alcohol Use Grid Alcohol Use: None SHIRIN KEEN KIMBERLY - 08/12/2009 9:10 CONCHE OPERATOR Allergies Allergies (Active) Bee Stings Estimated Onset Date: Unspecified ; Created By: AMANDEEP BURRELL LPN; Reaction Status: Active ; Category: Environment ; Substance: Bee Stings ; Updated By: AMANDEEP BURRELL LPN; ReviewedDate: 08/12/2009 9:06 CONCHE OPERATOR clindamycin Estimated Onset Date: Unspecified ; Created By: AMANDEEP BURRELL LPN; Reaction Status:Active ; Category: Drug ; Substance: clindamycin ; Updated By: AMANDEEP BURRELL LPN; Reviewed Date: 08/12/2009 9:06 CONCHE OPERATOR Lipitor Estimated Onset Date: Unspecified ; Reactions: Chest Pain:Pressure/Tightness ; Created By: AMANDEEP BURRELL LPN; Reaction Status: Active ; Category: Drug ; Substance: Lipitor ; Type: Allergy ; Updated By: AMANDEEP BURRELL LPN; Reviewed Date: 08/12/2009 9:06 CONCHE OPERATOR penicillin Estimated Onset Date: Unspecified ; Reactions: Hives, SOB - Shortness of breath ; CreatedBy: AMANDEEP BURRELL LPN; Reaction Status: Active ; Category: Drug ; Substance: penicillin ; Type:Allergy ; Updated By: AMANDEEP BURRELL LPN; Reviewed Date: 08/12/2009 9:06 CONCHE OPERATOR [facility] Document Id: [id number] CONCHE OPERATOR!23 HE OPERATOR documented in this encounter Plan of Treatment Not on filedocumented as of this encounter Visit Diagnoses Not on filedocumented in this encounter
--- OUTSIDE RECORDS SUMMARY | 2022-05-24 18:30 | XMS_ITS | Encounter Summary ---
:1945 Author Organization [facility] Address [address] [place] [address] Care Team Providers Name Role Phone Unavailable Primary Care Provider Unavailable Encounter Details Date Type Department Care Team Description 11/08/2006 Hospital Encounter HX [facility] Claros, Brenda.P.MKamila [address] [place] [address] [phone] (Wo rk) Social History Tobacco Use Types [...]
--- OUTSIDE RECORDS SUMMARY | 2022-05-24 18:30 | XMS_ITS | Encounter Summary ---
:1945 Author Organization [facility] Address [address] [place] [address] Care Team Providers Name Role Phone Unavailable Primary Care Provider Unavailable Encounter Details Date Type Department Care Team Description 01/24/2007 Hospital Encounter [facility] [place] Cathy Rosenthal M.D. Social [...] encounter Progress Notes Cathy Mccoy M.D. - 01/24/2007 12:00 [place] [address] Name: JORGE CHANCE MR#: [id number] : [birth year] Dictating Provider: Cathy Mccoy MD Serv Date: 01/24/07 CLINIC NOTE S: He is a 61-year-old male here for diabetic check. PAST MEDICAL HISTORY: Diabetes, gout, hypertension. He had an out of hospital arrest when he had a heart attack. He had stents time 4 placed at that time. He also had a SEVERE ALLERGIC REACTION TO LIPITOR. MEDICATIONS: Glipizide 10 mg b.i.d.; Avandia 2 mg daily; lisinopril 10 mg one-half tablet daily; allopurinol 100 mg daily; aspirin 81 mg daily; metoprolol 12.5 mg b.i.d.; metformin 1,000 mg b.i.d.; Pravastatin 2 mg daily. All in all, he is feeling pretty good. He checked his blood glucose 3 times yesterday. He said he got up at midnight and ate a can of beans. In the morning his blood sugar was 180, but at 11 o'clock it was 120, and at 5 o'clock it was 118. He said when he eats a proper diet, his glucoses are 120. If he eats too much carbs, he gets about 140. He denies chest pain, shortness of breath, cough, but he did have an upper respiratory infection 3 weeks ago, and every now and again he brings up a little bit of phlegm from that. He occasionally gets allergic symptoms such as swollen eyes, but he has not gotten any this year. Gastrointestinal - No nausea, vomiting, diarrhea, constipation. Genitourinary - No dysuria, hematuria, or nocturia. Musculoskeletal - Negative. O: Blood pressure 102/70. Weight 118.1. Temperature 34.9. Pulse 64. Respirations 20. No thyromegaly or bruits. Chest - Clear to auscultation bilaterally. Cardiovascular - Regular rate and rhythm, no murmur. Feet - With normal sensation. Pulses - He showed me where he had a heel spur removed recently. A: 1. DIABETES. 2. HISTORY OF GOUT. 3. HISTORY OF HYPERLIPIDEMIA. P: Hemoglobin A1c, Lipid-II, AST, microalbumin, and a uric acid because of his gout. He does not need refills at this time. We will contact him with the results. Cathy Mccoy MD /kenny Authenticated by Cathy Mccoy MD on 01/28/2007 19:12:37 Authorized physician signature on file [facility] NAME: JORGE CHANCE [facility] MR#: [id number] [place] [address] : 1945 PHYSICIAN: Cathy Mccoy MD VISIT DATE: 01/24/2007 CLINIC PROGRESS NOTE [facility] Name: JORGE CHANCE CLINIC PROGRESS NOTE Source: [facility] ISJHXDICTAPHONESYS Document Id: [id number] Electronically signed by Conversion, [facility] Property Management Assistant [id number] at 02/13/2017 6:12 AM CDT documented in this encounter Miscellaneous Notes Telephone Encounter - Cathy Mccoy M.D. - 01/24/2007 12:00 AM CDT [facility] [address] Name: JORGE CHANCE MR#: [id number] Dictating Provider: Cathy Mccoy MD TELEPHONE NOTE DATE OF CALL: 04/17/2007 Told him his lab results. His A1c was 8. Glucose was 179. We are going to increase his Lantus to 15 units. Also, he has an elevated liver function with an AST of 69. We are going to hold his pravastatin for a month and recheck his Lipid-II and AST at that time. He is supposed to increase his fluid because his BUN is up and his creatinine is also up. Cathy Mccoy MD /[facility] Authenticated by Cathy Mccoy MD on 05/07/2007 23:59:19 Authorized physician signature on file [facility] NAME: JORGE CHANCE [facility] MR#: [id number] [place] [address] : 1945 PHYSICIAN: Cathy Mccoy MD [facility] TELEPHONE NOTE [facility] Name: JORGE CHANCE TELEPHONE NOTE Source: [facility] ISJHXDICTAPHONESYS Document Id: [id number] Electronically signed by Conversion, [facility] Property Management Assistant [id number] at 02/13/2017 6:12 AM CDT documented in this encounter Plan of Treatment Not on filedocumented as of this encounter Visit Diagnoses Not on filedocumented in this encounter
--- OUTSIDE RECORDS SUMMARY | 2022-05-24 18:30 | XMS_ITS | Encounter Summary ---
:1945 Author Organization [facility] Address [address] [place] [address] Care Team Providers Name Role Phone Unavailable Primary Care Provider Unavailable Encounter Details Date Type Department Care Team Description 12/30/2008 Hospital Encounter HX [facility] Cathy Rosenthal M.D. Social History Tobacco Use [...] or relatives? How often do you attend catholic or More than 4 times per year 06/14/2019 faith services? Do you belong to any clubs or Yes 06/14/2019 organizations such as catholic groups, unions, fraternal or athletic groups, [...] encounter Progress Notes Cathy Mccoy M.D. - 12/30/2008 12:00 [place] [address] Name: JORGE CHANCE MR#: [id number] : [birth year] Dictating Provider: Cathy Mccoy MD Serv Date: 12/30/08 CLINIC NOTE S: He is a 63-year-old male who is here for a three-month diabetic check. PAST MEDICAL HISTORY: Diabetes, gout, hypertension, hyperlipidemia. He had an HI with a stent in four placed with an [id number] arrest in October 2005. He also had an allergic reaction to something shortly after that. They also removed a heel spur. ALLERGIES: PENICILLIN, BEE STINGS. They think the allergy after his arrest was to Lipitor. He also has ALLERGIES TO BAND-AIDS AND CLINDAMYCIN. CURRENT MEDICATIONS: Allopurinol 100 mg b.i.d.; aspirin 81 mg daily; metoprolol 12.5 mg b.i.d.; metformin 1000 mg b.i.d.; TriCor 48 mg daily; ibuprofen as needed; Pepto-Bismol as needed; Benadryl as needed; glipizide 10 mg b.i.d.; Lantus 28 units at bedtime; NitroQuick p.r.n.; Lamisil topical; Natural tears. His postprandial after one hour is about 200, after two hours is about 150 to 180. Prior to meals he is about 120. He said he is getting much better since he has been on the Lantus. We tried him on 70/30 and that did not work for him at all. He has increased the Lantus by himself to 28 units. He checks his sugar a couple times a day at different times of the day. He said it is consistently about 180 in the morning. The last few days the sugars have been better. He is likely going to change his Lantus to 30 units and he is watching what he eats really closely now. REVIEW OF SYSTEMS: ENT - He is getting a runny nose in the morning. When it is really bad he uses Benadryl. I mentioned maybe he could try [id number] Zyrtec. That might make him less tired. Chest - No shortness of breath or cough. Cardiovascular - He has had a little bit of pain in his chest. He gets it every 3 or 4 days and it lasts for 5 to 7 seconds. He is not really associating with exertion or eating. They do not last long enough for him to take a nitroglycerine. He does not notice it coming on if he is twisting or bending, as he describes it as a dull ache or a little bit of a tightness. This has been going on since October. GI - He has some irritable bowel syndrome. He goes for about two weeks without problems, then he is constipated for one or two days, and then he has diarrhea for a day. He does not think it is anything in his diet that is affecting it. The day he gets diarrhea he really gets kind of upset. I did suggest taking Metamucil daily to kind of calm down both systems. Genitourinary - No dysuria, hematuria. Musculoskeletal - No muscle or joint pain. Endocrine - No increased thirst, urination, heat or cold intolerance. Neurology - No numbness, tingling, or seizures. 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 This is up in the [facility] with a facial surgeon, Ava Us. O: Blood pressure 124/78. Pulse 72. Respirations 16. Temperature 36.7. Weight 121.7. Chest - Clear to auscultation bilaterally. Cardiovascular - Regular rate and rhythm. No murmur. He has no chest wall pain. Neck - Supple without bruits or thyromegaly. His feet have good pulses. No sensation change. He does not have edema or any lesions. DIAGNOSTIC DATA: A1c 7.7. A: 1. DIABETES. 2. HISTORY OF CORONARY ARTERY DISEASE. 3. ATYPICAL CHEST PAIN. P: We did an EKG which showed sinus bradycardia, anteroseptal infarct, and possible inferior infarct, but these have not changed from previous, and we do know he had a heart attack. Because of the chest pain, we are going to get a cardiology consult. He has not really had one since his followup after his heart attack. I think this shows a change in his cardiac status and he should be watched. He would like to increase the Lantus. I did mention giving some Humalog with the meals, but he was not willing to do that at this point. As mentioned, we suggested some Zyrtec for his sinus problems and Metamucil for his stomach problems. Follow up in three months. SILVIANO:tab Doc#: [id number] Authenticated by Cathy Mccoy MD on 01/05/2009 23:41:22 Authorized physician signature on file [facility] NAME: JORGE CHANCE [facility] MR#: [id number] [place] [address] : 1945 PHYSICIAN: Cathy Mccoy MD VISIT DATE: 12/30/[address] [facility] Name: JORGE CHANCE CLINIC PROGRESS NOTE [facility] ISJHXDICTAPHONESYS Document Id: [id number] documented in this encounter Plan of Treatment Not on filedocumented as of this encounter Visit Diagnoses Not on filedocumented in this encounter
--- OUTSIDE RECORDS SUMMARY | 2022-05-24 18:30 | XMS_ITS | Encounter Summary ---
:1945 Author Organization [facility] Address [address] [place] [address] Care Team Providers Name Role Phone Unavailable Primary Care Provider Unavailable Encounter Details Date Type Department Care Team Description 10/25/2006 Hospital Encounter HX [facility] Claros, Brenda.P.MKamila [address] [place] [address] [phone] (Wo rk) Social History Tobacco Use Types [...]
--- OUTSIDE RECORDS SUMMARY | 2022-05-24 18:30 | XMS_ITS | Encounter Summary ---
:1945 Author Organization [facility] Address [address] [place] [address] Care Team Providers Name Role Phone Unavailable Primary Care Provider Unavailable Encounter Details Date Type Department Care Team Description 11/13/2007 - Hospital Encounter HX [facility] PT Nadine, 03/21/2009 Junior Morgan Social History Tobacco Use Types [...] documented as of this encounter Progress Notes Conversion, Historical Provider Ser - 11/13/2007 12:00 AM CST PTN-[facility] [place] [address] Name: JORGE CHANCE MR#: [id number] : [birth year] Age: 63 Dictating Provider: Oscar Rg Adm/Serv Date: 11/13/07 PHYSICAL THERAPY NOTE DISCHARGE SUMMARY: 12/10/2007 S: Patient seen from 11/13/2007 through 11/23/2007 for 5 sessions concerning right medial hamstring and piriformis strain. 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 He received a series of ultrasound/E-Stim. Patient was going to take a week off and see if he needed any further therapy at that time. He did not call back for any other visits. He was independent with appropriate stretches. Patient achieved all of his therapy goals and is dismissed from physical therapy at this time. Oscar Rg PT, ATR /hmb Authenticated by Oscar Rg PT, ATR on 04/13/2008 19:17:44 Authorized physician signature on file Doc#: [id number] [facility] NAME: JORGE CHANCE [facility] MR#: [id number] [place] [address] : 1945 PROVIDER: Oscar Rg PT ATR START OF CARE: 11/13/2007 PHYSICAL THERAPY NOTE [facility] Name: JORGE CHANCE PHYSICAL THERAPY NOTE Source: [facility] ISJHXDICTAPHONESYS Document Id: [id number] Conversion, Historical Provider Ser - 11/13/2007 12:00 AM CST PTN[facility] [place] [address] Name: JORGE CHANCE MR#: [id number] : [birth year] Age: 62 Dictating Provider: Velma Rodas Adm/Serv Date: 11/13/07 PHYSICAL THERAPY NOTE VISIT DATE: 11/15/07 S: Jorge states that he did have some relief following his initial visit and it felt somewhat better the following day, but felt this AM that his pain was back to his original complaints. O: Treatment today consisted of US in conjunction w/E-stim to his proximal hamstring times 12 minutes at 1.8W/cm2. We did this in a supine position; we followed it directly w/some gentle hamstring stretching as well as the piriformis stretches repeating these 3 reps holding it 45 seconds each. We reviewed his strengthening exercises in the gym eliminating any incline on the TM and the elliptical machine. A: Patient continuing to have pain complaints in his hamstring insertion area and understanding his modified exercise program. P: We will follow up w/him on a twice a week basis next week. Velma Rodas PTA /[facility] Authenticated by Velma Rodas PTA on 12/04/2007 16:52:17 Authorized physician signature on file [facility] NAME: JORGE CHANCE [facility] MR#: [id number] [place] Wise [address] : 1945 PROVIDER: Velma Rodas PTA START OF CARE: 11/13/2007 PHYSICAL THERAPY NOTE [facility] Name: JORGE CHANCE PHYSICAL THERAPY NOTE Source: [facility] ISJHXDICTAPHONESYS Document Id: [id number] Conversion, Historical Provider Ser - 11/13/2007 12:00 AM CST [facility] [place] [address] Name: JORGE CHANCE MR#: [id number] : [birth year] Age: 62 Dictating Provider: Velma Rodas Adm/Serv Date: 11/13/07 PHYSICAL THERAPY NOTE VISIT DATE: 11/20/07 S: Patient does state that he is starting to notice some long lasting relief. He has less pain the first thing in the morning than he had previously and by 10:00 am he feels very little pain. O: Treatment today consisted of a combination of E-stim w/US times 12 minutes to his right proximal hamstring at 80 pulses per second and 2.0W/cm2. He tolerated this very well. We performed manual hamstring stretching in a supine position immediately following the US as well as a piriformis stretch. The patient continues to modify his exercise program in the gym. We have not added in anything that would stress the hamstrings. A: Patient making significant gains regarding the pain that he was having in his hamstrings. P: We will gradually add back in some strengthening activities for his hamstrings on his next visit. Velma Rodas PTA /siva Authenticated by Velma Rodas PTA on 12/07/2007 11:02:24 Authorized physician signature on file [facility] NAME: JORGE CHANCE [facility] MR#: [id number] [place] [address] : 1945 PROVIDER: Velma Rodas PTA START OF CARE: 11/13/2007 PHYSICAL THERAPY NOTE [facility] Name: JORGE CHANCE PHYSICAL THERAPY NOTE Source: [facility] ISJHXDICTAPHONESYS Document Id: [id number] Conversion, Historical Provider Ser - 11/13/2007 12:00 [place] [address] Name: JORGE CHANCE MR#: [id number] : [birth year] Age: 62 Dictating Provider: Velma Rodas Adm/Serv Date: 11/13/07 PHYSICAL THERAPY NOTE VISIT DATE: 11/23/07 S: Patient states that he is feeling significantly better. He only has pain the first thing in the morning by noon time he has very little pain. O: Treatment today consisted of US/E-stim to his proximal hamstring times 10 minutes at 2.4W/cm2 and 80 pps. He followed this w/very gentle stretching to his hamstrings and his piriformis. We did not do any passive stretching today as that seemed to increase his pain. A: Patient making steady progress in regards to decreased pain. P: At this time we will allow the patient to work on this independently over the next week. We will follow up w/him at that time. Velma Rodas PTA /[facility] Authenticated by Velma Rodas PTA on 12/11/2007 07:37:50 Authorized physician signature on file [facility] NAME: JORGE CHANCE [facility] MR#: [id number] [place] [address] : 1945 PROVIDER: Velma Rodas PTA START OF CARE: 11/13/2007 PHYSICAL THERAPY NOTE [facility] Name: JORGE CHANCE PHYSICAL THERAPY NOTE Source: [facility] ISJHXDICTAPHONESYS Document Id: [id number] documented in this encounter H&P Notes Conversion, Historical Provider Ser - 11/13/2007 12:00 AM CST IE-[facility] [place] [address] Name: JORGE CHANCE MR#: [id number] : [birth year] Age: 62 Dictating Provider: Oscar Rg Adm/Serv Date: 11/13/07 PMR INITIAL EVALUATION SUBJECTIVE: History: Patient is a 62 y/o male referred to PT by Dr. Mccoy diagnosed w/right buttock pain. Patient states that he has been having trouble w/this now for about 3 weeks. Basically he describes getting up in the morning to go the bathroom and had a great deal of pain that almost inhibited him from walking. He does not remember lifting or injuring himself. He consistently describes it as a Luis horse. He denies any LE pain. Patient's Goal: Patient would like to be able to resume all of his normal activities and be able to get up and walk painfree the first thing in the morning. Patients only significant past medical history are that of a GA w/stinting several years ago. OBJECTIVE: Gait: Completely normal. He is alert and oriented times three. He is very cooperative. Joint Integrity: Normal for hip and lumbar spine w/no deformities or crepitus. Muscle Performance: 5/5 for the right hip w/the exception of discomforts w/resisted ER of the hip. Pain: Rates his pain 5/10 on average. Posture: Normal. Palpation: Patient is focally tender w/deep palpation of the proximal 1/3 of medial hamstrings of the right thigh. Minimally over the right piriformis and right buttock. Non tender over the greater trochanter. ROM: Standing trunk ROM is full. His hip ROM is full and symmetrically, however he does have significant reproduction of discomfort w/piriformis as well as short arc hamstring stretching is limited w/knee extension lagging 40 degrees from terminal extension. Reflex Integrity: Symmetrical for knee and ankle. Sensory Integrity: Intact for light touch. Special Tests: Positive pain w/SLR for hamstring pain at 70 degrees. Negative Genesis's test. ASSESSMENT: 62 y/o male w/ R medial hamstring and piriformis strain. Problem List: Patient exhibiting inflexibility w/right hamstring and piriformis. PLAN: Interventions: US/E-stim, ther exercise and MT. Treatment: Patient's session today consisted of combination US/E-stim at 1.6W/cm2 at 80 pps to the right medial hamstring in prone followed by manual stretching of piriformis and hamstrings. Instructed him in exercises for the same w/30 second holds times two and gave him written exercises for these. Told him to hold off the elliptical machine as this tends to bother him a little bit w/his workouts and also walk on the TM w/no incline which he has been doing. Encourage him to hold for about a week on this and then he should be able to return. We plan on seeing him twice a week over the next 2 weeks. Goals: Short term goals: Patient will be independent w/appropriate hamstring and piriformis stretches by the 2nd visit. 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 Oscar Rg PT, ATR /m [facility] Authenticated by Oscar Rg PT, ATR on 11/15/2007 09:48:16 Authorized physician signature on file RE: JORGE CHANCE MR#: [id number] PAGE: 2 [facility] NAME: JORGE CHANCE [facility] PHYSICAL THERAPY INITIAL EVALUATION [facility] NAME: JORGE CHANCE [facility] MR#: [id number] [place] [address] : 1945 PROVIDER: Oscar Rg PT, ATR DATE: 11/13/2007 PHYSICAL THERAPY INITIAL EVALUATION [facility] NAME: JORGE CHANCE [facility] PHYSICAL THERAPY INITIAL EVALUATION [facility] Name: OJRGE CHANCE PMR INITIAL EVALUATION Source: [facility] ISJHXDICTAPHONESYS Document Id: [id number] documented in this encounter Plan of Treatment Not on filedocumented as of this encounter Visit Diagnoses Not on filedocumented in this encounter
--- OUTSIDE RECORDS SUMMARY | 2022-05-24 18:30 | XMS_ITS | Encounter Summary ---
:1945 Author Organization [facility] Address [address] [place] [address] Care Team Providers Name Role Phone Unavailable Primary Care Provider Unavailable Encounter Details Date Type Department Care Team Description 01/21/2011 Hospital Encounter HX [facility] Cathy Rosenthal M.D. Social [...] More than 4 times per year 06/14/2019 sabianist services? Do you belong to any clubs [...] encounter Progress Notes Cathy Mccoy M.D. - 01/21/2011 11:05 AM CDT [facility] DATE OF SERVICE: 01/21/2011 REASON FOR VISIT He has a few problems he wants to address. HISTORY OF PRESENT ILLNESS [place] in the [place] and he has now got a rash on his right wrist, bothankles and legs, and the left back. He has had this for about a week and so it is starting to calm down and look a little bit like it is drying up. He has also had fatigue and lung congestion for 2-3 months. Two weeks ago, he had cough with yellow phlegm. He has been taking Benadryl and that does help; now it is white phlegm. The other night though, he was outdoor for a meeting. A fog came in from the yi and it got very hard for him to breath. If he goes up and down steps, he cannot do as much as he used to. PAST MEDICAL, FAMILY, AND SOCIAL HISTORY Medical: 1. Diabetes. 2. Coronary artery disease with out of hospital cardiac arrest . 3. Hypertension. 4. Hyperlipidemia. 5. Gout. 6. Arterial stent. 7. Acute myocardial infarction. 8. Skin cancer. 9. Colonoscopy in 2007. 10. Excision of calcaneal spur. Family: Family history of renal stones, cataracts, glaucoma, diabetes, sleep apnea, coronary artery disease, and cancer. Social: Does not smoke, but he does live with somebody who does or has in the past. MEDICATIONS 1. Nitroglycerine p.r.n. 2. Lidex 2 times a day. 3. Viagra prior to sexual intercourse. 4. Metformin 1000 mg b.i.d. 5. Allopurinol 100 mg two times a day. 6. Metoprolol 25 mg ?? tablet twice a day. 7. Lisinopril 5 mg daily. 8. Gemfibrozil 600 mg b.i.d. 9. Humalog Mix 75/25 60 units in the morning, 50 units in the evening. 10. Lamisil p.r.n. 11. Aspirin 81 mg daily. 12. Benadryl p.r.n. 13. Ibuprofen p.r.n. 14. Pepto-Bismol p.r.n. ALLERGIES PENICILLIN, LIPITOR, BEE STINGS, CLINDAMYCIN. REVIEW OF SYSTEMS See HPI. EXAMINATION VITAL SIGNS: Blood pressure 120/70, pulse 78, respirations 24, temperature 35.9, weight 117.4 kg, height 194 cm. SKIN: He has linear rashes as described above. They are dark red. Not any blistering at this point, but I think they have dried up. It appears to be poison kayden. CHEST: Clear to auscultation bilaterally. CARDIOVASCULAR: Regular rate and rhythm, no murmur. EXTREMITIES: Without edema. HEENT: No sinus tenderness. Oropharynx without drainage. IMPRESSION/REPORT/PLAN 1. Poison kayden. 2. Shortness of breath. PLAN: We are going to check a Pro BNP since he has had heart disease, chest x- ray. Start a Medrol Dosepak, albuterol, and a Z-Yves, and if that does not improve him we are going to have him see Pulmonary. SILVIANO:dana Doc#: [id number] cc: Electronically Signed By: CATHY MCCOY MD On: 04/04/2011 06:24 PM Source: [facility] ISJDICTAPHONESYS Document Id: [id number] documented in this encounter Miscellaneous Notes Miscellaneous - Cathy Mccoy M.D. - 01/21/2011 11:32 AM CDT Ambulatory Patient Summary [address] [address] Visit Information Name: AVE CHANCE Current Date: 01/21/2011 11:32:55 Primary Care Provider: CATHY MCCOY MD Your [...] hours as needed for Shortness of Breath methylPREDNISolone (Medrol Dosepak 4 mg oral tablet) See special instructions Oral as directed for 6Days metoprolol (metoprolol 25 mg oral tablet) 12.5 mg Oral two times a day hypertension insulin lispro-insulin lispro protamine (Humalog Mix 75/25 subcutaneous suspension) See [id number] units in am and 50 units in pm allopurinol (allopurinol 100 mg oral tablet) 100 mg Oral two times a day gout lisinopril (lisinopril 5 mg oral tablet) 5 mg Oral once a day gemfibrozil (gemfibrozil 600 mg oral tablet) 600 mg Oral two times a day metformin (metformin 1000 mg oral tablet) 1,000 mg Oral two times a day with meals diabetes / This is a 90 day supply........ fluocinonide topical (Lidex 0.05% topical solution) 1 cecile Topical two times a day nitroglycerin (nitroglycerin 0.4 mg sublingual tablet) 0.4 mg Sublingual as needed as needed for Chest Pain chest pain sildenafil (Viagra 50 mg oral tablet) 1 tablet one hour prior to sexual activity Oral once a day as needed for erectile dysfunction terbinafine topical (Lamisil Topical) 1 cecile Topical once a day rash diphenhydrAMINE (Benadryl) Oral as needed bismuth subsalicylate (Pepto-Bismol) Oral as needed upset stomach ibuprofen (ibuprofen) Oral as needed aspirin (aspirin 81 mg oral tablet) 81 mg Oral once a day preventativae Your Allergies & Intolerances Substance Reaction Symptoms Category Comments clindamycin Drug penicillin Hives Drug penicillin SOB - Shortness of breath Drug Lipitor Chest Pain:Pressure/Tightness Drug Bee Stings Environment Your Problem List Problem Status Onset Comments Diabetes mellitus type II Active CAD - Coronary artery disease Active HTN [Hypertension] Active Hyperlipidemia Active Gout [...] Additional Information Diabetes: A1C every 6 months 08/16/2010 02/15/2011 Average of blood sugar over a 2-3 month timeframe. Diabetes and/or Vascular: Consider aspirin or antiplatelet therapy 03/13/2009 Ongoing May reduce your risk of heart attack and stroke if on aspirin or anti- platelet therapy. Diabetes and/or Vascular: LDL every 1 year 08/16/2010 08/16/2011 Screening Colonoscopy or Flex Sig or Occult Blood X3 06/23/2008 06/21/2018 Checks for signs of cancer of the colon. Lipid Panel every 5 years Age 20-75 08/16/2010 08/15/2015 Checks blood for good (HDL) and bad (LDL) cholesterol. Know your numbers, they are one indicator of your risk for heart attack and stroke. Vaccine: Flu every 1 year 06/30/2010 06/30/2011 Immunization to help prevent you from getting the flu strain expected to be a problem for that year's flu season. Vaccine: Pneumococcal Once 08/09/2006 Completed Immunization to help prevent you from getting 23 kinds of pneumococcal bacteria that can lead to pneumonia, bacteremia and meningitis. Vaccine: Tetanus every 10 years 07/14/2003 07/11/2013 Immunization to help prevent you from getting the serious disease Tetanus (Lockjaw). Your Upcoming Appointments Date Time Location Reason Provider 03/01/2011 09:15 [facility] DIABETIC CHECK Cathy Mccoy MD Your Goals/Additional instructions: Source: [facility] POWERCHART Document Id: [id number] Electronically signed by Conversion, [facility] Renal Social Worker [id number] at 02/12/2017 6:52 PM CDT Miscellaneous - Cathy Mccoy M.D. - 01/21/2011 11:32 AM CDT Ambulatory Depart Summary [address] [address] Visit Information Name: AVE CHANCE Current Date: 01/21/2011 11:32:52 Primary Care Provider: CATHY MCCOY MD AVE [...] hours as needed for Shortness of Breath methylPREDNISolone (Medrol Dosepak 4 mg oral tablet) See special instructions Oral as directed for 6Days metoprolol (metoprolol 25 mg oral tablet) 12.5 mg Oral two times a day hypertension insulin lispro-insulin lispro protamine (Humalog Mix 75/25 subcutaneous suspension) See [id number] units in am and 50 units in pm allopurinol (allopurinol 100 mg oral tablet) 100 mg Oral two times a day gout lisinopril (lisinopril 5 mg oral tablet) 5 mg Oral once a day gemfibrozil (gemfibrozil 600 mg oral tablet) 600 mg Oral two times a day metformin (metformin 1000 mg oral tablet) 1,000 mg Oral two times a day with meals diabetes / This is a 90 day supply........ fluocinonide topical (Lidex 0.05% topical solution) 1 cecile Topical two times a day nitroglycerin (nitroglycerin 0.4 mg sublingual tablet) 0.4 mg Sublingual as needed as needed for Chest Pain chest pain sildenafil (Viagra 50 mg oral tablet) 1 tablet one hour prior to sexual activity Oral once a day as needed for erectile dysfunction terbinafine topical (Lamisil Topical) 1 cecile Topical once a day rash diphenhydrAMINE (Benadryl) Oral as needed bismuth subsalicylate (Pepto-Bismol) Oral as needed upset stomach ibuprofen (ibuprofen) Oral as needed aspirin (aspirin 81 mg oral tablet) 81 mg Oral once a day preventativae Additional Information: Yes - Current list of reconciled medications is provided and explained to the patient and/or family, guardian/caregiver. Source: [facility] POWERCHART Document Id: [id number] Electronically signed by Gricelda, [facility] Social Work[facility] [id number] at 02/12/2017 6:52 PM CDT Miscellaneous - Conversion, Historical Provider Ser - 01/21/2011 11:07 AM CDT Adult Video Technician Intake/History Adult Video Technician Intake/History Entered On: 01/21/2011 11:12 CDT Performed On: 01/21/2011 11:07 CDT by CHARLETTE MCCRAY LPN Intake Chief Complaint: rash on hands/back/legs; fatigue/lung congestion, increases with activity Onset of Symptoms: lung issue for 2 months Ambulatory Intake Additional Information: [place] in the [place]; benadryl helps some with lung congestion Temperature Core: 35.9C(Converted to: 96.6DegF) (LOW) Peripheral Pulse Rate: 78/min Respiratory Rate: 24/min (HI) Systolic Blood Pressure: 120mmHg Diastolic Blood Pressure: 70mmHg NIBP Mean: 87mmHg BP Location: Left upper extremity SpO2: 95% Height: 194.00cm(Converted to: 6ft 4in, 76.38in) Actual Weight: 117.400kg(Converted to: 258lb 13oz) Weight Source: Standing scale Dosing Weight Clinic: 117.40kg Clinic BSA: 2.52 Body Mass Index: 31.19kg/m2 CHARLETTE MCCRAY LPN - 01/21/2011 11:07 CDT Subjective Pain Symptoms: No CHARLETTE MCCRAY LPN - 01/21/2011 11:07 CDT Dependent Habits Tobacco Use/Currently Using: No CHARLETTE MCCRAY LPN - 01/21/2011 11:07 CDT Allergy Allergies (Active) Bee Stings Estimated Onset Date: Unspecified ; Created By: AMANDEEP BURRELL LPN; Reaction Status: Active ; Category: Environment ; Substance: Bee Stings ; Updated By: AMANDEEP BURRELL LPN; ReviewedDate: 01/18/2011 16:48 CDT clindamycin Estimated Onset Date: Unspecified ; Created By: AMANDEEP BURRELL LPN; Reaction Status:Active ; Category: Drug ; Substance: clindamycin ; Updated By: AMANDEEP BURRELL LPN; Reviewed Date: 01/18/2011 16:48 CDT Lipitor Estimated Onset Date: Unspecified ; Reactions: Chest Pain:Pressure/Tightness ; Created By: AMANDEEP BURRELL LPN; Reaction Status: Active ; Category: Drug ; Substance: Lipitor ; Type: Allergy ; Updated By: AMANDEEP BURRELL LPN; Reviewed Date: 01/18/2011 16:48 CDT penicillin Estimated Onset Date: Unspecified ; Reactions: Hives, SOB - Shortness of breath ; CreatedBy: AMANDEEP BURRELL LPN; Reaction Status: Active ; Category: Drug ; Substance: penicillin ; Type:Allergy ; Updated By: AMANDEEP BURRELL LPN; Reviewed Date: 01/18/2011 16:48 CDT Source: [facility] Radius Document Id: [id number] documented in this encounter Plan of Treatment Not on filedocumented as of this encounter Visit Diagnoses Not on filedocumented in this encounter
--- OUTSIDE RECORDS SUMMARY | 2022-05-24 18:30 | XMS_ITS | Encounter Summary ---
:1945 Author Organization [facility] Address [address] [place] [address] Care Team Providers Name Role Phone Unavailable Primary Care Provider Unavailable Encounter Details Date Type Department Care Team Description 10/14/2006 Hospital Encounter [facility]X [facility] Romulo [...]
--- OUTSIDE RECORDS SUMMARY | 2022-05-24 18:30 | XMS_ITS | Encounter Summary ---
:1945 Author Organization [facility] Address [address] [place] [address] Care Team Providers Name Role Phone Unavailable Primary Care Provider Unavailable Encounter Details Date Type Department Care Team Description 12/28/2006 Hospital Encounter HX [facility] Cathy Rosenthal M.D. Social History Tobacco [...] encounter Progress Notes Cathy Mccoy M.D. - 12/28/2006 12:00 [place] [address] Name: JORGE CHANCE MR#: [id number] : [birth year] Dictating Provider: Cathy Mccoy MD Serv Date: 12/28/06 CLINIC NOTE S: He is a 61-year-old male with complaint of chest tightness and cough for about 5 days. The worst was on Monday, about 4 days ago, and he had productive cough, fever, and just was coughing his head off basically. His fever was up to 101 on Monday and 99 on Monday. He was pretty miserable. The last 2 days he has had cough productive of clear to yellow phlegm. He has been taking nighttime cold medications the last 2 days. He says he feels almost normal when he wakes up, but as the day goes on or if he does anything too exertional, his breathing is difficult. ALLERGIES: PENICILLIN, BEE STINGS, LIPITOR, AND BAND-AIDS. O: Blood pressure 120/80. Weight 117.5 kg. Temperature 35.8 C. Pulse 72. Respirations 20. Tympanic membranes - Clear. Voice is scratchy and weak. Oropharynx - Nonerythematous. Neck - Supple without lymphadenopathy. Chest - Clear to auscultation bilaterally. Cardiovascular - Regular rate and rhythm. No murmur. A: UPPER RESPIRATORY INFECTION. P: Z-Yves per instructions. Robitusbecky VELOZ p.r.n. for cough. He is going to come back for a diabetes check. Cathy Mccoy MD /tab Authenticated by Cathy Mccoy MD on 01/04/2007 18:58:36 Authorized physician signature on file [facility] NAME: JORGE CHANCE [facility] MR#: [id number] [place] [address] : 1945 PHYSICIAN: Cathy Mccoy MD VISIT DATE: 12/28/2006 CLINIC PROGRESS NOTE [facility] Name: JORGE CHANCE [facility] PROGRESS NOTE Source: [facility] ISJHXDICTAPHONESYS Document Id: [id number] documented in this encounter Plan of Treatment Not on filedocumented as of this encounter Visit Diagnoses Not on filedocumented in this encounter
--- OUTSIDE RECORDS SUMMARY | 2022-05-24 18:30 | XMS_ITS | Encounter Summary ---
:1945 Author Organization [facility] Address [address] [place] [address] Care Team Providers Name Role Phone Unavailable Primary Care Provider Unavailable Encounter Details Date Type Department Care Team Description 01/20/2009 Hospital Encounter HX [facility] Abhi Green M.D. [address] [place], [place] [address] (Wo rk) Social History Tobacco [...] documented as of this encounter Progress Notes Abhi Green M.D. - 01/20/2009 12:00 AM CDT [facility] [address] [place] [address] Name: JORGE CHANCE : [birth year] Attending Doctor: Abhi Green MD CLINIC NOTE CARDIOLOGY DATE OF SERVICE: 01/20/2009 HISTORY: Mr. Chance is a gentleman I had just seen a month ago for follow-up of coronary artery disease. He had four LAD drug eluting stents during acute PR in 2005 and severe intolerance to statins because of myalgias. I had seen him with some atypical chest pain and he was very worried about it. He has type 2 diabetes. He was exercising regularly though not vigorously enough. He is here for follow-up. I had obtained an exercise echo on him, which was just mildly positive. Ejection fraction was 61% at rest. There was just mild worsening of pre-exercise regional wall motion abnormalities. This was mild and is in the distribution of an anatomic hinge point at the site of insertion of the right ventricle and so it is a very equivocal stress test. He went nine and a half minutes on the Hieu protocol and it was fine. Stress echo suggested RCA dilatory ischemia, but it was only 10-20% stenosed when last checked in 2007 and so it is very equivocal. CURRENT MEDICATIONS: 1. Glipizide 10 mg twice a day. 2. Metformin 1 gram twice a day. 3. Tricor 145 mg every evening. 4. Allopurinol 100 mg twice a day. 5. Metoprolol 12.5 mg twice a day. 6. Nitroglycerin sublingual. 7. Aspirin 81 mg a day. 8. Lantus 30 units a day. 9. EpiPen p.r.n. for allergies. 10. Benadryl for allergies. 11. Ramipril 5 mg a day. The patient states his glucose went down and insulin requirement went down with the Ramipril. I am not sure if it was that dramatic, but the patient is quite certain that is what caused it. PHYSICAL EXAMINATION: GENERAL APPEARANCE: He is a very pleasant gentleman in no acute distress. He is obese. VITAL SIGNS: Weight 122 kg. BP 126/90. Heart rate 60. CARDIOVASCULAR: S1 and S2 are normal. No gallop, rub, click, or murmur. RESPIRATORY: Lungs are clear to auscultation. IMPRESSION AND SUGGESTIONS: 1. Coronary artery disease, status post single vessel stent. I have reassured him that his LAD territory is excellent and so the stents must be open. He had good exercise tolerance with a very borderline stress echo abnormality. I am not too concerned about it. I think it is probably a false positive in any case. His chest pain is certainly noncardiac based on his description and the stress test does not correspond to it. 2. Hyperlipidemia. I have suggested we try and get the LDL down further. His last LDL was 97, triglycerides 364, and HDL 31. He is on combination medicine, but he could try Pravastatin 20 mg a day in addition and see if he can tolerate it. He obviously needs to follow a better diet. I will just report back to Dr. Mccoy. The patient would like me to summarize these abnormalities in a letter and recommendations in a letter and I will do that as well. KMP:ncmth Doc#: [id number] Authenticated by Daina Green M.D. on 2009 18:44:34 Authorized physician signature on file Daina Green M.D. [facility] Cardiovascular Search Planner cc: Cathy Mccoy M.D. [address] [place] [address] [facility] DT: [address] [facility] TD: 02/12/09 TT: 1510 NAME: JORGE CHANCE Source: [facility] ISJHXDICTAPHONESYS Document Id: [id number] Electronically signed by Conversion, [facility] Membership Manager [id number] at 02/12/2017 3:49 PM CDT documented in this encounter Miscellaneous Notes Miscellaneous - Abhi Green M.D. - 01/20/2009 12:00 AM CDT [facility] . February 10, 2009 Jorge Chance [address] [place] [address] Re: JORGE CHANCE : 1945 [facility] Clinic#: [id number] Dear Mr. Chance: As we discussed on your office visit recently, I am just going to summarize what we know about your heart condition. I do not think your chest pain is related to your heart condition. Your exercise capacity was excellent and there was only a slight abnormality noted on the echo, which was in the bottom part of the heart and this was also equivocal in the sense that it does not correspond to any known disease that you have. The front of the heart has recovered completely and your stents must be open. I think Ramipril is a good preventive medication for your kidneys with diabetes and also it has been shown to prevent heart attacks and strokes in people like you. I would recommend that you try a different statin drug, like Pravastatin 20 mg a day, to try and get your LDL down and HDL up. Hopefully you will tolerate it. If you have severe muscles pains, we could try niacin. You should continue on the Tricor. Additionally, as we discussed, you should increase your exercise regimen to 30 minutes every day of at least moderately vigorous walking. You should follow a better diet and try to get your triglycerides and weight down slightly or at least keep is stable. Please feel free to call me if you have any other questions. Sincerely, Authenticated by Daina Green M.D. on 2009 18:45:24 Authorized physician signature on file Daina Green M.D. CARDIOLOGY [facility] KMP:[facility] Doc#: [id number] Enclosure: cc: Cathy Mccoy M.D. [address] [address] RE: JORGE CHANCE [facility]#: [id number] PAGE: 2 [facility] DT: [address] [facility] TD: 02/12/09 TT: 1524 NAME: JORGE CHANCE Source: [place] ISJHXDICTAPHONESYS Document Id: [id number] Electronically signed by Conversion, [facility] Membership Manager [id number] at 02/12/2017 3:49 PM CDT documented in this encounter Plan of Treatment Not on filedocumented as of this encounter Visit Diagnoses Not on filedocumented in this encounter
--- OUTSIDE RECORDS SUMMARY | 2022-05-24 18:30 | XMS_ITS | Encounter Summary ---
:1945 Author Organization [facility] Address [address] [place] [address] Care Team Providers Name Role Phone Unavailable Primary Care Provider Unavailable Encounter Details Date Type Department Care Team Description 08/16/2010 Hospital Encounter HX [facility] Nikia Rosenthal M.D. Social History Tobacco [...] encounter Progress Notes Nikia Mccoy M.D. - 08/16/2010 8:55 AM CST [facility] DATE OF SERVICE: 08/16/2010 REASON FOR VISIT He is a 65-year-old male here for a diabetic check. HISTORY OF PRESENT ILLNESS He needs refills on his medications and he thinks his blood sugars are pretty out of whack. His sugars have not been good. They are 135 in the morning and after he eats they are 250 to 300. He has beenincreasing the Lantus up to 100 and he just does not seem to get much improvement. PAST MEDICAL, FAMILY, AND SOCIAL HISTORY Medical: Diabetes, coronary artery disease, status post rpo-pl-quhqlmvs code, skin cancer, hypertension, hyperlipidemia, gout, arterial stent. Colonoscopy in 2007, excision of calcaneal spur. Family: Cancer, coronary artery disease, sleep apnea, diabetes mellitus, glaucoma, cataracts and renal stones. Social: He does not smoke nor drink alcohol. MEDICATIONS Lantus 100 units; allopurinol 100 mg; gemfibrozil 600 mg b.i.d.; ramipril; metformin 1000 mg b.i.d.;metoprolol 25 mg half tablet b.i.d.; nitroglycerine p.r.n.; Viagra 50 mg an hour prior to intercourse; aspirin 81 mg; Pepto-Bismol p.r.n.; Benadryl p.r.n.; ibuprofen p.r.n.; Lamisil p.r.n. rash. ALLERGIES PENICILLIN, LIPITOR, BEE STINGS, CLINDAMYCIN. REVIEW OF SYSTEMS ENT: He has had nosebleeds for a month. He thinks it is the Ramipril that is causing this. Chest: Noshortness of breath or cough. Cardiovascular: Occasionally he has a small pain in the left chest if he works outside. He has not used any nitroglycerine, however. GI: No nausea, vomiting, diarrhea, cons tipation. Genitourinary: Every two weeks he has a hard stool and then he gets diarrhea and we mentioned taking stool softeners regularly. Musculoskeletal: Negative. Neurologic: No numbness, tingling orseizures. Psychiatric: Depressed now and then, particularly with the weather. We have been having a real bad winter. Endocrine: No increased thirst, urination, heat or cold intolerance. Skin: He has had breakouts on his scalp. EXAMINATION Blood pressure 114/64. Pulse 64. Temperature 36.1. Respirations rate 20. Weight 114.9 kg. Neck: Supple without bruits. Chest: Clear to auscultation bilaterally. Cardiovascular: Regular rate and rhythm.No murmur. Sensation and pulse on his feet are normal. IMPRESSION/REPORT/PLAN 1. Diabetes. 2. Gout. 3. Hypertension. We are going to give him Lidex for his scalp. Change his ramipril to lisinopril 10 mg. Change his Lantus to Humalog 25/75-40 in the morning and 30 in the evening. Check a hemoglobin A1c, microalbumin, lipid-2 and uric acid. Contact him with laboratory results. He should come back in three months sincewe have changed, or sooner if needed. SILVIANO:tab Doc#: [id number] Electronically Signed By:NIKIA MCCOY MD On 09/27/2010 10:59 AM Source: [facility] ISJDICTAPHONESYS Document Id: [id number] Y FORGER HELPER documented in this encounter Miscellaneous Notes Miscellaneous - Nikia Mccoy M.D. - 08/16/2010 10:06 AM CST Ambulatory Patient Summary [address] [address] Visit Information Name: JORGE CHANCE Current Date: 08/16/2010 10:06:34 Primary Care Provider: NIKIA MCCOY MD Your Medications Here is a list of your medications. It is important to take your medications as directed. Use a pillbox or chart to help remind you to take your medications. Please let your doctor or nurse know if you have problems taking your medications. Medication/Strength Dose Route Frequency Indications/Special Instructions/Comments fluocinonide topical (Lidex 0.05% topical solution) 1 cecile Topical two times a day insulin lispro-insulin lispro protamine (Humalog Mix 75/25 KwikPen subcutaneous suspension) See Instructions 40 units in am and 30 units in pm lisinopril (lisinopril 5 mg oral tablet) 5 mg Oral once a day nitroglycerin (nitroglycerin 0.4 mg sublingual tablet) 0.4 mg Sublingual as needed as needed for Chest Pain chest pain metoprolol (metoprolol 25 mg oral tablet) 12.5 mg Oral two times a day hypertension gemfibrozil (gemfibrozil 600 mg oral tablet) 600 mg Oral two times a day allopurinol (allopurinol 100 mg oral tablet) 100 mg Oral two times a day gout metformin (metformin 1000 mg oral tablet) 1,000 mg Oral two times a day with meals diabetes sildenafil (Viagra 50 mg oral tablet) 1 [...] Test/Treatment Last Done Next Due Additional Information Diabetes and/or Vascular: Consider aspirin or antiplatelet therapy 03/13/2009 Ongoing May reduce your risk of heart attack and stroke if on aspirin or anti- platelet therapy. Screening Colonoscopy or Flex Sig or Barium Enema or Occult Blood X3 06/23/2008 06/21/2018 Checks for signs of cancer of the colon. Vaccine: Flu every 1 year 06/30/2010 06/30/2011 [...] No Appointments found Your Goals/Additional instructions: Source: [facility] POWERCHART Document Id: [id number] Electronically signed by Conversion, [facility] Wafer Line Worker [id number] at 02/13/2017 4:58 AM CDT Miscellaneous - Nikia Mccoy M.D. - 08/16/2010 10:06 AM CST Ambulatory Depart Summary [address] [address] Visit Information Name: JORGE CHANCE Current Date: 08/16/2010 10:06:32 Primary Care Provider: NIKIA MCCOY MD JORGE CHANCE has been given the following list of medications: Your Medications It is important to take your medications as directed. Use a pill box or chart to help remind you to take your medications. Please let your doctor or nurse know if you have problems taking your medications. Medication/Strength Dose Route Frequency Indications/Special Instructions/Comments fluocinonide topical (Lidex 0.05% topical solution) 1 cecile Topical two times a day insulin lispro-insulin lispro protamine (Humalog Mix 75/25 KwikPen subcutaneous suspension) See Instructions 40 units in am and 30 units in pm lisinopril (lisinopril 5 mg oral tablet) 5 mg Oral once a day nitroglycerin (nitroglycerin 0.4 mg sublingual tablet) 0.4 mg Sublingual as needed as needed for Chest Pain chest pain metoprolol (metoprolol 25 mg oral tablet) 12.5 mg Oral two times a day hypertension gemfibrozil (gemfibrozil 600 mg oral tablet) 600 mg Oral two times a day allopurinol (allopurinol 100 mg oral tablet) 100 mg Oral two times a day gout metformin (metformin 1000 mg oral tablet) 1,000 mg Oral two times a day with meals diabetes sildenafil (Viagra 50 mg oral tablet) 1 [...] to the patient and/or family, guardian/caregiver. Source: [facility] POWERCHART Document Id: [id number] Miscellaneous - Margoth Pickard L.P.N. - 08/16/2010 9:00 AM CST Adult Box Printing Machine Operator Intake/History Adult Box Printing Machine Operator Intake/History Entered On: 08/16/2010 9:03 HEAVY FORGER HELPER Performed On: 08/16/2010 9:00 HEAVY FORGER HELPER by MARGOTH PICKARD LPN Intake Chief Complaint: needs refills on medication also diabetic check up also wants to talk about gettingblood sugars more normal Temperature Core: 36.1C(Converted to: 97.0DegF) (LOW) Peripheral Pulse Rate: 64/min Respiratory Rate: 20/min Systolic Blood Pressure: 114mmHg Diastolic Blood Pressure: 64mmHg NIBP Mean: 81mmHg BP Location: Right upper extremity Actual Weight: 114.900kg(Converted to: 253lb 5oz) Dosing Weight Clinic: 114.90kg MARGOTH PICKARD LPN - 08/16/2010 9:00 HEAVY FORGER HELPER Subjective Pain Symptoms: No MARGOTH PICKARD LPN - 08/16/2010 9:00 HEAVY FORGER HELPER Dependent Habits Tobacco Use/Currently Using: No MARGOTH PICKARD LPN - 08/16/2010 9:00 HEAVY FORGER HELPER Allergies Allergies (Active) Bee Stings Estimated Onset Date: Unspecified ; Created By: AMANDEEP BURRELL LPN; Reaction Status: Active ; Category: Environment ; Substance: Bee Stings ; Updated By: AMANDEEP BURRELL LPN; ReviewedDate: 08/16/2010 8:59 HEAVY FORGER HELPER clindamycin Estimated Onset Date: Unspecified ; Created By: AMANDEEP BURRELL LPN; Reaction Status:Active ; Category: Drug ; Substance: clindamycin ; Updated By: AMANDEEP BURRELL LPN; Reviewed Date: 08/16/2010 8:59 HEAVY FORGER HELPER Lipitor Estimated Onset Date: Unspecified ; Reactions: Chest Pain:Pressure/Tightness ; Created By: AMANDEEP BURRELL LPN; Reaction Status: Active ; Category: Drug ; Substance: Lipitor ; Type: Allergy ; Updated By: AMANDEEP BURRELL LPN; Reviewed Date: 08/16/2010 8:59 HEAVY FORGER HELPER penicillin Estimated Onset Date: Unspecified ; Reactions: Hives, SOB - Shortness of breath ; CreatedBy: AMANDEEP BURRELL LPN; Reaction Status: Active ; Category: Drug ; Substance: penicillin ; Type:Allergy ; Updated By: AMANDEEP BURRELL LPN; Reviewed Date: 08/16/2010 8:59 HEAVY FORGER HELPER Source: [facility] Safety HoundCHART Document Id: [id number] HEAVY FORGER HELPER!15 Y FORGER HELPER documented in this encounter Plan of Treatment Not on filedocumented as of this encounter Visit Diagnoses Not on filedocumented in this encounter
--- OUTSIDE RECORDS SUMMARY | 2022-05-24 18:30 | XMS_ITS | Encounter Summary ---
:1945 Author Organization [facility] Address [address] [place] [address] Care Team Providers Name Role Phone Unavailable Primary Care Provider Unavailable Encounter Details Date Type Department Care Team Description 06/23/2008 Hospital Encounter HX NO MAPPING Keshia Daigle M.D. [address] [address] [place], [place] [address] (Wo rk) Social History Tobacco Use Types [...]
--- OUTSIDE RECORDS SUMMARY | 2022-05-24 18:30 | XMS_ITS | Encounter Summary ---
:1945 Author Organization [facility] Address [address] [place] [address] Care Team Providers Name Role Phone Unavailable Primary Care Provider Unavailable Encounter Details Date Type Department Care Team Description 07/02/[address] [facility] Cathy Rosenthal M.D. Social History Tobacco Use [...] encounter Progress Notes Cathy Mccoy M.D. - 07/02/2007 12:00 [place] [address] Name: JORGE CHANCE MR#: [id number] : [birth year] Dictating Provider: Cathy Mccoy MD Serv Date: 07/02/07 CLINIC NOTE S: Jorge is a 62-year-old male who says that since yesterday he started having a full body rash. Blood sugars are also a lot higher this morning than they usually. Usually they are 110 to 130 and today was at 226. They did have some kind of lasagna meal last night, however, I had mentioned that that could be part of the reason he is high. He says he has had a lesion on his right arm, however, about three to four days ago. It started out as a little red papule and the next day he saw papules all around it, and although it does not itch bad, it is there and he notices it. He has been putting petrolatum on it. He also had a tooth pulled about ten days ago. He was put on Clindamycin, which he quit four days ago, and Vicodin. He does not recall any new detergents, different foods other than a lasagna hot dish, and no deodorant changes. O: Blood pressure 120/80. Weight 119 kg. Temperature 34.6 C. Pulse 52. Respirations 16. On his right arm there is a cluster of red papules, all real close to each other. The remainder of the rash is very light pink and macular, tiny macules, on the trunk and arms. I did not see the legs, however. Oropharynx non-erythematous. Hemogram showed increased lymphocytes. White count was 4.5. Hemoglobin was 14.8. Granulocytes 43.8, which is low. Leukocytes 50.3, which is high. Rapid strep was negative. A: RASH. P: I am going to treat with Clindamycin as an allergy. Take him off Tricor for the time being. We are going to use Benadryl 50 mg q6h to try to cut down the itching of the rash. Return if not improving. Cathy Mccoy MD /neo/lb Authenticated by Cathy Mccoy MD on 07/15/2007 17:17:31 Authorized physician signature on file [facility] NAME: JORGE CHANCE [facility] MR#: [id number] [place] [address] : 1945 PHYSICIAN: Cathy Mccoy MD VISIT DATE: 07/02/2007 CLINIC PROGRESS NOTE [facility] Name: JORGE CHANCE [facility] PROGRESS NOTE Source: [facility] ISJHXDICTAPHONESYS Document Id: [id number] Electronically signed by Conversion, [facility] Transportation Worker [id number] at 02/13/2017 10:53 AM CDT documented in this encounter Plan of Treatment Not on filedocumented as of this encounter Visit Diagnoses Not on filedocumented in this encounter
--- OUTSIDE RECORDS SUMMARY | 2022-05-24 18:30 | XMS_ITS | Encounter Summary ---
:1945 Author Organization [facility] Address [address] [place] [address] Care Team Providers Name Role Phone Unavailable Primary Care Provider Unavailable Encounter Details Date Type Department Care Team Description 11/12/2007 Hospital Encounter [facility]X [facility] Tammy Mccoy M.D. Social History Tobacco [...] More than 4 times per year 06/14/2019 hinduism services? Do you belong to any clubs [...]
--- OUTSIDE RECORDS SUMMARY | 2022-05-24 18:30 | XMS_ITS | Encounter Summary ---
:1945 Author Organization [facility] Address [address] [place] [address] Care Team Providers Name Role Phone Unavailable Primary Care Provider Unavailable Encounter Details Date Type Department Care Team Description 04/13/2007 Hospital Encounter HX NO MAPPING Cathy Mccoy M.D. Social History Tobacco Use Types [...] nts DX CHEST AP OR PA Routine 04/13/2007 5:10 PM Resu lts for this AND LATERAL 2 VIEWS CDT procedur e are in the results section. documented in this encounter Results DX Chest AP or PA and Lateral 2 Views (04/13/2007 5:10 PM CDT) Anatomical Region Laterality Modality Chest N/A Radiographic Imaging Specimen (Source) Anatomical Collection Method Collection Time Re ceived Time Location / / Volume Laterality 04/13/2007 5:10 PM CDT Impressions 04/13/2007 5:10 PM CDT Normal chest. Narrative 04/13/2007 5:10 PM CDT Originally Signed By James Craven M.D. -UNKNOWN, PERSONNEL Reason for exam: RHONCHI LT ANTERIOR JO[facility] Reason for exam: Bronchi in the left ant erior chest. PA and lateral views of the chest were o btained, demonstrating the heart and pulmonary vasculature to be wi thin normal limits. The lungs are clear. Procedure Note ProviderAnder M.D. - 02/15/2017F ormatting of this note might be different from the original. Originally Signed By Eloise Rodriguez -UNKNOWN, PERSONNEL Reason for exam: RHONCHI LT ANTERIOR [address] Reason for exam: Bronchi in the left ant erior chest. PA and lateral views of the chest were o btained, demonstrating the heart and pulmonary vasculature to be wi thin normal limits. The lungs are clear. IMPRESSION: Normal chest. Historical Provider IMG DIAGNOSTIC IMAGING PROCE DURES documented in this encounter Visit Diagnoses Not on filedocumented in this encounter
--- OUTSIDE RECORDS SUMMARY | 2022-05-24 18:30 | XMS_ITS | Encounter Summary ---
:1945 Author Organization [facility] Address [address] [place] [address] Care Team Providers Name Role Phone Unavailable Primary Care Provider Unavailable Encounter Details Date Type Department Care Team Description 11/15/2006 Hospital Encounter HX [facility] Provider, [...] More than 4 times per year 06/14/2019 rastafari services? Do you belong to any clubs [...]
--- OUTSIDE RECORDS SUMMARY | 2022-05-24 18:30 | XMS_ITS | Encounter Summary ---
:1945 Author Organization [facility] Address [address] [place] [address] Care Team Providers Name Role Phone Unavailable Primary Care Provider Unavailable Encounter Details Date Type Department Care Team Description 12/21/2010 Hospital Encounter HX [facility] Cathy Rosenthal M.D. Social History Tobacco Use [...] encounter Progress Notes Cathy Mccoy M.D. - 12/21/2010 2:12 PM CDT [facility] DATE OF SERVICE: 12/21/2010 REASON FOR VISIT He is a 65-year-old male who has been having nosebleeds once a week for several months but over the weekend he was having them daily. HISTORY OF PRESENT ILLNESS Often times the bleeding will start during the night. It always comes from the right side. Sometimesit starts just by sitting up. He does not feel them. Over the weekend they would stop for a short time and restart again. He does mention he had a cyst on the left side and he has had a CT recently with a Dr. Us who is an oral surgeon. PAST MEDICAL, FAMILY, AND SOCIAL HISTORY Medical: Diabetes. MS with out of hospital arrest. Hypertension, hyperlipidemia, gout. Arterial stent. Skin cancer. Colonoscopy in 2007. Excision of calcaneal spur. Family: Renal stones, cataracts, glaucoma, diabetes, sleep apnea, coronary artery disease, cancer. Social: He does not smoke. MEDICATIONS Reviewed. ALLERGIES PENICILLIN. LIPITOR. BEE STINGS. CLINDAMYCIN. REVIEW OF SYSTEMS See history of present illness. EXAMINATION VITALS: Blood pressure 110/72. Pulse 76. Respirations 20. Temperature 36.9. Weight 117.2. Height 192cm. NOSE: We looked at his nose. The right naris was irritated but not any blood flow or obvious arteries that are prominent. On the left there was actually a slight amount of blood but it did not look as irritated. IMPRESSION/REPORT/PLAN Nosebleeds. We are going to check a CBC, PT, PTT. I suggested they get some Delvis-Synephrine to try using if he has it again. It may slow down the flow. Also suggested that they keep the area moist, maybe use antibiotic ointment to moisten the area. If he has it again, they may want to see ENT to look further back to see if it is a very posterior bleed. SILVIANO:miguel angel Doc#: [id number] Electronically Signed By: CATHY MCCOY MD On: 01/11/2011 08:26 Source: [facility] ISJDICTAPHONESYS Document Id: [id number] documented in this encounter Miscellaneous Notes Miscellaneous - Cathy Mccoy M.D. - 12/21/2010 3:02 PM CDT Ambulatory Patient Summary [address] [address] Visit Information Name: AVE CHANCE Current Date: 12/21/2010 15:02:31 Primary Care Provider: CATHY MCCOY MD Your Medications Here is a list of your medications. It is important to take your medications as directed. Use a pillbox or chart to help remind you to take your medications. Please let your doctor or nurse know if you have problems taking your medications. Medication/Strength Dose Route Frequency Indications/Special Instructions/Comments insulin lispro-insulin lispro protamine (Humalog Mix 75/25 subcutaneous suspension) See [id number] units in am and 50 units in [...] mg Oral two times a day hypertension sildenafil (Viagra 50 mg oral tablet) 1 [...] 08/16/2011 Screening Colonoscopy or Flex Sig or Barium [...] No Appointments found Your Goals/Additional instructions: Source: [facility] POWERCHART Document Id: [id number] Electronically signed by Gricelda, [facility] Rehab Manager [id number] at 02/12/2017 9:43 AM CDT Miscellaneous - Cathy Mccoy M.D. - 12/21/2010 3:02 PM CDT Ambulatory Depart Summary [address] [address] Visit Information Name: OFELIAAVE Current Date: 12/21/2010 15:02:29 Primary Care Provider: CATHY MCCOY MD [address] BARKER has been given the following list of medications: Your Medications It is important to take your medications as directed. Use a pill box or chart to help remind you to take your medications. Please let your doctor or nurse know if you have problems taking your medications. Medication/Strength Dose Route Frequency Indications/Special Instructions/Comments insulin lispro-insulin lispro protamine (Humalog Mix 75/25 subcutaneous suspension) See Ztrjjlibvwij01 units in am and 50 units in [...] mg Oral two times a day hypertension sildenafil (Viagra 50 mg oral tablet) 1 [...] to the patient and/or family, guardian/caregiver. Source: [facility] POWERCHART Document Id: [id number] Electronically signed by Gricelda [facility] Rehab Manager [id number] at 02/12/2017 9:43 AM CDT Miscellaneous - Shirin Keen L.P.N. - 12/21/2010 2:25 PM CDT Adult Scientific Informatics Analyst Intake/History Adult Scientific Informatics Analyst Intake/History Entered On: 12/21/2010 14:29 CDT Performed On: 12/21/2010 14:25 CDT by SHIRIN KEEN LPN Intake Chief Complaint: pt has been having nosebleeds approx once a week for several months and then over the weekend pt had them daily. Often times the bleeding would start during the night. It is always theright nostril Temperature Core: 36.9C(Converted to: 98.4DegF) Peripheral Pulse Rate: 76/min Respiratory Rate: 20/min Systolic Blood Pressure: 110mmHg Diastolic Blood Pressure: 72mmHg NIBP Mean: 85mmHg BP Location: Left upper extremity Height: 192.00cm(Converted to: 6ft 4in, 75.59in) Actual Weight: 117.200kg(Converted to: 258lb 6oz) Dosing Weight Clinic: 117.20kg Clinic BSA: 2.50 Body Mass Index: 31.79kg/m2 SHIRIN KEEN LPN - 12/21/2010 14:25 CDT General Info Information Given By: Patient Preferred Communication Mode: Verbal Languages: Paraguayan SHIRIN KEEN LPN - 12/21/2010 14:25 CDT Subjective Pain Symptoms: No SHIRIN KEEN LPN - 12/21/2010 14:25 CDT Dependent Habits Tobacco Use/Currently Using: No SHIRIN KEEN LPN - 12/21/2010 14:25 CDT Allergies Allergies (Active) Bee Stings Estimated Onset Date: Unspecified ; Created By: AMANDEEP BURRELL LPN; Reaction Status: Active ; Category: Environment ; Substance: Bee Stings ; Updated By: AMANDEEP BURRELL LPN; ReviewedDate: 08/16/2010 8:59 DIRECTOR OF LABORATORY OPERATIONS clindamycin Estimated Onset Date: Unspecified ; Created By: AMANDEEP BURRELL LPN; Reaction Status:Active ; Category: Drug ; Substance: clindamycin ; Updated By: AMANDEEP BURRELL LPN; Reviewed Date: 08/16/2010 8:59 DIRECTOR OF LABORATORY OPERATIONS Lipitor Estimated Onset Date: Unspecified ; Reactions: Chest Pain:Pressure/Tightness ; Created By: AMANDEEP BURRELL LPN; Reaction Status: Active ; Category: Drug ; Substance: Lipitor ; Type: Allergy ; Updated By: AMANDEEP BURRELL LPN; Reviewed Date: 08/16/2010 8:59 DIRECTOR OF LABORATORY OPERATIONS penicillin Estimated Onset Date: Unspecified ; Reactions: Hives, SOB - Shortness of breath ; CreatedBy: AMANDEEP BURRELL LPN; Reaction Status: Active ; Category: Drug ; Substance: penicillin ; Type:Allergy ; Updated By: AMANDEEP BURRELL LPN; Reviewed Date: 08/16/2010 8:59 DIRECTOR OF LABORATORY OPERATIONS Source: [facility] [employer]ord Document Id: [id number] CDT!23 documented in this encounter Plan of Treatment Not on filedocumented as of this encounter Visit Diagnoses Not on filedocumented in this encounter
--- OUTSIDE RECORDS SUMMARY | 2022-05-24 18:30 | XMS_ITS | Encounter Summary ---
:1945 Author Organization [facility] Address [address] [place] [address] Care Team Providers Name Role Phone Unavailable Primary Care Provider Unavailable Encounter Details Date Type Department Care Team Description 05/16/2007 Hospital Encounter [facility]X [facility] Cathy Rosenthal M.D. Social History Tobacco Use [...] or relatives? How often do you attend cheondoism or More than 4 times per year 06/14/2019 restorationist services? Do you belong to any clubs or Yes 06/14/2019 organizations such as cheondoism groups, unions, fraternal or athletic groups, or [...] encounter Progress Notes Cathy Mccoy M.D. - 05/16/2007 12:00 [place] [address] Name: JORGE CHANCE MR#: [id number] : [birth year] Dictating Provider: Cathy Mccoy MD Serv Date: 05/16/07 CLINIC NOTE S: A month ago he came in for a diabetic check. We checked his cholesterol level and liver function. The liver function was up, so we had him stop his statin and wanted him to be rechecked. We also rechecked a uric acid because we had started him on allopurinol. He is here for results and discussion. His cholesterol, off of the statin, was quite good with a total cholesterol being 178, HDL being low at 28, triglycerides being quite high at 389, and an LDL being 73. His uric acid was pretty good at 5.9. Liver function was back down to normal at 33. We discussed some of the reasons why his triglycerides could be high including poor control of his diabetes and he said his sugars have been high, but he thought he was taking his Lantus wrong. He is taking 15 units of Lantus at bedtime. He was refrigerating and per the instructions he should not have refrigerated it after he started using it. He said the last 3 days his sugars have been a lot better being at 130 or less. He is also taking glipizide 10 mg b.i.d.; Avandia 2 mg daily; allopurinol 100 mg b.i.d.; aspirin 81 mg daily; metoprolol 12.5 mg b.i.d.; metformin 1000 mg b.i.d. He also complains for the last 2 weeks he had right leg Luis horses in the thigh in the morning. It goes away in about 10 minutes. O: Blood pressure 120/70. Weight 120.3 kg. Temperature 36.2. Pulse 68. Respirations 20. Neck - Supple without bruits. Chest - Clear to auscultation bilaterally. Cardiovascular - Regular rate and rhythm. No murmur. Back - Nontender on the lumbar spine, but he does have some right mild sciatic tenderness. He also has a complaint of heel pain. He thought he had an infection in there. I think it is plantar fasciitis. There is no erythema or warmth there. A: 1. HYPERTRIGLYCERIDEMIA. 2. LEG CRAMPS-QUESTION DUE TO SCIATICA. 3. DIABETES. P: We are going to add a potassium and magnesium on to make sure he does not have an abnormal level there, which could be causing leg cramps. We are going to start TriCor 48 mg and check that in 2 months when he should have his diabetes check again. If his results come out normal, I would suggest possibly physical therapy for the sciatic. Cathy Mccoy MD /tab Authenticated by Cathy Mccoy MD on 06/11/2007 16:09:40 Authorized physician signature on file [facility] NAME: JORGE CHANCE [facility] MR#: [id number] Billie S[address]INA [address] : 1945 PHYSICIAN: Cathy Mccoy MD VISIT DATE: 05/16/2007 CLINIC PROGRESS NOTE [facility] Name: JORGE CHANCE [facility] CLINIC PROGRESS NOTE [facility] ISJHXDICTAPHONESYS Document Id: [id number] documented in this encounter Plan of Treatment Not on filedocumented as of this encounter Visit Diagnoses Not on filedocumented in this encounter
--- OUTSIDE RECORDS SUMMARY | 2022-05-24 18:30 | XMS_ITS | Encounter Summary ---
:1945 Author Organization [facility] Address [address] [place] [address] Care Team Providers Name Role Phone Unavailable Primary Care Provider Unavailable Encounter Details Date Type Department Care Team Description 04/13/2007 Hospital Encounter HX [facility] Cathy Rosenthal M.D. Social History Tobacco Use [...] encounter Progress Notes Cathy Mccoy M.D. - 04/13/2007 12:00 [place] [address] Name: JORGE CHANCE MR#: [id number] : [birth year] Dictating Provider: Cathy Mccoy MD Serv Date: 04/13/07 CLINIC NOTE S: Jorge is a 62-year-old male with diabetes, coronary artery disease, hypertension, gout, and hyperlipidemia. He had an WI with a stent x4 and an lsg-gj-avdxgnfd arrest. He had an allergic reaction to some of his meds. He was on vacation recently and his blood sugars have been bad since he has been back. He went to do some exercises and could not do as much. He is short of breath when he exercises, but is not having cough or upper respiratory symptoms. He denies dysuria or frequency. He is somewhat constipated, but recently has been better. His blood sugars have been between 280 and 290. He has been cutting back on foods and today he had 140 glucose before eating and 200 after eating. He has been gardening and when he gets up he gets dizzy. O: Blood pressure 86/60. Weight 117.1 kg. Temperature 35.6 C. Pulse 84. Respirations 16. Tympanic membranes are clear. Oropharynx is non-erythematous. Neck is supple without lymphadenopathy. Chest with some left anterior rhonchi. Cardiovascular - Regular rate and rhythm. No murmur. Abdomen is soft, plus bowel sounds, and nontender. Extremities without edema. A: 1. HYPOTENSION. 2. DIABETES, UNCONTROLLED. 3. HISTORY OF CORONARY ARTERY DISEASE. P: We are going to start him on Lantus 10 through a Polantis system, which is a pen. We are going to hold his lisinopril for the time being. His other medicines are Glipizide 10 mg b.i.d., Avandia 2 mg daily, allopurinol 100 mg daily, aspirin daily, metoprolol 12.5 mg b.i.d., metformin 1000 mg b.i.d., and pravastatin 20 mg daily. We are going to check a BNP because of his heart problems and fatigue, chemistry, urine, hemogram, hemoglobin A1c, and AST. We are going to send him to [place] for a chest x-ray because of the rhonchi. Cathy Mccoy MD /neo/pranay Authenticated by Cathy Mccoy MD on 05/16/2007 21:36:29 Authorized physician signature on file [facility] NAME: JORGE CHANCE [facility] MR#: [id number] [place] [address] : 1945 PHYSICIAN: Cathy Mccoy MD VISIT DATE: 04/13/2007 CLINIC PROGRESS NOTE [facility] Name: OFELIAJORGE MJ CLINIC PROGRESS NOTE Source: [facility] ISJHXDICTAPHONESYS Document Id: [id number] Electronically signed by Conversion, [facility] S[employer]hire Stylus Grinder [id number] at 02/13/2017 8:27 AM CDT documented in this encounter Plan of Treatment Not on filedocumented as of this encounter Visit Diagnoses Not on filedocumented in this encounter
--- OUTSIDE RECORDS SUMMARY | 2022-05-24 18:30 | XMS_ITS | Encounter Summary ---
:1945 Author Organization [facility] Address [address] [place] [address] Care Team Providers Name Role Phone Unavailable Primary Care Provider Unavailable Encounter Details Date Type Department Care Team Description 01/18/2011 Hospital Encounter [facility]X [facility] [address] [place], [place] [phone] (Wo rk) Social History Tobacco Use Types [...] or relatives? How often do you attend voodoo or More than 4 times per year 06/14/2019 shinto services? Do you belong to any clubs or Yes 06/14/2019 organizations such as voodoo groups, unions, fraternal or athletic groups, or [...] documented as of this encounter Consult Notes Rajiv Vo M.D. - 01/18/2011 12:00 AM CDT [id number] CHIEF COMPLAINT / REASON FOR VISIT Nose bleeds. HISTORY OF PRESENT ILLNESS The patient is a 65-year-old male here with his , seen in consultation at the request of Cathy Mccoy M.D. for evaluation of nose bleeds. He has had problems intermittently on the right side for the last 6 months. The last episode was 1 week ago. Benadryl seems to help. He has concerns these are related to allergies. He has had some problems with cough for the last 4 days. He is scheduled for evaluation regarding this. CURRENT MEDICATIONS Reviewed and no changes per EMR. He is on aspirin, however, no other blood thinners. ALLERGIES Reviewed and no changes per EMR. PAST MEDICAL / SURGICAL HISTORY 1) Diabetes. 2) Coronary artery disease. 3) Hypertension. PHYSICAL EXAM GENERAL: Healthy-appearing elderly male, alert and oriented, and in no acute distress. Respirations are unlabored. Communicates well. SKIN: Exam of the head and neck is normal. HEAD: Head is normocephalic. ENT: External nose appears normal. He had a bulbus tip. Intranasal examination reveals bilateral premaxillary spurring and right side in area 3 septal deformity. No polyps or lesions noted. He has a superficial blood vessel in the right anterior septum. Left side is clear. IMPRESSION / REPORT / PLAN 1) Recurrent epistaxis. 2) Superficial blood vessel right anterior septum. PLAN: Discussed findings with patient. Discussed diagnosis. Discussed treatment options. He elected to proceed with silver nitrate cautery under topical anesthesia. After topical 4% Xylocaine in Afrin nasal spray on cotton ball, the area was cauterized with silver nitrate without difficulty. No active bleeding. Bacitracin was then applied. We will have him use ointment 3 times daily for 1 month. We will see again in follow up on an as-needed basis. Discussed potential for recurrence. Discussed use of cotton ball with Afrin nasal spray for recurrent bleeding. Discussed potential need for nasal packing if he continues to have problems. Rajiv Vo M.D. thiago cc: Cathy Mccoy M.D. [address] [address] Electronically Signed By: RAJIV VO MD On: 01/27/2011 06:33 PM Source: [facility] MHSDOLBEYNONRADSYS Document Id: [id number] documented in this encounter Miscellaneous Notes Miscellaneous - Conversion, Historical Provider Ser - 01/18/2011 2:31 PM CDT Adult Resolute Professional Intake/History Adult Resolute Professional Intake/History Entered On: 01/18/2011 14:31 CDT Performed On: 01/18/2011 14:31 CDT by ENE GOODWIN Intake Chief Complaint: nose bleeds- past 1 year ENE GOODWIN - 01/18/2011 14:31 CDT Subjective Pain Symptoms: No ENE GOODWIN - 01/18/2011 14:31 CDT Dependent Habits Tobacco Use/Currently Using: No ENE GOODWIN - 01/18/2011 14:31 CDT Allergy Allergies (Active) Bee Stings Estimated Onset Date: Unspecified ; Created By: AMANDEEP BURRELL LPN; Reaction Status: Active ; Category: Environment ; Substance: Bee Stings ; Updated By: AMANDEEP BURRELL LPN; ReviewedDate: 12/21/2010 14:29 CDT clindamycin Estimated Onset Date: Unspecified ; Created By: AMANDEEP BURRELL LPN; Reaction Status:Active ; Category: Drug ; Substance: clindamycin ; Updated By: AMANDEEP BURRELL LPN; Reviewed Date: 12/21/2010 14:29 CDT Lipitor Estimated Onset Date: Unspecified ; Reactions: Chest Pain:Pressure/Tightness ; Created By: AMANDEEP BURRELL LPN; Reaction Status: Active ; Category: Drug ; Substance: Lipitor ; Type: Allergy ; Updated By: AMANDEEP BURRELL LPN; Reviewed Date: 12/21/2010 14:29 CDT penicillin Estimated Onset Date: Unspecified ; Reactions: Hives, SOB - Shortness of breath ; CreatedBy: AMANDEEP BURRELL LPN; Reaction Status: Active ; Category: Drug ; Substance: penicillin ; Type:Allergy ; Updated By: AMANDEEP BURRELL LPN; Reviewed Date: 12/21/2010 14:29 CDT Source: [facility] TasteSpace Document Id: [id number] CDT!7 documented in this encounter Plan of Treatment Not on filedocumented as of this encounter Visit Diagnoses Not on filedocumented in this encounter
--- OUTSIDE RECORDS SUMMARY | 2022-05-24 18:30 | XMS_ITS | Encounter Summary ---
:1945 Author Organization [facility] Address [address] [place] [address] Care Team Providers Name Role Phone Unavailable Primary Care Provider Unavailable Encounter Details Date Type Department Care Team Description 09/19/2008 Hospital Encounter [facility]X [facility] Cathy Rosenthal M.D. Social History Tobacco Use [...] More than 4 times per year 06/14/2019 buddhism services? Do you belong to any clubs [...] encounter Progress Notes Cathy Mccoy M.D. - 09/19/2008 12:00 [place] [address] Name: JORGE CHANCE MR#: [id number] : [birth year] Dictating Provider: Cathy Mccoy MD Serv Date: 09/19/08 CLINIC NOTE S: He is a 63-year-old male here for diabetic check. He is really concerned because his blood sugars have just not been controlled. They have been in the 200s and when he was sick the last 3 days, they were in the 300-400s. He was sick over the weekend two weeks ago. The last three days when he is fasting they are 170s. He has PAST MEDICAL HISTORY of diabetes, gout, hypertension, hyperlipidemia. Had an out of hospital cardiac arrest and [place] with stent times four all in 2005. He had an ALLERGIC reaction to LIPITOR that they put him on after that. He also has had a heel spur removed. He is ALLERGIC to PENICILLIN, BEE STINGS, LIPITOR, BAND-AIDS, CLINDAMYCIN. MEDICATIONS: Glyburide; Avandia; allopurinol; aspirin; metoprolol; metformin; Lantus. We reviewed items on the disease registry. He is going to get an eye exam in September. He refused an influenza vaccine and he is on all the medications except statin drugs which he had an allergic reaction. O: Blood pressure 118/80. Pulse 64. Respiration 16. Temperature 36.1. Weight 119.4 kg. Height 193 cm. He has no thyromegaly. Chest is clear to auscultation bilaterally. Cardiovascular - Regular rate and rhythm. No murmur. Extremities without edema. He has good dorsal pedal pulses bilaterally. Sensation is normal except there is some decrease on the right between the first and second toe only. A: DIABETES, POORLY CONTROLLED. P: We are going to check a hemoglobin A1c, lipid II, AST, microalbumin, and BUN and creatinine. We are going to discontinue his glyburide, and Avandia, and Lantus, and start him on NovoLog 70/30, 12 units in the morning, 6 in the p.m. We will follow closely to see if we need to change those doses. Also gave him a reminder sheet to come back in 3 months nonfasting. MKW:sap Doc#: [id number] Authenticated by Cathy Mccoy MD on 10/09/2008 21:36:55 Authorized physician signature on file Cathy Mccoy MD [facility] NAME: JORGE CHANCE [facility] MR#: [id number] [place] [address] : 1945 PHYSICIAN: Cathy Mccoy MD VISIT DATE: 09/19/2008 [facility] PROGRESS NOTE [facility] Name: JORGE CHANCE [facility] PROGRESS NOTE Source: [facility] ISJHXDICTAPHONESYS Document Id: [id number] Electronically signed by Conversion, [facility] Interior Designer [id number] at 02/12/2017 5:17 PM CDT documented in this encounter Miscellaneous Notes Telephone Encounter - Cathy Mccoy M.D. - 09/19/2008 12:00 AM FUND CONTROLLER [facility] [place] [address] Name: JORGE CHANCE MR#: [id number] Dictating Provider: Cathy Mccoy MD TELEPHONE NOTE DATE OF CALL: 10/31/2008 He is up to 28 units b.i.d. and his sugars are 300 mg in the evening, and 170 to 200 in the morning. He was on glipizide and Lantus 5 units and his sugars were better He is going to restart that and so we called that in b.i.d. for one month. Go up to 20 units on the Lantus. MKW:sbs Doc#: [id number] Authenticated by Cathy Mccoy MD on 11/08/2008 13:48:14 Authorized physician signature on file Cathy Mccoy MD [facility] NAME: JUWANEARLENE JORGE J [facility] MR#: [id number] [place] [address] : 1945 PHYSICIAN: Cathy Mccoy MD [facility] TELEPHONE NOTE [facility] Name: JORGE CHANCE TELEPHONE NOTE Source: [facility] ISJHXDICTAPHONESYS Document Id: [id number] documented in this encounter Plan of Treatment Not on filedocumented as of this encounter Visit Diagnoses Not on filedocumented in this encounter
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
--- OUTSIDE RECORDS SUMMARY | 2022-05-24 18:31 | XMS_ITS | Encounter Summary ---
:1945 Author Organization [facility] Address [address] [place] [address] Care Team Providers Name Role Phone Unavailable Primary Care Provider Unavailable Encounter Details Date Type Department Care Team Description 11/19/2005 - Hospital Encounter HX [facility] Leona Key M.D. 11/21/2005 /Cathy Jordan M.D. Social History Tobacco Use Types Packs/Day [...] More than 4 times per year 06/14/2019 alevism services? Do you belong to any clubs [...]
--- OUTSIDE RECORDS SUMMARY | 2022-05-24 18:31 | XMS_ITS | Encounter Summary ---
:1945 Author Organization [facility] Address [address] [place] [address] Care Team Providers Name Role Phone Unavailable Primary Care Provider Unavailable Encounter Details Date Type Department Care Team Description 10/04/2006 Hospital Encounter HX NO MAPPING Logan Claros D.P.M. [address] [place] [address] [phone] (Wo rk) Social History Tobacco Use Types [...] Name Priority Date/Time Associated Comments Diagnosis DX FOOT UNILATERAL 2 Routine 10/04/2006 10:01 AM Results for this VIEWS FOAM DISPENSER procedure are i n the results section. documented in this encounter Results DX Foot Unilateral 2 Views (10/04/2006 10:01 AM FOAM DISPENSER) Anatomical Region Laterality Modality Lower Extremity, Foot N/A Radiographic Imagi ng Specimen (Source) Anatomical Collection Method Collection Time Re ceived Time Location / / Volume Laterality 10/04/2006 10:01 AM FOAM DISPENSER Narrative 10/04/2006 10:01 AM FOAM DISPENSER Originally Signed By James Craven M.D. -UNKNOWN, PERSONNEL Reason for exam: C-ARM RIGHT OSCALSIS, S PURRING INDICATION FOR EXAM: ?? C-arm. ??Spurrin g. RIGHT FOOT: ??The portable intensifier u nit was utilized during apparent osteotomy procedure. ??A single spot film obtained during the procedure demonstrates an Achilles a nd plantar spur off the calcaneus. Exam performed at [facility]. ?Regional unit number: [id number] Regional staff physician: ELVIA ? Regional [place] [facility] [place] Regional x-ray number: [phone] ?? Regional phone number: [phone] Authorized physician signature on file a t [facility]. Procedure Note ProviderAnder M.D. - 02/17/2017F ormatting of this note might be different from the original. Originally Signed By Eloise Rodriguez -UNKNOWN, PERSONNEL Reason for exam: C-ARM RIGHT OSCALSIS, S PURRING INDICATION FOR EXAM: C-arm. Spurring. RIGHT FOOT: The portable intensifier uni t was utilized during apparent osteotomy procedure. A single s pot film obtained during the procedure demonstrates an Achilles a nd plantar spur off the calcaneus. Exam performed at [facility]. Regional unit number: [id number] Regional staff physician: ELVIA Regional location: [facility] Regional x-ray number: [phone] Regional phone number: [phone] Authorized physician signature on file a t [facility]. Historical Provider IMG DIAGNOSTIC IMAGING PROCE DURES documented in this encounter Visit Diagnoses Not on filedocumented in this encounter
--- OUTSIDE RECORDS SUMMARY | 2022-05-24 18:31 | XMS_ITS | Encounter Summary ---
:1945 Author Organization [facility] Address [address] [place] [address] Care Team Providers Name Role Phone Unavailable Primary Care Provider Unavailable Encounter Details Date Type Department Care Team Description 08/16/2006 Hospital Encounter HX [facility] Moy Claros, Brenda.PKamilaMKamila [address] [place] [address] [phone] (Wo rk) Social History Tobacco Use Types [...]
--- OUTSIDE RECORDS SUMMARY | 2022-05-24 18:31 | XMS_ITS | Encounter Summary ---
:1945 [address] [facility] Address [address] [place] [address] Care Team Providers Name Role Phone Unavailable Primary Care Provider Unavailable Encounter Details Date Type Department Care Team Description 10/13/2006 Hospital [facility] [...]
--- OUTSIDE RECORDS SUMMARY | 2022-05-24 18:31 | XMS_ITS | Encounter Summary ---
:1945 Author Organization [facility] Address [address] [place] [address] Care Team Providers Name Role Phone Unavailable Primary Care Provider Unavailable Encounter Details Date Type Department Care Team Description 03/27/2006 Hospital Encounter [facility]X [facility] Dillon Marquez M.D. [address] [place] [phone] (Wo rk) Social History Tobacco Use Types [...]
--- OUTSIDE RECORDS SUMMARY | 2022-05-24 18:31 | XMS_ITS | Encounter Summary ---
:1945 Author Organization [facility] Address [address] [place] [address] Care Team Providers Name Role Phone Unavailable Primary Care Provider Unavailable Encounter Details Date Type Department Care Team Description 10/13/2006 Hospital Encounter [facility]X [facility] Romulo [...]
--- OUTSIDE RECORDS SUMMARY | 2022-05-24 18:31 | XMS_ITS | Encounter Summary ---
:1945 Author Organization [facility] Address [address] [place] [address] Care Team Providers Name Role Phone Unavailable Primary Care Provider Unavailable Encounter Details Date Type Department Care Team Description 09/28/[address] [facility] [place] Cathy Rosenthal M.D. [...]
--- OUTSIDE RECORDS SUMMARY | 2022-05-24 18:31 | XMS_ITS | Encounter Summary ---
:1945 Author Organization [facility] Address [address] [place] [address] Care Team Providers Name Role Phone Unavailable Primary Care Provider Unavailable Encounter Details Date Type Department Care Team Description 12/16/2005 Hospital Encounter [facility] Cathy Rosenthal M.D. Social History Tobacco Use [...]
--- OUTSIDE RECORDS SUMMARY | 2022-05-24 18:31 | XMS_ITS | Encounter Summary ---
:1945 Author Organization [facility] Address [address] [place] [address] Care Team Providers Name Role Phone Unavailable Primary Care Provider Unavailable Encounter Details Date Type Department Care Team Description 02/14/2006 Hospital Encounter [facility] Cathy Rosenthal M.D. Social History Tobacco Use [...]
--- OUTSIDE RECORDS SUMMARY | 2022-05-24 18:31 | XMS_ITS | Encounter Summary ---
:1945 Author Organization [facility] Address [address] [place] [address] Care Team Providers Name Role Phone Unavailable Primary Care Provider Unavailable Encounter Details Date Type Department Care Team Description 02/14/2006 Hospital Encounter HX NO MAPPING Cathy Mccoy [...]
--- OUTSIDE RECORDS SUMMARY | 2022-05-24 18:31 | XMS_ITS | Encounter Summary ---
:1945 Author Organization [facility] Address [address] [place] [address] Care Team Providers Name Role Phone Unavailable Primary Care Provider Unavailable Encounter Details Date Type Department Care Team Description 10/04/2006 Hospital Encounter [facility] Geoffrey Claros D.PKamilaM. [address] [place] [address] [phone] (Wo rk) Social History Tobacco Use [...] this encounter OR Notes Op Note - Logan Claros D.PKamilaM. - 10/04/2006 12:00 [place] [address] Name: JORGE CHANCE MR#: [id number] : [birth year] Age: 61 Dictating Provider: Logan Claros Adm/Serv Date: OPERATIVE REPORT DATE OF OPERATION: 10/04/2006 PREOPERATIVE DIAGNOSIS: 1. PLANTAR CALCANEAL SPURS, RIGHT FOOT. 2. PLANTAR FASCIITIS, RIGHT FOOT. POSTOPERATIVE DIAGNOSIS: 1. PLANTAR CALCANEAL SPURS, RIGHT FOOT. 2. PLANTAR FASCIITIS, RIGHT FOOT. OPERATION: 1. EXCISION OF MULTIPLE PLANTAR CALCANEAL EXOSTOSES, RIGHT FOOT. 2. PLANTAR FASCIOTOMY, RIGHT FOOT. ANESTHESIA: Local with IV sedation. ESTIMATED BLOOD LOSS: Minimal. SPONGE AND NEEDLE COUNT: Intact. OPERATIVE TECHNIQUE: The patient was taken to the operating room and placed in the supine position following administration of local anesthesia, posterior tibial nerve block with 0.5% Marcaine. The patient was placed in the supine position, and prepped and draped in the usual sterile fashion. Attention was drawn to the medial aspect of the right heel where a linear incision was performed at the transition from plantar to dorsal skin. The incision was deep using blunt and sharp dissection taking care to avoid and retract all neurovascular structures encountered deep to the level of the medial calcaneal tuberosity, and a plantar fasciotomy was performed at the anterior tubercle. Using sharp dissection the fascia was freed from the plantar surface of the calcaneus to allow for exposure of the anterior and inferior spur. These were then resected with the use of a reciprocating rasp, and with the use of intraoperative C-arm imaging confirmed the removal. The wound was flushed and filled with some sterile saline. The area was injected with Decadron. Closure was then afforded with #3-0 Vicryl for deep and superficial fascia, and #3-0 nylon for the skin. A dry sterile dressing and sterile stockinette and surgical shoe, as well as posterior splint. The patient tolerated the procedures well and was released from the operating room with vital signs stable and in good condition. Logan Claros DPM sbs cc:Cathy Mccoy MD RE: JORGE CHANCE J MR#: [id number] PAGE: 2 [facility] NAME: JORGE CHANCE [facility] OPERATIVE REPORT [facility] NAME: JORGE CHANCE [facility] MR#: [id number] [place] [address] : 1945 AGE: 61Y PHYSICIAN: Logan Claros DPM ADMIT DATE: 10/04/2006 OPERATIVE REPORT [facility] NAME: JORGE CHANCE [facility] OPERATIVE REPORT [facility] Name: OFELIASANDYJORGEBRANT BARKER OPERATIVE REPORT Source: [facility] Document Id: [id number] Electronically signed by Gricelda, [facility] Life Science Technician [id number] at 02/13/2017 7:15 AM CDT documented in this encounter Plan of Treatment Not on filedocumented as of this encounter Visit Diagnoses Not on filedocumented in this encounter
--- OUTSIDE RECORDS SUMMARY | 2022-05-24 18:31 | XMS_ITS | Encounter Summary ---
:[address] [facility] Address [address] [place] [address] Care Team Providers Name Role Phone Unavailable Primary Care Provider Unavailable Encounter Details Date Type Department Care Team Description 02/07/2006 Hospital Encounter [facility] [place] Cathy Rosenthal M.D. Social History Tobacco Use [...] More than 4 times per year 06/14/2019 mosque services? Do you belong to any clubs [...]
--- OUTSIDE RECORDS SUMMARY | 2022-05-24 18:31 | XMS_ITS | Encounter Summary ---
:1945 Author Organization [facility] Address [address] [place] [address] Care Team Providers Name Role Phone Unavailable Primary Care Provider Unavailable Encounter Details Date Type Department Care Team Description 11/29/[address] [facility] Marie Marcial M.D. [address] [facility], [facility] [address] [place] [address] (Wo rk) Social History Tobacco [...]
--- OUTSIDE RECORDS SUMMARY | 2022-05-24 18:31 | XMS_ITS | Encounter Summary ---
:1945 Author Organization [facility] Address [address] [place] [address] Care Team Providers Name Role Phone Unavailable Primary Care Provider Unavailable Encounter Details Date Type Department Care Team Description 10/13/2006 Hospital Encounter [facility] Serena Galvez M.D. [address] [place] [address] [phone] (Wo rk) Social History Tobacco Use Types [...] More than 4 times per year 06/14/2019 denominational services? Do you belong to any clubs [...]
--- OUTSIDE RECORDS SUMMARY | 2022-05-24 18:31 | XMS_ITS | Encounter Summary ---
:1945 Author Organization [facility] Address [address] [place] [address] Care Team Providers Name Role Phone Unavailable Primary Care Provider Unavailable Encounter Details Date Type Department Care Team Description 11/28/2005 Hospital Encounter [facility] Cathy Rosenthal [...]
--- OUTSIDE RECORDS SUMMARY | 2022-05-24 18:31 | XMS_ITS | Encounter Summary ---
:1945 Author Organization [facility] Address [address] [place] [address] Care Team Providers Name Role Phone Unavailable Primary Care Provider Unavailable Encounter Details Date Type Department Care Team Description 10/02/2006 Hospital Encounter [facility] Tammy Mccoy M.D. Social History Tobacco [...]
--- OUTSIDE RECORDS SUMMARY | 2022-05-24 18:31 | XMS_ITS | Encounter Summary ---
:1945 Author Organization [facility] Address [address] [place] [address] Care Team Providers Name Role Phone Unavailable Primary Care Provider Unavailable Encounter Details Date Type Department Care Team Description 12/28/2005 Hospital Encounter HX NO MAPPING Nallely Marcial M.D. [address] [place] [address], [facility] [address] [place] [address] (Wo rk) Social History Tobacco [...]
--- OUTSIDE RECORDS SUMMARY | 2022-05-24 18:31 | XMS_ITS | Encounter Summary ---
:1945 Author Organization [facility] Address [address] [place] [address] Care Team Providers Name Role Phone Unavailable Primary Care Provider Unavailable Encounter Details Date Type Department Care Team Description 10/11/2006 Hospital Encounter [facility]X [facility] Moy Claros, Brenda.P.MKamila [address] [place] [address] [phone] (Wo rk) Social History Tobacco Use Types [...]
--- OUTSIDE RECORDS SUMMARY | 2022-05-24 18:31 | XMS_ITS | Encounter Summary ---
:1945 Author Organization [facility] Address [address] [place] [address] Care Team Providers Name Role Phone Unavailable Primary Care Provider Unavailable Encounter Details Date Type Department Care Team Description 08/09/2006 Hospital Encounter [facility] Cathy [...]
--- OUTSIDE RECORDS SUMMARY | 2022-05-24 18:31 | XMS_ITS | Encounter Summary ---
:1945 Author Organization [facility] Address [address] [place] [address] Care Team Providers Name Role Phone Unavailable Primary Care Provider Unavailable Encounter Details Date Type Department Care Team Description 10/31/2005 - Hospital Encounter HX [facility] Marcial, 11/04/2005 /EDWIN Salazar M.D. [address] [facility], [facility] [address] [place] [address] Social History Tobacco Use Types Packs/Day Years [...] or relatives? How often do you attend protestant or More than 4 times per year 06/14/2019 alevism services? Do you belong to any clubs or Yes 06/14/2019 organizations such as protestant groups, unions, fraternal or athletic groups, or [...]
--- OUTSIDE RECORDS SUMMARY | 2022-05-24 18:31 | XMS_ITS | Encounter Summary ---
:1945 Author Organization [facility] Address [address] [place] [address] Care Team Providers Name Role Phone Unavailable Primary Care Provider Unavailable Encounter Details Date Type Department Care Team Description 12/19/[address] [facility] Marie Marcial M.D. [address] [facility], [facility] [address] [place] [address] (Wo rk) Social History Tobacco [...] or relatives? How often do you attend orthodox or More than 4 times per year 06/14/2019 zoroastrianism services? Do you belong to any clubs or Yes 06/14/2019 organizations such as orthodox groups, unions, fraternal or athletic groups, [...]
--- NOTE | 2022-05-31 10:40 | W.PM.SLEEP ---
Sleep Study Details Details Interpreting Provider: Francis Murdock MD Date of Sleep Study: 05/24/22 Sleep Study Details: STUDY TYPE:? 05/24/2022 ? BMI:? 30.8 ORDERING PROVIDER:? Guy INDICATION:? Concerns about sleep apnea ? SLEEP SUMMARY:? Sleep time 4:20 a.m. 1.5, efficiency 87.6, latency 14 minutes, REM latency 334 minutes Arousal index 5.7 RESPIRATORY SUMMARY:? Mean oxygen awake 96, asleep 95, low oxygen was 80, 0.7 minutes oxygen between 80 and 88% AHI 44.8, RDI 49. There was no REM stage sleep seen during the diagnostic portion of the study. Supine AHI 68.8, nonsupine AHI 16.4. CPAP titration was performed and. The patient was titrated to a pressure of 9 and included nonsupine REM sleep. AHI was 0 at a pressure of 9 in the lateral position. PERIODIC LIMB MOVEMENTS OF SLEEP:? Pre treatment index 84.7, index with arousal 0. Post treatment index 56.8, index with arousal 0.4 CARDIAC:? Awake 57, asleep 52 PVCs were noted. IMPRESSION:? Severe obstructive sleep apnea with significant supine position dependency. CPAP titration was effective at a pressure of 9 in the nonsupine position. RECOMMENDATION: AutoSet CPAP at a pressure of 4-18 with close follow-up. Note the patient was easily titrated to a pressure of 9 in the lateral position.
== END 2022-05-24 18:15 | disposition home or self-care (01) ==
PROVIDERS: PCP Family Medicine; Visit Provider Family Medicine
DX: G47.33 Obstructive sleep apnea (adult) (pediatric) (principal)
CPT/HCPCS: 95810

== ENCOUNTER 2023-01-04 11:26 | Outpatient (CLI) | payer MEDICARE, SELFPAY ==
[2023-01-04 13:33] LABS: Chloride* 110 mmol/L (96-114); Potassium* 4.5 mmol/L (3.6-5.1); Sodium* 140 mmol/L (135-149)
[2023-01-04 13:36] LABS: Blood Urea Nitrogen* 28 mg/dL (7-30); Carbon Dioxide* 23 mmol/L (20-32); Cholesterol* 164 mg/dL (90-199); Creatinine* 1.3 mg/dL (0.5-1.5); Estimated Glomerular Filt Rate 56 ml/min; Glucose* 151 mg/dL (60-115); Triglycerides* 219 mg/dL (40-149)
[2023-01-04 13:37] LABS: HDL Cholesterol* 32 mg/dL (>=40); LDL Cholesterol Calculated 88 mg/dL (<100)
== END 2023-01-04 11:27 | disposition home or self-care (01) ==
PROVIDERS: PCP Family Medicine; Visit Provider Family Medicine
DX: I10 Essential (primary) hypertension (principal); E78.5 Hyperlipidemia, unspecified
CPT/HCPCS: 80048; 80061

== ENCOUNTER 2023-06-01 12:47 | Emergency (ER) | payer MEDICARE, SELFPAY ==
[2023-06-01] VITALS (8 sets, daily range): BP systolic 137–153; BP diastolic 76–82; PULSE 62–67; RESP 16; O2SAT 93–96
[2023-06-01 13:05] LABS: Glucose, Point-of-Care* 139 mg/dl (60-115)
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
[2023-06-01 13:16] LABS: Troponin, Point-of-Care* 0.01 ng/ml (0.01-0.04)
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
--- NOTE | 2023-06-01 14:12 | ED.NURSE ---
Patient's small laceration above left eye cleansed with hibiclens. Ordered room tray; patient had hamburger, mashed potatoes, and OJ. Ate 100%
== END 2023-06-01 16:02 | disposition home or self-care (01) ==
PROVIDERS: Emergency Provider Family Medicine; PCP Family Medicine
DX: S01.111A Laceration without foreign body of right eyelid and periocular area, initial encounter (principal); E11.649 Type 2 diabetes mellitus with hypoglycemia without coma; V89.2XXA Person injured in unspecified motor-vehicle accident, traffic, initial encounter
CPT/HCPCS: 12001; 36415; 70450; 82947; 82962; 84484; 93005; 99284; 99285

== ENCOUNTER 2024-04-01 11:47 | Outpatient (CLI) | payer MEDICARE, SELFPAY ==
--- OUTSIDE RECORDS SUMMARY | 2024-04-01 11:50 | XMS_ITS | Clinical Summary ---
Author Organization [employer] [facility] Address [place], [place] [address] Care Team Providers Care Special Effects Person Name Role Phone Som Tovar MD Primary Care Provider + Allergies Active Allergy Reactions Criticality Noted Date Comments Adhesive Tape-Silicones Rash 05/05/2011 Aspirin Other - Describe In Comment Field 11/01/2011 Nosebleed Atorvastatin Other - Describe In Comment Field 03/13/2009 Chest pain Bee Venom Protein (Honey Bee) Other - Describe In Comment Field 03/13/2009 Clindamycin Other - Describe In Comment Field 03/13/2009 Lisinopril Other - Describe In Comment Field 06/09/2020 Elevated potassium Metformin GI Upset 07/24/2020 Hypokalemia Penicillins Dyspnea 03/13/2009 Hives Medications Medication Sig Dispensed Refills Start Date End Date Status BD Insulin Syringe Ultra-Fine 1 mL 31 gauge x 5/16 USE TWO TIMES A DAY 11/19/2022 Active metoprolol tartrate (LOPRESSOR) 25 mg tablet 01/09/2023 Active Creon 24,000-76,000 -120,000 unit Delayed-Release capsule 01/09/2023 A ctive HumaLOG Mix 75-25,U-100,Insuln 100 unit/mL (75-25) injection 01/09/2023 Active OneTouch Ultra2 Meter 01/23/2023 Act maurilio allopurinoL (ZYLOPRIM) 100 mg tablet 01/09/2023 Active Social History Tobacco Use Types Packs/Day Years Used Date Smoking Tobacco: Never Assessed Sex and Gender Information Value Date Recorded Sex Assigned at Not on file Gender Identity Not on file Sexual Orientation Not on file Last Filed Vital Signs Vital Sign Reading Time Taken Comments Blood Pressure - - Pulse 82 02/09/2023 1:47 PM CDT Temperature - - Respiratory Rate - - Oxygen Saturation 92% 02/09/2023 1:47 PM CDT Inhaled Oxygen Concentration - - Weight 117.3 kg (258 lb 8 oz) 02/09/2023 1:47 PM CDT Height - - Body Mass Index - - Plan of Treatment Health Maintenance Due Date Last Done Comments Tdap 02/23/1955 Depression screening for age 12+ 1956 BMI (ht and wt on same day) for age 18+ 02/23/1962 Tetanus booster 1964 Zoster (shingles) series for age 50+ (1 of 2) 02/23/1994 Medicare Wellness for age 65+ 02/23/2009 Pneumococcal series for age 65+ (1 of 1 - PCV) 02/23/2009 COVID-19 vaccine series ( season) 2023 06/24/2022, 11/24/2020, 11/03/2020 Influenza for age 65+ 05/12/2024 Care Teams Special Effects Person Relationship Specialty Start Date End Date Som Tovar MD [address] [place] [address] PCP - General Family Practice 02/09/23
== END 2024-04-01 11:48 | disposition home or self-care (01) ==
PROVIDERS: PCP Family Medicine; Visit Provider Family Medicine
DX: I10 Essential (primary) hypertension (principal); E11.9 Type 2 diabetes mellitus without complications; E78.2 Mixed hyperlipidemia; Z79.4 Long term (current) use of insulin
CPT/HCPCS: 80048; 80061; 85025

== ENCOUNTER 2024-06-04 14:03 | Outpatient (CLI) | payer MEDICARE, SELFPAY ==
--- OUTSIDE RECORDS SUMMARY | 2024-06-04 14:07 | XMS_ITS | Clinical Summary ---
Author Organization [employer] [facility] Address [place], [place] [address] Care Team Providers Care Legal Secretary Receptionist Name Role Phone Som Tovar MD Primary [...] 65+ (1 of 1 - PCV) 02/23/2009 RSV vaccine for adults or pr egnancy (1 - 1-dose 75+ series) 02/23/2019 COVID-19 vaccine series ( season) 2024 06/24/2022, 11/24/2020, 11/03/2020 Influenza for age 65+ 05/12/2024 Care Teams Legal Secretary Receptionist Relationship Specialty Start Date End Date Som Tovar MD [address] [place] [address] PCP - General Family Practice 02/09/23
== END 2024-06-04 14:04 | disposition home or self-care (01) ==
PROVIDERS: PCP Family Medicine; Visit Provider Family Medicine
DX: E55.9 Vitamin D deficiency, unspecified (principal); I10 Essential (primary) hypertension; E78.2 Mixed hyperlipidemia; R53.83 Other fatigue; Z13.21 Encounter for screening for nutritional disorder; Z13.29 Encounter for screening for other suspected endocrine disorder
CPT/HCPCS: 80048; 80076; 82306; 82607; 84443

== ENCOUNTER 2025-07-09 12:25 | Outpatient (CLI) | payer MEDICARE, SELFPAY | END 2025-07-09 12:26 | disposition home or self-care (01) | PROVIDERS: PCP Family Medicine; Visit Provider Family Medicine | DX: E11.9 Type 2 diabetes mellitus without complications (principal); E55.9 Vitamin D deficiency, unspecified; E78.2 Mixed hyperlipidemia; I25.10 Atherosclerotic heart disease of native coronary artery without angina pectoris; I13.10 Hypertensive heart and chronic kidney disease without heart failure, with stage 1 through stage 4 chronic kidney disease, or unspecified chronic kidney disease; N18.30 Chronic kidney disease, stage 3 unspecified; R53.83 Other fatigue; Z79.4 Long term (current) use of insulin | CPT/HCPCS: 80048; 80061; 82043; 82306; 82570; 84460; 85025 ==